=== PATIENT | male | born 1980 | race Caucasian/White ===

== ENCOUNTER 2024-06-12 19:00 | Outpatient (REF) | payer BC, SELFPAY ==
--- OUTSIDE RECORDS SUMMARY | 2024-06-12 19:03 | XMS_ITS ---
Author Organization Unknown Address [address] [place] [address] [phone] Phone Care Team Providers Care Sort Worker Name Role Phone CLYDE Baltazar Attending Unavailable Results FERRITIN - Collect Date/Time : 04/13/2022 08:16 [facility] ID: [id number] [address] [place] [address], [address] LOINC: 2276-4 Test Value Unit Reference Range Code Code System Flag FERRITIN 86 ng/mL L=8 H=388 2276-4 LOINC IRON BINDING CAPACITY - Piter ect Date/Time: 04/13/2022 08:16 [facility] ID: [id number] [address] [place] [address], [address] LOINC: 2500-7 Test Value Unit Reference Range Code Code System Flag IBC 325 ug/dL L=260 H=400 2500-7 LOINC IRON - Collect Date/Time: 08:16 [facility] ID: [id number] [address] [place] [address], [id number] LOINC: 2498-4 Test Value Unit Reference Range Code Code System Flag IRON 85 ug/dL L=35 H=150 2498-4 LOINC HEMOGLOBIN A1C* - Collect Da te/Time: 04/13/2022 08:16 [facility] ID: [id number] [address] [place] [address], [address] LOINC: 4548-4 Test Value Unit Reference Range Code Code System Flag Hgb A1c 5.7 % L=3.8 H=5.7 4548-4 LOINC MEAN BLOOD GLUCOSE 104 mg/dL 23324-0 LOINC LAMOTRIGINE (LAMICTAL)* - Co llect Date/Time: 04/13/2022 08:16 [facility] ID: [id number] [address] [facility] [place], [place], [phone] LOINC: 6948-4 Test Value Unit Reference Range Code Code System Flag Lamotrigine, S 5.7 3.0-15.0 6948-4 LOINC CBC W/ DIFFERENTIAL* - Colle ct Date/Time: 04/13/2022 08:16 [facility] ID: [id number] [address] [place] [address], [address] LOINC: 97433-0 Test Value Unit Reference Range Code Code System Flag WBC 4.92 th/cmm L=5.00 H=10.00 6690-2 LOINC L NEUT % 41.1 % L=40.0 H=80.0 LYMPH % 43.9 % L=10.0 H=50.0 MONO % 8.9 % L=2.0 H=12.0 24928-7 LOINC EOS % 4.9 % L=0.0 H=8.0 BASO % 1.0 % L=0.0 H=3.0 IG % 0.2 % L=0.0 H=1.1 2514-8 LOINC NRBC % 0.0 % L=0.0 H=0.0 98164-2 LOINC NEUT abs count 2.0 th/cmm L=1.6 H=8.4 751-8 LOINC LYMPH abs count 2.2 th/cmm L=1.5 H=4.0 731-0 LOINC MONO abs count 0.4 th/cmm L=0.2 H=1.0 742-7 LOINC EOS abs count 0.2 th/cmm L=0.0 H=0.5 711-2 LOINC BASO abs count 0.1 th/cmm L=0.0 H=0.2 704-7 LOINC IG abs count 0.0 th/cmm L=0.0 H=0.1 06181-9 LOINC NRBC abs count 0.0 mil/cmm L=0.0 H=0.0 66295-1 LOINC RBC 4.70 mil/cmm L=4.30 H=6.20 789-8 LOINC HEMOGLOBIN 14.7 gm/dL L=13.0 H=17.0 718-7 LOINC HEMATOCRIT 43 % L=45 H=52 4544-3 LOINC L MCV 91 fL L=82 H=92 787-2 LOINC MCH 31.3 pg L=27.0 H=31.0 785-6 LOINC H MCHC 34.3 % L=32.0 H=36.0 786-4 LOINC RDW-SD 41.1 fL L=39.0 H=49.0 788-0 LOINC PLATELET COUNT 199 th/cmm L=150 H=450 777-3 LOINC COMPREHENSIVE METABOLIC PANE L (CMP) - Collect Date/Time: 04/13/2022 08:16 [facility] ID: [id number] [address] [place] [address], [address] LOINC: 29295-6 Test Value Unit Reference Range Code Code System Flag GLUCOSE 102 mg/dL L=70 H=116 2345-7 LOINC BUN 20 mg/dL L=6 H=25 3094-0 LOINC CREATININE 0.99 mg/dL L=0.67 H=1.17 2160-0 LOINC SODIUM SERUM 139 mmol/L L=136 H=145 2951-2 LOINC POTASSIUM SERUM 4.5 mmol/L L=3.4 H=5.2 2823-3 LOINC CHLORIDE SERUM 103 mmol/L L=96 H=110 2075-0 LOINC CARBON DIOXIDE (CO2) 33 mmol/L L=22 H=34 2028-9 LOINC ANION GAP 2.7 mmol/L 13627-6 LOINC CALCIUM SERUM 8.4 mg/dL L=8.2 H=10.2 82921-5 LOINC BILIRUBIN TOTAL 0.5 mg/dL L=0.0 H=1.3 1975-2 LOINC ALK. PHOS. 54 U/L L=46 H=116 6768-6 LOINC SGOT (AST) 52 U/L L=15 H=37 1920-8 LOINC H SGPT (ALT) 77 U/L L=12 H=78 1742-6 LOINC TOTAL PROTEIN 7.1 gm/dL L=6.0 H=8.0 2885-2 LOINC ALBUMIN 4.2 gm/dL L=3.4 H=5.0 1751-7 INC AGE 42 years eGFR (non-Afr.Amer.) 83 mL/min 80727-0 INC eGFR (Afr-Algerian) 100 mL/min 76440-7 [facility] Social History Type Status Start Date End Date Code Code Syst em Smoking History Never smoker (Never Smoked) 491173642 SNOMED CT Sex Male Medications Medication Start Date End Date Route Frequency Dose Code Code System Medication Instructions Home Meds Atorvastatin Calcium 40MG Oral Tablet 03/16/2024 03/16/2024 ORAL BEDTIME 40 MILLIGRAMS 209628 RxNorm TAKE 40 MILLIGRAMS ORAL BEDTIME LaMICtal 200MG Oral Tablet 03/16/2024 05/31/2024 ORAL TWICE A DAY 200 MILLIGRAMS 786410 RxNorm TAKE 200 MILLIGRAMS ORAL TWICE A DAY Eliquis 5MG Oral Tablet 03/16/2024 03/16/2024 ORAL TWICE A DAY 1 TABLET 2075456 RxNorm TAKE 1 TABLET ORAL TWICE A DAY Atorvastatin Calcium 40MG Oral Tablet 03/16/2024 03/16/2024 ORAL BEDTIME 40 MILLIGRAMS 607487 RxNorm TAKE 40 MILLIGRAMS ORAL BEDTIME Eliquis 5MG Oral Tablet 03/16/2024 03/16/2024 ORAL TWICE A DAY 1 TABLET 6165159 RxNorm TAKE 1 TABLET ORAL TWICE A DAY Atorvastatin Calcium 40MG Oral Tablet 03/16/2024 Unknown ORAL BEDTIME 1 TABLET 095562 RxNorm TAKE 1 TABLET ORAL BEDTIME Aspirin 81MG Oral Tablet, Enteric Coated 03/16/2024 Unknown ORAL DAILY 1 TABLET 562462 RxNorm TAKE 1 TABLET ORAL DAILY Clopidogrel 75MG Oral Tablet 03/16/2024 05/31/2024 ORAL DAILY 1 TABLET 910431 RxNorm TAKE 1 TABLET ORAL DAILY Cephalexin 500MG Oral Capsule 03/29/2024 05/31/2024 ORAL FOUR TIMES A DAY 1 CAPSULE 099589 RxNorm TAKE 1 CAPSULE ORAL FOUR TIMES A DAY x 5 days cefTRIAXone 2GM Injection Powder for Solution 06/08/2024 Unknown IVPB Q24H 2 GRAM RxNorm 2 GRAM IVPB Q24H LORazepam 0.5 MG Oral Tablet 06/08/2024 Unknown ORAL NEEDED DAILY 0.5 MG RxNorm TAKE 0.5 MG ORAL NEEDED DAILY lamoTRIgine 200MG Oral Tablet 06/08/2024 Unknown ORAL TWICE A DAY 200 MILLIGRAMS 19830723 RxNorm TAKE 200 MILLIGRAMS ORAL TWICE A DAY Assessment You had the following problems:STROKEAORTIC REGURGITATIONMITRAL REGURGITATIONBACTEREMIAINFECTIVE ENDOCARDITIS Hospital Discharge Instructions Should you have any questions prior to discharge, please contact a member of your healthcare team. If you have left the hospital and have any questions, please contact your primary care physician. Reason For Referral No Data Found Problems Problem Start Date Resolved Date Status Code Code System STROKE active 001926888 SNOMED-CT AORTIC REGURGITATION active 68880206 SNOMED-CT MITRAL REGURGITATION active 65228199 SNOMED-CT BACTEREMIA active 3031288 SNOMED-CT INFECTIVE ENDOCARDITIS active 5628684 07 SNOMED-CT MITRAL REGURGITATION 05/31/2024 resolved 00472594 SNOMED-CT CVA 03/29/2024 resolved 690123390 SNOMED-CT AORTIC REGURGITATION 05/31/2024 resolved 12137220 SNOMED-CT SEIZURE DISORDER 03/08/2024 resolved 782911412 SN OMED-CT Allergies and Adverse Reactions Allergy Substance Reaction Severity Start Date Concern Status Co de Code System No Known Allergies Active 507188781 SNO MED-CT Plan of Treatment US DVT BILAT 05/24/2024 LAB DRAW 15MIN 04/11/2024 LAB DRAW 15MIN 07/07/2022 LAB DRAW 15MIN 04/13/2022 Encounters Encounter Diagnosis Start Date Code Code Sys tem Epilepsy, not refractory 04/13/2022 639700709 SNO MED-CT Personal Care Team Section Performer Name Performer Role Active Date Inactive Da destiney
--- OUTSIDE RECORDS SUMMARY | 2024-06-12 19:03 | XMS_ITS ---
Author Organization Unknown Address [address] [place] [address] [phone] Phone Care Team Providers Care Cleaners Name Role Phone SIRI Downey Attending Unavailable CLYDE Baltazar Primary Unavailable Results LAMOTRIGINE (LAMICTAL)* - Co llect Date/Time: 07/07/2022 08:25 [facility] ID: [id number] [address] [place] [address], [id number] LOINC: 6948-4 Test Value Unit Reference Range Code Code System Flag Lamotrigine, S 4.3 3.0-15.0 6948-4 LOINC CBC W/ DIFFERENTIAL* - Colle ct Date/Time: 07/07/2022 08:25 [facility] ID: [id number] [address] [place] [address], [address] LOINC: 94968-8 Test Value Unit Reference Range Code Code System Flag WBC 3.83 th/cmm L=5.00 H=10.00 6690-2 LOINC L NEUT % 36.6 % L=40.0 H=80.0 L LYMPH % 48.6 % L=10.0 H=50.0 MONO % 9.1 % L=2.0 H=12.0 74775-2 LOINC EOS % 4.4 % L=0.0 H=8.0 BASO % 1.3 % L=0.0 H=3.0 IG % 0.0 % L=0.0 H=1.1 2514-8 LOINC NRBC % 0.0 % L=0.0 H=0.0 68008-4 LOINC NEUT abs count 1.4 th/cmm L=1.6 H=8.4 751-8 LOINC L LYMPH abs count 1.9 th/cmm L=1.5 H=4.0 731-0 LOINC MONO abs count 0.4 th/cmm L=0.2 H=1.0 742-7 LOINC EOS abs count 0.2 th/cmm L=0.0 H=0.5 711-2 LOINC BASO abs count 0.1 th/cmm L=0.0 H=0.2 704-7 LOINC IG abs count 0.0 th/cmm L=0.0 H=0.1 20796-7 LOINC NRBC abs count 0.0 mil/cmm L=0.0 H=0.0 31952-7 LOINC RBC 4.53 mil/cmm L=4.30 H=6.20 789-8 LOINC HEMOGLOBIN 14.3 gm/dL L=13.0 H=17.0 718-7 LOINC HEMATOCRIT 41 % L=45 H=52 4544-3 LOINC L MCV 91 fL L=82 H=92 787-2 LOINC MCH 31.6 pg L=27.0 H=31.0 785-6 LOINC H MCHC 34.6 % L=32.0 H=36.0 786-4 LOINC RDW-SD 41.4 fL L=39.0 H=49.0 788-0 LOINC PLATELET COUNT 187 th/cmm L=150 H=450 777-3 LOINC COMPREHENSIVE METABOLIC PANE L ([facility]) - Collect Date/Time: 07/07/2022 08:25 [facility] ID: [id number] [address] [place], [place], [address] LOINC: 85188-1 Test Value Unit Reference Range Code Code System Flag GLUCOSE 80 mg/dL L=70 H=116 2345-7 LOINC BUN 19 mg/dL L=6 H=25 3094-0 LOINC CREATININE 0.90 mg/dL L=0.67 H=1.17 2160-0 LOINC SODIUM SERUM 142 mmol/L L=136 H=145 2951-2 LOINC POTASSIUM SERUM 4.7 mmol/L L=3.4 H=5.2 2823-3 LOINC CHLORIDE SERUM 103 mmol/L L=96 H=110 2075-0 LOINC CARBON DIOXIDE (CO2) 32 mmol/L L=22 H=34 2028-9 LOINC ANION GAP 7.0 mmol/L 83706-4 LOINC CALCIUM SERUM 8.7 mg/dL L=8.2 H=10.2 00926-3 LOINC BILIRUBIN TOTAL 0.4 mg/dL L=0.0 H=1.3 1975-2 LOINC ALK. PHOS. 52 U/L L=46 H=116 6768-6 LOINC SGOT (AST) 27 U/L L=15 H=37 1920-8 LOINC SGPT (ALT) 32 U/L L=12 H=78 1742-6 LOINC TOTAL PROTEIN 6.6 gm/dL L=6.0 H=8.0 2885-2 LOINC ALBUMIN 3.9 gm/dL L=3.4 H=5.0 1751-7 LOINC AGE 42 years eGFR (non-Afr.Amer.) 93 mL/min 34814-5 LOINC eGFR (Afr-Honduran) 112 mL/min 78571-4 LOINC Social History Type Status Start Date End Date Code Code Syst em Smoking History Never smoker (Never Smoked) 101728718 SNOMED CT Sex Male Medications Medication Start Date End Date Route Frequency Dose Code Code System Medication Instructions Home Meds Atorvastatin Calcium 40MG Oral Tablet 03/16/2024 03/16/2024 ORAL BEDTIME 40 MILLIGRAMS 686697 RxNorm TAKE 40 MILLIGRAMS ORAL BEDTIME LaMICtal 200MG Oral Tablet 03/16/2024 05/31/2024 ORAL TWICE A DAY 200 MILLIGRAMS 710729 RxNorm TAKE 200 MILLIGRAMS ORAL TWICE A DAY Eliquis 5MG Oral Tablet 03/16/2024 03/16/2024 ORAL TWICE A DAY 1 TABLET 4096569 RxNorm TAKE 1 TABLET ORAL TWICE A DAY Atorvastatin Calcium 40MG Oral Tablet 03/16/2024 03/16/2024 ORAL BEDTIME 40 MILLIGRAMS 707314 RxNorm TAKE 40 MILLIGRAMS ORAL BEDTIME Eliquis 5MG Oral Tablet 03/16/2024 03/16/2024 ORAL TWICE A DAY 1 TABLET 2080442 RxNorm TAKE 1 TABLET ORAL TWICE A DAY Atorvastatin Calcium 40MG Oral Tablet 03/16/2024 Unknown ORAL BEDTIME 1 TABLET 062425 RxNorm TAKE 1 TABLET ORAL BEDTIME Aspirin 81MG Oral Tablet, Enteric Coated 03/16/2024 Unknown ORAL DAILY 1 TABLET 568528 RxNorm TAKE 1 TABLET ORAL DAILY Clopidogrel 75MG Oral Tablet 03/16/2024 05/31/2024 ORAL DAILY 1 TABLET 433459 RxNorm TAKE 1 TABLET ORAL DAILY Cephalexin 500MG Oral Capsule 03/29/2024 05/31/2024 ORAL FOUR TIMES A DAY 1 CAPSULE 042756 RxNorm TAKE 1 CAPSULE ORAL FOUR TIMES [...] Date Status Code Code System STROKE active 531939096 SNOMED-CT AORTIC REGURGITATION active 83012087 SNOMED-CT MITRAL REGURGITATION active 36762990 SNOMED-CT BACTEREMIA active 3206923 SNOMED-CT INFECTIVE ENDOCARDITIS active 1071546 07 SNOMED-CT MITRAL REGURGITATION 05/31/2024 resolved 31775504 SNOMED-CT CVA 03/29/2024 resolved 424199268 SNOMED-CT AORTIC REGURGITATION 05/31/2024 resolved 86401132 SNOMED-CT SEIZURE DISORDER 03/08/2024 resolved 570302415 SN OMED-CT Allergies and Adverse Reactions Allergy Substance Reaction Severity Start Date Concern Status Co de Code System No Known Allergies Active 677712957 SNO MED-CT Plan of Treatment US DVT BILAT 05/24/2024 LAB DRAW 15MIN 04/11/2024 LAB DRAW 15MIN 07/07/2022 LAB DRAW 15MIN 04/13/2022 Encounters Encounter Diagnosis Start Date Code Code Sys tem Epilepsy, unspecified, not i ntractable, without status epilepticus 07/07/2022 SNOMED-CT Personal Care Team Section Performer Name Performer Role Active Date Inactive Da te
--- OUTSIDE RECORDS SUMMARY | 2024-06-12 19:04 | XMS_ITS ---
Author Organization Unknown Address [address] [place] [address] [phone] Phone Care Team Providers Care Mailer Name Role Phone FRANCOISE Baltazar Attending Unavailable CLYDE Baltazar Primary Unavailable Social History Type Status Start Date End Date Code Code Syst em Smoking History Never smoker (Never Smoked) 534144129 SNOMED CT Sex Male Vital Signs Vital Sign Value Unit [place] Value [place] Unit Date/Time Recent/Initial? Code Code System Systolic Blood Pressure 116 mm[Hg] 04/28/2024 15:05 Initial 8480-6 INC Diastolic Blood Pressure 61 mm[Hg] 04/28/2024 15:05 Initial 8462-4 [facility] O2 Saturation 99 % 2023 15:05 Initial 66242- 5 [facility] Pulse 60.0 /min 04/28/2024 15:05 Initial 8867-4 LOINC Respiration 10 /min 04/28/20 15:05 Initial 9279-1 [facility] Temperature 36.3 [place] 97.3 F 04/28/20 15:05 Initial 8310-5 [facility] Medications Medication Start Date End Date Route Frequency Dose Code Code System Medication Instructions Home Meds LaMICtal 200MG Oral Tablet 03/16/2024 05/31/2024 ORAL TWICE A DAY 200 MILLIGRAMS 757532 RxNorm TAKE 200 MILLIGRAMS ORAL TWICE A DAY Atorvastatin Calcium 40MG Oral Tablet 03/16/2024 Unknown ORAL BEDTIME 1 TABLET 719148 RxNorm TAKE 1 TABLET ORAL BEDTIME Aspirin 81MG Oral Tablet, Enteric Coated 03/16/2024 Unknown ORAL DAILY 1 TABLET 868278 RxNorm TAKE 1 TABLET ORAL DAILY Clopidogrel 75MG Oral Tablet 03/16/2024 05/31/2024 ORAL DAILY 1 TABLET 336715 RxNorm TAKE 1 TABLET ORAL DAILY Cephalexin 500MG Oral Capsule 03/29/2024 05/31/2024 ORAL FOUR TIMES A DAY 1 CAPSULE 482751 RxNorm TAKE 1 CAPSULE ORAL FOUR TIMES [...] Date Status Code Code System STROKE active 791331529 SNOMED-CT AORTIC REGURGITATION active 91933405 SNOMED-CT MITRAL REGURGITATION active 77459245 SNOMED-CT BACTEREMIA active 2689240 SNOMED-CT INFECTIVE ENDOCARDITIS active 4569662 07 SNOMED-CT MITRAL REGURGITATION 05/31/2024 resolved 31996121 SNOMED-CT CVA 03/29/2024 resolved 766409691 SNOMED-CT AORTIC REGURGITATION 05/31/2024 resolved 72259137 SNOMED-CT SEIZURE DISORDER 03/08/2024 resolved 428348802 SN OMED-CT Allergies and Adverse Reactions Allergy Substance Reaction Severity Start Date Concern Status Co de Code System No Known Allergies Active 178564305 SNO MED-CT Plan of Treatment US DVT BILAT 05/24/2024 LAB DRAW 15MIN 04/11/2024 LAB DRAW 15MIN 07/07/2022 LAB DRAW 15MIN 04/13/2022 Encounters Encounter Diagnosis Start Date Code Code Sys tem Nonrheumatic aortic (valve) insufficiency 04/28/2024 SNOMED-CT Personal Care Team Section Performer Name Performer Role Active Date Inactive Da destiney
--- OUTSIDE RECORDS SUMMARY | 2024-06-12 19:04 | XMS_ITS ---
Author Organization Unknown Address [address] [place] [address] [phone] Phone Care Team Providers Care Esthetician Permanent Makeup Artist Name Role Phone VERO Ambrose Attending Unavailable CLYDE Baltazar Primary Unavailable Social History Type Status Start Date End Date Code Code Syst em Smoking History Never smoker (Never Smoked) 771499487 SNOMED CT Sex Male Medications Medication Start Date End Date Route Frequency Dose Code Code System Medication Instructions Home Meds Atorvastatin Calcium 40MG Oral Tablet 03/16/2024 03/16/2024 ORAL BEDTIME 40 MILLIGRAMS 202508 RxNorm TAKE 40 MILLIGRAMS ORAL BEDTIME LaMICtal 200MG Oral Tablet 03/16/2024 05/31/2024 ORAL TWICE A DAY 200 MILLIGRAMS 407157 RxNorm TAKE 200 MILLIGRAMS ORAL TWICE A DAY Eliquis 5MG Oral Tablet 03/16/2024 03/16/2024 ORAL TWICE A DAY 1 TABLET 6129261 RxNorm TAKE 1 TABLET ORAL TWICE A DAY Atorvastatin Calcium 40MG Oral Tablet 03/16/2024 03/16/2024 ORAL BEDTIME 40 MILLIGRAMS 806887 RxNorm TAKE 40 MILLIGRAMS ORAL BEDTIME Eliquis 5MG Oral Tablet 03/16/2024 03/16/2024 ORAL TWICE A DAY 1 TABLET 0589454 RxNorm TAKE 1 TABLET ORAL TWICE A DAY Atorvastatin Calcium 40MG Oral Tablet 03/16/2024 Unknown ORAL BEDTIME 1 TABLET 966311 RxNorm TAKE 1 TABLET ORAL BEDTIME Aspirin 81MG Oral Tablet, Enteric Coated 03/16/2024 Unknown ORAL DAILY 1 TABLET 300220 RxNorm TAKE 1 TABLET ORAL DAILY Clopidogrel 75MG Oral Tablet 03/16/2024 05/31/2024 ORAL DAILY 1 TABLET 654047 RxNorm TAKE 1 TABLET ORAL DAILY Cephalexin 500MG Oral Capsule 03/29/2024 05/31/2024 ORAL FOUR TIMES A DAY 1 CAPSULE 049332 RxNorm TAKE 1 CAPSULE ORAL FOUR TIMES [...] Date Status Code Code System STROKE active 299856808 SNOMED-CT AORTIC REGURGITATION active 67378407 SNOMED-CT MITRAL REGURGITATION active 43505557 SNOMED-CT BACTEREMIA active 5272504 SNOMED-CT INFECTIVE ENDOCARDITIS active 5873236 07 SNOMED-CT MITRAL REGURGITATION 05/31/2024 resolved 50514046 SNOMED-CT CVA 03/29/2024 resolved 500689983 SNOMED-CT AORTIC REGURGITATION 05/31/2024 resolved 52828722 SNOMED-CT SEIZURE DISORDER 03/08/2024 resolved 573584688 SN OMED-CT Allergies and Adverse Reactions Allergy Substance Reaction Severity Start Date Concern Status Co de Code System No Known Allergies Active 780096414 SNO MED-CT Plan of Treatment US DVT BILAT 05/24/2024 LAB DRAW 15MIN 04/11/2024 LAB DRAW 15MIN 07/07/2022 LAB DRAW 15MIN 04/13/2022 Encounters Encounter Diagnosis Start Date Code Code Sys tem Cervical radiculopathy 07/06/2023 47156483 SNOME D-CT Personal Care Team Section Performer Name Performer Role Active Date Inactive Da destiney
--- OUTSIDE RECORDS SUMMARY | 2024-06-12 19:05 | XMS_ITS ---
Author Organization Unknown Address [address], [place] [phone] Phone Care Team Providers Care Hub Bander Name Role Phone MICHELLE OSBORNEHAL Attending Unavailable Social History Type Status Start Date End Date Code Code Syst em Smoking History Never smoker (Never Smoked) 249401232 SNOMED CT Sex Male Medications Medication Start Date End Date Route Frequency Dose Code Code System Medication Instructions Home Meds Atorvastatin Calcium 40MG Oral Tablet 03/16/2024 03/16/2024 ORAL BEDTIME 40 MILLIGRAMS 785210 RxNorm TAKE 40 MILLIGRAMS ORAL BEDTIME LaMICtal 200MG Oral Tablet 03/16/2024 05/31/2024 ORAL TWICE A DAY 200 MILLIGRAMS 573588 RxNorm TAKE 200 MILLIGRAMS ORAL TWICE A DAY Eliquis 5MG Oral Tablet 03/16/2024 03/16/2024 ORAL TWICE A DAY 1 TABLET 1924899 RxNorm TAKE 1 TABLET ORAL TWICE A DAY Atorvastatin Calcium 40MG Oral Tablet 03/16/2024 03/16/2024 ORAL BEDTIME 40 MILLIGRAMS 067837 RxNorm TAKE 40 MILLIGRAMS ORAL BEDTIME Eliquis 5MG Oral Tablet 03/16/2024 03/16/2024 ORAL TWICE A DAY 1 TABLET 9888521 RxNorm TAKE 1 TABLET ORAL TWICE A DAY Atorvastatin Calcium 40MG Oral Tablet 03/16/2024 Unknown ORAL BEDTIME 1 TABLET 414278 RxNorm TAKE 1 TABLET ORAL BEDTIME Aspirin 81MG Oral Tablet, Enteric Coated 03/16/2024 Unknown ORAL DAILY 1 TABLET 564523 RxNorm TAKE 1 TABLET ORAL DAILY Clopidogrel 75MG Oral Tablet 03/16/2024 05/31/2024 ORAL DAILY 1 TABLET 686947 RxNorm TAKE 1 TABLET ORAL DAILY Cephalexin 500MG Oral Capsule 03/29/2024 05/31/2024 ORAL FOUR TIMES A DAY 1 CAPSULE 505811 RxNorm TAKE 1 CAPSULE ORAL FOUR TIMES [...] Date Status Code Code System STROKE active 848178434 SNOMED-CT AORTIC REGURGITATION active 83515510 SNOMED-CT MITRAL REGURGITATION active 96808670 SNOMED-CT BACTEREMIA active 1202167 SNOMED-CT INFECTIVE ENDOCARDITIS active 6378296 07 SNOMED-CT MITRAL REGURGITATION 05/31/2024 resolved 20306853 SNOMED-CT CVA 03/29/2024 resolved 197527949 SNOMED-CT AORTIC REGURGITATION 05/31/2024 resolved 06809442 SNOMED-CT SEIZURE DISORDER 03/08/2024 resolved 674834989 SN OMED-CT Allergies and Adverse Reactions Allergy Substance Reaction Severity Start Date Concern Status Co de Code System No Known Allergies Active 540247891 SNO MED-CT Plan of Treatment US DVT BILAT 05/24/2024 LAB DRAW 15MIN 04/11/2024 LAB DRAW 15MIN 07/07/2022 LAB DRAW 15MIN 04/13/2022 Encounters Encounter Diagnosis Start Date Code Code Sys tem Cerebral infarction, unspecified 03/14/2024 SNOMED-CT Personal Care Team Section Performer Name Performer Role Active Date Inactive Da te
--- OUTSIDE RECORDS SUMMARY | 2024-06-12 19:05 | XMS_ITS ---
Author Organization Unknown Address [address] [place] [address] [phone] Phone Care Team Providers Care Supervisor Coffee Name Role Phone ESTEBANCATIE WEINSTEIN Giovanny Attending Unavailable Social History Type Status Start Date End Date Code Code Syst em Smoking History Never smoker (Never Smoked) 084360076 SNOMED CT Sex Male Medications Medication Start Date End Date Route Frequency Dose Code Code System Medication Instructions Home Meds LaMICtal 200MG Oral Tablet 03/16/2024 05/31/2024 ORAL TWICE A DAY 200 MILLIGRAMS 004015 RxNorm TAKE 200 MILLIGRAMS ORAL TWICE A DAY Atorvastatin Calcium 40MG Oral Tablet 03/16/2024 Unknown ORAL BEDTIME 1 TABLET 766437 RxNorm TAKE 1 TABLET ORAL BEDTIME Aspirin 81MG Oral Tablet, Enteric Coated 03/16/2024 Unknown ORAL DAILY 1 TABLET 353332 RxNorm TAKE 1 TABLET ORAL DAILY Clopidogrel 75MG Oral Tablet 03/16/2024 05/31/2024 ORAL DAILY 1 TABLET 131263 RxNorm TAKE 1 TABLET ORAL DAILY Cephalexin 500MG Oral Capsule 03/29/2024 05/31/2024 ORAL FOUR TIMES A DAY 1 CAPSULE 875277 RxNorm TAKE 1 CAPSULE ORAL FOUR TIMES [...] Date Status Code Code System STROKE active 517052007 SNOMED-CT AORTIC REGURGITATION active 99387151 SNOMED-CT MITRAL REGURGITATION active 33093355 SNOMED-CT BACTEREMIA active 3690635 SNOMED-CT INFECTIVE ENDOCARDITIS active 5556237 07 SNOMED-CT MITRAL REGURGITATION 05/31/2024 resolved 69139923 SNOMED-CT CVA 03/29/2024 resolved 835523858 SNOMED-CT AORTIC REGURGITATION 05/31/2024 resolved 11283223 SNOMED-CT SEIZURE DISORDER 03/08/2024 resolved 739366536 SN OMED-CT Allergies and Adverse Reactions Allergy Substance Reaction Severity Start Date Concern Status Co de Code System No Known Allergies Active 678915143 SNO MED-CT Plan of Treatment US DVT BILAT 05/24/2024 LAB DRAW 15MIN 04/11/2024 LAB DRAW 15MIN 07/07/2022 LAB DRAW 15MIN 04/13/2022 Encounters Encounter Diagnosis Start Date Code Code Sys tem Supraventricular tachycardia 04/28/2024 7850068 SNOMED-CT Personal Care Team Section Performer Name Performer Role Active Date Inactive Da te
--- OUTSIDE RECORDS SUMMARY | 2024-06-12 19:05 | XMS_ITS ---
Author Organization Unknown Address [address] [place] [phone] Phone Care Team Providers Care Product Introduction Manager Name Role Phone NADEEM JALLOH Registered Nurse Unavailable PHANI Diaz Attending Unavailable CLYDE Baltazar Primary Unavailable UNLISTED PROVIDER - REQUESTED Xhandoff Un available Results URINALYSIS WITH REFLEX CULT IF POSITIVE* - Collect Date/Time: 03/08/2024 03:58 ID: [id number] [address] [place] [address], [address] LOINC: 77507-6 Test Value Unit Reference Range Code Code System Flag COLLECTION MODE: CLEAN CATCH 79897-7 LOINC Color STRAW yellow 5778-6 LOINC Appearance CLEAR clear 5767-9 LOINC Glucose urine NEGATIVE negative mg/dl 21637-9 LOINC Bilirubin NEGATIVE negative 5770-3 LOINC Ketones NEGATIVE negative mg/dl 2514-8 LOINC Spec gravity <=1.005 1.003 - 1.030 5811-5 LOINC pH urine 6.5 5.0 - 7.0 2756-5 LOINC Protein NEGATIVE negative mg/dl 53969-7 LOINC Urobilinogen 0.2 <or= 1 EU/dl 76048-9 LOINC Nitrite. NEGATIVE negative 5802-4 LOINC Blood NEGATIVE negative 5794-3 LOINC Leukocytes. NEGATIVE negative MICROSCOPIC NOT INDICAT C REACTIVE PROTEIN HIGH SENS ITIVITY* - Collect Date/Time: 03/08/2024 01:50 ID: [id number] [address] [place] [address], [address] LOINC: 71454-5 Test Value Unit Reference Range Code Code System Flag CRP-HIGH SENS. 19.44 mg/L L=0.00 H=3.00 30217-2 LOINC H CRP-HIGH SENS 1.94 mg/dL L=0.00 H=0.30 75813-3 LOINC H COMPREHENSIVE METABOLIC PANE L (CMP) - Collect Date/Time: 03/08/2024 01:50 ID: [id number] [address] [place], [place], [address] LOINC: 03070-4 Test Value Unit Reference Range Code Code System Flag GLUCOSE 128 mg/dL L=70 H=116 2345-7 LOINC H BUN 24 mg/dL L=6 H=25 3094-0 LOINC CREATININE 1.04 mg/dL L=0.67 H=1.17 2160-0 LOINC SODIUM SERUM 135 mmol/L L=136 H=145 2951-2 LOINC L POTASSIUM SERUM 4.1 mmol/L L=3.4 H=5.2 2823-3 LOINC CHLORIDE SERUM 99 mmol/L L=96 H=110 2075-0 LOINC CARBON DIOXIDE (CO2) 28 mmol/L L=22 H=34 2028-9 LOINC ANION GAP 7.6 mmol/L 87774-8 LOINC CALCIUM SERUM 8.9 mg/dL L=8.2 H=10.2 24410-0 LOINC BILIRUBIN TOTAL 0.4 mg/dL L=0.0 H=1.3 1975-2 LOINC ALK. PHOS. 90 U/L L=46 H=116 6768-6 LOINC SGOT (AST) 30 U/L L=15 H=37 1920-8 LOINC SGPT (ALT) 33 U/L L=12 H=78 1742-6 LOINC TOTAL PROTEIN 7.7 gm/dL L=6.0 H=8.0 2885-2 LOINC ALBUMIN 3.6 gm/dL L=3.4 H=5.0 1751-7 LOINC AGE 44 years eGFR (non-Afr.Amer.) 78 mL/min 17463-3 LOINC eGFR (Afr-Nigerian) 94 mL/min 98740-2 LOINC CBC W/ DIFFERENTIAL* - Colle ct Date/Time: 03/08/2024 01:50 ID: [id number] [address] [place], [place], [address] LOINC: 10229-8 Test Value Unit Reference Range Code Code System Flag WBC 11.80 th/cmm L=5.00 H=10.00 6690-2 LOINC H NEUT % 78.8 % L=40.0 H=80.0 LYMPH % 14.2 % L=10.0 H=50.0 MONO % 6.0 % L=2.0 H=12.0 96382-2 LOINC EOS % 0.3 % L=0.0 H=8.0 BASO % 0.3 % L=0.0 H=3.0 IG % 0.4 % L=0.0 H=1.1 2514-8 LOINC NRBC % 0.0 % L=0.0 H=0.0 65496-2 LOINC NEUT abs count 9.3 th/cmm L=1.6 H=8.4 751-8 LOINC H LYMPH abs count 1.7 th/cmm L=1.5 H=4.0 731-0 LOINC MONO abs count 0.7 th/cmm L=0.2 H=1.0 742-7 LOINC EOS abs count 0.0 th/cmm L=0.0 H=0.5 711-2 LOINC BASO abs count 0.0 th/cmm L=0.0 H=0.2 704-7 LOINC IG abs count 0.1 th/cmm L=0.0 H=0.1 59168-5 LOINC NRBC abs count 0.0 mil/cmm L=0.0 H=0.0 63289-4 LOINC RBC 4.57 mil/cmm L=4.30 H=6.20 789-8 LOINC HEMOGLOBIN 13.6 gm/dL L=13.0 H=17.0 718-7 LOINC HEMATOCRIT 41 % L=45 H=52 4544-3 LOINC L MCV 89 fL L=82 H=92 787-2 LOINC MCH 29.8 pg L=27.0 H=31.0 785-6 LOINC MCHC 33.5 % L=32.0 H=36.0 786-4 LOINC RDW-SD 39.7 fL L=39.0 H=49.0 788-0 LOINC PLATELET COUNT 229 th/cmm L=150 H=450 777-[address] ABD PELVIS WO IV OR ORAL CONTRAST - Completed: 03/08/2024 02:09 LOINC: RADIOLOGY [place], [place] [address] 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 Multiplanar reformatted images were generated. COMPARISON: None. FINDINGS: The absence of intravenous contrast limits the evaluation of solid viscera and vasculature. Lower chest: Normal. Liver: Normal. Bile ducts: Not dilated. Gallbladder: Decompressed. No calcified gallstones.. Pancreas: Normal. Spleen: Normal. Adrenals: Normal. Right kidney/ureter: No renal calculi. Amorphous hyperdensities at the renal calyces. No collecting system dilation or calculi. Left kidney/ureter: No renal calculi. Amorphous hyperdensities at the renal calyces. No collecting system dilation or calculi. Urinary Bladder: No calculi. Vasculature: No significant findings. Lymph Nodes: No enlarged lymph nodes. Bowel: Stomach and small bowel are normal. Normal terminal ileum and appendix. Large fecal load in the cecum and ascending colon. Predominantly air-filled transverse colon with minimal stool within the otherwise relatively decompressed distal large bowel. Peritoneum: No free air or free fluid. Abdominal wall: Normal. Reproductive organs: Normal. Osseous structures: No acute osseous findings. IMPRESSION: 1. No hydronephrosis or obstructing urolithiasis. 2. Amorphous bilateral renal calyces, suggestive of medullary nephrocalcinosis. 3. Large fecal load in the proximal colon, that may be compatible with constipation. Thank you for letting us participate in the care of this patient. If you are a health care provider and have any questions regarding this report, please contact the number below. For patients who have questions please contact the health urgent care physician assistant that requested your imaging first. Electronically signed by: Nyasia Luna MD [facility] ([phone]), at 03/08/2024 3:28 AM Social History Type Status Start Date End Date Code Code Syst em Smoking History Never smoker (Never Smoked) 977731587 SNOMED CT Sex Male Vital Signs Vital Sign Value Unit [place] Value [place] Unit Date/Time Recent/Initial? Code Code System Body Mass Index 21.38 kg/m2 03/08/2024 01:47 Initial 42462 -5 LOINC Systolic Blood Pressure 128 mm[Hg] 03/08/2024 04:00 Most Recent 8480- 6 LOINC Diastolic Blood Pressure 69 mm[Hg] 03/08/2024 04:00 Most Recent 8462- 4 LOINC Systolic Blood Pressure 137 mm[Hg] 03/08/2024 01:47 Initial 8480- 6 LOINC Diastolic Blood Pressure 77 mm[Hg] 03/08/2024 01:47 Initial 8462- 4 LOINC Body Surface Area 2.15 m2 03/08/2024 01:47 Initial 3140- 1 LOINC Height 198.120 0 cm 78.00 in 03/08/2024 01:47 Initial 8302- 2 LOINC O2 Saturation 99 % 2023 04:00 Most Recent 54005 -5 LOINC O2 Saturation 99 % 2023 01:47 Initial 95269 -5 LOINC Pulse 83.0 /min 03/08/2024 04:00 Most Recent 8867- 4 LOINC Pulse 93.0 /min 03/08/2024 01:47 Initial 8867- 4 LOINC Respiration 16 /min 03/08/20 04:00 Most Recent 9279- 1 LOINC Respiration 18 /min 03/08/20 01:47 Initial 9279- 1 LOINC Temperature 36.6 [place] 97.9 F 03/08/20 01:47 Initial 8310- 5 LOINC Weight 83.91 kg 185.00 lbs 03/08/2024 01:47 Initial 08217 -7 [facility] Medications Medication Start Date End Date Route Frequency Dose Code Code System Medication Instructions Home Meds Atorvastatin Calcium 40MG Oral Tablet 03/16/2024 03/16/2024 ORAL BEDTIME 40 MILLIGRAMS 853866 RxNorm TAKE 40 MILLIGRAMS ORAL BEDTIME LaMICtal 200MG Oral Tablet 03/16/2024 05/31/2024 ORAL TWICE A DAY 200 MILLIGRAMS 460039 RxNorm TAKE 200 MILLIGRAMS ORAL TWICE A DAY Eliquis 5MG Oral Tablet 03/16/2024 03/16/2024 ORAL TWICE A DAY 1 TABLET 8731403 RxNorm TAKE 1 TABLET ORAL TWICE A DAY Atorvastatin Calcium 40MG Oral Tablet 03/16/2024 03/16/2024 ORAL BEDTIME 40 MILLIGRAMS 848787 RxNorm TAKE 40 MILLIGRAMS ORAL BEDTIME Eliquis 5MG Oral Tablet 03/16/2024 03/16/2024 ORAL TWICE A DAY 1 TABLET 3919033 RxNorm TAKE 1 TABLET ORAL TWICE A DAY Atorvastatin Calcium 40MG Oral Tablet 03/16/2024 Unknown ORAL BEDTIME 1 TABLET 838254 RxNorm TAKE 1 TABLET ORAL BEDTIME Aspirin 81MG Oral Tablet, Enteric Coated 03/16/2024 Unknown ORAL DAILY 1 TABLET 984141 RxNorm TAKE 1 TABLET ORAL DAILY Clopidogrel 75MG Oral Tablet 03/16/2024 05/31/2024 ORAL DAILY 1 TABLET 220991 RxNorm TAKE 1 TABLET ORAL DAILY Cephalexin 500MG Oral Capsule 03/29/2024 05/31/2024 ORAL FOUR TIMES A DAY 1 CAPSULE 621197 RxNorm TAKE 1 CAPSULE ORAL FOUR TIMES [...] Date Status Code Code System STROKE active 354414983 SNOMED-CT AORTIC REGURGITATION active 48748083 SNOMED-CT MITRAL REGURGITATION active 16856927 SNOMED-CT BACTEREMIA active 7161430 SNOMED-CT INFECTIVE ENDOCARDITIS active 2378082 07 SNOMED-CT MITRAL REGURGITATION 05/31/2024 resolved 46374139 SNOMED-CT CVA 03/29/2024 resolved 932184257 SNOMED-CT AORTIC REGURGITATION 05/31/2024 resolved 11545219 SNOMED-CT SEIZURE DISORDER 03/08/2024 resolved 153068116 SN OMED-CT Allergies and Adverse Reactions Allergy Substance Reaction Severity Start Date Concern Status Co de Code System No Known Allergies Active 419556332 SNO MED-CT Plan of Treatment US DVT BILAT 05/24/2024 LAB DRAW 15MIN 04/11/2024 LAB DRAW 15MIN 07/07/2022 LAB DRAW 15MIN 04/13/2022 Encounters Encounter Diagnosis Start Date Code Code Sys tem Constipation 03/08/2024 14394937 SNOMED-CT Personal Care Team Section Performer Name Performer Role Active Date Inactive Da te
--- OUTSIDE RECORDS SUMMARY | 2024-06-12 19:05 | XMS_ITS ---
Author Organization Unknown Address [address], [place] [id number] Phone Care Team Providers Care Carriage Rider Name Role Phone RAYMOND SANDOVAL Registered Nurse Unavailable MICHELLE VIRK Attending Unavailable ELTON BLUE Unavailable CLYDE Baltazar Primary Unavailable UNLISTED PROVIDER - REQUESTED Xhandoff Un available Results COMPREHENSIVE METABOLIC PANE L (CMP) - Collect Date/Time: 03/15/2024 06:35 [facility] ID: [id number] [address] [place], [place], [address] LOINC: 18036-3 Test Value Unit Reference Range Code Code System Flag GLUCOSE 107 mg/dL L=70 H=116 2345-7 LOINC BUN 15 mg/dL L=6 H=25 3094-0 LOINC CREATININE 1.04 mg/dL L=0.67 H=1.17 2160-0 LOINC SODIUM SERUM 135 mmol/L L=136 H=145 2951-2 LOINC L POTASSIUM SERUM 4.3 mmol/L L=3.4 H=5.2 2823-3 LOINC CHLORIDE SERUM 101 mmol/L L=96 H=110 2075-0 LOINC CARBON DIOXIDE (CO2) 29 mmol/L L=22 H=34 2028-9 LOINC ANION GAP 4.8 mmol/L 22135-1 LOINC CALCIUM SERUM 8.5 mg/dL L=8.2 H=10.2 10918-6 LOINC BILIRUBIN TOTAL 0.4 mg/dL L=0.0 H=1.3 1975-2 LOINC ALK. PHOS. 78 U/L L=46 H=116 6768-6 LOINC SGOT (AST) 18 U/L L=15 H=37 1920-8 LOINC SGPT (ALT) 21 U/L L=12 H=78 1742-6 LOINC TOTAL PROTEIN 6.6 gm/dL L=6.0 H=8.0 2885-2 LOINC ALBUMIN 2.9 gm/dL L=3.4 H=5.0 1751-7 LOINC L AGE 44 years eGFR (non-Afr.Amer.) 78 mL/min 30082-0 LOINC eGFR (Afr-Malian) 94 mL/min 90683-6 LOINC MAGNESIUM SERUM* - Collect D ate/Time: 03/15/2024 06:35 [facility] ID: [id number] [address] [place] [address], [address] LOINC: 95517-1 Test Value Unit Reference Range Code Code System Flag MAGNESIUM 1.9 mg/dL L=1.8 H=2.4 52307-7 LOINC CBC W/ DIFFERENTIAL* - Colle ct Date/Time: 03/15/2024 06:35 [facility] ID: [id number] [address] [place] [address], [address] LOINC: 13654-6 Test Value Unit Reference Range Code Code System Flag WBC 9.24 th/cmm L=5.00 H=10.00 6690-2 LOINC NEUT % 72.7 % L=40.0 H=80.0 LYMPH % 17.7 % L=10.0 H=50.0 MONO % 7.7 % L=2.0 H=12.0 66670-2 LOINC EOS % 1.3 % L=0.0 H=8.0 BASO % 0.4 % L=0.0 H=3.0 IG % 0.2 % L=0.0 H=1.1 2514-8 LOINC NRBC % 0.0 % L=0.0 H=0.0 44496-2 LOINC NEUT abs count 6.7 th/cmm L=1.6 H=8.4 751-8 LOINC LYMPH abs count 1.6 th/cmm L=1.5 H=4.0 731-0 LOINC MONO abs count 0.7 th/cmm L=0.2 H=1.0 742-7 LOINC EOS abs count 0.1 th/cmm L=0.0 H=0.5 711-2 LOINC BASO abs count 0.0 th/cmm L=0.0 H=0.2 704-7 LOINC IG abs count 0.0 th/cmm L=0.0 H=0.1 84317-4 LOINC NRBC abs count 0.0 mil/cmm L=0.0 H=0.0 00842-4 LOINC RBC 4.07 mil/cmm L=4.30 H=6.20 789-8 LOINC L HEMOGLOBIN 12.3 gm/dL L=13.0 H=17.0 718-7 LOINC L HEMATOCRIT 36 % L=45 H=52 4544-3 LOINC L MCV 88 fL L=82 H=92 787-2 LOINC MCH 30.2 pg L=27.0 H=31.0 785-6 LOINC MCHC 34.3 % L=32.0 H=36.0 786-4 LOINC RDW-SD 39.8 fL L=39.0 H=49.0 788-0 LOINC PLATELET COUNT 234 th/cmm L=150 H=450 777-3 LOINC DRUG SCN 13 PANEL (MEDTOX)* - Collect Date/Time: 03/14/2024 12:06 [facility] ID: [id number] [address], [place], [id number] LOINC: 92758-7 Test Value Unit Reference Range Code Code System Flag CANNABINOIDS POSITIVE Cutoff = 50 ng/mL 33685-1 LOINC A PHENCYCLIDINE NEGATIVE Cutoff = 25 ng/mL 40119-2 LOINC COCAINE NEGATIVE Cutoff = 150 ng/mL 14214-3 LOINC METHAMPHETAMINES NEGATIVE Cutoff = 50 0 ng/mL 02417-6 LOINC OPIATES NEGATIVE Cutoff = 100 ng/mL 70899-8 LOINC AMPHETAMINES NEGATIVE Cutoff = 500 ng/mL 46113-9 LOINC BENZODIAZEPINES NEGATIVE Cutoff = 150 ng/mL 65822-1 LOINC TRICYCLIC ANTIDEP NEGATIVE Cutoff = 3 00 ng/mL 3533-7 LOINC METHADONE NEGATIVE Cutoff = 200 ng/mL 86499-8 LOINC BARBITURATES NEGATIVE Cutoff = 200 ng/mL 27591-6 LOINC OXYCODONE NEGATIVE Cutoff = 100 ng/mL 97090-9 LOINC BUPRENORPHINE NEGATIVE Cutoff = 10 mg/mL 3414-0 LOINC SED RATE* - Collect Date/Ike e: 03/14/2024 07:14 [facility] ID: [id number] [address] [place] [address], [address] LOINC: 4537-7 Test Value Unit Reference Range Code Code System Flag SED. RATE 34 mm/hr L=0 H=15 4537-7 LOINC H THYROID TESTING CASCADE* - C ollect Date/Time: 03/14/2024 07:14 [facility] ID: [id number] [address] [place] [address], [address] LOINC: 3016-3 Test Value Unit Reference Range Code Code System Flag TSH. 1.201 uIU/mL L=0.360 H=3.740 3014-8 LOINC LYME ANTIBODY SERUM (WITH RE FLEX TO WB)* - Collect Date/Time: 03/14/2024 07:14 [facility] ID: [id number] [address] [place] [address], [id number] LOINC: 46004-2 Test Value Unit Reference Range Code Code System Flag Lyme Antibody Negative Negative COMPREHENSIVE METABOLIC PANE L (CMP) - Collect Date/Time: 03/14/2024 07:14 [facility] ID: [id number] [address] [place] [address], [address] LOINC: 15164-4 Test Value Unit Reference Range Code Code System Flag GLUCOSE 119 mg/dL L=70 H=116 2345-7 LOINC H BUN 18 mg/dL L=6 H=25 3094-0 LOINC CREATININE 1.12 mg/dL L=0.67 H=1.17 2160-0 LOINC SODIUM SERUM 134 mmol/L L=136 H=145 2951-2 LOINC L POTASSIUM SERUM 4.0 mmol/L L=3.4 H=5.2 2823-3 LOINC CHLORIDE SERUM 99 mmol/L L=96 H=110 2075-0 LOINC CARBON DIOXIDE (CO2) 28 mmol/L L=22 H=34 2028-9 LOINC ANION GAP 6.9 mmol/L 05915-3 LOINC CALCIUM SERUM 8.3 mg/dL L=8.2 H=10.2 16557-3 LOINC BILIRUBIN TOTAL 0.4 mg/dL L=0.0 H=1.3 1975-2 LOINC ALK. PHOS. 79 U/L L=46 H=116 6768-6 LOINC SGOT (AST) 19 U/L L=15 H=37 1920-8 LOINC SGPT (ALT) 24 U/L L=12 H=78 1742-6 LOINC TOTAL PROTEIN 6.9 gm/dL L=6.0 H=8.0 2885-2 LOINC ALBUMIN 3.1 gm/dL L=3.4 H=5.0 1751-7 LOINC L AGE 44 years eGFR (non-Afr.Amer.) 71 mL/min 13326-9 LOINC eGFR (Afr-Malian) 86 mL/min 87331-1 LOINC CBC W/ DIFFERENTIAL* - Colle ct Date/Time: 03/14/2024 07:14 [facility] ID: [id number] [address] [place] [address], [address] LOINC: 17325-7 Test Value Unit Reference Range Code Code System Flag WBC 10.53 th/cmm L=5.00 H=10.00 6690-2 LOINC H NEUT % 81.3 % L=40.0 H=80.0 H LYMPH % 11.8 % L=10.0 H=50.0 MONO % 5.6 % L=2.0 H=12.0 49929-9 LOINC EOS % 0.6 % L=0.0 H=8.0 BASO % 0.4 % L=0.0 H=3.0 IG % 0.3 % L=0.0 H=1.1 2514-8 LOINC NRBC % 0.0 % L=0.0 H=0.0 36588-1 LOINC NEUT abs count 8.6 th/cmm L=1.6 H=8.4 751-8 LOINC H LYMPH abs count 1.2 th/cmm L=1.5 H=4.0 731-0 LOINC L MONO abs count 0.6 th/cmm L=0.2 H=1.0 742-7 LOINC EOS abs count 0.1 th/cmm L=0.0 H=0.5 711-2 LOINC BASO abs count 0.0 th/cmm L=0.0 H=0.2 704-7 LOINC IG abs count 0.0 th/cmm L=0.0 H=0.1 53325-0 LOINC NRBC abs count 0.0 mil/cmm L=0.0 H=0.0 64473-7 LOINC RBC 3.88 mil/cmm L=4.30 H=6.20 789-8 LOINC L HEMOGLOBIN 11.6 gm/dL L=13.0 H=17.0 718-7 LOINC L HEMATOCRIT 34 % L=45 H=52 4544-3 LOINC L MCV 88 fL L=82 H=92 787-2 LOINC MCH 29.9 pg L=27.0 H=31.0 785-6 LOINC MCHC 33.9 % L=32.0 H=36.0 786-4 LOINC RDW-SD 39.2 fL L=39.0 H=49.0 788-0 LOINC PLATELET COUNT 263 th/cmm L=150 H=450 777-3 LOINC LIPID PANEL* - Collect Date/ Time: 03/14/2024 07:14 [facility] ID: [id number] [address], [place], [id number] LOINC: Test Value Unit Reference Range Code Code System Flag FASTING STATUS: NON FASTING CHOLESTEROL 129 mg/dL L=0 H=200 2093-3 LOINC TRIGLYCERIDES 36 mg/dL L=56 H=318 2571-8 LOINC L HDL 47 mg/dL L=27 H=67 2085-9 LOINC non-HDL-C 82 mg/dL L=0 H=160 60050-3 LOINC LDL (CALC) 75 mg/dL L=0 H=130 45857-6 LOINC % HDL 36.4 % Chol/HDL Ratio 2.7 L=0.0 H=4.9 9830-1 LOINC CHD Relative Risk 0.5 x Avg L=0.0 H=1.0 LDL/HDL Ratio 1.6 L=0.0 H=3.5 67884-8 LOINC CHD Relative Risk. 0.5 x Avg L=0.0 H=1.0 HEMOGLOBIN A1C* - Collect Da te/Time: 03/14/2024 07:14 [facility] ID: [id number] [address] [place] [address], [address] LOINC: 4548-4 Test Value Unit Reference Range Code Code System Flag Hgb A1c 5.8 % L=3.8 H=5.7 4548-4 LOINC H MEAN BLOOD GLUCOSE 107 mg/dL 17260-1 LOINC C REACTIVE PROTEIN HIGH SENS ITIVITY* - Collect Date/Time: 03/14/2024 07:14 [facility] ID: [id number] [address] [place] [address], [address] LOINC: 21559-4 Test Value Unit Reference Range Code Code System Flag CRP-HIGH SENS. 19.21 mg/L L=0.00 H=3.00 24950-2 LOINC H CRP-HIGH SENS 1.92 mg/dL L=0.00 H=0.30 06738-[address] STROKE PROTOCOL W CT HEAD * - Completed: 03/14/2024 08:25 LOINC: [facility] RADIOLOGY [address], [place] [address] RADIOLOGY CONFECTIONERY COOKER REPORT Patient Name: RYLAN CRANDALL MRN: Sex: : Age: [id number] M 1980 44 Account: Accession: Admit: StayType: [id number] 03/14/2024 E Ordered: Order ID: Submitted: Ordering Provider: 03/14/2024 07:57 [id number] DEJAN RASMUSSEN Completed: Technologist: Resulted: 03/14/2024 08:09 KXR 03/14/2024 08:58 EXAMINATION: CT STROKE PROTOCOL W CT HEAD CLINICAL HISTORY: Reason for Head: Double Vision Add'l Info: R lateral rectus palsy, headache TECHNIQUE: CT of head without intravenous contrast. Multiphase CTA of the carotids and [place] is performed after the administration of 100cc of Omnipaque 350 intravenous contrast. MIP and 3-D volumetric reconstructions were created. COMPARISON: None FINDINGS: Head: No acute intracranial hemorrhage, mass effect or extra-axial collection. The moscoso-white differentiation appears maintained. Probable prominent perivascular space at the right basal ganglia. The ventricles are normal in caliber and the basilar cisterns are patent. Orbits appear unremarkable. The otomastoid spaces are clear. Opacification of a posterior right ethmoid air cell. Trace maxillary sinus mucosal thickening. CT angiogram neck and [place]: Mild apical lung scarring. Thyroid and major salivary glands appear normal. Symmetric prominence of the palatine tonsillar tissue. The brachiocephalic origin and proximal left common carotid artery is obscured by streak artifact from intravenous contrast. Visualized portions of the common carotid arteries demonstrate normal course and caliber. The internal carotid arteries are normal in course and caliber. The vertebral arteries are codominant and normal in course and caliber throughout. Probably normal basilar artery, with motion artifact at the apex creating pseudolesion in the proximal left CLERICAL ORDER FILLER. Apparent mild irregularity of the proximal left CLERICAL ORDER FILLER, possibly artifactual. Normal proximal superior cerebellar and right posterior cerebral arteries. The right and P1 CLERICAL ORDER FILLER segment is hypoplastic. IMPRESSION: No acute intracranial process. Normal CT angiogram neck. Motion artifact somewhat limits CT angiogram head exam. No central branch occlusion or definite abnormality. Thank you for letting us participate in the care of this patient. If you are a health care provider and have any questions regarding this report, please contact the number below. For patients who have questions please contact the health rn primary care that requested your imaging first. 03/14/[email or web address].[email or web address].to CLYDE [place] via fax MR BRAIN WO CONTRAST - Compl eted: 03/14/2024 10:25 LOINC: [facility] RADIOLOGY [address], [place] [address] RADIOLOGY CONFECTIONERY COOKER REPORT Patient Name: RYLAN CRANDALL MRN: Sex: : Age: [id number] M 1980 44 Account: Accession: Admit: StayType: [id number] 03/14/2024 E Ordered: Order ID: Submitted: Ordering Provider: 03/14/2024 08:09 [id number] DEJAN RASMUSSEN Completed: Technologist: Resulted: 03/14/2024 09:43 DL 03/14/2024 10:35 EXAMINATION: MR BRAIN WO CONTRAST CLINICAL HISTORY: Reason MRI Head: Facial numbness Add'l Info: R lateral rectus palsy, R facial numbness TECHNIQUE: MRI of the brain performed without intravenous contrast administration. COMPARISON: CT 03/14/2024 FINDINGS: Focal area of restricted diffusion involves the right midbrain, just ventral to the cerebral aqueduct, extending to the margin of the right peduncle, and extending anteriorly to the inferior margin of the interpeduncular fossa. There are no abnormal blood products. Major intracranial flow voids are normal. No mass effect or shift. Craniocervical junction is normal. Skull base, and pituitary appear normal. IMPRESSION: 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 This finding was discussed with Dr. Corona at the time of interpretation. Thank you for letting us participate in the care of this patient. If you are a health care provider and have any questions regarding this report, please contact the number below. For patients who have questions please contact the health rn primary care that requested your imaging first. Electronically signed by: Geoffrey Hutchison MD [facility] ([phone]), at 03/14/2024 10:35 AM 03/14/24.1040.DL .to CLYDE [place] via fax US DVT BILATERAL - Completed : 03/14/2024 15:37 LOINC: [facility] RADIOLOGY [address] [place], [place] [address] RADIOLOGY CONFECTIONERY COOKER REPORT Patient Name: RYLAN CRANDALL MRN: Sex: : Age: [id number] M 1980 44 Account: Accession: Admit: StayType: [id number] 03/14/2024 O Ordered: Order ID: Submitted: Ordering Provider: 03/14/2024 12:54 [id number] BARRINGTON MARS Completed: Technologist: Resulted: 03/14/2024 15:16 [facility] 03/14/2024 16:13 Peripheral Venous Duplex (Signed Final 03/14/2024 04:13 pm) PATIENT INFO: ID #: [id number] : [birth year] (44 yrs)(M) Name: RYLAN CRANDALL Visit Date:03/14/2024 03:40 pm PERFORMED BY: Attending: Mario Funes MD Performed By: Yair FITZGERALD, ALEX, RTRamandeep Referred By: BARRINGTON MARTINEZ Location: [facility] SERVICE(S) PROVIDED: USDVT2 - DVT Lower Extremity Complete Bilateral - [id number] INDICATIONS: Reason US Extremity: Swelling Add'l Info: b/l LE; Stroke. ?DVT TECHNIQUE/SCAN QUALITY: Technique: Moscoso scale, color and spectral Doppler of the lower extremity venous system. LOWER EXTREMITY PERIPHERAL VENOUS: RIGHT Vein Thrombu Compress Spontaneous Augment s Phasic CFV: No Yes Yes Yes FV Junc: No Yes Yes Yes PFV: No Yes Yes Yes FV Prox: No Yes Yes Yes FV Mid: No Yes Yes Yes FV Dist: No Yes Yes Yes Pop: No Yes Yes Yes PTV: No Yes Yes Peron: No Yes GSV: No Yes Yes LEFT Vein Thrombu Compress Spontaneous Augment s Phasic CFV: No Yes Yes Yes FV Junc: No Yes Yes Yes PFV: No Yes Yes Yes FV Prox: No Yes Yes Yes FV Mid: No Yes Yes Yes FV Dist: No Yes Yes Yes Pop: No Yes Yes Yes PTV: No Yes Yes Peron: No Yes GSV: No Yes Yes IMPRESSION: Impression: No evidence of acute deep venous thrombosis. Electronically signed by: Mario Funes MD Radiology Thank you for letting us participate in the care of this patient. If you are a health care provider and have any questions regarding this report, please contact the number above. For patients who have questions, please contact the health rn primary care that requested your imaging first. Mario Funes, Staff Physician Electronically Signed Final Report 03/14/2024 04:13 pm 03/14/24.1614.[facility].to [facility] via fax Social History Type Status Start Date End Date Code Code Syst em Smoking History Never smoker (Never Smoked) 188846255 SNOMED CT Sex Male Vital Signs Vital Sign Value Unit Arenac Value Arenac Unit Date/Time Recent/Initial? Code Code System Body Mass Index 20.81 kg/m2 03/14/2024 14:04 Most Recent 73583 -5 LOINC Body Mass Index 21.38 kg/m2 03/14/2024 08:06 Initial 39642 -5 LOINC Systolic Blood Pressure 130 mm[Hg] 03/16/2024 11:22 Most Recent 8480- 6 LOINC Diastolic Blood Pressure 73 mm[Hg] 03/16/2024 11:22 Most Recent 8462- 4 LOINC Systolic Blood Pressure 139 mm[Hg] 03/14/2024 08:06 Initial 8480- 6 LOINC Diastolic Blood Pressure 78 mm[Hg] 03/14/2024 08:06 Initial 8462- 4 LOINC Body Surface Area 2.12 m2 03/14/2024 14:04 Most Recent 3140- 1 LOINC Body Surface Area 2.15 m2 03/14/2024 08:06 Initial 3140- 1 LOINC Height 198.120 0 cm 78.00 in 03/14/2024 14:04 Most Recent 8302- 2 LOINC Height 198.120 0 cm 78.00 in 03/14/2024 08:06 Initial 8302- 2 LOINC O2 Saturation 99 % 2023 11:22 Most Recent 05818 -5 LOINC O2 Saturation 100 % 2023 08:06 Initial 11066 -5 LOINC Pulse 66.0 /min 03/16/2024 11:22 Most Recent 8867- 4 LOINC Pulse 74.0 /min 03/14/2024 08:06 Initial 8867- 4 LOINC Respiration 17 /min 03/16/20 11:22 Most Recent 9279- 1 LOINC Respiration 18 /min 03/14/20 08:06 Initial 9279- 1 LOINC Temperature 36.5 Roxi 97.7 F 03/16/20 11:22 Most Recent 8310- 5 LOINC Temperature 37.4 Roxi 99.3 F 03/14/20 08:06 Initial 8310- 5 LOINC Weight 81.67 kg 180.04 lbs 03/14/2024 14:04 Most Recent 82174 -7 LOINC Weight 83.91 kg 185.00 lbs 03/14/2024 08:06 Initial 70154 -7 LOINC Medications Medication Start Date End Date Route Frequency Dose Code Code System Medication Instructions Home Meds Atorvastatin Calcium 40MG Oral Tablet 03/16/2024 03/16/2024 ORAL BEDTIME 40 MILLIGRAMS 509273 RxNorm TAKE 40 MILLIGRAMS ORAL BEDTIME LaMICtal 200MG Oral Tablet 03/16/2024 05/31/2024 ORAL TWICE A DAY 200 MILLIGRAMS 617638 RxNorm TAKE 200 MILLIGRAMS ORAL TWICE A DAY Eliquis 5MG Oral Tablet 03/16/2024 03/16/2024 ORAL TWICE A DAY 1 TABLET 2238596 RxNorm TAKE 1 TABLET ORAL TWICE A DAY Atorvastatin Calcium 40MG Oral Tablet 03/16/2024 03/16/2024 ORAL BEDTIME 40 MILLIGRAMS 181066 RxNorm TAKE 40 MILLIGRAMS ORAL BEDTIME Eliquis 5MG Oral Tablet 03/16/2024 03/16/2024 ORAL TWICE A DAY 1 TABLET 5301217 RxNorm TAKE 1 TABLET ORAL TWICE A DAY Atorvastatin Calcium 40MG Oral Tablet 03/16/2024 Unknown ORAL BEDTIME 1 TABLET 708311 RxNorm TAKE 1 TABLET ORAL BEDTIME Aspirin 81MG Oral Tablet, Enteric Coated 03/16/2024 Unknown ORAL DAILY 1 TABLET 703722 RxNorm TAKE 1 TABLET ORAL DAILY Clopidogrel 75MG Oral Tablet 03/16/2024 05/31/2024 ORAL DAILY 1 TABLET 603527 RxNorm TAKE 1 TABLET ORAL DAILY Cephalexin 500MG Oral Capsule 03/29/2024 05/31/2024 ORAL FOUR TIMES A DAY 1 CAPSULE 360886 RxNorm TAKE 1 CAPSULE ORAL FOUR TIMES [...] Date Status Code Code System STROKE active 536882095 SNOMED-CT AORTIC REGURGITATION active 94602286 SNOMED-CT MITRAL REGURGITATION active 71203532 SNOMED-CT BACTEREMIA active 6654376 SNOMED-CT INFECTIVE ENDOCARDITIS active 2766067 07 SNOMED-CT MITRAL REGURGITATION 05/31/2024 resolved 48050097 SNOMED-CT CVA 03/29/2024 resolved 551053036 SNOMED-CT AORTIC REGURGITATION 05/31/2024 resolved 09312344 SNOMED-CT SEIZURE DISORDER 03/08/2024 resolved 880959348 SN OMED-CT Allergies and Adverse Reactions Allergy Substance Reaction Severity Start Date Concern Status Co de Code System No Known Allergies Active 046595784 SNO MED-CT Plan of Treatment US DVT BILAT 05/24/2024 LAB DRAW 15MIN 04/11/2024 LAB DRAW 15MIN 07/07/2022 LAB DRAW 15MIN 04/13/2022 Encounters Encounter Diagnosis Start Date Code Code Sys tem Cerebral infarction, unspecified 03/14/2024 SNOMED-CT Personal Care Team Section Performer Name Performer Role Active Date Inactive Da te Discharge Summary Notes [facility] 03/16/2024 13:11 Patient Name: RYLAN CRANDALL Date of Service: 03/16/2024 12:54 Discharge Date: 03/16/2024 Admission Diagnosis: Stroke Discharge Diagnosis: Same : Primary Care Physician: CLYDE Baltazar Recommendations: Please take medications as prescribed on the list we gave at discharge. As we discussed we need to confirm whether or not you have a diagnosis of paroxysmal atrial fibrillation. 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 If you have not had a history of atrial fibrillation, you will need different medications than the apixaban that we gave you. You may need a prolonged monitor to ascertain this diagnosis. We have sent the alfred telemetry strips from your hospitalization to Dr. Crawford and he can review the strips at your appointment on the . I would not engage in any activity that would result in a high risk of bleeding until then. We will also make a referral for neurology for you so that you can have a local neurologist as well as your primary neurologist in [place]. You can review stroke medications with neurology as well. CRP can be followed outpatient. Please continue to work with occupational therapy outpatient for your visual abnormalities. Discharge Medications: Discharge Meds List Atorvastatin Calcium 40MG Oral Tablet, TAKE 40 MILLIGRAMS ORAL BEDTIME Eliquis 5MG Oral Tablet, TAKE 1 TABLET ORAL TWICE A DAY LaMICtal 200MG Oral Tablet, TAKE 200 MILLIGRAMS ORAL TWICE A DAY History of Present Illness Patient is a 44-year-old man with a past medical history significant for severe aortic regurgitation being evaluated for surgery in [place] at the [facility], history of epilepsy on lamotrigine seen by neurology in [place]. He also has a history of paroxysmal A-fib and is not on anticoagulation. Patient was seen in the ED last week for constipation. He is otherwise had a series of musculoskeletal complaints and joint aches and pains including some ankle/?calf swelling. He has had a recent period of immobility due to this. He does not report other episodes of fevers, chills, diaphoresis, nausea, vomiting, chest pain, trouble breathing, other numbness/tingling, dysuria, incontinence, dizziness, lightheadedness. However the patient does endorse several weeks of night sweats which are not normal for him. He was in his usual state of health yesterday but felt a popping sensation behind his left ear and then a headache ensued. He then had double vision in the middle the night and was stumbling around trying to get to the bathroom. The headache did wake him up from sleep. He noticed that he is having trouble with tracking in his right eye. His notes a left eye ptosis that is mild but definitely new. Patient did have some numbness in his fingertips and his lips which is now resolved. These symptoms have been evolving throughout the night. Hospital Course Echo with bubble study obtained and no bubbles crossing septae visualized; final read pending and can be followed up at Cardiology appt TSH, A1c, lipids are WNL but prediabetes is a new dx; counseled Given asa/plavix for 3 days and per neurology ([facility]), switched to apixaban on discharge Atorvastatin LE Doppler, both extremities was negative Lyme test was negative Patient will have PCP, Cards, Neuro follow-up On admission today patient noted that he had a history of paroxysmal A-fib. However on discharge he told me that his mother does not think he has this diagnosis. 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 He will either need dual antiplatelet or anticoagulation depending on whether or not he does have a diagnosis of atrial fibrillation. This is crucial given his hobby for mountain bike riding and his work as a [employer]. Telemetry was equivocal with perhaps some flutter waves the morning of discharge; this was not captured on EKG. I have printed out the alfred strips and we will get these to Dr. Crawford for review at his cardiology appointment coming up next week. He may need a prolonged monitor to ascertain a diagnosis of A-fib. 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 It will also help to get Dr. Sabillon from Neurology involved in the case as patient has a history of seizure disorder and with a new stroke diagnosis, her expertise will be greatly appreciated. Echo obtained and can be reviewed with Cardiology next week. Residual deficits include diplopia and gate instability due to this. His lateral rectus palsy on the left was nearly resolved and his right eye was tracking much better. If he closes an eye with a patch, his gait imbalance resolves. We reccomended outpatient OT for him. Patient did have an elevated CRP on admission and no cause of this was readily ascertained. This can be followed-up via PCP's office. Labs last 72 hours Test Results Units Reference Range Collected WBC 9.24 th/cmm L=5.00 H=10.00 03/15/2024 06:35 HEMOGLOBIN 12.3 L gm/dL L=13.0 H=17.0 03/15/2024 06:35 HEMATOCRIT 36 L % L=45 H=52 03/15/2024 06:35 PLATELET COUNT 234 th/cmm L=150 H=450 03/15/2024 06:35 GLUCOSE 107 mg/dL L=70 H=116 03/15/2024 06:35 BUN 15 mg/dL L=6 H=25 03/15/2024 06:35 CREATININE 1.04 mg/dL L=0.67 H=1.17 03/15/2024 06:35 SODIUM SERUM 135 L mmol/L L=136 H=145 03/15/2024 06:35 POTASSIUM SERUM 4.3 mmol/L L=3.4 H=5.2 03/15/2024 06:35 CHLORIDE SERUM 101 mmol/L L=96 H=110 03/15/2024 06:35 CARBON DIOXIDE (CO2) 29 mmol/L L=22 H=34 03/15/2024 06:35 ANION GAP 4.8 mmol/L 03/15/2024 06:35 CALCIUM SERUM 8.5 mg/dL L=8.2 H=10.2 03/15/2024 06:35 BILIRUBIN TOTAL 0.4 mg/dL L=0.0 H=1.3 03/15/2024 06:35 ALK. PHOS. 78 U/L L=46 H=116 03/15/2024 06:35 SGOT (AST) 18 U/L L=15 H=37 03/15/2024 06:35 SGPT (ALT) 21 U/L L=12 H=78 03/15/2024 06:35 TOTAL PROTEIN 6.6 gm/dL L=6.0 H=8.0 03/15/2024 06:35 ALBUMIN 2.9 L gm/dL L=3.4 H=5.0 03/15/2024 06:35 MAGNESIUM 1.9 mg/dL L=1.8 H=2.4 03/15/2024 06:35 CANNABINOIDS POSITIVE A POSITIVE Cutoff = 50 ng/mL 03/14/2024 12:06 PHENCYCLIDINE NEGATIVE NEGATIVE Cutoff = 25 ng/mL 03/14/2024 12:06 COCAINE NEGATIVE NEGATIVE Cutoff = 150 ng/mL 03/14/2024 12:06 METHAMPHETAMINES NEGATIVE NEGATIVE Cutoff = 500 ng/mL 03/14/2024 12:06 OPIATES NEGATIVE NEGATIVE Cutoff = 100 ng/mL 03/14/2024 12:06 AMPHETAMINES NEGATIVE NEGATIVE Cutoff = 500 ng/mL 03/14/2024 12:06 BENZODIAZEPINES NEGATIVE NEGATIVE Cutoff = 150 ng/mL 03/14/2024 12:06 TRICYCLIC ANTIDEP NEGATIVE NEGATIVE Cutoff = 300 ng/mL 03/14/2024 12:06 METHADONE NEGATIVE NEGATIVE Cutoff = 200 ng/mL 03/14/2024 12:06 BARBITURATES NEGATIVE NEGATIVE Cutoff = 200 ng/mL 03/14/2024 12:06 OXYCODONE NEGATIVE NEGATIVE Cutoff = 100 ng/mL 03/14/2024 12:06 BUPRENORPHINE NEGATIVE NEGATIVE Cutoff = 10 mg/mL 03/14/2024 12:06 EKG ORDER TRACING 12 LEAD 03/14/2024 10:49 CRP-HIGH SENS. 19.21 H mg/L L=0.00 H=3.00 03/14/2024 07:14 CRP-HIGH SENS 1.92 H mg/dL L=0.00 H=0.30 03/14/2024 07:14 WBC 10.53 H th/cmm L=5.00 H=10.00 03/14/2024 07:14 HEMOGLOBIN 11.6 L gm/dL L=13.0 H=17.0 03/14/2024 07:14 HEMATOCRIT 34 L % L=45 H=52 03/14/2024 07:14 PLATELET COUNT 263 th/cmm L=150 H=450 03/14/2024 07:14 GLUCOSE 119 H mg/dL L=70 H=116 03/14/2024 07:14 BUN 18 mg/dL L=6 H=25 03/14/2024 07:14 CREATININE 1.12 mg/dL L=0.67 H=1.17 03/14/2024 07:14 SODIUM SERUM 134 L mmol/L L=136 H=145 03/14/2024 07:14 POTASSIUM SERUM 4.0 mmol/L L=3.4 H=5.2 03/14/2024 07:14 CHLORIDE SERUM 99 mmol/L L=96 H=110 03/14/2024 07:14 CARBON DIOXIDE (CO2) 28 mmol/L L=22 H=34 03/14/2024 07:14 ANION GAP 6.9 mmol/L 03/14/2024 07:14 CALCIUM SERUM 8.3 mg/dL L=8.2 H=10.2 03/14/2024 07:14 BILIRUBIN TOTAL 0.4 mg/dL L=0.0 H=1.3 03/14/2024 07:14 ALK. PHOS. 79 U/L L=46 H=116 03/14/2024 07:14 SGOT (AST) 19 U/L L=15 H=37 03/14/2024 07:14 SGPT (ALT) 24 U/L L=12 H=78 03/14/2024 07:14 TOTAL PROTEIN 6.9 gm/dL L=6.0 H=8.0 03/14/2024 07:14 ALBUMIN 3.1 L gm/dL L=3.4 H=5.0 03/14/2024 07:14 Hgb A1c 5.8 H % L=3.8 H=5.7 03/14/2024 07:14 MEAN BLOOD GLUCOSE 107 mg/dL 03/14/2024 07:14 FASTING STATUS: NON FASTING NON FASTING 03/14/2024 07:14 CHOLESTEROL 129 mg/dL L=0 H=200 03/14/2024 07:14 TRIGLYCERIDES 36 L mg/dL L=56 H=318 03/14/2024 07:14 HDL 47 mg/dL L=27 H=67 03/14/2024 07:14 non-HDL-C 82 mg/dL L=0 H=160 03/14/2024 07:14 LDL (CALC) 75 mg/dL L=0 H=130 03/14/2024 07:14 Chol/HDL Ratio 2.7 L=0.0 H=4.9 03/14/2024 07:14 CHD Relative Risk 0.5 x Avg L=0.0 H=1.0 03/14/2024 07:14 LDL/HDL Ratio 1.6 L=0.0 H=3.5 03/14/2024 07:14 CHD Relative Risk. 0.5 x Avg L=0.0 H=1.0 03/14/2024 07:14 Lyme Antibody Negative Negative Negative 03/14/2024 07:14 SED. RATE 34 H mm/hr L=0 H=15 03/14/2024 07:14 TSH. 1.201 uIU/mL L=0.360 H=3.740 03/14/2024 07:14 Pertinent Imaging: FINDINGS: Head: No acute intracranial hemorrhage, mass effect or extra- axial collection. The moscoso-white differentiation appears maintained. Probable prominent perivascular space at the right basal ganglia. The ventricles are normal in caliber and the basilar cisterns are patent. Orbits appear unremarkable. The otomastoid spaces are clear. Opacification of a posterior right ethmoid air cell. Trace maxillary sinus mucosal thickening. CT angiogram neck and [place]: Mild apical lung scarring. Thyroid and major salivary glands appear normal. Symmetric prominence of the palatine tonsillar tissue. The brachiocephalic origin and proximal left common carotid artery is obscured by streak artifact from intravenous contrast. Visualized portions of the common carotid arteries demonstrate normal course and caliber. The internal carotid arteries are normal in course and caliber. The vertebral arteries are codominant and normal in course and caliber throughout. Probably normal basilar artery, with motion artifact at the apex creating pseudolesion in the proximal left CLERICAL ORDER FILLER. Apparent mild irregularity of the proximal left CLERICAL ORDER FILLER, possibly artifactual. Normal proximal superior cerebellar and right posterior cerebral arteries. The right and P1 CLERICAL ORDER FILLER segment is hypoplastic. IMPRESSION: No acute intracranial process. Normal CT angiogram neck. MRI FINDINGS: Focal area of restricted diffusion involves the right midbrain, just ventral to the cerebral aqueduct, extending to the margin of the right peduncle, and extending anteriorly to the inferior margin of the interpeduncular fossa. There are no abnormal blood products. Major intracranial flow voids are normal. No mass effect or shift. Craniocervical junction is normal. Skull base, and pituitary appear normal. IMPRESSION: 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 History and Physical Notes [facility] 03/14/2024 13:35 All Demographics Patient Name Age Sex Visit Number Admission Date/Time Attending Physician Date of Service Room and Bed Emergency Contact RYLAN CRANDALL 1980 44 years Male [id number] 03/14/2024 07:34 DEJAN CONDE 03/14/2024 4B ESME CRANDALL - [id number] Admission Date/Date of Service: 03/14/2024 13:02 CC/Reason for Admission: Stroke Attending Physician: Dr. Barrington [place] MD Primary Care Physician: CLYDE Baltazar History of Present Illness Chief Complaint: FACIAL NUMBNESS Patient is a 44-year-old man with a past medical history significant for severe aortic regurgitation being evaluated for surgery in [place] at the [facility], history of epilepsy on lamotrigine seen by neurology in [place]. He also has a history of paroxysmal A-fib and is not on anticoagulation. Patient was seen in the ED last week for constipation. He is otherwise had a series of musculoskeletal complaints and joint aches and pains including some ankle/?calf swelling. He has had a recent period of immobility due to this. He does not report other episodes of fevers, chills, diaphoresis, nausea, vomiting, chest pain, trouble breathing, other numbness/tingling, dysuria, incontinence, dizziness, lightheadedness. However the patient does endorse several weeks of night sweats which are not normal for him. He was in his usual state of health yesterday but felt a popping sensation behind his left ear and then a headache ensued. He then had double vision in the middle the night and was stumbling around trying to get to the bathroom. The headache did wake him up from sleep. He noticed that he is having trouble with tracking in his right eye. His notes a left eye ptosis that is mild but definitely new. Patient did have some numbness in his fingertips and his lips which is now resolved. These symptoms have been evolving throughout the night. Past Medical/Surgical/Family/Social History Past Medical History: See HPI above Past Surgical History: No surgeries in his past Past Family History: only knows half of his hx; no stroke, htn, diabetes that he knows of Past Social History: marijuana smoker; remote smoking hx in high school. Denies alcohol or drug use. Allergies: Allergy List No Known Allergies, Medication, Environment, Food Current Medications: Active Home Meds Medication Dosage Route Frequency Special Instructions LaMICtal 200MG Oral Tablet 200 MILLIGRAMS ORAL TWICE A DAY Previous Home Med Review of Systems 10 point review of systems performed and pertinent findings are in HPI above Physical Exam Date/Time BP (mm/Hg) Heart Rate Resp Temp (C) SPO2% O2 Device 03/14/2024 10:35 123/69 72 16 98 % GENERAL: NAD HEENT: AT/NC, PEERLA, Mucus membranes moist CHEST/LUNGS: Clear to auscultation bilaterally. No rales, rhonchi or wheezes. HEART: Regular rate and rhythm. No murmurs, rubs or gallop. ABDOMEN: Soft, non-distended, non-tender. Normal bowel sounds x4Q. EXTREMITIES: No cyanosis, edema. : No parikh present, No CVA tenderness NEUROLOGIC: Muscle strength is graded 5/5 in the upper and lower extremities bilaterally. Sensation to pain, touch intact. Gait is normal, on toes and on heels. No postural instability. No pronator drift. Negative Romberg. Downgoing Babinski. Finger- nose intact. Marmolejo to heel intact. No dysdiadochokinesia. No visual field defects. Peripheral vision is only compromised by seeing double when both eyes are open. He definitely has diplopia. His right eye pursuit is not smooth. However he does seem to have a strabismus in the left eye with some slight ptosis. PSYCHIATRIC: The patient is oriented x4. Mood and affect are appropriate. Pre-Admission Studies: Labs last 24 hours Test Results Units Reference Range Collected CANNABINOIDS POSITIVE A POSITIVE Cutoff = 50 ng/mL 03/14/2024 12:06 PHENCYCLIDINE NEGATIVE NEGATIVE Cutoff = 25 ng/mL 03/14/2024 12:06 COCAINE NEGATIVE NEGATIVE Cutoff = 150 ng/mL 03/14/2024 12:06 METHAMPHETAMINES NEGATIVE NEGATIVE Cutoff = 500 ng/mL 03/14/2024 12:06 OPIATES NEGATIVE NEGATIVE Cutoff = 100 ng/mL 03/14/2024 12:06 AMPHETAMINES NEGATIVE NEGATIVE Cutoff = 500 ng/mL 03/14/2024 12:06 BENZODIAZEPINES NEGATIVE NEGATIVE Cutoff = 150 ng/mL 03/14/2024 12:06 TRICYCLIC ANTIDEP NEGATIVE NEGATIVE Cutoff = 300 ng/mL 03/14/2024 12:06 METHADONE NEGATIVE NEGATIVE Cutoff = 200 ng/mL 03/14/2024 12:06 BARBITURATES NEGATIVE NEGATIVE Cutoff = 200 ng/mL 03/14/2024 12:06 OXYCODONE NEGATIVE NEGATIVE Cutoff = 100 ng/mL 03/14/2024 12:06 BUPRENORPHINE NEGATIVE NEGATIVE Cutoff = 10 mg/mL 03/14/2024 12:06 EKG ORDER TRACING 12 LEAD 03/14/2024 10:49 CRP-HIGH SENS. 19.21 H mg/L L=0.00 H=3.00 03/14/2024 07:14 CRP-HIGH SENS 1.92 H mg/dL L=0.00 H=0.30 03/14/2024 07:14 WBC 10.53 H th/cmm L=5.00 H=10.00 03/14/2024 07:14 HEMOGLOBIN 11.6 L gm/dL L=13.0 H=17.0 03/14/2024 07:14 HEMATOCRIT 34 L % L=45 H=52 03/14/2024 07:14 PLATELET COUNT 263 th/cmm L=150 H=450 03/14/2024 07:14 GLUCOSE 119 H mg/dL L=70 H=116 03/14/2024 07:14 BUN 18 mg/dL L=6 H=25 03/14/2024 07:14 CREATININE 1.12 mg/dL L=0.67 H=1.17 03/14/2024 07:14 SODIUM SERUM 134 L mmol/L L=136 H=145 03/14/2024 07:14 POTASSIUM SERUM 4.0 mmol/L L=3.4 H=5.2 03/14/2024 07:14 CHLORIDE SERUM 99 mmol/L L=96 H=110 03/14/2024 07:14 CARBON DIOXIDE (CO2) 28 mmol/L L=22 H=34 03/14/2024 07:14 ANION GAP 6.9 mmol/L 03/14/2024 07:14 CALCIUM SERUM 8.3 mg/dL L=8.2 H=10.2 03/14/2024 07:14 BILIRUBIN TOTAL 0.4 mg/dL L=0.0 H=1.3 03/14/2024 07:14 ALK. PHOS. 79 U/L L=46 H=116 03/14/2024 07:14 SGOT (AST) 19 U/L L=15 H=37 03/14/2024 07:14 SGPT (ALT) 24 U/L L=12 H=78 03/14/2024 07:14 TOTAL PROTEIN 6.9 gm/dL L=6.0 H=8.0 03/14/2024 07:14 ALBUMIN 3.1 L gm/dL L=3.4 H=5.0 03/14/2024 07:14 HEMOGLOBIN A1C* 03/14/2024 07:14 LIPID PANEL* 03/14/2024 07:14 LYME ANTIBODY SERUM (WITH REFLEX TO WB)* 03/14/2024 07:14 SED. RATE 34 H mm/hr L=0 H=15 03/14/2024 07:14 TSH. 1.201 uIU/mL L=0.360 H=3.740 03/14/2024 07:14 FINDINGS: Head: No acute intracranial hemorrhage, mass effect or extra-axial collection. The moscoso-white differentiation appears maintained. Probable prominent perivascular space at the right basal ganglia. The ventricles are normal in caliber and the basilar cisterns are patent. Orbits appear unremarkable. The otomastoid spaces are clear. Opacification of a posterior right ethmoid air cell. Trace maxillary sinus mucosal thickening. CT angiogram neck and [place]: Mild apical lung scarring. Thyroid and major salivary glands appear normal. Symmetric prominence of the palatine tonsillar tissue. The brachiocephalic origin and proximal left common carotid artery is obscured by streak artifact from intravenous contrast. Visualized portions of the common carotid arteries demonstrate normal course and caliber. The internal carotid arteries are normal in course and caliber. The vertebral arteries are codominant and normal in course and caliber throughout. Probably normal basilar artery, with motion artifact at the apex creating pseudolesion in the proximal left CLERICAL ORDER FILLER. Apparent mild irregularity of the proximal left CLERICAL ORDER FILLER, possibly artifactual. Normal proximal superior cerebellar and right posterior cerebral arteries. The right and P1 CLERICAL ORDER FILLER segment is hypoplastic. IMPRESSION: No acute intracranial process. Normal CT angiogram neck. FINDINGS: Focal area of restricted diffusion involves the right midbrain, just ventral to the cerebral aqueduct, extending to the margin of the right peduncle, and extending anteriorly to the inferior margin of the interpeduncular fossa. There are no abnormal blood products. Major intracranial flow voids are normal. No mass effect or shift. Craniocervical junction is normal. Skull base, and pituitary appear normal. IMPRESSION: 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 Assessment Problem List: No Problems Available 44 old gentleman who presents with strokelike symptoms. MRI is positive for stroke. CTA is negative. He has low risk factors for stroke given age, lack of hypertension, lack of smoking, lack of family history, history of cholesterol disease. However he does have paroxysmal A-fib and with recent immobility, could have an increased risk for a paradoxical stroke. It is also interesting that he has been having night sweats as of late and his CRP level is up--is this unrelated and a secondary finding? I question if this could be infection related; his symptoms are inconsistent with Kelly's palsy however. Plan Admit for observation MRI as above CT angio as above Echo with bubble study TSH, A1c, lipids are pending Monitor on telemetry Every 2 hours neurochecks I will reconnect with neurology for recommendations given new history elicited during interview of paroxysmal A-fib For now the recommended aspirin, Plavix to be loaded Continue aspirin, Plavix for 21 days and then aspirin alone I do believe patient is going to end up needing a DOAC at discharge LE Doppler, both extremities Follow-up Lyme study Patient admitted as observation as I anticipate them to be here less than 2 midnights. Code Status: Full DVT PPX: Asa/plavix; hold lovenox rediscussed with [facility] Neuro: DAPT for 3 days, start DOAC after that and discontinue DAPT. Add statin. Progress Notes [facility] 03/15/2024 11:58 03/15/2024, 11:53 SUBJECTIVE: Patient admitted yesterday for stroke. He is doing much better today. Diplopia is still present but improving. Gait has improved due to diplopia improving. He is wearing eye patch intermittently. No other symptoms. Allergy List No Known Allergies, Medication, Environment, Food OBJECTIVE: Vital Signs Most Recent Date/Time BP (mm/Hg) Heart Rate Resp Temp (C) SPO2% O2 Device 03/15/2024 07:04 123/65 62 16 36.5 TEMPORAL SCANNING 100 % Room Air 21% GENERAL: NAD HEENT: AT/NC, PEERLA, Mucus membranes moist CHEST/LUNGS: Clear to auscultation bilaterally. No rales, rhonchi or wheezes. HEART: Regular rate and rhythm. No murmurs, rubs or gallop. ABDOMEN: Soft, non-distended, non-tender. Normal bowel sounds x4Q. EXTREMITIES: No cyanosis, edema. : No parikh present, No CVA tenderness NEUROLOGIC: Muscle strength is graded 5/5 in the upper and lower extremities bilaterally. Sensation to pain, touch intact. Gait is normal, on toes and on heels. No postural instability. No pronator drift. Negative Romberg. Downgoing Babinski. Finger- nose intact. Marmolejo to heel intact. No dysdiadochokinesia. No visual field defects. Peripheral vision is only compromised by seeing double when both eyes are open. He definitely has diplopia. Pursuit improved in right eye and left eye lateral rectus paralysis has improved significantly. Left ptosis improved. Labs last 24 hours Test Results Units Reference Range Collected WBC 9.24 th/cmm L=5.00 H=10.00 03/15/2024 06:35 HEMOGLOBIN 12.3 L gm/dL L=13.0 H=17.0 03/15/2024 06:35 HEMATOCRIT 36 L % L=45 H=52 03/15/2024 06:35 PLATELET COUNT 234 th/cmm L=150 H=450 03/15/2024 06:35 GLUCOSE 107 mg/dL L=70 H=116 03/15/2024 06:35 BUN 15 mg/dL L=6 H=25 03/15/2024 06:35 CREATININE 1.04 mg/dL L=0.67 H=1.17 03/15/2024 06:35 SODIUM SERUM 135 L mmol/L L=136 H=145 03/15/2024 06:35 POTASSIUM SERUM 4.3 mmol/L L=3.4 H=5.2 03/15/2024 06:35 CHLORIDE SERUM 101 mmol/L L=96 H=110 03/15/2024 06:35 CARBON DIOXIDE (CO2) 29 mmol/L L=22 H=34 03/15/2024 06:35 ANION GAP 4.8 mmol/L 03/15/2024 06:35 CALCIUM SERUM 8.5 mg/dL L=8.2 H=10.2 03/15/2024 06:35 BILIRUBIN TOTAL 0.4 mg/dL L=0.0 H=1.3 03/15/2024 06:35 ALK. PHOS. 78 U/L L=46 H=116 03/15/2024 06:35 SGOT (AST) 18 U/L L=15 H=37 03/15/2024 06:35 SGPT (ALT) 21 U/L L=12 H=78 03/15/2024 06:35 TOTAL PROTEIN 6.6 gm/dL L=6.0 H=8.0 03/15/2024 06:35 ALBUMIN 2.9 L gm/dL L=3.4 H=5.0 03/15/2024 06:35 MAGNESIUM 1.9 mg/dL L=1.8 H=2.4 03/15/2024 06:35 CANNABINOIDS POSITIVE A POSITIVE Cutoff = 50 ng/mL 03/14/2024 12:06 PHENCYCLIDINE NEGATIVE NEGATIVE Cutoff = 25 ng/mL 03/14/2024 12:06 COCAINE NEGATIVE NEGATIVE Cutoff = 150 ng/mL 03/14/2024 12:06 METHAMPHETAMINES NEGATIVE NEGATIVE Cutoff = 500 ng/mL 03/14/2024 12:06 OPIATES NEGATIVE NEGATIVE Cutoff = 100 ng/mL 03/14/2024 12:06 AMPHETAMINES NEGATIVE NEGATIVE Cutoff = 500 ng/mL 03/14/2024 12:06 BENZODIAZEPINES NEGATIVE NEGATIVE Cutoff = 150 ng/mL 03/14/2024 12:06 TRICYCLIC ANTIDEP NEGATIVE NEGATIVE Cutoff = 300 ng/mL 03/14/2024 12:06 METHADONE NEGATIVE NEGATIVE Cutoff = 200 ng/mL 03/14/2024 12:06 BARBITURATES NEGATIVE NEGATIVE Cutoff = 200 ng/mL 03/14/2024 12:06 OXYCODONE NEGATIVE NEGATIVE Cutoff = 100 ng/mL 03/14/2024 12:06 BUPRENORPHINE NEGATIVE NEGATIVE Cutoff = 10 mg/mL 03/14/2024 12:06 ASSESSMENT/PLAN: Problem List Stroke 44 old gentleman who presents with stroke. MRI is positive for stroke. CTA is negative. He has low risk factors for stroke given age, lack of hypertension, lack of smoking, lack of family history, history of cholesterol disease. However he does have paroxysmal A-fib which is the most likely cause. Recent immobility could have an increased risk for a paradoxical stroke but LE doppler was negative. It is also interesting that he has been having night sweats as of late and his CRP level is up--is this unrelated and a secondary finding? I question if this could be infection related; his symptoms are inconsistent with Kelly's palsy however. Plan Echo with bubble study pending TSH, A1c, lipids are WNL but prediabetes is a new dx; counseled Monitor on telemetry Every 2 hours neuro checks asa/plavix for 3 days atorvastatin apixaban alone after that LE Doppler, both extremities was negative Follow-up Lyme study Code Status: full DVT PPX: ambulate
--- OUTSIDE RECORDS SUMMARY | 2024-06-12 19:06 | XMS_ITS ---
Author Organization Unknown Address [address] [place] [address] [phone] Phone Care Team Providers Care Dispatcher Ship Pilot Name Role Phone MICHELLE VIRK Attending Unavailable CLYDE Baltazar Primary Unavailable Social History Type Status Start Date End Date Code Code Syst em Smoking History Never smoker (Never Smoked) 387620353 SNOMED CT Sex Male Medications Medication Start Date End Date Route Frequency Dose Code Code System Medication Instructions Home Meds LaMICtal 200MG Oral Tablet 03/16/2024 05/31/2024 ORAL TWICE A DAY 200 MILLIGRAMS 523525 RxNorm TAKE 200 MILLIGRAMS ORAL TWICE A DAY Atorvastatin Calcium 40MG Oral Tablet 03/16/2024 Unknown ORAL BEDTIME 1 TABLET [id number] RxNorm TAKE 1 TABLET ORAL BEDTIME Aspirin 81MG Oral Tablet, Enteric Coated 03/16/2024 Unknown ORAL DAILY 1 TABLET [id number] RxNorm TAKE 1 TABLET ORAL DAILY Clopidogrel 75MG Oral Tablet 03/16/2024 05/31/2024 ORAL DAILY 1 TABLET [id number] RxNorm TAKE 1 TABLET ORAL DAILY Cephalexin 500MG Oral Capsule 03/29/2024 05/31/2024 ORAL FOUR TIMES A DAY 1 CAPSULE 014921 RxNorm TAKE 1 CAPSULE ORAL FOUR TIMES A DAY x 5 days cefTRIAXone 2GM Injection Powder for Solution 06/08/2024 Unknown IVPB Q24H 2 GRAM RxNorm 2 GRAM IVPB Q24H LORazepam 0.5 MG Oral Tablet 06/08/2024 Unknown ORAL NEEDED DAILY 0.5 MG RxNorm TAKE 0.5 MG ORAL NEEDED DAILY lamoTRIgine 200MG Oral Tablet 06/08/2024 Unknown ORAL TWICE A DAY 200 MILLIGRAMS 237458 RxNorm TAKE 200 MILLIGRAMS ORAL TWICE A [...] Date Status Code Code System STROKE active 981099936 SNOMED-CT AORTIC REGURGITATION active 91045385 SNOMED-CT MITRAL REGURGITATION active 93008924 SNOMED-CT BACTEREMIA active 0633477 SNOMED-CT INFECTIVE ENDOCARDITIS active 8075198 07 SNOMED-CT MITRAL REGURGITATION 05/31/2024 resolved 95918109 SNOMED-CT CVA 03/29/2024 resolved 195807737 SNOMED-CT AORTIC REGURGITATION 05/31/2024 resolved 24549907 SNOMED-CT SEIZURE DISORDER 03/08/2024 resolved 643040535 SN OMED-CT Allergies and Adverse Reactions Allergy Substance Reaction Severity Start Date Concern Status Co de Code System No Known Allergies Active 922960232 SNO MED-CT Plan of Treatment US DVT BILAT 05/24/2024 LAB DRAW 15MIN 04/11/2024 LAB DRAW 15MIN 07/07/2022 LAB DRAW 15MIN 04/13/2022 Encounters Encounter Diagnosis Start Date Code Code Sys tem Other sequelae of cerebral infarction 03/21/2024 SNOMED-CT Personal Care Team Section Performer Name Performer Role Active Date Inactive Da te
--- OUTSIDE RECORDS SUMMARY | 2024-06-12 19:06 | XMS_ITS ---
Author Organization Unknown Address [address] [place] [address] [phone] Phone Care Team Providers Care Human Resources Office Assistant Name Role Phone FRANCOISE Baltazar Attending Unavailable CLYDE Baltazar Primary Unavailable Social History Type Status Start Date End Date Code Code Syst em Smoking History Never smoker (Never Smoked) 599417221 SNOMED CT Sex Male Medications Medication Start Date End Date Route Frequency Dose Code Code System Medication Instructions Home Meds LaMICtal 200MG Oral Tablet 03/16/2024 05/31/2024 ORAL TWICE A DAY 200 MILLIGRAMS 250410 RxNorm TAKE 200 MILLIGRAMS ORAL TWICE A DAY Atorvastatin Calcium 40MG Oral Tablet 03/16/2024 Unknown ORAL BEDTIME 1 TABLET 846382 RxNorm TAKE 1 TABLET ORAL BEDTIME Aspirin 81MG Oral Tablet, Enteric Coated 03/16/2024 Unknown ORAL DAILY 1 TABLET 506171 RxNorm TAKE 1 TABLET ORAL DAILY Clopidogrel 75MG Oral Tablet 03/16/2024 05/31/2024 ORAL DAILY 1 TABLET 442390 RxNorm TAKE 1 TABLET ORAL DAILY Cephalexin 500MG Oral Capsule 03/29/2024 05/31/2024 ORAL FOUR TIMES A DAY 1 CAPSULE 785744 RxNorm TAKE 1 CAPSULE ORAL FOUR TIMES A DAY x 5 days cefTRIAXone 2GM Injection Powder for Solution 06/08/2024 Unknown IVPB Q24H 2 GRAM RxNorm 2 GRAM IVPB Q24H LORazepam 0.5 MG Oral Tablet 06/08/2024 Unknown ORAL NEEDED DAILY 0.5 MG RxNorm TAKE 0.5 MG ORAL NEEDED DAILY lamoTRIgine 200MG Oral Tablet 06/08/2024 Unknown ORAL TWICE A DAY 200 MILLIGRAMS 274312 RxNorm TAKE 200 MILLIGRAMS ORAL TWICE A [...] Date Status Code Code System STROKE active 783530908 SNOMED-CT AORTIC REGURGITATION active 54515523 SNOMED-CT MITRAL REGURGITATION active 98814921 SNOMED-CT BACTEREMIA active 2571745 SNOMED-CT INFECTIVE ENDOCARDITIS active 3125613 07 SNOMED-CT MITRAL REGURGITATION 05/31/2024 resolved 95089968 SNOMED-CT CVA 03/29/2024 resolved 163797201 SNOMED-CT AORTIC REGURGITATION 05/31/2024 resolved 44877220 SNOMED-CT SEIZURE DISORDER 03/08/2024 resolved 683209894 SN OMED-CT Allergies and Adverse Reactions Allergy Substance Reaction Severity Start Date Concern Status Co de Code System No Known Allergies Active 990604291 SNO MED-CT Plan of Treatment US DVT BILAT 05/24/2024 LAB DRAW 15MIN 04/11/2024 LAB DRAW 15MIN 07/07/2022 LAB DRAW 15MIN 04/13/2022 Encounters Encounter Diagnosis Start Date Code Code Sys tem Cerebral infarction 03/24/2024 554316145 SNOMED-C T Personal Care Team Section Performer Name Performer Role Active Date Inactive Da te
--- OUTSIDE RECORDS SUMMARY | 2024-06-12 19:06 | XMS_ITS ---
Author Organization Unknown Address [address] [place] [address] [phone] Phone Care Team Providers Care Compress Trucker Name Role Phone HESHAM MELLO Registered Nurse Unavailable AYDEE Downey Attending Unavailable BRUNO Burt [facility] Unavailable CLYDE Baltazar Primary Unavailable UNLISTED PROVIDER - REQUESTED Xhandoff Un available Results XR FOOT 3V RT* - Completed: 03/29/2024 17:50 LOINC: [facility] RADIOLOGY [place], [place] [address] RADIOLOGY FHA UNDERWRITER REPORT Patient Name: RYLAN CRANDALL MRN: Sex: : Age: [id number] M 1980 44 Account: Accession: Admit: StayType: [id number] 03/29/2024 E Ordered: Order ID: Submitted: Ordering Provider: 03/29/2024 17:42 [id number] ABBIE HARRISON Completed: Technologist: Resulted: 03/29/2024 17:47 KXM 03/29/2024 18:07 EXAMINATION: XR FOOT 3V RT CLINICAL HISTORY: Reason for Extrem: Pain Add'l Info: swelling TECHNIQUE: 3 views RIGHT foot COMPARISON: None FINDINGS: No fracture or dislocation is detected. The bone mineralization is normal. The soft tissues are unremarkable. IMPRESSION: Unremarkable right foot x-rays. Thank you for letting us participate in the care of this patient. If you are a health care provider and have any questions regarding this report, please contact the number below. For patients who have questions please contact the health nursing care attendant that requested your imaging first. Electronically signed by: GERMAN VEGA MD [facility] ([phone]), at 03/29/2024 6:07 PM Social History Type Status Start Date End Date Code Code Syst em Smoking History Never smoker (Never Smoked) 105816070 SNOMED CT Sex Male Vital Signs Vital Sign Value Unit [place] Value [place] Unit Date/Time Recent/Initial? Code Code System Body Mass Index 19.24 kg/m2 03/29/2024 17:09 Initial 17941 -5 [facility] Systolic Blood Pressure 136 mm[Hg] 03/29/2024 17:09 Initial 8480- 6 [facility] Diastolic Blood Pressure 87 mm[Hg] 03/29/2024 17:09 Initial 8462- 4 [facility] Body Surface Area 2.20 m2 03/29/2024 17:09 Initial 3140- 1 LOINC Height 208.280 0 cm 82.00 in 03/29/2024 17:09 Initial 8302- 2 [facility] O2 Saturation 100 % 2023 17:09 Initial 87330 -5 [facility] Pulse 88.0 /min 03/29/2024 17:09 Initial 8867- 4 [facility] Temperature 36.3 Roxi 97.3 F 03/29/20 17:09 Initial 8310- 5 [facility] Weight 83.46 kg 184.00 lbs 03/29/2024 17:09 Initial 96479 -7 [facility] Medications Medication Start Date End Date Route Frequency Dose Code Code System Medication Instructions Home Meds LaMICtal 200MG Oral Tablet 03/16/2024 05/31/2024 ORAL TWICE A DAY 200 MILLIGRAMS 149024 RxNorm TAKE 200 MILLIGRAMS ORAL TWICE A DAY Atorvastatin Calcium 40MG Oral Tablet 03/16/2024 Unknown ORAL BEDTIME 1 TABLET 590451 RxNorm TAKE 1 TABLET ORAL BEDTIME Aspirin 81MG Oral Tablet, Enteric Coated 03/16/2024 Unknown ORAL DAILY 1 TABLET 396387 RxNorm TAKE 1 TABLET ORAL DAILY Clopidogrel 75MG Oral Tablet 03/16/2024 05/31/2024 ORAL DAILY 1 TABLET 995434 RxNorm TAKE 1 TABLET ORAL DAILY Cephalexin 500MG Oral Capsule 03/29/2024 05/31/2024 ORAL FOUR TIMES A DAY 1 CAPSULE 399974 RxNorm TAKE 1 CAPSULE ORAL FOUR TIMES [...] Date Status Code Code System STROKE active 998966447 SNOMED-CT AORTIC REGURGITATION active 63694965 SNOMED-CT MITRAL REGURGITATION active 93612502 SNOMED-CT BACTEREMIA active 8858133 SNOMED-CT INFECTIVE ENDOCARDITIS active 6878501 07 SNOMED-CT MITRAL REGURGITATION 05/31/2024 resolved 02831081 SNOMED-CT CVA 03/29/2024 resolved 721959157 SNOMED-CT AORTIC REGURGITATION 05/31/2024 resolved 29409222 SNOMED-CT SEIZURE DISORDER 03/08/2024 resolved 386774143 SN OMED-CT Allergies and Adverse Reactions Allergy Substance Reaction Severity Start Date Concern Status Co de Code System No Known Allergies Active 272986787 SNO MED-CT Plan of Treatment US DVT BILAT 05/24/2024 LAB DRAW 15MIN 04/11/2024 LAB DRAW 15MIN 07/07/2022 LAB DRAW 15MIN 04/13/2022 Encounters Encounter Diagnosis Start Date Code Code Sys tem Cellulitis of right lower limb 03/29/2024 SNOMED-CT Personal Care Team Section Performer Name Performer Role Active Date Inactive Da te
--- OUTSIDE RECORDS SUMMARY | 2024-06-12 19:07 | XMS_ITS ---
Author Organization Unknown Address [address] [place] [address] [phone] Phone Care Team Providers Care Mirror Installer Name Role Phone FRANCOISE Baltazar Attending Unavailable CLYDE Baltazar Primary Unavailable Social History Type Status Start Date End Date Code Code Syst em Smoking History Never smoker (Never Smoked) 310498513 SNOMED CT Sex Male Medications Medication Start Date End Date Route Frequency Dose Code Code System Medication Instructions Home Meds LaMICtal 200MG Oral Tablet 03/16/2024 05/31/2024 ORAL TWICE A DAY 200 MILLIGRAMS 322760 RxNorm TAKE 200 MILLIGRAMS ORAL TWICE A DAY Atorvastatin Calcium 40MG Oral Tablet 03/16/2024 Unknown ORAL BEDTIME 1 TABLET 491489 RxNorm TAKE 1 TABLET ORAL BEDTIME Aspirin 81MG Oral Tablet, Enteric Coated 03/16/2024 Unknown ORAL DAILY 1 TABLET 677722 RxNorm TAKE 1 TABLET ORAL DAILY Clopidogrel 75MG Oral Tablet 03/16/2024 05/31/2024 ORAL DAILY 1 TABLET 882376 RxNorm TAKE 1 TABLET ORAL DAILY Cephalexin 500MG Oral Capsule 03/29/2024 05/31/2024 ORAL FOUR TIMES A DAY 1 CAPSULE 494667 RxNorm TAKE 1 CAPSULE ORAL FOUR TIMES A DAY x 5 days cefTRIAXone 2GM Injection Powder for Solution 06/08/2024 Unknown IVPB Q24H 2 GRAM RxNorm 2 GRAM IVPB Q24H LORazepam 0.5 MG Oral Tablet 06/08/2024 Unknown ORAL NEEDED DAILY 0.5 MG RxNorm TAKE 0.5 MG ORAL NEEDED DAILY lamoTRIgine 200MG Oral Tablet 06/08/2024 Unknown ORAL TWICE A DAY 200 MILLIGRAMS 520481 RxNorm TAKE 200 MILLIGRAMS ORAL TWICE A [...] Date Status Code Code System STROKE active 391074991 SNOMED-CT AORTIC REGURGITATION active 20686742 SNOMED-CT MITRAL REGURGITATION active 59295301 SNOMED-CT BACTEREMIA active 7516435 SNOMED-CT INFECTIVE ENDOCARDITIS active 7919825 07 SNOMED-CT MITRAL REGURGITATION 05/31/2024 resolved 74766458 SNOMED-CT CVA 03/29/2024 resolved 527231838 SNOMED-CT AORTIC REGURGITATION 05/31/2024 resolved 41303385 SNOMED-CT SEIZURE DISORDER 03/08/2024 resolved 613079255 SN OMED-CT Allergies and Adverse Reactions Allergy Substance Reaction Severity Start Date Concern Status Co de Code System No Known Allergies Active 764923423 SNO MED-CT Plan of Treatment US DVT BILAT 05/24/2024 LAB DRAW 15MIN 04/11/2024 LAB DRAW 15MIN 07/07/2022 LAB DRAW 15MIN 04/13/2022 Encounters Encounter Diagnosis Start Date Code Code Sys tem Supraventricular tachycardia 04/28/2024 5386391 SNOMED-CT Personal Care Team Section Performer Name Performer Role Active Date Inactive Da te
--- OUTSIDE RECORDS SUMMARY | 2024-06-12 19:07 | XMS_ITS ---
Author Organization Unknown Address [address] [place] [address] [phone] Phone Care Team Providers Care Machine Ceramic Coater Name Role Phone FRANCOISE Baltazar Attending Unavailable CLYDE Baltazar Primary Unavailable Results CBC W/ DIFFERENTIAL* - Colle ct Date/Time: 04/11/2024 12:39 [facility] ID: [id number] [address] [place], [place], [address] LOINC: 23770-3 Test Value Unit Reference Range Code Code System Flag WBC 8.93 th/cmm L=5.00 H=10.00 6690-2 LOINC NEUT % 79.2 % L=40.0 H=80.0 LYMPH % 15.0 % L=10.0 H=50.0 MONO % 4.9 % L=2.0 H=12.0 31489-2 LOINC EOS % 0.2 % L=0.0 H=8.0 BASO % 0.4 % L=0.0 H=3.0 IG % 0.3 % L=0.0 H=1.1 2514-8 LOINC NRBC % 0.0 % L=0.0 H=0.0 77926-8 LOINC NEUT abs count 7.1 th/cmm L=1.6 H=8.4 751-8 LOINC LYMPH abs count 1.3 th/cmm L=1.5 H=4.0 731-0 LOINC L MONO abs count 0.4 th/cmm L=0.2 H=1.0 742-7 LOINC EOS abs count 0.0 th/cmm L=0.0 H=0.5 711-2 LOINC BASO abs count 0.0 th/cmm L=0.0 H=0.2 704-7 LOINC IG abs count 0.0 th/cmm L=0.0 H=0.1 38857-5 LOINC NRBC abs count 0.0 mil/cmm L=0.0 H=0.0 79520-7 LOINC RBC 4.36 mil/cmm L=4.30 H=6.20 789-8 LOINC HEMOGLOBIN 12.7 gm/dL L=13.0 H=17.0 718-7 LOINC L HEMATOCRIT 39 % L=45 H=52 4544-3 LOINC L MCV 90 fL L=82 H=92 787-2 LOINC MCH 29.1 pg L=27.0 H=31.0 785-6 LOINC MCHC 32.5 % L=32.0 H=36.0 786-4 LOINC RDW-SD 42.8 fL L=39.0 H=49.0 788-0 LOINC PLATELET COUNT 262 th/cmm L=150 H=450 777-3 LOINC CCP ANTIBODY* - Collect Date /Time: 04/11/2024 12:39 [facility] ID: [id number] [address] [place] [address], [id number] LOINC: 26694-7 Test Value Unit Reference Range Code Code System Flag Cyclic CitrullinatedPeptide Ab <2.5 <5.0 RHEUMATOID FACTOR SERUM (RA) QUANT* - Collect Date/Time: 04/11/2024 12:39 [facility] ID: [id number] [address] [place] [address], [phone] LOINC: 6928-6 Test Value Unit Reference Range Code Code System Flag Rheumatoid Factor <8.6 <12.0 MARISOL ANTI NUCLEAR ANTIBODIES* - Collect Date/Time: 04/11/2024 12:39 [facility] ID: [id number] [address] [place] [address], [phone] LOINC: 28753-4 Test Value Unit Reference Range Code Code System Flag MARISOL Interpretation Negative Negative BETA 2 GLYCOPROTEIN 1 ANTIBO DY PANEL* - Collect Date/Time: 04/11/2024 12:39 [facility] ID: [id number] - [id number] [address] [place], [place], [id number] LOINC: 44565-4 Test Value Unit Reference Range Code Code System Flag Beta 2 GP1 Ab IgG, S <9.4 70986-3 LOINC Beta 2 GP1 Ab IgM, S < 9.4 [facility] 08549-9 LOINC Social History Type Status Start Date End Date Code Code Syst em Smoking History Never smoker (Never Smoked) 088364008 SNOMED CT Sex Male Medications Medication Start Date End Date Route Frequency Dose Code Code System Medication Instructions Home Meds LaMICtal 200MG Oral Tablet 03/16/2024 05/31/2024 ORAL TWICE A DAY 200 MILLIGRAMS 317871 RxNorm TAKE 200 MILLIGRAMS ORAL TWICE A DAY Atorvastatin Calcium 40MG Oral Tablet 03/16/2024 Unknown ORAL BEDTIME 1 TABLET 706852 RxNorm TAKE 1 TABLET ORAL BEDTIME Aspirin 81MG Oral Tablet, Enteric Coated 03/16/2024 Unknown ORAL DAILY 1 TABLET 469540 RxNorm TAKE 1 TABLET ORAL DAILY Clopidogrel 75MG Oral Tablet 03/16/2024 05/31/2024 ORAL DAILY 1 TABLET 041548 RxNorm TAKE 1 TABLET ORAL DAILY Cephalexin 500MG Oral Capsule 03/29/2024 05/31/2024 ORAL FOUR TIMES A DAY 1 CAPSULE 795900 RxNorm TAKE 1 CAPSULE ORAL FOUR TIMES A DAY x 5 days cefTRIAXone 2GM Injection Powder for Solution 06/08/2024 Unknown IVPB Q24H 2 GRAM RxNorm 2 GRAM IVPB Q24H LORazepam 0.5 MG Oral Tablet 06/08/2024 Unknown ORAL NEEDED DAILY 0.5 MG RxNorm TAKE 0.5 MG ORAL NEEDED DAILY lamoTRIgine 200MG Oral Tablet 06/08/2024 Unknown ORAL TWICE A DAY 200 MILLIGRAMS 887147 RxNorm TAKE 200 MILLIGRAMS ORAL TWICE A [...] Date Status Code Code System STROKE active 537832846 SNOMED-CT AORTIC REGURGITATION active 31797851 SNOMED-CT MITRAL REGURGITATION active 42807624 SNOMED-CT BACTEREMIA active 1047995 SNOMED-CT INFECTIVE ENDOCARDITIS active 6331356 07 SNOMED-CT MITRAL REGURGITATION 05/31/2024 resolved 06481040 SNOMED-CT CVA 03/29/2024 resolved 501560232 SNOMED-CT AORTIC REGURGITATION 05/31/2024 resolved 35112458 SNOMED-CT SEIZURE DISORDER 03/08/2024 resolved 776870768 SN OMED-CT Allergies and Adverse Reactions Allergy Substance Reaction Severity Start Date Concern Status Co de Code System No Known Allergies Active 796289074 SNO MED-CT Plan of Treatment US DVT BILAT 05/24/2024 LAB DRAW 15MIN 04/11/2024 LAB DRAW 15MIN 07/07/2022 LAB DRAW 15MIN 04/13/2022 Encounters Encounter Diagnosis Start Date Code Code Sys tem Endocarditis, valve unspecified 04/11/2024 SNOMED-CT Personal Care Team Section Performer Name Performer Role Active Date Inactive Da te
--- OUTSIDE RECORDS SUMMARY | 2024-06-12 19:08 | XMS_ITS ---
Author Organization Unknown Address [address] [place] [address] [phone] Phone Care Team Providers Care Account Executive Trainee Name Role Phone ERIN WILD [facility] Attending Unavailable CLYDE Baltazar Primary Unavailable Results US DVT BILATERAL - Completed : 05/24/2024 08:34 LOINC: RADIOLOGY [place], [place] [address] RADIOLOGY INTERLOCKING AND SIGNAL MECHANIC REPORT Patient Name: RYLAN CRANDALL MRN: Sex: : Age: [id number] M 1980 44 Account: Accession: Admit: StayType: [id number] 05/24/2024 O Ordered: Order ID: Submitted: Ordering Provider: 05/24/2024 08:04 [id number] RANDY RHOADES Completed: Technologist: Resulted: 05/24/2024 08:14 BM 05/24/2024 11:37 Peripheral Venous Duplex (Signed Final 05/24/2024 11:37 am) PATIENT INFO: ID #: [id number] : [birth year] (44 yrs)(M) Name: RYLAN CRANDALL Visit Date:05/24/2024 10:55 am PERFORMED BY: Attending: Narciso Jane MD Performed By: Yair FITZGERALD, RVT, RTRamandeep Referred By: RANDY PALACIOS Location: [facility] SERVICE(S) PROVIDED: USDVT2 - DVT Lower Extremity Complete Bilateral - [id number] INDICATIONS: Reason US Extremity: Swelling Add'l Info: TECHNIQUE/SCAN QUALITY: Technique: [place]o scale, color and [...] Yes Yes Yes PTV: No Yes Yes Yes GSV: No Yes Yes LEFT Vein Thrombu Compress Spontaneous Augment s Phasic CFV: No Yes Yes Yes FV Junc: No Yes Yes Yes PFV: No Yes Yes Yes FV Prox: No Yes Yes Yes FV Mid: No Yes Yes Yes FV Dist: No Yes Yes Yes Pop: No Yes Yes Yes PTV: No Yes GSV: No Yes Yes IMPRESSION: Normal bilateral lower extremity duplex venous Doppler sonogram. Electronically signed by: Narciso Jane MD Radiology [place] Thank you for letting us participate in the care of this patient. If you are a health care provider and have any questions regarding this report, please contact the number above. For patients who have questions, please contact the health medical care manager that requested your imaging first. Narciso Jane, Staff Physician Electronically Signed Final Report 05/24/2024 11:37 am 05/24/24.1138.[facility].to CLYDE LA via fax Social History Type Status Start Date End Date Code Code Syst em Smoking History Never smoker (Never Smoked) 893634539 SNOMED CT Sex Male Medications Medication Start Date End Date Route Frequency Dose Code Code System Medication Instructions Home Meds LaMICtal 200MG Oral Tablet 03/16/2024 05/31/2024 ORAL TWICE A DAY 200 MILLIGRAMS 194290 RxNorm TAKE 200 MILLIGRAMS ORAL TWICE A DAY Atorvastatin Calcium 40MG Oral Tablet 03/16/2024 Unknown ORAL BEDTIME 1 TABLET 546283 RxNorm TAKE 1 TABLET ORAL BEDTIME Aspirin 81MG Oral Tablet, Enteric Coated 03/16/2024 Unknown ORAL DAILY 1 TABLET 721114 RxNorm TAKE 1 TABLET ORAL DAILY Clopidogrel 75MG Oral Tablet 03/16/2024 05/31/2024 ORAL DAILY 1 TABLET 373875 RxNorm TAKE 1 TABLET ORAL DAILY Cephalexin 500MG Oral Capsule 03/29/2024 05/31/2024 ORAL FOUR TIMES A DAY 1 CAPSULE 546222 RxNorm TAKE 1 CAPSULE ORAL FOUR TIMES [...] Date Status Code Code System STROKE active 355364755 SNOMED-CT AORTIC REGURGITATION active 04530994 SNOMED-CT MITRAL REGURGITATION active 44455999 SNOMED-CT BACTEREMIA active 0443442 SNOMED-CT INFECTIVE ENDOCARDITIS active 1774879 07 SNOMED-CT MITRAL REGURGITATION 05/31/2024 resolved 84018334 SNOMED-CT CVA 03/29/2024 resolved 011013806 SNOMED-CT AORTIC REGURGITATION 05/31/2024 resolved 58704117 SNOMED-CT SEIZURE DISORDER 03/08/2024 resolved 913306156 SN OMED-CT Allergies and Adverse Reactions Allergy Substance Reaction Severity Start Date Concern Status Co de Code System No Known Allergies Active 421228708 SNO MED-CT Plan of Treatment US DVT BILAT 05/24/2024 LAB DRAW 15MIN 04/11/2024 LAB DRAW 15MIN 07/07/2022 LAB DRAW 15MIN 04/13/2022 Encounters Encounter Diagnosis Start Date Code Code Sys tem Pain in leg, unspecified 05/24/2024 SNO MED-CT Personal Care Team Section Performer Name Performer Role Active Date Inactive Da te
--- OUTSIDE RECORDS SUMMARY | 2024-06-12 19:08 | XMS_ITS ---
Author Organization Unknown Address [address] [place] [address] [phone] Phone Care Team Providers Care Pipe Organ Mechanic Apprentice Name Role Phone FRANCOISE Baltazar Attending Unavailable CLYDE Baltazar Primary Unavailable Social History Type Status Start Date End Date Code Code Syst em Smoking History Never smoker (Never Smoked) 047909397 SNOMED CT Sex Male Medications Medication Start Date End Date Route Frequency Dose Code Code System Medication Instructions Home Meds LaMICtal 200MG Oral Tablet 03/16/2024 05/31/2024 ORAL TWICE A DAY 200 MILLIGRAMS 635974 RxNorm TAKE 200 MILLIGRAMS ORAL TWICE A DAY Atorvastatin Calcium 40MG Oral Tablet 03/16/2024 Unknown ORAL BEDTIME 1 TABLET 876741 RxNorm TAKE 1 TABLET ORAL BEDTIME Aspirin 81MG Oral Tablet, Enteric Coated 03/16/2024 Unknown ORAL DAILY 1 TABLET 698912 RxNorm TAKE 1 TABLET ORAL DAILY Clopidogrel 75MG Oral Tablet 03/16/2024 05/31/2024 ORAL DAILY 1 TABLET 094995 RxNorm TAKE 1 TABLET ORAL DAILY Cephalexin 500MG Oral Capsule 03/29/2024 05/31/2024 ORAL FOUR TIMES A DAY 1 CAPSULE 858349 RxNorm TAKE 1 CAPSULE ORAL FOUR TIMES A DAY x 5 days cefTRIAXone 2GM Injection Powder for Solution 06/08/2024 Unknown IVPB Q24H 2 GRAM RxNorm 2 GRAM IVPB Q24H LORazepam 0.5 MG Oral Tablet 06/08/2024 Unknown ORAL NEEDED DAILY 0.5 MG RxNorm TAKE 0.5 MG ORAL NEEDED DAILY lamoTRIgine 200MG Oral Tablet 06/08/2024 Unknown ORAL TWICE A DAY 200 MILLIGRAMS 796862 RxNorm TAKE 200 MILLIGRAMS ORAL TWICE A [...] Date Status Code Code System STROKE active 623864829 SNOMED-CT AORTIC REGURGITATION active 07893342 SNOMED-CT MITRAL REGURGITATION active 37550048 SNOMED-CT BACTEREMIA active 6483355 SNOMED-CT INFECTIVE ENDOCARDITIS active 4412974 07 SNOMED-CT MITRAL REGURGITATION 05/31/2024 resolved 25040099 SNOMED-CT CVA 03/29/2024 resolved 280417975 SNOMED-CT AORTIC REGURGITATION 05/31/2024 resolved 67679183 SNOMED-CT SEIZURE DISORDER 03/08/2024 resolved 448439080 SN OMED-CT Allergies and Adverse Reactions Allergy Substance Reaction Severity Start Date Concern Status Co de Code System No Known Allergies Active 411694713 SNO MED-CT Plan of Treatment US DVT BILAT 05/24/2024 LAB DRAW 15MIN 04/11/2024 LAB DRAW 15MIN 07/07/2022 LAB DRAW 15MIN 04/13/2022 Encounters Encounter Diagnosis Start Date Code Code Sys tem Cerebral infarction 04/17/2024 169735644 SNOMED-C T Personal Care Team Section Performer Name Performer Role Active Date Inactive Da te
--- OUTSIDE RECORDS SUMMARY | 2024-06-12 19:08 | XMS_ITS ---
Author Organization Unknown Address [address] [place] [address] [phone] Phone Care Team Providers Care Drawer Waxer Name Role Phone ZAC Burt Attending Unavailable CLYDE Baltazar Primary Unavailable Results FERRITIN - Collect Date/Time : 05/22/2024 12:41 [facility] ID: [id number] [address] [place] [address], [address] LOINC: 2276-4 Test Value Unit Reference Range Code Code System Flag FERRITIN 134.00 ng/mL L=17.90 H=464 2276-4 LOINC TSH THYROID STIMULATING HORM ONE* - Collect Date/Time: 05/22/2024 12:41 [facility] ID: [id number] [address] [place] [address], [address] LOINC: 3014-8 Test Value Unit Reference Range Code Code System Flag TSH 0.927 uIU/mL L=0.465 H=4.680 3014-8 LOINC TRANSFERRIN SATURATION* - Co llect Date/Time: 05/22/2024 12:41 [facility] ID: [id number] [address] [place] [address], [address] LOINC: 2502-3 Test Value Unit Reference Range Code Code System Flag IRON 38 ug/dL L=49 H=181 2498-4 LOINC L IBC 246 ug/dL L=261 H=462 2500-7 LOINC L TRANSFERRIN SAT. 15.4 % 2502-3 LOINC FREE THYROXINE (FREE T4)* - Collect Date/Time: 05/22/2024 12:41 [facility] ID: [id number] [address] [place], [place], [address] LOINC: 3024-7 Test Value Unit Reference Range Code Code System Flag FREE THYROXINE 1.36 ng/dL L=0.78 H=2.19 3024-7 LOINC COMPREHENSIVE METABOLIC PANE L (CMP) - Collect Date/Time: 05/22/2024 12:41 [facility] ID: [id number] [address] [place], [place], [address] LOINC: 10543-3 Test Value Unit Reference Range Code Code System Flag GLUCOSE 99 mg/dL L=70 H=116 2345-7 LOINC BUN 17 mg/dL L=9 H=20 3094-0 LOINC CREATININE 0.95 mg/dL L=0.60 H=1.25 2160-0 LOINC SODIUM SERUM 140 mmol/L L=136 H=145 2951-2 LOINC POTASSIUM SERUM 3.9 mmol/L L=3.4 H=5.2 2823-3 LOINC CHLORIDE SERUM 106 mmol/L L=98 H=107 2075-0 LOINC CARBON DIOXIDE (CO2) 28 mmol/L L=22 H=30 2028-9 LOINC ANION GAP 5.9 mmol/L 80824-0 LOINC CALCIUM SERUM 8.5 mg/dL L=8.4 H=10.2 90120-0 LOINC BILIRUBIN TOTAL < 0.1 mg/dL L=0.2 H=1.3 1975-2 LOINC L ALK. PHOS. 73 U/L L=38 H=126 6768-6 LOINC SGOT (AST) 30 U/L L=17 H=59 1920-8 LOINC SGPT (ALT) 27 U/L L=4 H=50 1742-6 LOINC TOTAL PROTEIN 7.0 gm/dL L=6.0 H=8.0 2885-2 LOINC ALBUMIN 3.9 gm/dL L=3.4 H=5.0 1751-7 LOINC AGE 44 years eGFR (non-Afr.Amer.) 86 mL/min 42688-4 LOINC eGFR (Afr-Martiniquais) 104 mL/min 36823-4 LOINC CBC W/ DIFFERENTIAL* - Colle ct Date/Time: 05/22/2024 12:41 [facility] ID: [id number] [address] [place], [place], [address] LOINC: 39150-6 Test Value Unit Reference Range Code Code System Flag WBC 9.78 th/cmm L=5.00 H=10.00 6690-2 LOINC NEUT % 73.3 % L=40.0 H=80.0 LYMPH % 17.9 % L=10.0 H=50.0 MONO % 7.4 % L=2.0 H=12.0 91132-8 LOINC EOS % 0.7 % L=0.0 H=8.0 BASO % 0.4 % L=0.0 H=3.0 IG % 0.3 % L=0.0 H=1.1 2514-8 LOINC NRBC % 0.0 % L=0.0 H=0.0 28443-4 LOINC NEUT abs count 7.2 th/cmm L=1.6 H=8.4 751-8 LOINC LYMPH abs count 1.8 th/cmm L=1.5 H=4.0 731-0 LOINC MONO abs count 0.7 th/cmm L=0.2 H=1.0 742-7 LOINC EOS abs count 0.1 th/cmm L=0.0 H=0.5 711-2 LOINC BASO abs count 0.0 th/cmm L=0.0 H=0.2 704-7 LOINC IG abs count 0.0 th/cmm L=0.0 H=0.1 13398-9 LOINC NRBC abs count 0.0 mil/cmm L=0.0 H=0.0 90561-7 LOINC RBC 3.99 mil/cmm L=4.30 H=6.20 789-8 LOINC L HEMOGLOBIN 11.6 gm/dL L=13.0 H=17.0 718-7 LOINC L HEMATOCRIT 35 % L=45 H=52 4544-3 LOINC L MCV 89 fL L=82 H=92 787-2 LOINC MCH 29.1 pg L=27.0 H=31.0 785-6 LOINC MCHC 32.9 % L=32.0 H=36.0 786-4 LOINC RDW-SD 43.6 fL L=39.0 H=49.0 788-0 LOINC PLATELET COUNT 245 th/cmm L=150 H=450 777-3 LOINC Social History Type Status Start Date End Date Code Code Syst em Smoking History Never smoker (Never Smoked) 216198976 SNOMED CT Sex Male Medications Medication Start Date End Date Route Frequency Dose Code Code System Medication Instructions Home Meds LaMICtal 200MG Oral Tablet 03/16/2024 05/31/2024 ORAL TWICE A DAY 200 MILLIGRAMS 730534 RxNorm TAKE 200 MILLIGRAMS ORAL TWICE A DAY Atorvastatin Calcium 40MG Oral Tablet 03/16/2024 Unknown ORAL BEDTIME 1 TABLET 661027 RxNorm TAKE 1 TABLET ORAL BEDTIME Aspirin 81MG Oral Tablet, Enteric Coated 03/16/2024 Unknown ORAL DAILY 1 TABLET 424279 RxNorm TAKE 1 TABLET ORAL DAILY Clopidogrel 75MG Oral Tablet 03/16/2024 05/31/2024 ORAL DAILY 1 TABLET 472630 RxNorm TAKE 1 TABLET ORAL DAILY Cephalexin 500MG Oral Capsule 03/29/2024 05/31/2024 ORAL FOUR TIMES A DAY 1 CAPSULE 378529 RxNorm TAKE 1 CAPSULE ORAL FOUR TIMES A DAY x 5 days cefTRIAXone 2GM Injection Powder for Solution 06/08/2024 Unknown IVPB Q24H 2 GRAM RxNorm 2 GRAM IVPB Q24H LORazepam 0.5 MG Oral Tablet 06/08/2024 Unknown ORAL NEEDED DAILY 0.5 MG RxNorm TAKE 0.5 MG ORAL NEEDED DAILY lamoTRIgine 200MG Oral Tablet 06/08/2024 Unknown ORAL TWICE A DAY 200 MILLIGRAMS [id number] RxNorm TAKE 200 MILLIGRAMS ORAL TWICE A [...] Date Status Code Code System STROKE active [id number] SNOMED-CT AORTIC REGURGITATION active 56911177 SNOMED-CT MITRAL REGURGITATION active 41985143 SNOMED-CT BACTEREMIA active 8212904 SNOMED-CT INFECTIVE ENDOCARDITIS active 2017758 07 SNOMED-CT MITRAL REGURGITATION 05/31/2024 resolved 63856357 SNOMED-CT CVA 03/29/2024 resolved 919994620 SNOMED-CT AORTIC REGURGITATION 05/31/2024 resolved 94195029 SNOMED-CT SEIZURE DISORDER 03/08/2024 resolved [id number] SN OMED-CT Allergies and Adverse Reactions Allergy Substance Reaction Severity Start Date Concern Status Co de Code System No Known Allergies Active [id number] SNO MED-CT Plan of Treatment US DVT BILAT 05/24/2024 LAB DRAW 15MIN 04/11/2024 LAB DRAW 15MIN 07/07/2022 LAB DRAW 15MIN 04/13/2022 Encounters Encounter Diagnosis Start Date Code Code Sys tem 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
--- OUTSIDE RECORDS SUMMARY | 2024-06-12 19:08 | XMS_ITS ---
Author Organization Unknown Address [address] [place] [address] [phone] Phone Care Team Providers Care Marketing Rotation Associate Name Role Phone ERIN WILD [facility] Attending Unavailable CLYDE Baltazar Primary Unavailable Results C REACTIVE PROTEIN HIGH SENS ITIVITY* - Collect Date/Time: 05/22/2024 12:41 [facility] ID: [id number] [address] [place] [address], 5[address] LOINC: 21910-2 Test Value Unit Reference Range Code Code System Flag CRP-HIGH SENS. 23.40 mg/L L=0.00 H=3.00 97475-3 LOINC H SED RATE* - Collect Date/Ike e: 05/22/2024 12:41 [facility] ID: [id number] [address] [place] [address], [address] LOINC: 4537-7 Test Value Unit Reference Range Code Code System Flag SED. RATE 18 mm/hr L=0 H=15 4537-7 LOINC H BETA 2 GLYCOPROTEIN 1 ANTIBO DY PANEL* - Collect Date/Time: 05/22/2024 12:41 [facility] ID: [id number] [address] [place] [address], [id number] LOINC: 89810-4 Test Value Unit Reference Range Code Code System Flag Beta 2 GP1 Ab IgG, S <9.4 56061-0 LOINC Beta 2 GP1 Ab IgM, S < 9.4 SMU 55127-2 LOINC CARDIOLIPIN ANTIBODIES* - Co llect Date/Time: 05/22/2024 12:41 [facility] ID: [id number] [address] [place], [place], [id number] LOINC: 3181-5 Test Value Unit Reference Range Code Code System Flag Phospholipid Ab IgM, S <9.4 3182-3 LOINC Phospholipid Ab IgG, S < 9.4 GPL 3181-5 LOINC URIC ACID SERUM - Collect Da te/Time: 05/22/2024 12:41 [facility] ID: [id number] [address] [place], [place], [address] LOINC: 3084-1 Test Value Unit Reference Range Code Code System Flag URIC ACID SERUM 4.2 mg/dL L=3.5 H=8.5 Social History Type Status Start Date End Date Code Code Syst em Smoking History Never smoker (Never Smoked) 018228500 SNOMED CT Sex Male Medications Medication Start Date End Date Route Frequency Dose Code Code System Medication Instructions Home Meds LaMICtal 200MG Oral Tablet 03/16/2024 05/31/2024 ORAL TWICE A DAY 200 MILLIGRAMS 974093 RxNorm TAKE 200 MILLIGRAMS ORAL TWICE A DAY Atorvastatin Calcium 40MG Oral Tablet 03/16/2024 Unknown ORAL BEDTIME 1 TABLET 349179 RxNorm TAKE 1 TABLET ORAL BEDTIME Aspirin 81MG Oral Tablet, Enteric Coated 03/16/2024 Unknown ORAL DAILY 1 TABLET 164652 RxNorm TAKE 1 TABLET ORAL DAILY Clopidogrel 75MG Oral Tablet 03/16/2024 05/31/2024 ORAL DAILY 1 TABLET 668106 RxNorm TAKE 1 TABLET ORAL DAILY Cephalexin 500MG Oral Capsule 03/29/2024 05/31/2024 ORAL FOUR TIMES A DAY 1 CAPSULE 785020 RxNorm TAKE 1 CAPSULE ORAL FOUR TIMES A DAY x 5 days cefTRIAXone 2GM Injection Powder for Solution 06/08/2024 Unknown IVPB Q24H 2 GRAM RxNorm 2 GRAM IVPB Q24H LORazepam 0.5 MG Oral Tablet 06/08/2024 Unknown ORAL NEEDED DAILY 0.5 MG RxNorm TAKE 0.5 MG ORAL NEEDED DAILY lamoTRIgine 200MG Oral Tablet 06/08/2024 Unknown ORAL TWICE A DAY 200 MILLIGRAMS 568884 RxNorm TAKE 200 MILLIGRAMS ORAL TWICE A [...] Date Status Code Code System STROKE active 098385486 SNOMED-CT AORTIC REGURGITATION active 67842569 SNOMED-CT MITRAL REGURGITATION active 09867598 SNOMED-CT BACTEREMIA active 8516191 SNOMED-CT INFECTIVE ENDOCARDITIS active 0750254 07 SNOMED-CT MITRAL REGURGITATION 05/31/2024 resolved 91609940 SNOMED-CT CVA 03/29/2024 resolved 927916479 SNOMED-CT AORTIC REGURGITATION 05/31/2024 resolved 02183486 SNOMED-CT SEIZURE DISORDER 03/08/2024 resolved 405221123 SN OMED-CT Allergies and Adverse Reactions Allergy Substance Reaction Severity Start Date Concern Status Co de Code System No Known Allergies Active 472687637 SNO MED-CT Plan of Treatment US DVT BILAT 05/24/2024 LAB DRAW 15MIN 04/11/2024 LAB DRAW 15MIN 07/07/2022 LAB DRAW 15MIN 04/13/2022 Encounters Encounter Diagnosis Start Date Code Code Sys tem Endocarditis 05/22/2024 [id number] SNOMED-CT Personal Care Team Section Performer Name Performer Role Active Date Inactive Da te
--- OUTSIDE RECORDS SUMMARY | 2024-06-12 19:09 | XMS_ITS ---
Author Organization Unknown Address [address] [place] [address] [phone] Phone Care Team Providers Care Manager Payment Name Role Phone FRANCOISE Baltazar Attending Unavailable CLYDE Baltazar Primary Unavailable Social History Type Status Start Date End Date Code Code Syst em Smoking History Never smoker (Never Smoked) 494772910 SNOMED CT Sex Male Medications Medication Start Date End Date Route Frequency Dose Code Code System Medication Instructions Home Meds LaMICtal 200MG Oral Tablet 03/16/2024 05/31/2024 ORAL TWICE A DAY 200 MILLIGRAMS 839369 RxNorm TAKE 200 MILLIGRAMS ORAL TWICE A DAY Atorvastatin Calcium 40MG Oral Tablet 03/16/2024 Unknown ORAL BEDTIME 1 TABLET 506365 RxNorm TAKE 1 TABLET ORAL BEDTIME Aspirin 81MG Oral Tablet, Enteric Coated 03/16/2024 Unknown ORAL DAILY 1 TABLET 989859 RxNorm TAKE 1 TABLET ORAL DAILY Clopidogrel 75MG Oral Tablet 03/16/2024 05/31/2024 ORAL DAILY 1 TABLET 770149 RxNorm TAKE 1 TABLET ORAL DAILY Cephalexin 500MG Oral Capsule 03/29/2024 05/31/2024 ORAL FOUR TIMES A DAY 1 CAPSULE 591025 RxNorm TAKE 1 CAPSULE ORAL FOUR TIMES A DAY x 5 days cefTRIAXone 2GM Injection Powder for Solution 06/08/2024 Unknown IVPB Q24H 2 GRAM RxNorm 2 GRAM IVPB Q24H LORazepam 0.5 MG Oral Tablet 06/08/2024 Unknown ORAL NEEDED DAILY 0.5 MG RxNorm TAKE 0.5 MG ORAL NEEDED DAILY lamoTRIgine 200MG Oral Tablet 06/08/2024 Unknown ORAL TWICE A DAY 200 MILLIGRAMS 931797 RxNorm TAKE 200 MILLIGRAMS ORAL TWICE A [...] Date Status Code Code System STROKE active 316601716 SNOMED-CT AORTIC REGURGITATION active 96763459 SNOMED-CT MITRAL REGURGITATION active 00218177 SNOMED-CT BACTEREMIA active 6415652 SNOMED-CT INFECTIVE ENDOCARDITIS active 2989229 07 SNOMED-CT MITRAL REGURGITATION 05/31/2024 resolved 35177704 SNOMED-CT CVA 03/29/2024 resolved 835366745 SNOMED-CT AORTIC REGURGITATION 05/31/2024 resolved 76898052 SNOMED-CT SEIZURE DISORDER 03/08/2024 resolved 862693842 SN OMED-CT Allergies and Adverse Reactions Allergy Substance Reaction Severity Start Date Concern Status Co de Code System No Known Allergies Active 115971675 SNO MED-CT Plan of Treatment US DVT BILAT 05/24/2024 LAB DRAW 15MIN 04/11/2024 LAB DRAW 15MIN 07/07/2022 LAB DRAW 15MIN 04/13/2022 Encounters Encounter Diagnosis Start Date Code Code Sys tem Supraventricular tachycardia 04/28/2024 6826082 SNOMED-CT Personal Care Team Section Performer Name Performer Role Active Date Inactive Da te
--- OUTSIDE RECORDS SUMMARY | 2024-06-12 19:09 | XMS_ITS ---
Author Organization Unknown Address [address] [place] [address] [phone] Phone Care Team Providers Care Retirement Officer Name Role Phone ED KAUR Attending Unavailable CLYDE Baltazar Primary Unavailable Results SUSCEPTIBILITY OF BACTERIAL ORGANISM* - Collect Date/Time: 05/30/2024 11:17 [facility] ID: [id number] [address] [place] [address], [phone] LOINC: 04369-7 Test Value Unit Reference Range Code Code System Flag Result STREPTOCOCCUS PARASANGUINIS 37444-1 LOINC A Report Status See Below GRAM STAIN* - Collect Date/T aileen: 05/30/2024 11:17 [facility] ID: [id number] [address] [place] [address], [phone] LOINC: 664-3 Test Value Unit Reference Range Code Code System Flag SOURCE- Blood culture PREDOMINANT ORGANISM Gram pos cocci GRAM STAIN* - Collect Date/T aileen: 05/30/2024 11:17 [facility] ID: [id number] [address] [place] [address], [phone] LOINC: 664-3 Test Value Unit Reference Range Code Code System Flag SOURCE- Blood culture PREDOMINANT ORGANISM Gram pos cocci GRAM STAIN* - Collect Date/T aileen: 05/30/2024 11:17 [facility] ID: [id number] [address] [place] [address], [phone] LOINC: 664-3 Test Value Unit Reference Range Code Code System Flag SOURCE- Blood culture PREDOMINANT ORGANISM Gram pos cocci GRAM STAIN* - Collect Date/T aileen: 05/30/2024 11:17 [facility] ID: [id number] [address] [place], [place], [phone] LOINC: 664-3 Test Value Unit Reference Range Code Code System Flag SOURCE- Blood culture PREDOMINANT ORGANISM Gram pos cocci Social History Type Status Start Date End Date Code Code Syst em Smoking History Never smoker (Never Smoked) 727138647 SNOMED CT Sex Male Medications Medication Start Date End Date Route Frequency Dose Code Code System Medication Instructions Home Meds LaMICtal 200MG Oral Tablet 03/16/2024 05/31/2024 ORAL TWICE A DAY 200 MILLIGRAMS 623245 RxNorm TAKE 200 MILLIGRAMS ORAL TWICE A DAY Atorvastatin Calcium 40MG Oral Tablet 03/16/2024 Unknown ORAL BEDTIME 1 TABLET 399117 RxNorm TAKE 1 TABLET ORAL BEDTIME Aspirin 81MG Oral Tablet, Enteric Coated 03/16/2024 Unknown ORAL DAILY 1 TABLET 985899 RxNorm TAKE 1 TABLET ORAL DAILY Clopidogrel 75MG Oral Tablet 03/16/2024 05/31/2024 ORAL DAILY 1 TABLET 705402 RxNorm TAKE 1 TABLET ORAL DAILY Cephalexin 500MG Oral Capsule 03/29/2024 05/31/2024 ORAL FOUR TIMES A DAY 1 CAPSULE 060556 RxNorm TAKE 1 CAPSULE ORAL FOUR TIMES A DAY x 5 days cefTRIAXone 2GM Injection Powder for Solution 06/08/2024 Unknown IVPB Q24H 2 GRAM RxNorm 2 GRAM IVPB Q24H LORazepam 0.5 MG Oral Tablet 06/08/2024 Unknown ORAL NEEDED DAILY 0.5 MG RxNorm TAKE 0.5 MG ORAL NEEDED DAILY lamoTRIgine 200MG Oral Tablet 06/08/2024 Unknown ORAL TWICE A DAY 200 MILLIGRAMS 784588 RxNorm TAKE 200 MILLIGRAMS ORAL TWICE A [...] Date Status Code Code System STROKE active 721189942 SNOMED-CT AORTIC REGURGITATION active 21741563 SNOMED-CT MITRAL REGURGITATION active 14271834 SNOMED-CT BACTEREMIA active 1824090 SNOMED-CT INFECTIVE ENDOCARDITIS active 4842072 07 SNOMED-CT MITRAL REGURGITATION 05/31/2024 resolved 49514919 SNOMED-CT CVA 03/29/2024 resolved 625708158 SNOMED-CT AORTIC REGURGITATION 05/31/2024 resolved 57423235 SNOMED-CT SEIZURE DISORDER 03/08/2024 resolved 155417162 SN OMED-CT Allergies and Adverse Reactions Allergy Substance Reaction Severity Start Date Concern Status Co de Code System No Known Allergies Active 528332507 SNO MED-CT Plan of Treatment US DVT BILAT 05/24/2024 LAB DRAW 15MIN 04/11/2024 LAB DRAW 15MIN 07/07/2022 LAB DRAW 15MIN 04/13/2022 Encounters Encounter Diagnosis Start Date Code Code Sys tem 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
--- OUTSIDE RECORDS SUMMARY | 2024-06-12 19:09 | XMS_ITS ---
Author Organization Unknown Address [address] [place] [address] [phone] Phone Care Team Providers Care Inventory Taker Name Role Phone NAVYA MUHAMMAD Registered Nurse Unavailable Unavailable Xwatchlist Unavailable MICHELLE VIRK Attending Unavailable [facility] Unavailable CLYDE Baltazar Primary Unavailable UNLISTED PROVIDER - REQUESTED Xhandoff Un available Results C REACTIVE PROTEIN HIGH SENS ITIVITY* - Collect Date/Time: 06/05/2024 06:53 [facility] ID: [id number] - [id number] [address] [place] [address], [address] LOINC: 25146-1 Test Value Unit Reference Range Code Code System Flag CRP-HIGH SENS. 18.16 mg/L L=0.00 H=3.00 27436-5 LOINC H VANCOMYCIN RANDOM* - Collect Date/Time: 06/05/2024 06:53 [facility] ID: [id number] - [id number] [address] [place] [address], [address] LOINC: 4090-7 Test Value Unit Reference Range Code Code System Flag VANCOMYCIN 20.9 ug/mL CBC W/ DIFFERENTIAL* - Colle ct Date/Time: 06/05/2024 06:53 [facility] ID: [id number] - [id number] [address] [place] [address], [address] LOINC: 08346-8 Test Value Unit Reference Range Code Code System Flag WBC 6.07 th/cmm L=5.00 H=10.00 6690-2 LOINC NEUT % 62.9 % L=40.0 H=80.0 LYMPH % 25.9 % L=10.0 H=50.0 MONO % 9.4 % L=2.0 H=12.0 12887-6 LOINC EOS % 1.0 % L=0.0 H=8.0 BASO % 0.5 % L=0.0 H=3.0 IG % 0.3 % L=0.0 H=1.1 2514-8 LOINC NRBC % 0.0 % L=0.0 H=0.0 39949-8 LOINC NEUT abs count 3.8 th/cmm L=1.6 H=8.4 751-8 LOINC LYMPH abs count 1.6 th/cmm L=1.5 H=4.0 731-0 LOINC MONO abs count 0.6 th/cmm L=0.2 H=1.0 742-7 LOINC EOS abs count 0.1 th/cmm L=0.0 H=0.5 711-2 LOINC BASO abs count 0.0 th/cmm L=0.0 H=0.2 704-7 LOINC IG abs count 0.0 th/cmm L=0.0 H=0.1 71795-3 LOINC NRBC abs count 0.0 mil/cmm L=0.0 H=0.0 61808-5 LOINC RBC 4.16 mil/cmm L=4.30 H=6.20 789-8 LOINC L HEMOGLOBIN 12.0 gm/dL L=13.0 H=17.0 718-7 LOINC L HEMATOCRIT 37 % L=45 H=52 4544-3 LOINC L MCV 88 fL L=82 H=92 787-2 LOINC MCH 28.8 pg L=27.0 H=31.0 785-6 LOINC MCHC 32.7 % L=32.0 H=36.0 786-4 LOINC RDW-SD 42.5 fL L=39.0 H=49.0 788-0 LOINC PLATELET COUNT 244 th/cmm L=150 H=450 777-3 LOINC BASIC METABOLIC PANEL (BMP) - Collect Date/Time: 06/05/2024 06:53 [facility] ID: [id number] - [id number] [address] [place], [place], [address] LOINC: 58277-9 Test Value Unit Reference Range Code Code System Flag GLUCOSE 86 mg/dL L=70 H=116 2345-7 LOINC BUN 19 mg/dL L=9 H=20 3094-0 LOINC CREATININE 0.89 mg/dL L=0.60 H=1.25 2160-0 LOINC SODIUM SERUM 140 mmol/L L=136 H=145 2951-2 LOINC POTASSIUM SERUM 3.9 mmol/L L=3.4 H=5.2 2823-3 LOINC CHLORIDE SERUM 104 mmol/L L=98 H=107 2075-0 LOINC CARBON DIOXIDE (CO2) 28 mmol/L L=22 H=30 2028-9 LOINC ANION GAP 8.6 mmol/L 96818-5 LOINC CALCIUM SERUM 8.5 mg/dL L=8.4 H=10.2 66456-2 LOINC AGE 44 years eGFR (non-Afr.Amer.) 93 mL/min 49531-5 LOINC eGFR (Afr-Cuban) 112 mL/min 28720-9 LOINC VANCOMYCIN RANDOM* - Collect Date/Time: 06/04/2024 06:35 [facility] ID: [id number] - [id number] [address] [place] [address], [address] LOINC: 4090-7 Test Value Unit Reference Range Code Code System Flag VANCOMYCIN 19.0 ug/mL GRAM STAIN* - Collect Date/T aileen: 06/03/2024 10:49 [facility] ID: [id number] - [id number] [address] [place] [address], [id number] LOINC: 664-3 Test Value Unit Reference Range Code Code System Flag SOURCE- Blood culture PREDOMINANT ORGANISM Gram pos cocci CBC W/ DIFFERENTIAL* - Colle ct Date/Time: 06/03/2024 06:30 [facility] ID: [id number] - [id number] [address] [place] [address], [address] LOINC: 17255-7 Test Value Unit Reference Range Code Code System Flag WBC 10.55 th/cmm L=5.00 H=10.00 6690-2 LOINC H NEUT % 84.3 % L=40.0 H=80.0 H LYMPH % 9.1 % L=10.0 H=50.0 L MONO % 4.6 % L=2.0 H=12.0 29888-8 LOINC EOS % 1.3 % L=0.0 H=8.0 BASO % 0.3 % L=0.0 H=3.0 IG % 0.4 % L=0.0 H=1.1 2514-8 LOINC NRBC % 0.0 % L=0.0 H=0.0 93661-2 LOINC NEUT abs count 8.9 th/cmm L=1.6 H=8.4 751-8 LOINC H LYMPH abs count 1.0 th/cmm L=1.5 H=4.0 731-0 LOINC L MONO abs count 0.5 th/cmm L=0.2 H=1.0 742-7 LOINC EOS abs count 0.1 th/cmm L=0.0 H=0.5 711-2 LOINC BASO abs count 0.0 th/cmm L=0.0 H=0.2 704-7 LOINC IG abs count 0.0 th/cmm L=0.0 H=0.1 50494-1 LOINC NRBC abs count 0.0 mil/cmm L=0.0 H=0.0 49753-0 LOINC RBC 4.01 mil/cmm L=4.30 H=6.20 789-8 LOINC L HEMOGLOBIN 11.4 gm/dL L=13.0 H=17.0 718-7 LOINC L HEMATOCRIT 35 % L=45 H=52 4544-3 LOINC L MCV 87 fL L=82 H=92 787-2 LOINC MCH 28.4 pg L=27.0 H=31.0 785-6 LOINC MCHC 32.6 % L=32.0 H=36.0 786-4 LOINC RDW-SD 42.0 fL L=39.0 H=49.0 788-0 LOINC PLATELET COUNT 268 th/cmm L=150 H=450 777-3 LOINC BASIC METABOLIC PANEL (BMP) - Collect Date/Time: 06/03/2024 06:30 [facility] ID: [id number] - [id number] [address] [place] [address], [address] LOINC: 24249-3 Test Value Unit Reference Range Code Code System Flag GLUCOSE 97 mg/dL L=70 H=116 2345-7 LOINC BUN 16 mg/dL L=9 H=20 3094-0 LOINC CREATININE 0.75 mg/dL L=0.60 H=1.25 2160-0 LOINC SODIUM SERUM 141 mmol/L L=136 H=145 2951-2 LOINC POTASSIUM SERUM 4.3 mmol/L L=3.4 H=5.2 2823-3 LOINC CHLORIDE SERUM 106 mmol/L L=98 H=107 2075-0 LOINC CARBON DIOXIDE (CO2) 28 mmol/L L=22 H=30 2028-9 LOINC ANION GAP 7.8 mmol/L 44679-1 LOINC CALCIUM SERUM 8.4 mg/dL L=8.4 H=10.2 28071-0 LOINC AGE 44 years eGFR (non-Afr.Amer.) 113 mL/min 30356-6 LOINC eGFR (Afr-Cuban) > 120 mL/min 36373-5 LOINC SED RATE* - Collect Date/Ike e: 06/03/2024 06:30 [facility] ID: [id number] - [id number] [address] [place] [address], [address] LOINC: 4537-7 Test Value Unit Reference Range Code Code System Flag SED. RATE 43 mm/hr L=0 H=15 4537-7 LOINC H C REACTIVE PROTEIN HIGH SENS ITIVITY* - Collect Date/Time: 06/03/2024 06:30 [facility] ID: [id number] - [id number] [address] [place] [address], [address] LOINC: 58700-8 Test Value Unit Reference Range Code Code System Flag CRP-HIGH SENS. 16.89 mg/L L=0.00 H=3.00 31771-7 LOINC H CREATININE SERUM - Collect D ate/Time: 06/03/2024 06:30 [facility] ID: [id number] - [id number] [address] [place] [address], [address] LOINC: 2160-0 Test Value Unit Reference Range Code Code System Flag CREATININE 0.75 mg/dL L=0.60 H=1.25 2160-0 LOINC AGE 44 years eGFR (non-Afr.Amer.) 113 mL/min 07722-6 LOINC eGFR (Afr-Cuban) > 120 mL/min 64661-4 LOINC VANCOMYCIN RANDOM* - Collect Date/Time: 06/03/2024 06:30 [facility] ID: [id number] - [id number] [address] [place] [address], [address] LOINC: 4090-7 Test Value Unit Reference Range Code Code System Flag VANCOMYCIN 14.0 ug/mL VANCOMYCIN RANDOM* - Collect Date/Time: 06/02/2024 06:32 [facility] ID: [id number] - [id number] [address] [place] [address], [address] LOINC: 4090-7 Test Value Unit Reference Range Code Code System Flag VANCOMYCIN 11.8 ug/mL VANCOMYCIN RANDOM* - Collect Date/Time: 06/01/2024 06:20 [facility] ID: [id number] - [id number] [address] [place] [address], [address] LOINC: 4090-7 Test Value Unit Reference Range Code Code System Flag VANCOMYCIN 7.8 ug/mL CBC W/ DIFFERENTIAL* - Colle ct Date/Time: 06/01/2024 06:20 [facility] ID: [id number] - [id number] [address] [place] [address], [address] LOINC: 24342-8 Test Value Unit Reference Range Code Code System Flag WBC 8.60 th/cmm L=5.00 H=10.00 6690-2 LOINC NEUT % 66.0 % L=40.0 H=80.0 LYMPH % 24.1 % L=10.0 H=50.0 MONO % 7.7 % L=2.0 H=12.0 39440-9 LOINC EOS % 1.4 % L=0.0 H=8.0 BASO % 0.5 % L=0.0 H=3.0 IG % 0.3 % L=0.0 H=1.1 2514-8 LOINC NRBC % 0.0 % L=0.0 H=0.0 26754-2 LOINC NEUT abs count 5.7 th/cmm L=1.6 H=8.4 751-8 LOINC LYMPH abs count 2.1 th/cmm L=1.5 H=4.0 731-0 LOINC MONO abs count 0.7 th/cmm L=0.2 H=1.0 742-7 LOINC EOS abs count 0.1 th/cmm L=0.0 H=0.5 711-2 LOINC BASO abs count 0.0 th/cmm L=0.0 H=0.2 704-7 LOINC IG abs count 0.0 th/cmm L=0.0 H=0.1 44156-9 LOINC NRBC abs count 0.0 mil/cmm L=0.0 H=0.0 27607-6 LOINC RBC 3.96 mil/cmm L=4.30 H=6.20 789-8 LOINC L HEMOGLOBIN 11.4 gm/dL L=13.0 H=17.0 718-7 LOINC L HEMATOCRIT 35 % L=45 H=52 4544-3 LOINC L MCV 89 fL L=82 H=92 787-2 LOINC MCH 28.8 pg L=27.0 H=31.0 785-6 LOINC MCHC 32.3 % L=32.0 H=36.0 786-4 LOINC RDW-SD 43.3 fL L=39.0 H=49.0 788-0 LOINC PLATELET COUNT 275 th/cmm L=150 H=450 777-3 LOINC C REACTIVE PROTEIN HIGH SENS ITIVITY* - Collect Date/Time: 06/01/2024 06:20 [facility] ID: [id number] - [id number] [address] [place], [place], [address] LOINC: 58318-6 Test Value Unit Reference Range Code Code System Flag CRP-HIGH SENS. 50.29 mg/L L=0.00 H=3.00 37310-3 LOINC H GRAM STAIN* - Collect Date/T aileen: 06/01/2024 06:20 [facility] ID: [id number] - [id number] [address] [place] [address], [id number] LOINC: 664-3 Test Value Unit Reference Range Code Code System Flag SOURCE- Blood culture PREDOMINANT ORGANISM Gram pos cocci COMPREHENSIVE METABOLIC PANE L (CMP) - Collect Date/Time: 06/01/2024 06:20 [facility] ID: [id number] - [id number] [address] [place] [address], [address] LOINC: 07735-1 Test Value Unit Reference Range Code Code System Flag GLUCOSE 94 mg/dL L=70 H=116 2345-7 LOINC BUN 20 mg/dL L=9 H=20 3094-0 LOINC CREATININE 0.95 mg/dL L=0.60 H=1.25 2160-0 LOINC SODIUM SERUM 141 mmol/L L=136 H=145 2951-2 LOINC POTASSIUM SERUM 4.5 mmol/L L=3.4 H=5.2 2823-3 LOINC CHLORIDE SERUM 104 mmol/L L=98 H=107 2075-0 LOINC CARBON DIOXIDE (CO2) 29 mmol/L L=22 H=30 2028-9 LOINC ANION GAP 7.4 mmol/L 74529-0 LOINC CALCIUM SERUM 8.8 mg/dL L=8.4 H=10.2 65081-7 LOINC BILIRUBIN TOTAL < 0.1 mg/dL L=0.2 H=1.3 1975-2 LOINC L ALK. PHOS. 67 U/L L=38 H=126 6768-6 LOINC SGOT (AST) 26 U/L L=17 H=59 1920-8 LOINC SGPT (ALT) 19 U/L L=4 H=50 1742-6 LOINC TOTAL PROTEIN 6.8 gm/dL L=6.0 H=8.0 2885-2 LOINC ALBUMIN 3.6 gm/dL L=3.4 H=5.0 1751-7 LOINC AGE 44 years eGFR (non-Afr.Amer.) 86 mL/min 01119-3 LOINC eGFR (Afr-Cuban) 104 mL/min 85863-6 LOINC GRAM STAIN* - Collect Date/T aileen: 06/01/2024 06:20 [facility] ID: [id number] - [id number] [address] [place] [address], [id number] LOINC: 664-3 Test Value Unit Reference Range Code Code System Flag SOURCE- Blood culture PREDOMINANT ORGANISM Gram pos cocci SED RATE* - Collect Date/Ike e: 06/01/2024 06:20 [facility] ID: [id number] - [id number] [address] [place] [address], [address] LOINC: 4537-7 Test Value Unit Reference Range Code Code System Flag SED. RATE 35 mm/hr L=0 H=15 4537-7 LOINC H CBC W/ DIFFERENTIAL* - Colle ct Date/Time: 05/31/2024 10:35 [facility] ID: [id number] - [id number] [address] [place] [address], [address] LOINC: 90774-3 Test Value Unit Reference Range Code Code System Flag WBC 9.92 th/cmm L=5.00 H=10.00 6690-2 LOINC NEUT % 77.1 % L=40.0 H=80.0 LYMPH % 14.9 % L=10.0 H=50.0 MONO % 6.9 % L=2.0 H=12.0 37011-3 LOINC EOS % 0.3 % L=0.0 H=8.0 BASO % 0.4 % L=0.0 H=3.0 IG % 0.4 % L=0.0 H=1.1 2514-8 LOINC NRBC % 0.0 % L=0.0 H=0.0 71396-7 LOINC NEUT abs count 7.7 th/cmm L=1.6 H=8.4 751-8 LOINC LYMPH abs count 1.5 th/cmm L=1.5 H=4.0 731-0 LOINC MONO abs count 0.7 th/cmm L=0.2 H=1.0 742-7 LOINC EOS abs count 0.0 th/cmm L=0.0 H=0.5 711-2 LOINC BASO abs count 0.0 th/cmm L=0.0 H=0.2 704-7 LOINC IG abs count 0.0 th/cmm L=0.0 H=0.1 25647-5 LOINC NRBC abs count 0.0 mil/cmm L=0.0 H=0.0 74649-7 LOINC RBC 4.36 mil/cmm L=4.30 H=6.20 789-8 LOINC HEMOGLOBIN 12.8 gm/dL L=13.0 H=17.0 718-7 LOINC L HEMATOCRIT 39 % L=45 H=52 4544-3 LOINC L MCV 88 fL L=82 H=92 787-2 LOINC MCH 29.4 pg L=27.0 H=31.0 785-6 LOINC MCHC 33.2 % L=32.0 H=36.0 786-4 LOINC RDW-SD 42.5 fL L=39.0 H=49.0 788-0 LOINC PLATELET COUNT 261 th/cmm L=150 H=450 777-3 LOINC SED RATE* - Collect Date/Ike e: 05/31/2024 10:35 [facility] ID: [id number] - [id number] [address] [place], [place], [address] LOINC: 4537-7 Test Value Unit Reference Range Code Code System Flag SED. RATE 35 mm/hr L=0 H=15 4537-7 LOINC H COMPREHENSIVE METABOLIC PANE L (CMP) - Collect Date/Time: 05/31/2024 10:35 [facility] ID: [id number] - [id number] [address] [place], [place], [address] LOINC: 42668-1 Test Value Unit Reference Range Code Code System Flag GLUCOSE 109 mg/dL L=70 H=116 2345-7 LOINC BUN 17 mg/dL L=9 H=20 3094-0 LOINC CREATININE 1.03 mg/dL L=0.60 H=1.25 2160-0 LOINC SODIUM SERUM 141 mmol/L L=136 H=145 2951-2 LOINC POTASSIUM SERUM 4.1 mmol/L L=3.4 H=5.2 2823-3 LOINC CHLORIDE SERUM 100 mmol/L L=98 H=107 2075-0 LOINC CARBON DIOXIDE (CO2) 30 mmol/L L=22 H=30 2028-9 LOINC ANION GAP 11.4 mmol/L 83721-9 LOINC CALCIUM SERUM 9.1 mg/dL L=8.4 H=10.2 78412-8 LOINC BILIRUBIN TOTAL 0.3 mg/dL L=0.2 H=1.3 1975-2 LOINC ALK. PHOS. 79 U/L L=38 H=126 6768-6 LOINC SGOT (AST) 26 U/L L=17 H=59 1920-8 LOINC SGPT (ALT) 22 U/L L=4 H=50 1742-6 LOINC TOTAL PROTEIN 7.9 gm/dL L=6.0 H=8.0 2885-2 LOINC ALBUMIN 4.4 gm/dL L=3.4 H=5.0 1751-7 LOINC AGE 44 years eGFR (non-Afr.Amer.) 78 mL/min 76714-9 LOINC eGFR (Afr-Cuban) 95 mL/min 36730-[address] ANGIOGRAPHY HEAD WWO CONT RAST - Completed: 06/02/2024 15:14 LOINC: [facility] [place], [place] [address] RADIOLOGY SHELF [employer]ER REPORT Patient Name: MARIANO MOORE MRN: Sex: : Age: [id number] M 1980 44 Account: Accession: Admit: StayType: [id number] 05/31/2024 I Ordered: Order ID: Submitted: Ordering Provider: 06/02/2024 13:28 [id number] JEREMY DIALLO Completed: Technologist: Resulted: 06/02/2024 14:55 CML 06/02/2024 15:37 EXAMINATION: CT ANGIOGRAPHY HEAD WWO CONTRAST CLINICAL HISTORY: Reason for Head: endocarditis Add'l Info: Previous stroke TECHNIQUE: CTA of the head performed after the intravenous administration of 100 cc of Omnipaque 350. MIP and 3-D volumetric reconstructions were created. COMPARISON: Concurrent MRI of the brain, head CT/CTA of 03/14/2024. Brain MRI 03/14/2024 FINDINGS: Noncontrast CT: There is no acute intracranial hemorrhage or mass effect. There is no extra axial collection or ventricular dilation. There is no acute confluent ischemic infarct. Old small lacunar infarct suspected head of left caudate nucleus and right putamen, unchanged. No interval osseous or extra cranial soft tissue findings. CTA HEAD: Intracranial internal carotid artery segments are normally patent. There is no large vessel occlusion or significant stenosis identified of the proximal anterior or middle cerebral artery segments. Mid to distal branches of cerebral arteries are suboptimally visualized, likely artifactual. The proximal vertebrobasilar system and posterior cerebral arteries are unremarkable. There are no saccular aneurysms identified. IMPRESSION: No acute intracranial pathology. No large vessel occlusion or proximal high-grade stenoses. Limited evaluation of mid to distal segments of the cerebral arteries. Thank you for letting us participate in the care of this patient. If you are a health care provider and have any questions regarding this report, please contact the number below. For patients who have questions please contact the health home care aide that requested your imaging first. BRAIN WO CONTRAST - Compl eted: 06/02/2024 15:18 LOINC: [facility] [place], [place] [address] RADIOLOGY SHELF [employer]ER REPORT Patient Name: MARIANO MOORE MRN: Sex: : Age: [id number] M 1980 44 Account: Accession: Admit: StayType: [id number] 05/31/2024 I Ordered: Order ID: Submitted: Ordering Provider: 06/02/2024 13:28 [id number] JEREMY DIALLO Completed: Technologist: Resulted: 06/02/2024 14:28 DL 06/02/2024 15:41 EXAMINATION: MR BRAIN WO CONTRAST CLINICAL HISTORY: Reason MRI Head: Abn findings on CT Add'l Info: Endocarditis and previous stroke TECHNIQUE: MRI of the brain performed without intravenous contrast administration. COMPARISON: MRI brain of 03/14/[address] 03/14/[address] angiogram of the head FINDINGS: There is no acute or subacute ischemic infarct, acute intracranial hemorrhage or mass effect. 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 There is a peripheral microhemorrhage in the posterior right temporal lobe. There are no additional interval signal abnormalities of the brain parenchyma. Ventricles are normal in size. There is no extra-axial collection. There are no osseous or extracranial soft tissue lesions identified. There is no evidence of significant inflammatory sinonasal, middle ear or mastoid disease. IMPRESSION: No acute infarct. 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 Interval right posterior temporal lobe microhemorrhage. No additional interval findings. Old small left caudate and right putaminal lacunar infarcts, unchanged. Thank you for letting us participate in the care of this patient. If you are a health care provider and have any questions regarding this report, please contact the number below. For patients who have questions please contact the health home care aide that requested your imaging first. BAILEY WWO CONTRAST - Com pleted: 06/01/2024 18:31 LOINC: [facility] [place], [place] [address] RADIOLOGY SHE[employer]ER REPORT Patient Name: MARIANO MOORE MRN: Sex: : Age: [id number] M 1980 44 Account: Accession: Admit: StayType: [id number] 05/31/2024 I Ordered: Order ID: Submitted: Ordering Provider: 06/01/2024 10:06 [id number] SULLY KELLER Completed: Technologist: Resulted: 06/01/2024 16:35 ELSY 06/01/2024 19:50 EXAMINATION: MR CSPINE WWO CONTRAST, MR TSPINE WWO CONTRAST, MR LS SPINE WWO CONTRAST CLINICAL HISTORY: BACTREMIA TECHNIQUE: MRI of the cervical spine was performed before and after the intravenous administration of 16cc Dotarem. COMPARISON: None FINDINGS: Cervical spine: Normal alignment of the cervical spine. No epidural phlegmon or abscess. No facet joint effusion. Small T1 hypointense, T2 hyperintense, mildly enhancing lesion within the C7 vertebral body, potentially small hemangioma. No other sites of abnormal marrow signal or enhancement. Normal signal and caliber of the cervical cord. Posterior disc osteophyte complexes at C3-C4, C5-C6, and C6-C7 with mild spinal canal stenosis. Multilevel uncovertebral arthropathy causes up to severe right foraminal narrowing at C6-C7. The paraspinal soft tissues are unremarkable. The posterior fossa is normal. Thoracic spine: Right convex thoracic curvature noted. At T8-T9 there is loss of disc height with irregularity of the T8 inferior endplate and T9 superior endplate. There is ill-defined T1 hypointense, STIR hyperintense marrow signal and enhancement in the T8 and T9 vertebral bodies. There is mild paraspinal soft tissue thickening and enhancement at T8 and T9. Multilevel nonedematous endplate irregularities and Schmorl's nodes herniations are identified throughout the thoracic spine. No epidural phlegmon or abscess. No facet joint effusion. No paraspinal abscess. Disc bulge at T3-T4 with mild spinal canal stenosis. No significant spinal canal stenosis at any other level. Lumbar spine: No abnormal marrow signal, no abnormal disc signal, or enhancement to suggest discitis/osteomyelitis. No epidural phlegmon or epidural abscess. Small facet joint effusions at multiple levels likely degenerative secondary to facet arthropathy. There is mild endplate edema towards the right at L2-L3, likely degenerative in etiology. Disc bulges and facet arthropathy at L3-L4 and L4-L5 resulting in moderate stenosis of the bilateral subarticular recesses and mild bilateral neural foraminal stenosis. Moderate left neural foraminal stenosis at L5-S1. The paraspinal soft tissues are unremarkable. IMPRESSION: Findings suggestive of discitis/osteomyelitis at T8-T9. No epidural phlegmon or abscess. Multilevel degenerative spondylosis as enumerated without cord compression or abnormal spinal cord signal. See above for additional findings. Thank you for letting us participate in the care of this patient. If you are a health care provider and have any questions regarding this report, please contact the number below. For patients who have questions please contact the health home care aide that requested your imaging first. LS SPINE WWO CONTRAST - C ompleted: 06/01/2024 18:31 LOINC: [facility] RAD[facility] [place] [address] RADIOLOGY SHE[employer] REPORT Patient Name: MARIANO MOORE MRN: Sex: : Age: [id number] M 1980 44 Account: Accession: Admit: StayType: [id number] 05/31/2024 I Ordered: Order ID: Submitted: Ordering Provider: 06/01/2024 09:56 [id number] SULLY KELLER Completed: Technologist: Resulted: 06/01/2024 16:35 ELSY 06/01/2024 19:50 EXAMINATION: MR CSPINE WWO CONTRAST, MR TSPINE WWO CONTRAST, MR LS SPINE WWO CONTRAST CLINICAL HISTORY: BACTREMIA TECHNIQUE: MRI of the cervical spine was performed before and after the intravenous administration of 16cc Dotarem. COMPARISON: None FINDINGS: Cervical spine: Normal alignment of the cervical spine. No epidural phlegmon or abscess. No facet joint effusion. Small T1 hypointense, T2 hyperintense, mildly enhancing lesion within the C7 vertebral body, potentially small hemangioma. No other sites of abnormal marrow signal or enhancement. Normal signal and caliber of the cervical cord. Posterior disc osteophyte complexes at C3-C4, C5-C6, and C6-C7 with mild spinal canal stenosis. Multilevel uncovertebral arthropathy causes up to severe right foraminal narrowing at C6-C7. The paraspinal soft tissues are unremarkable. The posterior fossa is normal. Thoracic spine: Right convex thoracic curvature noted. At T8-T9 there is loss of disc height with irregularity of the T8 inferior endplate and T9 superior endplate. There is ill-defined T1 hypointense, STIR hyperintense marrow signal and enhancement in the T8 and T9 vertebral bodies. There is mild paraspinal soft tissue thickening and enhancement at T8 and T9. Multilevel nonedematous endplate irregularities and Schmorl's nodes herniations are identified throughout the thoracic spine. No epidural phlegmon or abscess. No facet joint effusion. No paraspinal abscess. Disc bulge at T3-T4 with mild spinal canal stenosis. No significant spinal canal stenosis at any other level. Lumbar spine: No abnormal marrow signal, no abnormal disc signal, or enhancement to suggest discitis/osteomyelitis. No epidural phlegmon or epidural abscess. Small facet joint effusions at multiple levels likely degenerative secondary to facet arthropathy. There is mild endplate edema towards the right at L2-L3, likely degenerative in etiology. Disc bulges and facet arthropathy at L3-L4 and L4-L5 resulting in moderate stenosis of the bilateral subarticular recesses and mild bilateral neural foraminal stenosis. Moderate left neural foraminal stenosis at L5-S1. The paraspinal soft tissues are unremarkable. IMPRESSION: Findings suggestive of discitis/osteomyelitis at T8-T9. No epidural phlegmon or abscess. Multilevel degenerative spondylosis as enumerated without cord compression or abnormal spinal cord signal. See above for additional findings. Thank you for letting us participate in the care of this patient. If you are a health care provider and have any questions regarding this report, please contact the number below. For patients who have questions please contact the health home care aide that requested your imaging first. [email or web address] pleted: 06/01/2024 18:31 LOINC: [facility] [place] [id number] RADIOLOGY [employer] REPORT Patient Name: MARIANO MOORE MRN: Sex: : Age: [id number] M 1980 44 Account: Accession: Admit: StayType: [id number] 05/31/2024 I Ordered: Order ID: Submitted: Ordering Provider: 06/01/2024 10:05 [id number] SULLY KELLER Completed: Technologist: Resulted: 06/01/2024 16:35 ELSY 06/01/2024 19:50 EXAMINATION: MR CSPINE WWO CONTRAST, MR TSPINE WWO CONTRAST, MR LS SPINE WWO CONTRAST CLINICAL HISTORY: BACTREMIA TECHNIQUE: MRI of the cervical spine was performed before and after the intravenous administration of 16cc Dotarem. COMPARISON: None FINDINGS: Cervical spine: Normal alignment of the cervical spine. No epidural phlegmon or abscess. No facet joint effusion. Small T1 hypointense, T2 hyperintense, mildly enhancing lesion within the C7 vertebral body, potentially small hemangioma. No other sites of abnormal marrow signal or enhancement. Normal signal and caliber of the cervical cord. Posterior disc osteophyte complexes at C3-C4, C5-C6, and C6-C7 with mild spinal canal stenosis. Multilevel uncovertebral arthropathy causes up to severe right foraminal narrowing at C6-C7. The paraspinal soft tissues are unremarkable. The posterior fossa is normal. Thoracic spine: Right convex thoracic curvature noted. At T8-T9 there is loss of disc height with irregularity of the T8 inferior endplate and T9 superior endplate. There is ill-defined T1 hypointense, STIR hyperintense marrow signal and enhancement in the T8 and T9 vertebral bodies. There is mild paraspinal soft tissue thickening and enhancement at T8 and T9. Multilevel nonedematous endplate irregularities and Schmorl's nodes herniations are identified throughout the thoracic spine. No epidural phlegmon or abscess. No facet joint effusion. No paraspinal abscess. Disc bulge at T3-T4 with mild spinal canal stenosis. No significant spinal canal stenosis at any other level. Lumbar spine: No abnormal marrow signal, no abnormal disc signal, or enhancement to suggest discitis/osteomyelitis. No epidural phlegmon or epidural abscess. Small facet joint effusions at multiple levels likely degenerative secondary to facet arthropathy. There is mild endplate edema towards the right at L2-L3, likely degenerative in etiology. Disc bulges and facet arthropathy at L3-L4 and L4-L5 resulting in moderate stenosis of the bilateral subarticular recesses and mild bilateral neural foraminal stenosis. Moderate left neural foraminal stenosis at L5-S1. The paraspinal soft tissues are unremarkable. IMPRESSION: Findings suggestive of discitis/osteomyelitis at T8-T9. No epidural phlegmon or abscess. Multilevel degenerative spondylosis as enumerated without cord compression or abnormal spinal cord signal. See above for additional findings. Thank you for letting us participate in the care of this patient. If you are a health care provider and have any questions regarding this report, please contact the number below. For patients who have questions please contact the health home care aide that requested your imaging first. CHEST PORTABLE OR 1V - Co mpleted: 06/08/2024 13:48 LOINC: [facility] [place], [place] [address] RADIOLOGY SHELF STOCKER REPORT Patient Name: MARIANO MOORE MRN: Sex: : Age: [id number] M 1980 44 Account: Accession: Admit: StayType: [id number] 05/31/2024 I Ordered: Order ID: Submitted: Ordering Provider: 06/08/2024 11:41 [id number] RAE BLANK Completed: Technologist: Resulted: 06/08/2024 13:43 MG 06/08/2024 14:44 EXAMINATION: XR CHEST PORTABLE OR 1V CLINICAL HISTORY: Reason for Chest: Line Placement Add'l Info: portable to outpatient procedure room TECHNIQUE: Portable AP view of the chest COMPARISON: Chest radiograph 05/31/2024 FINDINGS: Right upper extremity PICC tip projects over the upper SVC. Normal cardiomediastinal silhouette. The costophrenic angles are excluded from the examination. No pneumothorax. No focal lung consolidation within the visualized lungs. IMPRESSION: Right upper extremity PICC tip projects over the SVC. Thank you for letting us participate in the care of this patient. If you are a health care provider and have any questions regarding this report, please contact the number below. For patients who have questions please contact the health home care aide that requested your imaging first. CHEST PORTABLE OR 1V - Co mpleted: 05/31/2024 10:56 LOINC: [facility] [place], [place] [address] RADIOLOGY SHELF STOCKER REPORT Patient Name: MARIANO MOORE MRN: Sex: : Age: [id number] M 1980 44 Account: Accession: Admit: StayType: [id number] 05/31/2024 E Ordered: Order ID: Submitted: Ordering Provider: 05/31/2024 10:47 [id number] CARLA BENAVIDEZ Completed: Technologist: Resulted: 05/31/2024 10:54 KMD 05/31/2024 11:30 EXAMINATION: XR CHEST PORTABLE OR 1V CLINICAL HISTORY: fevers TECHNIQUE: Portable AP view of the chest COMPARISON: 05/31/2024 FINDINGS: The cardiomediastinal silhouette is within normal limits The lungs are clear. No pleural effusion or pneumothorax There is convex right scoliosis centered in the midthoracic spine IMPRESSION: No acute pulmonary findings Thank you for letting us participate in the care of this patient. If you are a health care provider and have any questions regarding this report, please contact the number below. For patients who have questions please contact the health home care aide that requested your imaging first. Social History Type Status Start Date End Date Code Code Syst em Smoking History Never smoker (Never Smoked) 668238904 SNOMED CT Sex Male Vital Signs Vital Sign Value Unit Dickson Value Dickson Unit Date/Time Recent/Initial? Code Code System Body Mass Index 20.83 kg/m2 05/31/2024 10:18 Initial 96309 -5 LOINC Systolic Blood Pressure 121 mm[Hg] 06/08/2024 11:19 Most Recent 8480- 6 LOINC Diastolic Blood Pressure 59 mm[Hg] 06/08/2024 11:19 Most Recent 8462- 4 LOINC Systolic Blood Pressure 133 mm[Hg] 05/31/2024 10:18 Initial 8480- 6 LOINC Diastolic Blood Pressure 71 mm[Hg] 05/31/2024 10:18 Initial 8462- 4 LOINC Body Surface Area 2.08 m2 05/31/2024 10:18 Initial 3140- 1 LOINC Height 195.580 0 cm 77.00 in 05/31/2024 10:18 Initial 8302- 2 LOINC O2 Saturation 99 % 2023 11:19 Most Recent 89611 -5 LOINC O2 Saturation 100 % 2023 10:18 Initial 06483 -5 LOINC Pulse 70.0 /min 06/08/2024 11:19 Most Recent 8867- 4 LOINC Pulse 96.0 /min 05/31/2024 10:18 Initial 8867- 4 LOINC Respiration 18 /min 06/08/20 11:19 Most Recent 9279- 1 LOINC Respiration 16 /min 05/31/20 10:18 Initial 9279- 1 LOINC Temperature 36.4 Roxi 97.5 F 06/08/20 11:19 Most Recent 8310- 5 LOINC Temperature 37.4 Roxi 99.3 F 05/31/20 10:18 Initial 8310- 5 LOINC Weight 79.70 kg 175.70 lbs 05/31/2024 10:18 Initial 13944 -7 [facility] Medications Medication Start Date End Date Route Frequency Dose Code Code System Medication Instructions Home Meds Atorvastatin Calcium 40MG Oral Tablet 03/16/2024 Unknown ORAL BEDTIME 1 TABLET 300495 RxNorm TAKE 1 TABLET ORAL BEDTIME Aspirin 81MG Oral Tablet, Enteric Coated 03/16/2024 Unknown ORAL DAILY 1 TABLET 877299 RxNorm TAKE 1 TABLET ORAL DAILY cefTRIAXone 2GM Injection Powder for Solution 06/08/2024 [...] Date Status Code Code System STROKE active 474708266 SNOMED-CT AORTIC REGURGITATION active 06840322 SNOMED-CT MITRAL REGURGITATION active 04993734 SNOMED-CT BACTEREMIA active 8729747 SNOMED-CT INFECTIVE ENDOCARDITIS active 3037045 07 SNOMED-CT MITRAL REGURGITATION 05/31/2024 resolved 60194981 SNOMED-CT CVA 03/29/2024 resolved 690959308 SNOMED-CT AORTIC REGURGITATION 05/31/2024 resolved 91857827 SNOMED-CT SEIZURE DISORDER 03/08/2024 resolved 142596133 SN OMED-CT Allergies and Adverse Reactions Allergy Substance Reaction Severity Start Date Concern Status Co de Code System No Known Allergies Active 994635523 SNO MED-CT Plan of Treatment US DVT BILAT 05/24/2024 LAB DRAW 15MIN 04/11/2024 LAB DRAW 15MIN 07/07/2022 LAB DRAW 15MIN 04/13/2022 Personal Care Team Section Performer Name Performer Role Active Date Inactive Da te Imaging Narrative Notes [facility] [place] [id number] RADIOLOGY SHELF STOCKER REPORT Patient Name: MARIANO MOORE MRN: Sex: : Age: [id number] M 1980 44 Account: Accession: Admit: StayType: [id number] 05/31/2024 I Ordered: Order ID: Submitted: Ordering Provider: 06/01/2024 10:05 [id number] SULLY KELLER Completed: Technologist: Resulted: 06/01/2024 16:35 ELSY 06/01/2024 19:50 EXAMINATION: MR CSPINE WWO CONTRAST, MR TSPINE WWO CONTRAST, MR LS SPINE WWO CONTRAST CLINICAL HISTORY: BACTREMIA TECHNIQUE: MRI of the cervical spine was performed before and after the intravenous administration of 16cc Dotarem. COMPARISON: None FINDINGS: Cervical spine: Normal alignment of the cervical spine. No epidural phlegmon or abscess. No facet joint effusion. Small T1 hypointense, T2 hyperintense, mildly enhancing lesion within the C7 vertebral body, potentially small hemangioma. No other sites of abnormal marrow signal or enhancement. Normal signal and caliber of the cervical cord. Posterior disc osteophyte complexes at C3-C4, C5-C6, and C6-C7 with mild spinal canal stenosis. Multilevel uncovertebral arthropathy causes up to severe right foraminal narrowing at C6-C7. The paraspinal soft tissues are unremarkable. The posterior fossa is normal. Thoracic spine: Right convex thoracic curvature noted. At T8-T9 there is loss of disc height with irregularity of the T8 inferior endplate and T9 superior endplate. There is ill-defined T1 hypointense, STIR hyperintense marrow signal and enhancement in the T8 and T9 vertebral bodies. There is mild paraspinal soft tissue thickening and enhancement at T8 and T9. Multilevel nonedematous endplate irregularities and Schmorl's nodes herniations are identified throughout the thoracic spine. No epidural phlegmon or abscess. No facet joint effusion. No paraspinal abscess. Disc bulge at T3-T4 with mild spinal canal stenosis. No significant spinal canal stenosis at any other level. Lumbar spine: No abnormal marrow signal, no abnormal disc signal, or enhancement to suggest discitis/osteomyelitis. No epidural phlegmon or epidural abscess. Small facet joint effusions at multiple levels likely degenerative secondary to facet arthropathy. There is mild endplate edema towards the right at L2-L3, likely degenerative in etiology. Disc bulges and facet arthropathy at L3-L4 and L4-L5 resulting in moderate stenosis of the bilateral subarticular recesses and mild bilateral neural foraminal stenosis. Moderate left neural foraminal stenosis at L5-S1. The paraspinal soft tissues are unremarkable. IMPRESSION: Findings suggestive of discitis/osteomyelitis at T8-T9. No epidural phlegmon or abscess. Multilevel degenerative spondylosis as enumerated without cord compression or abnormal spinal cord signal. See above for additional findings. Thank you for letting us participate in the care of this patient. If you are a health care provider and have any questions regarding this report, please contact the number below. For patients who have questions please contact the health home care aide that requested your imaging first. Electronically signed by: Ubaldo Kirkland DO [facility] ([phone]), at 06/01/2024 7:50 PM History and Physical Notes [facility] 05/31/2024 23:58 All Demographics Patient Name Age Sex Visit Number Admission Date/Time Attending Physician Date of Service Room and Bed Emergency Contact MARIANO MOORE 1980 44 years Male [id number] 05/31/2024 13:46 SULLY MARTINEZ 05/31/2024 [id number] ESME MOORE M - [id number] ESME MOORE M - [id number] 05/31/2024 15:56 Admission Date: 05/31/2024 Reason for Admission: Bacteremia Code Status: Full Code Attending Physician: Sully Martinez MD Primary Care Physician: CLYDE Baltazar Referring Physician: Carla Palmer MD History of Present Illness Chief Complaint: ABNORMAL BLOOD WORK Mariano Moore is a 44-year-old male with a medical history significant for aortic regurgitation, mitral valve thickening with regurgitation, history of recent stroke 03/14/2024 to the right midbrain and right peduncle with residual mild double vision thought to be cardioembolic, presenting with positive blood cultures on outpatient labs. Since his discharge the patient has been doing much the same. He continues to feel fatigued and generally poorly which has been going on since this summer. He also notes intermittent night sweats that have also been ongoing since the summer. Since his discharge his only other significant illness has been cellulitis of the bilateral lower extremities which resolved with antibiotics. He does not recall having further fevers during that illness and blood cultures were not drawn. He had a follow up with Dr. Sabillon yesterday where she phani blood cultures; all four bottles were positive for gram positive cocci today and he was instructed to come to the emergency department. The patient denies chest pain, shortness of breath, vomiting, diarrhea, changes, hematuria, dysuria, rash. Of note he also had a Zio monitor from 04/03/2024-04/16/2024 which showed no atrial fibrillation. He also had a recent MR brain and CT angiogram both negative as well as bubble study PERI from 04/28/2024 which revealed normal EF, mild to moderate aortic regurgitation, moderately thickened mitral valve leaflets with decreased mobility and mild to moderate mitral regurgitation. In the emergency department the patient's temperature is 99.3F, heart rate in the 90s, blood pressure stable, O2 sats in the 90s on room air. CMP within normal limits, CBC also within normal limits with the exception of a mildly depressed hemoglobin 12.8 & 39 which appears to be at the patient's baseline. Sed rate is 35. Chest x-ray today with no acute cardiopulmonary findings. In the emergency department the patient was given cefazolin and vancomycin as well as IV fluid and referred to the hospital service for further evaluation and treatment. Ordered & Completed Meds Table Ordered Medication Start Date/Time Dosage Route Frequency Status CeFAZolin IVPB FROZEN PREMIX: 2GM/100ML 05/31/2024 11:03 200 ml/hr IV PIGGYBACK X1 completed VANCOMYCIN IVPB:0.5GM/100ML 05/31/2024 11:29 120 ml/hr IV PIGGYBACK X1 completed DEXTROSE 5% AND NACL 0.45% 1000ML 05/31/2024 11:37 150 ml/hr INTRAVENOUS X1 completed Past Medical/Surgical/Family/Social History Medical History: All Problems Problem Comment Seizure disorder Stroke CVA Aortic regurgitation Mitral regurgitation Surgical History: No Surgical History Family History: Lives at home with his , quite active. No tobacco use. Recreational marijuana denies alcohol use. Social History: Allergy List No Known Allergies, Medication, Environment, Food Current Medications: Home Meds: Dose and Freq Medication Dosage Frequency LORazepam 0.5 MG Oral Tablet 0.5 MG NEEDED DAILY Aspirin 81MG Oral Tablet, Enteric Coated 1 TABLET DAILY Atorvastatin Calcium 40MG Oral Tablet 1 TABLET BEDTIME REVIEW OF SYSTEMS: CONSTITUTIONAL: Endorses intermittent night sweats, generalized fatigue EYES: Endorses continued mild diplopia with right lateral eye gaze, improved. ENT: Denies sore throat, congestion RESPIRATORY: Denies shortness of breath or cough HEART: Denies palpitations or chest pain ABDOMEN: Denies nausea, vomiting, diarrhea GENITOURINARY : Denies dysuria, hematuria EXTREMITIES: Denies edema SKIN: Denies rash or abrasion. NEURO: Denies dizziness, syncope PHYSICAL EXAM Most Recent Vital Signs BP (mm/Hg) BP Position/Site MAP (mm/Hg) Heart Rate Resp Temp (C) Temp (F) SPO2% O2 Device Pain Score Height (cm) Height (in) Weight (kg) Weight (lbs/ozs) 132/72 LYING/L ARM 92 87 18 37.4 TEMPORAL SCANNING 99.3 TEMPORAL SCANNING 100 % 6 195.6 cm 77 in 79.7 kg 175.11 GENERAL: Well appearing and well nourished. In no apparent distress. SKIN: Intact, no rashes. No jaundice. [place] and warm with good turgor. HEENT: Normocephalic, atraumatic. Pupils are equal, round and reactive to light. Extraocular muscles are grossly intact. Sclerae are without injection or icterus. Mucous membranes pink and moist. NECK: Supple, without lesions, or adenopathy. No JVD appreciated. Trachea midline. CHEST/LUNGS: Clear to auscultation bilaterally. No rales, rhonchi, or wheezes are appreciated. HEART: Regular rate and rhythm. No murmurs, rubs, clicks or gallops. ABDOMEN: Soft, non-tender and non-distended. Bowel sound in all four quadrants. No hepatosplenomegaly or hernias or masses noted. MUSCULOSKELETAL: Grossly normal gait and station. No misalignment, asymmetry, decreased range of motion, or instability appreciated. EXTREMITIES: No peripheral edema appreciated. No amputations, deformities, or signs of trauma. NEUROLOGIC: The patient is oriented x3. Muscle strength grossly intact in the upper and lower extremities bilaterally. Sensation to pain, touch, and proprioception are grossly normal. PSYCHIATRIC: Mood and affect are appropriate. Memory is intact with good short- and long-term memory recall. Pre-Admission Studies: Lab Results: Last Week Test Results Units Reference Range Collected WBC 9.92 th/cmm L=5.00 H=10.00 05/31/2024 10:35 NEUT % 77.1 % L=40.0 H=80.0 05/31/2024 10:35 LYMPH % 14.9 % L=10.0 H=50.0 05/31/2024 10:35 MONO % 6.9 % L=2.0 H=12.0 05/31/2024 10:35 EOS % 0.3 % L=0.0 H=8.0 05/31/2024 10:35 BASO % 0.4 % L=0.0 H=3.0 05/31/2024 10:35 IG % 0.4 % L=0.0 H=1.1 05/31/2024 10:35 NRBC % 0.0 % L=0.0 H=0.0 05/31/2024 10:35 NEUT abs count 7.7 th/cmm L=1.6 H=8.4 05/31/2024 10:35 LYMPH abs count 1.5 th/cmm L=1.5 H=4.0 05/31/2024 10:35 MONO abs count 0.7 th/cmm L=0.2 H=1.0 05/31/2024 10:35 EOS abs count 0.0 th/cmm L=0.0 H=0.5 05/31/2024 10:35 BASO abs count 0.0 th/cmm L=0.0 H=0.2 05/31/2024 10:35 IG abs count 0.0 th/cmm L=0.0 H=0.1 05/31/2024 10:35 NRBC abs count 0.0 mil/cmm L=0.0 H=0.0 05/31/2024 10:35 RBC 4.36 mil/cmm L=4.30 H=6.20 05/31/2024 10:35 HEMOGLOBIN 12.8 L gm/dL L=13.0 H=17.0 05/31/2024 10:35 HEMATOCRIT 39 L % L=45 H=52 05/31/2024 10:35 MCV 88 fL L=82 H=92 05/31/2024 10:35 MCH 29.4 pg L=27.0 H=31.0 05/31/2024 10:35 MCHC 33.2 % L=32.0 H=36.0 05/31/2024 10:35 RDW-SD 42.5 fL L=39.0 H=49.0 05/31/2024 10:35 PLATELET COUNT 261 th/cmm L=150 H=450 05/31/2024 10:35 GLUCOSE 109 mg/dL L=70 H=116 05/31/2024 10:35 BUN 17 mg/dL L=9 H=20 05/31/2024 10:35 CREATININE 1.03 mg/dL L=0.60 H=1.25 05/31/2024 10:35 SODIUM SERUM 141 mmol/L L=136 H=145 05/31/2024 10:35 POTASSIUM SERUM 4.1 mmol/L L=3.4 H=5.2 05/31/2024 10:35 CHLORIDE SERUM 100 mmol/L L=98 H=107 05/31/2024 10:35 CARBON DIOXIDE (CO2) 30 mmol/L L=22 H=30 05/31/2024 10:35 ANION GAP 11.4 mmol/L 05/31/2024 10:35 CALCIUM SERUM 9.1 mg/dL L=8.4 H=10.2 05/31/2024 10:35 BILIRUBIN TOTAL 0.3 mg/dL L=0.2 H=1.3 05/31/2024 10:35 ALK. PHOS. 79 U/L L=38 H=126 05/31/2024 10:35 SGOT (AST) 26 U/L L=17 H=59 05/31/2024 10:35 SGPT (ALT) 22 U/L L=4 H=50 05/31/2024 10:35 TOTAL PROTEIN 7.9 gm/dL L=6.0 H=8.0 05/31/2024 10:35 ALBUMIN 4.4 gm/dL L=3.4 H=5.0 05/31/2024 10:35 AGE 44 years 05/31/2024 10:35 eGFR (non-Afr.Amer.) 78 mL/min 05/31/2024 10:35 eGFR (Afr-Cuban) 95 mL/min 05/31/2024 10:35 SED. RATE 35 H mm/hr L=0 H=15 05/31/2024 10:35 Imaging: XR Chest 05/31/24: The cardiomediastinal silhouette is within normal limits The lungs are clear. No pleural effusion or pneumothorax There is convex right scoliosis centered in the midthoracic spine IMPRESSION: No acute pulmonary findings Assessment/Plan Problem List Stroke Aortic regurgitation Mitral regurgitation Bacteremia Bacteremia Blood cultures drawn yesterday with all four bottles positive for gram positive cocci Vancomycin and cefazolin Repeat blood cultures tomorrow Hx stroke Initially thought to be cardioembolic, patient placed on apixaban at discharge. No events/afib on Holter monitor, negative PERI on 04/28/24. New positive blood cultures raise the question of septic emboli. Discontinue aspirin, atorvastatin Continue home medications as prescribed with exceptions and additions noted above. Estimated length of stay greater than two midnights for treatment of bacteremia Ordered Meds List SENNA CONC TABLET: 8.6MG, PRN DAILY MILK OF MAGNESIA SUSP UD: 2400MG/30ML, PRN DAILY BISACODYL SUPPOSITORY: 10MG, PRN DAILY POLYETHYLENE GLYCOL PACKET 3350:17GM, PRN DAILY SODIUM CHLORIDE 0.9% FLUSH 10ML SYRINGE, Q8H ACETAMINOPHEN TABLET: 325MG, PRN Q4H ACETAMINOPHEN INJ IVPB: 1000MG/100ML, PRN Q6H CALCIUM CARBONATE TAB CHEWABLE UD: 500MG, PRN Q2H ONDANSETRON INJ SDV: 4MG/2ML, PRN Q4H VANCOMYCIN DOSE AND LEVELS PER PHARMACY, X1 CeFAZolin IVPB FROZEN PREMIX: 2GM/100ML, Q8H LORazepam TABLET: 0.5MG, PRN DAILY VANCOMYCIN IVPB:1GM/250ML, Q12H Progress Notes [facility] 06/05/2024 13:04 neuro prog note: doing well, mild headache , no new neuro sx. exam stable, no new findings, no meningismus, no drift. will have pick line placed soon then, 4-6 weeks/ longer of IV abx for disc infection and endocarditis ( scammon bay valve). [facility] 06/06/2024 19:08 06/06/2024, 19:07 SUBJECTIVE: 44-year-old male with a medical history significant for aortic regurgitation, mitral valve thickening with regurgitation, history of recent stroke 03/14/2024 to the right midbrain and right peduncle with residual mild double vision thought to be cardioembolic, presenting with positive blood cultures on outpatient labs. Patient feels much the same today, no night sweats overnight. Blood cultures growing strep parasanguinous, Sensitive to ceftriaxone and penicillin. All 4 of initial cultures are positive. Repeat cultures drawn on 06/01/2024 Now have all 4 bottles positive, left fourth 1 just today. Repeat surveillance cultures were drawn 06/03/2024, So far no growth to date. TTE And follow-up PERI revealed small mobile mass in the LVOT consistent with endocarditis. MR spine revealed evidence of osteomyelitis and discitis of T8-T9. I spoke with infectious disease over the weekend and again yesterday They recommend a 4-week course of either IV penicillin or IV ceftriaxone. Arrangements are being made for him to have ceftriaxone 2 g IV daily for a total of 4 weeks starting on the day of first negative blood culture which looks like it is going to be the cultures drawn on 06/03/2024. PICC line to be placed 5 days after first set of negative cultures, hopefully this , 06/08/2024. Allergy List No Known Allergies, Medication, Environment, Food OBJECTIVE: Vital Signs Most Recent Date/Time BP (mm/Hg) Heart Rate Resp Temp (C) SPO2% O2 Device 06/06/2024 16:35 113/64 65 16 36.7 TEMPORAL SCANNING 100 % GEN: NAD EYES: No scleral icterus NECK: supple, no LAD PULM: CTA b/l no w/r/r CV: RRR with no m/r/g appreciated ABD: soft, nontender, +BSx4 EXT: no edema NEURO: A&Ox3, 5/5 muscle strength upper and lower ext b/l. no facial droop. 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 TTE and PERI shows small (0.98cm) mobile mass in the LVOT (see above for details). ceftriaxone 2 g IV daily for a total of 4 weeks starting on the day of first negative blood culture which looks like it is going to be the cultures drawn on 06/03/2024. Culture from 06/03/2024 are still no growth. PICC line to be placed 5 days after first set of negative cultures, hopefully this , 06/08/2024. Dr Crawford spoke with CT surgery, no indication for surgery at this juncture. echocardiogram in 1 to 2 weeks to evaluate response to antibiotic therapy. Persistent bacteremia Surveillance blood cultures drawn 06/01 with 4 out of 4 bottles so far positive for gram-positive cocci- Strep para sanguinous. Surveillance cultures drawn 06/03/2024, no growth to date.. Additional surveillance cultures drawn this morning.. PICC line placement hopefully , 06/08/2024. He will need follow-up echocardiogram approximately 2 weeks after initial echo on 06/01/2024- Follow-up echocardiogram is scheduled for 06/15/2023. History of previous stroke in March, presumably septic embolus. MRI of the brain as well as follow-up CT a of the brain revealed no evidence of recurrent stroke. There is a small microhemorrhage noted on the MRI.. Osteomyelitis/discitis at T8-T9, presumed additional strep infection. Discussed with ID. At this juncture there is no indication for surgery or need for additional biopsy. Hopefully home after PICC line. [facility] 06/03/2024 16:50 06/01/2024, 20:16 SUBJECTIVE: 44-year-old male with a medical history significant for aortic regurgitation, mitral valve thickening with regurgitation, history of recent stroke 03/14/2024 to the right midbrain and right peduncle with residual mild double vision thought to be cardioembolic, presenting with positive blood cultures on outpatient labs. Patient feels much the same today, no night sweats overnight. Still awaiting culture and sensitivities from outpatient blood cultures. TTE today reveals small mobile mass in the LVOT consistent with endocarditis. MR spine today (pedning) to investigate source of bacteremia. Allergy List No Known Allergies, Medication, Environment, Food OBJECTIVE: Vital Signs Most Recent Date/Time BP (mm/Hg) Heart Rate Resp Temp (C) SPO2% O2 Device 06/01/2024 20:15 124/74 71 18 37 TEMPORAL SCANNING 100 % GEN: NAD EYES: No scleral icterus NECK: supple, no LAD PULM: CTA b/l no w/r/r CV: RRR with no m/r/g appreciated ABD: soft, nontender, +BSx4 EXT: no edema NEURO: A&Ox3, 5/5 muscle strength upper and lower ext b/l. no facial droop. Labs last 24 hours Test Results Units Reference Range Collected CRP-HIGH SENS. 50.29 H mg/L L=0.00 H=3.00 06/01/2024 06:20 WBC 8.60 th/cmm L=5.00 H=10.00 06/01/2024 06:20 HEMOGLOBIN 11.4 L gm/dL L=13.0 H=17.0 06/01/2024 06:20 HEMATOCRIT 35 L % L=45 H=52 06/01/2024 06:20 PLATELET COUNT 275 th/cmm L=150 H=450 06/01/2024 06:20 GLUCOSE 94 mg/dL L=70 H=116 06/01/2024 06:20 BUN 20 mg/dL L=9 H=20 06/01/2024 06:20 CREATININE 0.95 mg/dL L=0.60 H=1.25 06/01/2024 06:20 SODIUM SERUM 141 mmol/L L=136 H=145 06/01/2024 06:20 POTASSIUM SERUM 4.5 mmol/L L=3.4 H=5.2 06/01/2024 06:20 CHLORIDE SERUM 104 mmol/L L=98 H=107 06/01/2024 06:20 CARBON DIOXIDE (CO2) 29 mmol/L L=22 H=30 06/01/2024 06:20 ANION GAP 7.4 mmol/L 06/01/2024 06:20 CALCIUM SERUM 8.8 mg/dL L=8.4 H=10.2 06/01/2024 06:20 BILIRUBIN TOTAL <0.1 L mg/dL L=0.2 H=1.3 06/01/2024 06:20 ALK. PHOS. 67 U/L L=38 H=126 06/01/2024 06:20 SGOT (AST) 26 U/L L=17 H=59 06/01/2024 06:20 SGPT (ALT) 19 U/L L=4 H=50 06/01/2024 06:20 TOTAL PROTEIN 6.8 gm/dL L=6.0 H=8.0 06/01/2024 06:20 ALBUMIN 3.6 gm/dL L=3.4 H=5.0 06/01/2024 06:20 CULT BLOOD CULTURE 06/01/2024 06:20 CULT BLOOD CULTURE 06/01/2024 06:20 SED. 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 TTE today shows small (0.98cm) mobile mass in the LVOT (see above for details). Dr. Crawford and [facility] consulted. [facility] requested PERI to further investigate vegetation and whether debulking surgery is necessary in which case the patient may be transferred. NPO at midnight for PERI tomorrow Continue vancomycin pending culture and sensitivity from 05/30 Surveillance blood cultures draw today [facility] 06/07/2024 14:57 06/07/2024, 14:43 44-year-old male with a medical history significant for aortic regurgitation, mitral valve thickening with regurgitation, history of recent stroke 03/14/2024 to the right midbrain and right peduncle with residual mild double vision thought to be cardioembolic, presenting with positive blood cultures on outpatient labs. Patient feels much the same today, no night sweats overnight. Blood cultures growing strep parasanguinous, Sensitive to ceftriaxone and penicillin. All 4 of initial cultures are positive. Repeat cultures drawn on 06/01/2024 Now have all 4 bottles positive, left fourth 1 just today. Repeat surveillance cultures were drawn 06/03/2024, So far no growth to date. Though gram stain positive. Cultures from 06/05 negative to date. TTE and follow-up PERI revealed small mobile mass in the LVOT consistent with endocarditis. MR spine revealed evidence of osteomyelitis and discitis of T8-T9. I spoke with infectious disease over the weekend and again yesterday They recommend a 4-week course of either IV penicillin or IV ceftriaxone. Arrangements are being made for him to have ceftriaxone 2 g IV daily for a total of 4 weeks starting on the day of first negative blood culture which looks like it is going to be the cultures drawn on 06/03/2024. PICC line to be placed 5 days after first set of negative cultures, hopefully this , 06/08/2024. Ordered Meds Table Ordered Medication Start Date/Time Dosage Route Frequency SENNA CONC TABLET: 8.6MG 05/31/2024 13:45 8.6 MG ORAL PRN DAILY MILK OF MAGNESIA SUSP UD: 2400MG/30ML 05/31/2024 13:45 30 ML ORAL PRN DAILY BISACODYL SUPPOSITORY: 10MG 05/31/2024 13:45 10 MG RECTALLY PRN DAILY POLYETHYLENE GLYCOL PACKET 3350:17GM 05/31/2024 13:45 17 GRAMS ORAL PRN DAILY SODIUM CHLORIDE 0.9% FLUSH 10ML SYRINGE 05/31/2024 13:45 2 ML IV PUSH Q8H ACETAMINOPHEN TABLET: 325MG 05/31/2024 13:45 650 MG ORAL PRN Q4H ACETAMINOPHEN INJ IVPB: 1000MG/100ML 05/31/2024 13:45 400 ml/hr IV PIGGYBACK PRN Q6H CALCIUM CARBONATE TAB CHEWABLE UD: 500MG 05/31/2024 13:45 1000 MG CHEW PRN Q2H ONDANSETRON INJ SDV: 4MG/2ML 05/31/2024 13:45 4 MG IV PUSH PRN Q4H LORazepam TABLET: 0.5MG 05/31/2024 14:02 0.5 MG ORAL PRN DAILY LamoTRIgine TABLET: 100MG 05/31/2024 20:30 200 MG ORAL BID CefTRIAXone IVPB: 2GM/50ML 06/07/2024 15:00 100 ml/hr IV PIGGYBACK Q24H Vital Signs Most Recent Date/Time BP (mm/Hg) Heart Rate Resp Temp (C) SPO2% O2 Device 06/07/2024 11:20 138/71 82 22 36.8 TEMPORAL SCANNING 97 % Room Air 21% GEN: NAD EYES: No scleral icterus NECK: supple, no LAD PULM: Clear to auscultation. CV: RRR with no murmurs. ABD: soft, nontender, +BSx4 EXT: no edema NEURO: A&Ox3, 5/5 muscle strength upper and lower ext b/l. no facial droop. Problem List Stroke Aortic regurgitation Mitral regurgitation Bacteremia Infective endocarditis PLAN: Reviewed below - no changes. Infective endocarditis Blood cultures positive for gram positive cocci, Identified as strep parasanguinous.. TTE and PERI shows small (0.98cm) mobile mass in the LVOT (see above for details). ceftriaxone 2 g IV daily for a total of 4 weeks starting on the day of first negative blood culture which looks like it is going to be the cultures drawn on 06/03/2024. Culture from 06/03/2024 are still no growth. PICC line to be placed 5 days after first set of negative cultures, hopefully this , 06/08/2024. Dr Crawford spoke with CT surgery, no indication for surgery at this juncture. echocardiogram in 1 to 2 weeks to evaluate response to antibiotic therapy. Persistent bacteremia Surveillance blood cultures drawn 06/01 with 4 out of 4 bottles so far positive for gram-positive cocci- Strep para sanguinous. Surveillance cultures drawn 06/03/2024, no growth to date.. Additional surveillance cultures drawn this morning.. PICC line placement hopefully , 06/08/2024. He will need follow-up echocardiogram approximately 2 weeks after initial echo on 06/01/2024- Follow-up echocardiogram is scheduled for 06/15/2023. History of previous stroke in March, presumably septic embolus. MRI of the brain as well as follow-up CT a of the brain revealed no evidence of recurrent stroke. There is a small microhemorrhage noted on the MRI.. Osteomyelitis/discitis at T8-T9, presumed additional strep infection. Discussed with ID. At this juncture there is no indication for surgery or need for additional biopsy. Hopefully home after PICC line. [facility] 06/02/2024 14:58 06/02/2024, 14:53 SUBJECTIVE: 44-year-old male with a medical history significant for aortic regurgitation, mitral valve thickening with regurgitation, history of recent stroke 03/14/2024 to the right midbrain and right peduncle with residual mild double vision thought to be cardioembolic, presenting with positive blood cultures on outpatient labs. Patient feels much the same today, no night sweats overnight. Still awaiting culture and sensitivities from outpatient blood cultures. TTE yesterday And follow-up PERI today reveals small mobile mass in the LVOT consistent with endocarditis. MR spine Yesterday revealed evidence of osteomyelitis and discitis of T8-T9. Repeat blood cultures drawn yesterday on 06/01/2024 are growing gram-positive cocci in 1 out of 4 bottles so far. Allergy List No Known Allergies, Medication, Environment, Food OBJECTIVE: Vital Signs Most Recent Date/Time BP (mm/Hg) Heart Rate Resp Temp (C) SPO2% O2 Device 06/02/2024 11:16 124/73 75 18 36.6 TEMPORAL SCANNING 100 % Room Air 21% GEN: NAD EYES: No scleral icterus NECK: supple, no LAD PULM: CTA b/l no w/r/r CV: RRR with no m/r/g appreciated ABD: soft, nontender, +BSx4 EXT: no edema NEURO: A&Ox3, 5/5 muscle strength upper and lower ext b/l. no facial droop. Labs last 24 hours Test Results Units Reference Range Collected VANCOMYCIN 11.8 ug/mL 06/02/2024 06:32 ASSESSMENT: Problem List Stroke Aortic regurgitation Mitral regurgitation Bacteremia Infective endocarditis PLAN: Infective endocarditis Blood cultures positive for gram positive cocci, Identified as strep para sanguinous.. TTE Yesterday and PERI today shows small (0.98cm) mobile mass in the LVOT (see above for details). Discussed with infectious disease at [facility] who agrees with continuing the ceftriaxone and vancomycin for now pending sensitivities. He will then likely be transition to either penicillin or ceftriaxone 2 g IV every [address] Crawford will speak with CT surgery. However, it is unlikely that surgery will be necessary at this juncture. Likely will obtain follow-up echocardiogram in 1 to 2 weeks to evaluate response to antibiotic therapy. Persistent bacteremia Surveillance blood cultures draw Yesterday with 1 out of 4 bottles so far positive for gram-positive cocci. Will repeat surveillance blood cultures tomorrow on 06/03/2024. Patient will need PICC line once it is confirmed that his bacteremia has resolved. History of previous stroke in March, presumably septic embolus. Dr Sabillon recommends follow-up MRI of the brain as well as follow-up CT a of the brain. Osteomyelitis/discitis at T8-T9, presumed additional strep infection. Discussed with ID. At this juncture there is no indication for surgery or need for additional biopsy. [facility] 06/04/2024 11:04 neuro f/u Date/Time BP (mm/Hg) Heart Rate Resp Temp (C) SPO2% O2 Device 06/04/2024 03:38 118/55 73 16 37.4 TEMPORAL 98 % Room Air 21% 06/03/2024 23:12 124/58 74 16 37.1 TEMPORAL 99 % Room Air 21% 06/03/2024 19:49 118/63 82 16 38 TEMPORAL 98 % Room Air 21% 06/03/2024 15:34 116/65 80 20 37.3 TEMPORAL SCANNING 99 % Room Air 21% mariano has a mild headache, no other sx . exam and neuro exam unchanged, no new deficits. gait normal continuing abx for [place] valvular endocardidts and discitis with small br stem cva and small rigth cerebral micrbleed.. [facility] 06/03/2024 09:52 neuro progress note. mariano is constipated this am after some nausea ;ast night that he received meds for, he denies any new neuro sx , no headache, confusion, no seizures neck pain, spine pain. 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 today, his wbc went up mildly with w/ shift and the CRP decreased ( was in 50's 2 days ago). sed rate went up to 45... discussed with dr christensen. Lab Results: Last 24 Hours Test Results Units Reference Range Ordered Collected Status GLUCOSE 97 mg/dL L=70 H=116 06/03/2024 07:00 06/03/2024 06:30 final BUN 16 mg/dL L=9 H=20 06/03/2024 07:00 06/03/2024 06:30 final CREATININE 0.75 mg/dL L=0.60 H=1.25 06/03/2024 07:00 06/03/2024 06:30 final SODIUM SERUM 141 mmol/L L=136 H=145 06/03/2024 07:00 06/03/2024 06:30 final POTASSIUM SERUM 4.3 mmol/L L=3.4 H=5.2 06/03/2024 07:00 06/03/2024 06:30 final CHLORIDE SERUM 106 mmol/L L=98 H=107 06/03/2024 07:00 06/03/2024 06:30 final CARBON DIOXIDE (CO2) 28 mmol/L L=22 H=30 06/03/2024 07:00 06/03/2024 06:30 final ANION GAP 7.8 mmol/L 06/03/2024 07:00 06/03/2024 06:30 final CALCIUM SERUM 8.4 mg/dL L=8.4 H=10.2 06/03/2024 07:00 06/03/2024 06:30 final AGE 44 years 06/03/2024 07:00 06/03/2024 06:30 final eGFR (non-Afr.Amer.) 113 mL/min 06/03/2024 07:00 06/03/2024 06:30 final eGFR (Afr-Cuban) >120 mL/min 06/03/2024 07:00 06/03/2024 06:30 final CRP-HIGH SENS. 16.89 H mg/L L=0.00 H=3.00 06/03/2024 00:00 06/03/2024 06:30 final WBC 10.55 H th/cmm L=5.00 H=10.00 06/03/2024 07:00 06/03/2024 06:30 final NEUT % 84.3 H % L=40.0 H=80.0 06/03/2024 07:00 06/03/2024 06:30 final LYMPH % 9.1 L % L=10.0 H=50.0 06/03/2024 07:00 06/03/2024 06:30 final MONO % 4.6 % L=2.0 H=12.0 06/03/2024 07:00 06/03/2024 06:30 final EOS % 1.3 % L=0.0 H=8.0 06/03/2024 07:00 06/03/2024 06:30 final BASO % 0.3 % L=0.0 H=3.0 06/03/2024 07:00 06/03/2024 06:30 final IG % 0.4 % L=0.0 H=1.1 06/03/2024 07:00 06/03/2024 06:30 final NRBC % 0.0 % L=0.0 H=0.0 06/03/2024 07:00 06/03/2024 06:30 final NEUT abs count 8.9 H th/cmm L=1.6 H=8.4 06/03/2024 07:00 06/03/2024 06:30 final LYMPH abs count 1.0 L th/cmm L=1.5 H=4.0 06/03/2024 07:00 06/03/2024 06:30 final MONO abs count 0.5 th/cmm L=0.2 H=1.0 06/03/2024 07:00 06/03/2024 06:30 final EOS abs count 0.1 th/cmm L=0.0 H=0.5 06/03/2024 07:00 06/03/2024 06:30 final BASO abs count 0.0 th/cmm L=0.0 H=0.2 06/03/2024 07:00 06/03/2024 06:30 final IG abs count 0.0 th/cmm L=0.0 H=0.1 06/03/2024 07:00 06/03/2024 06:30 final NRBC abs count 0.0 mil/cmm L=0.0 H=0.0 06/03/2024 07:00 06/03/2024 06:30 final RBC 4.01 L mil/cmm L=4.30 H=6.20 06/03/2024 07:00 06/03/2024 06:30 final HEMOGLOBIN 11.4 L gm/dL L=13.0 H=17.0 06/03/2024 07:00 06/03/2024 06:30 final HEMATOCRIT 35 L % L=45 H=52 06/03/2024 07:00 06/03/2024 06:30 final MCV 87 fL L=82 H=92 06/03/2024 07:00 06/03/2024 06:30 final MCH 28.4 pg L=27.0 H=31.0 06/03/2024 07:00 06/03/2024 06:30 final MCHC 32.6 % L=32.0 H=36.0 06/03/2024 07:00 06/03/2024 06:30 final RDW-SD 42.0 fL L=39.0 H=49.0 06/03/2024 07:00 06/03/2024 06:30 final PLATELET COUNT 268 th/cmm L=150 H=450 06/03/2024 07:00 06/03/2024 06:30 final CREATININE 0.75 mg/dL L=0.60 H=1.25 06/03/2024 00:00 06/03/2024 06:30 final AGE 44 years 06/03/2024 00:00 06/03/2024 06:30 final eGFR (non-Afr.Amer.) 113 mL/min 06/03/2024 00:00 06/03/2024 06:30 final eGFR (Afr-Cuban) >120 mL/min 06/03/2024 00:00 06/03/2024 06:30 final CULT BLOOD CULTURE 06/03/2024 00:00 06/03/2024 06:30 registered SED. RATE 43 H mm/hr L=0 H=15 06/03/2024 07:00 06/03/2024 06:30 final VANCOMYCIN 14.0 ug/mL 06/03/2024 00:00 06/03/2024 06:30 final Most Recent Vital Signs BP (mm/Hg) BP Position/Site MAP (mm/Hg) Heart Rate Resp Temp (C) Temp (F) SPO2% O2 Device Pain Score Height (cm) Height (in) Weight (kg) Weight (lbs/ozs) 124/71 LYING/R ARM 89 75 22 36.9 TEMPORAL SCANNING 98.4 TEMPORAL SCANNING 98 % Room Air 21% 6 195.6 cm 77 in 79.7 kg 175.11 Ordered Meds Table Ordered Medication Start Date/Time Dosage Route Frequency SENNA CONC TABLET: 8.6MG 05/31/2024 13:45 8.6 MG ORAL PRN DAILY MILK OF MAGNESIA SUSP UD: 2400MG/30ML 05/31/2024 13:45 30 ML ORAL PRN DAILY BISACODYL SUPPOSITORY: 10MG 05/31/2024 13:45 10 MG RECTALLY PRN DAILY POLYETHYLENE GLYCOL PACKET 3350:17GM 05/31/2024 13:45 17 GRAMS ORAL PRN DAILY SODIUM CHLORIDE 0.9% FLUSH 10ML SYRINGE 05/31/2024 13:45 2 ML IV PUSH Q8H ACETAMINOPHEN TABLET: 325MG 05/31/2024 13:45 650 MG ORAL PRN Q4H ACETAMINOPHEN INJ IVPB: 1000MG/100ML 05/31/2024 13:45 400 ml/hr IV PIGGYBACK PRN Q6H CALCIUM CARBONATE TAB CHEWABLE UD: 500MG 05/31/2024 13:45 1000 MG CHEW PRN Q2H ONDANSETRON INJ SDV: 4MG/2ML 05/31/2024 13:45 4 MG IV PUSH PRN Q4H LORazepam TABLET: 0.5MG 05/31/2024 14:02 0.5 MG ORAL PRN DAILY LamoTRIgine TABLET: 100MG 05/31/2024 20:30 200 MG ORAL BID CefTRIAXone IVPB: 2GM/50ML 06/01/2024 22:59 100 ml/hr IV PIGGYBACK Q24H VANCOMYCIN IVPB: 1.5GM 06/02/2024 12:00 200 ml/hr IV PIGGYBACK Q12H exam is neg today. no altered mentation, no new focal neuro findings. no meningismus he has some photophobia tho risk of pricing specialist complications/ additional cva maximum during first week of abx therapy. any change in neuro status warrants emergent brain image ct mri.. some would consider a valve with 1 cm vegetation and pricing specialist emboli a candidate for surgical repair after a number of weeks of abx.. the cva is small... cardiology has been in conversation with CT surgery at [facility].. will follow exam he is not on any antiplatelets nor anticoagulants, appropriately [facility] 06/07/2024 11:51 neuro Ordered Meds List SENNA CONC TABLET: 8.6MG, PRN DAILY MILK OF MAGNESIA SUSP UD: 2400MG/30ML, PRN DAILY BISACODYL SUPPOSITORY: 10MG, PRN DAILY POLYETHYLENE GLYCOL PACKET 3350:17GM, PRN DAILY SODIUM CHLORIDE 0.9% FLUSH 10ML SYRINGE, Q8H ACETAMINOPHEN TABLET: 325MG, PRN Q4H ACETAMINOPHEN INJ IVPB: 1000MG/100ML, PRN Q6H CALCIUM CARBONATE TAB CHEWABLE UD: 500MG, PRN Q2H ONDANSETRON INJ SDV: 4MG/2ML, PRN Q4H LORazepam TABLET: 0.5MG, PRN DAILY LamoTRIgine TABLET: 100MG, BID CefTRIAXone IVPB: 2GM/50ML, Q24H Date/Time BP (mm/Hg) Heart Rate Resp Temp (C) SPO2% O2 Device 06/07/2024 11:20 138/71 82 22 36.8 TEMPORAL SCANNING 97 % Room Air 21% 06/07/2024 08:15 102/55 64 20 36.9 TEMPORAL SCANNING 99 % Room Air 21% 06/07/2024 04:48 113/61 65 16 37.2 TEMPORAL SCANNING 98 % Room Air 21% 06/07/2024 00:02 122/58 76 16 36.7 TEMPORAL SCANNING 97 % Room Air 21% 06/06/2024 19:41 119/64 64 18 37.2 TEMPORAL 97 % 06/06/2024 16:35 113/64 65 16 36.7 TEMPORAL SCANNING 100 % mariano feels very close to his normal baseline. no new neuro sx, no headache, no neck pain. neuro exam non focal. pending latest blood cultures, if neg, he will have pick line and continue abx from home. no seizures on lamotrigine. i will be seeing him in [place] in jul or earlier. [facility] 06/01/2024 00:35 Admitted with high grade GPC bacteremia of unknown source d/c cefazolin, continue vanc MRI of spine consider consulting with Dr. Crawford for repeat PERI Patient made NPO Consider ID consultation pending source discovery or for advice if no obvious source ascertained Repeat BCx in AM and subsequently until clear [facility] 06/03/2024 10:08 06/03/2024, 10:04 SUBJECTIVE: 44-year-old male with a medical history significant for aortic regurgitation, mitral valve thickening with regurgitation, history of recent stroke 03/14/2024 to the right midbrain and right peduncle with residual mild double vision thought to be cardioembolic, presenting with positive blood cultures on outpatient labs. Patient feels much the same today, no night sweats overnight. Blood cultures growing strep para sanguinous, Sensitivities pending. All 4 of initial cultures are positive. Repeat cultures drawn on 06/01/2024 have 1 bottle turning positive. Repeat surveillance cultures were drawn this morning. TTE And follow-up PERI revealed small mobile mass in the LVOT consistent with endocarditis. MR spine revealed evidence of osteomyelitis and discitis of T8-T9. Allergy List No Known Allergies, Medication, Environment, Food OBJECTIVE: Vital Signs Most Recent Date/Time BP (mm/Hg) Heart Rate Resp Temp (C) SPO2% O2 Device 06/03/2024 07:25 124/71 75 22 36.9 TEMPORAL SCANNING 98 % Room Air 21% GEN: NAD EYES: No scleral icterus NECK: supple, no LAD PULM: CTA b/l no w/r/r CV: RRR with no m/r/g appreciated ABD: soft, nontender, +BSx4 EXT: no edema NEURO: A&Ox3, 5/5 muscle strength upper and lower ext b/l. no facial droop. Labs last 24 hours Test Results Units Reference Range Collected GLUCOSE 97 mg/dL L=70 H=116 06/03/2024 06:30 BUN 16 mg/dL L=9 H=20 06/03/2024 06:30 CREATININE 0.75 mg/dL L=0.60 H=1.25 06/03/2024 06:30 SODIUM SERUM 141 mmol/L L=136 H=145 06/03/2024 06:30 POTASSIUM SERUM 4.3 mmol/L L=3.4 H=5.2 06/03/2024 06:30 CHLORIDE SERUM 106 mmol/L L=98 H=107 06/03/2024 06:30 CARBON DIOXIDE (CO2) 28 mmol/L L=22 H=30 06/03/2024 06:30 ANION GAP 7.8 mmol/L 06/03/2024 06:30 CALCIUM SERUM 8.4 mg/dL L=8.4 H=10.2 06/03/2024 06:30 CRP-HIGH SENS. 16.89 H mg/L L=0.00 H=3.00 06/03/2024 06:30 WBC 10.55 H th/cmm L=5.00 H=10.00 06/03/2024 06:30 HEMOGLOBIN 11.4 L gm/dL L=13.0 H=17.0 06/03/2024 06:30 HEMATOCRIT 35 L % L=45 H=52 06/03/2024 06:30 PLATELET COUNT 268 th/cmm L=150 H=450 06/03/2024 06:30 CREATININE 0.75 mg/dL L=0.60 H=1.25 06/03/2024 06:30 CULT BLOOD CULTURE 06/03/2024 06:30 SED. 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 TTE and PERI shows small (0.98cm) mobile mass in the LVOT (see above for details). Discussed with infectious disease at [facility] who agrees with continuing the ceftriaxone and vancomycin for now pending sensitivities. He will then likely be transition to either penicillin or ceftriaxone 2 g IV every [address] Crawford spoke with CT surgery, no indication for surgery at this juncture. echocardiogram in 1 to 2 weeks to evaluate response to antibiotic therapy. Persistent bacteremia Surveillance blood cultures drawn 06/01 with 1 out of 4 bottles so far positive for gram-positive cocci. Surveillance cultures drawn today. Patient will need PICC line once it is confirmed that his bacteremia has resolved. History of previous stroke in March, presumably septic embolus. MRI of the brain as well as follow-up CT a of the brain Performed yesterday revealed no evidence of recurrent stroke. There is a small microhemorrhage noted on the MRI.. Osteomyelitis/discitis at T8-T9, presumed additional strep infection. Discussed with ID. At this juncture there is no indication for surgery or need for additional biopsy. [facility] 06/04/2024 16:26 06/04/2024, 16:23 SUBJECTIVE: 44-year-old male with a medical history significant for aortic regurgitation, mitral valve thickening with regurgitation, history of recent stroke 03/14/2024 to the right midbrain and right peduncle with residual mild double vision thought to be cardioembolic, presenting with positive blood cultures on outpatient labs. Patient feels much the same today, no night sweats overnight. Blood cultures growing strep para sanguinous, Sensitivities pending. All 4 of initial cultures are positive. Repeat cultures drawn on 06/01/2024 have 2 bottles turning positive. Repeat surveillance cultures were drawn Yesterday morning, So far no growth to date. TTE And follow-up PERI revealed small mobile mass in the LVOT consistent with endocarditis. MR spine revealed evidence of osteomyelitis and discitis of T8-T9. Allergy List No Known Allergies, Medication, Environment, Food OBJECTIVE: Vital Signs Most Recent Date/Time BP (mm/Hg) Heart Rate Resp Temp (C) SPO2% O2 Device 06/04/2024 11:30 123/68 72 17 36.9 TEMPORAL SCANNING 100 % GEN: NAD EYES: No scleral icterus NECK: supple, no LAD PULM: CTA b/l no w/r/r CV: RRR with no m/r/g appreciated ABD: soft, nontender, +BSx4 EXT: no edema NEURO: A&Ox3, 5/5 muscle strength upper and lower ext b/l. no facial droop. Labs last 24 hours Test Results Units Reference Range Collected VANCOMYCIN 19.0 ug/mL 06/04/2024 06:35 ASSESSMENT: Problem List Stroke Aortic regurgitation Mitral regurgitation Bacteremia Infective endocarditis PLAN: Infective endocarditis Blood cultures positive for gram positive cocci, Identified as strep parasanguinous.. TTE and PERI shows small (0.98cm) mobile mass in the LVOT (see above for details). Discussed with infectious disease at [facility] who agrees with continuing the ceftriaxone and vancomycin for now pending sensitivities. He will then likely be transition to either penicillin or ceftriaxone 2 g IV every [address] Crawford spoke with CT surgery, no indication for surgery at this juncture. echocardiogram in 1 to 2 weeks to evaluate response to antibiotic therapy. Persistent bacteremia Surveillance blood cultures drawn 06/01 with 2 out of 4 bottles so far positive for gram-positive cocci. Surveillance cultures drawn Yesterday, soft on arrival today. Will draw additional blood cultures tomorrow morning.. Patient will need PICC line once it is confirmed that his bacteremia has resolved. History of previous stroke in March, presumably septic embolus. MRI of the brain as well as follow-up CT a of the brain Performed yesterday revealed no evidence of recurrent stroke. There is a small microhemorrhage noted on the MRI.. Osteomyelitis/discitis at T8-T9, presumed additional strep infection. Discussed with ID. At this juncture there is no indication for surgery or need for additional biopsy. [facility] 06/05/2024 16:46 06/05/2024, 16:40 SUBJECTIVE: 44-year-old male with a medical history significant for aortic regurgitation, mitral valve thickening with regurgitation, history of recent stroke 03/14/2024 to the right midbrain and right peduncle with residual mild double vision thought to be cardioembolic, presenting with positive blood cultures on outpatient labs. Patient feels much the same today, no night sweats overnight. Blood cultures growing strep parasanguinous, Sensitive to ceftriaxone and penicillin. All 4 of initial cultures are positive. Repeat cultures drawn on 06/01/2024 Now have all 4 bottles positive, left fourth 1 just today. Repeat surveillance cultures were drawn 06/03/2024, So far no growth to date. TTE And follow-up PERI revealed small mobile mass in the LVOT consistent with endocarditis. MR spine revealed evidence of osteomyelitis and discitis of T8-T9. I spoke with infectious disease over the weekend and again today. They recommend a 4-week course of either IV penicillin or IV ceftriaxone. Arrangements are being made for him to have ceftriaxone 2 g IV daily for a total of 4 weeks starting on the day of first negative blood culture which looks like it is going to be the cultures drawn on 06/03/2024. PICC line to be placed 5 days after first set of negative cultures, hopefully this , 06/08/2024. Allergy List No Known Allergies, Medication, Environment, Food OBJECTIVE: Vital Signs Most Recent Date/Time BP (mm/Hg) Heart Rate Resp Temp (C) SPO2% O2 Device 06/05/2024 11:30 124/73 71 21 36.4 TEMPORAL SCANNING 100 % Room Air 21% GEN: NAD EYES: No scleral icterus NECK: supple, no LAD PULM: CTA b/l no w/r/r CV: RRR with no m/r/g appreciated ABD: soft, nontender, +BSx4 EXT: no edema NEURO: A&Ox3, 5/5 muscle strength upper and lower ext b/l. no facial droop. Labs last 24 hours Test Results Units Reference Range Collected GLUCOSE 86 mg/dL L=70 H=116 06/05/2024 06:53 BUN 19 mg/dL L=9 H=20 06/05/2024 06:53 CREATININE 0.89 mg/dL L=0.60 H=1.25 06/05/2024 06:53 SODIUM SERUM 140 mmol/L L=136 H=145 06/05/2024 06:53 POTASSIUM SERUM 3.9 mmol/L L=3.4 H=5.2 06/05/2024 06:53 CHLORIDE SERUM 104 mmol/L L=98 H=107 06/05/2024 06:53 CARBON DIOXIDE (CO2) 28 mmol/L L=22 H=30 06/05/2024 06:53 ANION GAP 8.6 mmol/L 06/05/2024 06:53 CALCIUM SERUM 8.5 mg/dL L=8.4 H=10.2 06/05/2024 06:53 CRP-HIGH SENS. 18.16 H mg/L L=0.00 H=3.00 06/05/2024 06:53 WBC 6.07 th/cmm L=5.00 H=10.00 06/05/2024 06:53 HEMOGLOBIN 12.0 L gm/dL L=13.0 H=17.0 06/05/2024 06:53 HEMATOCRIT 37 L % L=45 H=52 06/05/2024 06:53 PLATELET COUNT 244 th/cmm L=150 H=450 06/05/2024 06:53 CULT BLOOD CULTURE 06/05/2024 06:53 VANCOMYCIN 20.9 ug/mL 06/05/2024 06:53 CULT BLOOD CULTURE 06/05/2024 06:46 ASSESSMENT: Problem List Stroke Aortic regurgitation Mitral regurgitation Bacteremia Infective endocarditis PLAN: Infective endocarditis Blood cultures positive for gram positive cocci, Identified as strep parasanguinous.. TTE and PERI shows small (0.98cm) mobile mass in the LVOT (see above for details). ceftriaxone 2 g IV daily for a total of 4 weeks starting on the day of first negative blood culture which looks like it is going to be the cultures drawn on 06/03/2024. PICC line to be placed 5 days after first set of negative cultures, hopefully this , 06/08/2024. Dr Crawford spoke with CT surgery, no indication for surgery at this juncture. echocardiogram in 1 to 2 weeks to evaluate response to antibiotic therapy. Persistent bacteremia Surveillance blood cultures drawn 06/01 with 4 out of 4 bottles so far positive for gram-positive cocci- Strep para sanguinous. Surveillance cultures drawn 06/03/2024, no growth to date.. Additional surveillance cultures drawn this morning.. PICC line placement hopefully , 06/08/2024. He will need follow-up echocardiogram approximately 2 weeks after initial echo on 06/01/2024- Follow-up echo should be on or around 06/15/2024-06/16/2024. History of previous stroke in March, presumably septic embolus. MRI of the brain as well as follow-up CT a of the brain revealed no evidence of recurrent stroke. There is a small microhemorrhage noted on the MRI.. Osteomyelitis/discitis at T8-T9, presumed additional strep infection. Discussed with ID. At this juncture there is no indication for surgery or need for additional biopsy. Hopefully home after PICC line.
--- OUTSIDE RECORDS SUMMARY | 2024-06-12 19:09 | XMS_ITS ---
Author Organization Unknown Address [address] [place] [phone] Phone Care Team Providers Care Waste Cotton Cleaner Name Role Phone FRANCOISE Baltazar Attending Unavailable CLYDE Baltazar Primary Unavailable Social History Type Status Start Date End Date Code Code Syst em Smoking History Never smoker (Never Smoked) 634358488 SNOMED CT Sex Male Vital Signs Vital Sign Value Unit Lynn Value Lynn Unit Date/Time Recent/Initial? Code Code System Systolic Blood Pressure 108 mm[Hg] 06/02/2024 09:28 Most Recent [facility] Diastolic Blood Pressure 60 mm[Hg] 06/02/2024 09:28 Most Recent 8462-4 [facility] Systolic Blood Pressure 118 mm[Hg] 06/02/2024 09:27 Initial 8480[facility] Diastolic Blood Pressure 68 mm[Hg] 06/02/2024 09:27 Initial 8462-4 LOINC O2 Saturation 100 % 2023 09:28 Most Recent 95848- 5 INC O2 Saturation 100 % 2023 09:27 Initial 12673- 5 [facility] Inhaled Oxygen Flow Rate 2.00 L/min 06/02/2024 09:27 Initial 3151-8 LOINC Pulse 61.0 /min 06/02/2024 09:28 Most Recent 8867-4 LOINC Pulse 67.0 /min 06/02/2024 09:27 Initial 8867-4 LOINC Respiration 12 /min 06/02/20 09:28 Most Recent 9279-1 LOINC Respiration 14 /min 06/02/20 09:27 Initial 9279-1 LOINC Temperature 2.5 Roxi 36.5 F 06/02/20 09:27 Initial 8310-5 [facility] Medications Medication Start Date End Date Route Frequency Dose Code Code System Medication Instructions Home Meds Atorvastatin Calcium 40MG Oral Tablet 03/16/2024 Unknown ORAL BEDTIME 1 TABLET 362110 RxNorm TAKE 1 TABLET ORAL BEDTIME Aspirin 81MG Oral Tablet, Enteric Coated 03/16/2024 Unknown ORAL DAILY 1 TABLET 108859 RxNorm TAKE 1 TABLET ORAL DAILY cefTRIAXone [...] Date Status Code Code System STROKE active 136941333 SNOMED-CT AORTIC REGURGITATION active 84298936 SNOMED-CT MITRAL REGURGITATION active 64945728 SNOMED-CT BACTEREMIA active 9638070 SNOMED-CT INFECTIVE ENDOCARDITIS active 1079892 07 SNOMED-CT MITRAL REGURGITATION 05/31/2024 resolved 78706952 SNOMED-CT CVA 03/29/2024 resolved 187486614 SNOMED-CT AORTIC REGURGITATION 05/31/2024 resolved 37042824 SNOMED-CT SEIZURE DISORDER 03/08/2024 resolved 141430778 SN OMED-CT Allergies and Adverse Reactions Allergy Substance Reaction Severity Start Date Concern Status Co de Code System No Known Allergies Active 305326634 SNO MED-CT Plan of Treatment US DVT BILAT 05/24/2024 LAB DRAW 15MIN 04/11/2024 LAB DRAW 15MIN 07/07/2022 LAB DRAW 15MIN 04/13/2022 Personal Care Team Section Performer Name Performer Role Active Date Inactive Landon cabello
--- OUTSIDE RECORDS SUMMARY | 2024-06-12 19:10 | XMS_ITS | Encounter Summary ---
Author Organization [facility] Address [address] [place] [address] Care Team Providers Care Drug Enforcement Agent Name Role Phone Daniel Gannon DARSHANA Primary Care Provider [phone] Reason for Referral * (Routine/Next Available) - Receiving Office to Obtain Authorization Specialty Diagnoses / Procedures Referred By Contac t Referred To Contact Procedures MR OUTSIDE IMAGES THORACIC SPINE Imaging, External Referral ID Status Reason Start Date Expiration Date Visits Requested Visits Authorized [id number] Receiving Office to Obtain Authorization 4 1 1 Reason for Visit * (Routine/Next Available) - Receiving Office to Obtain Authorization Specialty Diagnoses / Procedures Referred By Contac t Referred To Contact Procedures MR OUTSIDE IMAGES THORACIC SPINE Imaging, External Referral ID Status Reason Start Date Expiration Date Visits Requested Visits Authorized [id number] Receiving Office to Obtain Authorization 4 1 1 Encounter Details Date Type Department Care Team (Latest Contact Info) Description 06/01/2024 0:10 EST - 06/01/2024 23:59 EST Hospital Encounter [facility] Medical Center Secondary Reads [place] Discharge Disposition: Home or Self Care Social History Tobacco Use Types Packs/Day Years Used Date Smoking Tobacco: Never Passive Smoke Exposure: Never Smokeless Tobacco: Never Alcohol Use Standard Drinks/Week Comments Never 0 (1 standard drink = 0.6 oz pur e alcohol) AUDIT-C Answer Date Recorded Frequency of Alcohol Consumption Never 06/04/2019 Average Number of Drinks Not on file 019 Frequency of Binge Drinking Not on file 05/15 PHQ-2 Answer Date Recorded PHQ-2 Score 0 01/14/2020 Interpersonal Safety Answer Date Record ed Physically Hurt Never 01/14/2020 Verbally Threaten Not on file 01/14/2020 Sex and Gender Information Value Date Recorded Sex Assigned at Not on file Legal Sex Male 18:38 EST Gender Identity Not on file Sexual Orientation Not on file documented as of this encounter Functional Status * Are you deaf or do you have serious difficulty hearing? Answer Date of Assessment Author No 11/26/2016 7:43 Jose Benson RN * Are you blind or do you have serious difficulty seeing, even when wearing glasses? Answer Date of Assessment Author No 11/26/2016 7:43 Jose Benson RN * Do you have serious difficulty walking or climbing stairs? (5 years old or older) Answer Date of Assessment Author No 11/26/2016 7:43 Jose Benson RN * Do you have difficulty dressing or bathing? (5 years old or older) Answer Date of Assessment Author No 11/26/2016 7:43 Jose Benson RN * Because of a physical, mental, or emotional condition, does this person have difficulty doing errands alone such as visiting a doctor's office or shopping? Answer Date of Assessment Author Yes 05/16/2024 9:34 Jose Valero RN documented as of this encounter Mental Status * Because of a physical, mental, or emotional condition, does this person have serious difficulty concentrating, remembering, or making decisions? Answer Entry Date Author No 05/16/2024 9:34 Jose Valero RN documented in this encounter Medications at Time of Discharge aspirin chewable 81 mg tablet Take 1 Tablet by mouth daily. ELIQUIS 5 mg tablet Take 1 Tablet by mouth 2 times daily. lamoTRIgine (LAMICTAL) 200 mg tablet Take 1 Tablet by mouth 2 times daily. 10/04/2023 naproxen (NAPROSYN) 500 mg tablet Take 1-2 Tablets by mouth as needed. documented as of this encounter Discharge Disposition Disposition Code Departure Means Destination Home or Self Care documented in this encounter Plan of Treatment Upcoming Encounters Date Type Department Care Team (Late st Contact Info) Description 08/24/2024 14:15 EDT Office Visit [facility] Rheumatology & Immunology - [facility] [address], [place] [phone] Chantel Juan MD [address] [place], [place] [phone] documented as of this encounter Procedures Procedure Name Priority Date/Time Associated Diagnosis Comments MR OUTSIDE IMAGES THORACIC SPINE Routine 06/01/2024 12:04 EST documented in this encounter Results * MR OUTSIDE IMAGES THORACIC SPINE (06/01/2024 12:04 EST) Narrative 06/02/2024 12:04 EST This is a non-reportable exam. us External Imaging IMG OTHER IMAGING ORDERABLES Fi nal Result documented in this encounter Visit Diagnoses Not on filedocumented in this encounter Care Teams Drug Enforcement Agent Relationship Specialty Start Date End Date Daniel Gannon ND [address] [place] [address] [place] [address] PCP - General Naturopathic Medicine 05/16/24 documented as of this encounter
--- OUTSIDE RECORDS SUMMARY | 2024-06-12 19:10 | XMS_ITS | Encounter Summary ---
Author Organization [facility] Address [address] [place] [address] Care Team Providers Care Software Sales Name Role Phone Daniel Gannon ND Primary Care Provider [phone] Encounter Details Date Type Department Care Team (Late st Contact Info) Description 05/25/2024 Lab Requisition [facility] Pathology & Laboratory Medicine - [address] [address] Outr Resulting Lab, Provider Social History Tobacco Use Types Packs/Day Years [...] Date of Assessment Author No 11/26/2016 7:43 EDT Jose Medrano, RN * Are you blind or do [...] Jose Valero RN documented in this encounter Plan of Treatment Upcoming Encounters Date Type Department Care Team (Late st Contact Info) Description 08/24/2024 14:15 EDT Office Visit [facility] Rheumatology & Immunology - [facility] [address] [place], [place] [phone] Chantel Juan MD [address] [place], [place] [phone] documented as of this encounter Procedures Procedure Name Priority Date/Time Associated Diagnosis Comments FOLATE Routine 05/22/2024 12:41 EST documented in this encounter Results * FOLATE (05/22/2024 12:41 EST) Folate 5.7 See Note ng/mL 05/25/2024 22:36 EST [facility] Comment: Reference Ranges for Folate: Deficient: ?< 3.4 ng/mL Indeterminate: ??3.4 - 5.4 ng/mL Normal: ? > 5.4 ng/mL The results of this assay can be falsely elevated due to the consumption of Biotin. Blood VENOUS BLOOD / Unknown 05/22/2024 12:41 EST 05/25/2024 21:33 EST us Provider Outr Resulting Lab CHEMISTRY & BLOOD GA S ORDERABLES Final Result Performing Organization Address City/State/[facility] Co de Phone Number [facility] [address] [place], [place] [phone] documented in this encounter Visit Diagnoses Not on filedocumented in this encounter Care Teams Software Sales Relationship Specialty Start Date End Date Daniel Gannon ND [address] [place] [address] [place] [address] PCP - General Naturopathic Medicine 05/16/24 documented as of this encounter
--- OUTSIDE RECORDS SUMMARY | 2024-06-12 19:10 | XMS_ITS | Encounter Summary ---
Author Organization [facility] Address [address] [place] [address] Care Team Providers Care Organ Installer Name Role Phone Daniel Gannon ND Primary Care Provider [phone] Encounter Details Date Type Department Care Team (Late st Contact Info) Description 05/22/2024 Lab Requisition [facility] Pathology & Laboratory Medicine - [address] [address] Outr Resulting Lab, Provider Social History Tobacco [...] Info) Description 08/24/2024 14:15 EDT Office Visit [facility] Rheumatology & Immunology - [facility] [address] [place], [place] [phone] Chantel Juan MD [address] [place], [place] [phone] documented as of this encounter Procedures Procedure Name Priority Date/Time Associated Diagnosis Comments VITAMIN B12 Routine 05/22/2024 12:41 EST documented in this encounter Results * VITAMIN B12 (05/22/2024 12:41 EST) Vitamin B12 660 211 - 911 pg/mL 05/22/2024 22:46 EST [facility] Blood VENOUS BLOOD / Unknown 05/22/2024 12:41 EST 05/22/2024 22:18 EST us Provider Outr Resulting Lab CHEMISTRY & BLOOD GA S ORDERABLES Final Result [facility] [address] [place] [address] documented in this encounter Visit Diagnoses Not on filedocumented in this encounter Care Teams Organ Installer Relationship Specialty Start Date End Date Daniel Gannon ND [address] [place] [address] [address] [place], [place] [phone] PCP - General Naturopathic Medicine 05/16/24 documented as of this encounter
--- OUTSIDE RECORDS SUMMARY | 2024-06-12 19:10 | XMS_ITS | Encounter Summary ---
Author Organization [facility] Address [address] [place] [address] Care Team Providers Care Programs Director Name Role Phone Daniel Gannon DARSHANA Primary Care Provider [phone] Reason for Referral * Cardiology (Routine/Next Available) - Receiving Office to Obtain Authorization Specialty Diagnoses / Procedures Referred By Contac t Referred To Contact Procedures OUTSIDE IMAGES FOR ARCHIVE - ECHO Imaging, External Referral ID Status Reason Start Date Expiration Date Visits Requested Visits Authorized [id number] Receiving Office to Obtain Authorization 4 1 1 * Cardiology (Routine/Next Available) - Receiving Office to Obtain Authorization Specialty Diagnoses / Procedures Referred By Contac t Referred To Contact Procedures OUTSIDE IMAGES FOR ARCHIVE - ECHO Imaging, External Referral ID Status Reason Start Date Expiration Date Visits Requested Visits Authorized [id number] Receiving Office to Obtain Authorization 4 1 1 Reason for Visit * Cardiology (Routine/Next Available) - Receiving Office to Obtain Authorization Specialty Diagnoses / Procedures Referred By Contac t Referred To Contact Procedures OUTSIDE IMAGES FOR ARCHIVE - ECHO Imaging, External Referral ID Status Reason Start Date Expiration Date Visits Requested Visits Authorized [id number] Receiving Office to Obtain Authorization 4 1 1 Encounter Details Date Type Department Care Team (Latest Contact Info) Description 06/02/2024 12:23 EST - 06/02/2024 23:[address] [facility] Radiology - [facility] [place] [address] [place] [address] Discharge Disposition: Home or Self Care Social [...] Info) Description 08/24/2024 14:[address] [facility] Rheumatology & Immunology - [facility] [address] [place] [address] Chantel Juan MD [address] [place] [address] documented as of this encounter Procedures Procedure Name Priority Date/Time Associated Diagnosis Comments OUTSIDE IMAGES FOR ARCHIVE - ECHO Routine 06/02/2024 12:23 EST OUTSIDE IMAGES FOR ARCHIVE - ECHO Routine 06/02/2024 12:23 EST documented in this encounter Results * OUTSIDE IMAGES FOR ARCHIVE - ECHO (06/02/2024 12:23 EST) Narrative [facility] - 06/02/2024 12:23 EST This is a non-reportable exam. us External Imaging CARDIAC ECHO ORDERABLES Final R esult Performing Organization Address [facility] [address]/[facility] Co de Phone Number [facility] * OUTSIDE IMAGES FOR ARCHIVE - ECHO (06/02/2024 12:23 EST) Narrative [facility] - 06/02/2024 12:23 EST This is a non-reportable exam. us External Imaging CARDIAC ECHO ORDERABLES Final R esult Performing Organization Address [facility] [address]/[facility] Co de Phone Number [facility] documented in this encounter Visit Diagnoses Not on filedocumented in this encounter Care Teams Programs Director Relationship Specialty Start Date End Date Daniel Gannon ND [address] [place] [address] [place] [address] PCP - General Naturopathic Medicine 05/16/24 documented as of this encounter
--- OUTSIDE RECORDS SUMMARY | 2024-06-12 19:10 | XMS_ITS | Encounter Summary ---
Author Organization [facility] Address [address] [place] [address] Care Team Providers Care Developer Programmer Analyst Name Role Phone Daniel Gannon ND Primary Care Provider [phone] Encounter Details Date Type Department Care Team (Late st Contact Info) Description 06/02/2024 Lab Requisition [facility] Pathology & Laboratory Medicine - [address] [address] Outr Resulting Lab, Provider Social History Tobacco [...] Date of Assessment Author No 11/26/2016 7:43 EDJose Azar RN * Do you have difficulty dressing or bathing? (5 years old or older) Answer Date of Assessment Author No 11/26/2016 7:43 EDJose Azar RN * Because of a physical, mental, [...] Info) Description 08/24/2024 14:15 EDT Office Visit [facility] Rheumatology & Immunology - [facility] [address] [place], [place] [phone] Chantel Juan MD [address] [place], [place] [phone] documented as of this encounter Procedures Procedure Name Priority Date/Time Associated Diagnosis Comments SUSCEPTIBILITY Routine 05/30/2024 11:17 EST documented in this encounter Results * (ABNORMAL) SUSCEPTIBILITY (05/30/2024 11:17 EST) Organism ID Streptococcus parasanguinis(A ) VITEK SUSCEPTIBILITY 13:27 EST [facility] Comment: Organism identification performed by client. Organism VENOUS BLOOD / Unknown 05/30/2024 11:17 EST 06/02/2024 20:13 EST Narrative Organism Antibiotic Method Susceptibility Streptococcus parasanguinis Ceftriaxone MICRO SUSCEPTIBILITY 0.016 ug/mL: Susceptible Streptococcus parasanguinis Penicillin MICRO SUSCEPTIBILITY 0.03 ug/mL: Susceptible us Provider Outr Resulting Lab MICROBIOLOGY - GENER AL ORDERABLES Final Result [facility] [address] [place] [address] documented in this encounter Visit Diagnoses Not on filedocumented in this encounter Care Teams Developer Programmer Analyst Relationship Specialty Start Date End Date Daniel Gannon ND [address] [place] [address] [facility] [place] [address] PCP - General Naturopathic Medicine 05/16/24 documented as of this encounter
--- OUTSIDE RECORDS SUMMARY | 2024-06-12 19:10 | XMS_ITS | Encounter Summary ---
Author Organization [facility] Address [address] [place] [address] Care Team Providers Care Strategic Buyer Name Role Phone Daniel Gannon ND Primary Care Provider [phone] Encounter Details Date Type Department Care Team (Late st Contact Info) Description 05/24/2024 Lab Requisition [facility] Pathology & Laboratory Medicine - [address] [address] Outr Resulting Lab, Provider Social History Tobacco [...] 08/24/2024 14:15 EDT Office Visit [facility] Rheumatology & Immunology - [facility] [address] [place], [place] [address] Chantel Juan MD [address] [place], [place] [phone] documented as of this encounter Visit Diagnoses Not on filedocumented in this encounter Care Teams Strategic Buyer Relationship Specialty Start Date End Date Daniel Gannon ND [address] [place] [address] [place], [place] [address] PCP - General Naturopathic Medicine 05/16/24 documented as of this encounter
--- OUTSIDE RECORDS SUMMARY | 2024-06-12 19:10 | XMS_ITS | Clinical Summary ---
Author Organization [facility] Address [address] [place] [address] Care Team Providers Care Mail Carriers Supervisor Name Role Phone Daniel Gannon DARSHANA Primary Care Provider Allergies No known active allergies Medications ELIQUIS 5 mg tablet Take 1 Tablet by mouth 2 times daily. Active lamoTRIgine (LAMICTAL) 200 mg tablet Take 1 Tablet by mouth 2 times daily. 4 Active aspirin chewable 81 mg tablet Take 1 Tablet by mouth daily. Active naproxen (NAPROSYN) 500 mg tablet Take 1-2 Tablets by mouth as needed. Active CANNABIDIOL, CBD, EXTRACT ORAL Take by mouth as needed. 05/16/20 24 Discontinu ed(Therapy completed) FOLIC ACID ORAL Take by mouth. 05/16/20 24 Discontinu ed(Therapy completed) lamoTRIgine (LAMICTAL) 100 mg tablet Take 3.5 Tablets by mouth daily. 105 Tablet 2 1 05/16/20 24 Discontinu ed(Alterna te therapy) clopidogreL (PLAVIX) 75 mg tablet Take 1 Tablet by mouth daily. 05/16/20 24 Discontinu ed(Therapy completed) Active Problems Problem Noted Date Diagnosed Date Seizure ([facility]) 11/27/2016 Aortic valve regurgitation 09/15/2010 Overview (09/15/2010): Moderate to severe. Note dated 03/04/10 Mitral valve insufficiency 09/15/2010 Overview (09/15/2010): Moderate. Note dated 03/04/10 Hypertensive disorder 09/15/2010 Palpitations 09/15/2010 Overview (09/15/2010): Unclear etiology. Encounters Date Type Department Care Team Description 06/02/2024 12:23 EST - 06/02/2024 23:59 [facility] Hospital Encounter [facility] Radiology [address] [address] Discharge Disposition: Home or Self Care 06/02/2024 Lab Requisition [facility] Pathology Laboratory [address] [address] Outr Resulting Lab, Provider 06/01/2024 0:10 EST - 06/01/2024 23:59 [facility] Hospital Encounter [facility] [place] Discharge Disposition: Home or Self Care 06/01/2024 0:05 EST - 06/01/2024 0:09 [facility] Hospital Encounter [facility] [place] Discharge Disposition: Home or Self Care 06/01/2024 - 06/01/2024 0:04 [facility] Hospital Encounter [facility] [place] Discharge Disposition: Home or Self Care 05/25/2024 Lab Requisition [facility] Pathology Laboratory [address] [address] Outr Resulting Lab, Provider 05/24/2024 Telephone [facility] Rheumatology & Immunology [address] [address] Chantel Juan MD Labs Only; Follow-up 05/24/2024 Lab Requisition [facility] Pathology & Laboratory [address] [address] Outr Resulting Lab, Provider 05/24/2024 Telephone [facility] Rheumatology & Immunology [address] [address] Chantel Juan MD Labs Only 05/22/2024 Lab Requisition [facility] Pathology & Laboratory [address] [address] Outr Resulting Lab, Provider 05/22/2024 Telephone [facility] Rheumatology & Immunology - [address] [address] Chantel Juan MD New/Evolving Symptoms; Returning Call; Ultrasound 05/16/2024 11:20 EST - 05/16/2024 23:59 EST Hospital Encounter [facility] Radiology Xray Outpatient - [address] [address] Chronic bilateral low back pain without sciatica Discharge Disposition: Home or Self Care 05/16/2024 11:20 EST - 05/16/2024 23:59 EST Hospital Encounter [facility] Center Radiology Xray Outpatient - [address] [address] Chronic bilateral low back pain without sciatica Discharge Disposition: Home or Self Care 05/16/2024 11:19 EST Hospital Encounter [facility] Radiology Xray Outpatient - [address] [address] Pain in joint involving ankle and foot, unspecified laterality Discharge Disposition: Home or Self Care 05/16/2024 9:45 EST Office Visit [facility] Rheumatology & Immunology [address] [address] Chantel Juan MD Non-bacterial thrombotic endocarditis (Primary Dx); Chronic bilateral low back pain without sciatica; Neck pain; Pain in joint involving ankle and foot, unspecified laterality 04/11/2024 Lab Requisition [facility] Pathology & Laboratory Medicine [address] [address] Outr Resulting Lab, Provider 04/11/2024 Lab Requisition [facility] Pathology & Laboratory Medicine [address] [address] Outr Resulting Lab, Provider 04/11/2024 Lab Requisition [facility] Pathology & Laboratory [address] [address] Outr Resulting Lab, Provider 04/11/2024 Lab Requisition [facility] Pathology & Laboratory [address] [address] Outr Resulting Lab, Provider 03/15/2024 Telephone [facility] Neurology [facility] [address] [place] [address] Mratin Purcell MD Consult 03/14/2024 11:10 EDT - 03/14/2024 23:59 EDT Hospital Encounter [facility] [place] Discharge Disposition: Home or Self Care 03/14/2024 11:09 EDT Hospital Encounter [facility] [place] Discharge Disposition: Home or Self Care 03/14/2024 - 03/14/2024 11:08 EDT Hospital Encounter [facility] [place] Discharge Disposition: Home or Self Care 03/14/2024 Telephone [facility] NEUR[facility]Y [address] [place] [id number] Martin Purcell MD Medication Questions 03/14/2024 Lab Requisition [facility] Pathology & Laboratory [address] [address] Outr Resulting Lab, Provider from Last 3 Months Immunizations Name Administration Dates Next Due Tdap Vaccine =>7YO IM 12/17/2012 Surgical History Surgery Date Site/Laterality Comments NASAL SEPTUM SURGERY Medical History Medical History Date Comments HTN (hypertension) Cardiac murmur Vocal cord paralysis, bilateral partial Family History Relation Status Comments Maternal Grandmother Alive A-Fib Mother Alive Social History Tobacco Use Types Packs/Day Years Used Date Smoking Tobacco: Never Passive Smoke Exposure: Never Smokeless Tobacco: Never Tobacco Cessation:Counseling Given: Not Answered Alcohol Use Standard Drinks/Week Comments Never 0 [...] on file Sexual Orientation Not on file Obstetrics History Last Filed Vital Signs Vital Sign Reading Time Taken Comments Blood Pressure 151/66 05/16/2024 0933 EST Pulse 81 05/16/2024 0933 EST Temperature 36.3 ??C (97.4 ??F) 05/16/2024 0933 EST Respiratory Rate 18 06/04/2019 1615 EST Oxygen Saturation 100% 04/04/2019 0811 EDT Inhaled Oxygen Concentration - - Weight 80.7 kg (178 lb) 04/04/2019 0811 EDT Height 195 cm (6' 4.77) 05/16/2024 0933 EST Body Mass Index 20.57 04/04/2019 0811 EDT Plan of Treatment Upcoming Encounters Date Type Department Care Team (Late st Contact Info) Description 08/24/2024 14:15 EDT Office Visit [facility] Rheumatology & Immunology - [address] [phone] Chantel Juan MD [address] [place] [id number] Health Maintenance Due Date Last Done Comments Hepatitis C Screen 1980 Hepatitis B Vaccine (1 of 3 - 19+ 3-dose series) 03/02 COVID-19 Vaccine ( season) 2024 Procedures Procedure Name Priority Date/Time Associated Diagnosis Comments OUTSIDE IMAGES FOR ARCHIVE - ECHO Routine 06/02/2024 12:23 EST OUTSIDE IMAGES FOR ARCHIVE - ECHO Routine 06/02/2024 12:23 EST MR OUTSIDE IMAGES THORACIC SPINE Routine 06/01/2024 12:04 EST MR OUTSIDE IMAGES CERVICAL SPINE Routine 06/01/2024 12:04 EST MR OUTSIDE IMAGES LUMBAR SPINE Routine 06/01/2024 12:04 EST SUSCEPTIBILITY Routine 05/30/2024 11:17 EST FOLATE Routine 05/22/2024 12:41 EST VITAMIN B12 Routine 05/22/2024 12:41 EST XR RHEUMATOLOGY BILATERAL FEET 2 VIEWS EACH FOOT Routine 05/16/2024 11:48 EST Pain in joint involving ankle and foot, unspecified laterality XR LUMBAR SPINE 2-3 VIEWS Routine 05/16/2024 11:48 EST Chronic bilateral low back pain without sciatica XR SACROILIAC JOINTS 3 OR MORE VIEWS Routine 05/16/2024 11:47 EST Chronic bilateral low back pain without sciatica HN LAB PATH REVIEW - COAG Today 04/11/2024 12:39 EDT CCP ANTIBODIES Routine 04/11/2024 12:39 EDT RHEUMATOID FACTOR Routine 04/11/2024 12: 39 EDT ANTI NUCLEAR AB (MARISOL), IFA Routine 04/11/2024 12:39 EDT LUPUS ANTICOAGULANT CASCADE Routine 04/11/2024 12:39 EDT MR OUTSIDE IMAGES HEAD Routine 12:[address] OUTSIDE IMAGES OTHER Routine 03/14/2024 11:11 EDT MR OUTSIDE IMAGES HEAD Routine 11:11 EDT LYME AB Routine 03/14/2024 7:14 EDT from Last 3 Months Results * OUTSIDE IMAGES FOR ARCHIVE - ECHO (06/02/2024 12:23 EST) Only the most recent of2 resultswithin the time period is included. Narrative [facility] - 06/02/2024 12:23 EST This is a non-reportable exam. us External Imaging CARDIAC ECHO ORDERABLES Final R esult [facility] * MR OUTSIDE IMAGES LUMBAR SPINE (06/01/2024 12:04 EST) Narrative 06/02/2024 12:04 EST This is a non-reportable exam. us External Imaging IMG OTHER IMAGING ORDERABLES Fi nal Result * MR OUTSIDE IMAGES THORACIC SPINE (06/01/2024 12:04 EST) Narrative 06/02/2024 12:04 EST This is a non-reportable exam. us External Imaging IMG OTHER IMAGING ORDERABLES Fi nal Result * MR OUTSIDE IMAGES CERVICAL SPINE (06/01/2024 12:04 EST) Narrative 06/02/2024 12:04 EST This is a non-reportable exam. us External Imaging IMG OTHER IMAGING ORDERABLES Fi nal Result * (ABNORMAL) SUSCEPTIBILITY (05/30/2024 11:17 EST) Organism ID Streptococcus parasanguinis(A ) VITEK SUSCEPTIBILITY 13:27 EST [facility] Comment: Organism identification performed by client. Organism VENOUS BLOOD / Unknown 05/30/2024 11:17 EST 06/02/2024 20:13 EST Narrative Organism Antibiotic Method Susceptibility Streptococcus parasanguinis Ceftriaxone MICRO SUSCEPTIBILITY 0.016 ug/mL: Susceptible Streptococcus parasanguinis Penicillin MICRO SUSCEPTIBILITY 0.03 ug/mL: Susceptible us Provider Outr Resulting Lab MICROBIOLOGY - GENER AL ORDERABLES Final Result [facility] [address] [place] [id number] * FOLATE (05/22/2024 12:41 EST) Folate 5.7 See Note ng/mL 05/25/2024 22:36 EST [facility] Comment: Reference Ranges for [...] S ORDERABLES Final Result Performing Organization Address [facility] Co de Phone Number [facility] [address] [place] [address] * VITAMIN B12 (05/22/2024 12:41 EST) Vitamin B12 660 211 - 911 pg/mL 05/22/2024 22:46 EST [facility] Blood VENOUS BLOOD / Unknown 05/22/2024 12:41 EST 05/22/2024 22:18 EST Provider Outr Resulting Lab CHEMISTRY & BLOOD GA S ORDERABLES Final Result Performing Organization Address [facility] de Phone Number [facility] [address] [place] [id number] * XR RHEUMATOLOGY BILATERAL FEET 2 VIEWS EACH FOOT (05/16/2024 11:48 EST) Anatomical Region Laterality Modality Computed Radiogr aphy 05/22/2024 12:2 5 EST Impressions 05/22/2024 12:25 EST FINDINGS / IMPRESSION: 2 views of the right foot and 2 views of the left foot show no evidence of fracture, subluxation, or dislocation on either side. No significant degenerative changes seen either. No evidence of avascular necrosis nor Freiberg's infraction on either foot. Mineralization is age-appropriate. No evidence of chondrocalcinosis on either side. There are minimal enthesopathic changes in the posterior aspect of the calcaneus bilaterally. Soft tissues are otherwise grossly unremarkable. [id number] Narrative 05/22/2024 12:25 EST EXAM/TECHNIQUE: XR RHEUMATOLOGY BILATERAL FEET 2 VIEWS EACH FOOT ??05/16/2024 11:22 AM HISTORY: arthralgia ? bony erosions ? chondrocalcinosis ? inflammatory ? degenerative COMPARISON: None. Resulting Agency Comment [id number] Procedure Note Jensen Tenorio MD - 05/22/2024 EXAM/TECHNIQUE: XR RHEUMATOLOGY BILATERAL FEET 2 VIEWS EACH FOOT05/16/2024 11:22 AM HISTORY: arthralgia ? bony erosions ? chondrocalcinosis ? inflammatory ?degenerative COMPARISON: None. IMPRESSION FINDINGS / IMPRESSION: 2 views of the right foot and 2 views of the left foot show no evidence offracture, subluxation, or dislocation on either side. No significantdegenerative changes seen either. No evidence of avascular necrosis norFreiberg's infraction on either foot. Mineralization is age-appropriate.No evidence of chondrocalcinosis on either side. There are minimalenthesopathic changes in the posterior aspect of the calcaneusbilaterally. Soft tissues are otherwise grossly unremarkable. [id number] us Tomy Hyde MD IMG DIAGNOSTIC IMAGING ORDERABLE S Final Result * XR LUMBAR SPINE 2-3 VIEWS (05/16/2024 11:48 EST) Anatomical Region Laterality Modality Spine Computed Radiogr aphy 05/16/2024 11:5 3 EST Impressions 05/17/2024 14:59 EST Osseous findings as above. THIS DOCUMENT HAS BEEN ELECTRONICALLY SIGNED BY ROCKY CALDERON MD FOR ANY QUESTIONS OR CONCERNS REGARDING THIS REPORT PLEASE CALL [facility] AT [phone] Narrative 05/17/2024 14:59 EST PROCEDURE INFORMATION: Exam: XR Lumbosacral Spine Exam date and time: 05/16/2024 11:53 AM Age: 44 years old Clinical indication: Other chronic pain; Low back pain, unspecified; Other: Chronic back pain since age 20 yo, evaluate for inflammatory changes TECHNIQUE: Imaging protocol: Radiologic exam of the lumbosacral spine. Views: 2 or 3 views. COMPARISON: 1. ?? XR SACROILIAC JOINTS 3 OR MORE VIEWS 05/16/2024 11:30 AM 2[address] ?? CT OUTSIDE IMAGES ABDOMEN PELVIS 03/08/2024 2:01 AM FINDINGS: Bones/joints: There is a slight levoscoliosis of the lumbar spine. The vertebral bodies maintain their height throughout. The pedicles are intact. There are degenerative changes small anterior osteophytes at multiple levels. Soft tissues: Unremarkable. Procedure Note Rocky Calderon MD - 05/17/2024 PROCEDURE INFORMATION: Exam: XR Lumbosacral Spine Exam date and time: 05/16/2024 11:53 AM Age: 44 years old Clinical indication: Other chronic pain; Low back pain, unspecified;Other: Chronic back pain since age 20 yo, evaluate for inflammatory changes TECHNIQUE: Imaging protocol: Radiologic exam of the lumbosacral spine. Views: 2 or 3 views. COMPARISON: 1. XR SACROILIAC JOINTS 3 OR MORE VIEWS 05/16/2024 11:[address] OUTSIDE IMAGES ABDOMEN PELVIS 03/08/2024 2:01 AM FINDINGS: Bones/joints: There is a slight levoscoliosis of the lumbar spine. The vertebral bodies maintain their height throughout. The pedicles areintact. There are degenerative changes small anterior osteophytes at multiplelevels. Soft tissues: Unremarkable. IMPRESSION Osseous findings as above. THIS DOCUMENT HAS BEEN ELECTRONICALLY SIGNED BY ROCKY CALDERON MD FOR ANY QUESTIONS OR CONCERNS REGARDING THIS REPORT PLEASE CALL [facility] [phone] us Tomy Hyde MD IMG DIAGNOSTIC IMAGING ORDERABLE S Final Result * XR SACROILIAC JOINTS 3 OR MORE VIEWS (05/16/2024 11:47 EST) Anatomical Region Laterality Modality Spine Computed Radiogr aphy 05/22/2024 12:2 1 EST Impressions 05/22/2024 12:21 EST FINDINGS / IMPRESSION: 3 views of the SI joints show no discrete fracture or malalignment, the SI joints appear grossly congruent and symmetric. No evidence of sclerosis or discrete erosions seen on either SI joint. Mineralization is age-appropriate. Soft tissues are grossly unremarkable. [id number] Narrative 05/22/2024 12:21 EST EXAM/TECHNIQUE: XR SACROILIAC JOINTS 3 OR MORE VIEWS ??05/16/2024 11:22 AM HISTORY: lower back pain ? sacroiliitis ? bony erosions COMPARISON: None. Resulting Agency Comment [id number] Procedure Note Jensen Tenorio MD - 05/22/2024 EXAM/TECHNIQUE: XR SACROILIAC JOINTS 3 OR MORE VIEWS 05/16/2024 11:22 AM HISTORY: lower back pain ? sacroiliitis ? bony erosions COMPARISON: None. IMPRESSION FINDINGS / IMPRESSION: 3 views of the SI joints show no discrete fracture or malalignment, the SIjoints appear grossly congruent and symmetric. No evidence of sclerosis ordiscrete erosions seen on either SI joint. Mineralization isage-appropriate. Soft tissues are grossly unremarkable. [id number] Tomy Hyde MD IMG DIAGNOSTIC IMAGING ORDERABLE S Final Result * HN LAB PATH REVIEW - COAG (04/11/2024 12:39 EDT) Pathology Review Comment - Coagulation Lupus anticoagulant results reviewed by Wally Menendez MD 04/13/2024 15:30 EDT [facility] Blood VENOUS BLOOD / Unknown 04/11/2024 12:39 EDT 04/11/2024 17:17 EDT us Provider Outr Resulting Lab HEMATOLOGY & PF4 ORD ERABLES Final Result [facility] [address] [place] [address] * LUPUS ANTICOAGULANT CASCADE (04/11/2024 12:39 EDT) [place] Summary INTERPRETATION: Negative for the detection of a Lupus Anticoagulant (LA). Where clinical suspicion for antiphospholipid syndrome is high, it may be appropriate to perform alternative testing for antiphospholipid syndrome. COMMENTS Please note testing for Lupus Anticoagulant (LA) during an acute thrombotic event/acute illness may demonstrate either false positive or false negative results; retesting following the acute event should be considered, regardless of the initial results. DIAGNOSTIC CRITERIA FOR APLS: The laboratory criteria for antiphospholipid syndrome include positive testing for one of the following on 2 or more occasions, at least 12 weeks apart: ?? 1. Lupus anticoagulant (LA), 2. Cardiolipin antibodies (IgG or IgM) in medium or high titer, ?? 3. Beta2-glycoprotein 1 antibodies (IgG or IgM) in medium or high titer. Solid-phase assays for Beta2 glycoprotein 1 (B2GP1) and Cardiolipin (Phospholipid) antibodies are recommended when evaluating a patient for antiphospholipid syndrome. Correlation with those results is advised. ?? HEPARIN MONITORING: An anti-Xa activity test is the preferred test to monitor unfractionated heparin levels. The aPTT test may be unreliable in patients with antiphospholipid syndrome. ?? DIAGNOSTIC THRESHOLD FOR LA CASCADE: The [facility] applies the International Society of Thrombosis and Hemostasis (ISTH) guidelines to interpret the normalized ratio (Test Ratio (TR) Ratio) results of the dilute Zachary viper venom time (DVV) and the silica clot time (SCT); these guidelines suggest a TR Ratio greater than the 99% is positive for the detection of a Lupus Anticoagulant (LA). ??Based on locally established reference values from normal donors, the 99% for the DVV is >1.18 and the 99% is >1.20 for the SCT (this information is provided with the patient's results in the Lupus Anticoagulant Panel results, below). ?? Please note guidelines do vary, and the Clinical Laboratory Standards [place] (CLSI) recommends a TR Ratio greater than +2 standard deviation (SD) as positive for the detection a Lupus Anticoagulant (LA). ??Based on locally established reference values from normal donors, the +2SD for the DVV is > 1.17 and the +2SD for the SCT is >1.20. ?? [place] Panel Results: Qualitative Anti-Xa: ??No Anti-Xa detected. Thrombin Time: ??13.1 secs (Ref Range: <=20.0 secs) Silica Clotting Time: ??40.8 secs (Ref Range: 35.2-56.8 secs) Silica Clot Confirm: ??40.3 secs (Ref Range: 33.7-51.8 secs) Silica Clot TR Ratio: ??0.94 (Ref Range: <=1.20) Dilute Viper Venom: ??43.0 secs (Ref Range: 26.2-40.9 secs) Dilute Neymar Viper Venom Time Confirm: ??32.3 secs (Ref Range: 24.5-31.4 secs) DVV TR Ratio: ??1.11 (Ref Range: <=1.18) 04/13/2024 15:30 EDT [facility] Blood VENOUS BLOOD / Unknown 04/11/2024 12:39 EDT 04/11/2024 17:17 EDT us Provider Outr Resulting Lab HEMATOLOGY & PF4 ORD ERABLES Final Result Performing Organization Address City/[facility]/ZIP Co de Phone Number [facility] [address] [place] [address] * CCP ANTIBODIES (04/11/2024 12:39 EDT) CCP Antibodies <2.5 <5.0 U/mL 04/12/2024 9:10 EDT [facility] Blood VENOUS BLOOD / Unknown 04/11/2024 12:39 EDT 04/11/2024 17:30 EDT us Provider Outr Resulting Lab IMMUNOLOGY AND SEROL OGY ORDERABLES Final Result Performing Organization Address [facility] Co de Phone Number [facility] [address] [place] [address] * RHEUMATOID FACTOR (04/11/2024 12:39 EDT) Rheumatoid Factor <8.6 <12.0 IU/mL 04/11/2024 17:50 EDT [facility] Blood VENOUS BLOOD / Unknown 04/11/2024 12:39 EDT 04/11/2024 17:30 EDT us Provider Outr Resulting Lab CHEMISTRY & BLOOD GA S ORDERABLES Final Result Performing Organization Address [facility] Co de Phone Number [facility] [address] [place] [address] * ANTI NUCLEAR AB (MARISOL), IFA (04/11/2024 12:39 EDT) MARISOL Interpretation Negative Negative 2023 15:55 EDT [facility] Comment:No titer performed, MARISOL Screen is negative. Blood VENOUS BLOOD / Unknown 04/11/2024 12:39 EDT 04/11/2024 17:30 EDT Narrative [facility] - 04/12/2024 15:55 EDT Results were obtained with the Fantoo NOVA Lite HEp-2 MARISOL Kit by indirect immunofluorescence. us Provider Outr Resulting Lab IMMUNOLOGY AND SEROL OGY ORDERABLES Final Result [facility] [address] [place] [address] * MR OUTSIDE IMAGES HEAD (03/14/2024 12:03 EDT) Narrative 06/02/2024 12:03 EST This is a non-reportable exam. us External Imaging IMG OTHER IMAGING ORDERABLES Fi nal Result * CT OUTSIDE IMAGES OTHER (03/14/2024 11:11 EDT) Narrative 03/14/2024 11:11 EDT This is a non-reportable exam. us External Imaging IMG OTHER IMAGING ORDERABLES Fi nal Result * MR OUTSIDE IMAGES HEAD (03/14/2024 11:11 EDT) Narrative 03/14/2024 11:11 EDT This is a non-reportable exam. us External Imaging IMG OTHER IMAGING ORDERABLES Fi nal Result * LYME AB (03/14/2024 7:14 EDT) Lyme Ab Negative Negative 03/15/2024 11:35 EDT [facility] Blood VENOUS BLOOD / Unknown 03/14/2024 7:14 EDT 03/14/2024 17:32 EDT us Provider Outr Resulting Lab IMMUNOLOGY AND SEROL OGY ORDERABLES Final Result [facility] [address] [place] [address] from Last 3 Months Insurance Advance Directives For more information, please contact: [phone] * Full Code (Latest Code Status on File) Date Activated Date Inactivated Comments 11/26/2016 7:32 11/27/2016 13:54 Question Answer Comments Reason for decision includes: Full code consistent with overall plan of care Who participated in the discussion? Not Discusse d Care Teams Mail Carriers Supervisor Relationship Specialty Start Date End Date Daniel Gannon ND [address] [place] [address] [place] [address] PCP - General Naturopathic Medicine 05/16/24
--- OUTSIDE RECORDS SUMMARY | 2024-06-12 19:10 | XMS_ITS | Encounter Summary ---
Author Organization [facility] Address [address] [place] [address] Care Team Providers Care Cloth Neutralizer Name Role Phone Daniel Gannon DARSHANA Primary Care Provider +1 [phone] Reason for Referral * (Routine/Next Available) - Receiving Office to Obtain Authorization Specialty Diagnoses / Procedures Referred By Contac t Referred To Contact Procedures MR OUTSIDE IMAGES CERVICAL SPINE Imaging, External Referral ID Status Reason Start Date Expiration Date Visits Requested Visits Authorized [id number] Receiving Office to Obtain Authorization 4 1 1 Reason for Visit * (Routine/Next Available) - Receiving Office to Obtain Authorization Specialty Diagnoses / Procedures Referred By Contac t Referred To Contact Procedures MR OUTSIDE IMAGES CERVICAL SPINE Imaging, External Referral ID Status Reason Start Date Expiration Date Visits Requested Visits Authorized [id number] Receiving Office to Obtain Authorization 4 1 1 Encounter Details Date Type Department Care Team (Latest Contact Info) Description 06/01/2024 0:05 EST - 06/01/2024 0:09 EST Hospital Encounter [facility] Medical Center Secondary Reads [place] Discharge [...] Info) Description 08/24/2024 14:15 EDT Office Visit [facility] Rheumatology & Immunology - [facility] [address], [place] [phone] Chantel Juan MD [address] [place], [place] [phone] documented as of this encounter Procedures Procedure Name Priority Date/Time Associated Diagnosis Comments MR OUTSIDE IMAGES CERVICAL SPINE Routine 06/01/2024 12:04 EST documented in this encounter Results * MR OUTSIDE IMAGES CERVICAL SPINE (06/01/2024 12:04 EST) Narrative 06/02/2024 12:04 EST This is a non-reportable exam. us External Imaging IMG OTHER IMAGING ORDERABLES Fi nal Result documented in this encounter Visit Diagnoses Not on filedocumented in this encounter Care Teams Cloth Neutralizer Relationship Specialty Start Date End Date Daniel Gannon ND [address] [place] [address] [place] [address] PCP - General Naturopathic Medicine 05/16/24 documented as of this encounter
--- OUTSIDE RECORDS SUMMARY | 2024-06-12 19:10 | XMS_ITS | Encounter Summary ---
Author Organization [facility] Address [address] [place] [address] Care Team Providers Care Harbormaster Name Role Phone Daniel Gannon ND Primary Care Provider +[phone] Reason for Visit * Reason Onset Date Comments Labs Only 05/24/2024 Encounter Details Date Type Department Care Team (Late st Contact Info) Description 05/24/2024 Telephone [facility] Rheumatology & Immunology - [facility] [address], [place] [phone] Chantel Juan MD [address] [place], [place] [phone] Labs Only Social History Tobacco Use Types Packs/Day Years [...] EDJose Azar RN * Do you have serious difficulty [...] Jose Valero RN documented in this encounter Miscellaneous Notes * Telephone Encounter - Earl Oconnor RN - 05/24/2024 0901 EST Spoke with Mamta at [facility]. Faxed future external lab orders to [phone]. Patient was at the lab to have his blood work completed. * Telephone Encounter - Martine Urrutia - 05/24/2024 0848 EST Mamta from [facility] calling - stating no labs on file and patient is there. documented in this encounter Plan of Treatment Upcoming Encounters Date Type Department Care Team (Late st Contact Info) Description 08/24/2024 14:15 EDT Office Visit [facility] Rheumatology & Immunology - [facility] [address] [place], [place] [address] Chantel Juan MD [address] [place], [place] [phone] documented as of this encounter Visit Diagnoses Not on filedocumented in this encounter Care Teams Harbormaster Relationship Specialty Start Date End Date Daniel Gannon ND [address] [place] [address] [address] [place], [place] [address] PCP - General Naturopathic Medicine 05/16/24 documented as of this encounter
--- OUTSIDE RECORDS SUMMARY | 2024-06-12 19:10 | XMS_ITS ---
Author Organization Unknown Address [address] [place] [phone] Phone Care Team Providers Care Special Needs Teacher Name Role Phone MICHELLE OSBORNEHAL Attending Unavailable Social History Type Status Start Date End Date Code Code Syst em Smoking History Never smoker (Never Smoked) 925006973 SNOMED CT Sex Male Medications Medication Start Date End Date Route Frequency Dose Code Code System Medication Instructions Home Meds LaMICtal 200MG Oral Tablet 03/16/2024 05/31/2024 ORAL TWICE A DAY 200 MILLIGRAMS 424701 RxNorm TAKE 200 MILLIGRAMS ORAL TWICE A DAY Atorvastatin Calcium 40MG Oral Tablet 03/16/2024 Unknown ORAL BEDTIME 1 TABLET 496818 RxNorm TAKE 1 TABLET ORAL BEDTIME Aspirin 81MG Oral Tablet, Enteric Coated 03/16/2024 Unknown ORAL DAILY 1 TABLET 578805 RxNorm TAKE 1 TABLET ORAL DAILY Clopidogrel 75MG Oral Tablet 03/16/2024 05/31/2024 ORAL DAILY 1 TABLET 775600 RxNorm TAKE 1 TABLET ORAL DAILY Cephalexin 500MG Oral Capsule 03/29/2024 05/31/2024 ORAL FOUR TIMES A DAY 1 CAPSULE 403923 RxNorm TAKE 1 CAPSULE ORAL FOUR TIMES [...] Date Status Code Code System STROKE active 866281579 SNOMED-CT AORTIC REGURGITATION active 59213750 SNOMED-CT MITRAL REGURGITATION active 42014143 SNOMED-CT BACTEREMIA active 0612830 SNOMED-CT INFECTIVE ENDOCARDITIS active 3223384 07 SNOMED-CT MITRAL REGURGITATION 05/31/2024 resolved 65108914 SNOMED-CT CVA 03/29/2024 resolved 014424731 SNOMED-CT AORTIC REGURGITATION 05/31/2024 resolved 28076734 SNOMED-CT SEIZURE DISORDER 03/08/2024 resolved 732007420 SN OMED-CT Allergies and Adverse Reactions Allergy Substance Reaction Severity Start Date Concern Status Co de Code System No Known Allergies Active 494762962 SNO MED-CT Plan of Treatment US DVT BILAT 05/24/2024 LAB DRAW 15MIN 04/11/2024 LAB DRAW 15MIN 07/07/2022 LAB DRAW 15MIN 04/13/2022 Personal Care Team Section Performer Name Performer Role Active Date Inactive Da te
--- OUTSIDE RECORDS SUMMARY | 2024-06-12 19:10 | XMS_ITS | Referral Summary ---
Author Organization [facility] Address [address] [place] [address] Care Team Providers Care Immigration Case Worker Name Role Phone Daniel Gannon ND Primary Care Provider Encounters Date Type Department Care Team Description 06/02/2024 12:23 EST - 06/02/2024 23:59 EST Hospital Encounter [facility] Radiology - [address] [phone] Discharge Disposition: Home or Self Care 06/01/2024 0:10 EST - 06/01/2024 23:59 EST Hospital Encounter [facility] Secondary Reads [place] Discharge Disposition: Home or Self Care 06/01/2024 0:05 EST - 06/01/2024 0:09 EST Hospital Encounter [facility] Secondary Reads [place] Discharge Disposition: Home or Self Care 06/01/2024 - 06/01/2024 0:04 EST Hospital Encounter [facility] Secondary Reads [place] Discharge Disposition: Home or Self Care 06/02/2024 Lab Requisition [facility] Pathology & Laboratory Medicine [address] [address] Outr Resulting Lab, Provider 05/24/2024 Telephone [facility] Rheumatology & Immunology - [address] [phone] Chantel Juan MD Labs Only; Follow-up 05/24/2024 Lab Requisition [facility] Pathology & Laboratory Medicine - [address] [address] Outr Resulting Lab, Provider 05/24/2024 Telephone [facility] Rheumatology & Immunology - [address] [address] Chantel Juan MD Labs Only 05/25/2024 Lab Requisition [facility] Pathology & Laboratory Medicine [address] [address] Outr Resulting Lab, Provider 05/22/2024 Lab Requisition [facility] Pathology & Laboratory Medicine [address] [address] Outr Resulting Lab, Provider 05/22/2024 Telephone [facility] Rheumatology & Immunology [address] [address] Chantel Juan MD New/Evolving Symptoms; Returning Call; Ultrasound 05/16/2024 11:20 EST - 05/16/2024 23:59 EST Hospital Encounter [facility] Radiology Xray Outpatient - [address] [address] Chronic bilateral low back pain without sciatica Discharge Disposition: Home or Self Care 05/16/2024 11:20 EST - 05/16/2024 23:59 [facility] Hospital Encounter [facility] Radiology Xray Outpatient - [address] [address] Chronic bilateral low back pain without sciatica Discharge Disposition: Home or Self Care 05/16/2024 11:19 [facility] Hospital Encounter [facility] Radiology Xray Outpatient - [address] [address] Pain in joint involving ankle and foot, unspecified laterality Discharge Disposition: Home or Self Care 05/16/2024 9:45 EST Office Visit [facility] Rheumatology & Immunology [address] [phone] Chantel Juan MD Non-bacterial thrombotic endocarditis (Primary Dx); Chronic bilateral low back pain without sciatica; Neck pain; Pain in joint involving ankle and foot, unspecified laterality 04/11/2024 Lab Requisition [facility] Pathology & Laboratory [address] [address] Outr Resulting Lab, Provider 04/11/2024 Lab Requisition [facility] Pathology & Laboratory [address] [address] Outr Resulting Lab, Provider 04/11/2024 Lab Requisition [facility] Pathology & Laboratory [address] [address] Outr Resulting Lab, Provider 04/11/2024 Lab Requisition [facility] Pathology & Laboratory [address] [address] Outr Resulting Lab, Provider 03/15/2024 Telephone [facility] Neurology [facility] [address] [place] [address] Martin Purcell MD Consult 03/14/2024 - 03/14/2024 11:08 EDT Hospital Encounter [facility] Secondary Reads [place] Discharge Disposition: Home or Self Care 03/14/2024 Telephone [facility] NE[facility] [address] [place] [address] Martin Purcell MD Medication Questions 03/14/2024 Lab Requisition [facility] Pathology & Laboratory [address] [address] Outr Resulting Lab, Provider 03/14/2024 11:10 EDT - 03/14/2024 23:59 EDT Hospital Encounter [facility] Secondary Reads [place] Discharge Disposition: Home or Self Care 03/14/2024 11:09 EDT Hospital Encounter [facility] Secondary Reads [place] Discharge Disposition: Home or Self Care from Last 3 Months Allergies No known active allergies Medications ELIQUIS 5 mg tablet Take 1 Tablet by mouth 2 times daily. Active lamoTRIgine (LAMICTAL) 200 mg tablet Take 1 Tablet by mouth 2 times daily. Active aspirin chewable 81 mg tablet Take 1 Tablet by mouth daily. Active naproxen (NAPROSYN) 500 mg tablet Take 1-2 Tablets by mouth as needed. Active CANNABIDIOL, CBD, EXTRACT ORAL Take by mouth as needed. 05/16/20 Discontinu ed(Therapy completed) FOLIC ACID ORAL Take by mouth. 05/16/20 Discontinu ed(Therapy completed) lamoTRIgine (LAMICTAL) 100 mg tablet Take 3.5 Tablets by mouth daily. 105 Tablet 2 1 05/16/20 Discontinu ed(Alterna te therapy) clopidogreL (PLAVIX) 75 mg tablet Take 1 Tablet by mouth daily. 05/16/20 24 Discontinu ed(Therapy completed) Active Problems Problem Noted Date Diagnosed Date Seizure ([facility]) 11/27/2016 Aortic valve regurgitation 09/15/2010 Overview (09/15/2010): Moderate to severe. Note dated 03/04/10 Mitral valve insufficiency 09/15/2010 Overview (09/15/2010): Moderate. Note dated 03/04/10 Hypertensive disorder 09/15/2010 Palpitations 09/15/2010 Overview (09/15/2010): Unclear etiology. Immunizations Name Administration Dates Next Due Tdap Vaccine =>7YO IM 12/17/2012 Social History Tobacco Use Types Packs/Day Years [...] on file Sexual Orientation Not on file Last Filed Vital Signs Vital Sign Reading [...] Body Mass Index 20.57 04/04/2019 0811 EDT Functional Status * Are you deaf or do you have serious difficulty hearing? Answer Date of Assessment Author No 11/26/2016 7:43 EDT Jose Medrano RN * Are you blind or do you have serious difficulty seeing, even when wearing glasses? Answer Date of Assessment Author No 11/26/2016 7:43 EDT Jose Medrano RN * Do you have serious difficulty walking or climbing stairs? (5 years old or older) Answer Date of Assessment Author No 11/26/2016 7:43 EDT Jose Medrano RN * Do you have difficulty dressing or bathing? (5 years old or older) Answer Date of Assessment Author No 11/26/2016 7:43 EDT Jose Medrano RN * Because of a physical, mental, or emotional condition, does this person have difficulty doing errands alone such as visiting a doctor's office or shopping? Answer Date of Assessment Author Yes 05/16/2024 9:34 Jose Valero RN Mental Status * Because of a physical, mental, or emotional condition, does this person have serious difficulty concentrating, remembering, or making decisions? Answer Entry Date Author No 05/16/2024 9:34 Jose Valero RN Plan of Treatment Upcoming Encounters Date Type Department Care Team (Late st Contact Info) Description 08/24/2024 14:15 EDT Office Visit [facility] Rheumatology & Immunology - [address] [phone] Chantel Juan MD [address] [place], [place] [address] Procedures Procedure Name Priority Date/Time Associated Diagnosis [...] 11:11 EDT MR OUTSIDE IMAGES HEAD Routine 4 11:11 EDT LYME AB Routine 03/14/2024 7:14 [...] Organism ID Streptococcus parasanguinis(A ) VITEK SUSCEPTIBILITY 4 13:[address] [facility] Comment: Organism identification performed by client. Organism VENOUS BLOOD / Unknown 05/30/2024 11:17 EST 06/02/2024 20:13 EST Narrative Organism Antibiotic Method Susceptibility Streptococcus parasanguinis Ceftriaxone MICRO SUSCEPTIBILITY 0.016 ug/mL: Susceptible Streptococcus parasanguinis Penicillin MICRO SUSCEPTIBILITY 0.03 ug/mL: Susceptible us Provider Outr Resulting Lab MICROBIOLOGY - GENER AL ORDERABLES Final Result Performing Organization Address [facility] de Phone Number [facility] [address] [place] [address] * FOLATE (05/22/2024 12:41 EST) Folate 5.7 See Note ng/mL 05/25/2024 22:[address] [facility] Comment: Reference Ranges for [...] S ORDERABLES Final Result Performing Organization Address [facility] Co de Phone Number [facility] [address] [place] [address] * VITAMIN B12 (05/22/2024 12:41 EST) Vitamin B12 660 211 - 911 pg/mL 05/22/2024 22:[address] [facility] Blood VENOUS BLOOD / Unknown 05/22/2024 12:41 EST 05/22/2024 22:18 EST us Provider Outr Resulting Lab CHEMISTRY & BLOOD GA S ORDERABLES Final Result Performing Organization Address [facility] Co de Phone Number [facility] [address] [place] [address] * XR RHEUMATOLOGY BILATERAL FEET 2 VIEWS [...] bilaterally. Soft tissues are otherwise grossly unremarkable. [id number] Narrative 05/22/2024 12:25 EST EXAM/TECHNIQUE: XR RHEUMATOLOGY BILATERAL FEET 2 VIEWS EACH FOOT ??05/16/2024 11:22 AM HISTORY: arthralgia ? bony erosions ? chondrocalcinosis ? inflammatory ? degenerative COMPARISON: None. Resulting Agency Comment [id number] Procedure Note Jensen Tenorio MD - 05/22/2024 [...] calcaneusbilaterally. Soft tissues are otherwise grossly unremarkable. [id number] us Tomy Hyde MD IMG DIAGNOSTIC IMAGING ORDERABLE S Final Result * XR LUMBAR SPINE 2-3 VIEWS (05/16/2024 11:48 EST) Anatomical Region Laterality Modality Spine Computed Radiogr aphy 05/16/2024 11:5 3 EST Impressions 05/17/2024 14:59 EST Osseous findings as above. THIS DOCUMENT HAS BEEN ELECTRONICALLY SIGNED BY ROCKY CALDERON MD FOR ANY QUESTIONS OR CONCERNS REGARDING THIS REPORT PLEASE CALL [facility] AT [phone] [facility] 05/17/2024 14:59 EST PROCEDURE INFORMATION: Exam: XR [...] CONCERNS REGARDING THIS REPORT PLEASE CALL [facility] [phone] Tomy Hyde MD IMG DIAGNOSTIC IMAGING ORDERABLE [...] is age-appropriate. Soft tissues are grossly unremarkable. [id number] Narrative 05/22/2024 12:21 EST EXAM/TECHNIQUE: XR SACROILIAC JOINTS 3 OR MORE VIEWS ??05/16/2024 11:22 AM HISTORY: lower back pain ? sacroiliitis ? bony erosions COMPARISON: None. Resulting Agency Comment [id number] Procedure Note Jensen Tenorio MD - 05/22/2024 [...] Mineralization isage-appropriate. Soft tissues are grossly unremarkable. [id number] Tomy Hyde MD IMG DIAGNOSTIC IMAGING ORDERABLE S Final Result * HN LAB PATH REVIEW - COAG (04/11/2024 12:39 EDT) Pathology Review Comment - Coagulation Lupus anticoagulant results reviewed by Wally Menendez MD 04/13/2024 15:[address] [facility] Blood VENOUS BLOOD / Unknown 04/11/2024 12:39 EDT 04/11/2024 17:17 EDT us Provider Outr Resulting Lab HEMATOLOGY & PF4 ORD ERABLES Final Result [facility] [address] [place] [address] * LUPUS ANTICOAGULANT CASCADE (04/11/2024 12:39 EDT) [place] Summary INTERPRETATION: Negative for the detection of [...] ?? DIAGNOSTIC THRESHOLD FOR LA CASCADE: The [facility] applies the International Society of [...] do vary, and the Clinical Laboratory Standards [place] (CLSI) recommends a TR Ratio greater than +2 standard deviation (SD) as positive for the detection a Lupus Anticoagulant (LA). ??Based on locally established reference values from normal donors, the +2SD for the DVV is > 1.17 and the +2SD for the SCT is >1.20. ?? [place] Panel Results: Qualitative Anti-Xa: ??No Anti-Xa detected. [...] Range: <=1.18) 04/13/2024 15:[address] [facility] Blood VENOUS BLOOD / Unknown 04/11/2024 12:39 EDT 04/11/2024 17:17 EDT us Provider Outr Resulting Lab HEMATOLOGY & PF4 ORD ERABLES Final Result Performing Organization Address City/[facility]/ZIP Co de Phone Number [facility] [address] [place] [address] * CCP ANTIBODIES (04/11/2024 12:39 EDT) CCP Antibodies <2.5 <5.0 U/mL 04/12/2024 9:[address] [facility] Blood VENOUS BLOOD / Unknown 04/11/2024 12:39 EDT 04/11/2024 17:30 EDT us Provider Outr Resulting Lab IMMUNOLOGY AND SEROL OGY ORDERABLES Final Result Performing Organization Address City/[facility]/ZIP Co de Phone Number [facility] [address] [place] [address] * RHEUMATOID FACTOR (04/11/2024 12:39 EDT) Rheumatoid Factor <8.6 <12.0 IU/mL 04/11/2024 17:[address] [facility] Blood VENOUS BLOOD / Unknown 04/11/2024 12:39 EDT 04/11/2024 17:30 EDT us Provider Outr Resulting Lab CHEMISTRY & BLOOD GA S ORDERABLES Final Result Performing Organization Address [facility] Co de Phone Number [facility] [address] [place] [address] * ANTI NUCLEAR AB (MARISOL), IFA (04/11/2024 12:39 EDT) Pathologist [facility] MARISOL Interpretation Negative Negative 2023 15:[address] [facility] Comment:No titer performed, MARISOL Screen is negative. Blood VENOUS BLOOD / Unknown 04/11/2024 12:39 EDT 04/11/2024 17:30 EDT Narrative [facility] - 04/12/2024 15:55 EDT Results were obtained with the [employer] HEp-2 MARISOL Kit by indirect immunofluorescence. us Provider Outr Resulting Lab IMMUNOLOGY AND SEROL OGY ORDERABLES Final Result Performing Organization Address [facility] de Phone Number [facility] [address] [place] [address] * MR OUTSIDE IMAGES HEAD (03/14/2024 12:03 [...] Negative Negative 03/15/2024 11:[address] [facility] Blood VENOUS BLOOD / Unknown 03/14/2024 7:14 EDT 03/14/2024 17:32 EDT us Provider Outr Resulting Lab IMMUNOLOGY AND SEROL OGY ORDERABLES Final Result [facility] [address] [place], [place] [phone] from Last [address] [place] [address] [place] [address] Advance Directives For more information, please contact: [phone] * Full Code (Latest Code Status on File) Date Activated Date Inactivated Comments 11/26/2016 7:32 11/27/2016 13:54 Question Answer Comments Reason for decision includes: Full code consistent with overall plan of care Who participated in the discussion? Not Discusse d Care Teams Immigration Case Worker Relationship Specialty Start Date End Date Daniel Gannon ND [address] [place] [address] [place] [address] PCP - General Naturopathic Medicine 05/16/24
--- OUTSIDE RECORDS SUMMARY | 2024-06-12 19:10 | XMS_ITS | Encounter Summary ---
Author Organization [facility] Address [address] [place] [address] Care Team Providers Care Jamb Cutter Name Role Phone Daniel Gannon DARSHANA Primary Care Provider +[phone] Reason for Referral * (Routine/Next Available) - Receiving Office to Obtain Authorization Specialty Diagnoses / Procedures Referred By Contac t Referred To Contact Procedures MR OUTSIDE IMAGES LUMBAR SPINE Imaging, External Referral ID Status Reason Start Date Expiration Date Visits Requested Visits Authorized [id number] Receiving Office to Obtain Authorization 4 1 1 Reason for Visit * (Routine/Next Available) - Receiving Office to Obtain Authorization Specialty Diagnoses / Procedures Referred By Contac t Referred To Contact Procedures MR OUTSIDE IMAGES LUMBAR SPINE Imaging, External Referral ID Status Reason Start Date Expiration Date Visits Requested Visits Authorized [id number] Receiving Office to Obtain Authorization 4 1 1 Encounter Details Date Type Department Care Team (Latest Contact Info) Description 06/01/2024 - 06/01/2024 0:04 EST Hospital Encounter [facility] Secondary Reads [place] Discharge Disposition: Home [...] Info) Description 08/24/2024 14:15 EDT Office Visit [facility] Rheumatology & Immunology - [facility] [address] [place], [place] [phone] Chantel Juan MD [address] [place], [place] [address] documented as of this encounter Procedures Procedure Name Priority Date/Time Associated Diagnosis Comments MR OUTSIDE IMAGES LUMBAR SPINE Routine 06/01/2024 12:04 EST documented in this encounter Results * MR OUTSIDE IMAGES LUMBAR SPINE (06/01/2024 12:04 EST) Narrative 06/02/2024 12:04 EST This is a non-reportable exam. us External Imaging IMG OTHER IMAGING ORDERABLES Fi nal Result documented in this encounter Visit Diagnoses Not on filedocumented in this encounter Care Teams Jamb Cutter Relationship Specialty Start Date End Date Daniel Gannon ND [address] [place] [address] [place] [address] PCP - General Naturopathic Medicine 05/16/24 documented as of this encounter
--- OUTSIDE RECORDS SUMMARY | 2024-06-12 19:10 | XMS_ITS | Encounter Summary ---
Author Organization [facility] Address [address] [place] [address] Care Team Providers Care Mixer Dry Food Products Name Role Phone Daniel Gannon ND Primary Care Provider +1 [phone] Reason for Visit * Reason Onset Date Comments Labs Only 05/24/2024 Follow-up 05/24/2024 Encounter Details Date Type Department Care Team (Late st Contact Info) Description 05/24/2024 Telephone [facility] Rheumatology & Immunology - [facility] [address], [place] [phone] Chantel Juan MD [address] [place], [place] [phone] Labs Only; Follow-up Social History Tobacco Use Types Packs/Day Years [...] Encounter - Earl Oconnor RN - 05/24/2024 1036 EST Spoke with Mamta at [facility]. Patient had previously completed his labs on 05/22/24. We did not have results in the chart. [facility] to fax results from 05/22 and will complete C Reactive protein and Sed Rate. Patient will not be charged for previously completed labs. * Telephone Encounter - Sam Ro - 05/24/2024 1029 EST Mamta calling to speak to nursing about this patient's labs that they just collected. documented in this encounter Plan of Treatment Upcoming Encounters Date Type Department Care Team (Late st Contact Info) Description 08/24/2024 14:15 EDT Office Visit [facility] Rheumatology & Immunology - [address] [phone] Chantel Juan MD [address] [place] [phone] documented as of this encounter Visit Diagnoses Not on filedocumented in this encounter Care Teams Mixer Dry Food Products Relationship Specialty Start Date End Date Daniel Gannon ND [address] [place] [address] [place], [place] [phone] PCP - General Naturopathic Medicine 05/16/24 documented as of this encounter
--- OUTSIDE RECORDS SUMMARY | 2024-06-12 19:11 | XMS_ITS | Encounter Summary ---
Author Organization [facility] Address [address] [place] [address] Care Team Providers Care Desulphurizer Operator Name Role Phone Kenny Salazar MD Primary Care Provider +1- [phone] Reason for Visit * Reason Onset Date Comments Appointment Related 12/11/2020 Encounter Details Date Type Department Care Team (Late st Contact Info) Description 12/11/2020 Telephone [facility] Neurophysiology - [facility] ([place] [address]) [address] [place] [address] Kenny Salazar MD [address] [facility]. [address] [place] [phone] Appointment Related Social History Tobacco Use Types Packs/Day Years Used Date Smoking Tobacco: Former Cigarettes Q uit: 03/03/2003 Smokeless Tobacco: Never Alcohol Use Standard Drinks/Week [...] on file Sexual Orientation Not on file COVID-19 Exposure Response Date Recorded In the last month, have you been in contact with someone who was confirmed or suspected to have Coronavirus / COVID-19? No / Unsure 11/13/2020 8:16 EDT documented as of this encounter Functional Status [...] or shopping? Answer Date of Assessment Author No 05/18/2017 8:10 Jose Valero RN documented as of this encounter Mental Status * Because of a physical, mental, or emotional condition, does this person have serious difficulty concentrating, remembering, or making decisions? Answer Entry Date Author Yes 05/18/2017 8:10 Jose Valero RN documented in this encounter Miscellaneous Notes * Telephone Encounter - Bibi Younger - 12/12/2020 0911 EDT LM asking if he wanted to reschedule with another Doctor or if he would be receiving care at another place. * Telephone Encounter - Shaneka Zavala RN - 12/11/2020 0852 EDT Reason for contact: Follow up Pt canceled 12/09/[address] Salazar and requested neurologist that was not about to retire,could see by televideo and would help him moving forward. Dr Salazar stated that he is not about to retire and does see pts by televideo but perhaps pt would benefit from a different neurologist Message forwarded to merchandise manager to see if pt wants to schedule with Dr Ospina or if he would like tofollow with someone outside the [facility] (possibly [facility]) documented in this encounter Plan of Treatment Upcoming Encounters Date Type Department Care Team (Late st Contact Info) Description 08/24/2024 14:15 EDT Office Visit [facility] Rheumatology & Immunology - [address] [phone] Chantel Juan MD [address] [place], [place] [phone] documented as of this encounter Visit Diagnoses Not on filedocumented in this encounter Care Teams Desulphurizer Operator Relationship Specialty Start Date End Date Kenny Salazar MD [address] [place] [address], [place]. [address] [place] [phone] PCP - General Neurology 07/26/20 05/15/24 documented as of this encounter
--- OUTSIDE RECORDS SUMMARY | 2024-06-12 19:11 | XMS_ITS | Encounter Summary ---
Author Organization [facility] Address [address] [place] [address] Care Team Providers Care Head Resident Name Role Phone Daniel Gannon DARSHANA Primary Care Provider [phone] Reason for Referral * Radiology Services (Routine/Next Available) - Authorization Not Required Specialty Diagnoses / Procedures Referred By See hickman Referred To Contact Diagnoses Pain in joint involving ankle and foot, unspecified laterality Procedures XR RHEUMATOLOGY BILATERAL FEET 2 VIEWS EACH FOOT Tomy Hyde Chi, MD [address] [place] [phone] Phone: tel: fax: [facility] Referral ID Status Reason Start Date Expiration Date Visits Requested Visits Authorized [id number] Authorization Not Required 05/16/2024 1 1 Reason for Visit * Radiology Services (Routine/Next Available) - Authorization Not Required Specialty Diagnoses / Procedures Referred By See hickman Referred To Contact Diagnoses Pain in joint involving ankle and foot, unspecified laterality Procedures XR RHEUMATOLOGY BILATERAL FEET 2 VIEWS EACH FOOT Tomy Hyde Chi, MD [address] [place] [phone] Phone: tel: fax: [facility] Referral ID Status Reason Start Date Expiration Date Visits Requested Visits Authorized [id number] Authorization Not Required 05/16/2024 1 1 Encounter Details Date Type Department Care Team (Latest Contact Info) Description 05/16/2024 11:19 EST Hospital Encounter [facility] Radiology Xray Outpatient - [address] [address] Pain in joint involving ankle and foot, unspecified laterality Discharge Disposition: Home or Self Care Social [...] Answer Entry Date Author No 05/16/2024 9:34 EST Jose Medrano RN documented in this encounter Medications at [...] Info) Description 08/24/2024 14:15 EDT Office Visit [facility] Rheumatology & Immunology - [address] [phone] Chantel Juan MD [address] [place] [phone] documented as of this encounter Procedures Procedure Name Priority Date/Time Associated Diagnosis Comments XR RHEUMATOLOGY BILATERAL FEET 2 VIEWS EACH FOOT Routine 05/16/2024 11:48 EST Pain in joint involving ankle and foot, unspecified laterality documented in this encounter Results * XR RHEUMATOLOGY BILATERAL FEET 2 VIEWS [...] bilaterally. Soft tissues are otherwise grossly unremarkable. [id number] Narrative 05/22/2024 12:25 EST EXAM/TECHNIQUE: XR RHEUMATOLOGY BILATERAL FEET 2 VIEWS EACH FOOT ??05/16/2024 11:22 AM HISTORY: arthralgia ? bony erosions ? chondrocalcinosis ? inflammatory ? degenerative COMPARISON: None. Resulting Agency Comment [id number] Procedure Note Jensen Tenorio MD - 05/22/2024 [...] calcaneusbilaterally. Soft tissues are otherwise grossly unremarkable. [id number] us Tomy Hyde MD IMG DIAGNOSTIC IMAGING ORDERABLE S Final Result documented in this encounter Visit Diagnoses Diagnosis Pain in joint involving ankle and foot, unspecified laterality documented in this encounter Care Teams Head Resident Relationship Specialty Start Date End Date Daniel Gannon ND [address] [place] [address] [place] [address] PCP - General Naturopathic Medicine 05/16/24 documented as of this encounter
--- OUTSIDE RECORDS SUMMARY | 2024-06-12 19:11 | XMS_ITS | Encounter Summary ---
Author Organization [facility] Address [address] [place] [address] Care Team Providers Care Chauffeur Airport Limousine Name Role Phone Kenny Salazar MD Primary Care Provider +1- [phone] Encounter Details Date Type Department Care Team (Late st Contact Info) Description 12/02/2020 7:30 EDT Phlebotomy Only [facility] Laboratory Services - [address] [address] [facility] ([facility] Encounter for therapeutic drug monitoring Social History Tobacco Use Types Packs/Day Years [...] Date of Assessment Author No 11/26/2016 7:43 HARSHADT Jose Medrano RN * Do you have serious difficulty walking or climbing stairs? (5 years old or older) Answer Date of Assessment Author No 11/26/2016 7:43 Jose Benson RN * Do you have difficulty dressing or bathing? (5 years old or older) Answer Date of Assessment Author No 11/26/2016 7:43 HARSHADT oJse Medrano RN * Because of a physical, [...] Info) Description 08/24/2024 14:15 EDT Office Visit [facility] Rheumatology & Immunology - [address] [address] Chantel Juan MD [address] [place], [place] [address] documented as of this encounter Visit Diagnoses Diagnosis Seizures ([facility]) Other convulsions Encounter for therapeutic drug monitoring documented in this encounter Care Teams [employer]ine Relationship Specialty Start Date End Date Kenny Salazar MD [address] [place] [address] [address] [place] [phone] PCP - General Neurology 07/26/20 05/15/24 documented as of this encounter
--- OUTSIDE RECORDS SUMMARY | 2024-06-12 19:11 | XMS_ITS | Encounter Summary ---
Author Organization [facility] Address [address] [place] [address] Care Team Providers Care Desk Clerk Name Role Phone Kenny Salazar MD Primary Care Provider + [phone] Daniel Gannon ND Primary Care Provider [phone] Encounter Details Date Type Department Care Team (Late st Contact Info) Description 04/11/2024 Lab Requisition [facility] Pathology & Laboratory Medicine - [facility] [address] [place], [place] [address] Outr Resulting Lab, Provider Social History Tobacco [...] No 11/26/2016 7:43 EDJose Azar RN * Are you blind or do [...] 08/24/2024 14:15 EDT Office Visit [facility] Rheumatology & Immunology - [facility] [address] [place], [place] [phone] Chantel Juan MD [address] [place], [place] [phone] documented as of this encounter Procedures Procedure Name Priority Date/Time Associated Diagnosis Comments HN LAB PATH REVIEW - COAG Today 04/11/2024 12:39 EDT LUPUS ANTICOAGULANT CASCADE Routine 04/11/2024 12:39 EDT documented in this encounter Results * HN LAB PATH REVIEW - COAG (04/11/2024 12:39 EDT) Pathology Review Comment - Coagulation Lupus anticoagulant results reviewed by Wally Menendez MD 04/13/2024 15:30 EDT [facility] Blood VENOUS BLOOD / Unknown 04/11/2024 12:39 EDT 04/11/2024 17:17 EDT us Provider Outr Resulting Lab HEMATOLOGY & PF4 ORD ERABLES Final Result [facility] [address] [place] [address] * LUPUS ANTICOAGULANT CASCADE (04/11/2024 12:39 EDT) [place] Summary INTERPRETATION: Negative for the detection of [...] ?? DIAGNOSTIC THRESHOLD FOR LA CASCADE: The [facility] Laboratory applies the International Society of Thrombosis [...] do vary, and the Clinical Laboratory Standards [place] (CLSI) recommends a TR Ratio greater than +2 standard deviation (SD) as positive for the detection a Lupus Anticoagulant (LA). ??Based on locally established reference values from normal donors, the +2SD for the DVV is > 1.17 and the +2SD for the SCT is >1.20. ?? [place] Panel Results: Qualitative Anti-Xa: ??No Anti-Xa detected. [...] ??1.11 (Ref Range: <=1.18) 04/13/2024 15:30 EDT [facility] Blood VENOUS BLOOD / Unknown 04/11/2024 12:39 EDT 04/11/2024 17:17 EDT us Provider Outr Resulting Lab HEMATOLOGY & PF4 ORD ERABLES Final Result [facility] [address] [place], [place] [phone] documented in this encounter Visit Diagnoses Not on filedocumented in this encounter Care Teams Desk Clerk Relationship Specialty Start Date End Date Kenny Salazar MD [address] [facility], [place]. [address] [place] [phone] PCP - General Neurology 07/26/20 05/15/24 Daniel Gannon ND [address] [place] [place] [address] [place] [address] PCP - General Naturopathic Medicine 05/16/24 documented as of this encounter
--- OUTSIDE RECORDS SUMMARY | 2024-06-12 19:11 | XMS_ITS | Encounter Summary ---
Author Organization [facility] Address [address] [place] [address] Care Team Providers Care Shipping Room Helper Name Role Phone Kenny Salazar MD Primary Care Provider +1- [phone] Reason for Visit * Reason Onset Date Comments Medications Refill 09/05/2020 Encounter Details Date Type Department Care Team (Late st Contact Info) Description 09/05/2020 [facility]ill [facility] Neuro[facility]iology [facility] ([place] [address]) [address] [place] [address] Kenny Salazar MD 111 [facility]. [address] [place] [phone] Medications Refill Social History Tobacco Use Types Packs/Day Years [...] have Coronavirus / COVID-19? No / Unsure 09/03/2020 8:50 EDT documented as of this encounter Functional [...] Jose Valero RN documented in this encounter Ordered Prescriptions Prescription Sig Dispense Quantity Refills Last Filled Start Date End Date lamoTRIgine (LAMICTAL) 100 mg tablet Increase as directed up to 300 mg daily 90 Tab 5 09/05/2020 documented in this encounter Miscellaneous Notes * Telephone Encounter - Shaneka Zavala RN - 09/05/2020 1403 EDTFrom: Feliciano Moore To: Office of Kenny Salazar MD Sent: 09/05/2020 12:55 EDT Subject: Medication Renewal Request Refills have been requested for the following medications: lamoTRIgine (LAMICTAL) 100 mg tablet [Kenny Salazar MD] Preferred pharmacy: [facility] - [place], [place] [facility] [address] [facility] documented in this encounter Plan of Treatment Upcoming Encounters Date Type Department Care Team (Late st Contact Info) Description 08/24/2024 14:15 EDT [facility] Rheumatology & Immunology - [facility] [address] [place], [place] [phone] Chantel Juan MD [address] [place], [place] [address] documented as of this encounter Visit Diagnoses Not on filedocumented in this encounter Discontinued Medications Medication Sig Discontinue Reason Start Date End Da te lamoTRIgine (LAMICTAL) 100 mg tablet As directed up to 200 mg daily Reorder 06/04/2020 09/05/2020 documented as of this encounter Care Teams Shipping Room Helper Relationship Specialty Start Date End Date Kenny Salazar MD [address] [facility] [address]. [address] [place] [address] PCP - General Neurology 07/26/20 05/15/24 documented as of this encounter
--- OUTSIDE RECORDS SUMMARY | 2024-06-12 19:11 | XMS_ITS | Encounter Summary ---
Author Organization [facility] Address [address] [place] [address] Care Team Providers Care Floor Technician Name Role Phone Kenny Salazar MD Primary Care Provider + [phone] Daniel Gannon ND Primary Care Provider [phone] Encounter Details Date Type Department Care Team (Late st Contact Info) Description 04/11/2024 Lab Requisition [facility] Pathology & Laboratory Medicine - [facility] [address] [place], [place] [address] Outr Resulting Lab, Provider Social History Tobacco [...] Info) Description 08/24/2024 14:15 EDT Office Visit [facility] Rheumatology & Immunology - [address] [phone] Chantel Juan MD [address] [place] [address] documented as of this encounter Procedures Procedure Name Priority Date/Time Associated Diagnosis Comments CCP ANTIBODIES Routine 04/11/2024 12:39 EDT documented in this encounter Results * CCP ANTIBODIES (04/11/2024 12:39 EDT) CCP Antibodies <2.5 <5.0 U/mL 04/12/2024 9:10 EDT [facility] Blood VENOUS BLOOD / Unknown 04/11/2024 12:39 EDT 04/11/2024 17:30 EDT us Provider Outr Resulting Lab IMMUNOLOGY AND SEROL OGY ORDERABLES Final Result [facility] [address] [place] [address] documented in this encounter Visit Diagnoses Not on filedocumented in this encounter Care Teams Floor Technician Relationship Specialty Start Date End Date Kenny Salazar MD 111 [facility]. [address] [place] [address] PCP - General Neurology 07/26/20 05/15/24 Daniel Gannon ND [address] [place] [address] [place] [address] PCP - General Naturopathic Medicine 05/16/24 documented as of this encounter
--- OUTSIDE RECORDS SUMMARY | 2024-06-12 19:11 | XMS_ITS | Encounter Summary ---
Author Organization [facility] Address [address] [place] [address] Care Team Providers Care Liaison Inspection Laboratory Assistant Name Role Phone Kenny Salazar MD Primary Care Provider +1- [phone] Encounter Details Date Type Department Care Team (Latest Contact Info) Description 11/13/2020 Travel Social History Tobacco Use Types Packs/Day Years [...] of Assessment Author No 11/26/2016 7:43 EDT Medrano, Jose a, RN * Are you blind or do [...] Description 08/24/2024 14:15 EDT Office Visit [facility] Rheumatology & Immunology - [facility] [address] [place], [place] [phone] Chantel Juan MD [address] [place], [place] [address] documented as of this encounter Visit Diagnoses Not on filedocumented in this encounter Care Teams Liaison Inspection Laboratory Assistant Relationship Specialty Start Date End Date Kenny Salazar MD [address] [place] [address], [address]. [address] [place] [phone] PCP - General Neurology 07/26/20 05/15/24 documented as of this encounter
--- OUTSIDE RECORDS SUMMARY | 2024-06-12 19:11 | XMS_ITS | Encounter Summary ---
Author Organization [facility] Address [address] [place] [address] Care Team Providers Care Paper Machine Tender Name Role Phone Kenny Salazar MD Primary Care Provider +1- [phone] Reason for Visit * Reason Onset Date Comments Consult 03/15/2024 Encounter Details Date Type Department Care Team (Late st Contact Info) Description 03/15/2024 Telephone [facility] Neurology [facility] [address] [place] [address] Martin Purcell MD [address] [place] [address] Consult Social History Tobacco Use Types Packs/Day Years [...] Entry Date Author Yes 05/18/2017 8:10 Jose Valreo RN documented in this encounter Miscellaneous Notes * Telephone Encounter - Martin Purcell MD - 03/15/2024 1222 EDT Stroke follow up- I discussed case with Dr Buckley on 03/14/2024 who reported that the patient had relayed that he had been diagnosed with PAF. As such, in light of his new stroke and PAF the treatment paradigm would change from DAPT to OAC and that he could start that in the next three days after discharge and stop both aspirin and Plavix. He was to follow up in Neuro stroke clinic if patient agreedto that. To call back with any new concerns. documented in this encounter Plan of Treatment Upcoming Encounters Date Type Department Care Team (Late st Contact Info) Description 08/24/2024 14:15 EDT Office Visit [facility] Rheumatology & Immunology [place] [address] Chantel Juan MD [address] [place], [place] [phone] documented as of this encounter Visit Diagnoses Not on filedocumented in this encounter Care Teams Paper Machine Tender Relationship Specialty Start Date End Date Kenny Salazar MD 111 [facility]. [address] [place] [phone] PCP - General Neurology 07/26/20 05/15/24 documented as of this encounter
--- OUTSIDE RECORDS SUMMARY | 2024-06-12 19:11 | XMS_ITS | Encounter Summary ---
Author Organization [facility] Address [address] [place] [address] Care Team Providers Care Chore Tender Name Role Phone Daniel Gannon DARSHANA Primary Care Provider +1 [phone] Reason for Referral * Radiology Services (Routine/Next Available) - Authorization Not Required Specialty Diagnoses / Procedures Referred By Contac t Referred To Contact Diagnoses Chronic bilateral low back pain without sciatica Procedures XR LUMBAR SPINE 2-3 VIEWS Tomy Hyde Chi, MD [address] [place] [phone] Phone: tel: fax: [facility] Referral ID Status Reason Start Date Expiration Date Visits Requested Visits Authorized [id number] Authorization Not Required 05/16/2024 1 1 Reason for Visit * Radiology Services (Routine/Next Available) - Authorization Not Required Specialty Diagnoses / Procedures Referred By Contac t Referred To Contact Diagnoses Chronic bilateral low back pain without sciatica Procedures XR LUMBAR SPINE 2-3 VIEWS Tomy Hyde Chi, MD [address] [place] [phone] Phone: tel: fax: [facility] Referral ID Status Reason Start Date Expiration Date Visits Requested Visits Authorized [id number] Authorization Not Required 05/16/2024 1 1 Encounter Details Date Type Department Care Team (Latest Contact Info) Description 05/16/2024 11:20 EST - 05/16/2024 23:59 EST Hospital Encounter [facility] Radiology Xray Outpatient - [address] [address] Chronic bilateral low back pain without sciatica Discharge Disposition: Home or Self Care Social [...] Info) Description 08/24/2024 14:15 EDT Office Visit [facility] Rheumatology & Immunology - [address] [phone] Chantel Juan MD [address] [place] [phone] documented as of this encounter Procedures Procedure Name Priority Date/Time Associated Diagnosis Comments XR LUMBAR SPINE 2-3 VIEWS Routine 05/16/2024 11:48 EST Chronic bilateral low back pain without sciatica documented in this encounter Results * XR LUMBAR SPINE 2-3 VIEWS (05/16/2024 11:48 EST) Anatomical Region Laterality Modality Spine Computed Radiogr aphy 05/16/2024 11:5 3 EST Impressions 05/17/2024 14:59 EST Osseous findings as above. THIS DOCUMENT HAS BEEN ELECTRONICALLY SIGNED BY NASEEM CALDERON MD FOR ANY QUESTIONS OR CONCERNS REGARDING THIS REPORT PLEASE CALL [facility] AT [phone] Narrative 05/17/2024 14:59 EST PROCEDURE INFORMATION: Exam: [...] multiple levels. Soft tissues: Unremarkable. Procedure Note Naseem Calderon MD - 05/17/2024 PROCEDURE INFORMATION: Exam: [...] THIS DOCUMENT HAS BEEN ELECTRONICALLY SIGNED BY NASEEM CALDERON MD FOR ANY QUESTIONS OR CONCERNS REGARDING THIS REPORT PLEASE CALL [facility] [phone] us Tomy Hyde MD IMG DIAGNOSTIC IMAGING ORDERABLE S Final Result documented in this encounter Visit Diagnoses Diagnosis Chronic bilateral low back pain without sciatica documented in this encounter Care Teams Chore Tender Relationship Specialty Start Date End Date Daniel Gannon ND [address] [place] [address] [place] [address] PCP - General Naturopathic Medicine 05/16/24 documented as of this encounter
--- OUTSIDE RECORDS SUMMARY | 2024-06-12 19:11 | XMS_ITS | Encounter Summary ---
Author Organization [facility] Address [address] [place] [address] Care Team Providers Care Gold Miner Blasting Name Role Phone Kenny Salazar MD Primary Care Provider +1- [phone] Encounter Details Date Type Department Care Team (Latest Contact Info) Description 04/11/2022 Transcribe Orders [facility] [address] [place] [address] Daniel Gannon, [place] [address] [facility] [place] [address] Nonintractable epilepsy without status epilepticus, unspecified epilepsy type (HCC-CMS) (Primary Dx); Syncope and collapse; Personal history of other endocrine, metabolic, and immunity disorders Social History Tobacco Use Types Packs/Day Years [...] 08/24/2024 14:15 EDT Office Visit [facility] Rheumatology & Immunology - [address] [address] Chantel Juan MD [address] [place] [id number] documented as of this encounter Visit Diagnoses Diagnosis Nonintractable epilepsy without status epilepticus, unspecified epilepsy type (HCC-CMS)- Primary Syncope and collapse Personal history of other endocrine, metabolic, and immunity disorders documented in this encounter Care Teams Gold Miner Blasting Relationship Specialty Start Date End Date Kenny Salazar MD [address] [place] [address] Gregor. [address] [place] [address] PCP - General Neurology 07/26/20 05/15/24 documented as of this encounter
--- OUTSIDE RECORDS SUMMARY | 2024-06-12 19:11 | XMS_ITS | Encounter Summary ---
Author Organization [facility] Address [address] [place] [address] Care Team Providers Care Vegetable Washing Machine Operator Name Role Phone Kenny Salazar MD Primary Care Provider + [phone] Daniel Gannon ND Primary Care Provider +1 [phone] Encounter Details Date Type Department Care Team (Late st Contact Info) Description 12/02/2020 Lab Requisition [facility] Pathology & Laboratory Medicine - [facility] [address] [place], [place] [address] Daniel Gannon ND [address] [place] [address] [place], [place] [phone] Encounter for therapeutic drug level monitoring; Hyperglycemia, unspecified; Abnormal level of blood mineral Social History Tobacco Use Types Packs/Day Years [...] Info) Description 08/24/2024 14:15 EDT Office Visit [facility] Rheumatology & Immunology - [facility] [address] [place] [address] Chantel Juan MD [address] [place] [address] documented as of this encounter Procedures Procedure Name Priority Date/Time Associated Diagnosis Comments IBC Today 12/02/2020 7:41 EDT Encounter for therapeutic drug level monitoring [ICD-10-CM] Hyperglycemia, unspecified [ICD-10-CM] Abnormal level of blood mineral [ICD-10-CM] LAMOTRIGINE Today 12/02/2020 7:41 EDT Encounter for therapeutic drug level monitoring [ICD-10-CM] Hyperglycemia, unspecified [ICD-10-CM] Abnormal level of blood mineral [ICD-10-CM] IRON Today 12/02/2020 7:41 EDT Encounter for therapeutic drug level monitoring [ICD-10-CM] Hyperglycemia, unspecified [ICD-10-CM] Abnormal level of blood mineral [ICD-10-CM] HEMOGLOBIN A1C Today 12/02/2020 7:41 EDT Encounter for therapeutic drug level monitoring [ICD-10-CM] Hyperglycemia, unspecified [ICD-10-CM] Abnormal level of blood mineral [ICD-10-CM] FERRITIN Today 12/02/2020 7:41 EDT Encounter for therapeutic drug level monitoring [ICD-10-CM] Hyperglycemia, unspecified [ICD-10-CM] Abnormal level of blood mineral [ICD-10-CM] COMPREHENSIVE METABOLIC PANEL (CMP) Today 12/02/2020 7:41 EDT Encounter for therapeutic drug level monitoring [ICD-10-CM] Hyperglycemia, unspecified [ICD-10-CM] Abnormal level of blood mineral [ICD-10-CM] documented in this encounter Results * LAMOTRIGINE (12/02/2020 7:41 EDT) Lamotrigine, S 2.5 2.5 - 15.0 mcg/mL 12/03/2020 15:05 EDT [facility] Comment: ADDITIONAL INFORMATION This test was developed and its performance characteristics determined by [facility] in a manner consistent with CLIA requirements. This test has not been cleared or approved by the U.S. Food and Drug Administration. Test Performed by: [facility] [address] [place] [address] Structural Steel Detailer: Ubaldo Gordon M.D. Ph.D.; IA# [id number] Blood VENOUS BLOOD / Unknown Venipuncture / Unknown 12/02/2020 7:41 EDT 12/02/2020 8:00 EDT Daniel Gannon ND CHEMISTRY & BLOOD GAS ORDER TERE Final Result [facility] [address] [place] [address] * (ABNORMAL) COMPREHENSIVE METABOLIC PANEL (CMP) (12/02/2020 7:41 EDT) Sodium 142 136 - 145 mEq/L 12/02/2020 9:09 [facility] Potassium 4.3 3.5 - 5.0 mEq/L 12/02/2020 9:09 [facility] Chloride 103 96 - 110 mEq/L 12/02/2020 9:09 [facility] CO2 Total 27 22 - 32 mEq/L 12/02/2020 9:09 [facility] Glucose 106(H) 70 - 100 mg/dL 12/02/2020 9:09 [facility] BUN 23 10 - 26 mg/dL 12/02/2020 9:09 [facility] Creatinine 0.92 0.66 - 1.25 mg/dL 12/02/2020 9:09 [facility] eGFR 104 >60 mL/min/1.7 3m2 12/02/2020 9:09 [facility] Comment:eGFR calculated brijesh fernandez CKD-EPI equation for non- Americans. Multiply eGFR by 1.16 for patients. Total Protein 6.5 6.3 - 8.2 g/dL 12/02/2020 9:09 [facility] Albumin 4.0 3.4 - 4.9 g/dL 12/02/2020 9:09 [facility] Alkaline Phosphatase 48 38 - 126 U/L 12/02/2020 9:09 EDT [facility] AST 62(H) 15 - 46 U/L 12/02/2020 9:09 T [facility] ALT 54(H) <50 U/L 12/02/2020 9:09 T [facility] Bilirubin, Total <0.5 <1.4 mg/dL 12/03/19 9:09 EDT [facility] Calcium 9.1 8.5 - 10.5 mg/dL 12/02/2020 9:09 EDT [facility] Calculated Calcium 9.1 8.5 - 10.5 mg/dL 12/02/2020 9:09 EDT [facility] Blood VENOUS BLOOD / Unknown Venipuncture / Unknown 12/02/2020 7:41 EDT 12/02/2020 8:00 EDT Daniel Gannon ND CHEMISTRY & BLOOD GAS ORDER TERE Final Result [facility] [address] [place] [address] * FERRITIN (12/02/2020 7:41 EDT) Ferritin 53 22 - 322 ng/mL 12/02/2020 12:23 EDT [facility] Blood VENOUS BLOOD / Unknown Venipuncture / Unknown 12/02/2020 7:41 EDT 12/02/2020 8:00 EDT Daniel Gannon ND CHEMISTRY & BLOOD GAS ORDER TERE Final Result [facility] [address] [place] [address] * IBC (12/02/2020 7:41 EDT) Iron Binding Capacity 313 261 - 462 ug/dL 12/02/2020 9:18 EDT [facility] Blood VENOUS BLOOD / Unknown Venipuncture / Unknown 12/02/2020 7:41 EDT 12/02/2020 8:00 EDT Daniel Gannon ND CHEMISTRY & BLOOD GAS ORDER TERE Final Result [facility] [address] [place] [address] * IRON (12/02/2020 7:41 EDT) Iron 103 49 - 181 ug/dL 12/02/2020 9:09 EDT [facility] Blood VENOUS BLOOD / Unknown Venipuncture / Unknown 12/02/2020 7:41 EDT 12/02/2020 8:00 EDT Daniel Gannon ND CHEMISTRY & BLOOD GAS ORDER TEER Final Result Performing Organization Address [facility] de Phone Number [facility] [address] [place] [address] * HEMOGLOBIN A1C (12/02/2020 7:41 EDT) Hemoglobin A1c 5.4 <5.7 % 12/02/2020 15:17 EDT [facility] Comment: New methodology in use 09/12/2020 Glycemic Status References: Normal: ??<5.7% Pre-Diabetes: ??5.7% - 6.4% Diagnostic of Diabetes: ??> or = 6.5% (if confirmed) Goals for glycemic control in diabetics (ADA 2017): <7.0% target for non adults with diabetes. <7.5% target for children and adolescents with Type I Diabetes. More or less stringent targets may be appropriate for individual patients. Est Avg Glucose 108 mg/dL 15:17 EDT [facility] Comment:The eAG represents t he A1c result expressed as average glucose in mg/dL. Blood VENOUS BLOOD / Unknown Venipuncture / Unknown 12/02/2020 7:41 EDT 12/02/2020 8:00 EDT Daniel Gannon ND CHEMISTRY & BLOOD GAS ORDER TERE Final Result [facility] [address] [place] [address] documented in this encounter Visit Diagnoses Diagnosis Encounter for therapeutic drug level monitoring Encounter for therapeutic drug monitoring Hyperglycemia, unspecified Abnormal level of blood mineral Other abnormal blood chemistry documented in this encounter Care Teams Vegetable Washing Machine Operator Relationship Specialty Start Date End Date Kenny Saalzar MD [address] [place] [address]. [address] [place] [address] PCP - General Neurology 07/26/20 05/15/24 Daniel Gannon ND [address] [place] [address] [place] [address] PCP - General Naturopathic Medicine 05/16/24 documented as of this encounter
--- OUTSIDE RECORDS SUMMARY | 2024-06-12 19:11 | XMS_ITS | Encounter Summary ---
Author Organization [facility] Address [address] [place] [address] Care Team Providers Care Pastoral Ministries Professor Name Role Phone Kenny Salazar MD Primary Care Provider +1- [phone] Reason for Referral * (Routine/Next Available) - Receiving Office to Obtain Authorization Specialty Diagnoses / Procedures Referred By Contac t Referred To Contact Procedures CT OUTSIDE IMAGES ABDOMEN PELVIS Imaging, External Referral ID Status Reason Start Date Expiration Date Visits Requested Visits Authorized [id number] Receiving Office to Obtain Authorization 03/14/2024 1 1 Reason for Visit * (Routine/Next Available) - Receiving Office to Obtain Authorization Specialty Diagnoses / Procedures Referred By Contac t Referred To Contact Procedures CT OUTSIDE IMAGES ABDOMEN PELVIS Imaging, External Referral ID Status Reason Start Date Expiration Date Visits Requested Visits Authorized [id number] Receiving Office to Obtain Authorization 03/14/2024 1 1 Encounter Details Date Type Department Care Team (Latest Contact Info) Description 03/08/2024 - 03/08/2024 23:59 EDT Hospital Encounter [facility] Secondary Reads [place] Discharge Disposition: Home [...] this encounter Medications at Time of Discharge lamoTRIgine (LAMICTAL) 200 mg tablet Take 1 Tablet by mouth 2 times daily. 10/04/2023 CANNABIDIOL, CBD, EXTRACT ORAL Take by mouth as needed. 05/16/2024 FOLIC ACID ORAL Take by mouth. 05/16/2024 lamoTRIgine (LAMICTAL) 100 mg tablet Take 3.5 Tablets by mouth daily. 105 Tablet 2 01/03/2021 05/16/2024 documented as of this encounter Discharge Disposition Disposition Code Departure Means Destination Home or Self Care documented in this encounter Plan of Treatment Upcoming Encounters Date Type Department Care Team (Late st Contact Info) Description 08/24/2024 14:15 EDT Office Visit [facility] Rheumatology & Immunology - [address] [id number] Chantel Juan MD [address] [place] [address] documented as of this encounter Procedures Procedure Name Priority Date/Time Associated Diagnosis Comments CT OUTSIDE IMAGES ABDOMEN PELVIS Routine 03/08/2024 11:58 EDT documented in this encounter Results * CT OUTSIDE IMAGES ABDOMEN PELVIS (03/08/2024 11:58 EDT) Narrative 03/14/2024 11:58 EDT This is a non-reportable exam. us External Imaging IMG OTHER IMAGING ORDERABLES Fi nal Result documented in this encounter Visit Diagnoses Not on filedocumented in this encounter Care Teams Pastoral Ministries Professor Relationship Specialty Start Date End Date Kenny Salazar MD [address] [facility]. [address] [place] [address] PCP - General Neurology 07/26/20 05/15/24 documented as of this encounter
--- OUTSIDE RECORDS SUMMARY | 2024-06-12 19:11 | XMS_ITS | Encounter Summary ---
Author Organization [facility] Address [address] [place] [address] Care Team Providers Care Sheet Metal Apprentice Name Role Phone Kenny Salazar MD Primary Care Provider +1- [phone] Reason for Visit * Reason Onset Date Comments Medication Management 11/13/2020 Encounter Details Date Type Department Care Team (Late st Contact Info) Description 11/13/2020 Telephone [facility] Neurophysiology - [facility] [address]) [address] [place] [address] Kenny Salazar MD [address] [facility]. [address] [place] [phone] Medication Management Social History Tobacco Use Types Packs/Day Years [...] Telephone Encounter - Shaneka Zavala RN - 11/13/2020 1310 EDT Reason for contact: upset that lab order for lamotrigine was not at lab Pt last seen 08/20/2020. Pt had reported seizure on 07/24/2020 and Lamotrigine was increased to 300 mg/day Pt had reported another seizure on 09/26/2020. Pt initially did not want to change dose of Lamotrigine but then called on 10/21/2020 asking about dose increase. Dr. Salazar had ordered trough toth level. I had left message for pt on 11/01/2020 asking him to call and I would instruct on getting trough lab. Pt never returned phone call. I am not sure how found out about lab. I called and left message explaining that I had been waiting for Feliciano to call and get instructions but instead left detailed message for her outlining getting trough toth level and asked her to call 2-3 business days after the blood was drawn to review results * Telephone Encounter - Antonieta Chin - 11/13/2020 0911 EDT Cherri called, and is upset that the lab order for lamotrigine levels have not been sent to the lab.She is requesting for a call back to notify when the order is sent. * Telephone Encounter - Wandy Dyson - 11/13/2020 0849 EDT Aniyah called from [facility] lab looking for orders for lamotrigine levels. I see the request mentioned in previous encounter Unable to reach RN Requested they reach out to DR via pass documented in this encounter Plan of Treatment Upcoming Encounters Date Type Department Care Team (Late st Contact Info) Description 08/24/2024 14:15 EDT Office Visit [facility] Rheumatology & Immunology - [address] [id number] Chantel Juan MD [address] [place], [place] [address] documented as of this encounter Visit Diagnoses Diagnosis Seizures ([facility]-CMS)- Primary Other convulsions Encounter for therapeutic drug monitoring documented in this encounter Orders Lab Orders Without Results Count Last Ordered D ate First Ordered Date LAMOTRIGINE 1 11/13/2020 documented in this encounter Care Teams Sheet Metal Apprentice Relationship Specialty Start Date End Date Kenny Salazar MD [address] [place] [address]. [address] [place] [address] PCP - General Neurology 07/26/20 05/15/24 documented as of this encounter
--- OUTSIDE RECORDS SUMMARY | 2024-06-12 19:11 | XMS_ITS | Encounter Summary ---
Author Organization [facility] Address [address] [place] [address] Care Team Providers Care Motorized Squad Sergeant Name Role Phone Daniel Gannon DARSHANA Primary Care Provider [phone] Reason for Referral * Radiology Services (Routine/Next Available) - Authorization Not Required Specialty Diagnoses / Procedures Referred By Contac t Referred To Contact Diagnoses Chronic bilateral low back pain without sciatica Procedures XR SACROILIAC JOINTS 3 OR MORE VIEWS Tomy Hyde Chi, MD [address] [place] [phone] Phone: tel: fax: [facility] Referral ID Status Reason Start Date Expiration Date Visits Requested Visits Authorized [id number] Authorization Not Required 05/16/2024 1 1 Reason for Visit * Radiology Services (Routine/Next Available) - Authorization Not Required Specialty Diagnoses / Procedures Referred By Contac t Referred To Contact Diagnoses Chronic bilateral low back pain without sciatica Procedures XR SACROILIAC JOINTS 3 OR MORE VIEWS Tomy Hyde Chi, MD [address] [place] [phone] Phone: tel: fax: [facility] Referral ID Status Reason Start Date Expiration Date Visits Requested Visits Authorized [id number] Authorization Not Required 05/16/2024 1 1 Encounter Details Date Type Department Care Team (Latest Contact Info) Description 05/16/2024 11:20 EST - 05/16/2024 23:59 EST Hospital Encounter [facility] Radiology Xray Outpatient - [address] [address] Chronic bilateral low back pain without sciatica [...] [facility] Rheumatology & Immunology - [address] [id number] Chantel Juan MD [address] [place] [phone] documented as of this encounter Procedures Procedure Name Priority Date/Time Associated Diagnosis Comments XR SACROILIAC JOINTS 3 OR MORE VIEWS Routine 05/16/2024 11:47 EST Chronic bilateral low back pain without sciatica documented in this encounter Results * XR SACROILIAC JOINTS 3 OR MORE [...] is age-appropriate. Soft tissues are grossly unremarkable. [id number] Narrative 05/22/2024 12:21 EST EXAM/TECHNIQUE: XR SACROILIAC JOINTS 3 OR MORE VIEWS ??05/16/2024 11:22 AM HISTORY: lower back pain ? sacroiliitis ? bony erosions COMPARISON: None. Resulting Agency Comment [id number] Procedure Note Jensen Tenorio MD - 05/22/2024 [...] Mineralization isage-appropriate. Soft tissues are grossly unremarkable. [id number] Tomy Hyde MD IMG DIAGNOSTIC IMAGING ORDERABLE S Final Result documented in this encounter Visit Diagnoses Diagnosis Chronic bilateral low back pain without sciatica documented in this encounter Care Teams Motorized Squad Sergeant Relationship Specialty Start Date End Date Daniel Gannon ND [address] [place] [address] [place] [address] PCP - General Naturopathic Medicine 05/16/24 documented as of this encounter
--- OUTSIDE RECORDS SUMMARY | 2024-06-12 19:11 | XMS_ITS | Encounter Summary ---
Author Organization [facility] Address [address] [place] [address] Care Team Providers Care Stationary Fireman Name Role Phone Kenny Salazar MD Primary Care Provider + [phone] Daniel Gannon ND Primary Care Provider [phone] Encounter Details Date Type Department Care Team (Late st Contact Info) Description 03/14/2024 Lab Requisition [facility] Pathology & Laboratory Medicine - [facility] [address] [place], [place] [address] Outr Resulting Lab, Provider Social History Tobacco [...] 08/24/2024 14:15 EDT Office Visit [facility] Rheumatology & Immunology - [address] [id number] Chantel Juan MD [address] [place], [place] [phone] documented as of this encounter Procedures Procedure Name Priority Date/Time Associated Diagnosis Comments LYME AB Routine 03/14/2024 7:14 EDT documented in this encounter Results * LYME AB (03/14/2024 7:14 EDT) Lyme Ab Negative Negative 03/15/2024 11:35 EDT [facility] Blood VENOUS BLOOD / Unknown 03/14/2024 7:14 EDT 03/14/2024 17:32 EDT us Provider Outr Resulting Lab IMMUNOLOGY AND SEROL OGY ORDERABLES Final Result [facility] [address] [place] [address] documented in this encounter Visit Diagnoses Not on filedocumented in this encounter Care Teams Stationary Fireman Relationship Specialty Start Date End Date Kenny Salazar MD [address] [facility] [place]. [address] [place] [address] PCP - General Neurology 07/26/20 05/15/24 Daniel Gannon ND [address] [place] [address] [place] [address] PCP - General Naturopathic Medicine 05/16/24 documented as of this encounter
--- OUTSIDE RECORDS SUMMARY | 2024-06-12 19:11 | XMS_ITS | Encounter Summary ---
Author Organization [facility] Address [address] [place] [address] Care Team Providers Care Road Roller Operator Hot Mix Name Role Phone Kenny Salazar MD Primary Care Provider +1- [phone] Reason for Visit * Reason Onset Date Comments Other 08/27/2020 Encounter Details Date Type Department Care Team (Late st Contact Info) Description 08/27/2020 Telephone [facility] Neurophysiology - [facility] ([place] [address]) [address] [place], [place] [phone] Kenny Salazar MD [address] [facility]. [address] [place] [phone] Other Social History Tobacco Use Types Packs/Day Years [...] have Coronavirus / COVID-19? No / Unsure 08/15/2020 8:07 EST documented as of this encounter Functional Status [...] encounter Miscellaneous Notes * Telephone Encounter - Kenny Salazar MD - 08/30/2020 1532 EDT I called. Existing therapist is young and not trained to help with the current question of prior PTSD and current seizure-liek episodes. They found Dr. Parker on line and are hoping to be able to see him. I placed consult. * Telephone Encounter - Lorene Duran - 08/30/2020 1428 EDT , cherri, calling stating she just missed Dr Salazar's call. Advised I did not see that she calledthem. She stated his message is on her voicemail. Spoke to Dr Salazar and he stated he would call them back later on. They can be reached at [phone] or [phone] * Telephone Encounter - Lorene Duran - 08/30/2020 1218 EDT , cherri, called in for Dr Salazar. Stating she was hoping Dr Salazar could refer them to Dr Parker who is neurologist and psychologist. Please call back. * Telephone Encounter - Shaneka Zavala RN - 08/30/2020 0904 EDT I called and spoke with pt. He is already seeing a therapist. He said he wanted to see a psychiatrist for trauma response and trauma therapy. He said that Dr Salazar mentioned at the visit that he knew someone. Pt thought name might have been Hero but he was not sure Will forward to Dr Salazar * Telephone Encounter - Kenny Salazar MD - 08/29/2020 1153 EDT I called to seek clarification. Not sure if this was regarding seeing a therapist or due to cognitive complaint. If about the latter, I suggest we wait to see how he does on a higher dose of ZAVALA though I am happy to talk with Feliciano about that (would want to talk to him directly). I tried his mobile and home just now and answering machine message on both. * Telephone Encounter - Shaneka Zavala RN - 08/28/2020 1331 EDT Reason for contact: Neuropsych referral Pt last seen 08/20/2020. Visit note is not available in [facility]. I cannot see that any referral has been placed. Referral pended for Dr Salazar to review/edit.sign * Telephone Encounter - Daisy Foster - 08/27/2020 0938 EDT Cherri is calling because Dr Salazar suggested Feliciano see a Neuropsychiarist. They would like to arrange this. documented in this encounter Plan of Treatment Upcoming Encounters Date Type Department Care Team (Late st Contact Info) Description 08/24/2024 14:15 EDT Office Visit [facility] Rheumatology & Immunology - [address] [id number] Chantel Juan MD [address] [place] [id number] documented as of this encounter Visit Diagnoses Diagnosis Seizures (HCC-CMS)- Primary Other convulsions PTSD (post-traumatic stress disorder) Posttraumatic stress disorder documented in this encounter Care Teams Road Roller Operator Hot Mix Relationship Specialty Start Date End Date Kenny Salazar MD [address] [place] [address]. [address] [place] [address] PCP - General Neurology 07/26/20 05/15/24 documented as of this encounter
--- OUTSIDE RECORDS SUMMARY | 2024-06-12 19:11 | XMS_ITS | Encounter Summary ---
Author Organization [facility] Address [address] [place] [address] Care Team Providers Care Health Promotion Manager Name Role Phone Kenny Salazar MD Primary Care Provider [phone]- [phone] Reason for Referral * (Routine/Next Available) - Receiving Office to Obtain Authorization Specialty Diagnoses / Procedures Referred By Contac t Referred To Contact Procedures CT OUTSIDE IMAGES OTHER Imaging, External Referral ID Status Reason Start Date Expiration Date Visits Requested Visits Authorized [id number] Receiving Office to Obtain Authorization 03/14/2024 1 1 Reason for Visit * (Routine/Next Available) - Receiving Office to Obtain Authorization Specialty Diagnoses / Procedures Referred By Contac t Referred To Contact Procedures CT OUTSIDE IMAGES OTHER Imaging, External Referral ID Status Reason Start Date Expiration Date Visits Requested Visits Authorized [id number] Receiving Office to Obtain Authorization 03/14/2024 1 1 Encounter Details Date Type Department Care Team (Latest Contact Info) Description 03/14/2024 11:10 EDT - 03/14/2024 23:59 EDT Hospital Encounter [facility] Secondary [place] Discharge Disposition: Home or Self Care Social History Tobacco Use Types Packs/Day Years Used Date Smoking Tobacco: Former Cigarettes Q uit: 03/03/2003 Smokeless Tobacco: Never Alcohol Use Standard Drinks/Week Comments Never 0 (1 standard drink = 0.6 oz pur e alcohol) AUDIT-C Answer Date Recorded Frequency of Alcohol Consumption Never 06/04/2019 Average Number of Drinks Not on file 12/22/2 019 Frequency of Binge Drinking Not on [...] Info) Description 08/24/2024 14:15 EDT Office Visit [facility] Rheumatology & Immunology - [facility] [address] [place], [place] [address] Chantel Juan MD [address] [place] [address] documented as of this encounter Procedures Procedure Name Priority Date/Time Associated Diagnosis Comments CT OUTSIDE IMAGES OTHER Routine 03/14/2024 11:11 EDT documented in this encounter Results * CT OUTSIDE IMAGES OTHER (03/14/2024 11:11 EDT) Narrative 03/14/2024 11:11 EDT This is a non-reportable exam. us External Imaging IMG OTHER IMAGING ORDERABLES Fi nal Result documented in this encounter Visit Diagnoses Not on filedocumented in this encounter Care Teams Health Promotion Manager Relationship Specialty Start Date End Date Kenny Salazar MD [address] [place] [address]. [address] [place] [address] PCP - General Neurology 07/26/20 05/15/24 documented as of this encounter
--- OUTSIDE RECORDS SUMMARY | 2024-06-12 19:11 | XMS_ITS | Encounter Summary ---
Author Organization [facility] Address [address] [place] [address] Care Team Providers Care Textile Colorist Dyer Name Role Phone Kenny Salazar MD Primary Care Provider + [phone] Daniel Gannon ND Primary Care Provider [phone] Encounter Details Date Type Department Care Team (Late st Contact Info) Description 04/11/2024 Lab Requisition [facility] Pathology & Laboratory Medicine - [facility] [address] [place], [place] [address] Outr Resulting Lab, Provider Social History Tobacco [...] Assessment Author No 11/26/2016 7:43 EDT Jose Medrnao RN * Because of a physical, mental, [...] Info) Description 08/24/2024 14:15 EDT Office Visit [facility] Rheumatology & Immunology - [address] [phone] Chantel Juan MD [address] [place], [place] [phone] documented as of this encounter Procedures Procedure Name Priority Date/Time Associated Diagnosis Comments RHEUMATOID FACTOR Routine 04/11/2024 12: 39 EDT documented in this encounter Results * RHEUMATOID FACTOR (04/11/2024 12:39 EDT) Rheumatoid Factor <8.6 <12.0 IU/mL 04/11/2024 17:50 EDT [facility] Blood VENOUS BLOOD / Unknown 04/11/2024 12:39 EDT 04/11/2024 17:30 EDT us Provider Outr Resulting Lab CHEMISTRY & BLOOD GA S ORDERABLES Final Result [facility] [address] [place] [address] documented in this encounter Visit Diagnoses Not on filedocumented in this encounter Care Teams Textile Colorist Dyer Relationship Specialty Start Date End Date Kenny Salazar MD [address] [facility]. [address] [place] [address] PCP - General Neurology 07/26/20 05/15/24 Daniel Gannon ND [address] [place] [address] [place] [address] PCP - General Naturopathic Medicine 05/16/24 documented as of this encounter
--- OUTSIDE RECORDS SUMMARY | 2024-06-12 19:11 | XMS_ITS | Encounter Summary ---
Author Organization [facility] Address [address] [place] [address] Care Team Providers Care Water Fabricator Operator Name Role Phone Kenny Salazar MD Primary Care Provider [phone]- [phone] Reason for Visit * Reason Onset Date Comments Medication Management 11/12/2020 Encounter Details Date Type Department Care Team (Late st Contact Info) Description 11/12/2020 Telephone [facility] Neurophysiology - [facility] ([place] [address]) [address] [place] [address] Kenny Salazar MD [address] [facility]. [address] [place] [phone] Medication Management Social History Tobacco Use Types [...] encounter Miscellaneous Notes * Telephone Encounter - Leno Gerard RN - 11/12/2020 0319 EDT Labs TCPAULIE advised if they are having labs drawn at [facility] we will automatically get results and if they don't hear from us within a few days of labs to call for results. Advised if they're having them done outside of [facility] to request results be faxed to us, provided [facility] fax number. * Telephone Encounter - Luis MMayelina - 11/12/2020 7428 EDT Cherri called to check the status of Henri's medication increase. I advised per the 11/[address] Salazar wants Henri to get lab work done to check lamotrigine levels before making changes. She advised they are having labs drawn tomorrow - would love a call within a couple of days with the results and status of med increase. She feels he is coming up on the 60 day matthew where he seems to have a seizure and is trying to stay ahead of it. Requesting call back documented in this encounter Plan of Treatment Upcoming Encounters Date Type Department Care Team (Late st Contact Info) Description 08/24/2024 14:15 EDT Office Visit [facility] Rheumatology & Immunology - [address] [phone] Chantel Juan MD [address] [place] [phone] documented as of this encounter Visit Diagnoses Not on filedocumented in this encounter Care Teams Water Fabricator Operator Relationship Specialty Start Date End Date Kenny Salazar MD [address] [place] [address] [place]. [address] [place] [phone] PCP - General Neurology 07/26/20 05/15/24 documented as of this encounter
--- OUTSIDE RECORDS SUMMARY | 2024-06-12 19:11 | XMS_ITS | Encounter Summary ---
Author Organization [facility] Address [address] [place] [address] Care Team Providers Care Wood Patternmaker Apprentice Name Role Phone Kenny Salazar MD Primary Care Provider [phone]- [phone] Reason for Visit * Reason Onset Date Comments Medications Refill 01/01/2021 Encounter Details Date Type Department Care Team (Late st Contact Info) Description 01/01/2021 Telephone [facility] Neurophysiology [facility] ([place] [address]) [address] [place] [address] Kenny Salazar MD [address] [facility]. [address] [place] [address] Medications Refill Social History Tobacco Use Types [...] End Date lamoTRIgine (LAMICTAL) 100 mg tablet Take 3.5 Tablets by mouth daily. 105 Tablet 2 01/03/2021 4 documented in this encounter Miscellaneous Notes * Telephone Encounter - Shaneka Zavala RN - 01/03/2021 1410 EDT Rx sent electronically to pharmacy. Message left for pt * Telephone Encounter - Kenny Salazar MD - 01/03/2021 1312 EDT OK to give RX for Lamotrigine with refills to get through [facility]. * Telephone Encounter - Leon Gerard RN - 01/02/2021 1619 EDT Medication management TC from patient who confirms that he is requesting a refill of ZAVALA 350 mg daily. He has been on this dose with no side effects and request refill to supply until his Sep appt with [facility] at which time he'll transition care. Encounter routed to Dr. Salazar. * Telephone Encounter - Leno Gerard RN - 01/02/2021 1342 EDT Refill request for Lamotrigine Per 12/30 note from patient Duc, after my last seizure in september, i upped the meds another 50 mg to 350 based on shaneka saying you would want to continue to increase the dosage. Per chart patient has scheduled an appointment with [facility] on 02/19/21. TC to patient attemptingto confirm that they are transferring care and requesting refills to supply until appointment with [facility]. Someone answered and then hung up, on retry went to [facility]. [facility] requesting return call. * Telephone Encounter - Lorene Duran - 01/01/2021 1517 EDT Patient calling for refill oflamoTRIgine (LAMICTAL) 100 mg tablet And clarification of dosage. He received message previously stating recommended to go up 50 mg so he did. He has been taking 350 mg per day not 300 so that needs to be confirmed. Medication Refill Medication(s) Requested: lamoTRIgine (LAMICTAL) 100 mg tablet Pharmacy (reconcile pharmacy list):[id number] - [place], [place] - [facility] Is patient out of medication? No Lorene Duran 115:18 documented in this encounter Plan of Treatment Upcoming Encounters Date Type Department Care Team (Late st Contact Info) Description 08/24/2024 14:15 EDT Office Visit [facility] Rheumatology & Immunology - [facility] [address] [place], [place] [address] Chantel Juan MD [address] [place], [place] [address] documented as of this encounter Visit Diagnoses Not on filedocumented in this encounter Discontinued Medications Medication Sig Discontinue Reason Start Date End Da te lamoTRIgine (LAMICTAL) 100 mg tablet Increase as directed up to 300 mg daily Reorder 09/05/2020 01/03/2021 documented as of this encounter Care Teams Wood Patternmaker Apprentice Relationship Specialty Start Date End Date Kenny Salazar MD [address] [place] [address]. [address] [place] [address] PCP - General Neurology 07/26/20 05/15/24 documented as of this encounter
--- OUTSIDE RECORDS SUMMARY | 2024-06-12 19:11 | XMS_ITS | Encounter Summary ---
Author Organization [facility] Address [address] [place] [address] Care Team Providers Care Food Service Utility Worker Name Role Phone Kenny Salazar MD Primary Care Provider +1- [phone] Encounter Details Date Type Department Care Team (Latest Contact Info) Description 09/03/2020 Travel Social History Tobacco Use Types Packs/Day [...] Info) Description 08/24/2024 14:15 EDT Office Visit [facility] Rheumatology & Immunology - [facility] [address] [place], [place] [phone] Chantel Juan MD [address] [place], [place] [address] documented as of this encounter Visit Diagnoses Not on filedocumented in this encounter Care Teams Food Service Utility Worker Relationship Specialty Start Date End Date Kenny Salazar MD [address] [place] [address], [place]. [address] [place] [phone] PCP - General Neurology 07/26/20 05/15/24 documented as of this encounter
--- OUTSIDE RECORDS SUMMARY | 2024-06-12 19:11 | XMS_ITS | Encounter Summary ---
Author Organization [facility] Address [address] [place] [address] Care Team Providers Care Metal Template Maker Name Role Phone Kenny Salazar MD Primary Care Provider +1- [phone] Encounter Details Date Type Department Care Team (Latest Contact Info) Description 08/15/2020 Travel Social History Tobacco Use Types Packs/Day [...] [facility] Rheumatology & Immunology - [address] [phone] Chantel Juan MD [address] [place], [place] [address] documented as of this encounter Visit Diagnoses Not on filedocumented in this encounter Care Teams Metal Template Maker Relationship Specialty Start Date End Date Kenny Salazar MD [address] [place] [address], [place]. [address] [place] [phone] PCP - General Neurology 07/26/20 05/15/24 documented as of this encounter
--- OUTSIDE RECORDS SUMMARY | 2024-06-12 19:11 | XMS_ITS | Encounter Summary ---
Author Organization [facility] Address [address] [place] [address] Care Team Providers Care Lens Block Gauger Name Role Phone Kenny Salazar MD Primary Care Provider +1- [phone] Reason for Visit * Reason Onset Date Comments New/Evolving Symptoms 10/01/2020 seizure Referral Request 10/01/2020 request for ref erral Encounter Details Date Type Department Care Team (Late st Contact Info) Description 10/01/2020 Telephone [facility] Neurophysiology - [facility] ([place] [address]) [address] [place] [address] Kenny Salazar MD [address] [facility]. [address] [place] [phone] New/Evolving Symptoms (seizure); Referral Request (request for referral) Social History Tobacco Use Types Packs/Day Years [...] Telephone Encounter - Shaneka Zavala RN - 11/01/2020 1204 EDT I called and left message for Feliciano to call * Telephone Encounter - Kenny Salazar MD - 11/01/2020 1053 EDT Please get a trough ZAVALA level (last on Aug). After review will arrange to increase dose. * Telephone Encounter - Shaneka Zavala RN - 10/21/2020 1230 EDT Message from phone staff Diana Tre: Feliciano calling with question about his Lamotrigine medication. He's been on a 300mg dose since September, and is wondering when how much this should increase to. ?? Please call to advise at [phone]. ?? Also, he scheduled an in person follow up with Dr. Salazar for 12/09/20 at 1:30pm * Telephone Encounter - Wandy Dyson - 10/18/2020 1422 EDT Pt called back to speak to nithin Munroe to transfer * Telephone Encounter - Shaneka Zavala RN - 10/02/2020 1446 EDT Reason for contact: Seizure 09/26/2020 Pt last seen 08/20/2020. Pt had reported seizure on 07/24/2020 and Lamotrigine was increased to 300 mg/day Per , pt had seizure out of sleep at 445 am on 09/26/2020.She states he sat up in bed, was covered with sweat and was looking around the room. He seemed disoriented. She had him lie down on his side and then he started to have the seizure. She states his body was violently jerking, head turned to the right. Legs were locked and shaking. Arms were bent at elbows and shaking. She states he had post ictal breathing for 25-30 min after the seizure ended. His arms flailed a few time and he sat up a couple of times and seemed disoriented. He then fell back to sleep for an hour. states pt had just had cranial sacral light touch therapy and the therapist had perceived a lot of electrical activity during the treatment so she had not been surprised that he had had the seizure. also states they are seeing a chiropractor and would like to approach seizure control inmultiple ways, not just medication management. states they have an appt at the [facility] for an internal medicine visit. She also mentionedwanting Dr Salazar to refer pt to a Dr Alvarez, psychiatrist at [facility]. I spoke with pt. He states he has the appt with [facility] in November. He does not want to make any changes to his Lamotrigine at this time and does not want a visit with Dr Salazar at this time He said he will call back after the [facility] visit and perhaps have a better idea of what he wants to aplan going forward Current AED: Lamotrigine 100 mg, 3 tabs once daily 09/03/2020: Zavala level 4.6 drawn at 0855 am Per , using a pill box and no missed doses of medicine. Not ill. Not sleep deprived. No stress.Denies alcohol intake. Pt due to rtc February [address] Salazar * Telephone Encounter - Lior Severino - 10/01/2020 1242 EDT Spouse calls to report pt had a seizure on 09/26/20 and they were told to call and report any additional seizures. Spouse calls in to report. Spouse reports that seizures always happen between 4am and 6am while pt is asleep. Pt was awake this time, was woken up by seizure perhaps. Seizure last 2 minutes and then breathing is odd for about 25 minutes. Breathing is labored. Pt also states that pt started cranial sacral work and the night before the seizure pt felt sensations in the area that had been worked during the cranial sacral session. Person who does that work told pt it will lower the seizure threshold and seizures are possible from the cranial sacral work. Pt has another appt scheduled for 10/07/20 for the sacral work. Pt and spouse both want to Martin to know this is happening. Spouse states pt is discouraged and they want to start seeing a team at [facility] in addition to [facility]. Spouse would like a referral to [facility]. Will Dr. Salazar please place a referral to [facility] for this pt's Neuro needs. documented in this encounter Plan of Treatment Upcoming Encounters Date Type Department Care Team (Late st Contact Info) Description 08/24/2024 14:15 EDT Office Visit [facility] Rheumatology & Immunology - [address] [address] Chantel Juan MD [address] [place] [phone] documented as of this encounter Visit Diagnoses Not on filedocumented in this encounter Care Teams Lens Block Gauger Relationship Specialty Start Date End Date Kenny Salazar MD [address] [place] [address]. [address] [place] [phone] PCP - General Neurology 07/26/20 05/15/24 documented as of this encounter
--- OUTSIDE RECORDS SUMMARY | 2024-06-12 19:11 | XMS_ITS | Encounter Summary ---
Author Organization [facility] Address [address] [place] [address] Care Team Providers Care Web Analyst Name Role Phone Kenny Salazar MD Primary Care Provider +1- [phone] Reason for Visit * Reason Onset Date Comments Medication Management 12/30/2020 Encounter Details Date Type Department Care Team (Late st Contact Info) Description 12/30/2020 Telephone [facility] Neurophysiology - [facility] ([place] [address]) [address] [place] [address] Kenny Salazar MD [address] [facility]. [address] [place] [phone] Medication Management Social History Tobacco Use Types [...] Telephone Encounter - Shaneka Zavala RN - 12/30/2020 0833 EDT Reason for contact: Pt increased Lamotrigine dose on his own and is now running short on refills Pt last seen 08/20/2020. He canceled visit with Dr Salazar which had been scheduled for 12/09/2020 and requested neurologist that was not about to retire, could see by televideo and would help him moving forward. ?? Dr Salazar stated that he is not about to retire and does see pts by televideo but perhaps pt would benefit from a different neurologist ?? Message was left for pt on 12/12/2020 asking if he wanted to reschedule with another doctor of if he would be receiving care somewhere else. Pt had been taking Lamotrigine 300 mg once daily but note below indicates pt increased on his own to 350 mg once daily I called and left message for pt to call and clarify what his plans for follow up are as we did notbelieve he was going to continue following with Dr Salazar and now wants rx at a dose that Dr Salazar has not prescribed for him * Telephone Encounter - Shaneka Zavala RN - 12/30/2020 0832 EDT ----- Message ----- From: Feliciano Moore Sent: 12/27/2020 ?? 8:58 EDT To: Cnl Pss/Scheduling Subject: Appointment canceled ? Duc, after my last seizure in september, i upped the meds another 50mg to 350 based on shaneka saying you would want to continue to increase the dosage. ??I have been at 350 since september, and am having trouble with my refills. ??Obviously taking more than the dosage i am going thru them before the time is up. ??I have tried to get a refill once before, but they would not allow it based on the dosage and the number of days. ??I have 1 refill left, and i would like the new prescription to be modified to show the 350 that I am currently taking. ??Thank you documented in this encounter Plan of Treatment Upcoming Encounters Date Type Department Care Team (Late st Contact Info) Description 08/24/2024 14:15 EDT Office Visit [facility] Rheumatology & Immunology - [facility] [address] [place] [address] Chantel Juan MD [address] [place], [place] [phone] documented as of this encounter Visit Diagnoses Not on filedocumented in this encounter Care Teams Web Analyst Relationship Specialty Start Date End Date Kenny Salazar MD 111 [facility]. [address] [place] [phone] PCP - General Neurology 07/26/20 05/15/24 documented as of this encounter
--- OUTSIDE RECORDS SUMMARY | 2024-06-12 19:11 | XMS_ITS | Encounter Summary ---
Author Organization [facility] Address [address] [place] [address] Care Team Providers Care Dba Name Role Phone Kenny Salazar MD Primary Care Provider [phone] Reason for Visit * Reason Comments Follow-up Encounter Details Date Type Department Care Team (Late st Contact Info) Description 08/20/2020 8:05 EST - 08/20/2020 23:59 EST Hospital Encounter [facility] Neurophysiology - [facility] ([place] [address]) [address] [place] [address] Kenny Salazar MD [address] [facility]. [address] [place] [phone] Seizure (HCC-CMS) (Primary Dx) Discharge Disposition: Home or Self Care Social [...] this encounter Medications at Time of Discharge CANNABIDIOL, CBD, EXTRACT ORAL Take by mouth as needed. 05/16/2024 FOLIC ACID ORAL Take by mouth. 05/16 lamoTRIgine (LAMICTAL) 100 mg tablet As directed up to 200 mg daily 60 Tab 2 06/04/2020 09/05/2020 documented as of this encounter Discharge Disposition Disposition Code Departure Means Destination Home or Self Care documented in this encounter Progress Notes * Kenny Salazar MD - 08/20/2020 0900 EST Name: Feliciano Moore : 1980 [place], [place] Date: 08/20/2020 Epilepsy Program - Follow-Up Patient Visit CHIEF COMPLAINT: Seizures. Primary physician: Daniel Gannon; Feliciano Puentes HISTORY SINCE LAST VISIT: A 40 y.o. right handed man last evaluated at the time of our initial consultation of 04 JUN 2020. This visit is performed using a teleneurology interface ([employer]). The patient agrees to participate in the visit via a tele-neurology interface. The patient is at home and joined by cristina Harley. I am performing this visit from my office at the [facility], [address] [place] [address]. No one else is present in my office during the meeting. Lamotrigine started at our last visit and dose increased to 200 mg daily on 17 JUL 2020. Since that time his ZAVALA dose increased to 250 mg/d. Seizure frequency: 24 JUL 2020 Per , pt had seizure out of sleep on 07/24/2020. Seizure started at 550 am. She was awakened by hearing heavy breathing. She said his body then stiffened and shook. Seizure lasted about 1 min thenpt had heavy breathing for 10-15 min then went to sleep. He got up around 730 am with muscle soreness. Pt was exhausted all the next day. Prior to that event his last seizure on 23 MAY 2020. Earlier seizures in 2016- associated with ETOH, though he quit but had 3 in 2019 and this recent event. These attacks are bilateral major motor seizures w tongue bite and post-ictal encephalopathy. No aura and no focal sensorimotor postictal symptoms. Onset age 21 years and he recalls it was a Wednesday morning after his big birthday. Witnessed convulsion. Epilepsy Risk Factors: Reported being in an oxygen tent for the first few days after and had a paralyzed vocal cord. No school difficulty and graduated age 17 years. Age 17 years with LOC ~ 20 minutes, nasal fracture, broke floor of sinus, nasal septum, sheared lips from my face and 67 stiches, collar bone shatter, hip fracture. No post-neurological deficits. ETOH age 21 years, often binge, in his 20s he would drink 750 ml hard liquor. Sober JUL 2017. Remote cocaine. Antiseizure drug history: Zonisamide for about 3 weeks and perhaps a bit loopy and in addition he really didn't want to take a medication. ZAVALA started MAY 2021. Medication compliance: Using a pillbox and fills weekly The patient's side effects to the current antiepileptic medications are: none No Known Allergies Medication Sig ??? CANNABIDIOL, CBD, EXTRACT ORAL Take by mouth as needed. ??? FOLIC ACID ORAL Take by mouth. ??? lamoTRIgine (LAMICTAL) 100 mg tablet As directed up to 200 mg daily (Patient taking differently: Taking 250mg) Problem list, medical and surgical history reviewed and as documented in the electronic record. List includes classic migraine, HTN and aortic valve regurgitation. Syncopal episode x 1. Family History: No new update. Social History: and lives with son and . 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 No TOB and quit ETOH by 2019. REVIEW OF SYSTEMS: Review of Systems - No rash, tremor, balance issue or vision difficulty. PSYCH: They relay some childhood trauma. He sees a therapist, Marina Araiza, and seeing her for4 years. SLEEP: No problems voiced EXAMINATION: Healthy appearing adult man who is attentive, broad affect, good eye contact and excellent recall of alfred medical history. No ptosis. Horizontal and upward eye movement intact. No nystagmues. No facial asymmetry. No pronator drift and finger-nose testing symmetric with no resting or action tremor. PREVIOUS EVALUATIONS: MRI brain wo/w rick MS protocol 04/12/2015: Normal ?- MRI wo/w rick epilepsy protocol 11/26/2016: Normal ?- MRI brain 3T w/wo contrast (02/02/2017 @ [facility]): Normal study. ?? EEG: ?- Standard EEG 11/26/2016: Normal ?- Standard EEG 12/16/2016: Normal - 72-hour ambulatory EEG ( January 2017 @ [facility]): Normal study Impression & Plan Epilepsy, probable despite history of normal EEG and MR studies and with some associated with alcohol use. Tolerating Lamotrigine well though one interim seizure from sleep. I review dosing issues and side effects related to ZAVALA and plan to increase dose to 300 mg/d. We review compliance issues. I urged him to call if he suffers another seizure. The following tests were ordered for the patient: ZAVALA levels Medication Regimen: Increase ZAVALA to 300 mg/d The patient was scheduled for a return visit in 6 months. Feliciano expressed understanding of and agrees with the above plan. The concept of ???Telemedicine?? has been described to the patient.? Patient has been informed of the anticipated benefits and possible risks.? Patient understands the information provided regardingtelemedicine, has had the opportunity to ask questions about this information, and all questions have been answered to patient???s satisfaction. Patient consents for the use of telemedicine in his/her medical care and authorizes the transmission of any relevant medical information to providers and their staff involved in patient???s medical or mental health care. Kenny Salazar MD 08/20/2020 9:05 documented in this encounter Plan of Treatment Upcoming Encounters Date Type Department Care Team (Late st Contact Info) Description 08/24/2024 14:15 EDT Office Visit [facility] Rheumatology & Immunology - [address] [phone] Chantel Juan MD [address] [place], [place] [phone] documented as of this encounter Results * LAMOTRIGINE (09/03/2020 8:55 EDT) Lamotrigine, S 4.6 2.5 - 15.0 mcg/mL 09/04/2020 15:34 EDT [facility] Comment: ADDITIONAL INFORMATION This test was developed and its performance characteristics determined by [facility] in a manner consistent with CLIA requirements. This test has not been cleared or approved by the U.S. Food and Drug Administration. Test Performed by: [facility] [address] [place] [address] Women'S Swim Coach: Ubaldo Gordon M.D. Ph.D.; CLIA# [id number] Blood VENOUS BLOOD / Unknown Venipuncture / Unknown 09/03/2020 8:55 EDT 09/03/2020 8:55 EDT Kenny Salazar MD CHEMISTRY & BLOOD GAS RHYS KING Final Result [facility] [address] [place] [address] documented in this encounter Visit Diagnoses Diagnosis Seizure ([facility])- Primary Other convulsions documented in this encounter Historical Medications * This list may reflect changes made after this encounter. FOLIC ACID ORAL Take by mouth. 05/16/2024 added in this encounter Care Teams Dba Relationship Specialty Start Date End Date Kenny Salazar MD [address] [place] [address]. [address] [place] [phone] PCP - General Neurology 07/26/20 05/15/24 documented as of this encounter
--- OUTSIDE RECORDS SUMMARY | 2024-06-12 19:11 | XMS_ITS | Encounter Summary ---
Author Organization [facility] Address [address] [place] [address] Care Team Providers Care Reheat Furnace Operator Name Role Phone Daniel Gannon DARSHANA Primary Care Provider [phone] Reason for Referral * Laboratory Services (Routine/Next Available) - New Request Specialty Diagnoses / Procedures Referred By Contac t Referred To Contact Diagnoses Pain and swelling of lower extremity, unspecified laterality Procedures SED RATE Tomy Hyde Chi, MD [address] [place] [phone] Phone: tel: fax: Referral ID Status Reason Start Date Expiration Date V isits Requested Visits Authorized [id number] New Request 05/22/2024 1 1 * Laboratory Services (Routine/Next Available) - New Request Specialty Diagnoses / Procedures Referred By Contbaylee t Referred To Contact Diagnoses Pain and swelling of lower extremity, unspecified laterality Procedures C REACTIVE PROTEIN Tomy Hyde Chi, MD [address] [place] [phone] Phone: tel: fax: Referral ID Status Reason Start Date Expiration Date V isits Requested Visits Authorized [id number] New Request 05/22/2024 1 1 * Vascular Lab (Routine) - Authorization Not Required Specialty Diagnoses / Procedures Referred By Contac t Referred To Contact Diagnoses Pain and swelling of lower extremity, unspecified laterality Procedures US LOWER VENOUS DUPLEX Tomy Hyde Chi, MD [address] [place] [address], [address] [place] [address] Phone: tel: fax: External Referral ID Status Reason Start Date Expiration Date Visits Requested Visits Authorized [id number] Authorization Not Required 05/22/2024 1 1 Reason for Visit * Reason Onset Date Comments New/Evolving Symptoms 05/22/2024 Returning Call 05/22/2024 Ultrasound 05/22/2024 Encounter Details Date Type Department Care Team (Late st Contact Info) Description 05/22/2024 Telephone [facility] Rheumatology & Immunology - [address] [id number] Chantel Juan MD [address] [place], [place] [phone] New/Evolving Symptoms; Returning Call; Ultrasound Social History Tobacco Use Types Packs/Day Years [...] Date of Assessment Author No 11/26/2016 7:43 Tay Benson RN * Are you blind or do you have serious difficulty seeing, even when wearing glasses? Answer Date of Assessment Author No 11/26/2016 7:43 Tay Benson RN * Do you have serious [...] encounter Miscellaneous Notes * Telephone Encounter - Vaishnavi Orta RN - 05/23/2024 1626 EST Spoke with patient related to MD response. Patient verbalized understanding and is agreeable to plan. * Telephone Encounter - Chantel Juan MD - 05/23/2024 1613 EST I think the last DVT ultrasound was done for work up of his CVA but not during one of these episodes of swelling according to the patient and his partner. I think it is still worth completing despitelow suspicion Thanks! * Telephone Encounter - Pablo Monet - 05/23/2024 1109 EST PCP office calling to let Dr Galindo know the patient had A DVT US completed in March and the patient didn't know if they still needed to get the one completed that was ordered 05-22-24 at [facility] Please call patient to discuss * Telephone Encounter - Ema Gutierrez RN - 05/22/2024 1439 EST Spoke with [facility] lab. They were able able to add on an ESR and CRP to today's blood work. I called Radiology scheduling and they are not able to see pt today but can see him first thing Wednes morning. Notified pt R/T above. He is at hospital now and will stop by Radiology to get details. * Telephone Encounter - Chantel Juan MD - 05/22/2024 1331 EST I am happy to order a DVT US to be done at [facility]. Please fax referral urgently, ideally would likescheduled within the next 2 days. The other thing we were considering was gout. I have no availability to get him in to be seen currently but I did request blood work from [facility] to check a uric acid level. I will add a CBC, CMP, andinflammatory markers to be done at [facility] too. Please fax these along as well. Thanks! * Telephone Encounter - Ema Gutierrez RN - 05/22/2024 0932 EST Spoke with pt. He has a discomfort in his left foot that started yesterday. It feels like a constant cramp and what he has had prior to last bouts of cellulitis. He has no redness, heat or swelling. Yet. He'd like to get an ULS to confirm it's cellulitis and not a blood clot. Prefers [facility] whichis closer to where he lives. Please advise. * Telephone Encounter - Leticia Westfall - 05/22/2024 0931 EST Reason for Call: New/Evolving Symptoms and Returning Call Summary/Symptoms: Patient returned call. Transferred to Ema Westfall 05/22/2024 9:32 * Telephone Encounter - Ema Gutierrez, RN - 05/22/2024 0926 EST I called pt but we had a bad connection. He believes he's getting cellulitis in LLE again and is asking for a ULS today. Before he could give me more info, our call was disconnected. * Telephone Encounter - Dominique Rosales - 05/22/2024 0806 EST Patient believes he is experiencing the beginning of a cellulitis flare in left leg and would like to have ultrasound today so stay ahead of it per discussion with Dr. Juan. Please advise. Patient notes he is having lab work at [facility] today at 1230. documented in this encounter Plan of Treatment Upcoming Encounters Date Type Department Care Team (Late st Contact Info) Description 08/24/2024 14:15 EDT Office Visit [facility] Rheumatology & Immunology - [address] [id number] Chantel Juan MD [address] [place], [place] [phone] Scheduled Orders Name Type Priority Associated Diagnoses Orde r Schedule US LOWER VENOUS DUPLEX Vascular Ultrasound Routine Pain and swelling of lower extremity, unspecified laterality Expected: 05/22/2024 (Approximate), Expires: 11/20/2025 C REACTIVE PROTEIN Lab Routine Pain and swelling of lower extremity, unspecified laterality Expected: 05/22/2024 (Approximate), Expires: 08/20/2024 SED RATE Lab Routine Pain and swelling of lower extremity, unspecified laterality Expected: 05/22/2024 (Approximate), Expires: 08/20/2024 documented as of this encounter Visit Diagnoses Diagnosis Pain and swelling of lower extremity, unspecified laterality- Primary documented in this encounter Care Teams Reheat Furnace Operator Relationship Specialty Start Date End Date Daniel Gannon, DARSHANA [address] [place] [address] [place] [address] PCP - General Naturopathic Medicine 05/16/24 documented as of this encounter
--- OUTSIDE RECORDS SUMMARY | 2024-06-12 19:11 | XMS_ITS | Encounter Summary ---
Author Organization [facility] Address [address] [place] [address] Care Team Providers Care Hvac/R Service Technician Name Role Phone Daniel Gannon DARSHANA Primary Care Provider [phone] Reason for Referral * Laboratory Services (Routine/Next Available) - New Request Specialty Diagnoses / Procedures Referred By Contac t Referred To Contact Diagnoses Pain in joint involving ankle and foot, unspecified laterality Procedures URIC ACID Tomy Hyde Chi, MD [address] [place] [phone] Phone: tel: fax: Referral ID Status Reason Start Date Expiration Date V isits Requested Visits Authorized [id number] New Request 05/16/2024 1 1 * Laboratory Services (Routine/Next Available) - New Request Specialty Diagnoses / Procedures Referred By Contac t Referred To Contact Diagnoses Non-bacterial thrombotic endocarditis Procedures PHOSPHOLIPID ANTIBODY Tomy Hyde Chi, MD [address] [address] Phone: tel: fax: Referral ID Status Reason Start Date Expiration Date V isits Requested Visits Authorized [id number] New Request 05/16/2024 1 1 * Laboratory Services (Routine/Next Available) - New Request Specialty Diagnoses / Procedures Referred By Contac t Referred To Contact Diagnoses Non-bacterial thrombotic endocarditis Procedures COMPREHENSIVE METABOLIC PANEL (CMP) Tomy Hyde Chi, MD [address] [place], [place] [id number] Phone: tel: fax: Referral ID Status Reason Start Date Expiration Date V isits Requested Visits Authorized [id number] New Request 05/16/2024 1 1 * Laboratory Services (Routine/Next Available) - New Request Specialty Diagnoses / Procedures Referred By Contac t Referred To Contact Diagnoses Non-bacterial thrombotic endocarditis Procedures COMPLETE BLOOD COUNT AND DIFFERENTIAL Tomy Hyde Chi, MD [address] [place], [place] [address] Phone: tel: fax: Referral ID Status Reason Start Date Expiration Date V isits Requested Visits Authorized [id number] New Request 05/16/2024 1 1 * Laboratory Services (Routine/Next Available) - New Request Specialty Diagnoses / Procedures Referred By Contac t Referred To Contact Diagnoses Non-bacterial thrombotic endocarditis Procedures BETA 2 GLYCOPROTEIN IGM Tomy Hyde Chi, MD [address] [place], [place] [phone] Phone: tel: fax: Referral ID Status Reason Start Date Expiration Date V isits Requested Visits Authorized [id number] New Request 05/16/2024 1 1 * Laboratory Services (Routine/Next Available) - New Request Specialty Diagnoses / Procedures Referred By Contac t Referred To Contact Diagnoses Non-bacterial thrombotic endocarditis Procedures BETA 2 GLYCOPROTEIN IGG Tomy Hyde Chi, MD [address] [place], [place] [address] Phone: tel: fax: Referral ID Status Reason Start Date Expiration Date V isits Requested Visits Authorized [id number] New Request 05/16/2024 1 1 * Radiology Services (Routine/Next Available) - Authorization Not Required Specialty Diagnoses / Procedures Referred By Contac t Referred To Contact Diagnoses Chronic bilateral low back pain without sciatica Procedures XR SACROILIAC JOINTS 3 OR MORE VIEWS Tomy Hyde Chi, MD [address] [place], [place] [id number] Phone: tel: fax: [facility] Referral ID Status Reason Start Date Expiration Date Visits Requested Visits Authorized [id number] Authorization Not Required 05/16/2024 1 1 * Radiology Services (Routine/Next Available) - Authorization Not Required Specialty Diagnoses / Procedures Referred By Contac t Referred To Contact Diagnoses Chronic bilateral low back pain without sciatica Procedures XR LUMBAR SPINE 2-3 VIEWS Tomy Hyde Chi, MD [address] [place], [place] [address] Phone: tel: fax: [facility] Referral ID Status Reason Start Date Expiration Date Visits Requested Visits Authorized [id number] Authorization Not Required 05/16/2024 1 1 * Radiology Services (Routine/Next Available) - Authorization Not Required Specialty Diagnoses / Procedures Referred By Contac t Referred To Contact Diagnoses Pain in joint involving ankle and foot, unspecified laterality Procedures XR RHEUMATOLOGY BILATERAL FEET 2 VIEWS EACH FOOT Tomy Hyde Chi, MD [address] [place], [place] [address] Phone: tel: fax: [facility] Referral ID Status Reason Start Date Expiration Date Visits Requested Visits Authorized [id number] Authorization Not Required 05/16/2024 1 1 Reason for Visit * Reason Comments New Patient Visit * Referral (Urgent) - Receiving Office to Obtain Authorization Specialty Diagnoses / Procedures Referred By Contac t Referred To Contact Rheumatology Diagnoses Endocarditis, valve unspecified Kris Crawford MD [address] [place] [phone] Phone: tel: fax: Chantel Juan MD [address] [place] [address] Phone: tel: fax: Referral ID Status Reason Start Date Expiration Date Visits Requested Visits Authorized [id number] Receiving Office to Obtain Authorization 1 1 Encounter Details Date Type Department Care Team (Late st Contact Info) Description 05/16/2024 9:45 EST Office Visit [facility] Rheumatology & Immunology - [address] [phone] Chantel Juan MD [address] [place] [phone] Non-bacterial thrombotic endocarditis (Primary Dx); Chronic bilateral low back pain without sciatica; Neck pain; Pain in joint involving ankle and foot, unspecified laterality Social History Tobacco Use Types Packs/Day Years [...] on file documented as of this encounter Last Filed Vital Signs Vital Sign Reading Time Taken Comments Blood Pressure 151/66 05/16/2024 0933 EST Pulse 81 05/16/2024 0933 EST Temperature 36.3 ??C (97.4 ??F) 05/16/2024 0933 EST Respiratory Rate - - Oxygen Saturation - - Inhaled Oxygen Concentration - - Weight - - Height 195 cm (6' 4.77) 05/16/2024 0933 EST Body Mass Index - - documented in this encounter Functional Status * Are you [...] Jose Valero RN documented in this encounter Patient Instructions * Patient Instructions* Chantel Juan MD - 05/16/2024 9:45 EST - You were referred to us for concern for nonbacterial thrombotic endocarditis as an etiology for your stroke. This can sometimes be associated with lupus however your blood work for this is normal. It can also be associated with something called antiphospholipid syndrome. I will complete testing for that today. - If this is positive we will call you and have you come back for an office visit - For the recurrent episodes of cellulitis, I will check a uric acid and x-rays of your feet/anklesto look for gout which can mimic cellulitis. - For your back pain for the last ~20 years I will get x-rays if there is something inflammatory causing your back pain. - We will see you back in 3 months, but if everything is normal you can cancel that appointment documented in this encounter Progress Notes * Chantel Juan MD - 05/16/2024 0945 EST Images from the original note were not included. [facility] Rheumatology Initial Patient Visit Chief Complaint: Feliciano Moore presents today for New Patient Visit . Patient ID: Feliciano Moore Date of Service: 05/16/24 Patient age: 44 y.o. Patient gender: male Subjective / HPI: Feliciano Moore is an 44 y.o. male with a PMH significant for epilepsy, eczema, recent CVA in 02/2024. Patient presented to [facility] rheumatology clinic for a new patient assessment for non-bacterial thrombotic endocarditis. Patient was referred to rheumatology from his needle loom operator Dr. Kris Crawford. Patient had a recent CVAin 02/2024. Workup was notable for TTE with moderate to severe aortic insufficiency and moderate mitral regurgitation. Sports Recruiter has reviewed images with subspecialty cardiology in addition and appearance of TTE most concerning for NBTE. He was referred to us for evaluation of rheumatologic cause of NBTE. He has had 2 outbreaks of cellulitis involving his feet. Right before the CVA he had a back injury and was not moving for a week before CVA. He had erythema and swelling of his leg, his sister [place] is a RN was concerned for cellulitis. He was seen in the ED for worsening leg swelling and erythema. He was given another antibiotic course which took a long time to resolve despite antibiotics. He has never had ultrasound. He noticed itwas painful with walking/sitting. 03/29/24. He did notice swelling in the ankle. Both were in middle of March. He does have numbness in his mouth and diplopia in L eye as residual symptoms after CVA. He is working with OT. He has night sweats, on and off for about a year. Weight loss associated with stopping EtOH use in 6 years, but now goes up and down usually between 175 and 185. He does endorse diffuse joint pain. He reports whole body aches at night-time. His symptoms startedafter the CVA. He notes improvement with activity. He wakes up in the AM with pain, improves with movement. Stiffness notes all the time. He has known cervical spine degenerative disc disease, has painful radiation down R arm. XR done last year in [place] which is who it was diagnosed. He was seen by [facility] once for this. He has frequent flares of low back pain since his early 20s, he will do certain movements and he will know right away that his back will be bad for awhile. Most recent flare was after moving a trailer by hand. He noticed he has Raynaud's in a single finger at a time only in the past 2 years or so. He takes naproxen pretty rarely. Eliquis was started by needle loom operator 2 weeks ago. Review of Systems: Denies fevers Denies lacrimal, parotid or submandibular swelling. Denies sicca Denies oral ulcers Denies rashes Denies photosensitivity Denies red or painful eyes Denies hearing loss Denies chest pain, shortness of breath or cough. + occasional soft stools + joint pain Denies joint swelling + Raynaud's Denies blood clots + CVA Denies alopecia 10 point ROS negative except as documented above. Family History: - Denies family history of inflammatory arthritis or autoimmune conditions (e.g.: rheumatoid arthritis, psoriasis, IBD or Ankylosing Spondylitis). - Mother: heart disease Social History: - Occupation: [employer] for 20 years, works outside. - . Lives with and son (13 yo) - Diet: Balanced - Exercise: Active - Non-smoker. No ETOH use, for the past 7 years. Occasional cannabis use Current Outpatient Medications Medication aspirin chewable 81 mg tablet ELIQUIS 5 mg tablet lamoTRIgine (LAMICTAL) 200 mg tablet naproxen (NAPROSYN) 500 mg tablet No current facility-administered medications for this visit. No Known Allergies PMH PSH Past Medical History: Diagnosis Date Cardiac murmur HTN (hypertension) Vocal cord paralysis, bilateral partial Past Surgical History: Procedure Laterality Date NASAL SEPTUM SURGERY Social History Family history Social History Tobacco Use Smoking status: Never Passive exposure: Never Smokeless tobacco: Never Substance Use Topics Alcohol use: Never History reviewed. No pertinent family history. Objective: BP (!) 151/66 (BP Cuff Location: Right arm, BP Patient Position: Sitting, BP Cuff Sizes: Adult, regular) Pulse 81 Temp 36.3 ??C (97.4 ??F) (Tympanic) Ht (!) 195 cm (76.77) BMI 21.23 kg/m?? Body mass index is 21.23 kg/m??. General: No acute distress. Alert, fully oriented, pleasant, conversant. HEENT: Conjunctivae/corneas clear. Pupils equal, Sclerae anicteric. Mucus membranes moist; oropharynx clear. Lungs: Normal expansion. Clear to auscultation bilaterally with no crackles, crepitations or wheeze. No lymphadenopathy. No oral ulcers Heart: Regular rate and rhythm, no murmur Abdomen: Soft, non-tender, non-distended. Extremities: Extremities without cyanosis or edema. Skin: No rashes or lesions Musculoskeletal: Hand: No synovitis or effusion. Appropriate range of motion. Elbow: No synovitis or effusion. Appropriate range of motion. Shoulder: No synovitis or effusion. Appropriate range of motion. Spine: No tenderness upon palpation Hip: No tenderness upon palpating the greater trochanter. Appropriate range of motion. Knee: No synovitis or effusion. Appropriate range of motion. No tenderness on palpation of femoral epicondyle or tibial tuberosity. Ankles: No synovitis or effusion. Appropriate range of motion. Feet: Negative MTP squeeze. Workup: Labs: Lab Results Component Value Date WBC 5.57 07/26/2020 HGB 13.8 07/26/2020 HCT 40.8 07/26/2020 MCV 90 07/26/2020 PLT 192 07/26/2020 Lab Results Component Value Date BUN 23 12/02/2020 CREATININE 0.92 12/02/2020 AST 62 (H) 12/02/2020 ALT 54 (H) 12/02/2020 No results found for: SEDRATE, CRP Lab Results Component Value Date RF <8.6 04/11/2024 MARISOL Negative 04/11/2024 Imaging: Results notable for :. TTE 03/2019 TTE 03/2024: Assessment & Plan: Feliciano Moore is an 44 y.o. male with a PMH significant for epilepsy, eczema, recent CVA in 02/2024. Patient presented to [facility] rheumatology clinic for a new patient assessment for non-bacterial thrombotic endocarditis. # Recent CVA # Concern for non-bacterial thrombotic endocarditis Patient with history of CVA in 03/2024 at young age. Case discussed with primary needle loom operator who reviewed TTE in detail and was concern for nonbacterial thrombotic endocarditis. Initial workup notable for negative MARISOL, negative lupus anticoagulant, negative RF/CCP. Today's suspicion for SLE is low in the setting of a negative MARISOL. Antiphospholipid syndrome is still on the differential diagnosis and we will obtain serologies today for further workup. - check beta 2 glycoprotein and antiphospholipid antibodies today - check CBC, CMP - agree with management from cardiology - if evidence of APLS would need to switch Eliquis to Warfarin - follow up in 3 months, if work up returns normal can cancel appointment # Recurrent cellulitis overlying ankle Interestingly patient reports 2 episodes of inflammation involving ankles treated for cellulitis inthe past month. History could be consistent with gout which is a mimicker of cellulitis or of VTE (although localization around ankle joint this is less likely). I will check uric acid level and bilateral feet XR to evaluate for erosive changes related to gout. If these are normal would be reassured these episodes were likely cellulitis with just coincidental timing. - check uric acid - bilateral feet XR # Chronic low back pain History of chronic low back pain dating to age 20. Features most consistent with a mechanical or degenerative back injury, however given young age of onset will obtain XR lumbar spine and XR SI joints to evaluate for inflammatory axial spondyloarthropathy. Given a patient has had symptoms for 25 years would expect changes related on XR imaging so would not need advanced imaging to diagnose. - XR SI joints - XR lumbar spine Patient seen and examined with Dr. Barrett Juan MD ([id number] Rheumatology Fellow) Thank you for involving the rheumatology team in the care of this patient. I spent a total of 60 minutes on the date of this encounter meeting with the patient and reviewing documentation/coordinating care as described in the above note. No procedures were performed at the time of the visit. Attestation statement: I interviewed and examined the patient with the fellow. I agree with the findings and plan of care documented in the fellow's note. Tomy Hyde MD 05/16/2024 documented in this encounter Plan of Treatment Upcoming Encounters Date Type Department Care Team (Late st Contact Info) Description 08/24/2024 14:15 EDT Office Visit [facility] Rheumatology & Immunology - [address] [id number] Chantel Juan MD [address] [place] [phone] Scheduled Orders Name Type Priority Associated Diagnoses Orde r Schedule BETA 2 GLYCOPROTEIN IGG Lab Routine Non-bacterial thrombotic endocarditis Ordered: 05/16/2024 BETA 2 GLYCOPROTEIN IGM Lab Routine Non-bacterial thrombotic endocarditis Ordered: 05/16/2024 COMPLETE BLOOD COUNT AND DIFFERENTIAL Lab Routine Non-bacterial thrombotic endocarditis Expected: 05/16/2024 (Approximate), Expires: 05/16/2025 COMPREHENSIVE METABOLIC PANEL (CMP) Lab Routine Non-bacterial thrombotic endocarditis Expected: 05/16/2024 (Approximate), Expires: 08/14/2024 PHOSPHOLIPID ANTIBODY Lab Routine Non-bacterial thrombotic endocarditis Expected: 05/16/2024 (Approximate), Expires: 05/16/2025 URIC ACID Lab Routine Pain in joint involving ankle and foot, unspecified laterality Expected: 05/16/2024 (Approximate) documented as of this encounter Results * XR RHEUMATOLOGY BILATERAL [...] bilaterally. Soft tissues are otherwise grossly unremarkable. [id number] Narrative 05/22/2024 12:25 EST EXAM/TECHNIQUE: XR RHEUMATOLOGY BILATERAL FEET 2 VIEWS EACH FOOT ??05/16/2024 11:22 AM HISTORY: arthralgia ? bony erosions ? chondrocalcinosis ? inflammatory ? degenerative COMPARISON: None. Resulting Agency Comment [id number] Procedure Note Jensen Tenorio MD - 05/22/2024 [...] calcaneusbilaterally. Soft tissues are otherwise grossly unremarkable. [id number] us Tomy Hyde MD [facility] [place] [place] ORDERABLE S Final Result * XR LUMBAR SPINE 2-3 VIEWS (05/16/2024 11:48 EST) Anatomical Region Laterality Modality Spine Computed Radiogr aphy 05/16/2024 11:5 3 EST Impressions 05/17/2024 14:59 EST Osseous findings as above. THIS DOCUMENT HAS BEEN ELECTRONICALLY SIGNED BY NASEEM CALDERON MD FOR ANY QUESTIONS OR CONCERNS REGARDING THIS REPORT PLEASE CALL [facility] AT [phone] Narrative 05/17/2024 14:59 EST PROCEDURE INFORMATION: Exam: [...] CONCERNS REGARDING THIS REPORT PLEASE CALL [facility] [phone] Tomy Hyde MD IM DIAGNOSTIC IMAGING ORDERABLE S Final Result * [...] is age-appropriate. Soft tissues are grossly unremarkable. [id number] Narrative 05/22/2024 12:21 EST EXAM/TECHNIQUE: XR SACROILIAC JOINTS 3 OR MORE VIEWS ??05/16/2024 11:22 AM HISTORY: lower back pain ? sacroiliitis ? bony erosions COMPARISON: None. Resulting Agency Comment [id number] Procedure Note Jensen Tenorio MD - 05/22/2024 [...] Mineralization isage-appropriate. Soft tissues are grossly unremarkable. [id number] Tomy Hyde MD IMG DIAGNOSTIC IMAGING ORDERABLE S Final Result documented in this encounter Visit Diagnoses Diagnosis Non-bacterial thrombotic endocarditis- Primary Endocarditis, valve unspecified, unspecified cause Chronic bilateral low back pain without sciatica Neck pain Cervicalgia Pain in joint involving ankle and foot, unspecified laterality Pain in joint involving ankle and foot, unspecified laterality Chronic bilateral low back pain without sciatica Chronic bilateral low back pain without sciatica documented in this encounter Discontinued Medications Medication Sig Discontinue Reason Start Date End Da te lamoTRIgine (LAMICTAL) 100 mg tablet Take 3.5 Tablets by mouth daily. Alternate therapy 01/03/2021 05/16/2024 FOLIC ACID ORAL Take by mouth. Therapy completed 05/16/2024 clopidogreL (PLAVIX) 75 mg tablet Take 1 Tablet by mouth daily. Therapy completed 05/16/2024 CANNABIDIOL, CBD, EXTRACT ORAL Take by mouth as needed. Therapy completed 05/16/2024 documented as of this encounter Historical Medications * This list may reflect changes made after this encounter. naproxen (NAPROSYN) 500 mg tablet Take 1-2 Tablets by mouth as needed. aspirin chewable 81 mg tablet Take 1 Tablet by mouth daily. lamoTRIgine (LAMICTAL) 200 mg tablet Take 1 Tablet by mouth 2 times daily. 10/04/2023 ELIQUIS 5 mg tablet Take 1 Tablet by mouth 2 times daily. clopidogreL (PLAVIX) 75 mg tablet Take 1 Tablet by mouth daily. 05/16/2024 added in this encounter Care Teams Hvac/R Service Technician Relationship Specialty Start Date End Date Daniel Gannon ND [address] [place] [address] [place] [address] PCP - General Naturopathic Medicine 05/16/24 documented as of this encounter
--- OUTSIDE RECORDS SUMMARY | 2024-06-12 19:11 | XMS_ITS | Encounter Summary ---
Author Organization [facility] Address [address] [place] [address] Care Team Providers Care Software Configuration Analyst Name Role Phone Kenny Salazar MD Primary Care Provider [phone]- [phone] Encounter Details Date Type Department Care Team (Late st Contact Info) Description 10/08/2020 Orders Only [facility] Cardiology - [facility] [address] [place] [address] Ubaldo Beal MD [address] [place] [address] Nonrheumatic aortic valve insufficiency (Primary Dx) Social History Tobacco Use Types Packs/Day Years [...] Visit [facility] Rheumatology & Immunology - [address] [phone] Chantel Juan MD [address] [place], [place] [address] documented as of this encounter Visit Diagnoses Diagnosis Nonrheumatic aortic valve insufficiency- Primary Aortic valve disorders documented in this encounter Care Teams Software Configuration Analyst Relationship Specialty Start Date End Date Kenny Salazar MD [address] [facility]. [address] [place] [id number] PCP - General Neurology 07/26/20 05/15/24 documented as of this encounter
--- OUTSIDE RECORDS SUMMARY | 2024-06-12 19:11 | XMS_ITS | Encounter Summary ---
Author Organization [facility] Address [address] [place] [address] Care Team Providers Care Wall Washer Name Role Phone Kenny Salazar MD Primary Care Provider +1- [phone] Reason for Referral * (Routine/Next Available) - Receiving Office to Obtain Authorization Specialty Diagnoses / Procedures Referred By Contac t Referred To Contact Procedures MR OUTSIDE IMAGES HEAD Imaging, External Referral ID Status Reason Start Date Expiration Date Visits Requested Visits Authorized [id number] Receiving Office to Obtain Authorization 03/14/2024 1 1 Reason for Visit * (Routine/Next Available) - Receiving Office to Obtain Authorization Specialty Diagnoses / Procedures Referred By Contac t Referred To Contact Procedures MR OUTSIDE IMAGES HEAD Imaging, External Referral ID Status Reason Start Date Expiration Date Visits Requested Visits Authorized [id number] Receiving Office to Obtain Authorization 03/14/2024 1 1 Encounter Details Date Type Department Care Team (Latest Contact Info) Description 03/14/2024 11:09 EDT Hospital Encounter [facility] Secondary Reads [place] Discharge Disposition: [...] Info) Description 08/24/2024 14:15 EDT Office Visit [facility] Rheumatology & Immunology - [facility] [address] [place], [place] [address] Chantel Juan MD [address] [place], [place] [id number] documented as of this encounter Procedures Procedure Name Priority Date/Time Associated Diagnosis Comments MR OUTSIDE IMAGES HEAD Routine 03/14/2024 11:11 EDT documented in this encounter Results * MR OUTSIDE IMAGES HEAD (03/14/2024 11:11 EDT) Narrative 03/14/2024 11:11 EDT This is a non-reportable exam. us External Imaging IMG OTHER IMAGING ORDERABLES Fi nal Result documented in this encounter Visit Diagnoses Not on filedocumented in this encounter Care Teams Wall Washer Relationship Specialty Start Date End Date Kenny Salazar MD [address] [facility] [place] [place] [address] PCP - General Neurology 07/26/20 05/15/24 documented as of this encounter
--- OUTSIDE RECORDS SUMMARY | 2024-06-12 19:11 | XMS_ITS | Encounter Summary ---
Author Organization [facility] [place] Address [address] [place] [address] Care Team Providers Care Shaping Machine Operator Name Role Phone Kenny Salazar MD Primary Care Provider +1- [phone] Reason for Visit * Reason Onset Date Comments Medication Questions 03/14/2024 Encounter Details Date Type Department Care Team (Late st Contact Info) Description 03/14/2024 Telephone [facility] NEUROLOGY [address], [place] [id number] Martin Purcell MD [address] [place] [phone] Medication Questions Social History Tobacco Use Types Packs/Day Years [...] Telephone Encounter - Martin Purcell MD - 03/14/2024 1129 EDT I was called from [facility] today on this patient whose last known well was around 05:00 today. 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 Patient had a CT head and CTA of head and neck done with no evidence of LVO, stenosis or other vascular malformations. No bleeding onhead CT. 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 Discussed with the provider that patient ought to be admitted for stroke work up. Not candidate forTNK or IR due to no LVO and outside the window. Plan to obtain echo with bubble study, event monitor, drug screen, inflammatory markers, CBC and CMP, cardiac enzymes, lipid panel, A1c and thyroid. Treatment would include him being a candidate for DAPT for 21 days then ASA 81 monotherapy, Angawmz52 mg and follow up with Stroke or his Neurologist, Dr Salazar. documented in this encounter Plan of Treatment Upcoming Encounters Date Type Department Care Team (Late st Contact Info) Description 08/24/2024 14:15 EDT Office Visit [facility] Rheumatology & Immunology - [address] [phone] Chantel Juan MD [address] [place], [place] [phone] documented as of this encounter Visit Diagnoses Not on filedocumented in this encounter Care Teams Shaping Machine Operator Relationship Specialty Start Date End Date Kenny Salazar MD [address] [place] [address]. [address] [place] [phone] PCP - General Neurology 07/26/20 05/15/24 documented as of this encounter
--- OUTSIDE RECORDS SUMMARY | 2024-06-12 19:11 | XMS_ITS | Encounter Summary ---
Author Organization [facility] Address [address] [place] [address] Care Team Providers Care Roller Name Role Phone Kenny Salazar MD Primary Care Provider [phone]- [phone] Reason for Visit * Reason Onset Date Comments Appointment Related 12/06/2020 Encounter Details Date Type Department Care Team (Late st Contact Info) Description 12/06/2020 Telephone [facility] Neurophysiology - [facility] ([place] [address]) [address] [place] [address] Kenny Salazar MD 111 [facility]. [address] [place] [phone] Appointment Related Social History Tobacco Use Types [...] Miscellaneous Notes * Telephone Encounter - Shaneka Gonzalez MA - 12/06/2020 1607 EDT Placed call to carla Harley , per Dr. Ceballos in basket message ,Please schedule f/u visit for 3 mos (supposed to be for next week, but just seen by neurologists in [place] and I want to review studies, consults before visit). - K Called and left message that appointment for 12/07 @ 130 is cancelled , left the call center # of [phone] to call and re schedule for 3 months . Shaneka * Telephone Encounter - JoseluisMillie - 12/06/2020 0932 EDT LVM for the patient to confirm 12/09/20 FUR appt. documented in this encounter Plan of Treatment Upcoming Encounters Date Type Department Care Team (Late st Contact Info) Description 08/24/2024 14:15 EDT Office Visit [facility] Rheumatology & Immunology [address] [phone] Chantel Juan MD [address] [place], [place] [phone] documented as of this encounter Visit Diagnoses Not on filedocumented in this encounter Care Teams Roller Relationship Specialty Start Date End Date Kenny Salazar MD [address] [place] [address]. [address] [place] [phone] PCP - General Neurology 07/26/20 05/15/24 documented as of this encounter
--- OUTSIDE RECORDS SUMMARY | 2024-06-12 19:11 | XMS_ITS | Encounter Summary ---
Author Organization [facility] Address [address] [place] [address] Care Team Providers Care Technical Marketing Consultant Name Role Phone Kenny Salazar MD Primary Care Provider +1- [phone] Reason for Referral * (Routine/Next Available) - Receiving Office to Obtain Authorization Specialty Diagnoses / Procedures Referred By Contac t Referred To Contact Procedures MR OUTSIDE IMAGES HEAD Imaging, External Referral ID Status Reason Start Date Expiration Date Visits Requested Visits Authorized [id number] Receiving Office to Obtain Authorization 4 1 1 Reason for Visit * (Routine/Next Available) - Receiving Office to Obtain Authorization Specialty Diagnoses / Procedures Referred By Contac t Referred To Contact Procedures MR OUTSIDE IMAGES HEAD Imaging, External Referral ID Status Reason Start Date Expiration Date Visits Requested Visits Authorized [id number] Receiving Office to Obtain Authorization 4 1 1 Encounter Details Date Type Department Care Team (Latest Contact Info) Description 03/14/2024 - 03/14/2024 11:08 EDT Hospital Encounter [facility] Secondary [place] Discharge Disposition: Home [...] 08/24/2024 14:15 EDT Office Visit [facility] Rheumatology & Immunology - [facility] [address] [place], [place] [address] Chantel Juan MD [address] [place] [address] documented as of this encounter Procedures Procedure Name Priority Date/Time Associated Diagnosis Comments MR OUTSIDE IMAGES HEAD Routine 03/14/2024 12:03 EDT documented in this encounter Results * MR OUTSIDE IMAGES HEAD (03/14/2024 12:03 EDT) Narrative 06/02/2024 12:03 EST This is a non-reportable exam. us External Imaging IMG OTHER IMAGING ORDERABLES Fi nal Result documented in this encounter Visit Diagnoses Not on filedocumented in this encounter Care Teams Technical Marketing Consultant Relationship Specialty Start Date End Date Kenny Salazar MD [address] [facility] [place]. [address] [place] [phone] PCP - General Neurology 07/26/20 05/15/24 documented as of this encounter
--- OUTSIDE RECORDS SUMMARY | 2024-06-12 19:11 | XMS_ITS | Encounter Summary ---
Author Organization [facility] Address [address] [place] [address] Care Team Providers Care Embroidery Operator Name Role Phone Kenny Salazar MD Primary Care Provider + [phone] Daniel Gannon ND Primary Care Provider [phone] Encounter Details Date Type Department Care Team (Late st Contact Info) Description 04/11/2024 Lab Requisition [facility] Pathology & Laboratory Medicine - [facility] [address] [place], [place] [address] Outr Resulting Lab, Provider Social History Tobacco [...] of Assessment Author No 11/26/2016 7:43 EDJose zAar RN * Do you have serious difficulty [...] 08/24/2024 14:15 EDT Office Visit [facility] Rheumatology & Immunology - [address] [phone] Chantel Juan MD [address] [place], [place] [phone] documented as of this encounter Procedures Procedure Name Priority Date/Time Associated Diagnosis Comments ANTI NUCLEAR AB (MARISOL), IFA Routine 04/11/2024 12:39 EDT documented in this encounter Results * ANTI NUCLEAR AB (MARISOL), IFA (04/11/2024 12:39 EDT) MARISOL Interpretation Negative Negative 2023 15:55 EDT [facility] Comment:No titer performed, MARISOL Screen is negative. Blood VENOUS BLOOD / Unknown 04/11/2024 12:39 EDT 04/11/2024 17:30 EDT Narrative [facility] - 04/12/2024 15:55 EDT Results were obtained with the [employer] NOVA Lite HEp-2 MARISOL Kit by indirect immunofluorescence. us Provider Outr Resulting Lab IMMUNOLOGY AND SEROL OGY ORDERABLES Final Result [facility] [address] [place], [place] [address] documented in this encounter Visit Diagnoses Not on filedocumented in this encounter Care Teams Embroidery Operator Relationship Specialty Start Date End Date Kenny Salazar MD [address] [place] [address]. [address] [place] [phone] PCP - General Neurology 07/26/20 05/15/24 Daniel Gannon ND [address] [place] [address] [place] [address] PCP - General Naturopathic Medicine 05/16/24 documented as of this encounter
--- OUTSIDE RECORDS SUMMARY | 2024-06-12 19:11 | XMS_ITS | Encounter Summary ---
Author Organization [facility] Address [address] [place] [address] Care Team Providers Care Bodybuilder Name Role Phone Kenny Salazar MD Primary Care Provider [phone]- [phone] Encounter Details Date Type Department Care Team (Late st Contact Info) Description 09/03/2020 9:00 EDT Phlebotomy Only [facility] Laboratory Services - [address] [address] [facility]inery [facility] ([facility]) Social History Tobacco Use Types Packs/Day Years [...] Date of Assessment Author No 05/18/2017 8:10 Jsoe Valero RN documented as of this encounter Mental Status * Because of a physical, mental, or emotional condition, does this person have serious difficulty concentrating, remembering, or making decisions? Answer Entry Date Author Yes 05/18/2017 8:10 Jose Valero RN documented in this encounter Plan of Treatment Upcoming Encounters Date Type Department Care Team (Late st Contact Info) Description 08/24/2024 14:15 EDT Office Visit [facility] Rheumatology & Immunology - [facility] [address] [place], [place] [phone] Chantel Juan MD [address] [place], [place] [phone] documented as of this encounter Procedures Procedure Name Priority Date/Time Associated Diagnosis Comments LAMOTRIGINE Routine 09/03/2020 8:55 EDT Seizure ([facility] documented in this encounter Results * LAMOTRIGINE (09/03/2020 8:55 EDT) Lamotrigine, S 4.6 2.5 - 15.0 mcg/mL 09/04/2020 15:34 EDT [facility] Comment: ADDITIONAL INFORMATION This test was developed and its performance characteristics determined by [facility] in a manner consistent with CLIA requirements. This test has not been cleared or approved by the U.S. Food and Drug Administration. Test Performed by: [facility] [address] [place] [address] Wire Technician: Ubaldo Gordon M.D. Ph.D.; CLIA# [id number] Blood VENOUS BLOOD / Unknown Venipuncture / Unknown 09/03/2020 8:55 EDT 09/03/2020 8:55 EDT Kenny Salazar MD CHEMISTRY & BLOOD GAS RHYS KING Final Result Performing Organization Address City/State/[facility] Co de Phone Number [facility] [address] [place] [address] documented in this encounter Visit Diagnoses Diagnosis Seizure ([facility]) Other convulsions documented in this encounter Care Teams Bodybuilder Relationship Specialty Start Date End Date Kenny Salazar MD [address] [place] [address]. [address] [place] [address] PCP - General Neurology 07/26/20 05/15/24 documented as of this encounter
--- OUTSIDE RECORDS SUMMARY | 2024-06-12 19:11 | XMS_ITS | Encounter Summary ---
Author Organization [facility] Address [address] [place] [address] Care Team Providers Care Psychiatric Mental Health Nurse Name Role Phone Kenny Salazar MD Primary Care Provider +1- [phone] Reason for Visit * Reason Onset Date Comments Appointment Related 09/04/2020 Encounter Details Date Type Department Care Team (Late st Contact Info) Description 09/04/2020 Telephone [facility] Cardiology - [address] [place], [place] [phone] Kris Crawford MD Appointment Related Social History Tobacco Use Types [...] Assessment Author No 11/26/2016 7:43 EDT Jose Merdano RN * Because of a physical, mental, [...] encounter Miscellaneous Notes * Telephone Encounter - Paula Thomson - 09/04/2020 0788 EDT Follow up phone call from call received during downtime. LMOM to let patient & know that Dr Crawford is now at [facility] [phone]. If patient is interested in staying with [facility] Cardiology then schedule NPV with Dr Craig per patient request and MAGGI Blakely approved documented in this encounter Plan of Treatment Upcoming Encounters Date Type Department Care Team (Late st Contact Info) Description 08/24/2024 14:15 EDT Office Visit [facility] Rheumatology & Immunology - [address] [address] Chantel Juan MD [address] [place] [address] documented as of this encounter Visit Diagnoses Not on filedocumented in this encounter Care Teams Psychiatric Mental Health Nurse Relationship Specialty Start Date End Date Kenny Salazar MD [address] [facility]. [address] [place] [phone] PCP - General Neurology 07/26/20 05/15/24 documented as of this encounter
--- OUTSIDE RECORDS SUMMARY | 2024-06-12 19:11 | XMS_ITS | Encounter Summary ---
Author Organization [facility] Address [address] [place] [address] Care Team Providers Care Outboard Motor Inspector Name Role Phone Kenny Salazar MD Primary Care Provider Daniel Gannon ND Primary Care Provider [phone] Encounter Details Date Type Department Care Team (Late st Contact Info) Description 07/01/2023 Lab Requisition [facility] Pathology & Laboratory Medicine - [facility] [address] [place] [address] Moira Verma MD [address] [place] [phone] Neoplasm of uncertain behavior of skin Social History Tobacco Use Types Packs/Day Years [...] 08/24/2024 14:15 EDT Office Visit [facility] Rheumatology & Immunology - [facility] [address] [place] [address] Chantel Juan MD [address] [place], [place] [address] documented as of this encounter Procedures Procedure Name Priority Date/Time Associated Diagnosis Comments SURGICAL PATHOLOGY Today 06/29/2023 14 :52 EST Neoplasm of uncertain behavior of skin documented in this encounter Results * SURGICAL PATHOLOGY (06/29/2023 14:52 EST) Note to Patient The following pathology results have been interpreted by your pathologist and may be available to you before your health provider has had the opportunity to review them. Please allow time for your provider to receive these results and explore management options, if applicable. 07/02/2023 15:40 [facility] Final Diagnosis A. SKIN OF NECK, LEFT SUPERIOR POSTERIOR, SHAVE BIOPSY: - Melanocytic nevus, compound type, with unusual architectural features and moderate cytologic atypia. - Nevus present at peripheral and deep tissue edges. 07/02/2023 15:40 [facility] Attestation By the signature below, the attending physician certifies that they have 1) personally conducted a gross and/or microscopic examination of the described specimen(s), and/or personally interpreted the results of laboratory testing of the described specimen(s), and 2) personally rendered or confirmed the above diagnosis. 07/02/2023 15:40 [facility] at 1540 Microscopic Description The epidermis is hyperplastic with elongate and anastomosing rete ridges. There is a compound proliferation of melanocytes with both epidermal and dermal components. The junctional melanocytes are arranged in nests and as individual cells. The nests predominate but vary to moderate degree in size, shape, and spacing. The nests are located between and the sides of rete ridges, in addition to at the tips of the ridges. Nests bridge rete ridges. Focally, individual melanocytes are prominent and unevenly spaced but show no confluent growth or well-developed upward migration. The melanocytes are enlarged and have ill-defined cytoplasm containing melanin pigment. The nuclei show a moderate degree of size and shape variation with occasional large, irregular forms. The dermal component consists of nests and cords of similar melanocytes that show maintenance leader maturation with descent. There is a moderately dense lymphomononuclear infiltrate with eosinophils. 07/02/2023 15:40 [facility] Clinical History Irregular brown papule; Ddx: Neoplasm of uncertain behavior vs dysplastic nevus vs atypical pigmented lesion; clinical diagnosis code: D48.5 07/02/2023 15:40 [facility] Gross Description A. Received in formalin labelled with proper patient identification (initials F, J) and left superior posterior neck is a shave biopsy of irregular variegated bernal-brown hair-bearing skin (0.4 x 0.4 by less than 0.1 cm). The margin is inked blue, the specimen is bisected and entirely submitted in A1. Dominique Singh 07/02/2023 7:58 07/02/2023 15:40 EST [facility] Performing Lab [facility] 07/02/2023 15:40 EST [facility] Scanned Images 07/02/2023 15:40 EST [facility] Tissue SPECIMEN FROM SKIN / Unknown 06/29/2023 14:52 EST 07/01/2023 17:56 EST us Moira Verma MD PATHOLOGY ORDERABLES Final Re sult [facility] [address] [place] [address] documented in this encounter Visit Diagnoses Diagnosis Neoplasm of uncertain behavior of skin documented in this encounter Care Teams Outboard Motor Inspector Relationship Specialty Start Date End Date Kenny Salazar MD [address] [facility]. [address] [place] [address] PCP - General Neurology 07/26/20 05/15/24 Daniel Gannon ND [address] [place] [address] [place] [address] PCP - General Naturopathic Medicine 05/16/24 documented as of this encounter
--- OUTSIDE RECORDS SUMMARY | 2024-06-12 19:12 | XMS_ITS | Encounter Summary ---
Author Organization [facility] Address [address] [place] [address] Care Team Providers Care Clinical Trials Nurse Name Role Phone Daniel Gannon ND Primary Care Provider +1 [phone] Encounter Details Date Type Department Care Team (Latest Contact Info) Description 01/25/2017 13:47 EDT - 01/25/2017 23:59 EDT Hospital Encounter [facility] Neurophysiology - [facility] ([address] [address]) [address] [place], [place] [phone] Kim Grimaldo MD [place] Location [address] [place] [address] Discharge Disposition: Home or Self Care Social History Tobacco Use Types Packs/Day Years Used Date Smoking Tobacco: Former Cigarettes Q uit: 03/03/2003 Smokeless Tobacco: Never Alcohol Use Standard Drinks/Week Comments No 0 (1 standard drink = 0.6 oz pur e alcohol) Sex and Gender Information Value Date Recorded [...] shopping? Answer Date of Assessment Author No 12/22/2016 8:07 Jose Benson RN documented as of this encounter Mental Status * Because of a physical, mental, or emotional condition, does this person have serious difficulty concentrating, remembering, or making decisions? Answer Entry Date Author Yes 12/22/2016 8:07 Jose Benson RN documented in this encounter Medications at Time of Discharge zonisamide (ZONEGRAN) 100 mg capsule Take 1 Cap by mouth daily. 60 Cap 1 11/27/2016 06/04/2020 documented as of this encounter Discharge Disposition Disposition Code Departure Means Destination Home or Self Intermediate documented in this encounter Plan of Treatment Upcoming Encounters Date Type Department Care Team (Late st Contact Info) Description 08/24/2024 14:15 EDT Office Visit [facility] Rheumatology & Immunology - [facility] [address] [place], [place] [phone] Chantel Juan MD [address] [place], [place] [phone] documented as of this encounter Procedures Procedure Name Priority Date/Time Associated Diagnosis Comments EEG - SCANNED 01/27/2017 8:53 EDT EEG - SCANNED 01/27/2017 8:52 EDT EEG - SCANNED 01/27/2017 8:51 EDT EEG - SCANNED 01/27/2017 8:50 EDT documented in this encounter Results * EEG - SCANNED (01/27/2017 8:53 EDT) 01/27/2017 8:53 EDT us Scan 2 Fruit And Vegetable Inspector PROCEDURE/MINOR SURGICAL OR DERABLES Final Result * EEG - SCANNED (01/27/2017 8:52 EDT) 01/27/2017 8:52 EDT us Scan 2 Fruit And Vegetable Inspector PROCEDURE/MINOR SURGICAL OR DERABLES Final Result * EEG - SCANNED (01/27/2017 8:51 EDT) 01/27/2017 8:51 EDT us Scan 2 Fruit And Vegetable Inspector PROCEDURE/MINOR SURGICAL OR DERABLES Final Result * EEG - SCANNED (01/27/2017 8:50 EDT) 01/27/2017 8:50 EDT us Scan 2 Fruit And Vegetable Inspector PROCEDURE/MINOR SURGICAL OR DERABLES Final Result documented in this encounter Visit Diagnoses Not on filedocumented in this encounter Care Teams Clinical Trials Nurse Relationship Specialty Start Date End Date Daniel Gannon ND [address] [place] [address] [place] [address] PCP - General 12/16/16 07/25/20 documented as of this encounter
--- OUTSIDE RECORDS SUMMARY | 2024-06-12 19:12 | XMS_ITS | Encounter Summary ---
Author Organization [facility] Address [address] [place] [address] Care Team Providers Care Shirt Turner Name Role Phone Kenny Salazar MD Primary Care Provider + [phone] Daniel Gannon ND Primary Care Provider [phone] Encounter Details Date Type Department Care Team (Late st Contact Info) Description 07/26/2020 Lab Requisition [facility] Pathology & Laboratory Medicine - [facility] [address] [place] [address] Daniel Gannon ND [address] [employer] [employer] [place], [place] [address] Epilepsy, unspecified, not intractable, without status epilepticus (HCC-CMS); Weakness Social History Tobacco Use Types Packs/Day Years [...] have Coronavirus / COVID-19? No / Unsure 07/26/2020 7:30 EST documented as of this encounter Functional [...] Info) Description 08/24/2024 14:15 EDT Office Visit [facility] Rheumatology & Immunology - [facility] [address] [place], [place] [id number] Chantel Juan MD [address] [place] [address] documented as of this encounter Procedures Procedure Name Priority Date/Time Associated Diagnosis Comments GLUCOSE TOLERANCE, 2HR Today 07/26/2020 9:49 EST Epilepsy, unspecified, not intractable, without status epilepticus (HCC-CMS) [ICD-10-CM] Weakness [ICD-10-CM] GLUCOSE TOLERANCE, 2HR Today 07/26/2020 7:48 EST Epilepsy, unspecified, not intractable, without status epilepticus (HCC-CMS) [ICD-10-CM] Weakness [ICD-10-CM] GLUCOSE TOLERANCE, FASTING Today 07/26/2020 7:48 EST Epilepsy, unspecified, not intractable, without status epilepticus (HCC-CMS) [ICD-10-CM] Weakness [ICD-10-CM] documented in this encounter Results * GLUCOSE TOLERANCE, 2HR (07/26/2020 9:49 EST) Glucose Alejandro, 2hr 72 50 - 140 mg/dL 07/26/2020 11:30 EST [facility] Blood VENOUS BLOOD / Unknown Venipuncture / Unknown 07/26/2020 9:49 EST 07/26/2020 9:53 EST Daniel Gannon ND CHEMISTRY & BLOOD GAS ORDER TERE Final Result Performing Organization Address City/[facility]/ZIP Co de Phone Number [facility] [address] [place] [address] * (ABNORMAL) GLUCOSE TOLERANCE, FASTING (07/26/2020 7:48 EST) Glucose Tolerance, Fasting 105(H) 50 - 100 mg/dL 07/26/2020 11:34 EST [facility] Glucose Dose 75 grams 07/26/2020 11:34 EST [facility] Blood VENOUS BLOOD / Unknown Venipuncture / Unknown 07/26/2020 7:48 EST 07/26/2020 7:50 EST Daniel Gannon ND CHEMISTRY & BLOOD GAS ORDER TERE Final Result Performing Organization Address City/[facility]/ZIP Co de Phone Number [facility] [address] [place] [address] documented in this encounter Visit Diagnoses Diagnosis Epilepsy, unspecified, not intractable, without status epilepticus ([facility]-CMS) Weakness Other malaise and fatigue documented in this encounter Care Teams Shirt Turner Relationship Specialty Start Date End Date Kenny Salazar MD [address] [facility]. [address] [place] [address] PCP - General Neurology 07/26/20 05/15/24 Daniel Gannon ND [address] [place] [address] [place] [address] PCP - General Naturopathic Medicine 05/16/24 documented as of this encounter
--- OUTSIDE RECORDS SUMMARY | 2024-06-12 19:12 | XMS_ITS | Encounter Summary ---
Author Organization [facility] Address [address] [place] [address] Care Team Providers Care Grapple Operator Name Role Phone Daniel Gannon ND Primary Care Provider [phone] Kenny Salazar MD Primary Care Provider + [phone] Daniel Gannon ND Primary Care Provider [phone] Encounter Details Date Type Department Care Team (Late st Contact Info) Description 03/27/2020 Lab Requisition [facility] Pathology & Laboratory Medicine - [facility] [address] [place] [address] Daniel Gannon ND [address] [place], [place] [address] Iron deficiency anemia, unspecified; Nutritional deficiency, unspecified; Abnormal weight loss; Other fatigue Social History Tobacco Use Types Packs/Day Years [...] Description 08/24/2024 14:15 EDT Office Visit [facility] Rheumatology & Immunology [facility] [address] [place], [place] [address] Chantel Juan MD [address] [place] [address] documented as of this encounter Procedures Procedure Name Priority Date/Time Associated Diagnosis Comments COMPLETE BLOOD COUNT Today 03/27/2020 8:45 EDT Iron deficiency anemia, unspecified Nutritional deficiency, unspecified Abnormal weight loss Other fatigue IRON Today 03/27/2020 8:45 EDT Iron deficiency anemia, unspecified Nutritional deficiency, unspecified Abnormal weight loss Other fatigue HEMOGLOBIN A1C Today 03/27/2020 8:45 EDT Iron deficiency anemia, unspecified Nutritional deficiency, unspecified Abnormal weight loss Other fatigue FERRITIN Today 03/27/2020 8:45 EDT Iron deficiency anemia, unspecified Nutritional deficiency, unspecified Abnormal weight loss Other fatigue COMPREHENSIVE METABOLIC PANEL (CMP) Today 03/27/2020 8:45 EDT Iron deficiency anemia, unspecified Nutritional deficiency, unspecified Abnormal weight loss Other fatigue documented in this encounter Results * (ABNORMAL) COMPREHENSIVE METABOLIC PANEL (CMP) (03/27/2020 8:45 EDT) Sodium 141 136 - 145 mEq/L 03/27/2020 13:13 [facility] Potassium 4.7 3.5 - 5.0 mEq/L 03/27/2020 13:13 [facility] Chloride 102 96 - 110 mEq/L 03/27/2020 13:13 [facility] CO2 Total 31 22 - 32 mEq/L 03/27/2020 13:13 [facility] Glucose 119(H) 70 - 100 mg/dL 03/27/2020 13:13 [facility] BUN 20 10 - 26 mg/dL 03/27/2020 13:13 [facility] Creatinine 0.80 0.66 - 1.25 mg/dL 03/27/2020 13:13 [facility] eGFR 112 >60 mL/min/1.7 3m2 03/27/2020 13:13 [facility] Comment:eGFR calculated usin g CKD-EPI equation for non- Americans. Multiply eGFR by 1.16 for patients. Total Protein 6.6 6.3 - 8.2 g/dL 03/27/2020 13:13 [facility] Albumin 3.9 3.4 - 4.9 g/dL 03/27/2020 13:13 [facility] Alkaline Phosphatase 53 38 - 126 U/L 03/27/2020 13:13 [facility] AST 67(H) 15 - 46 U/L 03/27/2020 13:13 [facility] ALT 70(H) <50 U/L 03/27/2020 13:13 [facility] Bilirubin, Total 0.8 <1.4 mg/dL 03/27/20 20 13:13 [facility] Calcium 9.1 8.5 - 10.5 mg/dL 03/27/2020 13:13 [facility] Calculated Calcium 9.2 8.5 - 10.5 mg/dL 03/27/2020 13:13 [facility] Blood VENOUS BLOOD / Unknown Non-Lab Collect / Unknown 03/27/2020 8:45 EDT 03/27/2020 12:51 EDT Daniel Gannon ND CHEMISTRY & BLOOD GAS ORDER TERE Final Result [facility] [address] [place] [address] * (ABNORMAL) HEMOGLOBIN A1C (03/27/2020 8:45 EDT) Hemoglobin A1c 5.8(H) <5.7 % 03/27/2020 15:17 EDT [facility] Comment: Glycemic Status References: Normal: ??<5.7% Pre-Diabetes: ??5.7% - 6.4% Diagnostic of Diabetes: ??> or = 6.5% (if confirmed) Goals for glycemic control in diabetics (ADA 2017): <7.0% target for non adults with diabetes. <7.5% target for children and adolescents with Type I Diabetes. More or less stringent targets may be appropriate for individual patients. Est Avg Glucose 120 mg/dL 10/14/202 0 15:17 [facility] Comment:The eAG represents t he A1c result expressed as average glucose in mg/dL. Blood VENOUS BLOOD / Unknown Non-Lab Collect / Unknown 03/27/2020 8:45 EDT 03/27/2020 12:51 EDT us Daniel Gannon ND CHEMISTRY & BLOOD GAS ORDER TERE Final Result [facility] [address] [place] [address] * (ABNORMAL) COMPLETE BLOOD COUNT (03/27/2020 8:45 EDT) WBC 3.68(L) 4.00 - 10.40 K/cmm 03/27/2020 13:18 [facility] RBC 4.71 4.36 - 5.78 M/cmm 03/27/2020 13:18 [facility] Hemoglobin 14.4 13.8 - 17.3 gm/dL 03/27/2020 13:18 [facility] HCT 41.7 39.5 - 50.2 % 03/27/2020 13:18 [facility] MCV 89 81 - 95 fl 03/27/2020 13:18 [facility] MCH 30.6 27.6 - 33.0 pg 03/27/2020 13:18 [facility] MCHC 34.5 32.8 - 36.4 gm/dL 03/27/2020 13:18 [facility] RDW-CV 12.2 <14.2 % 03/27/2020 13:18 [facility] RDW-SD 39.8 <46.0 fl 03/27/2020 13:18 [facility] PLT 171 141 - 377 K/cmm 03/27/2020 13:18 [facility] MPV 10.3 9.5 - 12.7 fl 03/27/2020 13:18 [facility] Blood VENOUS BLOOD / Unknown Non-Lab Collect / Unknown 03/27/2020 8:45 EDT 03/27/2020 12:51 EDT Daniel Gannon ND HEMATOLOGY & PF4 ORDERABLES Final Result Performing Organization Address City/[facility]/ZIP Co de Phone Number [facility] [address] [place] [address] * FERRITIN (03/27/2020 8:45 EDT) Ferritin 84 22 - 322 ng/mL 03/27/2020 14:07 EDT [facility] Blood VENOUS BLOOD / Unknown Non-Lab Collect / Unknown 03/27/2020 8:45 EDT 03/27/2020 12:51 EDT us Daniel Gannon ND CHEMISTRY & BLOOD GAS ORDER TERE Final Result Performing Organization Address [facility] [[email or web address]] Co de Phone Number [facility] [address] [place] [address] * IRON (03/27/2020 8:45 EDT) Iron 130 49 - 181 ug/dL 03/27/2020 13:13 EDT [facility] Blood VENOUS BLOOD / Unknown Non-Lab Collect / Unknown 03/27/2020 8:45 EDT 03/27/2020 12:51 EDT Daniel Gannon ND CHEMISTRY & BLOOD GAS ORDER TERE Final Result Performing Organization Address City/[facility] [[email or web address]] Co de Phone Number [facility] [address] [place] [address] documented in this encounter Visit Diagnoses Diagnosis Iron deficiency anemia, unspecified Nutritional deficiency, unspecified Abnormal weight loss Loss of weight Other fatigue documented in this encounter Care Teams Grapple Operator Relationship Specialty Start Date End Date Daniel Gannon ND [address] [place] [address] [facility] [address] PCP - General 12/16/16 07/25/20 Kenny Salazar MD [address] [place] [address] [address] [place] [address] PCP - General Neurology 07/26/20 05/15/24 Daniel Gannon ND [address] [place] [address] [place] [address] PCP - General Naturopathic Medicine 05/16/24 documented as of this encounter
--- OUTSIDE RECORDS SUMMARY | 2024-06-12 19:12 | XMS_ITS | Encounter Summary ---
Author Organization [facility] Address [address] [place] [address] Care Team Providers Care Director Of Cardiac Rehabilitation Name Role Phone Daniel Gannon ND Primary Care Provider [phone] Reason for Visit * Reason Onset Date Comments Appointment Related 04/08/2020 Encounter Details Date Type Department Care Team (Late st Contact Info) Description 04/08/2020 Telephone [facility] Cardiology - [address] [place] [address] Kris Crawford MD Appointment Related Social History [...] 11/26/2016 7:43 HARSHADT Jose Medrano RN * Are you blind [...] encounter Miscellaneous Notes * Telephone Encounter - Lulu Porter - 04/08/[address] Crawford is currently not seeing patients at [facility], we are reaching out to reschedule your upcoming visit. We would like to reschedule you with another physician at [facility] - ?? Dr Femi Littlejohn ?? if you prefer to keep your care with Dr. Crawford he is seeing patient???s at [facility] and we can send a referral to [facility] to continue your care with Dr. Crawford.?? * Telephone Encounter - Raman Astudillo - 04/08/2020 1223 EDT Patient's is calling to schedule office visit w/Dr. Crawford and linked ECHO for patient by end 2019 if possible. Patient recently had a seizure. Please call back. documented in this encounter Plan of Treatment Upcoming Encounters Date Type Department Care Team (Kajal croft Contact Info) Description 08/24/2024 14:15 EDT Office Visit [facility] Rheumatology & Immunology - [address] [id number] Chantel Juan MD [address] [place], [place] [id number] documented as of this encounter Visit Diagnoses Not on filedocumented in this encounter Care Teams Director Of Cardiac Rehabilitation Relationship Specialty Start Date End Date Daniel Gannon ND [address] [place] [address] [place], [place] [address] PCP - General 12/16/16 07/25/20 documented as of this encounter
--- OUTSIDE RECORDS SUMMARY | 2024-06-12 19:12 | XMS_ITS | Encounter Summary ---
Author Organization [facility] Address [address] [place] [address] Care Team Providers Care Agricultural Service Technician Name Role Phone Daniel Gannon ND Primary Care Provider [phone]- [phone] Reason for Visit * Reason Comments Laceration to left thumb from r mark blade. Tdap 2012. Normal sensation ROM. Actively bleeding, controlled with pressure. Encounter Details Date Type Department Care Team (Latest Contact Info) Description 06/04/2019 16:46 EST - 06/04/2019 18:36 EST Hospital Encounter [facility] - [address] [id number] Brian Villa MD [address] [place] [phone] Laceration of left thumb without foreign body with damage to nail, initial encounter (Primary Dx) Discharge Disposition: Home or Self [...] of Binge Drinking Not on file 05/15 Sex and Gender Information Value Date Recorded Sex Assigned at Not on file Legal Sex Male 18:38 EST Gender Identity Not on file Sexual Orientation Not on file documented as of this encounter Last Filed Vital Signs Vital Sign Reading Time Taken Comments Blood Pressure 143/64 06/04/2019 1615 EST Pulse 64 06/04/2019 1615 EST Temperature 36.8 ??C (98.2 ??F) 06/04/2019 1615 EST Respiratory Rate 18 06/04/2019 1615 EST Oxygen Saturation - - Inhaled Oxygen Concentration - - Weight - - Height - - Body Mass Index - - documented in [...] Jose Valero RN documented in this encounter Discharge Instructions * Discharge Instructions* Brian Villa MD - 06/04/2019 18:27 EST Keep this elevated for the first few days, you can switch over from our bandage to using flexible fabric Band-Aids with a little bit of compression to help keep the swelling out of the end of the finger. Antibiotic ointment on that area However as this heals he will probably want to keep going back to the cut and the side of the nail and keep that covered with methacrylate glue to help keep the nail rigid and keep that margin of thenail moving out normally so that it stays stuck to the nailbed beneath It seen if you have any sign of infection, we are going to give you a few doses of antibiotics to help reduce the possibility of that * Attachments The following attachments cannot be sent through Care Everywhere. * Hand Laceration: Stitches ([place] Citizen) documented in this encounter Medications at Time of Discharge CANNABIDIOL, CBD, EXTRACT ORAL Take by mouth as needed. 05/16/2024 zonisamide (ZONEGRAN) 100 mg capsule Take 1 Cap by mouth daily. 60 Cap 1 11/27/2016 06/04/2020 documented as of this encounter Discharge Disposition Disposition Code Departure Means Destination Home or Self Detention documented in this encounter ED Notes * Brian Villa MD - 06/04/2019 1833 ESTAssociated Order(s): Laceration Post-Procedure Diagnose(s): Laceration of left thumb without foreign body with damage to nail, initial encounter Images from the original note were not included. DOS: 06/04/2019 Chief Complaint Patient presents with ??? Laceration to left thumb from razor blade. Tdap 2013. Normal sensation ROM. Actively bleeding, controlled withpressure. The patient is a 39 y.o. male who presents today with Laceration (to left thumb from razor blade. Tdap 2013. Normal sensation ROM. Actively bleeding, controlled with pressure. 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 Negative for chills and fever. HENT: Negative for sore throat. Respiratory: Negative for shortness of breath. Cardiovascular: Negative for chest pain. Gastrointestinal: Negative for abdominal pain. Skin: Positive for wound. Negative for rash. Psychiatric/Behavioral: Negative for confusion. All other systems reviewed and are negative. Current Facility-Administered Medications Medication Dose Route Frequency Provider Last Rate Last Dose ??? Augmentin 875 mg Tab STARTER PACK 1 Package oral Now Brian Villa MD Current Outpatient Medications Medication Sig Dispense Refill ??? CANNABIDIOL, CBD, EXTRACT ORAL Take by mouth as needed. ??? zonisamide (ZONEGRAN) 100 mg capsule Take 1 Cap by mouth daily. (Patient not taking: Reported on 05/18/2017) 60 Cap 1 No Known Allergies Patient Active Problem List Diagnosis Date Noted ??? Seizure ([facility]) 11/27/2016 ??? Aortic valve regurgitation 09/15/2010 Moderate to severe. Note dated 03/04/10 ??? Mitral valve insufficiency 09/15/2010 Moderate. Note dated 03/04/10 ??? Hypertensive disorder 09/15/2010 ??? Palpitations 09/15/2010 Unclear etiology. Past Medical History: Diagnosis Date ??? Cardiac murmur ??? HTN (hypertension) ??? Vocal cord paralysis, bilateral partial Social History Tobacco Use ??? Smoking status: Former Smoker Last attempt to quit: 03/03/2003 Years since quittin.2 ??? Smokeless tobacco: Never Used Substance Use Topics ??? Alcohol use: Never Frequency: Never ??? Drug use: Yes Types: Marijuana History reviewed. No pertinent family history. BP (!) 143/64 Pulse 64 Temp 98.2 ??F (36.8 ??C) (Tympanic) Resp 18 Physical Exam Constitutional: He is oriented to person, place, and time. He appears well- developed and well-nourished. HENT: Head: Normocephalic and atraumatic. Eyes: Pupils are equal, round, and reactive to light. Neck: Normal range of motion. Cardiovascular: Normal rate and regular rhythm. Pulmonary/Chest: Effort normal. Musculoskeletal: Hands: Neurological: He is alert and oriented to person, place, and time. Skin: Skin is warm and dry. He is not diaphoretic. Psychiatric: He has a normal mood and affect. Nursing note and vitals reviewed. Consult orders: None PCP: Daniel Gannon No results found for this visit on 06/04/19. Radiology orders: None Imaging Results None No orders to display Laceration Date/Time: 06/04/2019 18:35 Performed by: Brian Villa MD Authorized by: Brian Villa MD Consent: Verbal consent obtained. Consent given by: patient Patient identity confirmed: verbally with patient Body area: upper extremity Location details: left thumb Laceration length: 2 cm Foreign bodies: no foreign bodies Tendon involvement: none Nerve involvement: superficial Vascular damage: no (damage to nail bed) Anesthesia: digital block Anesthesia: Local Anesthetic: lidocaine 2% with epinephrine Anesthetic total: 2.5 mL Sedation: Patient sedated: no Preparation: Patient was prepped and draped in the usual sterile fashion. Irrigation solution: saline Irrigation method: syringe Amount of cleaning: extensive Debridement: none Skin closure: 5-0 Prolene, 6-0 Prolene and glue Number of sutures: 9 Technique: complex (Repair of nail defect the nailbed laceration ) Approximation: close Approximation difficulty: complex Dressing: pressure dressing Patient tolerance: Patient tolerated the procedure well with no immediate complications URGENT CARE COURSE A medical screening exam was performed. ASSESSMENT AND PLAN Final diagnoses: Laceration of left thumb without foreign body with damage to nail, initial encounter Slightly complex cut wrapping around the thumb through the nailbed, Short course antibiotics, Prolene stitches removed at 8 days DISPOSITION: Discharged The patient's pain was managed to an adequate level weighing risk vs. benefit of further medications. Upon departure from [facility], the patient's pain was 2 on a zero to ten scale. Any further pain treatment will be at the discretion of the provider following up with the patient based on their clinical assessment . Condition at departure from the [facility] : Good [facility] 06/04/2019 18:33 * Nicolasa Amador MA - 06/04/2019 1741 EST Wound irrigated with normal saline, Pt tolerated irrigation well, ready for provider. * Sam Verdugo RN - 06/04/2019 1703 EST See triage note. documented in this encounter Plan of Treatment Upcoming Encounters Date Type Department Care Team (Late st Contact Info) Description 08/24/2024 14:15 EDT Office Visit [facility] - [facility] [address], [place] [address] Chantel Juan MD [address] [place], [place] [phone] documented as of this encounter Procedures Procedure Name Priority Date/Time Associated Diagnosis Comments LACERATION REPAIR Routine 06/04/2019 18: 33 EST Laceration of left thumb without foreign body with damage to nail, initial encounter LACERATION REPAIR Routine 06/04/2019 18: 33 EST Laceration of left thumb without foreign body with damage to nail, initial encounter documented in this encounter Results * ID REPAIR INTERMEDIATE N/H/F/XTRNL GENT 2.5CM/<, HC - BEDSIDE CODING WORKFLOW 2 (06/04/2019 18:33 EST) Narrative [facility] EKG - 06/04/2019 18:33 EST Brian Villa MD ? 06/04/2019 18:39 Laceration Date/Time: 06/04/2019 18:35 Performed by: Brian Villa MD Authorized by: Brian Villa MD Consent: Verbal consent obtained. Consent given by: patient Patient identity confirmed: verbally with patient Body area: upper extremity Location details: left thumb Laceration length: 2 cm Foreign bodies: no foreign bodies Tendon involvement: none Nerve involvement: superficial Vascular damage: no (damage to nail bed) Anesthesia: digital block Anesthesia: Local Anesthetic: lidocaine 2% with epinephrine Anesthetic total: 2.5 mL Sedation: Patient sedated: no Preparation: Patient was prepped and draped in the usual sterile fashion. Irrigation solution: saline Irrigation method: syringe Amount of cleaning: extensive Debridement: none Skin closure: 5-0 Prolene, 6-0 Prolene and glue Number of sutures: 9 Technique: complex (Repair of nail defect the nailbed laceration ) Approximation: close Approximation difficulty: complex Dressing: pressure dressing Patient tolerance: Patient tolerated the procedure well with no immediate complications us Biran Villa MD PROCEDURE/MINOR SURGIC AL ORDERABLES Final Result [facility] EKG documented in this encounter Visit Diagnoses Diagnosis Laceration of left thumb without foreign body with damage to nail, initial encounter- Primary documented in this encounter Administered Medications Inactive Administered Medications - up to 3 most recent administrations Medication Order MAR Action Action Date Dose Rate Site Augmentin 875 mg Tab STARTER PACK 1 Package, oral, NOW X1, 1 dose, On 06/04/19 at 1830, Routine Given 06/04/2019 18:35 EST 1 Package documented in this encounter Active and Recently Administered Medications Times are shown in EST. Scheduled Medication Order 06/02/2019 06/03/2019 06/04/2019 Augmentin 875 mg Tab STARTER PACK (COMPLETED) 1 Package, oral, NOW X1, 1 dose, On 06/04/19 at 1830, Routine 1835 (Given - Provid er: Sam Verdugo RN) documented in this encounter Orders Medications Ordered That Marin ht Not Have Been Administered Count Last Ordered Date First Ordered Date Augmentin 875 mg Tab STARTER PACK 1 019 documented in this encounter Care Teams Agricultural Service Technician Relationship Specialty Start Date End Date Daniel Gannon ND [address] [place] [address] [place] [address] PCP - General 12/16/16 07/25/20 documented as of this encounter
--- OUTSIDE RECORDS SUMMARY | 2024-06-12 19:12 | XMS_ITS | Encounter Summary ---
Author Organization [facility] Address [address] [place] [address] Care Team Providers Care Utility Mechanic Supervisor Name Role Phone Daniel Gannon DARSHANA Primary Care Provider [phone] Kenny Salazar MD Primary Care Provider [phone]- [phone] Reason for Visit * Reason Onset Date Comments Seizures 07/25/2020 Encounter Details Date Type Department Care Team (Late st Contact Info) Description 07/25/2020 Telephone [facility] Neurophysiology - [facility] [address]) [address] [place] [address] Kenny Salazar MD [address] [facility]. [address] [place] [phone] Seizures Social History Tobacco Use Types Packs/Day Years [...] encounter Miscellaneous Notes * Telephone Encounter - Sam Nolen - 07/26/2020 1417 EST Feliciano perez for 08/20 @ 9 [facility] [email or web address] Meeting ID: [phone] Password: [id number] [place]: [phone] * Telephone Encounter - Kenny Salazar MD - 07/26/2020 1059 EST Thanks for the update. Please increase TOTH from 200 daily to 250 mg/d and in two weeks to 300 mg/d.Review concern of rash in small but significant number of persons. Call if this happens urgently. Schedulers: Please set him up with f/u in AUG 2020. * Telephone Encounter - Shaneka Zavala RN - 07/26/2020 1015 EST Reason for contact: Seizure 07/24/2020 Pt last seen 06/04/2020. Lamotrigine was increased after visit with pt reaching target dose of Lamotrigine on 07/17/2020 Per , pt had seizure out of sleep on 07/24/2020. Seizure started at 550 am. She was awakened by hearing heavy breathing. She said his body then stiffened and shook. Seizure lasated about 1 min then pt had heavy breathing for 10-15 min then went to sleep. He got up around 730 am with muscle soreness. Pt was exhausted all day on 07/24/2020 Current AED: Lamotrigine 200 mg in am 07/26/2020: toth level drawn at 0748 am and is in process Per , pt uses pill box and denies missed doses. Pt had not been ill but did feel nauseous and sweaty a few hours prior to the seizure. Noticed that when he got up to use the bathroom. states pt may have been a bit sleep deprived. She states both she and pt have had a bit of difficulty sleeping for a few nights prior to seizure. Pt has not had any alcohol in 3 years states pt has had seizures 03/23/2020, 05/23/2020 and now 07/24/2020 all out of sleep. Pt is driving and states Dr Salazar is aware. She said Dr Salazar had urged pt to report to [facility] but pt has not done that. All of his seizures have been out of sleep. I did review that pt could injure or kill himself or someone else if he had an awake seizure while driving and urged him to limit driving. Pt denies any rash or side effect from current dose of Lamotrigine Pt due to rtc August 2020 but no appt scheduled yet seemed to think Dr Salazar may want EEG and in person visit in August. Will forward to Dr Salazar * Telephone Encounter - Kenny Salazar MD - 07/25/2020 1464 EST Images from the original note were not included. Shaneka - I received a note somewhere in [facility] regarding Feliciano, that he is on TOTH 200 mg/d (not sure for how long) and that he had a seizure today. Prior attacks associated with ETOH and it would be good to know if any provoking factors this time He reported trouble reaching out to us so can you call? From Dr. Gannon: Daniel Gannon, Kenny Vargas MD ?? Dr. Salazar, I saw Feliciano Moore today via telemedicine. He experienced another seizure the morning of July 24, at 6a. His describes a bilateral, tonic-clonic seizure lasting 3 to 5 minutes, with deep breathing, and prominent postictal symptoms. He awoke feeling tired, sore, but otherwise well and andrews clear, adequate mental capacity. He has been on Lamictal 200mg since last Wednesday, working his way up to that dose as planned. I advised him to continue this dosage until he hears from you on whether an increase is indicated. I'll be ordering labs today and am happy to add on a Lamotrigine Level if that will be useful for you. Additionally, will add basic screening labs. [facility] will [facility]. His Shreya reports that she has tried to use the portal to schedule with your office, but has not had success. Call/text with any questions or if you do not need the Lamotrigine level. Otherwise will encourage Henri to get on your schedule for f/u as soon as practicable. Haider documented in this encounter Plan of Treatment Upcoming Encounters Date Type Department Care Team (Late st Contact Info) Description 08/24/2024 14:15 EDT Office Visit [facility] Rheumatology & Immunology - [facility] [address], [place] [phone] Chantel Juan MD [address] [place] [id number] documented as of this encounter Visit Diagnoses Not on filedocumented in this encounter Care Teams Utility Mechanic Supervisor Relationship Specialty Start Date End Date Daniel Gannon ND [address] [place] [address] [place] [address] PCP - General 12/16/16 07/25/20 Kenny Salazar MD [address] [place] [address]. [address] [place] [phone] PCP - General Neurology 07/26/20 05/15/24 documented as of this encounter
--- OUTSIDE RECORDS SUMMARY | 2024-06-12 19:12 | XMS_ITS | Encounter Summary ---
Author Organization [facility] Address [address] [place] [address] Care Team Providers Care Loan Originator Name Role Phone Daniel Gannon DARSHANA Primary Care Provider [phone]- [phone] Reason for Referral * Cardiology (Routine) - Receiving Office to Obtain Authorization Specialty Diagnoses / Procedures Referred By See hickman Referred To Contact Cardiology Diagnoses Nonrheumatic aortic valve insufficiency Procedures CONGENITAL ECHOCARDIOGRAM Kris Crawford MD [facility] - [place] [address] [place] [address] Phone: tel: fax: Referral ID Status Reason Start Date Expiration Date Visits Requested Visits Authorized [id number] Receiving Office to Obtain Authorization 9 1 1 Reason for Visit * Reason Comments Heart Problem Fur Encounter Details Date Type Department Care Team (Latest Contact Info) Description 04/04/2019 8:00 EDT Office Visit [facility] Cardiology - [place] [address] [place] [address] Kris Crawford MD Nonrheumatic aortic valve insufficiency (Primary Dx) Social History Tobacco Use Types Packs/Day Years Used Date Smoking Tobacco: Former Cigarettes Q uit: 03/03/2003 Smokeless Tobacco: Never Alcohol Use Standard Drinks/Week Comments Yes 2 (1 standard drink = 0.6 oz pur e alcohol) Sex and Gender Information Value Date Recorded Sex Assigned at Not on file Legal Sex Male 18:38 EST Gender Identity Not on file Sexual Orientation Not on file documented as of this encounter Last Filed Vital Signs Vital Sign Reading Time Taken Comments Blood Pressure 130/68 04/04/2019810 EDT Pulse 51 04/04/2019810 EDT Temperature - - Respiratory Rate - - Oxygen Saturation 100% 04/04/2019810 EDT Inhaled Oxygen Concentration - - Weight 80.7 kg (178 lb) 04/04/2019810 EDT Height 198.1 cm (6' 5.99) 04/04/2019810 EDT Body Mass Index 20.57 04/04/2019810 EDT documented in this encounter Functional Status * [...] Jose Valero RN documented in this encounter Progress Notes * Kris Crawford MD, MD - 04/04/2019 0800 EDT This office note has been dictated. * Kris Crawford MD, MD - 04/04/2019 0000 EDT [facility] CARDIOLOGY PROGRESS / FOLLOWUP NOTE - 04/04/2019 Daniel Teressa [facility] [address], [address] [place] [address] Problem List: 1. 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 2. Mild mitral regurgitation. 3. No aortopathy. Dear Daniel: I understand that you have taken over the primary care of Feliciano. 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 I have been following him for approximately a decade and have noted very mild, if any, progression over that period of time. He did have a second opinion back in 2014 by my colleague, Dr Jorge Rodriguez at the [facility] in [place], [place], who recommended continued monitoring. 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 He really has no complaints. Diagnostic Imaging: I personally reviewed his echocardiogram, which again shows just mild LV cavitydilation with a diastolic dimension of 5.8 cm, systolic dimension of 3.6 cm, ejection fraction of 65%. The valve is trileaflet with some thickening of the raphe, particularly with a central jet of severe aortic insufficiency. No other significant abnormalities. Review of Systems: No chest pain, PND, orthopnea, presyncope or syncope. Current Medications: None. No regular medications. On physical exam, he is a pleasant, healthy tall, thin, white male with a blood pressure 130/68, heart rate of 51, 178 pounds, BMI is 21. Skin is warm and dry. Neurologic: Grossly nonfocal. Musculoskeletal: Gait is steady. Psychiatric: Oriented x3. Respiratory: Lungs are clear. Cardiovascular: Normal S1, normal S2. There is a faint 1/6 ejection murmur. There is a moderate intensity 2/6 decrescendo diastolic murmur heard at the left sternal border, radiating widely. No carotid bruits, no jugularvenous distention. Distal pulses are intact. Gastrointestinal: Soft, nontender. Lower extremities show no edema. In summary, Henri continues to do well with severe asymptomatic aortic insufficiency, very mild LV dilation with no change compared with prior studies. He has no exercise restrictions. I plan on seeing him again and he prefers to stretch it to just a bit over a year, so that will be June 2020, along with a repeat echocardiogram. He tells me that stretching it out to the next year saves him quite a bit of co-pay money. He knows to call if any untoward symptoms occur. Daniel, do not hesitate to call me if you have any questions regarding this. Sincerely, Kris Crawford MD 08 34 AM - Kris Crawford MD ln Dictation ID: [id number] cc: Daniel Gannon ND, [address], [facility] [address] [place] [address] documented in this encounter Plan of Treatment Upcoming Encounters Date Type Department Care Team (Late st Contact Info) Description 08/24/2024 14:15 EDT Office Visit [facility] Rheumatology & Immunology - [address] [address] Chantel Juan MD [address] [place], [place] [phone] Scheduled Orders Name Type Priority Associated Diagnoses Orde r Schedule CONGENITAL ECHOCARDIOGRAM Echocardiography Routine Nonrheumatic aortic valve insufficiency Ordered: 04/04/2019 documented as of this encounter Visit Diagnoses Diagnosis Nonrheumatic aortic valve insufficiency- Primary Aortic valve disorders documented in this encounter Historical Medications * This list may reflect changes made after this encounter. CANNABIDIOL, CBD, EXTRACT ORAL Take by mouth as needed. 05/16/2024 added in this encounter Care Teams Loan Originator Relationship Specialty Start Date End Date Daniel Gannon ND [address] [place] [address] [place] [address] PCP - General 12/16/16 07/25/20 documented as of this encounter
--- OUTSIDE RECORDS SUMMARY | 2024-06-12 19:12 | XMS_ITS | Encounter Summary ---
Author Organization [facility] Address [address] [place] [address] Care Team Providers Care Novelty Maker Name Role Phone Kenny Salazar MD Primary Care Provider [phone] Reason for Referral * Radiology Services (Routine) - Closed Specialty Diagnoses / Procedures Referred By See hickman Referred To Contact Diagnoses Elevated liver enzymes Procedures US ABDOMEN LIMITED Daniel Gannon ND Phone: tel: fax: Referral ID Status Reason Start Date Expiration Date Visits Re quested Visits Authorized [id number] Closed 08/01/2020 1 1 Reason for Visit * Radiology Services (Routine) - Closed Specialty Diagnoses / Procedures Referred By See hickman Referred To Contact Diagnoses Elevated liver enzymes Procedures US ABDOMEN LIMITED Daniel Gannon ND Phone: tel: fax: Referral ID Status Reason Start Date Expiration Date Visits Re quested Visits Authorized [id number] Closed 08/01/2020 1 1 Encounter Details Date Type Department Care Team (Latest Contact Info) Description 08/15/2020 8:07 EST - 08/15/2020 23:59 EST Hospital Encounter [facility] [address] [place] [address] Elevated liver enzymes Discharge Disposition: Home or Self Care Social [...] Answer Entry Date Author Yes 05/18/2017 8:10 EST Medrano, Jose a, RN documented in this encounter Medications at Time of Discharge CANNABIDIOL, CBD, EXTRACT ORAL Take by mouth as needed. 05/16/2024 lamoTRIgine (LAMICTAL) 100 mg tablet As directed up to 200 mg daily 60 Tab 2 06/04/2020 09/05/2020 documented as of this encounter Discharge Disposition Disposition Code Departure Means Destination Home or Self Care documented in this encounter Plan of Treatment Upcoming Encounters Date Type Department Care Team (Late st Contact Info) Description 08/24/2024 14:15 EDT Office Visit [facility] Rheumatology & Immunology [address] [address] Chantel Juan MD [address] [place] [address] documented as of this encounter Procedures Procedure Name Priority Date/Time Associated Diagnosis Comments US ABDOMEN LIMITED Routine 08/15/2020 8:24 EST Elevated liver enzymes documented in this encounter Results * US ABDOMEN LIMITED (08/15/2020 8:24 EST) Anatomical Region Laterality Modality Abdomen, Body Ultrasound 08/15/2020 10:1 1 EST Impressions 08/15/2020 10:11 EST 1. 0.4 cm gallbladder polyp and biliary sludge, no follow-up imaging is recommended per ACR guidelines. 2. Mild heterogeneity of the echogenicity of the liver. No focal liver lesions I have personally reviewed the images and the above interpretation and agree with the findings. Narrative 08/15/2020 10:11 EST US ABDOMEN LIMITED ??08/15/2020 8:30 AM SIGNS AND SYMPTOMS/COMMENTS: liver assessment, chronically elevated liver enzymes r/o cirrhosis, NAFLC COMPARISON: No relevant comparison. TECHNIQUE: Grayscale and Doppler ultrasound evaluation of the right upper quadrant of the abdomen was performed. FINDINGS: PANCREAS: The visualized pancreatic neck and body are within normal limits. LIVER: The liver measures 14.8 cm in length, which is normal. The liver is slightly heterogeneous in its echotexture. No focal liver lesions. RIGHT KIDNEY: The right kidney measures 10.7 cm in length. No hydronephrosis or shadowing renal calculi. GALLBLADDER: The gallbladder wall measures 2 mm in thickness, which is normal. No shadowing gallstones or pericholecystic fluid. There is dependent echogenic material within the gallbladder likely biliary sludge. 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 There is a 0.4 x 0.3 x 0.3 cm polyp extending into the lumen of the gallbladder BILE DUCTS: The common duct measures 1 mm in diameter at the jenni hepatis, which is normal. No intra or extrahepatic biliary ductal dilation. PROXIMAL ABDOMINAL AORTA / IVC: Normal Procedure Note Elzbieta Pruett MD - 08/15/2020 US ABDOMEN LIMITED 08/15/2020 8:30 AM SIGNS AND SYMPTOMS/COMMENTS: liver assessment, chronically elevated liverenzymes r/o cirrhosis, NAFLC COMPARISON: No relevant comparison. TECHNIQUE: Grayscale and Doppler ultrasound evaluation of the right upperquadrant of the abdomen was performed. FINDINGS: PANCREAS: The visualized pancreatic neck and body are within normallimits. LIVER: The liver measures 14.8 cm in length, which is normal. The liver isslightly heterogeneous in its echotexture. No focal liver lesions. RIGHT KIDNEY: The right kidney measures 10.7 cm in length. Nohydronephrosis or shadowing renal calculi. GALLBLADDER: The gallbladder wall measures 2 mm in thickness, which isnormal. No shadowing gallstones or pericholecystic fluid. There isdependent echogenic material within the gallbladder likely biliary sludge.No sonographic Yanes's sign per the field artillery senior sergeant's report. There is a 0.4x 0.3 x 0.3 cm polyp extending into the lumen of the gallbladder BILE DUCTS: The common duct measures 1 mm in diameter at the portahepatis, which is normal. No intra or extrahepatic biliary ductaldilation. PROXIMAL ABDOMINAL AORTA / IVC: Normal IMPRESSION 1. 0.4 cm gallbladder polyp and biliary sludge, no follow-up imaging isrecommended per ACR guidelines. 2. Mild heterogeneity of the echogenicity of the liver. No focal liverlesions I have personally reviewed the images and the above interpretation andagree with the findings. us Daniel Gannon ND IMG US ORDERABLES Final Res ult documented in this encounter Visit Diagnoses Diagnosis Elevated liver enzymes Other nonspecific abnormal serum enzyme levels documented in this encounter Care Teams Novelty Maker Relationship Specialty Start Date End Date Kenny Salazar MD [address] [facility]. [address] [place] [address] PCP - General Neurology 07/26/20 05/15/24 documented as of this encounter
--- OUTSIDE RECORDS SUMMARY | 2024-06-12 19:12 | XMS_ITS | Encounter Summary ---
Author Organization [facility] Address [address] [place] [address] Care Team Providers Care Health And Wellness Instructor Name Role Phone Kenny Salazar MD Primary Care Provider + [phone] Daniel Gannon ND Primary Care Provider [phone] Encounter Details Date Type Department Care Team (Late st Contact Info) Description 07/26/2020 Lab Requisition [facility] Pathology & Laboratory Medicine - [facility] [address] [place] [address] Daniel Gannon ND [address] [place], [place] [address] Epilepsy, unspecified, not intractable, without status epilepticus (HCC-CMS); Other fatigue; Iron deficiency; Prediabetes Social History Tobacco Use Types Packs/Day Years [...] Info) Description 08/24/2024 14:15 EDT Office Visit [facility] Rheumatology & Immunology - [facility] [address] [place], [place] [address] Chantel Juan MD [address] [place] [address] documented as of this encounter Procedures Procedure Name Priority Date/Time Associated Diagnosis Comments IBC Today 07/26/2020 7:48 EST Epilepsy, unspecified, not intractable, without status epilepticus (HCC-CMS) [ICD-10-CM] Other fatigue [ICD-10-CM] Iron deficiency [ICD-10-CM] Prediabetes [ICD-10-CM] LAMOTRIGINE Today 07/26/2020 7:48 EST Epilepsy, unspecified, not intractable, without status epilepticus (HCC-CMS) [ICD-10-CM] Other fatigue [ICD-10-CM] Iron deficiency [ICD-10-CM] Prediabetes [ICD-10-CM] COMPLETE BLOOD COUNT AND DIFFERENTIAL Today 07/26/2020 7:48 EST Epilepsy, unspecified, not intractable, without status epilepticus (HCC-CMS) [ICD-10-CM] Other fatigue [ICD-10-CM] Iron deficiency [ICD-10-CM] Prediabetes [ICD-10-CM] HEMOGLOBIN A1C Today 07/26/2020 7:48 EST Epilepsy, unspecified, not intractable, without status epilepticus (HCC-CMS) [ICD-10-CM] Other fatigue [ICD-10-CM] Iron deficiency [ICD-10-CM] Prediabetes [ICD-10-CM] FERRITIN Today 07/26/2020 7:48 EST Epilepsy, unspecified, not intractable, without status epilepticus (HCC-CMS) [ICD-10-CM] Other fatigue [ICD-10-CM] Iron deficiency [ICD-10-CM] Prediabetes [ICD-10-CM] COMPREHENSIVE METABOLIC PANEL (CMP) Today 07/26/2020 7:48 EST Epilepsy, unspecified, not intractable, without status epilepticus (HCC-CMS) [ICD-10-CM] Other fatigue [ICD-10-CM] Iron deficiency [ICD-10-CM] Prediabetes [ICD-10-CM] documented in this encounter Results * COMPLETE BLOOD COUNT AND DIFFERENTIAL (07/26/2020 7:48 EST) WBC 5.57 4.00 - 10.40 K/cmm 07/26/2020 8:53 [facility] RBC 4.55 4.36 - 5.78 M/cmm 07/26/2020 8:53 [facility] Hemoglobin 13.8 13.8 - 17.3 gm/dL 07/26/2020 8:53 [facility] HCT 40.8 39.5 - 50.2 % 07/26/2020 8:53 [facility] MCV 90 81 - 95 fl 07/26/2020 8:53 [facility] MCH 30.3 27.6 - 33.0 pg 07/26/2020 8:53 [facility] MCHC 33.8 32.8 - 36.4 gm/dL 07/26/2020 8:53 [facility] RDW-CV 12.8 <14.2 % 07/26/2020 8:53 [facility] RDW-SD 42.0 <46.0 fl 07/26/2020 8:53 [facility] PLT 192 141 - 377 K/cmm 07/26/2020 8:53 [facility] MPV 10.0 9.5 - 12.7 fl 07/26/2020 8:53 [facility] % Neutrophils 52.6 % 07/26/2020 8:53 [facility] % Lymphocytes 33.6 % 07/26/2020 8:53 [facility] % Monocytes 7.9 % 07/26/2020 8:53 [facility] % Eosinophils 4.8 % 07/26/2020 8:53 [facility] % Basophils 0.9 % 07/26/2020 8:53 [facility] % Immature Grans 0.2 % 07/26/19 8:53 [facility] Absolute Neutrophils 2.93 2.20 - 8.85 K/cmm 07/26/2020 8:53 [facility] Absolute Lymphocytes 1.87 1.09 - 3.30 K/cmm 07/26/2020 8:53 [facility] Absolute Monocytes 0.44 0.10 - 0.80 K/cmm 07/26/2020 8:53 EST [facility] Absolute Eosinophils 0.27 0.03 - 0.61 K/cmm 07/26/2020 8:53 EST [facility] ABS Basophils 0.05 0.01 - 0.11 K/cmm 07/26/2020 8:53 [facility] Absolute Immature Grans 0.01 0.00 - 0.06 K/cmm 07/26/2020 8:53 EST [facility] Type of Differential: Auto 07/26/2020 8:53 EST [facility] Blood VENOUS BLOOD / Unknown Venipuncture / Unknown 07/26/2020 7:48 EST 07/26/2020 7:50 EST Daniel Gannon ND PACKAGES & DNA PROBE ORDERA BLES Final Result Performing Organization Address City/[facility]/ZIP Co de Phone Number [facility] [address] [place] [address] * FERRITIN (07/26/2020 7:48 EST) Ferritin 81 22 - 322 ng/mL 07/26/2020 10:44 EST [facility] Blood VENOUS BLOOD / Unknown Venipuncture / Unknown 07/26/2020 7:48 EST 07/26/2020 7:50 EST Daniel Gannon ND CHEMISTRY & BLOOD GAS ORDER TERE Final Result Performing Organization Address City/[facility]/ZIP Co de Phone Number [facility] [address] [place] [address] * IBC (07/26/2020 7:48 EST) Iron Binding Capacity 321 261 - 462 ug/dL 07/26/2020 9:10 EST [facility] Blood VENOUS BLOOD / Unknown Venipuncture / Unknown 07/26/2020 7:48 EST 07/26/2020 7:50 EST us Daniel Gannon ND CHEMISTRY & BLOOD GAS ORDER TERE Final Result Performing Organization Address City/[facility]/ZIP Co de Phone Number [facility] [address] [place] [address] * (ABNORMAL) HEMOGLOBIN A1C (07/26/2020 7:48 EST) Hemoglobin A1c 5.7(H) <5.7 % 07/26/2020 14:43 EST [facility] Comment: Glycemic Status References: Normal: ??<5.7% Pre-Diabetes: ??5.7% - 6.4% Diagnostic of Diabetes: ??> or = 6.5% (if confirmed) Goals for glycemic control in diabetics (ADA 2017): <7.0% target for non adults with diabetes. <7.5% target for children and adolescents with Type I Diabetes. More or less stringent targets may be appropriate for individual patients. Est Avg Glucose 117 mg/dL 14:43 EST [facility] Comment:The eAG represents t he A1c result expressed as average glucose in mg/dL. Blood VENOUS BLOOD / Unknown Venipuncture / Unknown 07/26/2020 7:48 EST 07/26/2020 7:50 EST Daniel Gannon ND CHEMISTRY & BLOOD GAS ORDER TERE Final Result [facility] [address] [place] [address] * (ABNORMAL) LAMOTRIGINE (07/26/2020 7:48 EST) Lamotrigine, S 0.9(L) 2.5 - 15.0 mcg/mL 07/28/2020 12:57 EST [facility] Comment: ADDITIONAL INFORMATION This test was developed and its performance characteristics determined by [facility] in a manner consistent with CLIA requirements. This test has not been cleared or approved by the U.S. Food and Drug Administration. Test Performed by: [facility] [address] [place] [address] Sanitation Worker Cleaning Machinery: Ubaldo Gordon M.D. Ph.D.; CLIA# [id number] Blood VENOUS BLOOD / Unknown Venipuncture / Unknown 07/26/2020 7:48 EST 07/26/2020 7:50 EST us Daniel Gannon ND CHEMISTRY & BLOOD GAS ORDER TERE Final Result [facility] [address] [place] [address] * (ABNORMAL) COMPREHENSIVE METABOLIC PANEL (CMP) (07/26/2020 7:48 EST) Sodium 143 136 - 145 mEq/L 07/26/2020 9:07 [facility] Potassium 4.1 3.5 - 5.0 mEq/L 07/26/2020 9:07 [facility] Chloride 102 96 - 110 mEq/L 07/26/2020 9:07 [facility] CO2 Total 28 22 - 32 mEq/L 07/26/2020 9:07 [facility] Glucose 109(H) 70 - 100 mg/dL 07/26/2020 9:07 [facility] BUN 12 10 - 26 mg/dL 07/26/2020 9:07 [facility] Creatinine 0.88 0.66 - 1.25 mg/dL 07/26/2020 9:07 [facility] eGFR 107 >60 mL/min/1.7 3m2 07/26/2020 9:07 [facility] Comment:eGFR calculated brijesh fernandez CKD-EPI equation for non- Americans. Multiply eGFR by 1.16 for patients. Total Protein 7.1 6.3 - 8.2 g/dL 07/26/2020 9:07 [facility] Albumin 4.2 3.4 - 4.9 g/dL 07/26/2020 9:07 [facility] Alkaline Phosphatase 48 38 - 126 U/L 07/26/2020 9:07 [facility] AST 84(H) 15 - 46 U/L 07/26/2020 9:07 [facility] ALT 48 <50 U/L 07/26/2020 9:07 [facility] Bilirubin, Total 0.5 <1.4 mg/dL 07/26/19 9:07 [facility] Calcium 9.1 8.5 - 10.5 mg/dL 07/26/2020 9:07 [facility] Calculated Calcium 8.9 8.5 - 10.5 mg/dL 07/26/2020 9:07 [facility] Blood VENOUS BLOOD / Unknown Venipuncture / Unknown 07/26/2020 7:48 EST 07/26/2020 7:50 EST Daniel Gannon ND CHEMISTRY & BLOOD GAS ORDER TERE Final Result [facility] [address] [place] [address] documented in this encounter Visit Diagnoses Diagnosis Epilepsy, unspecified, not intractable, without status epilepticus ([facility]) Other fatigue Iron deficiency Iron deficiency anemia, unspecified Prediabetes Other abnormal glucose documented in this encounter Care Teams Health And Wellness Instructor Relationship Specialty Start Date End Date Kenny Salazar MD [address] [facility]. [address] [place] [id number] PCP - General Neurology 07/26/20 05/15/24 Daniel Gannon ND [address] [place] [address] [place] [address] PCP - General Naturopathic Medicine 05/16/24 documented as of this encounter
--- OUTSIDE RECORDS SUMMARY | 2024-06-12 19:12 | XMS_ITS | Encounter Summary ---
Author Organization [facility] Address [address] [place] [address] Care Team Providers Care Speech Therapy Director Name Role Phone Pao Gupta ND Primary Care Provider [phone] Daniel Gannon ND Primary Care Provider [phone] Reason for Visit * Reason Onset Date Comments Medication Management 12/01/2016 Encounter Details Date Type Department Care Team (Late st Contact Info) Description 12/01/2016 Telephone [facility] Adult Neurology - [facility] [place] [address] [place], [place] [id number] Domenic Carroll MD [address] [place] [address] Medication Management Social History Tobacco Use Types [...] of a physical, mental, or emotional condition, do you have difficulty doing errands alone such as visiting a doctor's office or shopping? (15 years old or older) Answer Date of Assessment Author No 11/26/2016 7:43 EDT Jose Medrano RN documented as of this encounter Mental Status * Because of a physical, mental, or emotional condition, do you have serious difficulty concentrating, remembering, or making decisions? (5 years old or older) Answer Entry Date Author No 11/26/2016 7:43 EDT Jose Medrano RN documented in this encounter Miscellaneous Notes * Telephone Encounter - Bette Zhu RN - 12/02/2016 1537 EDT Attempted return call to Feliciano. for call back. * Telephone Encounter - Bette Asencio - 12/01/2016 1615 EDT Feliciano called to say he would like to stop taking his medication as soon as possible. He said Dr. Carroll advised not to just stop taking them so he needs to know how to titrate off the medication. Itis the zonisamide (ZONEGRAN) 100 mg capsule. Thank you documented in this encounter Plan of Treatment Upcoming Encounters Date Type Department Care Team (Late st Contact Info) Description 08/24/2024 14:15 EDT Office Visit [facility] Rheumatology & [place] [address] Chantel Juan MD [address] [place] [id number] documented as of this encounter Visit Diagnoses Not on filedocumented in this encounter Care Teams Speech Therapy Director Relationship Specialty Start Date End Date Pao Gupta ND PCP - General 03/06/15 12/15/16 Daniel Gannon ND [address] [place] [address] [place] [address] PCP - General 12/16/16 07/25/20 documented as of this encounter
--- OUTSIDE RECORDS SUMMARY | 2024-06-12 19:12 | XMS_ITS | Encounter Summary ---
Author Organization [facility] Address [address] [place] [address] Care Team Providers Care [employer] Principal Name Role Phone Daniel Gannon ND Primary Care Provider [phone] Reason for Visit * Reason Comments Seizures awoke to pt hav ing seizure activity in bed. hx etoh w/d sz in past. stopped sz meds in May 2017. last drink 2d ago. post-ictal on scene, AOx3 on arrival. no inury noted. Encounter Details Date Type Department Care Team (Late st Contact Info) Description 07/29/2017 2:56 EST - 07/29/2017 5:58 EST Emergency [facility] Emergency Department - [facility] [address], [place] [id number] Jeaneth Quiroga MD MPH [address] [facility], Level [address] [place] [address] Emergency, MD Pinky Seizure ([facility] ([facility]) (Primary Dx) Discharge Disposition: Home or Self [...] Sign Reading Time Taken Comments Blood Pressure 142/69 07/29/2017 0500 EST Pulse - - Temperature 37.4 ??C (99.4 ??F) 07/29/2017 0300 EST Respiratory Rate 14 07/29/2017 0400 EST Oxygen Saturation 100% 07/29/2017 0500 EST Inhaled Oxygen Concentration - - Weight - [...] Valero RN documented in this encounter Discharge Diagnoses Diagnosis G40.909 Epilepsy, unspecified, not intractable, without status epilepticus-G40.909[ICD-10-CM] Z87.891 Personal history of nicotine dependence-Z87.891[ICD-10-CM] documented in this encounter Discharge Instructions * Instructions* Jeaneth Quiroga MD - 07/29/2017 5:47 EST You were evaluated tonight for recurrent seizure. Please contact your primary care and neurologist to discuss this episode tonight and discuss risks and benefits of returning to taking seizure medication. It is very important that you seek assistance for alcohol cessation and get plenty of sleep asthis and previous episodes have been related to patterns of alcohol use and decreased sleep. Pleasereturn with recurrent seizures, numbness weakness passing out or fevers. Please avoid any activities that may be dangerous should you have a recurrent seizure such as driving, swimming alone, or putting herself in a position where falling would cause major injury. * Attachments The following attachments cannot be sent through Care Everywhere. * SEIZURE (HUNGARIAN) documented in this encounter Medications at Time of Discharge zonisamide (ZONEGRAN) 100 mg capsule Take 1 Cap by mouth daily. 60 Cap 1 11/27/2016 06/04/2020 documented as of this encounter Discharge Disposition Disposition Code Departure Means Destination Home or Self Care Walk-out Home documented in this encounter ED Notes * Reta Devries RN - 07/29/2017 0558 EST Pt d/c ambulatory with a normal gait and in NAD. Pt d/c with instructions to follow up with PCP andto avoid activities that put him at risk. Pt provided with instructions. Resp unlabored. Skin warm and dry. Pt AO. * Reta Devries RN - 07/29/2017 0522 EST Assumed care of patient, report received from Rocio French RN. Pt appears to be asleep with respirations noted to be within normal limits. No concerns or distress noted at this time. Pt remains on pulse 0xmonitor. * Marilyn Lobato RN - 07/29/2017 0430 EST Blood drawn via saline lock per protocol, tiger and purple tube(s) sent to lab per order. * Jeaneth Quiroga MD - 07/29/2017 0408 EST DOS: 07/29/2017 Chief Complaint Patient presents with ??? Seizures awoke to pt having seizure activity in bed. hx etoh w/d sz in past. stopped sz meds in May 2017. last drink 2d ago. post-ictal on scene, AOx3 on arrival. no inury noted. HPI Comments: I, Yonatan Reyes, am scribing for Jeaneth Quiroga MD while he/she is personally performing the service. Yonatan Reyes 07/29/2017 4:09 Feliciano Moore is a 37 y.o. male with a history of seizure, HTN, and alcohol abuse who presents tot ED status post witnessed seizure this morning. Patient endorses 2 prior episodes of seizures inJ2016, at which time he was evaluated by Neurology and started on zonisamide, although discontinued this soon after due to nausea. This morning he exhibited seizure activity, which was witnessed by his who was awoken by the patient in bed, at which time EMS was called. Patient reportedly drinks 1 alcohol beverage per day, noting sudden cessation of this 2 days ago. He attributes the episode today to decreased alcohol use and recent decreased sleep, which was similar to previous precipit ory events. The patient's past medical, family, and social history was reviewed and updated as needed. The history is provided by medical records and the patient. Review of Systems Review of Systems Neurological: Positive for seizures. Psychiatric/Behavioral: Positive for sleep disturbance. The patient's past medical, family and social history was reviewed and updated as needed. No Known Allergies Vital Signs Vitals Reassessment?: Yes Temp: 37.4 ??C (99.4 ??F) Temp src: Oral Heart Rate: 72 BPM Resp: 14 SpO2: 100 % BP: (!) 142/69 BP MAP: 84 mm Hg Physical Exam Constitutional: He is oriented to person, place, and time. He appears well- developed and well-nourished. No distress. Well-appearing, not tremulous. HENT: Head: Normocephalic and atraumatic. Mouth/Throat: Oropharynx is clear and moist. Eyes: Conjunctivae are normal. Neck: Normal range of motion. Neck supple. Cardiovascular: Normal rate, regular rhythm, normal heart sounds and intact distal pulses. Pulmonary/Chest: Effort normal and breath sounds normal. No respiratory distress. Abdominal: He exhibits no distension. There is no tenderness. Neurological: He is alert and oriented to person, place, and time. He has normal reflexes. Coordination normal. Skin: Skin is warm and dry. He is not diaphoretic. Psychiatric: He has a normal mood and affect. His behavior is normal. Nursing note and vitals reviewed. RESULTS EKG orders: None Radiology orders: None ED Lab Results Labs Reviewed HEMAGRAM AND DIFFERENTIAL - Abnormal Result Value Status WBC 8.66 Final RBC 4.48 Final Hemoglobin 14.5 Final HCT 39.3 (*) Final MCV 88 Final MCH 32.4 Final MCHC 36.9 (*) Final RDW-CV 12.6 Final RDW-SD 40.1 Final PLT 208 Final MPV 9.2 (*) Final Neutrophils 74.4 Final Lymphocytes 13.9 Final Monocytes 9.4 Final Eosinophils 1.0 Final Basophils 0.6 Final Immature Grans 0.7 Final ABS Neutrophils 6.45 Final ABS Lymphs 1.20 Final ABS Monocytes 0.81 (*) Final ABS Eosinophils 0.09 Final ABS Basophils 0.05 Final ABS Immature Grans 0.06 Final Type of Diff: Automated Final COMPREHENSIVE METABOLIC PANEL (CMP) - Abnormal Potassium 4.3 Final Sodium 136 Final Chloride 100 Final CO2 28 Final Total Alkaline Phosphatase 50 Final Bilirubin, Total 0.7 Final AST 44 Final ALT 37 Final Albumin 3.9 Final Total Protein 6.6 Final Creatinine 0.99 Final GFR, Calculated 97 Final BUN 23 Final Calcium 9.2 Final Calculated Calcium 9.3 Final Glucose, Serum 101 (*) Final Fasting? Unknown Final ETHANOL, BLOOD Ethanol <10 Final MAGNESIUM Magnesium 2.1 Final Relevant Data Procedures ED COURSE A medical screening exam was performed. On exam, well-appearing, no distress, not tremulous. Discussed with patient options for alcohol detox, given recent cessation to which he attributes hisseizure episode this morning. Patient had labs that were reviewed independently by myself, which were unremarkable. I suspect that given previous seizures related to change in alcohol pattern and lack of sleep, thatthis is of similar etiology. Patint is not interested starting on starting new medication. Advised contact with PCP and neurologist during business hos to discuss any recommendations. Patient discharged to home. Prior to discharge usual and customary precautions were reviewed with the patient and/or family including follow-up instructions and reasons to return to the Emergency Department if condition worsens, does not improve as expected, or other new concerns arise. ASSESSMENT AND PLAN Final diagnoses: Seizure (CMS-HCC) DISPOSITION: Discharged The patient's pain was managed to an adequate level weighing risk vs. benefit of further medications. Upon departure from the Emergency Department, the patient's pain was 0 on a zero to ten scale. Any further pain treatment will be at the discretion of the provider following up with the patient based on their clinical assessment. Condition at departure from the Emergency Department: Improved PCP: Daniel Gannon [facility] 07/29/2017 5:46 No flowsheet data found. This documentation is recorded by Yonatan Reyes acting as Scribe under the direction and presenceof Jeaneth Quiroga MD. Jeaneth Quiroga MD: I personally performed the services recorded by the scribe in my presence. I confirm the scribe's documentation has been reviewed by me to accurately and completely record my work, treatment, procedures, and medical decision making. documented in this encounter Plan of Treatment Upcoming Encounters Date Type Department Care Team (Late st Contact Info) Description 08/24/2024 14:15 EDT Office Visit [facility] Rheumatology & Immunology - [facility] [address] [place] [address] Chantel Juan MD [address] [place], [place] [address] documented as of this encounter Procedures Procedure Name Priority Date/Time Associated Diagnosis Comments COMPLETE BLOOD COUNT AND DIFFERENTIAL STAT 07/29/2017 4:25 EST MAGNESIUM STAT 07/29/2017 4:25 EST ETHANOL, BLOOD STAT 07/29/2017 4:25 EST COMPREHENSIVE METABOLIC PANEL (CMP) STAT 07/29/2017 4:25 EST documented in this encounter Results * MAGNESIUM (07/29/2017 4:25 EST) Pathologist [facility] Magnesium 2.1 1.7 - 2.8 mg/dl 07/29/2017 4:50 [facility] Blood specimen (specimen) BLOOD SPECIMEN / Unknown 07/29/2017 4:25 EST 07/29/2017 4:28 EST Jeaneth Quiroga MD MPH CHEMISTRY & BLOOD GAS ORD ERABLES Final Result Performing Organization Address [facility]/ZIP Co de Phone Number [facility] [address] [place] [address] * ETHANOL, BLOOD (07/29/2017 4:25 EST) Pathologist [facility] Ethanol <10 <10 mg/dl 07/29/2017 4:50 [facility] Blood specimen (specimen) BLOOD SPECIMEN / Unknown 07/29/2017 4:25 EST 07/29/2017 4:28 EST Jeaneth Quiroga MD MPH CHEMISTRY & BLOOD GAS ORD ERABLES Final Result Performing Organization Address City/[facility] Co de Phone Number [facility] [address] [place] [address] * (ABNORMAL) COMPREHENSIVE METABOLIC PANEL (CMP) (07/29/2017 4:25 EST) Pathologist [facility] Potassium 4.3 3.5 - 5.0 mEq/L 07/29/2017 4:50 [facility] Sodium 136 136 - 145 mEq/L 07/29/2017 4:50 [facility] Chloride 100 96 - 110 mEq/L 07/29/2017 4:50 [facility] CO2 28 22 - 32 mEq/L 07/29/2017 4:50 [facility] Total Alkaline Phosphatase 50 38 - 126 U/L 07/29/2017 4:50 [facility] Bilirubin, Total 0.7 <1.4 mg/dl 07/29/19 18 4:50 [facility] AST 44 15 - 46 U/L 07/29/2017 4:50 [facility] ALT 37 21 - 72 U/L 07/29/2017 4:50 [facility] Albumin 3.9 3.4 - 4.9 g/dl 07/29/2017 4:50 [facility] Total Protein 6.6 6.3 - 8.2 g/dl 07/29/2017 4:50 [facility] Creatinine 0.99 0.66 - 1.25 mg/dl 07/29/2017 4:50 [facility] GFR, Calculated 97 >60 ml/min/1.7 3m2 07/29/2017 4:50 [facility] Comment: eGFR calculated using CKD-EPI equation for non Americans. Multiply eGFR by 1.16 for Americans. BUN 23 10 - 26 mg/dl 07/29/2017 4:50 [facility] Calcium 9.2 8.5 - 10.5 mg/dl 07/29/2017 4:50 [facility] Calculated Calcium 9.3 8.5 - 10.5 mg/dl 07/29/2017 4:50 [facility] Glucose, Serum 101(H) 70 - 100 mg/dl 07/29/2017 4:50 [facility] Fasting? Unknown 07/29/2017 4:28 [facility] Blood specimen (specimen) BLOOD SPECIMEN / Unknown 07/29/2017 4:25 EST 07/29/2017 4:28 EST us Jeaneth Quiroga MD MPH CHEMISTRY & BLOOD GAS ORD ERABLES Final Result [facility] [address] [place] [address] * (ABNORMAL) HEMAGRAM AND DIFFERENTIAL (07/29/2017 4:25 EST) WBC 8.66 4.0 - 10.4 K/cmm 07/29/2017 4:49 [facility] RBC 4.48 4.36 - 5.78 M/cmm 07/29/2017 4:49 [facility] Hemoglobin 14.5 13.8 - 17.3 gm/dl 07/29/2017 4:49 [facility] HCT 39.3(L) 39.5 - 50.2 % 07/29/2017 4:49 [facility] MCV 88 81 - 95 fl 07/29/2017 4:49 [facility] MCH 32.4 27.6 - 33.0 pg 07/29/2017 4:49 [facility] MCHC 36.9(H) 32.8 - 36.4 gm/dl 07/29/2017 4:49 [facility] RDW-CV 12.6 <14.2 % 07/29/2017 4:49 [facility] RDW-SD 40.1 <46.0 fl 07/29/2017 4:49 [facility] PLT 208 141 - 377 K/cmm 07/29/2017 4:49 [facility] MPV 9.2(L) 9.5 - 12.7 fl 07/29/2017 4:49 [facility] % Neutrophils 74.4 % 07/29/2017 4:49 [facility] % Lymphocytes 13.9 % 07/29/2017 4:49 [facility] % Monocytes 9.4 % 07/29/2017 4:49 [facility] % Eosinophils 1.0 % 07/29/2017 4:49 [facility] % Basophils 0.6 % 07/29/2017 4:49 [facility] % Immature Grans 0.7 % 07/29/2017 4:49 [facility] ABS Neutrophils 6.45 2.20 - 8.85 K/cmm 07/29/2017 4:49 [facility] ABS Lymphs 1.20 1.09 - 3.30 K/cmm 07/29/2017 4:49 [facility] ABS Monocytes 0.81(H) 0.1 - 0.8 K/cmm 07/29/2017 4:49 [facility] ABS Eosinophils 0.09 0.03 - 0.61 K/cmm 07/29/2017 4:49 EST [facility] ABS Basophils 0.05 0.01 - 0.11 /[facility] 07/29/2017 4:49 EST [facility] ABS Immature Grans 0.06 0 - 0.06 /[facility] 07/29/2017 4:49 EST [facility] Type of Diff: Automated 07/29/2017 4:49 EST [facility] Blood specimen (specimen) BLOOD SPECIMEN / Unknown 07/29/2017 4:25 EST 07/29/2017 4:28 EST us Jeaneth Quiroga MD MPH PACKAGES & DNA PROBE RHYS K[place] Final Result [facility] [address] [place] [address] documented in this encounter Visit Diagnoses Diagnosis Seizure (HCC-CMS)- Primary Other convulsions documented in this encounter Care Teams [employer] Principal Relationship Specialty Start Date End Date Daniel Gannon ND [address] [place] [id number] PCP - General 12/16/16 07/25/20 documented as of this encounter
--- OUTSIDE RECORDS SUMMARY | 2024-06-12 19:12 | XMS_ITS | Encounter Summary ---
Author Organization [facility] Address [address] [place] [address] Care Team Providers Care Enlisted Aircrew/Aerial Observer/Gunner Name Role Phone Daniel Gannon Giovanny GILLILAND Primary Care Provider [phone] Kenny Salazar MD Primary Care Provider +- [phone] Reason for Visit * Reason Onset Date Comments New/Evolving Symptoms 05/23/2020 Encounter Details Date Type Department Care Team (Late st Contact Info) Description 05/23/2020 Telephone [facility] Neurology - [address] [place] [address] [place], [place] [id number] [place] [address] [address] New/Evolving Symptoms Social History Tobacco Use Types Packs/Day Years [...] Telephone Encounter - Leno Gerard RN - 05/23/2020 4344 EST Per patient and Patient has been seen with [facility] neurology most recently in 2017. Since then seizure history is: 1 seizure last night, One in Mar, and before that no seizures 3 years. All around 90 sec to 2 min in duration. Patient was D/C AEDs by PCP in 2017. Please see most recent office note. Patient and would prefer to see an epilepsy provider other than [facility] and they inquire if there are any other attendings in the department taking patients. * Telephone Encounter - Gerry Thomson - 05/23/2020 1423 EST Dominique from PCP office called back and said our nurse should reach out to the patient directly when we have an answer. Feliciano's cell is [phone] * Telephone Encounter - Wandy Dyson - 05/23/2020 1355 EST PCP called because pt has had a few grand maul seizures, most recently yesterday 2 in the past 2 months, 3in the last 7 months. Pt is not being medication for seizures. PCP would like to know should the pt be seen urgently here? Should pt go to ED? Please call dominique back at [phone] ([place] EXT she thinks its number 1) documented in this encounter Plan of Treatment Upcoming Encounters Date Type Department Care Team (Late st Contact Info) Description 08/24/2024 14:15 EDT [facility] Rhe[facility]ology & Immunology - [facility] [address] [place], [place] [phone] Chantel Juan MD [address] [place], [place] [address] documented as of this encounter Visit Diagnoses Not on filedocumented in this encounter Care Teams Enlisted Aircrew/Aerial Observer/Gunner Relationship Specialty Start Date End Date Daniel Gannon ND [address] [place] [address] [facility] [place] [address] PCP - General 12/16/16 07/25/20 Kenny Salazar MD [address] [place] [address]. [address] [place] [phone] PCP - General Neurology 07/26/20 05/15/24 documented as of this encounter
--- OUTSIDE RECORDS SUMMARY | 2024-06-12 19:12 | XMS_ITS | Encounter Summary ---
Author Organization [facility] Address [address] [place] [address] Care Team Providers Care Heel Emery Buffer Name Role Phone Daniel Gannon ND Primary Care Provider [phone] Kenny Salazar MD Primary Care Provider + [phone] Daniel Gannon ND Primary Care Provider [phone] Reason for Visit * Reason Onset Date Comments Appointment Related 02/23/2020 Encounter Details Date Type Department Care Team (Late st Contact Info) Description 02/23/2020 Telephone [facility] Cardiology - [address] [place] [address] Kris Crawford MD Appointment Related Social History [...] encounter Miscellaneous Notes * Telephone Encounter - Ashley Trimble - 02/23/2020 1002 EDT Patient calling to cancel Echo and FUR with Dr Crawford on 04/09. Patient will call back to reschedule. documented in this encounter Plan of Treatment Upcoming Encounters Date Type Department Care Team (Late st Contact Info) Description 08/24/2024 14:15 EDT Office Visit [facility] Rheumatology & Immunology - [facility] [address] [place], [place] [phone] Chantel Juan MD [address] [place], [place] [phone] documented as of this encounter Visit Diagnoses Not on filedocumented in this encounter Care Teams Heel Emery Buffer Relationship Specialty Start Date End Date Gravett, Daniel W, ND [address] [place] [address] PCP - General 12/16/16 07/25/20 Kenny Salazar MD [address] [place] [address]. [address] [place] [phone] PCP - General Neurology 07/26/20 05/15/24 Daniel Gannon ND [address] [place] [address] PCP - General Naturopathic Medicine 05/16/24 documented as of this encounter
--- OUTSIDE RECORDS SUMMARY | 2024-06-12 19:12 | XMS_ITS | Encounter Summary ---
Author Organization [facility] Address [address] [place] [address] Care Team Providers Care Brine Purifier Name Role Phone Daniel Gannon ND Primary Care Provider [phone] Reason for Visit * Reason Comments Cardiac Testing Encounter Details Date Type Department Care Team (Latest Contact Info) Description 04/04/2019 7:15 EDT Procedure visit [facility] Cardiology - [address] [place] [address] Kris Crawford MD Echo, [place] Discharge Disposition: Auto Discharge Social History Tobacco Use Types Packs/Day Years [...] documented in this encounter Discharge Diagnoses Diagnosis Q23.1 Congenital insufficiency of aortic valve-Q23.1[ICD-10-CM] 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[ICD-10-CM] I51.7 Cardiomegaly-I51.7[ICD-10-CM] documented in this encounter Discharge Disposition Disposition Code Departure Means Destination Auto Discharge documented in this encounter Plan of Treatment Upcoming Encounters Date Type Department Care Team (Late st Contact Info) Description 08/24/2024 14:15 EDT Office Visit [facility] Rheumatology & Immunology - [facility] [address] [place], [place] [address] Chantel Juan MD [address] [place], [place] [address] documented as of this encounter Visit Diagnoses Not on filedocumented in this encounter Care Teams Brine Purifier Relationship Specialty Start Date End Date Daniel Gannon ND [address] [place] [address] [facility], [place] [address] PCP - General 12/16/16 07/25/20 documented as of this encounter
--- OUTSIDE RECORDS SUMMARY | 2024-06-12 19:12 | XMS_ITS | Encounter Summary ---
Author Organization [facility] Address [address] [place] [address] Care Team Providers Care Human Resources Training Manager Name Role Phone Daniel Gannon ND Primary Care Provider [phone] Reason for Visit * Reason Comments New Patient Visit Encounter Details Date Type Department Care Team (Late st Contact Info) Description 06/04/2020 7:48 EST - 06/04/2020 23:59 EST Hospital Encounter [facility] Neurophysiology - [facility] ([place] [address]) [address], [place] [id number] Kenny Salazar MD [address] [facility]. [address] [place] [phone] Seizure (HCC-CMS) (Primary Dx) Discharge Disposition: Home [...] 06/04/2020 09/05/2020 documented as of this encounter Ordered Prescriptions Prescription Sig Dispense Quantity Refills Last Filled Start Date End Date lamoTRIgine (LAMICTAL) 100 mg tablet As directed up to 200 mg daily 60 Tab 2 06/04/2020 documented in this encounter Discharge Disposition Disposition Code Departure Means Destination Home or Self Care documented in this encounter Progress Notes * Kenny Salazar MD - 06/04/2020 1400 EST [facility] [place] [facility] Name: Feliciano Moore Clinical Neurophysiology Laboratory [address] : 1980 [place], [place] Date: 06/04/2020 Epilepsy Program - New Patient Consultation Provider requesting consultation: Daniel Gannon ND Primary physician: Daniel Gannon ND CHIEF COMPLAINT: Chief Complaint Patient presents with ??? New Patient Visit PRESENT ILLNESS: A 40 y.o. right handed man who presents with a chief complaint of seizures. This visit is performed using a teleneurology interface (Taggstr). The patient agrees to participate in the visit via a tele-neurology interface. The patient is at home and joined by his , Cherri. I am performing this visit from my office at a private location. No one else is present in [facility] during the meeting. He notes that he has started having seizures again. Last seizure on 23 MAY 2020 Onset age 21 years and he recalls it was a Wednesday morning after his big birthday. Witnessed convulsion. In setting of ETOH heavy use had 2 in one night NOV 2016 and 28 JUL 2017. Quit ETOH. Then on 2019 had a recurrence and then in MAR and now MAY now all of these have been from sleep. Bilateral tonic seizures with deep breathing, bite tongue and prominent post- ictal symptoms. No focal features. He is also irritable and wants to sleep. The next day he will have muscle pain. No focal weakness or aphasia as postictal feature. Took Zonisamide for about 3 weeks and perhaps a bit loopy and in addition he really didn't want to take a medication. Of note, he also had a syncopal episode in DEC 2019 and evaluation led to discovery of anemia and borderline diabetes. Treated w iron supplements and changed diet. Epilepsy Risk Factors: Complication of or early development Yes, Recalls he was in an oxygen tent for the first few days after and had a paralyzed vocal cord. No school difficulty and graduated age 17 years. Significant head trauma: Yes, Age 17 years with LOC ~ 20 minutes, nasal fracture, broke floor of sinus, nasal septum, sheared lips from my face and 67 stiches, collar bone shatter, hip fracture. No post-neurological deficits. Febrile convulsion: No. SCIENTIFIC SPECIALIST infection: No Family history of epilepsy: No -does not know paternal side of family. Brain tumor: No. Stroke: No. Prior neurosurgery: No. Substance abuse: Started drinking age 21 years, often binge, in his 20s he would drink 750 ml hard liquor. Sober JUL 2017. Remote cocaine. ALLERGIES: Patient has no known allergies. Outpatient Medications Marked as Taking for the 06/04/20 encounter (Hospital Encounter) with Kenny Salazar MD Medication Sig Dispense Refill ??? CANNABIDIOL, CBD, EXTRACT ORAL Take by mouth as needed. Takes at bedtime. Past Medical History: Migraine onset 5th grade, migraine and loses hemivision for 30 s or so and suffers about 10 timesper years since then, 80% of time it is right tremayne-field - often just superior quadrant. HTN Aortic valve regurgitation Past Surgical History: Procedure Laterality Date ??? NASAL SEPTUM SURGERY [place] teet extraction Social History: . [place]. They have son who is 9.5 years. 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 Heart disease including AFIB and HTN in Mom and everybody REVIEW OF SYSTEMS: Review of Systems - Sees a chiropractor for right neck constricted something in his shoulder. Gets tingling in his right pinky. No headache. No other focal sensorimotor symptoms. PSYCH: Affirms depression though not anxiety issues. Describes being grumpy, irritable. No SI. SLEEP: Feels rested on waking. Some snoring has appeared. No daytime naps. Weeknight hs 21:30 and LO 22:30. Wakes 5:3-6AM. EXAMINATION: Athletic appearing adult man. No ptosis or eye movement abnormality. No facial asymmetry. No tremoror pronator drift. PREVIOUS EVALUATIONS: MRI brain wo/w rick MS protocol 04/12/2015: Normal ?- MRI wo/w rick epilepsy protocol 11/26/2016: Normal ?- MRI brain 3T w/wo contrast (02/02/2017 @ [facility]): Normal study. ?? EEG: ?- Standard EEG 11/26/2016: Normal ?- Standard EEG 12/16/2016: Normal - 72-hour ambulatory EEG ( January 2017 @ [facility]): Normal study Impression Epilepsy, probable despite history of normal EEG and MR studies and with some associated with alcohol use. We reviewed treatment options. We also reviewed risks of seizure related injury including operating heavy machinery including a car, drowning risk and risks related to unguarded heights and heat sources. He relays understanding. I urged him to call if he suffers another seizure. The patient was scheduled for a return visit in 3 months. Feliciano expressed understanding of and agrees with the above plan. I spent a total of 25 minutes in face to face time with this patient and 15 minutes of that time was spent in counseling and coordination of care as described in the progress note. Kenny Salazar MD 06/04/2020 14:06 documented in this encounter Plan of Treatment Upcoming Encounters Date Type Department Care Team (Late st Contact Info) Description 08/24/2024 14:15 EDT Office Visit [facility] Rheumatology & Immunology - [facility] [address], [place] [address] Chantel Juan MD [address] [place], [place] [id number] documented as of this encounter Visit Diagnoses Diagnosis Seizure ([facility])- Primary Other convulsions documented in this encounter Discontinued Medications Medication Sig Discontinue Reason Start Date End Da te zonisamide (ZONEGRAN) 100 mg capsule Take 1 Cap by mouth daily. 11/27/2016 06/04/2020 documented as of this encounter Care Teams Human Resources Training Manager Relationship Specialty Start Date End Date Daniel Gannon ND [address] [place] [address] [place] [address] PCP - General 12/16/16 07/25/20 documented as of this encounter
--- OUTSIDE RECORDS SUMMARY | 2024-06-12 19:12 | XMS_ITS | Encounter Summary ---
Author Organization [facility] Address [address] [place] [address] Care Team Providers Care Plant Director Name Role Phone Daniel Gannon ND Primary Care Provider [phone] Encounter Details Date Type Department Care Team (Late st Contact Info) Description 01/23/2017 15:27 EDT - 01/23/2017 23:59 EDT Hospital Encounter [facility] Neurophysiology - [facility] ([place] [address]) [address] [place] [address] Kim Grimaldo MD [facility] Location [address] [place] [address] Wolf Hightower MD [address] [facility]. [address] [place] [phone] Seizure (CMS-HCC) ([facility]) Discharge Disposition: Auto Discharge Social History Tobacco [...] Jose Benson RN documented in this encounter Discharge Diagnoses Diagnosis R56.9 Unspecified convulsions-R56.9[ICD-10-CM] documented in this encounter Medications at Time of Discharge zonisamide (ZONEGRAN) 100 mg capsule Take 1 Cap by mouth daily. 60 Cap 1 11/27/2016 06/04/2020 documented as of this encounter Discharge Disposition Disposition Code Departure Means Destination Auto Discharge Home documented in this encounter Procedure Notes * Wolf Hightower MD - 01/23/2017 7998 EDTProcedure(s): AMBULATORY EEG- TRANSCRIBED ORDER Pre-Procedure Diagnose(s): Seizures ([facility]) Post-Procedure Diagnose(s): Seizures ([facility]) 24 Hour Ambulatory EEG History: This is a 36 y.o. man referred for evaluation of seizure. Current Outpatient Prescriptions Medication Sig Dispense Refill ??? zonisamide (ZONEGRAN) 100 mg capsule Take 1 Cap by mouth daily. 60 Cap 1 No current facility-administered medications for this encounter. . Procedure: A 21 channel ambulatory electroencephalogram/EKG was initiated in the clinical neurophysiology laboratory at the [facility] [place] [facility] and the patient then had the ambulatory recording as an outpatient. The 10/20 system of electrode placement was used and both bipolar and referential electrode montages were monitored. The patient was recorded during sleep and awake. There recording was from 1200 on 01/23/17 to 1200 on 01/24/17. Description: During the awake state with the eyes lightly closed the background consisted of 10-11 Hz, 40-50 microvolt alpha which attenuated appropriately with eye opening. Low amplitude beta activity was seen in the anterior head region. There was a normal anterior-posterior voltage gradient. With eye opening the background consisted of a low to moderate voltage mixture of beta and alpha range frequencies. No asymmetries of background rhythm were seen. With drowsiness there was waxing and waning of the background rhythms with eventual replacement by a mixture of beta, theta and alpha. Stage II of sleep was characterized by vertex sharp waves and symmetrical sleep spindles. Slow wave sleep consisted primarily of diffuse delta and theta activity. REM sleep with rapid eye movements and a moderate mixture of theta and alpha activity was noted. No epileptiform discharges were present. No event markers were pressed. Impression: This ambulatory EEG is normal during the awake and sleep states. Clinical Correlation: No interictal epileptiform discharges recorded during this study to help support a diagnosis of epilepsy. Wolf Hightower MD Professor of Neurological Sciences [facility] [place] [facility] documented in this encounter Plan of Treatment Upcoming Encounters Date Type Department Care Team (Late st Contact Info) Description 08/24/2024 14:15 EDT Office Visit [facility] Rheumatology & Immunology - [facility] [address] [place] [address] Chantel Juan MD [address] [place] [address] documented as of this encounter Visit Diagnoses Diagnosis Seizure (HCC-CMS) Other convulsions documented in this encounter Care Teams Plant Director Relationship Specialty Start Date End Date Daniel Gannon ND [address] [place] [address] [place] [address] PCP - General 12/16/16 07/25/20 documented as of this encounter
--- OUTSIDE RECORDS SUMMARY | 2024-06-12 19:12 | XMS_ITS | Encounter Summary ---
Author Organization [facility] Address [address] [place] [address] Care Team Providers Care Infrastructure Manager Name Role Phone Daniel Gannon ND Primary Care Provider [phone] Reason for Visit * Reason Onset Date Comments Appointment Related 11/25/2017 Encounter Details Date Type Department Care Team (Late st Contact Info) Description 11/25/2017 Telephone [facility] Neurophysiology - [facility] ([address]) [address] [place] [address] [place] [address] [phone] Appointment Related Social History Tobacco Use Types [...] encounter Miscellaneous Notes * Telephone Encounter - Elzbieta Hernandez - 11/26/2017 1234 EDT Reason for Call: Appointment Related Call Detail: I left a message at the [facility] asking for a call back so I could reschedule Mr. Moore's appointment. Last visit: Next visit: Elzbieta Hernandez 11/26/2017 12:34 * Telephone Encounter - Elzbieta Hernandez - 11/26/2017 1233 EDT I left a message for Mr. Moore on his machine asking him to call to reschedule. * Telephone Encounter - Leta Vallejo - 11/25/2017 1725 EDT PAS Message: The patient called to cancel his appointment for 12/03 at 8:30 because he will be out of town. He requested that you call to reschedule. documented in this encounter Plan of Treatment Upcoming Encounters Date Type Department Care Team (Late st Contact Info) Description 08/24/2024 14:15 EDT Office Visit [facility] Rheumatology & Immunology - [facility] [address], [place] [phone] Chantel Juan MD [address] [place], [place] [phone] documented as of this encounter Visit Diagnoses Not on filedocumented in this encounter Care Teams Infrastructure Manager Relationship Specialty Start Date End Date Daniel Gannon ND [address] [place] [address] [place] [address] PCP - General 12/16/16 07/25/20 documented as of this encounter
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
--- OUTSIDE RECORDS SUMMARY | 2024-06-12 19:12 | XMS_ITS | Encounter Summary ---
Author Organization [facility] Address [address] [place] [address] Care Team Providers Care Stamp Pad Maker Name Role Phone Daniel Gannon DARSHANA Primary Care Provider [phone] Reason for Visit * Office Procedure (Routine) - Closed Specialty Diagnoses / Procedures Referred By See hickman Referred To Contact Neurology Diagnoses Seizure ([facility]) Procedures EEG Rob Swan MD Phone: tel: fax: [facility] Neurophysiology [facility] ([address] [address]) [address] [place] [address] Phone: tel: fax: Referral ID Status Reason Start Date Expiration Date Visits Re quested Visits Authorized [id number] Closed 12/22/2016 1 1 Encounter Details Date Type Department Care Team (Late st Contact Info) Description 01/22/2017 12:09 EDT - 01/22/2017 23:59 EDT Hospital Encounter [facility] Neurophysiology [facility] ([address] [address]) [address] [place] [id number] Kim Grimaldo MD [place] Location [address] [place] [phone] Wolf Hightower MD [address] [place] [address], [place]. [facility] [address] [place] [phone] Seizure ([facility]) ([facility]) Discharge Disposition: Auto Discharge Social History Tobacco [...] Procedure Notes * Wolf Hightower MD - 01/22/2017 5341 EDTProcedure(s): AMBULATORY EEG- TRANSCRIBED ORDER Pre-Procedure Diagnose(s): Seizures (HCC-CMS) Post-Procedure Diagnose(s): Seizures (HCC-CMS) 24 Hour Ambulatory EEG History: This is a 36 y.o. man referred for evaluation of seizure. Current Outpatient Prescriptions Medication Sig Dispense Refill ??? zonisamide (ZONEGRAN) 100 mg capsule Take 1 Cap by mouth daily. 60 Cap 1 No current facility-administered medications for this encounter. . Procedure: A 21 channel ambulatory electroencephalogram/EKG was initiated in the clinical neurophysiology laboratory at the [facility] and the patient then had the ambulatory recording as an outpatient. The 10/20 system of electrode placement was used and both bipolar and referential electrode montages were monitored. The patient was recorded during sleep and awake. There recording was from 1200 on 01/22/17 to 1200 on 01/23/17. Description: During the awake state with the [...] Wolf Hightower MD Professor of Neurological Sciences [facility] documented in this encounter Plan of Treatment Upcoming Encounters Date Type Department Care Team (Late st Contact Info) Description 08/24/2024 14:15 EDT Office Visit [facility] Rheumatology & Immunology - [facility] [address] [place], [place] [phone] Chantel Juan MD [address] [place], [place] [phone] documented as of this encounter Visit Diagnoses Diagnosis Seizure ([facility]) Other convulsions documented in this encounter Care Teams Stamp Pad Maker Relationship Specialty Start Date End Date Daniel Gannon ND [address] [place] [address] [place] [address] PCP - General 12/16/16 07/25/20 documented as of this encounter
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
--- OUTSIDE RECORDS SUMMARY | 2024-06-12 19:12 | XMS_ITS | Encounter Summary ---
Author Organization [facility] Address [address] [place] [address] Care Team Providers Care Event Security Officer Name Role Phone Daniel Gannon ND Primary Care Provider [phone] Reason for Visit * Reason Onset Date Comments Other 06/23/2018 Encounter Details Date Type Department Care Team (Late st Contact Info) Description 06/23/[address] [facility] Cardiology - [address] [place], [place] [phone] Eboni Lombardi RN Other Social History Tobacco Use Types Packs/Day [...] encounter Miscellaneous Notes * Telephone Encounter - Eboni Lombardi RN - 06/23/2018 1500 EST Lana front desk attendant, stated pt pushed FUR and echo with Dr Crawford out to March 2019 and echo order will be outdated. New order entered and I will update Dr Crawford on timing of new appt . documented in this encounter Plan of Treatment Upcoming Encounters Date Type Department Care Team (Late st Contact Info) Description 08/24/2024 14:15 EDT Office Visit [facility] Rheumatology & Immunology - [address] [phone] Chantel Juan MD [address] [place], [place] [address] documented as of this encounter Visit Diagnoses Diagnosis Severe aortic insufficiency- Primary Aortic valve disorders Mitral valve insufficiency and aortic valve insufficiency documented in this encounter Care Teams Event Security Officer Relationship Specialty Start Date End Date Daniel Gannon ND [address] [place] [address] [address] [place] [id number] PCP - General 12/16/16 07/25/20 documented as of this encounter
--- OUTSIDE RECORDS SUMMARY | 2024-06-12 19:12 | XMS_ITS | Encounter Summary ---
Author Organization [facility] Address [address] [place] [address] Care Team Providers Care Anesthesiologist Attending Name Role Phone Daniel Gannon ND Primary Care Provider [phone] Encounter Details Date Type Department Care Team (Latest Contact Info) Description 12/16/2016 13:32 EDT - 12/16/2016 23:59 EDT Hospital Encounter [facility] Neurophysiology - [facility] ([facility]) [address] [place], [place] [id number] Kim Grimaldo MD [place] Location [address] [place] [address] [place] [id number] [address] Seizure (CMS-HCC) ([facility]) Discharge Disposition: Auto Discharge Social History Tobacco [...] Author No 11/26/2016 7:43 Jose Benson RN documented as of this encounter Mental Status * Because of a physical, mental, or emotional condition, do you have serious difficulty concentrating, remembering, or making decisions? (5 years old or older) Answer Entry Date Author No 11/26/2016 7:43 Jose Benson RN documented in this encounter Discharge Diagnoses Diagnosis R56.9 Unspecified convulsions-R56.9[ICD-10-CM] documented in this encounter Medications at Time of Discharge zonisamide (ZONEGRAN) 100 mg capsule Take 1 Cap by mouth daily. 60 Cap 1 11/27/2016 06/04/2020 documented as of this encounter Discharge Disposition Disposition Code Departure Means Destination Auto Discharge Home documented in this encounter Procedure Notes * Miguelangel Sams MD - 12/16/20161944 EDTProcedure(s): EEG Pre-Procedure Diagnose(s): Seizure (HCC-CMS) Post-Procedure Diagnose(s): Seizure (HCC-CMS) [facility] Name: Feliciano Moore Clinical Neurophysiology Laboratory [address] [facility] : [address] [place], [place] Date: 12/16/2016 Electroencephalogram Report Referring Physician: Pao Gupta Study Number: [id number] Clinical Indication: Mr Feliciano Moore is a 36 y.o. man referred for evaluation of seizure. Medications: Current Outpatient Prescriptions Medication Sig Dispense Refill ??? zonisamide (ZONEGRAN) 100 mg capsule Take 1 Cap by mouth daily. 60 Cap 1 No current facility-administered medications for this encounter. Technical Description: Standard EEG: An in-laboratory digital EEG is performed utilizing silver-silver chloride electrodesplaced according to the International 10-20 system of electrode placement. CPZ serves as the recording reference electrode. The following additional electrodes are also placed: ECG electrodes , anterior temporal electrodes The study begins at 1438 until 1513 with a total study duration of 35 minutes. During this study the following states the followingwere recorded: Wake Subject factors: Cooperative The patient and/or caregivers report:8 hours of sleep night before study; Estimated average 8 hoursof sleep Previous EEG Study? Yes Findings: The background was well organized, reactive, and continuous, represented by medium amplitude alpha and theta frequencies. There was no significant asymmetry between the two hemispheres. The posteriordominant rhythm was 10-11 Hz, and it was well regulated in frequency and amplitude. Drowsiness was recorded. Sleep was not attained. Hyperventilation and photic stimulation were performed and did not elicit any abnormal responses. There were no epileptiform discharges nor electrographic seizures noted. Single lead EKG showed regular rhythm. Impression: Normal EEG during wakefulness and drowsy. Miguelangel Sams MD 12/16/2016 19:47 Neurology PGY-4 Cosigned by Rob Swan MD at 12/17/2016 1:11 EDT Associated attestation - Rob Swan MD - 12/17/2016 0111 EDT I have personally reviewed the entire study and I agree with findings as reported by resident/fellow. Rob Swan M.D. Attending, Epilepsy Program [facility] documented in this encounter Plan of Treatment Upcoming Encounters Date Type Department Care Team (Late st Contact Info) Description 08/24/2024 14:15 EDT Office Visit [facility] Rheumatology & Immunology - [address] [phone] Chantel Juan MD [address] [place] [address] documented as of this encounter Visit Diagnoses Diagnosis Seizure ([facility]) Other convulsions documented in this encounter Care Teams Anesthesiologist Attending Relationship Specialty Start Date End Date Daniel Gannon ND [address] [place] [address] [place], [place] [address] PCP - General 12/16/16 07/25/20 documented as of this encounter
--- OUTSIDE RECORDS SUMMARY | 2024-06-12 19:12 | XMS_ITS | Encounter Summary ---
Author Organization [facility] Address [address] [place] [address] Care Team Providers Care Television Repair Teacher Name Role Phone Pao Gupta ND Primary Care Provider [phone] Daniel Gannon ND Primary Care Provider [phone] Reason for Visit * Reason Onset Date Comments Advice Only 11/30/2016 Encounter Details Date Type Department Care Team (Late st Contact Info) Description 11/30/2016 Telephone [facility] Cardiology - [address] [place] [address] Kris Crawford MD Advice Only Social History Tobacco Use Types Packs/Day [...] encounter Miscellaneous Notes * Telephone Encounter - Andie Stokes RN - 12/01/[address] Crawford reviewed hospitalization records, does not think episodes are cardiac related andis happy to see him in clinic to discuss Requested call back to set up apt * Telephone Encounter - Andie Stokes RN - 11/30/2016 1247 EDT Spoke with pt's - Feliciano was in hospital with 2 seizures. Their neighbor, that is an anesthesiologist, came over and told her that he thinks Feliciano may have had a virus and the heart should be looked at as a cause of his symptoms. Feliciano does not like the medication he was put on by the neurologist and is not being seen until January. They would like Dr. Crawford to review all the material from the hospitalization and wants to put a bug in Dr. Crawford's ear that their neighbor thinks this may all be heart related. Pt's or Felicianowould like a call from Dr. Crawford to talk about things. * Telephone Encounter - Eun Palacios - 11/30/2016 1215 EDT Spouse calling and stating that they feel that the symptoms that her has been having possibly could be cardiology related. They are not sure, but would like to look at all different angles. He is not happy with the medication that he is taking, and would like Dr. Crawford's perspective on all of this. documented in this encounter Plan of Treatment Upcoming Encounters Date Type Department Care Team (Late st Contact Info) Description 08/24/2024 14:15 EDT Office Visit [facility] Rheumatology & Immunology - [address] [phone] Chantel Juan MD [address] [place], [place] [address] documented as of this encounter Visit Diagnoses Not on filedocumented in this encounter Care Teams Television Repair Teacher Relationship Specialty Start Date End Date Pao Gupta ND PCP - General 03/06/15 12/15/16 Daniel Gannon ND [address] [place] [address] [facility] [place] [address] PCP - General 12/16/16 07/25/20 documented as of this encounter
--- OUTSIDE RECORDS SUMMARY | 2024-06-12 19:12 | XMS_ITS | Encounter Summary ---
Author Organization [facility] Address [address] [place] [address] Care Team Providers Care [employer] Ass[employer] Craft Crewman Name Role Phone Pao Gupta ND Primary Care Provider [phone] Daniel Gannon ND Primary Care Provider [phone] Encounter Details Date Type Department Care Team (Late st Contact Info) Description 12/03/2016 Phlebotomy Only [address] [address] Dials Supervisor, Outpatient Social History Tobacco Use Types Packs/Day Years [...] Author No 11/26/2016 7:43 EDJose Azar RN documented as of this encounter Mental Status * Because of a physical, mental, or emotional condition, do you have serious difficulty concentrating, remembering, or making decisions? (5 years old or older) Answer Entry Date Author No 11/26/2016 7:43 Jose Benson RN documented in this encounter Plan of Treatment Upcoming Encounters Date Type Department Care Team (Late st Contact Info) Description 08/24/2024 14:15 EDT Office Visit [facility] Rheumatology & Immunology - [address] [phone] Chantel Juan MD [address] [place] [address] documented as of this encounter Visit Diagnoses Not on filedocumented in this encounter Care Teams [employer] Craft Crewman Relationship Specialty Start Date End Date Pao Gupta ND PCP - General 03/06/15 12/15/16 Daniel Gannon ND [address] [place] [address] [place] [address] PCP - General 12/16/16 07/25/20 documented as of this encounter
--- OUTSIDE RECORDS SUMMARY | 2024-06-12 19:12 | XMS_ITS | Encounter Summary ---
Author Organization [facility] Address [address] [place] [address] Care Team Providers Care Music Minister Name Role Phone Pao Gupta DARSHANA Primary Care Provider [phone] Encounter Details Date Type Department Care Team (Latest Contact Info) Description 12/03/2016 8:23 EDT - 12/03/2016 23:59 EDT Hospital Encounter [address] [address] Vaishnavi Minaya ND [address] [place] [address] Discharge Disposition: Auto Discharge Social History Tobacco [...] documented in this encounter Discharge Diagnoses Diagnosis Z00.00 Encounter for general adult medical examination without abnormal findings-Z00.00[ICD-10-CM] Z13.29 Encounter for screening for other suspected endocrine disorder-Z13.29[ICD-10-CM] Z13.1 Encounter for screening for diabetes mellitus-Z13.1[ICD-10-CM] Z13.220 Encounter for screening for lipoid disorders-Z13.220[ICD-10-CM] Z13.0 Encounter for screening for diseases of the blood and blood-forming organs and certain disorders involving the immune mechanism-Z13.0[ICD-10-CM] documented in this encounter Medications at Time of Discharge zonisamide (ZONEGRAN) 100 mg capsule Take 1 Cap by mouth daily. 60 Cap 1 11/27/2016 06/04/2020 documented as of this encounter Discharge Disposition Disposition Code Departure Means Destination Auto Discharge Home documented in this encounter Plan of Treatment Upcoming Encounters Date Type Department Care Team (Late st Contact Info) Description 08/24/2024 14:15 EDT Office Visit [facility] Rheumatology & Immunology [address] [address] Chantel Juan MD [address] [place] [address] documented as of this encounter Procedures Procedure Name Priority Date/Time Associated Diagnosis Comments LYME AB Routine 12/03/2016 8:35 EDT COMPLETE BLOOD COUNT AND DIFFERENTIAL Routine 12/03/2016 8:35 EDT ANTI NUCLEAR AB (MARISOL), IFA Routine 12/03/2016 8:35 EDT TSH Routine 12/03/2016 8:35 EDT [facility]AD, [facility] Routine 12/03/2016 8:35 EDT LIPID PROFILE (INCLUDES CHOLESTEROL, TRIGLYCERIDES, HDL, LDL) Routine 12/03/2016 8:35 EDT COMPREHENSIVE METABOLIC PANEL (CMP) Routine 12/03/2016 8:35 EDT documented in this encounter Results * ANTI NUCLEAR ANTIBODY (12/03/2016 8:35 EDT) MARISOL Interpretation Negative Negative 2016 13:57 EDT [facility] Comment: No titer performed, MARISOL screen is negative. Results were obtained with the INOVA NOVA Lite HEp-2 MARISOL kit by indirect immunofluorescence. BLOOD SPECIMEN / Unknown 12/03/2016 8:35 EDT 12/03/2016 10:17 EDT Vaishnavi Minaya ND IMMUNOLOGY AND SEROLOGY ORDERA BLES Final Result [facility] [address] [place] [address] * LYME AB (12/03/2016 8:35 EDT) Lyme AB Negative 12/03/2016 15:43 EDT [facility] Comment:Reference Range: Neg ative BLOOD SPECIMEN / Unknown 12/03/2016 8:35 EDT 12/03/2016 10:17 EDT Vaishnavi Minaya ND IMMUNOLOGY AND SEROLOGY ORDERA BLES Final Result Performing Organization Address [facility]/ZIP Co de Phone Number [facility] [address] [place] [address] * LEAD, [facility] (12/03/2016 8:35 EDT) Lead <2 0 - 4 ug/dl 12/04/2016 12:14 EDT [facility] Comment: Testing performed using Graphite Furnace Atomic Absorption Spectroscopy. BLOOD SPECIMEN / Unknown 12/03/2016 8:35 EDT 12/03/2016 10:17 EDT Vaishnavi Minaya ND CHEMISTRY & BLOOD GAS ORDERABL ES Final Result Performing Organization Address [facility] Co de Phone Number [facility] [address] [place] [address] * TSH (12/03/2016 8:35 EDT) TSH 1.27 0.55 - 4.78 uIU/ml 12/03/2016 11:25 EDT [facility] BLOOD SPECIMEN / Unknown 12/03/2016 8:35 EDT 12/03/2016 10:17 EDT Vaishnavi Minaya ND CHEMISTRY & BLOOD GAS ORDERABL ES Final Result Performing Organization Address [facility] Co de Phone Number [facility] [address] [place] [address] * LIPID PROFILE (INCLUDES CHOLESTEROL, TRIGLYCERIDES, HDL, LDL) (12/03/2016 8:35 EDT) Cholesterol 174 mg/dl 12/03/2016 10:56 EDT [facility] Comment: Desirable:<200 Borderline High:200-239 High:>lx=313 Triglycerides 48 mg/dl 12/03/2016 10:56 EDT [facility] Comment: Normal:<150 Borderline High:150-199 High:200-499 Very High:>om=033 HDL 62 mg/dl 12/03/2016 10:56 [facility] Comment: Low:<40 Normal:40-60 Desirable: >60 LDL, Calculated 102 mg/dl 7 10:56 [facility] Comment: Optimal:<100 Near Optimal:100-129 Borderline High:130-159 High:160-189 Very High:>nd=632 Chol/HDL Ratio 2.8 12/03/2016 10:56 [facility] Fasting? YES 12/03/2016 8:35 [facility] Non HDL Cholesterol 112 mg/dl 12/03/2016 10:56 [facility] Comment: Desirable:<130 Borderline:130-159 High: 160-189 Very High: >hg=727 BLOOD SPECIMEN / Unknown 12/03/2016 8:35 EDT 12/03/2016 10:17 EDT Vaishnavi Minaya ND CHEMISTRY & BLOOD GAS ORDERABL ES Final Result [facility] [address] [place] [address] * HEMAGRAM AND DIFFERENTIAL (12/03/2016 8:35 EDT) WBC 4.35 4.0 - 10.4 K/cmm 12/03/2016 12:38 [facility] RBC 4.60 4.36 - 5.78 M/cmm 12/03/2016 12:38 [facility] Hemoglobin 14.7 13.8 - 17.3 gm/dl 12/03/2016 12:38 [facility] HCT 42.1 39.5 - 50.2 % 12/03/2016 12:38 [facility] MCV 92 81 - 95 fl 12/03/2016 12:38 [facility] MCH 32.0 27.6 - 33.0 pg 12/03/2016 12:38 [facility] MCHC 34.9 32.8 - 36.4 gm/dl 12/03/2016 12:38 [facility] RDW-CV 12.4 <14.2 % 12/03/2016 12:38 [facility] RDW-SD 41.4 <46.0 fl 12/03/2016 12:38 [facility] PLT 213 141 - 377 K/cmm 12/03/2016 12:38 [facility] MPV 10.4 9.5 - 12.7 fl 12/03/2016 12:38 [facility] % Neutrophils 55.5 % 12/03/2016 12:38 [facility] % Lymphocytes 30.8 % 12/03/2016 12:38 [facility] % Monocytes 9.2 % 12/03/2016 12:38 [facility] % Eosinophils 3.2 % 12/03/2016 12:38 [facility] % Basophils 1.1 % 12/03/2016 12:38 [facility] % Immature Grans 0.2 % 12/03/2016 12:38 [facility] ABS Neutrophils 2.41 2.20 - 8.85 K/cmm 12/03/2016 12:38 [facility] ABS Lymphs 1.34 1.09 - 3.30 K/cmm 12/03/2016 12:38 [facility] ABS Monocytes 0.40 0.1 - 0.8 K/cmm 12/03/2016 12:38 [facility] ABS Eosinophils 0.14 0.03 - 0.61 K/cmm 12/03/2016 12:38 [facility] ABS Basophils 0.05 0.01 - 0.11 K/cmm 12/03/2016 12:38 [facility] ABS Immature Grans 0.01 0 - 0.06 K/cm 12/03/2016 12:38 [facility] Type of Diff: Automated 12/03/2016 12:38 [facility] BLOOD SPECIMEN / Unknown 12/03/2016 8:35 EDT 12/03/2016 10:17 EDT Vaishnavi Minaya ND PACKAGES & DNA PROBE ORDERABLE S Final Result [facility] [address] [place] [address] * (ABNORMAL) COMPREHENSIVE METABOLIC PANEL (CMP) (12/03/2016 8:35 EDT) Potassium 5.5(H) 3.5 - 5.0 mEq/L 12/03/2016 10:56 [facility] Sodium 141 136 - 145 mEq/L 12/03/2016 10:56 [facility] Chloride 103 96 - 110 mEq/L 12/03/2016 10:56 [facility] CO2 26 22 - 32 mEq/L 12/03/2016 10:56 [facility] Total Alkaline Phosphatase 57 38 - 126 U/L 12/03/2016 10:56 [facility] Bilirubin, Total 0.6 <1.4 mg/dl 12/04/19 17 10:56 [facility] AST 38 15 - 46 U/L 12/03/2016 10:56 [facility] ALT 48 21 - 72 U/L 12/03/2016 10:56 [facility] Albumin 4.1 3.4 - 4.9 g/dl 12/03/2016 10:56 [facility] Total Protein 7.1 6.3 - 8.2 g/dl 12/03/2016 10:56 [facility] Creatinine 1.08 0.66 - 1.25 mg/dl 12/03/2016 10:56 [facility] GFR, Calculated 88 >60 ml/min/1.7 3m2 12/03/2016 10:56 [facility] Comment: eGFR calculated using CKD-EPI equation for non Americans. Multiply eGFR by 1.16 for Americans. BUN 17 10 - 26 mg/dl 12/03/2016 10:56 [facility] Calcium 9.4 8.5 - 10.5 mg/dl 12/03/2016 10:56 [facility] Calculated Calcium 9.3 8.5 - 10.5 mg/dl 12/03/2016 10:56 EDT [facility] Glucose, Serum 99 70 - 100 mg/dl 12/03/2016 10:56 EDT [facility] Fasting? YES 12/03/2016 8:35 EDT [facility] BLOOD SPECIMEN / Unknown 12/03/2016 8:35 EDT 12/03/2016 10:17 EDT us Vaishnavi Minaya ND CHEMISTRY & BLOOD GAS ORDERABL ES Final Result [facility] [address] [place] [address] documented in this encounter Visit Diagnoses Not on filedocumented in this encounter Care Teams Music Minister Relationship Specialty Start Date End Date Pao Gupta ND PCP - General 03/06/15 12/15/16 documented as of this encounter
--- OUTSIDE RECORDS SUMMARY | 2024-06-12 19:12 | XMS_ITS | Encounter Summary ---
Author Organization [facility] Address [address] [place] [address] Care Team Providers Care Cloth Calender Name Role Phone Daniel Gannon ND Primary Care Provider Reason for Referral * Cardiology (Routine) - Closed Specialty Diagnoses / Procedures Referred By See hickman Referred To Contact Diagnoses Nonrheumatic aortic valve insufficiency Procedures ECHOCARDIOGRAM Kris Crawford MD Referral ID Status Reason Start Date Expiration Date Visits Re quested Visits Authorized [id number] Closed 05/18/2017 1 1 Reason for Visit * Reason Comments Heart Disease congenital heart dis ease; pt had two seizures in November to be aware of Encounter Details Date Type Department Care Team (Latest Contact Info) Description 05/18/2017 8:20 EST Office Visit [facility] Cardiology - [address] [place], [place] [phone] Kris Crawford MD Nonrheumatic aortic valve insufficiency [...] Sign Reading Time Taken Comments Blood Pressure 124/72 05/18/2017 0807 EST Pulse 68 05/18/2017 0807 EST Temperature - - Respiratory Rate - - Oxygen Saturation 98% 05/18/2017 0807 EST Inhaled Oxygen Concentration - - Weight 93.4 kg (206 lb) 05/18/2017 0807 EST Height 198.1 cm (6' 6) 05/18/2017 0807 EST Body Mass Index 23.81 05/18/2017 0807 EST documented in this encounter [...] this encounter Progress Notes * Kris Crawford MD - 05/18/2017 0820 EST This office note has been dictated. * Kris Crawford MD - 05/18/2017 0000 EST [facility] CARDIOLOGY PROGRESS / FOLLOWUP NOTE - 05/18/2017 Pao Garcia [address], [place] [address] Problem List: 1. 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 2. Mild mitral regurgitation. 3. No aortopathy. Dear Pao, I had the pleasure of seeing Feliciano accompanied by his partner in 1-year cardiovascular followup. He remains quite active at his work in [employer] with really no cardiovascular complaints. No significant dyspnea. I reviewed his echo from last year and his repeat echo this year was unchanged showingsevere aortic insufficiency, mildly dilated left ventricle, ejection fraction 60% to 65%. I reviewed the [address] Rodriguez of [facility], [place], [place]. He, as you know, did have an episode of seizures, which has not recurred. He thinks it was probablydue to a combination of factors, including sleep deprivation and some alcohol. Review of Systems: As noted above. No chest pain, PND or orthopnea. Current Medications: Zonegran 100 mg p.o. daily. On physical exam, he is a pleasant, healthy tall, thin, white male in no cardiopulmonary distress. Blood pressure is 124/72, heart rate of 68; 198 pounds, BMI is 24. Skin is warm and dry. Neurologic:Grossly nonfocal. Musculoskeletal: Gait is steady. Psychiatric: Oriented x3. Respiratory: Lungs areclear. Cardiovascular: Normal S1, normal S2. There is a faint 1/6 ejection murmur. There is a 2/6 moderate intensity decrescendo diastolic murmur heard at the left sternal border best. No carotid bruits, no jugular venous distention. Distal pulses are +2 and equal. Gastrointestinal: Soft, nontender, no pulsatile mass. Lower extremities show no edema. In summary, Henri continues to do well with severe asymptomatic aortic insufficiency with just mild LV dilation, which is unchanged compared to echo 1 year ago and 2 years ago. I congratulated the patient on remaining active. I plan on seeing him again in approximately 12 to 13 months with a repeat echocardiogram. Sincerely, Kris Crawford MD 08 57 AM - Kris Crawford MD cn Dictation ID: [id number] cc: Pao Gupta ND, [facility] [address], [address], [place] [address] documented in this encounter Plan of Treatment Upcoming Encounters Date Type Department Care Team (Late st Contact Info) Description 08/24/2024 14:15 EDT Office Visit [facility] Rheumatology & Immunology - [facility] [address], [place] [phone] Chantel Juan MD [address] [place], [place] [phone] documented as of this encounter Procedures Procedure Name Priority Date/Time Associated Diagnosis Comments ECHOCARDIOGRAM Routine 04/04/2019 8:16 EDT Nonrheumatic aortic valve insufficiency documented in this encounter Results * ECHOCARDIOGRAM (04/04/2019 8:16 EDT) Anatomical Region Laterality Modality Ultrasound 04/04/2019 8:16 EDT Narrative 04/04/2019 8:29 EDT *Interpreting Group:* *[facility]* [address] [place] [address] Date of study: 04/04/2019 Transthoracic Echocardiography M-mode, complete 2D, 3D, complete spectral Doppler, and color Doppler *STUDY CONCLUSIONS* Impressions: ??Compared to the prior study, there has been no significant interval change. Summary: 1. Left ventricle: The cavity size was mildly dilated. Wall thickness ?? was normal. Systolic function was normal. The estimated ejection ?? fraction was 60-65%. Wall motion was normal; there were no regional ?? wall motion abnormalities. 2. Aortic valve: Trileaflet but appears congenitally abnormal; mildly ?? thickened leaflets. There was severe regurgitation. 3. Mitral valve: Mild thickening. There was mild regurgitation. 4. Right ventricle: The cavity size was normal. Wall thickness was ?? normal. Systolic function was normal. *PATIENT PRESENTATION* Height: ? 198.1cm (78in ) S/D Pressure: 129 / 63 Weight: ? 96.6kg (212.6lb ) BSA: ?2.31m^2 Test start time: ??07:28 AM. Test stop time: ??08:04 AM. ATTENDING ?Kris Crawford ORDERING ? Kris Crawford PERFORMING ?? [facility], Op REFERRING ?Daniel Gannon Nd [employer] WORKER FRUIT ??Pernell, Agustín *PROCEDURE DATA* Procedure information: ??The patient was identified by two identifiers. This study was interpreted by [facility]. Pertinent images and digital data are archived for permanent storage and are available for subsequent review. Comparison was made to the study of 03/22/2012. ??Study status: ??Routine. Transthoracic echocardiography. ??M-mode, complete 2D, 3D, complete spectral Doppler, and color Doppler. A Transthoracic Echocardiogram was performed. Scanning was performed from the parasternal, apical, subcostal, and suprasternal notch acoustic windows. Images were obtained using an [employer] 12 cardiac ultrasound machine. Image quality was adequate. ??Study completion: ??The patient tolerated the procedure well. *INDICATIONS AND HISTORY* Indications: ?? Aortic Insufficiency (I35.1). *CARDIAC ANATOMY* Left ventricle: ??The cavity size was mildly dilated. Wall thickness was normal. Systolic function was normal. The estimated ejection fraction was 60-65%. Wall motion was normal; there were no regional wall motion abnormalities. Diastolic parameters were normal. Aortic valve: ??Trileaflet but appears congenitally abnormal; mildly thickened leaflets. Mobility was not restricted. ??Doppler: Transvalvular velocity was within the normal range. There was no stenosis. There was severe regurgitation. Aorta: ??Aortic root: The aortic root was normal in size. Mitral valve: ?? Mild thickening. Mobility was not restricted. ??Doppler: Transvalvular velocity was within the normal range. There was no evidence for stenosis. There was mild regurgitation. ?Peak gradient (D): 6.6mm Hg. Left atrium: ??The atrium was normal in size. Right ventricle: ??The cavity size was normal. Wall thickness was normal. Systolic function was normal. Pulmonic valve: ?Doppler: ??Transvalvular velocity was within the normal range. There was no evidence for stenosis. There was trivial regurgitation. Tricuspid valve: ?? Structurally normal valve. ?Doppler: ??Transvalvular velocity was within the normal range. There was no evidence for stenosis. There was no regurgitation. Pulmonary artery: ?? Pulmonary systolic pressure was within the normal range. Main pulmonary artery: The artery was of normal size. Right atrium: ??The atrium was normal in size. Pericardium: ??There was no pericardial effusion. Systemic veins: Inferior vena cava: The vessel was normal in size. Measurements Left ventricle ?Value ?05/18/2017 Reference LV ID, ED, PLAX ? 5.8 ?? cm ? 5.8 ?3.5 - 6.0 LV ID, ES, PLAX ? 3.6 ?? cm ? 4.2 ?2.1 - 4.0 LV PW thickness, ED, PLAX ? 1.0 ?? cm ? 0.7 ?--------- LV e', lateral ?0.124 m/sec ??0.113 ?--------- LV E/e', lateral ?10 ? 10 ? --------- LV e', medial ? 0.078 m/sec ??0.079 ?--------- LV E/e', medial ? 16 ? 14 ? --------- LV e', average ?0.101 m/sec ??0.096 ?--------- LV E/e', average ?13 ? 12 ? --------- Ventricular septum ?Value ?05/18/2017 Reference IVS thickness, ED, PLAX ? 1.0 ?? cm ? 0.9 ?--------- LVOT ?Value ?05/18/2017 Reference LVOT ID, S ?2.0 ?? cm ? --------- LVOT area ? 3.1 ?? cm^2 ?? --------- Aortic valve ?Value ?05/18/2017 Reference Aortic regurg peak velocity ? 5.41 ??m/sec ??4.93 ? --------- Aortic regurg velocity, ED ?5.58 ??m/sec ??4.7 ?--------- Aortic regurg deceleration ?205 ?? cm/s^2 248 ?--------- Aortic regurg pressure ?775 ?? ms ? 589 ?--------- half-time Aortic regurg peak gradient ? 117.1 mm Hg ??97.2 ? --------- Aortic regurg gradient, ED ?124.5 mm Hg ??88.4 ? --------- Aorta ? Value ?05/18/2017 Reference Aortic root ID ?3.2 ?? cm ? 3.5 ?--------- Ascending aorta ID, A-P ? 3.1 ?? cm ? 2.8 ?--------- Ascending aorta ID, A-P, S ?3.1 ?? cm ? 2.8 ?--------- Left atrium ? Value ?05/18/2017 Reference LA ID, A-P, ES ?3.7 ?? cm ? 3.0 ?--------- LA ID/bsa, A-P ?1.6 ?? cm/m^2 1.3 ?<=2.2 LA/aortic root ratio ?1.16 ? 0.86 ? --------- Mitral valve ?Value ?05/18/2017 Reference Mitral E-wave peak velocity ? 1.28 ??m/sec ??1.12 ? --------- Mitral A-wave peak velocity ? 0.85 ??m/sec ??1 ?--------- Mitral deceleration time ?(H) ? 327 ?? ms ? 306 ?150 - 230 Mitral peak gradient, D ? 6.6 ?? mm Hg ??5 ?--------- Mitral E/A ratio, peak ?1.5 ?1.1 ?--------- Legend: (L) ??and ??(H) ??matthew values outside specified reference range. I have personally reviewed the images and have reviewed and edited the reported findings. Electronically signed by Kris Crawford 04/04/2019 08:29 Procedure Note Kris Crawford MD, - 04/04/2019 *Interpreting Group:* *[facility]* [address] [place] [address] Date of study: 04/04/2019 Transthoracic Echocardiography M-mode, complete 2D, 3D, complete spectral Doppler, and color Doppler *STUDY CONCLUSIONS* Impressions: Compared to the prior study, there has been no significant interval change. Summary: 1. Left ventricle: The cavity size was mildly dilated. Wall thickness was normal. Systolic function was normal. The estimated ejection fraction was 60-65%. Wall motion was normal; there were no regional wall motion abnormalities. 2. Aortic valve: Trileaflet but appears congenitally abnormal; mildly thickened leaflets. There was severe regurgitation. 3. Mitral valve: Mild thickening. There was mild regurgitation. 4. Right ventricle: The cavity size was normal. Wall thickness was normal. Systolic function was normal. *PATIENT PRESENTATION* Height: 198.1cm (78in ) S/D Pressure: 129 / 63 Weight: 96.6kg (212.6lb ) BSA: 2.31m^2 Test start time: 07:28 AM. Test stop time: 08:04 AM. ATTENDING Kris Crawford ORDERING Kris Crawford PERFORMING [facility], Op REFERRING Daniel Gannon Nd [employer] WORK[employer] Agustín Gimenez *PROCEDURE DATA* Procedure information: The patient was identified by two identifiers. This study was interpreted by [facility]. Pertinent images and digital data are archived for permanent storage and are available for subsequent review. Comparison was made to the study of 03/22/2012. Study status: Routine. Transthoracic echocardiography. M-mode, complete 2D, 3D, complete spectral Doppler, and color Doppler. A Transthoracic Echocardiogram was performed. Scanning was performed from the parasternal, apical, subcostal, and suprasternal notch acoustic windows. Images were obtained using an [employer] 12 cardiac ultrasound machine. Image quality was adequate. Study completion: The patient tolerated the procedure well. *INDICATIONS AND HISTORY* Indications: Aortic Insufficiency (I35.1). *CARDIAC ANATOMY* Left ventricle: The cavity size was mildly dilated. Wall thickness was normal. Systolic function was normal. The estimated ejection fraction was 60-65%. Wall motion was normal; there were no regional wall motion abnormalities. Diastolic parameters were normal. Aortic valve: Trileaflet but appears congenitally abnormal; mildly thickened leaflets. Mobility was not restricted. Doppler: Transvalvular velocity was within the normal range. There was no stenosis. There was severe regurgitation. Aorta: Aortic root: The aortic root was normal in size. Mitral valve: Mild thickening. Mobility was not restricted. Doppler: Transvalvular velocity was within the normal range. There was no evidence for stenosis. There was mild regurgitation. Peak gradient (D): 6.6mm Hg. Left atrium: The atrium was normal in size. Right ventricle: The cavity size was normal. Wall thickness was normal. Systolic function was normal. Pulmonic valve: Doppler: Transvalvular velocity was within the normal range. There was no evidence for stenosis. There was trivial regurgitation. Tricuspid valve: Structurally normal valve. Doppler: Transvalvular velocity was within the normal range. There was no evidence for stenosis. There was no regurgitation. Pulmonary artery: Pulmonary systolic pressure was within the normal range. Main pulmonary artery: The artery was of normal size. Right atrium: The atrium was normal in size. Pericardium: There was no pericardial effusion. Systemic veins: Inferior vena cava: The vessel was normal in size. Measurements Left ventricle Value 05/18/2017 Reference LV ID, ED, PLAX 5.8 cm 5.8 3.5 - 6.0 LV ID, ES, PLAX 3.6 cm 4.2 2.1 - 4.0 LV PW thickness, ED, PLAX 1.0 cm 0.7 --------- LV e', lateral 0.124 m/sec 0.113 --------- LV E/e', lateral 10 10 --------- LV e', medial 0.078 m/sec 0.079 --------- LV E/e', medial 16 14 --------- LV e', average 0.101 m/sec 0.096 --------- LV E/e', average 13 12 --------- Ventricular septum Value 05/18/2017 Reference IVS thickness, ED, PLAX 1.0 cm 0.9 --------- LVOT Value 05/18/2017 Reference LVOT ID, S 2.0 cm --------- LVOT area 3.1 cm^2 --------- Aortic valve Value 05/18/2017 Reference Aortic regurg peak velocity 5.41 m/sec 4.93 --------- Aortic regurg velocity, ED 5.58 m/sec 4.7 --------- Aortic regurg deceleration 205 cm/s^2 248 --------- Aortic regurg pressure 775 ms 589 --------- half-time Aortic regurg peak gradient 117.1 mm Hg 97.2 --------- Aortic regurg gradient, ED 124.5 mm Hg 88.4 --------- Aorta Value 05/18/2017 Reference Aortic root ID 3.2 cm 3.5 --------- Ascending aorta ID, A-P 3.1 cm 2.8 --------- Ascending aorta ID, A-P, S 3.1 cm 2.8 --------- Left atrium Value 05/18/2017 Reference LA ID, A-P, ES 3.7 cm 3.0 --------- LA ID/bsa, A-P 1.6 cm/m^2 1.3 <=2.2 LA/aortic root ratio 1.16 0.86 --------- Mitral valve Value 05/18/2017 Reference Mitral E-wave peak velocity 1.28 m/sec 1.12 --------- Mitral A-wave peak velocity 0.85 m/sec 1 --------- Mitral deceleration time (H) 327 ms 306 150 - 230 Mitral peak gradient, D 6.6 mm Hg 5 --------- Mitral E/A ratio, peak 1.5 1.1 --------- Legend: (L) and (H) matthew values outside specified reference range. I have personally reviewed the images and have reviewed and edited the reported findings. Electronically signed by Kris Crawford 04/04/2019 08:29 us Kris Crawford MD CARDIAC ECHO ORDERABLES Fi nal Result documented in this encounter Visit Diagnoses Diagnosis Nonrheumatic aortic valve insufficiency- Primary Aortic valve disorders documented in this encounter Care Teams Cloth Calender Relationship Specialty Start Date End Date Daniel Gannon ND [address] [place] [address] [place] [address] PCP - General 12/16/16 07/25/20 documented as of this encounter
--- OUTSIDE RECORDS SUMMARY | 2024-06-12 19:12 | XMS_ITS | Encounter Summary ---
Author Organization [facility] Address [address] [place] [address] Care Team Providers Care Bilingual School Psychologist Name Role Phone Daniel Gannon DARSHANA Primary Care Provider [phone] Kenny Salazar MD Primary Care Provider [phone] Reason for Visit * Reason Onset Date Comments Appointment Related 05/27/2020 Encounter Details Date Type Department Care Team (Late st Contact Info) Description 05/27/[address] [facility] Neurophysiology - [facility] ([place] [address]) [address] [place] [address] Kenny Salazar MD [address] [place] [phone] Appointment Related Social History Tobacco Use Types [...] Telephone Encounter - Kenny Salazar MD - 05/27/2020 1653 EST I will see him. * Telephone Encounter - Rob Swan MD - 05/27/2020 1617 EST Noted. I am happy to see the patient, and if he agrees, he should be scheduled as a new patient forme as well, since he was not seen for over 3 years now. The patient has been very resistant to antiseizure medication therapy, which was somewhat understandable in context of his normal extensive work up, but he had a recurrent seizure about 3 months after the last visit with me. The patient did insist on me providing paperwork for driving, although hisPCP has reportedly weaned off his zonisamide. I feel this might be a source of frustration for the patient. It seems that the patient continues to have seizures. He should be seen either here or at another institution. Thank you. * Telephone Encounter - Sam Nolen - 05/27/2020 6248 EST Advised PT that Dr. Salazar highly recommends he tries once more with Dr. Swan. PT says he would seek care at another hospital if that were the case, he did not give any details as to why it was not a good fit. I scheduled him [address] Salazar and warned I may reach out to cancel depending on Dr. Salazar'sapproval. Please advise if you would like me to change anything; NPV - Last saw Sosa 2016 [email or web address] Meeting ID: [id number] Password: [id number] documented in this encounter Plan of Treatment Upcoming Encounters Date Type Department Care Team (Late st Contact Info) Description 08/24/2024 14:[address] [facility] Rheumatology & Immunology - [facility] [address] [place] [address] Chantel Juan MD [address] [place], [place] [phone] documented as of this encounter Visit Diagnoses Not on filedocumented in this encounter Care Teams Bilingual School Psychologist Relationship Specialty Start Date End Date Daniel Gannon ND [address] [place] [address] [place] [address] PCP - General 12/16/16 07/25/20 Kenny Salazar MD [address] [place] [phone] PCP - General Neurology 07/26/20 05/15/24 documented as of this encounter
--- OUTSIDE RECORDS SUMMARY | 2024-06-12 19:12 | XMS_ITS | Encounter Summary ---
Author Organization [facility] Address [address] [place] [address] Care Team Providers Care Carriage Operator Name Role Phone Daniel Gannon ND Primary Care Provider [phone] Encounter Details Date Type Department Care Team (Latest Contact Info) Description 02/02/2017 18:40 EDT - 02/02/2017 23:59 EDT Hospital Encounter [facility] [address] [place] [address] [place] [address] [phone] Discharge Disposition: Auto Discharge Social History Tobacco [...] Info) Description 08/24/2024 14:15 EDT Office Visit [facility] Rheumatology & Immunology - [facility] [address], [place] [address] Chantel Juan MD [address] [place], [place] [address] documented as of this encounter Visit Diagnoses Not on filedocumented in this encounter Care Teams Carriage Operator Relationship Specialty Start Date End Date Daniel Gannon ND [address] [place] [address] [place] [address] PCP - General 12/16/16 07/25/20 documented as of this encounter
--- OUTSIDE RECORDS SUMMARY | 2024-06-12 19:12 | XMS_ITS | Encounter Summary ---
Author Organization [facility] Address [address] [place] [address] Care Team Providers Care Phone Representative Name Role Phone Daniel Gannon ND Primary Care Provider [phone] Kenny Salazar MD Primary Care Provider + [phone] Daniel Gannon ND Primary Care Provider [phone] Encounter Details Date Type Department Care Team (Late st Contact Info) Description 01/03/[address] [facility] Pathology & Laboratory Medicine - [facility] [address] [place] [address] Daniel Gannon ND [address] [place], [place] [address] Abnormal weight loss; Encounter for screening for malignant neoplasm of prostate; Nutritional deficiency, unspecified; Epilepsy, unspecified, not intractable, without status epilepticus (HCC-CMS); Encounter for screening for diseases of the blood and blood-forming organs and certain disorders involving the immune mechanism Social History Tobacco Use Types Packs/Day Years [...] Description 08/24/2024 14:[address] [facility] Rheumatology & Immunology - [facility] [address] [place] [address] Chantel Juan MD [address] [place], [place] [id number] documented as of this encounter Procedures Procedure Name Priority Date/Time Associated Diagnosis Comments COMPLETE BLOOD COUNT Today 01/03/2020 18:39 EDT Abnormal weight loss [ICD-10-CM] Epilepsy, unspecified, not intractable, without status epilepticus ([facility]) [ICD-10-CM] Encounter for screening for malignant neoplasm of prostate [ICD-10-CM] Encounter for screening for diseases of the blood and blood-forming organs and certain disorders involving the immune mechanism [ICD-10-CM] Nutritional deficiency, unspecified [ICD-10-CM] TSH Today 01/03/2020 18:39 EDT Abnormal weight loss [ICD-10-CM] Epilepsy, unspecified, not intractable, without status epilepticus (HCC-CMS) [ICD-10-CM] Encounter for screening for malignant neoplasm of prostate [ICD-10-CM] Encounter for screening for diseases of the blood and blood-forming organs and certain disorders involving the immune mechanism [ICD-10-CM] Nutritional deficiency, unspecified [ICD-10-CM] PSA TOTAL, DIAGNOSTIC Today 01/03/2020 18:39 EDT Abnormal weight loss [ICD-10-CM] Epilepsy, unspecified, not intractable, without status epilepticus (HCC-CMS) [ICD-10-CM] Encounter for screening for malignant neoplasm of prostate [ICD-10-CM] Encounter for screening for diseases of the blood and blood-forming organs and certain disorders involving the immune mechanism [ICD-10-CM] Nutritional deficiency, unspecified [ICD-10-CM] HEMOGLOBIN A1C Today 01/03/2020 18:39 EDT Abnormal weight loss [ICD-10-CM] Epilepsy, unspecified, not intractable, without status epilepticus (HCC-CMS) [ICD-10-CM] Encounter for screening for malignant neoplasm of prostate [ICD-10-CM] Encounter for screening for diseases of the blood and blood-forming organs and certain disorders involving the immune mechanism [ICD-10-CM] Nutritional deficiency, unspecified [ICD-10-CM] FOLATE Today 01/03/2020 18:39 EDT Abnormal weight loss [ICD-10-CM] Epilepsy, unspecified, not intractable, without status epilepticus (HCC-CMS) [ICD-10-CM] Encounter for screening for malignant neoplasm of prostate [ICD-10-CM] Encounter for screening for diseases of the blood and blood-forming organs and certain disorders involving the immune mechanism [ICD-10-CM] Nutritional deficiency, unspecified [ICD-10-CM] COMPREHENSIVE METABOLIC PANEL (CMP) Today 01/03/2020 18:39 EDT Abnormal weight loss [ICD-10-CM] Epilepsy, unspecified, not intractable, without status epilepticus (HCC-CMS) [ICD-10-CM] Encounter for screening for malignant neoplasm of prostate [ICD-10-CM] Encounter for screening for diseases of the blood and blood-forming organs and certain disorders involving the immune mechanism [ICD-10-CM] Nutritional deficiency, unspecified [ICD-10-CM] documented in this encounter Results * PSA TOTAL, DIAGNOSTIC (01/03/2020 18:39 EDT) PSA 0.3 0.0 - 2.5 ng/mL 01/04/2020 8:46 EDT [facility] Blood VENOUS BLOOD / Unknown 01/03/2020 18:39 EDT 01/03/2020 19:57 EDT Narrative [facility] - 01/04/2020 8:46 EDT NOTE: Serum PSA concentration should not be interpreted as absolute evidence for the presence or absence of malignant disease. Assayed on Siemens ADVIA Centaur XPT using chemiluminescent technology.??Values obtained by using different assay methods cannot be used interchangeably. Daniel Gannon ND CHEMISTRY & BLOOD GAS ORDER TERE Final Result [facility] [address] [place] [address] * (ABNORMAL) COMPREHENSIVE METABOLIC PANEL (CMP) (01/03/2020 18:39 EDT) Sodium 138 136 - 145 mEq/L 01/03/2020 20:29 EDT [facility] Potassium 4.3 3.5 - 5.0 mEq/L 01/03/2020 20:29 [facility] Chloride 104 96 - 110 mEq/L 01/03/2020 20:29 EDT [facility] CO2 Total 27 22 - 32 mEq/L 01/03/2020 20:29 T [facility] Glucose 99 70 - 100 mg/dL 01/03/2020 20:29 [facility] BUN 22 10 - 26 mg/dL 01/03/2020 20:29 [facility] Creatinine 0.72 0.66 - 1.25 mg/dL 01/03/2020 20:29 [facility] eGFR 118 >60 mL/min/1.7 3m2 01/03/2020 20:29 [facility] Comment:eGFR calculated brijesh fernandez CKD-EPI equation for non- Americans. Multiply eGFR by 1.16 for patients. Total Protein 6.5 6.3 - 8.2 g/dL 01/03/2020 20:29 [facility] Albumin 4.1 3.4 - 4.9 g/dL 01/03/2020 20:29 [facility] Alkaline Phosphatase 53 38 - 126 U/L 01/03/2020 20:29 [facility] AST 47(H) 15 - 46 U/L 01/03/2020 20:29 [facility] ALT 31 <50 U/L 01/03/2020 20:29 [facility] Bilirubin, Total 0.6 <1.4 mg/dL 01/03/20 20 20:29 [facility] Calcium 9.1 8.5 - 10.5 mg/dL 01/03/2020 20:29 [facility] Calculated Calcium 9.0 8.5 - 10.5 mg/dL 01/03/2020 20:29 [facility] Blood VENOUS BLOOD / Unknown 01/03/2020 18:39 EDT 01/03/2020 19:57 EDT us Daniel Gannon ND CHEMISTRY & BLOOD GAS ORDER TERE Final Result [facility] [address] [place] [address] * TSH (01/03/2020 18:39 EDT) TSH 0.91 0.47 - 4.68 uIU/mL 01/03/2020 21:01 [facility] Blood VENOUS BLOOD / Unknown 01/03/2020 18:39 EDT 01/03/2020 19:57 EDT Narrative [facility] - 01/03/2020 21:01 EDT The results of this assay can be falsely lowered due to the consumption of Biotin. Daniel Gannon ND CHEMISTRY & BLOOD GAS ORDER TERE Final Result Performing Organization Address [facility] de Phone Number [facility] [address] [place] [address] * FOLATE (01/03/2020 18:39 EDT) Pathologist [facility] Folate 11.0 See Note ng/mL 01/04/2020 8:44 EDT [facility] Comment: Reference Ranges for Folate: Deficient: ?< 3.4 ng/mL Indeterminate: ??3.4 - 5.4 ng/mL Normal: ? > 5.4 ng/mL The results of this assay can be falsely elevated due to the consumption of Biotin. Blood VENOUS BLOOD / Unknown 01/03/2020 18:39 EDT 01/03/2020 19:57 EDT Daniel Gannon ND CHEMISTRY & BLOOD GAS ORDER TERE Final Result Performing Organization Address [facility] de Phone Number [facility] [address] [place] [address] * (ABNORMAL) COMPLETE BLOOD COUNT (01/03/2020 18:39 EDT) Pathologist [facility] WBC 7.72 4.00 - 10.40 K/cmm 01/03/2020 20:22 EDT [facility] RBC 4.27(L) 4.36 - 5.78 M/cmm 01/03/2020 20:22 EDT [facility] Hemoglobin 13.0(L) 13.8 - 17.3 gm/dL 01/03/2020 20:22 EDT [facility] HCT 38.2(L) 39.5 - 50.2 % 01/03/2020 20:22 EDT [facility] MCV 90 81 - 95 fl 01/03/2020 20:22 EDT [facility] MCH 30.4 27.6 - 33.0 pg 01/03/2020 20:22 T [facility] MCHC 34.0 32.8 - 36.4 gm/dL 01/03/2020 20:22 T [facility] RDW-CV 12.4 <14.2 % 01/03/2020 20:22 T [facility] RDW-SD 40.7 <46.0 fl 01/03/2020 20:22 T [facility] PLT 181 141 - 377 K/cmm 01/03/2020 20:22 [facility] MPV 10.7 9.5 - 12.7 fl 01/03/2020 20:22 [facility] Blood VENOUS BLOOD / Unknown 01/03/2020 18:39 EDT 01/03/2020 19:57 EDT Daniel Gannon ND HEMATOLOGY & PF4 ORDERABLES Final Result [facility] [address] [place] [address] * HEMOGLOBIN A1C (01/03/2020 18:39 EDT) Hemoglobin A1c 5.6 <5.7 % 01/04/2020 8:54 EDT [facility] Comment: Glycemic Status References: Normal: ??<5.7% Pre-Diabetes: ??5.7% - 6.4% Diagnostic of Diabetes: ??> or = 6.5% (if confirmed) Goals for glycemic control in diabetics (ADA 2017): <7.0% target for non adults with diabetes. <7.5% target for children and adolescents with Type I Diabetes. More or less stringent targets may be appropriate for individual patients. Est Avg Glucose 114 mg/dL 0 8:54 EDT [facility] Comment: The eAG represents the A1c result expressed as average glucose in mg/dL. Blood VENOUS BLOOD / Unknown 01/03/2020 18:39 EDT 01/03/2020 19:57 EDT Daniel Gannon ND CHEMISTRY & BLOOD GAS ORDER TERE Final Result [facility] [address] [place] [address] documented in this encounter Visit Diagnoses Diagnosis Abnormal weight loss Loss of weight Encounter for screening for malignant neoplasm of prostate Special screening for malignant neoplasm of prostate Nutritional deficiency, unspecified Epilepsy, unspecified, not intractable, without status epilepticus ([facility]) Encounter for screening for diseases of the blood and blood-forming organs and certain disorders involving the immune mechanism documented in this encounter Care Teams Phone Representative Relationship Specialty Start Date End Date Daniel Gannon ND [address] [place] [address] [place] [address] PCP - General 12/16/16 07/25/20 Kenny Salazar MD [address] [facility] [address] [place] [address] PCP - General Neurology 07/26/20 05/15/24 Daniel Gannon ND [address] [place] [address] [place] [address] PCP - General Naturopathic Medicine 05/16/24 documented as of this encounter
--- OUTSIDE RECORDS SUMMARY | 2024-06-12 19:12 | XMS_ITS | Encounter Summary ---
Author Organization [facility] Address [address] [place] [address] Care Team Providers Care Bathroom Tiling Professional Name Role Phone Kenny Salazar MD Primary Care Provider [phone] Encounter Details Date Type Department Care Team (Latest Contact Info) Description 07/26/2020 Travel Social History Tobacco Use Types Packs/Day [...] Clinic [facility] Rheumatology & Immunology - [address] [phone] Chantel Juan MD [address] [place], [place] [address] documented as of this encounter Visit Diagnoses Not on filedocumented in this encounter Care Teams Bathroom Tiling Professional Relationship Specialty Start Date End Date Kenny Salazar MD [address] [place] [address], [address] [place] [id number] PCP - General Neurology 07/26/20 05/15/24 documented as of this encounter
--- OUTSIDE RECORDS SUMMARY | 2024-06-12 19:12 | XMS_ITS | Encounter Summary ---
Author Organization [facility] Address [address] [place] [address] Care Team Providers Care Photoengraving Machine Operator/Tender Name Role Phone Daniel Gannon ND Primary Care Provider [phone] Reason for Visit * Reason Comments Cardiac Testing Encounter Details Date Type Department Care Team (Latest Contact Info) Description 05/18/2017 7:15 EST Procedure visit [facility] Cardiology - [address] [place] [address] Kris Crawford MD Echo, [place] Discharge Disposition: [...] documented in this encounter Discharge Diagnoses Diagnosis I51.7 Cardiomegaly-I51.7[ICD-10-CM] I35.1 Nonrheumatic aortic (valve) insufficiency-I35.1[ICD-10-CM] 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] documented in this encounter Discharge Disposition Disposition Code Departure Means Destination Auto Discharge documented in this encounter Plan of Treatment Upcoming Encounters Date Type Department Care Team (Late st Contact Info) Description 08/24/2024 14:15 EDT Office Visit [facility] Rheumatology & Immunology - [address] [address] Chantel Juan MD [address] [place], [place] [address] documented as of this encounter Visit Diagnoses Not on filedocumented in this encounter Care Teams Photoengraving Machine Operator/Tender Relationship Specialty Start Date End Date Daniel Gannon ND [address] [place] [address] [address] [place], [place] [address] PCP - General 12/16/16 07/25/20 documented as of this encounter
--- OUTSIDE RECORDS SUMMARY | 2024-06-12 19:12 | XMS_ITS | Encounter Summary ---
Author Organization [facility] Address [address] [place] [address] Care Team Providers Care Collection Officer Name Role Phone Daniel Gannon DARSHANA Primary Care Provider [phone] Reason for Referral * Radiology Services (Routine) - Closed Specialty Diagnoses / Procedures Referred By See hickman Referred To Contact Diagnoses Seizure ([facility]) Procedures MR HEAD W/WO CONTRAST Rob Swan MD Phone: tel: fax: Referral ID Status Reason Start Date Expiration Date Visits Re quested Visits Authorized [id number] Closed 12/22/2016 1 1 Reason for Visit * Reason Comments Seizures Referred by Domenic Mcguire. Hospitalized 11/26-11/27/16 for seizure. Had seizure in Feb 2001 as well. No seizures since discharge * Consult (3 - 10 Business Days) - Closed Specialty Diagnoses / Procedures Referred By See hickman Referred To Contact Neurology Diagnoses New onset seizure ([facility]) Theo Robledo MD Phone: tel: fax: [facility] Neurophysiology - [facility] ([address]) [address] [place] [address] Phone: tel: fax: Referral ID Status Reason Start Date Expiration Date V isits Requested Visits Authorized [id number] Closed Specialty Services Required 11/25/2016 1 1 Encounter Details Date Type Department Care Team (Latest Contact Info) Description 12/22/2016 7:57 EDT - 12/22/2016 23:59 EDT Hospital Encounter [facility] Neurophysiology - [facility] ([address]) [address] [place] [address] [place] [id number] [phone] Seizure (CMS-HCC) (HCC-CMS) (Primary Dx) [...] Sign Reading Time Taken Comments Blood Pressure 136/84 12/22/2016 0804 EDT Pulse 68 12/22/2016 0804 EDT Temperature - - Respiratory Rate 20 12/22/2016 0804 EDT Oxygen Saturation - - Inhaled Oxygen Concentration - - Weight 93.9 kg (207 lb) 12/22/2016 0804 EDT Height 198 cm (6' 5.95) 12/22/2016 0804 EDT Body Mass Index 23.95 12/22/2016 0804 EDT documented in this encounter Functional Status [...] Date of Assessment Author No 12/22/2016 8:07 EDT Jose Medrano RN documented as of this encounter Mental Status * Because of a physical, mental, or emotional condition, does this person have serious difficulty concentrating, remembering, or making decisions? Answer Entry Date Author Yes 12/22/2016 8:07 EDT Jose Medrano RN documented in this encounter Discharge Instructions * Patient Instructions* Miguelangel Sams MD - 12/22/2016 9:25 EDT Discussed in details seizure provoking factors: lack of sleep, missed meals, dehydration, alcohol, missed medications, among others, as well as that the patient should be aware that seizures are morelikely to occur when sick. Discussed in details seizure precautions: no swimming or bathing alone, no working on heights, withopen fire, operating heavy machinery, or engaging in any other task that can put the patient or others in danger in case of the seizure occurrence. Discussed mood issues - although the patient feels that the mood is not as good as before, there isno disruption of daily routine due to mood issues. There is no suicidal or homicidal ideation. documented in this encounter Medications at Time of Discharge zonisamide (ZONEGRAN) 100 mg capsule Take 1 Cap by mouth daily. 60 Cap 1 11/27/2016 06/04/2020 documented as of this encounter Discharge Disposition Disposition Code Departure Means Destination Home or Self Skilled Nursing documented in this encounter Progress Notes * Rob Swan MD - 12/22/2016 0821 EDT [facility] Epilepsy [facility] New Patient Consultation Patient Name: Feliciano Moore : 1980 Age: 36 y.o. Primary Care Provider: Daniel Gannon Date of Service: 12/22/16 Chief Complaint Patient presents with ??? Seizures Referred by Domenic Carroll. Hospitalized 11/26-11/27/16 for seizure. Had seizure in Feb 2001 as well. No seizures since discharge History of Present Illness: Mr. Feliciano Moore is a 36 year-old right-handed man with a history ofheart murmur, HTN, and seizure at 20 years old in the context of recent heavy alcohol use and sleepdeprivation who presented to [facility] epilepsy clinic for evaluation of seizures. His sister, Nikky,who witnessed his recent seizures x2 that prompted hospitalization, was present for the interview and provided collateral information. Mr Moore was in his usual state of health leading up to the seizures that prompted hospitalization 11/25/2016 and 11/26/2016. However, he had been drinking more alcohol than usual in recent days, and he had not been sleeping very much. He had one witnessed generalized onset seizure arising from sleep state, with phenomenology and semiology described below, with spontaneous resolution after about a minute at most, prompting evaluation in the ED. Workup was negative, the patient had returned to cognitive baseline, and the plan was for outpatient evaluation. Upon returning home and returning to sleep, he had a second witnessed generalized onset seizure arising from sleep state, again with spontaneous resolution and rapid return to cognitive baseline. This time, he was admitted to neurology service. In hospital, he underwent 1.5 Gillian MRI brain wo/w rick including thin temporal lobe slices and standard EEG, both of which were normal studies. He was startedon zonisamide 100 mg daily, which initially caused him to feel somewhat ill, with improvement over a few days, although with ongoing appetite suppression. Since starting zonisamide, he has been compliant with the medication, taking it nightly. He has not been driving. Today, his expressed hope is to stop taking zonisamide as soon as safely possible. On discussion with the patient and his sister, there is no history of myoclonic jerks, staring intospace, abnormal tastes or smells, or unusual experiences to suggest aura or focal seizure. Previous work up: 1. Brain imaging: - MRI brain wo/w rick MS protocol 04/12/2015: Normal - MRI wo/w rick epilepsy protocol 11/26/2016: Normal 2. EEG: - Standard EEG 11/26/2016: Normal - Standard EEG 12/16/2016: Normal 3. Epilepsy Monitoring Unit admissions: - None 4. Previous epilepsy-related neurosurgical interventions: - None Current antiepileptic medications: Zonisamide 100 mg qHS. Previous antiepileptic medications: None EVENT SEMIOLOGY: Both recent events, which occurred within 24 hours of one another, arose out of sleep and were witnessed by his sister, who was present for interview today. The patient has no recollection of either event, therefore phenomenology is not possible. 1. 11/25/2016 evening: The patient and his sister were watching a movie, and the patient fell asleep. From sleep, he leaned forward on table then leaned back, with tonic posturing and some clonic activity for 20-60 seconds, with eyes rolled back, mouth clenched, and tongue biting evidenced by blood tinged drool. There was no loss of bowel/bladder continence. The post ictal phase duration was 30 to60 minutes, with return to cognitive baseline. 2. 11/26/2016 around 01:30: From neighboring room, shortly after the patient went to sleep after returning home from the ED, his sister heard heavy breathing and thrashing. She went to his room and the patient was wrapped under the covers, although the patient did seem to have tonic posturing with some clonic activity for about a minute. He was again post ictal for 30 to 60 minutes. 3. 20 years old: Preceded by a few days of sleep deprivation. Reportedly generalized at onset. Risk Factors for Epilepsy: The patient is [...] not admitted to hospital. He went to [facility] two days later. Review of Systems: General: no fever, + night sweats waking up drenched in sweat a couple of nights per week for 2 weeks with spontaneously, decreased appetite since starting zonisamide, no fatigue, + insomnia since starting zonisamide, gained 5-6 pounds over past few months due to decreased activity ENT: no earache, no tinnitus, no hearing loss,no difficulty swallowing. Eyes: + blurred vision at distance and does not wear glasses, no double vision, no loss of vision, no partial visual field loss, no light sensitivity and no pain in or around the eyes. Cardiovascular: no chest pain, + palpitations for lifetime, no fainting, no shortness of breath andno ankle swelling. Respiratory: no cough, no wheezing. Skin: no unexplained rashes, no itching, no alopecia, no skin lesions. GI: no nausea, no vomiting, + diarrhea in distant past, no change in bowel habits, no constipation,no abdominal pain, no bloody or black stools. : no painful urination, no blood in urine, no urinary frequency, no frequent urination at night, no difficulty starting to urinate Musculoskeletal: no joint pain, no muscle cramps, no joint stiffness Neurological: headache, but no weakness, no numbness, no tremor, no tingling sensation, no speech difficulties, no unsteadiness. Psychiatric: + depression symptoms since this past winter Endocrine: not intolerant to cold, not intolerant to heat Heme/Lymphatic: no tendency for easy bruising, no bleeding Past Medical History: Seizures. Cardiac murmur. Hypertension. Vocal cord paralysis. Past Surgical History: Nasal septum surgery. Allergies: No Known Allergies Social history: The patient is . 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 He lives with his and son and sister. He is not driving at this time. He graduated high school and went to [employer]. He quit smoking in 2002. Endorsed beer consumption, stopped liquor after seizure. Rare cannabis and CBD. Denied other recreational substances. Family history: No family history of seizure. HTN. Skin cancer in grandparents. Physical Examination: Vitals: BP 136/84 (BP Cuff Location: Left arm, Patient Position: Sitting, BP Cuff Sizes: Adult, large) Pulse 68 Resp 20 Ht (!) 198 cm (77.95) Wt 93.9 kg (207 lb) BMI 23.95 kg/m2 GENERAL EXAM: Gen: NAD. HEENT: NC/AT. Pulm: Equal air movement bilaterally. CV: RRR. S1/S2 present. +murmur. Ext: Warm to touch. No edema. Neurological Examination: Mental status:. The patient's orientation, memory, attention, language and fund of knowledge were normal. Cranial nerve II: Visual jacobo were intact. Cranial nerves III, IV, and : the oculomotor, trochlear and abducens nerve were intact. Cranial nerve V: facial sensation was normal to light touch and temperature. Masticatory muscle bulk and strength was normal. Cranial nerve VII: no facial nerve palsy was noted. Cranial nerve VIII: hearing was intact to conversation. Cranial nerves IX and X: there was normal movement of the soft palate. Cranial nerve XI: shoulder shrug was intact bilaterally. Cranial nerve XII: there was no tongue deviation with protrusion. Motor Strength & Tone: Strength was 5/5 in upper and lower extremities, both proximally and distally. Patient exhibits normal motor tone. Muscle bulk was normal throughout. Involuntary Movements: No involuntary movements were seen. Sensory: Light touch sensation was intact throughout. Reflexes: Biceps: right 2+, left 2+. Triceps: right 2+, left 2+. Brachioradialis: right 2+, left 2+. Patella: right 2+, left 2+. Ankle Jerk: right 1+, left 1+. Plantar response was flexor bilaterally. Coordination: Coordination was normal, including finger to nose and heel-smith testing. Gait: The gait and station were normal. Romberg was negative. ASSESSMENT: - Problem I: Seizures The patient has had three lifetime seizures. His two recent seizures occurred within a 24-hour interval. All three seizures occurred in the context of alcohol binge and sleep deprivation. We discussed at length that although these events seem to be provoked, the patient does have a low seizure threshold and propensity for seizures, raising the possibility of epilepsy. Right now, the recommendation is to complete the seizure risk stratification, with diagnostics to include 3T MRI and ambulatory EEG. Therapeutically, we recommended remaining on antiseizure pharmacologic therapy for at least 2 years of seizure freedom before considering weaning off of medication. Finally, counseling was provided, as documented below. PLAN: 1. MRI brain wo/w rick 3T, seizure and dysplasia protocol. 2. Ambulatory 72-hour EEG. 3. Continue zonisamide 100 mg/d. Levels were not drawn today. 4. Seizure counseling was provided, as outlined below. 5. Return to clinic in 3-4 months. Discussed in details seizure provoking factors: lack of sleep, missed meals, dehydration, alcohol, missed medications, among others, as well as that the patient should be aware that seizures are morelikely to occur when sick. Discussed in details seizure precautions: no swimming or bathing alone, no working on heights, withopen fire, operating heavy machinery, or engaging in any other task that can put the patient or others in danger in case of the seizure occurrence. Discussed mood issues - although the patient feels that the mood is not as good as before, there isno disruption of daily routine due to mood issues. There is no suicidal or homicidal ideation. Discussed driving in details - explained to the patient that [facility] law requires patient to report their condition to DMV and although does not impose specific time period during which the individual who experienced episode of unprovoked alteration of consciousness should not drive, our recommendation that the patient should not drive for at least 6 months after the last episode of alteration of consciousness. The patient verbalized understanding and agreement. Thank you for involving me in care of Feliciano Moore. Please feel free to contact the office with any questions or concerns. Patient seen under supervision of Dr Swan. Miguelangel Sams MD 12/22/2016 9:21 Neurology PGY-4 Attestation statement: I saw and examined the patient with the resident/fellow. I agree with the findings and plan of care documented in the resident's/fellow's note. Rob Swan M.D. Attending, Epilepsy Program [facility] documented in this encounter Plan of Treatment Upcoming Encounters Date Type Department Care Team (Late st Contact Info) Description 08/24/2024 14:15 EDT Office Visit [facility]umatology [facility] [place] [address] Chantel Juan MD [address] [place] [phone] documented as of this encounter Procedures Procedure Name Priority Date/Time Associated Diagnosis Comments MR HEAD W/WO CONTRAST Routine 02/02/2017 20:01 EDT Seizure (CMS-HCC) (HCC-CMS) documented in this encounter Results * MR HEAD W/WO CONTRAST (02/02/2017 20:01 EDT) Anatomical Region Laterality Modality Other 02/02/2017 20:0 1 EDT 02/03/2017 9:43 EDT Narrative 02/03/2017 9:43 EDT MR HEAD W/WO CONTRAST ??02/02/2017 8:01 PM CLINICAL HISTORY: Seizures. COMPARISON: MRI brain November 26, 2016. TECHNIQUE: MRI of the brain was performed without and with intravenous contrast. Multiplanar, multisequence images were obtained. FINDINGS: Brain parenchyma demonstrates normal signal intensity. ? No acute hemorrhage. No midline shift. No evidence of recent infarction. No hydrocephalus. Flow voids and intravascular enhancement are normal where appropriate. ? The paranasal sinuses and mastoid air cells are predominantly clear. Bone marrow signal is normal. Following contrast administration, there is no abnormal brain parenchymal or leptomeningeal enhancement. IMPRESSION: No findings to suggest a cause for seizures. Procedure Note Daniel Duff - 02/03/2017 MR HEAD W/WO CONTRAST 02/02/2017 8:01 PM CLINICAL HISTORY: Seizures. COMPARISON: MRI brain November 26, 2016. TECHNIQUE: MRI of the brain was performed without and with intravenous contrast. Multiplanar, multisequence images were obtained. FINDINGS: Brain parenchyma demonstrates normal signal intensity. No acute hemorrhage. No midline shift. No evidence of recent infarction. No hydrocephalus. Flow voids and intravascular enhancement are normal where appropriate. The paranasal sinuses and mastoid air cells are predominantly clear. Bone marrow signal is normal. Following contrast administration, there is no abnormal brain parenchymal or leptomeningeal enhancement. IMPRESSION: No findings to suggest a cause for seizures. us Rob Swan MD IMG MRI ORDERABLES Final Res ult documented in this encounter Visit Diagnoses Diagnosis Seizure ([facility])- Primary Other convulsions documented in this encounter Care Teams Collection Officer Relationship Specialty Start Date End Date Daniel Gannon, DARSHANA [address] [place] [address] [place] [address] PCP - General 12/16/16 07/25/20 documented as of this encounter
--- OUTSIDE RECORDS SUMMARY | 2024-06-12 19:13 | XMS_ITS | Encounter Summary ---
Author Organization [facility] Address [address] [place] [address] Care Team Providers Care Cheese Sprayer Name Role Phone Jayshree Gutierrez MD Primary Care Provider Reason for Visit * Reason Onset Date Comments Other 05/08/2013 skipped/irregula r heart beat Encounter Details Date Type Department Care Team (Late st Contact Info) Description 05/08/[address] [facility] Cardiology - [address] [place] [address] Andie Stokes, RN Other (skipped/irregular heart beat) Social History Tobacco Use Types Packs/Day Years [...] on file documented as of this encounter Miscellaneous Notes * Telephone Encounter - Andie Stokes RN - 05/08/2013 2652 EST Also told pt if he has further episodes then we would like him to try and get an EKG. Reviewed with Kristie Peralta TECHNICAL FELLOW- agrees with plan to call back with further episodes and to get EKG. * Telephone Encounter - Andie Stokes RN - 05/08/2013 1253 EST Call from pt's and pt stating they arrived in [place] last steven after 3 connecting flights. Pt states he had an 8 hr episode last steven where he felt heart beat was irregular, would speed up andslow down. Has had this before but typically lasts minutes. Denies sob, no lightheadedness. States he checks pulse and it feels regular and no more rushing feelings. Told pt to call with any further episodes. Will also review with MD here since Dr. Crawford is away. documented in this encounter Plan of Treatment Upcoming Encounters Date Type Department Care Team (Late st Contact Info) Description 08/24/2024 14:[address] [facility] Rheumatology & Immunology - [address] [address] Chantel Juan MD [address] [place] [phone] documented as of this encounter Visit Diagnoses Not on filedocumented in this encounter Care Teams Cheese Sprayer Relationship Specialty Start Date End Date Jayshree Gutierrez MD [address] [place] [phone] PCP - General 03/03/11 03/05/15 documented as of this encounter
--- OUTSIDE RECORDS SUMMARY | 2024-06-12 19:13 | XMS_ITS | Encounter Summary ---
Author Organization [facility] Address [address] [place] [address] Care Team Providers Care Sugar Controller Name Role Phone Pao Gupta ND Primary Care Provider [phone] Encounter Details Date Type Department Care Team (Latest Contact Info) Description 03/12/2016 15:50 EDT - 03/12/2016 15:51 EDT Hospital Encounter [address] [address] Pao Gupta, [place] [address] [place] [address] Discharge Disposition: Home or Self Care Social [...] on file documented as of this encounter Discharge Diagnoses Diagnosis K21.9 Gastro-esophageal reflux disease without esophagitis-K21.9[ICD-10-CM] documented in this encounter Discharge Disposition Disposition Code Departure Means Destination Home or Self Care documented in this encounter Plan of Treatment Upcoming Encounters Date Type Department Care Team ( st Contact Info) Description 08/24/2024 14:15 EDT Office Visit [facility] Rheumatology & Immunology - [facility] [address] [place] [address] Chantel Juan MD [address] [place] [phone] documented as of this encounter Visit Diagnoses Not on filedocumented in this encounter Care Teams Sugar Controller Relationship Specialty Start Date End Date Pao Gupta ND PCP - General 03/06/15 12/15/16 documented as of this encounter
--- OUTSIDE RECORDS SUMMARY | 2024-06-12 19:13 | XMS_ITS | Encounter Summary ---
Author Organization [facility] Address [address] [place] [address] Care Team Providers Care [employer] Member Name Role Phone Jayshree Gutierrez MD Primary Care Provider Encounter Details Date Type Department Care Team (Late st Contact Info) Description 11/06/2014 Phlebotomy Only [address] [phone] Concrete Mixer Operator, Outpatient Social History Tobacco Use Types Packs/Day [...] on file documented as of this encounter Plan of Treatment Upcoming Encounters Date Type Department Care Team (Late st Contact Info) Description 08/24/2024 14:15 EDT Office Visit [facility] Rheumatology & Immunology [address] [address] Chantel Juan MD [address] [place] [phone] documented as of this encounter Visit Diagnoses Not on filedocumented in this encounter Care Teams [employer] Member Relationship Specialty Start Date End Date Jayshree Gutierrez MD [address] [place] [phone] PCP - General 03/03/11 03/05/15 documented as of this encounter
--- OUTSIDE RECORDS SUMMARY | 2024-06-12 19:13 | XMS_ITS | Encounter Summary ---
Author Organization [facility] Address [address] [place] [address] Care Team Providers Care Administrative Supervisor Name Role Phone Jayshree Gutierrez MD Primary Care Provider Encounter Details Date Type Department Care Team (Latest Contact Info) Description 02/04/2015 11:36 EDT - 02/04/2015 23:59 EDT Hospital Encounter [address] [address] Pao Gupta, [place] [address] [place] [address] Discharge Disposition: Home or Self [...] as of this encounter Discharge Diagnoses Diagnosis 785.1 PALPITATIONS[ICD-9-CM] documented in this encounter Discharge Disposition Disposition Code Departure Means Destination Home or Self Retirement documented in this encounter Plan of Treatment Upcoming Encounters Date Type Department Care Team (Late st Contact Info) Description 08/24/2024 14:15 EDT Office Visit [facility] Rheumatology & Immunology [address] [id number] Chantel Juan MD [address] [place], [place] [id number] documented as of this encounter Procedures Procedure Name Priority Date/Time Associated Diagnosis Comments MR NEURO MS BRAIN W/WO CONTRAST 04/12/2015 9:29 EDT documented in this encounter Results * MR NEURO MS BRAIN W/O & W CONTRAST (04/12/2015 9:29 EDT) Anatomical Region Laterality Modality Other 04/12/2015 9:29 EDT 04/12/2015 10:36 EDT Narrative 04/12/2015 10:36 EDT MRI of the brain April 12, 2015. History: Dizziness and occipital headache. Comparison: None. Technique: Routine multiplanar pre-and postgadolinium MR imaging of the brain was acquired. Findings: There is no restricted diffusion present to suggest recent acute ischemia. No intracranial mass or mass effect is present and there is no midline shift. No focal FLAIR hyperintensities are identified within the white matter. The susceptibility weighted imaging demonstrates no evidence of prior parenchymal hemorrhage. Ventricular caliber is normal. The basal cisterns are patent. On the postgadolinium imaging there is no abnormal enhancement within the brain. The orbits appear unremarkable. There is minor soft tissue thickening in the maxillary sinuses and sphenoid sinuses. The mastoid air cells are clear. Impression: Normal examination of the brain. Procedure Note Feliciano Cardenas MD - 04/12/2015 MRI of the brain April 12, 2015. History: Dizziness and occipital headache. Comparison: None. Technique: Routine multiplanar pre-and postgadolinium MR imaging of the brain was acquired. Findings: There is no restricted diffusion present to suggest recent acute ischemia. No intracranial mass or mass effect is present and there is no midline shift. No focal FLAIR hyperintensities are identified within the white matter. The susceptibility weighted imaging demonstrates no evidence of prior parenchymal hemorrhage. Ventricular caliber is normal. The basal cisterns are patent. On the postgadolinium imaging there is no abnormal enhancement within the brain. The orbits appear unremarkable. There is minor soft tissue thickening in the maxillary sinuses and sphenoid sinuses. The mastoid air cells are clear. Impression: Normal examination of the brain. us Pao Gupta [place] IMG MRI ORDERABLES Final Result documented in this encounter Visit Diagnoses Not on filedocumented in this encounter Care Teams Administrative Supervisor Relationship Specialty Start Date End Date Jayshree Gutierrez MD [address] [place] [id number] PCP - General 03/03/11 03/05/15 documented as of this encounter
--- OUTSIDE RECORDS SUMMARY | 2024-06-12 19:13 | XMS_ITS | Encounter Summary ---
Author Organization [facility] Address [address] [place] [address] Care Team Providers Care Spool Tender Name Role Phone Pao Gupta DARSHANA Primary Care Provider [phone] Reason for Referral * Consult (3 - 10 Business Days) - Closed Specialty Diagnoses / Procedures Referred By See hickman Referred To Contact Neurology Diagnoses New onset seizure ([facility]) Theo Robledo MD Phone: tel: fax: [facility] Neurophysiology [facility] ([facility] [address]) [address] [place] [address] Phone: tel: fax: Referral ID Status Reason Start Date Expiration Date V isits Requested Visits Authorized [id number] Closed Specialty Services Required 11/25/2016 1 1 Question Answer Reason for Request: New seizure Reason for Visit * Reason Comments Seizures witnessed seizure ap prox 20 sec in duration +/-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 Hx of similar event r/t dehyration years ago. c/o nausea all day. A&Ox3 at present. Encounter Details Date Type Department Care Team (Late st Contact Info) Description 11/25/2016 19:45 EDT - 11/26/2016 0:14 EDT Emergency [facility] Emergency Department - [facility] [address] [place] [address] Theo Robledo MD [address] [place] [address], Level [address] [place] [id number] Emergency, MD Pinky New onset seizure (CMS-HCC) (HCC-CMS) (Primary Dx) Discharge Disposition: Home [...] Sign Reading Time Taken Comments Blood Pressure 133/67 11/25/2016 2300 EDT Pulse 75 11/25/20161999 EDT Temperature 36.2 ??C (97.2 ??F) 11/25/20161999 EDT Respiratory Rate 11 11/25/2016 2345 EDT Oxygen Saturation 98% 11/25/2016 2345 EDT Inhaled Oxygen Concentration - - Weight - - Height - - Body Mass Index - - documented in this encounter Functional Status * Because of a physical, mental, or emotional condition, does this person have difficulty doing errands alone such as visiting a doctor's office or shopping? Answer Date of Assessment Author No 05/12/2016 7:57 EST documented as of this encounter Mental Status * Because of a physical, mental, or emotional condition, does this person have serious difficulty concentrating, remembering, or making decisions? Answer Entry Date Author Yes 05/12/2016 7:57 EST documented in this encounter Discharge Diagnoses Diagnosis R56.9 Unspecified convulsions-R56.9[ICD-10-CM] R01.1 Cardiac murmur, unspecified-R01.1[ICD-10-CM] I10 Essential (primary) hypertension-I10[ICD-10-CM] Z87.891 Personal history of nicotine dependence-Z87.891[ICD-10-CM] documented in this encounter Discharge Instructions * Discharge Instructions* Theo oRbledo MD - 11/25/2016 23:41 EDT Follow seizure precautions. Neurology should contact you to arrange for outpatient EEG and follow-up visit. Return to the Emergency Department (ED) if your condition worsens, does not improve as expected, orother new concerns arise. Specifically return if you have new or uncontrolled pain, high fever, difficulty breathing, vomiting and unable to keep down fluids or medications, or any other concerns. * Attachments The following attachments cannot be sent through Care Everywhere. * SEIZURE ([facility]) documented in this encounter Medications at Time of Discharge zonisamide (ZONEGRAN) 100 mg capsule Take 1 Cap by mouth daily. 60 Cap 1 11/27/2016 06/04/2020 documented as of this encounter Discharge Disposition Disposition Code Departure Means Destination Home or Self Care documented in this encounter ED Notes * Theo Robledo MD - 11/25/20162046 EDT DOS: 11/25/2016 Chief Complaint Patient presents with ??? Seizures witnessed seizure approx 20 sec in duration +/-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 Hx of similar event r/t dehyration years ago. c/o nausea all day. A&Ox3 at present. HPI HPI Comments: I, Esteban Molina, am scribing for Theo Robledo MD while he is personally performing the service. Esteban Molina 11/25/2016 20:47 Feliciano Moore is a very pleasant 36 y.o. male who presents to the ED today with a chief complaintof a seizure. The patient has past medical history significant for HTN, aortic and mitral valve insuffiency. Patient presents to the ED via EMS with complaints of a 20 second long seizure witnessed by his sister 45 minutes prior to arrival. His sister reports that his seizure began after he fell asleep watching a movie. While asleep, she reports that his body stiffened up and began having abnormal breathing. She also notes that he bit the side of his tongue during his seizure. Patient reports having a similar event due to dehydration 16 years ago. The patient endorses nausea that has been constant alee, as well as diarrhea. The patient is currently alert and oriented. Patient denies fevers or shortness of breath. He denies any recent head injuries, falls, or traumas. Denies recent sleep deprivation, changes in medications, or any substance abuse or EtOH abuse. Social History: Former smoker (quit 03/03/03). Occasional light alcohol use. 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 The history is provided by the patient, a relative and medical records. Seizures Review of Systems Review of Systems Constitutional: Negative for fever. Respiratory: Negative for shortness of breath. Gastrointestinal: Positive for diarrhea and nausea. Negative for vomiting. Musculoskeletal: Negative for neck stiffness. Neurological: Positive for seizures. All other systems reviewed and are negative. The patient???s past medical, family, and social history was reviewed and updated as needed. No Known Allergies Vital Signs Temp: 36.2 ??C (97.2 ??F) Temp src: Oral Pulse: 75 Heart Rate: 66 BPM Cardiac Rhythm: Normal sinus rhythm Resp: 11 SpO2: 98 % BP: 133/67 BP MAP: 83 mm Hg BP Device: BP Machine BP Cuff Location: Right arm Physical Exam Constitutional: He is oriented to person, place, and time. He appears well- developed and well-nourished. HENT: Head: Normocephalic and atraumatic. Mouth/Throat: Oropharynx is clear and moist. Lacerations (Superficial laceration on left aspect of the tongue) present. Eyes: EOM are normal. Pupils are equal, round, and reactive to light. No scleral icterus. Neck: Normal range of motion. Neck supple. Cardiovascular: Normal rate and regular rhythm. Murmur heard. Pulmonary/Chest: Effort normal and breath sounds normal. Abdominal: Soft. He exhibits no distension. There is no tenderness. There is no guarding. Musculoskeletal: Normal range of motion. He exhibits no edema. Neurological: He is alert and oriented to person, place, and time. He has normal strength. Pupils ERRLA, EOMI Hand grasps 2+ bilat Leg strength equal bilat No pronator drift. No cerebellar signs. CN II-XII grossly intact DTRs 2+ bilat Sensation to light touch intact Skin: Skin is warm and dry. No rash noted. Psychiatric: He has a normal mood and affect. Nursing note and vitals reviewed. RESULTS ED Lab Results Labs Reviewed COMPREHENSIVE METABOLIC PANEL (CMP) - Abnormal Result Value Status Sodium 135 (*) Final Glucose, Serum 116 (*) Final Potassium 3.8 Final Chloride 99 Final CO2 28 Final Total Alkaline Phosphatase 49 Final Bilirubin, Total 0.9 Final AST 40 Final ALT 39 Final Albumin 3.8 Final Total Protein 6.4 Final Creatinine 0.89 Final GFR, Calculated 110 Final BUN 15 Final Calcium 8.7 Final Calculated Calcium 8.9 Final Fasting? Unknown Final HEMAGRAM AND DIFFERENTIAL - Abnormal RBC 4.34 (*) Final HCT 38.8 (*) Final MPV 9.2 (*) Final ABS Lymphs 0.99 (*) Final ABS Immature Grans 0.09 (*) Final WBC 8.27 Final Hemoglobin 13.9 Final MCV 89 Final MCH 32.0 Final MCHC 35.8 Final RDW-CV 12.4 Final RDW-SD 41.0 Final PLT 195 Final Neutrophils 77.8 Final Lymphocytes 12.0 Final Monocytes 8.1 Final Eosinophils 0.5 Final Basophils 0.5 Final Immature Grans 1.1 Final ABS Neutrophils 6.44 Final ABS Monocytes 0.67 Final ABS Eosinophils 0.04 Final ABS Basophils 0.04 Final Type of Diff: Automated Final POCT URINE DIPSTICK - Abnormal Ketones 1+ (*) Final Blood 1+ (*) Final Protein 1+ (*) Final Color YELLOW Final Clarity, UA Clear Final Glucose Neg Final Bilirubin Neg Final Specific [place] 1.020 Final pH 6.0 Final Urobilinogen 1.0 Final Nitrite Neg Final Leuk Esterase Neg Final Tech ID [id number] Final DRUG SCREEN 11, URINE Amphetamine Screen Negative screen. Final Barbituate Screen Negative screen. Final Bezodiazepine Scrn Negative screen. Final Cannabinoids Screen Negative screen. Final Methadone Screen Negative screen. Final Opiates Screen Negative screen. Final Oxycodone Screen Negative screen. Final Cocaine Metabolites Negative screen. Final Buprenorph and Metab Negative screen. Final Methamphetamine Scrn Negative screen. Final Propoxyphene Screen Negative screen. Final HOLD BLUE TOP Hold Blue Top Final Value: Sample for coagulation will be discarded after 4 hours HOLD GREEN TOP Hold Green Top Final Value: Hold for further testing. Specimen will be held for 5 days. ETHANOL, BLOOD Ethanol <10 Final Relevant Data Procedures ED COURSE A medical screening exam was performed. The patient is a 36 y.o. male with a history of HTN, aortic and mitral valve insuffiency who is presenting with a 20 second long seizure witnessed by his sister 45 minutes prior to arrival. Physical exam was significant for a superficial laceration on the left aspect of the tongue, a heart murmur, and a normal neurological exam. Patient was hydrated with 1 L bolus NS. Differential diagnosis includes but is not limited to Sz, mass, bleed. The patient had an EKG which was independently reviewed and interpreted by me. Normal sinus rhythm.70 BPM. LVH. Patient had labs that were reviewed independently by myself, significant for negative EtOH, sodium of 135, glucose of 116, normal CBC, and all other chemistry normal. CT Head w/o Contrast independently reviewed and interpreted by me and reviewed and discussed with radiology. Findings significant for: No acute process. 2222. Re-evaluation. I instructed that the patient to follow-up with the neurology clinic and discussed discharge, which he was agreeable to. Spoke with neurology about arranging a follow-up appointment soon. Patient discharged and instructed to follow up with the epilepsy clinic and EEG. Prior to discharge usual and customary precautions were reviewed with the patient and/or family including follow-up instructions and reasons to return to the Emergency Department if condition worsens, does not improve as expected, or other new concerns arise. ASSESSMENT AND PLAN Final diagnoses: New onset seizure DISPOSITION: Discharged The patient's pain was managed to an adequate level weighing risk vs. benefit of further medications. Upon departure from the Emergency Department, the patient's pain was 0 on a zero to ten scale. Condition at departure from the Emergency Department: Good PCP: Pao Gupta [facility] Number of Diagnoses or Management Options New onset seizure: Diagnosis management comments: 5 Amount and/or Complexity of Data Reviewed Clinical lab tests: ordered and reviewed Tests in the radiology section of CPT??: ordered and reviewed Tests in the medicine section of CPT??: ordered and reviewed Discussion of test results with the performing providers: yes Independent visualization of images, tracings, or specimens: yes Patient Progress Patient progress: stable This documentation is recorded by Esteban Molina acting as Scribe under the direction and presence of Theo Robledo MD. Theo Robledo MD: I personally performed the services recorded by the scribe in my presence. Iconfirm the scribe's documentation has been reviewed by me to accurately and completely record my work, treatment, procedures, and medical decision making. 11/27/2016 22:29 No flowsheet data found. * Carmen Holland - 11/25/20162014 EDT 12 Lead EKG Performed by Carmen Holland and shown to Theo Robledo MD. * Nadja Edmond, RN - 11/25/20161999 EDT witnessed seizure approx 20 sec in duration +/-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 Hx of similar event r/t dehyration years ago. c/o nausea all day. A&Ox3 at present. Visitor in room is pt's sister, an DEVULCANIZER OPERATOR and witness of today's seizure. documented in this encounter Plan of Treatment Upcoming Encounters Date Type Department Care Team (Late st Contact Info) Description 08/24/2024 14:15 EDT Office Visit [facility] Rheumatology & Immunology - [address] [address] Chantel Juan MD [address] [place] [phone] Scheduled Referrals Name Type Priority Associated Diagnoses Orde r Schedule AMB CONS/FOLLOW UP NEUROLOGY Outpatient Referral Routine New onset seizure (CMS-HCC) ([facility]) Ordered: 11/25/2016 documented as of this encounter Procedures Procedure Name Priority Date/Time Associated Diagnosis Comments ECG REPORT - SCANNED 12/08/2016 12:01 EDT POCT URINE DIPSTICK, CLINITEK STAT 11/25/2016 23:[address] HEAD WO CONTRAST STAT 11/25/2016 2 3:09 EDT DRUG SCREEN 11, URINE Routine 11/25/2016 20:58 EDT HOLD GREEN TOP Routine 11/25/2016 20:57 EDT HOLD BLUE TOP Routine 11/25/2016 20:57 EDT COMPLETE BLOOD COUNT AND DIFFERENTIAL STAT 11/25/2016 20:57 EDT ETHANOL, BLOOD Routine 11/25/2016 20:57 EDT COMPREHENSIVE METABOLIC PANEL (CMP) STAT 11/25/2016 20:57 EDT EKG 12-LEAD STAT 11/25/2016 20:16 EDT documented in this encounter Results * ECG REPORT - SCANNED (12/08/2016 12:01 EDT) 12/08/2016 12:0 1 EDT us Scan 2 General Cleaner PROCEDURE/MINOR SURGICAL OR DERABLES Final Result * (ABNORMAL) POCT URINE DIPSTICK (11/25/2016 23:44 EDT) Color YELLOW 11/25/2016 23:51 [facility] Clarity, UA Clear 11/25/2016 23:51 [facility] Glucose Neg Neg 11/25/2016 23:51 [facility] Bilirubin Neg Neg 11/25/2016 23:51 [facility] Ketones 1+(A) Neg 11/25/2016 23:51 [facility] Specific [place] 1.020 1.001 - 1.035 11/25/2016 23:51 [facility] Blood 1+(A) Neg 11/25/2016 23:51 [facility] pH 6.0 4.6 - 8.0 11/25/2016 23:51 [facility] Protein 1+(A) Neg 11/25/2016 23:51 [facility] Urobilinogen 1.0 0.2 - 1.0 E.U./dl 11/25/2016 23:51 [facility] Nitrite Neg Neg 11/25/2016 23:51 EDT [facility] Leuk Esterase Neg Neg 11/25/2016 23:51 EDT [facility] floor worker ID [id number] 11/25/2016 23:51 EDT [facility] Comment:Test performed at [facility] Department Urine specimen (specimen) URINE / Unknown 11/25/2016 23:44 EDT 11/25/2016 23:51 EDT us Theo Robledo MD POINT OF CARE TEST OR DERABLES Final Result [facility] [address] [place] [address] * CT HEAD WO CONTRAST (11/25/2016 23:09 EDT) Anatomical Region Laterality Modality Other 11/25/2016 23:0 9 EDT 11/26/2016 10:49 EDT Narrative 11/26/2016 10:[address] Head without Contrast HISTORY: Seizures. TECHNIQUE: CT head without intravenous contrast per standard department protocol. COMPARISON: Brain MRI 04/12/2015. FINDINGS: There is no evidence of acute intracranial hemorrhage, large territorial infarct, or intracranial mass lesion. The brain parenchyma demonstrates no significant abnormality. A perivascular space in the right putamen is unchanged. The ventricles, cisterns, and sulci are normal in size and configuration. Scattered mural thickening is present in the paranasal sinuses and ethmoid air cells. The bones and extracranial soft tissues are otherwise unremarkable. IMPRESSION: No acute intracranial hemorrhage, large territorial infarct, or mass lesion. I have personally reviewed the images and the above interpretation and agree with the findings. Procedure Note Kris Shah MD - 11/26/2016 CT Head without Contrast HISTORY: Seizures. TECHNIQUE: CT head without intravenous contrast per standard department protocol. COMPARISON: Brain MRI 04/12/2015. FINDINGS: There is no evidence of acute intracranial hemorrhage, large territorial infarct, or intracranial mass lesion. The brain parenchyma demonstrates no significant abnormality. A perivascular space in the right putamen is unchanged. The ventricles, cisterns, and sulci are normal in size and configuration. Scattered mural thickening is present in the paranasal sinuses and ethmoid air cells. The bones and extracranial soft tissues are otherwise unremarkable. IMPRESSION: No acute intracranial hemorrhage, large territorial infarct, or mass lesion. I have personally reviewed the images and the above interpretation and agree with the findings. us Theo Robledo MD IMG CT ORDERABLES Fin al Result * DRUG SCREEN 11, URINE (11/25/2016 20:58 EDT) Amphetamine Screen Negative screen. 11/26/2016 0:14 EDT [facility] Comment: Confirmation testing available upon request. New methodology in use 10/21/16. Suitable for medical purposes only. Will not detect all drugs within class. Cutoff = 500 ng/ml Specimen type is urine. Barbituate Screen Negative screen. 11/26/2016 0:14 [facility] Comment: Confirmation testing available upon request. New methodology in use 10/21/16. Suitable for medical purposes only. Will not detect all drugs within class. Cutoff = 200 ng/ml Specimen type is urine. Benzodiazepine Scrn Negative screen. 11/26/2016 0:14 [facility] Comment: Confirmation testing available upon request. New methodology in use 10/21/16. Suitable for medical purposes only. Will not detect all drugs within class. Cutoff = 150 ng/ml Specimen type is urine. Cannabinoids Screen Negative screen. 11/26/2016 0:14 [facility] Comment: Confirmation testing available upon request. New methodology in use 10/21/16. Suitable for medical purposes only. Will not detect all drugs within class. Cutoff = 50 ng/ml Specimen type is urine. Methadone Screen Negative screen. 11/26/2016 0:14 [facility] Comment: Confirmation testing available upon request. New methodology in use 10/21/16. Suitable for medical purposes only. Will not detect all drugs within class. Cutoff = 200 ng/ml Specimen type is urine. Opiates Screen Negative screen. 11/26/2016 0:14 [facility] Comment: Confirmation testing available upon request. New methodology in use 10/21/16. Suitable for medical purposes only. Will not detect all drugs within class. Cutoff = 100 ng/ml Specimen type is urine. Oxycodone Screen Negative screen. 11/26/2016 0:14 EDT [facility] Comment: Confirmation testing available upon request. New methodology in use 10/21/16. Suitable for medical purposes only. Will not detect all drugs within class. Cutoff = 100 ng/ml Specimen type is urine. Cocaine Metabolites Negative screen. 11/26/2016 0:14 EDT [facility] Comment: Confirmation testing available upon request. New methodology in use 10/21/16. Suitable for medical purposes only. Will not detect all drugs within class. Cutoff = 150 ng/ml Specimen type is urine. Buprenorph and Metab Negative screen. 11/26/2016 0:14 EDT [facility] Comment: Confirmation testing available upon request. New methodology in use 10/21/16. Suitable for medical purposes only. Will not detect all drugs within class. Cutoff = 10 ng/ml Specimen type is urine. Methamphetamine Scrn Negative screen. 11/26/2016 0:14 EDT [facility] Comment: Confirmation testing available upon request. New methodology in use 10/21/16. Suitable for medical purposes only. Will not detect all drugs within class. Cutoff = 500 ng/ml Specimen type is urine. Propoxyphene Screen Negative screen. 11/26/2016 0:14 EDT [facility] Comment: Confirmation testing available upon request. New methodology in use 10/21/16. Suitable for medical purposes only. Will not detect all drugs within class. Cutoff = 300 ng/ml Specimen type is urine. Urine specimen (specimen) URINE / Unknown 11/25/2016 20:58 EDT 11/25/2016 23:56 EDT us Theo Robledo MD GEN LAB UNIT COLLECT ORDERABLES Final Result [facility] [address] [place] [address] * ETHANOL, BLOOD (11/25/2016 20:57 EDT) Ethanol <10 <10 mg/dl 11/25/2016 21:24 EDT [facility] BLOOD SPECIMEN / Unknown 11/25/2016 20:57 EDT 11/25/2016 21:04 EDT us Theo Robledo MD CHEMISTRY & BLOOD GAS ORDERABLES Final Result [facility] [address] [place] [address] * HOLD GREEN TOP (11/25/2016 20:57 EDT) Hold Green Top Hold for further testing. Specimen will be held for 5 days. 11/25/2016 21:17 EDT [facility] BLOOD SPECIMEN / Unknown 11/25/2016 20:57 EDT 11/25/2016 21:04 EDT us Theo Robledo MD LAB INFO SERVICE AND SUPPORT & PHONE RESULT Final Result Performing Organization Address [facility]/ZIP Co de Phone Number [facility] [address] [place] [address] * HOLD BLUE TOP (11/25/2016 20:57 EDT) Hold Blue Top Sample for coagulation will be discarded after 4 hours 11/25/2016 21:42 EDT [facility] BLOOD SPECIMEN / Unknown 11/25/2016 20:57 EDT 11/25/2016 21:04 EDT us Theo Robledo MD LAB INFO SERVICE AND SUPPORT & PHONE RESULT Final Result Performing Organization Address City/[facility]/ZIP Co de Phone Number [facility] [address] [place] [address] * (ABNORMAL) HEMAGRAM AND DIFFERENTIAL (11/25/2016 20:57 EDT) WBC 8.27 4.0 - 10.4 K/cmm 11/25/2016 21:14 EDT [facility] RBC 4.34(L) 4.36 - 5.78 M/cmm 11/25/2016 21:14 EDT [facility] Hemoglobin 13.9 13.8 - 17.3 gm/dl 11/25/2016 21:14 [facility] HCT 38.8(L) 39.5 - 50.2 % 11/25/2016 21:14 [facility] MCV 89 81 - 95 fl 11/25/2016 21:14 [facility] MCH 32.0 27.6 - 33.0 pg 11/25/2016 21:14 [facility] MCHC 35.8 32.8 - 36.4 gm/dl 11/25/2016 21:14 [facility] RDW-CV 12.4 <14.2 % 11/25/2016 21:14 [facility] RDW-SD 41.0 <46.0 fl 11/25/2016 21:14 [facility] PLT 195 141 - 377 K/cmm 11/25/2016 21:14 [facility] MPV 9.2(L) 9.5 - 12.7 fl 11/25/2016 21:14 [facility] % Neutrophils 77.8 % 11/25/2016 21:14 [facility] % Lymphocytes 12.0 % 11/25/2016 21:14 [facility] % Monocytes 8.1 % 11/25/2016 21:14 [facility] % Eosinophils 0.5 % 11/25/2016 21:14 [facility] % Basophils 0.5 % 11/25/2016 21:14 [facility] % Immature Grans 1.1 % 11/25/2016 21:14 [facility] ABS Neutrophils 6.44 2.20 - 8.85 K/cmm 11/25/2016 21:14 [facility] ABS Lymphs 0.99(L) 1.09 - 3.30 K/cmm 11/25/2016 21:14 [facility] ABS Monocytes 0.67 0.1 - 0.8 K/cmm 11/25/2016 21:14 [facility] ABS Eosinophils 0.04 0.03 - 0.61 K/cmm 11/25/2016 21:14 [facility] ABS Basophils 0.04 0.01 - 0.11 K/cmm 11/25/2016 21:14 [facility] ABS Immature Grans 0.09(H) 0 - 0.06 K/cmm 11/25/2016 21:14 [facility] SERVICES Type of Diff: Automated 11/25/2016 21:14 [facility] Blood specimen (specimen) BLOOD SPECIMEN / Unknown 11/25/2016 20:57 EDT 11/25/2016 21:04 EDT us Theo Robledo MD PACKAGES & DNA PROBE ORDERABLES Final Result [facility] [address] [place] [address] * (ABNORMAL) COMPREHENSIVE METABOLIC PANEL (CMP) (11/25/2016 20:57 EDT) Potassium 3.8 3.5 - 5.0 mEq/L 11/25/2016 21:24 [facility] Sodium 135(L) 136 - 145 mEq/L 11/25/2016 21:24 [facility] Chloride 99 96 - 110 mEq/L 11/25/2016 21:24 [facility] CO2 28 22 - 32 mEq/L 11/25/2016 21:24 [facility] Total Alkaline Phosphatase 49 38 - 126 U/L 11/25/2016 21:24 [facility] Bilirubin, Total 0.9 <1.4 mg/dl 11/26/19 17 21:24 [facility] AST 40 15 - 46 U/L 11/25/2016 21:24 [facility] ALT 39 21 - 72 U/L 11/25/2016 21:24 [facility] Albumin 3.8 3.4 - 4.9 g/dl 11/25/2016 21:24 [facility] Total Protein 6.4 6.3 - 8.2 g/dl 11/25/2016 21:24 [facility] Creatinine 0.89 0.66 - 1.25 mg/dl 11/25/2016 21:24 EDT [facility] GFR, Calculated 110 >60 ml/min/1.7 3m2 11/25/2016 21:24 EDT [facility] Comment: eGFR calculated using CKD-EPI equation for non Americans. Multiply eGFR by 1.16 for Americans. BUN 15 10 - 26 mg/dl 11/25/2016 21:24 EDT [facility] Calcium 8.7 8.5 - 10.5 mg/dl 11/25/2016 21:24 T [facility] Calculated Calcium 8.9 8.5 - 10.5 mg/dl 11/25/2016 21:24 T [facility] Glucose, Serum 116(H) 70 - 100 mg/dl 11/25/2016 21:24 T [facility] Fasting? Unknown 11/25/2016 21:06 EDT [facility] Blood specimen (specimen) BLOOD SPECIMEN / Unknown 11/25/2016 20:57 EDT 11/25/2016 21:04 EDT us Theo Robledo MD CHEMISTRY & BLOOD GAS ORDERABLES Final Result [facility] [address] [place] [address] * EKG 12-LEAD (11/25/2016 20:16 EDT) 11/25/2016 20:1 6 EDT Narrative [facility] - 12/05/2016 21:32 EDT ?[facility] ? Test Date: ?2016-11-25 Pat Name: ? FELICIANO MOORE ?Department: ?? ED ? Room: ? AC05 Gender: ? 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 [id number] : ?1980 ? Requested By: YOVANY Burt Order Number: [id number] ? Reading MD: ?? NADJA SHAFER MD ? Measurements Intervals ?Randolph ? Rate: ? 70 ? P: ?39 MA: ? 172 ?QRS: ?51 QRSD: ? 97 ? T: ?44 QT: ? 374 ? QTc: ?406 ? Interpretive Statements SINUS RHYTHM POSSIBLE LEFT VENTRICULAR HYPERTROPHY Automated Interpretation. ??Provider Interpretation to follow. Compared to ECG 06/26/2014 10:42:55 Sinus rhythm now present I reviewed the tracing and have either agreed or edited the findings in this report. Electronically Signed On 12-05-16 21:32:12 EDT by NADJA SHAFER MD. 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 Provider Interpretation to follow. Compared to ECG 06/26/2014 10:42:55 Sinus rhythm now present I reviewed the tracing and have either agreed or edited the findings inthis report. Electronically Signed On 12-05-16 21:32:12 EDT by NADJA NIEVES. Theo Robledo MD CARDIAC ECG ORDERABLE S Final Result [facility] documented in this encounter Visit Diagnoses Diagnosis New onset seizure (HCC-CMS)- Primary Other convulsions documented in this encounter Administered Medications Inactive Administered Medications - up to 3 most recent administrations Medication Order MAR Action Action Date Dose Rate Site sodium chloride 0.9 % BOLUS 1,000 mL 1,000 mL, intravenous, NOW X1, 1 dose, On Wed11/25/16 at 2100, STAT New Bag 11/25/2016 20:00 EDT 1,000 mL documented in this encounter Active and Recently Administered Medications Times are shown in EDT. Scheduled Medication Order 11/24/2016 11/25/2016 11/26/2016 sodium chloride 0.9 % BOLUS 1,000 mL (COMPLETED) 1,000 mL, intravenous, NOW X1, 1 dose, On Wed11/25/16 at 2100, STAT 2000 (New Bag - Provider: Nadja Young, RN) documented in this encounter Orders Medications Ordered That Marin ht Not Have Been Administered Count Last Ordered Date First Ordered Date sodium chloride 0.9 % BOLUS 1,000 mL 1 11/12 documented in this encounter Care Teams Spool Tender Relationship Specialty Start Date End Date Pao Gupta ND PCP - General 03/06/15 12/15/16 documented as of this encounter
--- OUTSIDE RECORDS SUMMARY | 2024-06-12 19:13 | XMS_ITS | Encounter Summary ---
Author Organization [facility] Address [address] [place] [address] Care Team Providers Care Warehouse Inventory Clerk Name Role Phone Jayshree Gutierrez MD Primary Care Provider Encounter Details Date Type Department Care Team (Latest Contact Info) Description 11/06/2014 11:24 EDT - 11/06/2014 23:59 EDT Hospital Encounter [address] [address] Pao Gupta, [place] [address] [place] [phone] Discharge Disposition: Home or Self [...] as of this encounter Discharge Diagnoses Diagnosis 041.86 HELICOBACTER PYLORI (H PYLORI)[ICD-9-CM] documented in this encounter Discharge Disposition Disposition Code Departure Means Destination Home or Self Care documented in this encounter Plan of Treatment Upcoming Encounters Date Type Department Care Team (Late st Contact Info) Description 08/24/2024 14:15 EDT Office Visit [facility] Rheumatology & Immunology - [facility] [address] [place], [place] [phone] Chantel Juan MD [address] [place] [address] documented as of this encounter Visit Diagnoses Not on filedocumented in this encounter Care Teams Warehouse Inventory Clerk Relationship Specialty Start Date End Date Jayshree Gutierrez MD [address] [place] [phone] PCP - General 03/03/11 03/05/15 documented as of this encounter
--- OUTSIDE RECORDS SUMMARY | 2024-06-12 19:13 | XMS_ITS | Encounter Summary ---
Author Organization [facility] Address [address] [place] [address] Care Team Providers Care Snowboarding Instructor Name Role Phone Jayshree Gutierrez MD Primary Care Provider Reason for Visit * Reason Onset Date Comments Follow-up 12/19/2014 Encounter Details Date Type Department Care Team (Late st Contact Info) Description 12/19/2014 Telephone [facility] Cardiology - [place] [place] [address] Kris Crawford MD Follow-up Social History Tobacco Use Types Packs/Day [...] Telephone Encounter - Eboni Lombardi RN - 12/19/2014 1500 EDT , Cherri- Called and needs to speak to Dr Crawford. Please call Cherri and pt on January 01. Please call after 2PM, would like to discuss referral in more detail, have questions. Please call her at: [phone] Fine not to call prior to that- they will be out of town, thank you. Will put in calendar reminder for that date. * Telephone Encounter - Emma Farris - 12/19/2014 1410 EDT Pt's calling to speak with dr Crawford regarding pts referral for a 2 opinion. Pt was hoping to put referral on hold for a couple years and needed Dr. Crawford's okay. Please call back to discuss. documented in this encounter Plan of Treatment Upcoming Encounters Date Type Department Care Team (Late st Contact Info) Description 08/24/2024 14:15 EDT Office Visit [facility] Rheumatology & Immunology - [facility] [address] [place] [address] Chantel Juan MD [address] [place] [address] documented as of this encounter Visit Diagnoses Not on filedocumented in this encounter Care Teams Snowboarding Instructor Relationship Specialty Start Date End Date Jayshree Gutierrez MD [address] [place] [phone] PCP - General 03/03/11 03/05/15 documented as of this encounter
--- OUTSIDE RECORDS SUMMARY | 2024-06-12 19:13 | XMS_ITS | Encounter Summary ---
Author Organization [facility] Address [address] [place] [address] Care Team Providers Care Spiral Binder Name Role Phone Pao Gupta ND Primary Care Provider [phone] Encounter Details Date Type Department Care Team (Late st Contact Info) Description 04/12/2015 Results Only [facility]- [facility] [phone] Kim Grimaldo MD [place] Location [address] [place] [address] Social History Tobacco Use Types Packs/Day Years [...] Info) Description 08/24/2024 14:15 EDT Office Visit [facility] Rheumatology & Immunology - [facility] [address], [place] [phone] Chantel Juan MD [address] [place], [place] [phone] documented as of this encounter Procedures Procedure Name Priority Date/Time Associated Diagnosis Comments CREATININE, ISTAT Routine 04/12/2015 9:00 EDT documented in this encounter Results * CREATININE, ISTAT (04/12/2015 9:00 EDT) Creatinine, i-STAT 1.1 0.6 - 1.3 mg/dl 04/12/2015 9:09 EDT [facility] operations lead ID [id number] 04/12/2015 9:09 EDT [facility] Comment:[facility] BLOOD SPECIMEN / Unknown 04/12/2015 9:00 EDT 04/12/2015 9:09 EDT us Kim Grimaldo MD POINT OF CARE TEST ORDERABLES Final Result Performing Organization Address City/State/[facility] Co de Phone Number [facility] [address] [place] [address] documented in this encounter Visit Diagnoses Not on filedocumented in this encounter Care Teams Spiral Binder Relationship Specialty Start Date End Date Pao Gupta ND PCP - General 03/06/15 12/15/16 documented as of this encounter
--- OUTSIDE RECORDS SUMMARY | 2024-06-12 19:13 | XMS_ITS | Encounter Summary ---
Author Organization [facility] Address [address] [place] [address] Care Team Providers Care General Clerk Name Role Phone Jayshree Gutierrez MD Primary Care Provider Reason for Visit * Reason Onset Date Comments Follow-up 07/10/2014 Referral request : second opinion Encounter Details Date Type Department Care Team (Late st Contact Info) Description 07/10/2014 Telephone [facility] Cardiology - [address] [place], [place] [phone] Kris Crawford MD Follow-up (Referral request: second opinion ) Social History Tobacco Use Types Packs/Day Years [...] Telephone Encounter - Andie Stokes RN - 07/13/2014 1105 EST Left message on home number that Dr. Crawford has spoken with Dr. Rodriguez and that [facility] should be calling them for an appt. Per GABRIEL Paul, he requested records be sent. Asked to call back if they have any questions or need anything further * Telephone Encounter - Andie Stokes RN - 07/12/[address] Crawford, he spoke with Dr. Rodriguez on 07/11/14. * Telephone Encounter - Andie Stokes RN - 07/11/2014 1112 EST Left message on 's voicemail that we are working on the referral and will get back to them onceappt is made. Sent Dr. Crawford an email that Dr. Rodriguez will need to talk with him prior to making appt. * Telephone Encounter - Andie Stokes RN - 07/11/2014 0950 EST Humberto in scheduling aware and also emailed to let him know. * Telephone Encounter - Barbara Gutiérrez - 07/10/2014 1548 EST called stating that they are looking for the second opinion referral to go to the [facility] in the [place], Dr. Phani Rodriguez. documented in this encounter Plan of Treatment Upcoming Encounters Date Type Department Care Team (Late st Contact Info) Description 08/24/2024 14:15 EDT Office Visit [facility] Rheumatology & Immunology - [facility] [address], [place] [address] Chantel Juan MD [address] [place], [place] [phone] documented as of this encounter Visit Diagnoses Not on filedocumented in this encounter Care Teams General Clerk Relationship Specialty Start Date End Date Jayshree Gutierrez MD [address] [place] [phone] PCP - General 03/03/11 03/05/15 documented as of this encounter
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
--- OUTSIDE RECORDS SUMMARY | 2024-06-12 19:13 | XMS_ITS | Encounter Summary ---
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 at 2000, Until Discontinued, Routine Given 11/26/2016 20:14 EDT 100 mg documented in this encounter Active and Recently Administered Medications Times are shown in EDT. Scheduled Medication Order 11/25/2016 11/26/2016 11/27/2016 acetaminophen (TYLENOL) tablet 1,000 mg (COMPLETED) 1,000 mg, oral, NOW X1, 1 dose, On Shanon 11/26/16 at 0500, STAT 0457 (Given - Provider: Paramjit Edmond RN) lactated ringers BOLUS 1,000 mL (COMPLETED) 1,000 mL, intravenous, NOW X1, 1 dose, On Shanon 11/26/16 at 0400, STAT 0400 (New Bag - Provider: Paramjit Edmond RN) zonisamide (ZONEGRAN) capsule 100 mg 100 mg, oral, DAILY, First dose on Shanon 11/26/16 at 2000, Until Discontinued, Routine 2013 (Given - Provider: Dulce Maria English RN) 0900 (Canceled Entry - Provider: Batch Job User Admin - Comment: Automatically canceled at discontinue of medication order) PRN Medication Order 11/25/2016 11/26/2016 11/27/2016 acetaminophen (TYLENOL) tablet 650 mg 650 mg, oral, EVERY 4 HOURS PRN, Starting on Shanon 11/26/16 at 0732, Until Wed11/27/16 at 1349, Pain, Routine No Frequency Medication Order 11/25/2016 11/26/2016 11/27/2016 acetaminophen (TYLENOL) 500 mg tablet 1 dose, Starting on Shanon 11/26/16 at 0458, Until Wed11/27/16 at 1349 documented in this encounter Orders Medications Ordered That Marin ht Not Have Been Administered Count Last Ordered Date First Ordered Date acetaminophen (TYLENOL) 500 mg tablet 1 acetaminophen (TYLENOL) tablet 650 mg 1 Diet Count Last Ordered Date First Orde red Date DISCHARGE DIET 1 11/27/2016 Nursing Count Last Ordered Date First Orde red Date ACTIVITY INSTRUCTIONS 1 11/27/2016 BATHING INSTRUCTIONS 1 11/27/2016 DRIVING INSTRUCTIONS 1 11/27/2016 INSERT PERIPHERAL IV 1 11/26/2016 PATIENT AT LOW RISK FOR VTE: RISK OF PHARMACOLOGIC PROPHYLAXIS OUTWEIG 1 11/26/2016 Consult Count Last Ordered Date First Orde red Date CONSULT CASE MANAGEMENT 1 11/26/2016 Admission Count Last Ordered Date First Orde red Date STATUS: OUTPATIENT OBSERVATION SERVICES 1 0 11/26/2016 Transfer Count Last Ordered Date First Orde red Date NOTIFY PPS OF DISCHARGE COMPLETE 1 11/28/19 17 UR TIME CHANGE ONLY 11/27/2016 PPS NOTIFICATION OF PATIENT ARRIVAL ON UNIT 1 11/26/2016 UR PATIENT STATUS CHANGE 11/26/2016 Legal Count Last Ordered Date First Orde red Date MISCELLANEOUS DISCHARGE INSTRUCTIONS 1 11/12 documented in this encounter Care Teams Patient Account Liaison Relationship Specialty Start Date End Date Pao Gupta ND PCP - General 03/06/15 12/15/16 documented as of this encounter
--- OUTSIDE RECORDS SUMMARY | 2024-06-12 19:13 | XMS_ITS | Encounter Summary ---
Author Organization [facility] Address [address] [place] [address] Care Team Providers Care Bobbin Sorter Name Role Phone Pao Gupta DARSHANA Primary Care Provider [phone] Encounter Details Date Type Department Care Team (Late st Contact Info) Description 05/12/2016 Results Only Imaging [facility] Cardiology - [address] [place] [address] Kris Crawford MD Social History Tobacco Use Types Packs/Day Years [...] as of this encounter Functional Status * Because of [...] 05/12/2016 7:57 EST documented in this encounter Plan of Treatment Upcoming Encounters Date Type Department Care Team (Late st Contact Info) Description 08/24/2024 14:15 EDT Office Visit [facility] Rheumatology & Immunology - Main [place] [address] [place] [address] Chantel Juan MD [address] [place], [place] [address] documented as of this encounter Procedures Procedure Name Priority Date/Time Associated Diagnosis Comments CONGENITAL ECHOCARDIOGRAM 05/12/2016 7:25 EST documented in this encounter Results * CONGENITAL ECHOCARDIOGRAM (05/12/2016 7:25 EST) Anatomical Region Laterality Modality Other 05/12/2016 7:25 EST Narrative 05/12/2016 9:19 EST *Interpreting Group:* *[facility]* [address] [place] [address] Date of study: 05/12/2016 Transthoracic Echocardiography M-mode, complete 2D, complete spectral Doppler, and color Doppler *STUDY CONCLUSIONS* Impressions: ??Compared to the prior study, there has been no significant interval change. Summary: 1. Left ventricle: The cavity size was mildly dilated. Wall thickness ?? was normal. Systolic function was normal. The estimated ejection ?? fraction was 60-65%. Wall motion was normal; there were no regional ?? wall motion abnormalities. 2. Aortic valve: There was severe regurgitation. Vena contracta width > ?? 7 mm. 3. Mitral valve: There was mild regurgitation. 4. Right ventricle: The cavity size was normal. Wall thickness was ?? normal. Systolic function was normal. *PATIENT PRESENTATION* Height: ? 198.1cm ((78in) ) S/D Pressure: 133 / 66 Weight: ? 88.5kg ((194.6lb) ) BSA: ?2.2m^2 Test start time: ??07:26 AM. Test stop time: ??07:50 AM. ATTENDING ?Kris Crawford ORDERING ? Kris Crawford PERFORMING ?? Kris Crawford. FELLOW ? Gregor Bahena MD REFERRING ?Pao Gupta Nd REFERRING ?Kris Crawford w STERNMAN ??[address] *PROCEDURE DATA* Procedure information: ??This study was interpreted by [facility]. Pertinent images and digital data are archived for permanent storage and are available for subsequent review. Study status: ??Routine. Transthoracic echocardiography. ??M-mode, complete 2D, complete spectral Doppler, and color Doppler. A Transthoracic Echocardiogram was performed. Scanning was performed from the parasternal, apical, subcostal, and suprasternal notch acoustic windows. Images were obtained using a Marciano [id number] 7 cardiac ultrasound machine. Image quality was adequate. ??Study completion: ??The patient tolerated the procedure well. There were no complications. *INDICATIONS AND HISTORY* Indications: ?? Aortic Insufficiency (I35.1). Labs, prior tests, procedures, and surgery: Transthoracic echocardiography (03/22/2012). Transthoracic echocardiography (03/03/2011). *CARDIAC ANATOMY* Left ventricle: ??The cavity size was mildly dilated. Wall thickness was normal. Systolic function was normal. The estimated ejection fraction was 60-65%. Wall motion was normal; there were no regional wall motion abnormalities. Diastolic parameters were normal. Aortic valve: ?? Trileaflet; normal thickness leaflets. Mobility was not restricted. ??Doppler: ??Transvalvular velocity was within the normal range. There was no stenosis. There was severe regurgitation. Vena contracta width > 7 mm. ?Mean gradient (S): 65.6mm Hg. Peak gradient (S): 95.8mm Hg. Aorta: ??Aortic root: The aortic root was normal in size. Mitral valve: ?? Mildly thickened leaflets. Mobility was not restricted. Doppler: ??Transvalvular velocity was within the normal range. There was no evidence for stenosis. There was mild regurgitation. ?Peak gradient (D): 7.2mm Hg. Left atrium: ??The atrium was normal in size. Right ventricle: ??The cavity size was normal. Wall thickness was normal. Systolic function was normal. Pulmonic valve: ?The valve appears to be grossly normal. ?Doppler: Transvalvular velocity was within the normal range. There was no evidence for stenosis. There was trivial regurgitation. Tricuspid valve: ?? Structurally normal valve. ?Doppler: ??Transvalvular velocity was within the normal range. There was no evidence for stenosis. There was no regurgitation. Pulmonary artery: ?? The main pulmonary artery was normal-sized. Systolic pressure could not be accurately estimated. Right atrium: ??The atrium was normal in size. Pericardium: ??There was no pericardial effusion. Systemic veins: Inferior vena cava: The vessel was normal in size. The respirophasic diameter changes were in the normal range (greater than or equal to 50%), consistent with normal central venous pressure. Measurements Left ventricle ? Value ?05/15/2014 Reference LV ejection fraction, 1-p A2C ?68 ?% ? LV ejection fraction, 1-p A4C ?57 ?% ?60 ? LV IVRT, DP ?(L) ?? 53 ?ms ? 60 - 100 LV e', lateral ? 0.118 m/sec ??0.074 ? LV E/e', lateral ? 11 ? 17 ? LV e', medial ?0.099 m/sec ?? LV E/e', medial ?14 ? LV e', average ? 0.108 m/sec ?? LV E/e', average ? 12 ? LV ejection time ? 810 ?? ms ? Aortic valve ? Value ?05/15/2014 Reference Aortic valve peak velocity, S ?4.9 ?? m/sec ??1.5 ? Aortic valve mean velocity, S ?3.94 ??m/sec ??0.99 ? Aortic valve VTI, S ?320.4 cm ? 37.3 ? Aortic mean gradient, S ?65.6 ??mm Hg ??5 ? Aortic peak gradient, S ?95.8 ??mm Hg ??8 ? Aortic regurg peak velocity ?4.99 ??m/sec ?? Aortic regurg velocity, ED ? 4.94 ??m/sec ??4.31 ? Aortic regurg deceleration ? 194 ?? cm/s^2 232 ? Aortic regurg pressure ? 765 ?? ms ? 559 ? half-time Aortic regurg peak gradient ?99.6 ??mm Hg ?? Aortic regurg gradient, ED ? 97.6 ??mm Hg ??74.3 ? Aorta ?Value ?05/15/2014 Reference Aortic root ID ? 3.2 ?? cm ? Ascending aorta ID, A-P ?3.4 ?? cm ? Ascending aorta ID, A-P, S ? 3.4 ?? cm ? Left atrium ?Value ?05/15/2014 Reference LA ID, A-P, ES ? 2.8 ?? cm ? 3.9 ? LA ID/bsa, A-P ? 1.3 ?? cm/m^2 1.8 ?<=2.2 LA ID, M-L, A4C ?(H) ?? 6.4 ?? cm ? 2.9 - 4.9 LA area, ES, A4C ? 21.4 ??cm^2 ?? 8.8 - 23.4 LA area, ES, A2C ? 20 ?cm^2 ?? LA volume, S ? 58 ?ml ? LA volume/bsa, S ? 26 ?ml/m^2 LA volume, ES, 1-p A4C ? 50 ?ml ? LA volume/bsa, ES, 1-p A4C ? 23 ?ml/m^2 LA volume, ES, 2-p ? 57 ?ml ? LA volume/bsa, ES, 2-p ? 26 ?ml/m^2 LA volume, ES, A/L ? 50 ?ml ? LA volume/bsa, ES, A/L ? 23 ?ml/m^2 LA/aortic root ratio ? 0.88 ? Mitral valve ? Value ?05/15/2014 Reference Mitral E-wave peak velocity ?1.34 ??m/sec ??1.25 ? Mitral A-wave peak velocity ?0.88 ??m/sec ??0.59 ? Mitral deceleration time ? (H) ?? 239 ?? ms ? 342 ?150 - 230 Mitral peak gradient, D ?7.2 ?? mm Hg ??6.3 ? Mitral E/A ratio, peak ? 1.5 ?2.1 ? Tricuspid valve ?Value ?05/15/2014 Reference Tricuspid maximal inflow ? 2.05 ??m/sec ?? velocity, PISA Legend: (L) ??and ??(H) ??matthew values outside specified reference range. I have personally reviewed the images and have reviewed and edited the reported findings. Electronically signed by Kris Crawford 05/12/2016 09:19 Procedure Note Kris Crawford MD - 05/12/2016 *Interpreting Group:* *[facility]* [address] [place] [address] Date of study: 05/12/2016 Transthoracic Echocardiography M-mode, complete 2D, complete spectral Doppler, and color Doppler *STUDY CONCLUSIONS* Impressions: Compared to the prior study, there has been no significant interval change. Summary: 1. Left ventricle: The cavity size was mildly dilated. Wall thickness was normal. Systolic function was normal. The estimated ejection fraction was 60-65%. Wall motion was normal; there were no regional wall motion abnormalities. 2. Aortic valve: There was severe regurgitation. Vena contracta width > 7 mm. 3. Mitral valve: There was mild regurgitation. 4. Right ventricle: The cavity size was normal. Wall thickness was normal. Systolic function was normal. *PATIENT PRESENTATION* Height: 198.1cm ((78in) ) S/D Pressure: 133 / 66 Weight: 88.5kg ((194.6lb) ) BSA: 2.2m^2 Test start time: 07:26 AM. Test stop time: 07:50 AM. ATTENDING Kris Crawford ORDERING Kris Crawford PERFORMING Kris Crawford FELLOW Gregor Bahena MD REFERRING Pao Gupta Nd REFERRING Kris Crawford w STERNMAN [address] *PROCEDURE DATA* Procedure information: This study was interpreted by [facility]. Pertinent images and digital data are archived for permanent storage and are available for subsequent review. Study status: Routine. Transthoracic echocardiography. M-mode, complete 2D, complete spectral Doppler, and color Doppler. A Transthoracic Echocardiogram was performed. Scanning was performed from the parasternal, apical, subcostal, and suprasternal notch acoustic windows. Images were obtained using a Marciano [id number] 7 cardiac ultrasound machine. Image quality was adequate. Study completion: The patient tolerated the procedure well. There were no complications. *INDICATIONS AND HISTORY* Indications: Aortic Insufficiency (I35.1). Labs, prior tests, procedures, and surgery: Transthoracic echocardiography (03/22/2012). Transthoracic echocardiography (03/03/2011). *CARDIAC ANATOMY* Left ventricle: The cavity size was mildly dilated. Wall thickness was normal. Systolic function was normal. The estimated ejection fraction was 60-65%. Wall motion was normal; there were no regional wall motion abnormalities. Diastolic parameters were normal. Aortic valve: Trileaflet; normal thickness leaflets. Mobility was not restricted. Doppler: Transvalvular velocity was within the normal range. There was no stenosis. There was severe regurgitation. Vena contracta width > 7 mm. Mean gradient (S): 65.6mm Hg. Peak gradient (S): 95.8mm Hg. Aorta: Aortic root: The aortic root was normal in size. Mitral valve: Mildly thickened leaflets. Mobility was not restricted. Doppler: Transvalvular velocity was within the normal range. There was no evidence for stenosis. There was mild regurgitation. Peak gradient (D): 7.2mm Hg. Left atrium: The atrium was normal in size. Right ventricle: The cavity size was normal. Wall thickness was normal. Systolic function was normal. Pulmonic valve: The valve appears to be grossly normal. Doppler: Transvalvular velocity was within the normal range. There was no evidence for stenosis. There was trivial regurgitation. Tricuspid valve: Structurally normal valve. Doppler: Transvalvular velocity was within the normal range. There was no evidence for stenosis. There was no regurgitation. Pulmonary artery: The main pulmonary artery was normal-sized. Systolic pressure could not be accurately estimated. Right atrium: The atrium was normal in size. Pericardium: There was no pericardial effusion. Systemic veins: Inferior vena cava: The vessel was normal in size. The respirophasic diameter changes were in the normal range (greater than or equal to 50%), consistent with normal central venous pressure. Measurements Left ventricle Value 05/15/2014 Reference LV ejection fraction, 1-p A2C 68 % LV ejection fraction, 1-p A4C 57 % 60 LV IVRT, DP (L) 53 ms 60 - 100 LV e', lateral 0.118 m/sec 0.074 LV E/e', lateral 11 17 LV e', medial 0.099 m/sec LV E/e', medial 14 LV e', average 0.108 m/sec LV E/e', average 12 LV ejection time 810 ms Aortic valve Value 05/15/2014 Reference Aortic valve peak velocity, S 4.9 m/sec 1.5 Aortic valve mean velocity, S 3.94 m/sec 0.99 Aortic valve VTI, S 320.4 cm 37.3 Aortic mean gradient, S 65.6 mm Hg 5 Aortic peak gradient, S 95.8 mm Hg 8 Aortic regurg peak velocity 4.99 m/sec Aortic regurg velocity, ED 4.94 m/sec 4.31 Aortic regurg deceleration 194 cm/s^2 232 Aortic regurg pressure 765 ms 559 half-time Aortic regurg peak gradient 99.6 mm Hg Aortic regurg gradient, ED 97.6 mm Hg 74.3 Aorta Value 05/15/2014 Reference Aortic root ID 3.2 cm Ascending aorta ID, A-P 3.4 cm Ascending aorta ID, A-P, S 3.4 cm Left atrium Value 05/15/2014 Reference LA ID, A-P, ES 2.8 cm 3.9 LA ID/bsa, A-P 1.3 cm/m^2 1.8 <=2.2 LA ID, M-L, A4C (H) 6.4 cm 2.9 - 4.9 LA area, ES, A4C 21.4 cm^2 8.8 - 23.4 LA area, ES, A2C 20 cm^2 LA volume, S 58 ml LA volume/bsa, S 26 ml/m^2 LA volume, ES, 1-p A4C 50 ml LA volume/bsa, ES, 1-p A4C 23 ml/m^2 LA volume, ES, 2-p 57 ml LA volume/bsa, ES, 2-p 26 ml/m^2 LA volume, ES, A/L 50 ml LA volume/bsa, ES, A/L 23 ml/m^2 LA/aortic root ratio 0.88 Mitral valve Value 05/15/2014 Reference Mitral E-wave peak velocity 1.34 m/sec 1.25 Mitral A-wave peak velocity 0.88 m/sec 0.59 Mitral deceleration time (H) 239 ms 342 150 - 230 Mitral peak gradient, D 7.2 mm Hg 6.3 Mitral E/A ratio, peak 1.5 2.1 Tricuspid valve Value 05/15/2014 Reference Tricuspid maximal inflow 2.05 m/sec velocity, PISA Legend: (L) and (H) matthew values outside specified reference range. I have personally reviewed the images and have reviewed and edited the reported findings. Electronically signed by Kris Crawford 05/12/2016 09:19 us Kris Crawford MD CARDIAC ECHO ORDERABLES Fi nal Result documented in this encounter Visit Diagnoses Not on filedocumented in this encounter Care Teams Bobbin Sorter Relationship Specialty Start Date End Date Pao Gupta ND PCP - General 03/06/15 12/15/16 documented as of this encounter
--- OUTSIDE RECORDS SUMMARY | 2024-06-12 19:13 | XMS_ITS | Encounter Summary ---
Author Organization [facility] Address [address] [place] [address] Care Team Providers Care Director [employer] Name Role Phone Pao Gupta ND Primary Care Provider [phone] Encounter Details Date Type Department Care Team (Late st Contact Info) Description 05/02/2015 Results Only [facility] [phone] Pao Gupta, [place] [address] [place] [id number] Social History Tobacco Use Types Packs/Day Years [...] 14:15 EDT Office Visit [facility] Rheumatology & Immunology - [facility] [address], [place] [address] Chantel Juan MD [address], [place] [id number] documented as of this encounter Procedures Procedure Name Priority Date/Time Associated Diagnosis Comments INSULIN Routine 05/02/2015 12:29 EST LYME AB Routine 05/02/2015 12:26 EST LIPID PROFILE (INCLUDES CHOLESTEROL, TRIGLYCERIDES, HDL, LDL) Routine 05/02/2015 12:26 EST COMPREHENSIVE METABOLIC PANEL (CMP) Routine 05/02/2015 12:26 EST documented in this encounter Results * INSULIN (05/02/2015 12:29 EST) Insulin Cancelled by Physician/Krishna sing Unit <29 uU/mL 05/02/2015 12:36 EST [facility] Comment:PER VERONICA TORRES FOR DR PAO GUPTA [id number] BLOOD SPECIMEN / Unknown 05/02/2015 12:29 EST 05/02/2015 12:32 EST us Pao Gupta ND CHEMISTRY & BLOOD GAS ORDERABLE S Final Result Performing Organization Address City/[facility]/ZIP Co de Phone Number [facility] [address] [place] [address] * LYME AB (05/02/2015 12:26 EST) Lyme AB Cancelled by Physician/Krishna sing Unit 05/02/2015 12:39 EST [facility] Comment:PER VERONICA TORRES FOR DR PAO GUPTA [id number] BLOOD SPECIMEN / Unknown 05/02/2015 12:26 EST 05/02/2015 12:33 EST us Pao Gupta ND IMMUNOLOGY AND SEROLOGY ORDERAB LES Final Result Performing Organization Address City/[facility]/ZIP Co de Phone Number [facility] [address] [place] [address] * LIPID PROFILE (INCLUDES CHOLESTEROL, TRIGLYCERIDES, HDL, LDL) (05/02/2015 12:26 EST) Cholesterol Cancelled by Physician/Krishna sing Unit mg/dl 05/02/2015 12:39 EST [facility] Comment:PER VERONICA TORRES FOR DR PAO GUPTA [id number] Triglycerides Cancelled by Physician/Krishna sing Unit mg/dl 05/02/2015 12:39 [facility] Comment:PER VERONICA DSL FOR DR PAO GUPTA [id number] HDL Cancelled by Physician/Krishna sing Unit mg/dl 05/02/2015 12:39 [facility] Comment:PER VERONICA DSL FOR DR PAO GUPTA [id number] LDL, Calculated Cancelled by Physician/Krishna sing Unit mg/dl 05/02/2015 12:39 [facility] Comment:PER VERONICA DSL FOR DR PAO GUPTA [id number] Chol/HDL Ratio Cancelled by Physician/Krishna sing Unit 05/02/2015 12:39 [facility] Comment:PER VERONICA DSL FOR DR PAO GUPTA [id number] Fasting? Cancelled by Physician/Krishna sing Unit 05/02/2015 12:39 [facility] Comment:PER VERONICA DSL FOR DR PAO GUPTA [id number] Non HDL Cholesterol Cancelled by Physician/Krishna sing Unit mg/dl 05/02/2015 12:39 [facility] Comment:PER VERONICA DSL FOR DR PAO GUPTA [id number] BLOOD SPECIMEN / Unknown 05/02/2015 12:26 EST 05/02/2015 12:33 EST us Pao Gupta ND CHEMISTRY & BLOOD GAS ORDERABLE S Final Result [facility] [address] [place] [address] * COMPREHENSIVE METABOLIC PANEL (CMP) (05/02/2015 12:26 EST) Potassium Cancelled by Physician/Krishna sing Unit 3.5 - 5.0 mEq/L 05/02/2015 12:39 [facility] Comment:PER VERONICA DSL FOR DR PAO GUPTA [id number] Sodium Cancelled by Physician/Krishna sing Unit 136 - 145 mEq/L 05/02/2015 12:39 EST [facility] Comment:PER VERONICA DSL FOR DR PAO GUPTA [id number] Chloride Cancelled by Physician/Krishna sing Unit 96 - 110 mEq/L 05/02/2015 12:39 [facility] Comment:PER VERONICA DSL FOR DR PAO GUPTA [id number] CO2 Cancelled by Physician/Krishna sing Unit 24 - 32 mEq/L 05/02/2015 12:39 [facility] Comment:PER VERONICA DSL FOR DR PAO GUPTA [id number] Total Alkaline Phosphatase Cancelled by Physician/Krishna sing Unit 38 - 126 U/L 05/02/2015 12:39 [facility] Comment:PER VERONICA DSL FOR DR PAO GUPTA [id number] Bilirubin, Total Cancelled by Physician/Krishna sing Unit <1.4 mg/dl 05/02/2015 12:39 [facility] Comment:PER VERONICA DSL FOR DR PAO GUPTA [id number] AST Cancelled by Physician/Krishna sing Unit 15 - 46 U/L 05/02/2015 12:39 [facility] Comment:PER VERONICA DSL FOR DR PAO GUPTA [id number] ALT Cancelled by Physician/Krishna sing Unit 21 - 72 U/L 05/02/2015 12:39 [facility] Comment:PER VERONICA DSL FOR DR PAO GUPTA [id number] Albumin Cancelled by Physician/Krishna sing Unit 3.4 - 4.9 g/dl 05/02/2015 12:39 [facility] Comment:PER VERONICA DSL FOR DR PAO GUPTA [id number] Total Protein Cancelled by Physician/Krishna sing Unit 6.3 - 8.2 g/dl 05/02/2015 12:39 [facility] Comment:PER VERONICA DSL FOR DR PAO GUPTA [id number] Creatinine Cancelled by Physician/Krishna sing Unit 0.66 - 1.25 mg/dl 05/02/2015 12:39 [facility] Comment:PER VERONICA DSL FOR DR PAO GUPTA [id number] GFR, Calculated Cancelled by Physician/Krishna sing Unit >60 ml/min/1. 73m2 05/02/2015 12:39 [facility] Comment:PER VERONICA DSL FOR DR PAO GUPTA [id number] BUN Cancelled by Physician/Krishna sing Unit 10 - 26 mg/dl 05/02/2015 12:39 [facility] Comment:PER VERONICA DSL FOR DR PAO GUPTA [id number] Calcium Cancelled by Physician/Krishna sing Unit 8.5 - 10.5 mg/dl 05/02/2015 12:39 EST [facility] Comment:PER VERONICA DSL FOR DR PAO GUPTA [id number] Calculated Calcium Cancelled by Physician/Krishna sing Unit 8.5 - 10.5 mg/dl 05/02/2015 12:39 EST [facility] Comment:PER VERONICA DSL FOR DR PAO GUPTA [id number] Glucose, Serum Cancelled by Physician/Krishna sing Unit 70 - 100 mg/dl 05/02/2015 12:39 EST [facility] Comment:PER VERONICA DSL FOR DR PAO GUPTA [id number] Fasting? Cancelled by Physician/Krishna sing Unit 05/02/2015 12:39 EST [facility] Comment:PER VERONICA RESTREPOL FOR DR PAO GUPTA [id number] BLOOD SPECIMEN / Unknown 05/02/2015 12:26 EST 05/02/2015 12:33 EST us Pao Gupta ND CHEMISTRY & BLOOD GAS ORDERABLE S Final Result [facility] [address] [place] [address] documented in this encounter Visit Diagnoses Not on filedocumented in this encounter Care Teams Director [employer] Relationship Specialty Start Date End Date Pao Gupta ND PCP - General 03/06/15 12/15/16 documented as of this encounter
--- OUTSIDE RECORDS SUMMARY | 2024-06-12 19:13 | XMS_ITS | Encounter Summary ---
Author Organization [facility] Address [address] [place] [address] Care Team Providers Care Telephone Answerer Name Role Phone Jayshree Gutierrez MD Primary Care Provider Reason for Referral * Cardiology (Routine/Next Available) - Closed Specialty Diagnoses / Procedures Referred By See hickman Referred To Contact Diagnoses AI (aortic insufficiency) Procedures CONGENITAL ECHOCARDIOGRAM Kris Crawford MD Referral ID Status Reason Start Date Expiration Date Visits Re quested Visits Authorized [id number] Closed 05/02/2013 1 1 Reason for Visit * Reason Comments Other aortic valve followu p Cardiac Testing echo today Encounter Details Date Type Department Care Team (Late st Contact Info) Description 05/02/2013 8:20 EST Office Visit [facility] Cardiology - [address] [place] [address] Kris Crawford MD AI (aortic insufficiency) (Primary Dx) Social History Tobacco Use Types [...] Sign Reading Time Taken Comments Blood Pressure 120/80 05/02/2013 0818 EST Pulse 60 05/02/2013 0818 EST Temperature - - Respiratory Rate - - Oxygen Saturation 100% 05/02/2013 08 EST Inhaled Oxygen Concentration - - Weight 87.1 kg (192 lb) 05/02/2013 08 EST Height 198.1 cm (6' 6) 05/02/2013 0818 EST Body Mass Index 22.19 05/02/2013 0818 EST documented in this encounter Discharge Diagnoses Diagnosis 424.1 AORTIC VALVE DISORDER[ICD-9-CM] documented in this encounter Progress Notes * Kris Crawford MD - 05/04/2013 0911 EST DIVISION OF CARDIOLOGY PROGRESS / FOLLOWUP NOTE - 05/02/2013 Jayshree Gutierrez MD [address] [address] Referring Physician: Jayshree Gutierrez Reason For Visit: Valvular heart disease. Problem List: 1. 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 2. Mild to moderate mitral regurgitation. 3. No aortopathy. Dear Akhil: I had the pleasure of seeing Feliciano in 1-year followup in conjunction with an echocardiogram. I reviewed his echocardiogram personally which appears to be a congenitally abnormal valve; it looks possibly quadracuspid but I could not be clearly delineated. There is a central jet of severe aortic insufficiency with resultant LV cavity dilation. The cavity measures 6.1 cm diastolic, 4.2 cm systole, which is unchanged from last year. Again, the ascending aorta is normal in size. He does have a mildly abnormal mitral valve as well with at most mild to moderate mitral regurgitation. The leaflets donot prolapse. 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 He has had no dyspnea above baseline and continues to work very hard. He and his have a 2-year-old boy. He does describe a fair bit of financial stress around the fact that he built the house and has notbeen earning money. There is some emotional stress surrounding things as well, but overall, he thinks things are going well. Current Medications: None. Review of Systems: No cardiovascular issues on cardiovascular review of systems. On physical examination, nice and pleasant, thin individual with a blood pressure of 120/80, heart rate of 60, 192 pounds. Skin is warm and dry. Neurologic grossly nonfocal. Musculoskeletal: Gait is steady. Psychiatric: Oriented x3. Respiratory: Lungs are clear in all jacobo. Cardiovascular: Normal S1, S2 is single. I do not appreciate the PMI. There is a soft 2/6 early systolic murmur at the left sternal border followed by a fairly faint, prolonged 2/6 diastolic murmur also at the left sternalborder. Pulses are somewhat water hammer. Gastrointestinal: Abdomen is scaphoid, nontender. No pulsatile mass. Lower extremities: No edema. Distal pulses in all 4 extremities are +2 and equal without delays. In summary, Feliciano has severe aortic insufficiency with a mildly dilated ventricle with no evidenceof progression compared with last year. There is no evidence of further LV cavity size dilation. I explained to him that he does not yet meet criteria for surgery and we will continue to monitor his functional status as well as evidence of further dilation of the LV cavity. He knows to contact one of us if symptoms develop. He is well educated regarding these issues. I will see him again in a year's time. Sincerely, Kris Crawford MD 09 30 PM - Kris Crawford MD mn Dictation ID: [id number] cc: Jayshree Gutierrez MD, [address] [address] * Kris Crawford MD - 05/03/2013 2130 EST This office note has been dictated. documented in this encounter Plan of Treatment Upcoming Encounters Date Type Department Care Team (Late st Contact Info) Description 08/24/2024 14:15 EDT Office Visit [facility] Rheumatology & Immunology - [address] [phone] Chantel Juan MD [address] [place], [place] [phone] documented as of this encounter Procedures Procedure Name Priority Date/Time Associated Diagnosis Comments CONGENITAL ECHOCARDIOGRAM Routine 05/15/2014 7:58 EST AI (aortic insufficiency) documented in this encounter Results * CONGENITAL ECHOCARDIOGRAM (05/15/2014 7:58 EST) Anatomical Region Laterality Modality Other 05/15/2014 7:58 EST Narrative 05/15/2014 8:15 EST *Interpreting Group:* *[facility]* [address] [place] [address] Date of study: 05/15/2014 *STUDY CONCLUSIONS* Impressions: ??Compared to the previous study, these findings represent slight increase in LV cavity dilatiion. Summary: 1. Left ventricle: The cavity size was moderately dilated. Wall thickness was ?? normal. Systolic function was normal. The estimated ejection fraction was ?? 55-60%. Wall motion was normal; there were no regional wall motion ?? abnormalities. 2. Aortic valve: Severe regurgitation. 3. Mitral valve: Mild regurgitation. 4. Right ventricle: The cavity size was normal. Wall thickness was normal. ?? Systolic function was normal. *PATIENT PRESENTATION* Height: ? 198.1cm (78in ) S/D Pressure: 152 / 72 Weight: ? 88.5kg (194.6lb ) BSA: ?2.2m^2 Test start time: ??07:20 AM. Test stop time: ??07:54 AM. REFERRING ?Jayshree Gutierrez ATTENDING ?Kris Crawford ORDERING ? Kris Crawford PERFORMING ?? Kris Crawford SHEET METAL CONTRACTOR ??Luis Fuller REFERRING ?Kris Crawford w *PROCEDURE DATA* Procedure information: ??This study was interpreted by [facility]. ??Study status: ??Routine. Transthoracic echocardiography. ??M-mode, complete 2D, complete spectral Doppler, and color Doppler. A Transthoracic Echocardiogram was performed. Scanning was performed from the parasternal, apical, subcostal, and suprasternal notch acoustic windows. Images were obtained using a Marciano [id number] 8 cardiac ultrasound machine. Image quality was adequate. ??Study completion: ??The patient tolerated the procedure well. *INDICATIONS AND HISTORY* Indications: ?? Aortic Valve Disorder (424.1). Labs, prior tests, procedures, and surgery: Transthoracic echocardiography (March 22, 2012). *CARDIAC ANATOMY* Left ventricle: ??The cavity size was moderately dilated. Wall thickness was normal. Systolic function was normal. The estimated ejection fraction was 55-60%. Wall motion was normal; there were no regional wall motion abnormalities. Aortic valve: ??possibly trileaflet; not clearly deliniated in this study. Mobility was not restricted. ??Doppler: ??Transvalvular velocity was within the normal range. There was no stenosis. ??Severe regurgitation. ?Mean gradient: 5mm Hg (S). Peak gradient: 8mm Hg (S). Aorta: ??Aortic root: The aortic root was normal in size. Mitral valve: ?? Structurally normal valve. ?? Mobility was not restricted. Doppler: ??Transvalvular velocity was within the normal range. There was no evidence for stenosis. ??Mild regurgitation. ?Peak gradient: 6.3mm Hg (D). Left atrium: ??The atrium was normal in size. Right ventricle: ??The cavity size was normal. Wall thickness was normal. Systolic function was normal. Pulmonic valve: ?Doppler: ??Transvalvular velocity was within the normal range. There was no evidence for stenosis. ??No regurgitation. Tricuspid valve: ?? Structurally normal valve. ?Doppler: ??Transvalvular velocity was within the normal range. There was no evidence for stenosis. ??No regurgitation. Pulmonary artery: ?Systolic pressure could not be accurately estimated. Right atrium: ??The atrium was normal in size. Pericardium: ??There was no pericardial effusion. Systemic veins: Inferior vena cava: The vessel was normal in size. *MEASUREMENT TABLES* 2D measurements ? Normal Left ventricle Area, ED, A4C ? 38.2 cm^2 ?? 17.7-47.3 Area, ES, A4C ? 19.4 cm^2 ?? 7.9-31.5 Fractional area change, A4C ? 49 % ?--------- Area, ED, A2C ? 43.5 cm^2 ?? --------- Area, ES, A2C ? 24.3 cm^2 ?? 8.9-28.1 Fractional area change, A2C ? 44 % ?33.7-69 Volume, ED, MOD, 1-plane ? 125 ml ? --------- Volume, ES, MOD, 1-plane ?50 ml ? --------- Ejection fraction, MOD, 1-plane ? 60 % ?--------- Stroke volume, MOD, 1-plane ? 75 ml ? --------- Volume index, ED, MOD, 1-plane ?57 ml/m^2 --------- Volume index, ES, MOD, 1-plane ?23 ml/m^2 --------- Stroke index, MOD, 1-plane ?34.1 ml/m^2 --------- Volume, ED, MOD, 2-plane ? 144 ml ? 62-170 Volume, ES, MOD, 2-plane ?60 ml ? --------- Ejection fraction, MOD, 2-plane ? 58 % ?--------- Stroke volume, MOD, 2-plane ? 84 ml ? --------- Volume index, ED, MOD, 2-plane ?65 ml/m^2 --------- Volume index, ES, MOD, 2-plane ?27 ml/m^2 --------- Stroke index, MOD, 2-plane ?38.2 ml/m^2 --------- LVOT Diameter, S ? 24 mm ? --------- Area ? 4.5 cm^2 ?? --------- Aortic valve Leaflet separation ?21 mm ? 15-26 Aorta Root diameter, ED ? 31 mm ? --------- Left atrium Anterior-posterior dimension ?39 mm ? --------- Anterior-posterior dimension index ?1.77 cm/m^2 <2.2 Superior-inferior dimension, A4C ?39 mm ? 29-53 ?? M-mode measurements ? Normal Left ventricle LV internal dimension, ED ?*65 mm ? 37-56 LV internal dimension, ES ? 43 mm ? --------- Fractional shortening ? 34 % ?29-45 LV posterior wall, ED ?8 mm ? 6-11 Septal/posterior wall ratio, ED ?1.1 ?--------- Relative wall thickness, ED ?0.2 ?<0.45 Volume, ED, Teichholz ?216 ml ? --------- Volume, ES, Teichholz ? 83.1 ml ? --------- Ejection fraction, Teichholz ? *61.5 % ?64-83 Volume index, ED, Teichholz ? 98 ml/m^2 --------- Volume index, ES, Teichholz ? 38 ml/m^2 --------- Wall mass ?230.9 g ?--------- Wall mass index ?104.9 g/m^2 ??--------- Mass/height ? 1.17 g/cm ?? --------- Ventricular septum Septal thickness, ED ? 9 mm ? --------- Aortic valve Leaflet separation ?21 mm ? 15-26 Aorta Root diameter, ED ? 32 mm ? 20-37 Left atrium Anterior-posterior dimension, ES ? *42 mm ? 19-40 Anterior-posterior dimension index, ES ??1.91 cm/m^2 <2.2 LA/aortic root ratio ?1.31 ?--------- ?? Doppler measurements ?Normal Left ventricle Ea, lateral annulus, tissue Doppler ? 7.35 cm/s ?? --------- E/Ea, lateral annulus, tissue Doppler ? 17 ?--------- Aortic valve Peak velocity, S ? 145 cm/s ?? --------- Mean velocity, S ?99 cm/s ?? --------- VTI, S ?37.3 cm ? --------- Mean gradient, S ? 5 mm Hg ??--------- Peak gradient, S ? 8 mm Hg ??--------- Regurgitant velocity, ED ? 431 cm/s ?? --------- Regurgitant deceleration ? 232 cm/s^2 --------- Regurgitant pressure half-time ? 559 ms ? --------- Regurgitant gradient, ED ?74.3 mm Hg ??--------- Mitral valve Peak E-wave velocity ? 125 cm/s ?? --------- Peak A-wave velocity ?59.2 cm/s ?? --------- Deceleration time ? *342 ms ? 150-230 Peak gradient, D ? 6.3 mm Hg ??--------- Peak E/A ratio ? 2.1 ?--------- Legend: Mean values are shown as u=mean value. Asterisk (*) stewart values outside specified normal range. I have personally reviewed the images and have reviewed and edited the reported findings. Electronically signed by Kris Crawford 05/15/2014 08:15 Procedure Note 05/15/2014 *Interpreting Group:* *[facility]* [address] [place] [address] Date of study: 05/15/2014 *STUDY CONCLUSIONS* Impressions: Compared to the previous study, these findings representslight increase in LV cavity dilatiion. Summary: 1. Left ventricle: The cavity size was moderately dilated. Wall thicknesswas normal. Systolic function was normal. The estimated ejection fractionwas 55-60%. Wall motion was normal; there were no regional wall motion abnormalities. 2. Aortic valve: Severe regurgitation. 3. Mitral valve: Mild regurgitation. 4. Right ventricle: The cavity size was normal. Wall thickness was normal. Systolic function was normal. *PATIENT PRESENTATION* Height: 198.1cm (78in ) S/D Pressure: 152 / 72 Weight: 88.5kg (194.6lb ) BSA: 2.2m^2 Test start time: 07:20 AM. Test stop time: 07:54 AM. REFERRING Jayshree Gutierrez ATTENDING Kris Crawford ORDERING Kris Crawford PERFORMING Kris Crawford SHEET METAL CONTRACTOR Luis Fuller REFERRING Kris Crawford w *PROCEDURE DATA* Procedure information: This study was interpreted by [facility]. Study status: Routine. Transthoracic echocardiography. M-mode, complete 2D, complete spectral Doppler, andcolor Doppler. A Transthoracic Echocardiogram was performed. Scanning wasperformed from the parasternal, apical, subcostal, and suprasternal notch acoustic windows. Images were obtained using a Marciano [id number] 8 cardiac ultrasoundmachine. Image quality was adequate. Study completion: The patient tolerated the procedure well. *INDICATIONS AND HISTORY* Indications: Aortic Valve Disorder (424.1). Labs, prior tests, procedures, and surgery: Transthoracic echocardiography (March 22, 2012). *CARDIAC ANATOMY* Left ventricle: The cavity size was moderately dilated. Wall thicknesswas normal. Systolic function was normal. The estimated ejection fraction was 55-60%. Wall motion was normal; there were no regional wall motion abnormalities. Aortic valve: possibly trileaflet; not clearly deliniated in this study. Mobility was not restricted. Doppler: Transvalvular velocity was withinthe normal range. There was no stenosis. Severe regurgitation. Meangradient: 5mm Hg (S). Peak gradient: 8mm Hg (S). Aorta: Aortic root: The aortic root was normal in size. Mitral valve: Structurally normal valve. Mobility was not restricted. Doppler: Transvalvular velocity was within the normal range. There was no evidence for stenosis. Mild regurgitation. Peak gradient: 6.3mm Hg(D). Left atrium: The atrium was normal in size. Right ventricle: The cavity size was normal. Wall thickness was normal. Systolic function was normal. Pulmonic valve: Doppler: Transvalvular velocity was within the normalrange. There was no evidence for stenosis. No regurgitation. Tricuspid valve: Structurally normal valve. Doppler: Transvalvular velocity was within the normal range. There was no evidence for stenosis.No regurgitation. Pulmonary artery: Systolic pressure could not be accurately estimated. Right atrium: The atrium was normal in size. Pericardium: There was no pericardial effusion. Systemic veins: Inferior vena cava: The vessel was normal in size. *MEASUREMENT TABLES* 2D measurements Normal Left ventricle Area, ED, A4C 38.2 cm^2 17.7-47.3 Area, ES, A4C 19.4 cm^2 7.9-31.5 Fractional area change, A4C 49 % --------- Area, ED, A2C 43.5 cm^2 --------- Area, ES, A2C 24.3 cm^2 8.9-28.1 Fractional area change, A2C 44 % 33.7-69 Volume, ED, MOD, 1-plane 125 ml --------- Volume, ES, MOD, 1-plane 50 ml --------- Ejection fraction, MOD, 1-plane 60 % --------- Stroke volume, MOD, 1-plane 75 ml --------- Volume index, ED, MOD, 1-plane 57 ml/m^2 --------- Volume index, ES, MOD, 1-plane 23 ml/m^2 --------- Stroke index, MOD, 1-plane 34.1 ml/m^2 --------- Volume, ED, MOD, 2-plane 144 ml 62-170 Volume, ES, MOD, 2-plane 60 ml --------- Ejection fraction, MOD, 2-plane 58 % --------- Stroke volume, MOD, 2-plane 84 ml --------- Volume index, ED, MOD, 2-plane 65 ml/m^2 --------- Volume index, ES, MOD, 2-plane 27 ml/m^2 --------- Stroke index, MOD, 2-plane 38.2 ml/m^2 --------- LVOT Diameter, S 24 mm --------- Area 4.5 cm^2 --------- Aortic valve Leaflet separation 21 mm 15-26 Aorta Root diameter, ED 31 mm --------- Left atrium Anterior-posterior dimension 39 mm --------- Anterior-posterior dimension index 1.77 cm/m^2 <2.2 Superior-inferior dimension, A4C 39 mm 29-53 M-mode measurements Normal Left ventricle LV internal dimension, ED *65 mm 37-56 LV internal dimension, ES 43 mm --------- Fractional shortening 34 % 29-45 LV posterior wall, ED 8 mm 6-11 Septal/posterior wall ratio, ED 1.1 --------- Relative wall thickness, ED 0.2 <0.45 Volume, ED, Teichholz 216 ml --------- Volume, ES, Teichholz 83.1 ml --------- Ejection fraction, Teichholz *61.5 % 64-83 Volume index, ED, Teichholz 98 ml/m^2 --------- Volume index, ES, Teichholz 38 ml/m^2 --------- Wall mass 230.9 g --------- Wall mass index 104.9 g/m^2 --------- Mass/height 1.17 g/cm --------- Ventricular septum Septal thickness, ED 9 mm --------- Aortic valve Leaflet separation 21 mm 15-26 Aorta Root diameter, ED 32 mm 20-37 Left atrium Anterior-posterior dimension, ES *42 mm 19-40 Anterior-posterior dimension index, ES 1.91 cm/m^2 <2.2 LA/aortic root ratio 1.31 --------- Doppler measurements Normal Left ventricle Ea, lateral annulus, tissue Doppler 7.35 cm/s --------- E/Ea, lateral annulus, tissue Doppler 17 --------- Aortic valve Peak velocity, S 145 cm/s --------- Mean velocity, S 99 cm/s --------- VTI, S 37.3 cm --------- Mean gradient, S 5 mm Hg --------- Peak gradient, S 8 mm Hg --------- Regurgitant velocity, ED 431 cm/s --------- Regurgitant deceleration 232 cm/s^2 --------- Regurgitant pressure half-time 559 ms --------- Regurgitant gradient, ED 74.3 mm Hg --------- Mitral valve Peak E-wave velocity 125 cm/s --------- Peak A-wave velocity 59.2 cm/s --------- Deceleration time *342 ms 150-230 Peak gradient, D 6.3 mm Hg --------- Peak E/A ratio 2.1 --------- Legend: Mean values are shown as u=mean value. Asterisk (*) stewart values outside specified normal range. I have personally reviewed the images and have reviewed and edited thereported findings. Electronically signed by Kris Crawford 05/15/2014 08:15 Kris Crawford MD CARDIAC ECHO ORDERABLES Fi nal Result documented in this encounter Visit Diagnoses Diagnosis AI (aortic insufficiency)- Primary Aortic valve disorders documented in this encounter Care Teams Telephone Answerer Relationship Specialty Start Date End Date Jayshree Gutierrez MD [address] [place] [phone] PCP - General 03/03/11 03/05/15 documented as of this encounter
--- OUTSIDE RECORDS SUMMARY | 2024-06-12 19:13 | XMS_ITS | Encounter Summary ---
Author Organization [facility] Address [address] [place] [address] Care Team Providers Care Vulcan Crewmember Name Role Phone Jayshree Gutierrez MD Primary Care Provider Encounter Details Date Type Department Care Team (Late st Contact Info) Description 11/06/2014 Results Only [facility] [phone] Pao Gupta, [place] [address] [place] [phone] Social History Tobacco Use Types Packs/Day Years [...] Info) Description 08/24/2024 14:15 EDT Office Visit [facility] Rheumatology & Immunology - [facility] [address] [place], [place] [phone] Chantel Juan MD [address] [place], [place] [phone] documented as of this encounter Procedures Procedure Name Priority Date/Time Associated Diagnosis Comments H. PYLORI ANTIGEN Routine 11/06/2014 10: 22 EDT documented in this encounter Results * HELICOBACTER PYLORI ANTIGEN, FECES (11/06/2014 10:22 EDT) H. pylori Ag, Feces Positive Negative 11/08/2014 6:44 EDT [facility] Comment: Performed by: [facility], [address], [place] [address], Mammography Supervisor: Adriane Tim, Ph.D. STOOL SPECIMEN / Unknown 11/06/2014 10:22 EDT 11/06/2014 10:22 EDT us Pao Gupta [place] MICROBIOLOGY - GENERAL ORDERABL ES Final Result [facility] [address] [place] [address] documented in this encounter Visit Diagnoses Not on filedocumented in this encounter Care Teams Vulcan Crewmember Relationship Specialty Start Date End Date Jayshree Gutierrez MD [address] [place] [phone] PCP - General 03/03/11 03/05/15 documented as of this encounter
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
--- OUTSIDE RECORDS SUMMARY | 2024-06-12 19:13 | XMS_ITS | Encounter Summary ---
Author Organization [facility] Address [address] [place] [address] Care Team Providers Care Creative Writing English Professor Name Role Phone Pao Gupta ND Primary Care Provider [phone] Encounter Details Date Type Department Care Team (Latest Contact Info) Description 04/12/2015 8:25 EDT - 04/12/2015 23:59 EDT Hospital Encounter [place] [address] [place] [address] Pao Gupat, [place] [address] [place] [phone] Discharge Disposition: Home or Self [...] as of this encounter Discharge Diagnoses Diagnosis Z01.89 Encounter for other specified special examinations-Z01.89[ICD-10-CM] documented in this encounter Discharge Disposition Disposition Code Departure Means Destination Home or Self [facility] documented in this encounter Plan of Treatment Upcoming Encounters Date Type Department Care Team (Late st Contact Info) Description 08/24/2024 14:15 EDT Office Visit [facility] Rheumatology & Immunology - [address] [address] Chantel Juan MD [address] [place], [place] [phone] documented as of this encounter Visit Diagnoses Not on filedocumented in this encounter Care Teams Creative Writing English Professor Relationship Specialty Start Date End Date Pao Gupta ND PCP - General 03/06/15 12/15/16 documented as of this encounter
--- OUTSIDE RECORDS SUMMARY | 2024-06-12 19:13 | XMS_ITS | Encounter Summary ---
Author Organization [facility] Address [address] [place] [address] Care Team Providers Care Ammunition Assembly Laborer Name Role Phone Jayshree Gutierrez MD Primary Care Provider Reason for Referral * Cardiology (Routine) - Closed Specialty Diagnoses / Procedures Referred By See hickman Referred To Contact Diagnoses Palpitations Procedures HOLTER MONITOR Pao Gupta ND Phone: tel: fax: Referral ID Status Reason Start Date Expiration Date Visits Re quested Visits Authorized [id number] Closed 08/26/2016 1 1 Encounter Details Date Type Department Care Team (Late st Contact Info) Description 02/26/2015 Orders Only [facility] Cardiology - [place] [address] [place], [place] [id number] Pao Gupta ND [address] [place] [id number] Palpitations (Primary Dx) Social History Tobacco Use Types [...] Info) Description 08/24/2024 14:15 EDT Office Visit [facility] Rheumatology & Immunology - [facility] [address] [place] [address] Chantel Juan MD [address] [place], [place] [phone] documented as of this encounter Results * HOLTER MONITOR (03/06/2015 9:08 EDT) 03/06/2015 9:08 EDT Narrative [facility] EKG - 03/07/2015 14:14 EDT ? [facility] ? Test Date: ?2015-03-06 Pat Name: ? FELICIANONIKOLE MOORE ?Department: ?? FA ? Room: ? Gender: ?Executive Asst: ?? [id number] : ?1980 ? Requested By: SANTIAGO Downey Order Number: [id number] ?Julieta FORRESTER: ?? NADJA SHAFER MD ? Interpretive Statements 24 hour holter Baseline Rhythm: sinus rhythm Average Hr: 65 Atrial Arrhythmia :rare pac's and atrial pairs Ventricular Arrhythmia: one pvc Longest R-R interval 1.8 sec Symptoms: rapid beats, correlates to single PAC otherwise normal holter monitor I reviewed the tracing and have either agreed or edited the findings in this report. Electronically Signed On 03-07-15 14:14:06 EDT by NADJA SHAFER MD. Procedure Note Nadja Shafer MD - 03/07/2015 [facility] Test Date: 2015-03-06 Pat Name: FELICIANO MOORE Department: FA Room: Gender: Executive Asst: [id number] : 1980 Requested By: SANTIAGO Downey Order Number: [id number] Reading MD: NADJA SHAFER MD Interpretive Statements 24 hour holter Baseline Rhythm: sinus rhythm Average Hr: 65 Atrial Arrhythmia :rare pac's and atrial pairs Ventricular Arrhythmia: one pvc Longest R-R interval 1.8 sec Symptoms: rapid beats, correlates to single PAC otherwise normal holter monitor I reviewed the tracing and have either agreed or edited the findings inthis report. Electronically Signed On 03-07-15 14:14:06 EDT by NADJA NIEVES. us Pao Gupta ND CARDIAC ECG ORDERABLES Final Re sult [facility] EKG documented in this encounter Visit Diagnoses Diagnosis Palpitations- Primary Palpitations- Primary documented in this encounter Care Teams Ammunition Assembly Laborer Relationship Specialty Start Date End Date Jayshree Gutierrez MD [address] [place] [phone] PCP - General 03/03/11 03/05/15 documented as of this encounter
--- OUTSIDE RECORDS SUMMARY | 2024-06-12 19:13 | XMS_ITS | Encounter Summary ---
Author Organization [facility] Address [address] [place] [address] Care Team Providers Care Oyster Washer Name Role Phone Pao Gupta ND Primary Care Provider [phone] Reason for Visit * Reason Onset Date Comments Follow-up 05/14/2015 echo to [facility] Encounter Details Date Type Department Care Team (Late st Contact Info) Description 05/14/2015 Telephone [facility] Cardiology - [address] [place], [place] [phone] Kris Crawford MD Follow-up (echo to [facility]) Social History Tobacco Use Types Packs/Day Years [...] Telephone Encounter - Eboni Lombardi RN - 05/14/[address] Jorge Rodriguez MD Commercial Real Estate Attorney Address: [address] [place] [id number] * Telephone Encounter - Eboni Lombardi RN - 05/14/2015 1024 EST Called pt- let him know mailed Echo disc and report on 05-14-15, called Dr Brown's office to alert them. Pt has FUR with Dr Crawford 06-04-15. Repeated for verification. No learning barriers identified. * Telephone Encounter - Wandy Kamara - 05/14/2015 0943 EST Reason for Call: Follow-up Summary/Symptoms: Pt calling checking to see if was able to send a copy of the Echo to [facility] and received feed back from Dr. Brown. Please call Wandy Kamara 05/14/2015 9:43 documented in this encounter Plan of Treatment Upcoming Encounters Date Type Department Care Team (Late st Contact Info) Description 08/24/2024 14:15 EDT Office Visit [facility] Rheumatology & Immunology - [facility] [address] [place], [place] [phone] Chantel Juan MD [address] [place], [place] [phone] documented as of this encounter Visit Diagnoses Not on filedocumented in this encounter Care Teams Oyster Washer Relationship Specialty Start Date End Date Pao Gupta ND PCP - General 03/06/15 12/15/16 documented as of this encounter
--- OUTSIDE RECORDS SUMMARY | 2024-06-12 19:13 | XMS_ITS | Encounter Summary ---
Author Organization [facility] Address [address] [place] [address] Care Team Providers Care Pizza Delivery Name Role Phone Jayshree Gutierrez MD Primary Care Provider Reason for Visit * Reason Onset Date Comments Appointment Related 04/24/2013 Encounter Details Date Type Department Care Team (Late st Contact Info) Description 04/24/2013 Telephone [facility] Cardiology - [place] [place] [address] Kris Crawford MD Appointment Related Social History [...] Telephone Encounter - Andie Stokes RN - 05/01/[address] Crawford, he attempted to call home number and then left message on 's cell. * Telephone Encounter - Andie Stokes RN - 04/26/2013 1445 EST Spoke with Cherri pt's . She states he is planning on cancelling appt for 05/02. Pt doesn't think he needs it and money is very tight. Offered help through pt assistance. She states he's being stubborn and asks if Dr. Crawford would call their home number on Wednesday during the day. Will pass on the request to Dr. Crawford * Telephone Encounter - Eboni Lombardi RN - 04/25/[address] Crawford, who states pt has severe aortic insufficiency and really needs the echo- wants pt assistance involved if necessary. LM for Veronica to call on direct line. * Telephone Encounter - Marilyn León - 04/24/2013 1318 EST Cherri states she would like to speak with Dr. Morse in regards to pt's Fur and Echo appt. She wanted to know if this is important for pt or it can be put off for next year as they have a high insurance deductible. Please call and discuss, thanks. documented in this encounter Plan of Treatment Upcoming Encounters Date Type Department Care Team (Late st Contact Info) Description 08/24/2024 14:15 EDT Office Visit [facility] Rheumatology & Immunology - [facility] [address] [place], [place] [phone] Chantel Juan MD [address] [place], [place] [address] documented as of this encounter Visit Diagnoses Not on filedocumented in this encounter Care Teams Pizza Delivery Relationship Specialty Start Date End Date Jayshree Gutierrez MD [address] [place] [phone] PCP - General 03/03/11 03/05/15 documented as of this encounter
--- OUTSIDE RECORDS SUMMARY | 2024-06-12 19:13 | XMS_ITS | Encounter Summary ---
Author Organization [facility] Address [address] [place] [address] Care Team Providers Care Floorman Name Role Phone Pao Gupta DARSHANA Primary Care Provider [phone] Encounter Details Date Type Department Care Team (Late st Contact Info) Description 05/13/2016 Orders Only [facility] Cardiology - [address] [place] [address] Andie Stokes, RN Social History Tobacco Use Types Packs/Day Years [...] Description 08/24/2024 14:15 EDT Office Visit [facility] Rheumatology & Immunology - [address] [address] Chantel Juan MD [address] [place], [place] [address] documented as of this encounter Visit Diagnoses Not on filedocumented in this encounter Care Teams Floorman Relationship Specialty Start Date End Date Pao Gupta ND PCP - General 03/06/15 12/15/16 documented as of this encounter
--- OUTSIDE RECORDS SUMMARY | 2024-06-12 19:13 | XMS_ITS | Encounter Summary ---
Author Organization [facility] Address [address] [place] [address] Care Team Providers Care Outside Plant Technician Name Role Phone Pao Gupta DARSHANA Primary Care Provider [phone] Reason for Referral * Cardiology (Routine) - Closed Specialty Diagnoses / Procedures Referred By See hickman Referred To Contact Diagnoses Nonrheumatic aortic valve insufficiency Procedures CONGENITAL ECHOCARDIOGRAM Kris Crawford MD Referral ID Status Reason Start Date Expiration Date Visits Re quested Visits Authorized [id number] Closed 05/12/2016 1 1 Reason for Visit * Reason Comments Other congenital aortic va lve, aortic insufficiency; had echo today Anxiety mental changes, feel s loopy at times Encounter Details Date Type Department Care Team (Latest Contact Info) Description 05/12/2016 8:00 EST Office Visit [facility] Cardiology [place] [address] [place] [address] Kris Crawford MD Nonrheumatic aortic valve insufficiency [...] Sign Reading Time Taken Comments Blood Pressure 126/76 05/12/2016 0756 EST Pulse 58 05/12/2016 0756 EST Temperature - - Respiratory Rate - - Oxygen Saturation 99% 05/12/2016 0756 EST Inhaled Oxygen Concentration - - Weight 90.7 kg (200 lb) 05/12/2016 0756 EST Height 198.1 cm (6' 6) 05/12/2016 0756 EST Body Mass Index 23.11 05/12/2016 0756 EST documented in this encounter Functional Status [...] 05/12/2016 7:57 EST documented in this encounter Progress Notes * Kris Crawford MD - 05/12/2016 1220 EST [facility] CARDIOLOGY PROGRESS / FOLLOWUP NOTE - 05/12/2016 Pao Garcia [facility] [address], [address] [place] [address] Problem List: 1. 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 2. Mild mitral regurgitation. 3. No aortopathy. Dear Pao, I had the pleasure of seeing Feliciano. I last saw him in the office in June 2014, and in the interim, he obtained a second opinion through me from Dr Rodriguez at the [facility] in [place], [place]. I reviewed his note, which was that Feliciano has severe asymptomatic aortic insufficiency with amost moderately dilated left ventricle and watchful waiting is the best approach and he will likelybe years away from surgery. Feliciano has derived benefit from seeing you for symptoms of anxiety and insomnia. He is doing some light meditation and teas and other extract, which he thinks have been beneficial. His exercise tolerance remains great and he is busy at work. He does still describe residual anxiety. He has had no exercise intolerance or other cardiovascular complaints. I personally reviewed his echocardiogram again today, which shows no change: Mildly dilated ventricle at 6.3 cm of which given his size and athletic history is not very dilated. Severe aortic centraljet of aortic insufficiency, mild mitral regurgitation, EF 65%. Review of Systems: As noted above. Current Medications: None. On physical examination, blood pressure 126/76, heart rate of 60. Skin is warm and dry. Neurologic:Grossly nonfocal. Musculoskeletal: Gait is steady. Psychiatric: Oriented x3. Respiratory: Lungs areclear. Cardiovascular: Normal S1, normal S2. There is no splitting of the S2. There is a faint 1/6 ejection murmur followed by a 2/6 diastolic murmur heard best at the left and right sternal borders,slightly lateral on the right side. No carotid bruits, no jugular venous distention. Distal pulses in all 4 extremities are +2 and equal. Gastrointestinal: Soft, nontender. Lower extremities: No edema. In summary, Henri is doing well with severe asymptomatic aortic insufficiency due to congenital heart disease with mild left ventricular dilation. Compared with his echo 2 years ago there is no significant change. The second opinion from Dr Rodriguez last year was reassuring to both myself and the patient. He still remains anxious about the condition. I congratulated him on his healthy lifestyle and I will see him again in a years' time with a repeat echocardiogram. Sincerely, Kris Crawford MD 08 25 AM - Kris rCawford MD cn Dictation ID: [id number] cc: Pao Gupta ID, [address], [place] [address] * Kris Crawford MD - 05/12/2016 0800 EST This office note has been dictated. documented in this encounter Plan of Treatment Upcoming Encounters Date Type Department Care Team (Late st Contact Info) Description 08/24/2024 14:15 EDT Office Visit [facility] Rheumatology [place] [address] Chantel Juan MD [address] [place] [address] documented as of this encounter Procedures Procedure Name Priority Date/Time Associated Diagnosis Comments CONGENITAL ECHOCARDIOGRAM Routine 05/18/2017 7:44 EST Nonrheumatic aortic valve insufficiency documented in this encounter Results * CONGENITAL ECHOCARDIOGRAM (05/18/2017 7:44 EST) Anatomical Region Laterality Modality Other 05/18/2017 7:44 EST Narrative 05/18/2017 8:21 EST *Interpreting Group:* *[facility]* [address] [place] [address] Date of study: 05/18/2017 Transthoracic Echocardiography M-mode, complete 2D, complete spectral [...] 2. Aortic valve: There was severe regurgitation. 3. Mitral valve: Mild thickening. There was mild regurgitation. 4. Right ventricle: The cavity size was normal. Wall thickness was ?? normal. Systolic function was normal. *PATIENT PRESENTATION* Height: ? 198.1cm ((78in) ) S/D Pressure: 142 / 65 Weight: ? 93.9kg ((206.6lb) ) BSA: ?2.27m^2 Test start time: ??07:23 AM. Test stop time: ??07:45 AM. ATTENDING ?Kris Crawford ORDERING ? Kris Crawford. PERFORMING ?? Kris Crawford REFERRING ?Pao Gupta Nd REFERRING ?Kris Crawford w HAIR BALER ??[address] *PROCEDURE DATA* Procedure information: ??This study was interpreted by [facility]. Pertinent images and digital data are archived for permanent storage and are available for subsequent review. Study status: ??Routine. Transthoracic echocardiography. ??M-mode, complete 2D, complete spectral Doppler, and color Doppler. A Transthoracic Echocardiogram was performed. Scanning was performed from the parasternal, apical, subcostal, and suprasternal notch acoustic windows. Images were obtained using a Marciano IE33 5 cardiac ultrasound machine. Image quality was adequate. [...] There was mild regurgitation. ?Peak gradient (D): 5mm Hg. Left atrium: ??The atrium was normal [...] was normal in size. Measurements Left ventricle ? Value ?05/12/2016 Reference LV ID, ED, PLAX ?5.8 ?? cm ? 3.5 - 6.0 LV ID, ES, PLAX ?(H) ? 4.2 ?? cm ? 2.1 - 4.0 LV PW thickness, ED, PLAX ?0.7 ?? cm ? LV end-diastolic volume, 1-p ? 155 ?? ml ? A2C LV ejection fraction, 1-p ?61 ?% ?68 ? A2C LV end-diastolic volume, 1-p ? 153 ?? ml ? A4C LV ejection fraction, 1-p ?65 ?% ?57 ? A4C LV IVRT, DP ?60 ?ms ? 53 ? 60 - 100 LV e', lateral ? 0.113 m/sec ??0.118 ? LV E/e', lateral ? 10 ? 11 ? LV e', medial ?0.079 m/sec ??0.099 ? LV E/e', medial ?14 ? 14 ? LV e', average ? 0.096 m/sec ??0.108 ? LV E/e', average ? 12 ? 12 ? Ventricular septum ? Value ?05/12/2016 Reference IVS thickness, ED, PLAX ?0.9 ?? cm ? Aortic valve ? Value ?05/12/2016 Reference Aortic regurg peak velocity ?4.93 ??m/sec ??4.99 ? Aortic regurg velocity, ED ? 4.7 ?? m/sec ??4.94 ? Aortic regurg deceleration ? 248 ?? cm/s^2 194 ? Aortic regurg pressure ? 589 ?? ms ? 765 ? half-time Aortic regurg peak gradient ?97.2 ??mm Hg ??99.6 ? Aortic regurg gradient, ED ? 88.4 ??mm Hg ??97.6 ? Aorta ?Value ?05/12/2016 Reference Aortic root ID ? 3.5 ?? cm ? 3.2 ? Ascending aorta ID, A-P ?2.8 ?? cm ? 3.4 ? Ascending aorta ID, A-P, S ? 2.8 ?? cm ? 3.4 ? Left atrium ?Value ?05/12/2016 Reference LA ID, A-P, ES ? 3.0 ?? cm ? 2.8 ? LA ID/bsa, A-P ? 1.3 ?? cm/m^2 1.3 ?<=2.2 LA ID, M-L, A4C ?(H) ? 5.8 ?? cm ? 6.4 ?2.9 - 4.9 LA area, ES, A4C ? 22.8 ??cm^2 ?? 21.4 ? 8.8 - 23.4 LA area, ES, A2C ? 18 ?cm^2 ?? 20 ? LA volume, S ? 49 ?ml ? 58 ? LA volume/bsa, S ? 22 ?ml/m^2 26 ? LA volume, ES, 1-p A4C ? 70 ?ml ? 50 ? LA volume/bsa, ES, 1-p A4C ? 31 ?ml/m^2 23 ? LA volume, ES, 2-p ? 59 ?ml ? 57 ? LA volume/bsa, ES, 2-p ? 26 ?ml/m^2 26 ? LA volume, ES, A/L ? 70 ?ml ? 50 ? LA volume/bsa, ES, A/L ? 31 ?ml/m^2 23 ? LA/aortic root ratio ? 0.86 ? 0.88 ? Mitral valve ? Value ?05/12/2016 Reference Mitral E-wave peak velocity ?1.12 ??m/sec ??1.34 ? Mitral A-wave peak velocity ?1 ? m/sec ??0.88 ? Mitral deceleration time ? (H) ? 306 ?? ms ? 239 ?150 - 230 Mitral peak gradient, D ?5 ? mm Hg ??7.2 ? Mitral E/A ratio, peak ? 1.1 ?1.5 ? Tricuspid valve ?Value ?05/12/2016 Reference Tricuspid regurg peak ?2.4 ?? m/sec ?? velocity Tricuspid peak RV-RA ? 22.3 ??mm Hg ?? gradient Tricuspid maximal regurg ? 2.36 ??m/sec ?? velocity, PISA Legend: (L) ??and ??(H) ??matthew values outside specified reference range. I have personally reviewed the images and have reviewed and edited the reported findings. Electronically signed by Kris Crawford 05/18/2017 08:21 Procedure Note Kris Crawford MD - 05/18/2017 *Interpreting Group:* *[facility]* [address] [place] [address] Date of study: 05/18/2017 Transthoracic Echocardiography M-mode, complete 2D, complete spectral [...] 2. Aortic valve: There was severe regurgitation. 3. Mitral valve: Mild thickening. There was mild regurgitation. 4. Right ventricle: The cavity size was normal. Wall thickness was normal. Systolic function was normal. *PATIENT PRESENTATION* Height: 198.1cm ((78in) ) S/D Pressure: 142 / 65 Weight: 93.9kg ((206.6lb) ) BSA: 2.27m^2 Test start time: 07:23 AM. Test stop time: 07:45 AM. ATTENDING Kris Crawford ORDERING Kris Crawford PERFORMING Kris Crawford REFERRING Pao Gupta Nd REFERRING Kris Crawford w HAIR BALER [address] *PROCEDURE DATA* Procedure information: This study was interpreted by [facility]. Pertinent images and digital data are archived for permanent storage and are available for subsequent review. Study status: Routine. Transthoracic echocardiography. M-mode, complete 2D, complete spectral Doppler, and color Doppler. A Transthoracic Echocardiogram was performed. Scanning was performed from the parasternal, apical, subcostal, and suprasternal notch acoustic windows. Images were obtained using a Marciano IE33 5 cardiac ultrasound machine. Image quality was adequate. [...] There was mild regurgitation. Peak gradient (D): 5mm Hg. Left atrium: The atrium was normal [...] normal in size. Measurements Left ventricle Value 05/12/2016 Reference LV ID, ED, PLAX 5.8 cm 3.5 - 6.0 LV ID, ES, PLAX (H) 4.2 cm 2.1 - 4.0 LV PW thickness, ED, PLAX 0.7 cm LV end-diastolic volume, 1-p 155 ml A2C LV ejection fraction, 1-p 61 % 68 A2C LV end-diastolic volume, 1-p 153 ml A4C LV ejection fraction, 1-p 65 % 57 A4C LV IVRT, DP 60 ms 53 60 - 100 LV e', lateral 0.113 m/sec 0.118 LV E/e', lateral 10 11 LV e', medial 0.079 m/sec 0.099 LV E/e', medial 14 14 LV e', average 0.096 m/sec 0.108 LV E/e', average 12 12 Ventricular septum Value 05/12/2016 Reference IVS thickness, ED, PLAX 0.9 cm Aortic valve Value 05/12/2016 Reference Aortic regurg peak velocity 4.93 m/sec 4.99 Aortic regurg velocity, ED 4.7 m/sec 4.94 Aortic regurg deceleration 248 cm/s^2 194 Aortic regurg pressure 589 ms 765 half-time Aortic regurg peak gradient 97.2 mm Hg 99.6 Aortic regurg gradient, ED 88.4 mm Hg 97.6 Aorta Value 05/12/2016 Reference Aortic root ID 3.5 cm 3.2 Ascending aorta ID, A-P 2.8 cm 3.4 Ascending aorta ID, A-P, S 2.8 cm 3.4 Left atrium Value 05/12/2016 Reference LA ID, A-P, ES 3.0 cm 2.8 LA ID/bsa, A-P 1.3 cm/m^2 1.3 <=2.2 LA ID, M-L, A4C (H) 5.8 cm 6.4 2.9 - 4.9 LA area, ES, A4C 22.8 cm^2 21.4 8.8 - 23.4 LA area, ES, A2C 18 cm^2 20 LA volume, S 49 ml 58 LA volume/bsa, S 22 ml/m^2 26 LA volume, ES, 1-p A4C 70 ml 50 LA volume/bsa, ES, 1-p A4C 31 ml/m^2 23 LA volume, ES, 2-p 59 ml 57 LA volume/bsa, ES, 2-p 26 ml/m^2 26 LA volume, ES, A/L 70 ml 50 LA volume/bsa, ES, A/L 31 ml/m^2 23 LA/aortic root ratio 0.86 0.88 Mitral valve Value 05/12/2016 Reference Mitral E-wave peak velocity 1.12 m/sec 1.34 Mitral A-wave peak velocity 1 m/sec 0.88 Mitral deceleration time (H) 306 ms 239 150 - 230 Mitral peak gradient, D 5 mm Hg 7.2 Mitral E/A ratio, peak 1.1 1.5 Tricuspid valve Value 05/12/2016 Reference Tricuspid regurg peak 2.4 m/sec velocity Tricuspid peak RV-RA 22.3 mm Hg gradient Tricuspid maximal regurg 2.36 m/sec velocity, PISA Legend: (L) and (H) matthew values outside specified reference range. I have personally reviewed the images and have reviewed and edited the reported findings. Electronically signed by Kris Crawford 05/18/2017 08:21 us Kris Crawford MD CARDIAC ECHO ORDERABLES Fi nal Result documented in this encounter Visit Diagnoses Diagnosis Nonrheumatic aortic valve insufficiency- Primary Aortic valve disorders documented in this encounter Care Teams Outside Plant Technician Relationship Specialty Start Date End Date Pao Gupta ND PCP - General 03/06/15 12/15/16 documented as of this encounter
--- OUTSIDE RECORDS SUMMARY | 2024-06-12 19:13 | XMS_ITS | Encounter Summary ---
Author Organization [facility] Address [address] [place] [address] Care Team Providers Care Ad Operations Intern Name Role Phone Jayshree Gutierrez MD Primary Care Provider Encounter Details Date Type Department Care Team (Late st Contact Info) Description 10/23/2014 Results Only [facility] [phone] Jayshree Gutierrez MD [address] [place] [address] [phone] Social History Tobacco Use Types Packs/Day Years [facility] [address], [place] [phone] Chantel Juan MD [address] [place], [place] [phone] documented as of this encounter Procedures Procedure Name Priority Date/Time Associated Diagnosis Comments C. DIFFICILE PCR Routine 10/23/2014 14:2 2 EDT GIARDIA AND CRYPTOSPORIDIUM ANTIGENS Routine 10/23/2014 14:22 EDT OVA/PARASITE EXAM Routine 10/23/2014 14: 22 EDT BACTERIAL CULTURE, FECES Routine 10/23/2014 12:22 EDT THYROID CASCADE Routine 10/23/2014 10:16 EDT HELICOBACTER PYLORI IGG ANTIBODY Routine 10/23/2014 10:16 EDT COMPLETE BLOOD COUNT AND DIFFERENTIAL Routine 10/23/2014 10:16 EDT HIV 1/2 ANTIGEN AND ANTIBODY, 4TH GENERATION Routine 10/23/2014 10:16 EDT LIPASE Routine 10/23/2014 10:16 EDT COMPREHENSIVE METABOLIC PANEL (CMP) Routine 10/23/2014 10:16 EDT documented in this encounter Results * C. DIFFICILE MOLECULAR DETECTION (10/23/2014 14:22 EDT) Result Negative for C.difficile toxin by PCR. Presumptive negative for 027, NAP1, BI strain. 10/23/2014 21:27 EDT [facility] STOOL SPECIMEN / Unknown 10/23/2014 14:22 EDT 10/23/2014 17:51 EDT us Jayshree Gutierrez MD MICROBIOLOGY - GENERAL ORDERABLES Final Result [facility] [address] [place] [address] * OVA/PARASITE EXAM (10/23/2014 14:22 EDT) Result No ova and parasites seen. (If Cryptosporidium, Cyclospora, or Microsporidium are suspected, specific tests must be requested.) Single negative specimen does not rule out the possibility of a parasitic infection. 10/24/2014 13:48 EDT [facility] STOOL SPECIMEN / Unknown 10/23/2014 14:22 EDT 10/23/2014 17:49 EDT Jayshree Gutierrez MD MICROBIOLOGY - GENERAL ORDERABLES Final Result Performing Organization Address City/[facility]/ZIP Co de Phone Number [facility] [address] [place] [address] * GIARDIA & CRYPTOSPORIDIUM ANTIGENS (10/23/2014 14:22 EDT) Result No Giardia or Cryptosporidium antigen detected. 10/24/2014 13:52 EDT [facility] STOOL SPECIMEN / Unknown 10/23/2014 14:22 EDT 10/23/2014 17:49 EDT Jayshree Gutierrez MD MICROBIOLOGY - GENERAL ORDERABLES Final Result Performing Organization Address [facility] Co de Phone Number [facility] [address] [place] [address] * BACTERIAL CULTURE, FECES (10/23/2014 12:22 EDT) Result Negative for Shiga toxins 1 and 2. 10/26/2014 12:06 EDT [facility] Result No Salmonella, Shigella, Campylobacter , Yersinia, or E. coli O157:H7 isolated 10/26/2014 12:06 EDT [facility] STOOL SPECIMEN / Unknown 10/23/2014 12:22 EDT 10/24/2014 13:44 EDT Comment:CaryBlair vial submi tted Jayshree Gutierrez MD MICROBIOLOGY - GENERAL ORDERABLES Final Result Performing Organization Address [facility] Co de Phone Number [facility] [address] [place] [address] * THYROID CASCADE (10/23/2014 10:16 EDT) TSH 0.98 0.35 - 5.00 uIU/ml 10/23/2014 16:02 EDT [facility] Comment: TSH cascade is not recommended for patients in which pituitary or hypothalamic disorders are suspected. BLOOD SPECIMEN / Unknown 10/23/2014 10:16 EDT 10/23/2014 14:29 EDT Jayshree Gutierrez MD CHEMISTRY & BLOOD GAS O RDERABLES Final Result [facility] [address] [place] [address] * LIPASE (10/23/2014 10:16 EDT) Lipase 52 <251 U/L 10/23/2014 15:41 EDT [facility] BLOOD SPECIMEN / Unknown 10/23/2014 10:16 EDT 10/23/2014 14:29 EDT Jayshree Gutierrez MD CHEMISTRY & BLOOD GAS O RDERABLES Final Result Performing Organization Address [facility]/ZIP Co de Phone Number [facility] [address] [place] [address] * HELICOBACTER PYLORI IGG ANTIBODY (10/23/2014 10:16 EDT) H. Pylori IgG Ab Positive 10/24/2014 13:19 EDT [facility] Comment:Assayed utilizing [employer] system. BLOOD SPECIMEN / Unknown 10/23/2014 10:16 EDT 10/23/2014 14:29 EDT Jayshree Gutierrez MD CHEMISTRY & BLOOD GAS O RDERABLES Final Result Performing Organization Address City/[facility] Co de Phone Number [facility] [address] [place] [address] * HIV 1/2 ANTIBODY (10/23/2014 10:16 EDT) HIV 1/2 Antibody Negative 10/25/19 13:24 EDT [facility] Comment: If acute HIV-1 infection is suspected in a high risk patient, submit plasma specimen for HIV-1 RNA quantification test. Reference Range: ??Negative Assayed utilizing [employer] chemiluminescent technology. BLOOD SPECIMEN / Unknown 10/23/2014 10:16 EDT 10/23/2014 14:29 EDT us Jayshree Gutierrez MD IMMUNOLOGY AND SEROLOGY ORDERABLES Final Result [facility] [address] [place] [address] * COMPREHENSIVE METABOLIC PANEL (CMP) (10/23/2014 10:16 EDT) Potassium 4.5 3.5 - 5.0 mEq/L 10/23/2014 15:41 [facility] Sodium 140 136 - 145 mEq/L 10/23/2014 15:41 [facility] Chloride 102 96 - 110 mEq/L 10/23/2014 15:41 [facility] CO2 29 24 - 32 mEq/L 10/23/2014 15:41 [facility] Total Alkaline Phosphatase 51 38 - 126 U/L 10/23/2014 15:41 [facility] Bilirubin, Total 0.9 <1.4 mg/dl 10/24/19 15 15:41 [facility] AST 28 15 - 46 U/L 10/23/2014 15:41 [facility] ALT 34 21 - 72 U/L 10/23/2014 15:41 [facility] Albumin 4.1 3.4 - 4.9 g/dl 10/23/2014 15:41 [facility] Total Protein 6.8 6.5 - 8.3 g/dl 10/23/2014 15:41 [facility] Creatinine 0.91 0.66 - 1.25 mg/dl 10/23/2014 15:41 [facility] GFR, Calculated >60 >60 ml/min/1.7 3m2 10/23/2014 15:41 [facility] BUN 17 10 - 26 mg/dl 10/23/2014 15:41 [facility] Calcium 9.2 8.5 - 10.5 mg/dl 10/23/2014 15:41 [facility] Calculated Calcium 9.5 8.5 - 10.5 mg/dl 10/23/2014 15:41 [facility] Glucose, Serum 98 70 - 100 mg/dl 10/23/2014 15:41 [facility] Fasting? No 10/23/2014 10:19 [facility] BLOOD SPECIMEN / Unknown 10/23/2014 10:16 EDT 10/23/2014 14:29 EDT us Jayshree Gutierrez MD CHEMISTRY & BLOOD GAS O RDERABLES Final Result [facility] [address] [place] [address] * (ABNORMAL) HEMAGRAM AND DIFFERENTIAL (10/23/2014 10:16 EDT) WBC 3.57(L) 4.0 - 10.4 K/cmm 10/23/2014 15:35 [facility] RBC 4.68 4.36 - 5.78 M/cmm 10/23/2014 15:35 [facility] Hemoglobin 14.9 13.8 - 17.3 gm/dl 10/23/2014 15:35 [facility] HCT 42.8 39.5 - 50.2 % 10/23/2014 15:35 [facility] MCV 91 81 - 95 fl 10/23/2014 15:35 [facility] MCH 31.7 27.6 - 33.0 pg 10/23/2014 15:35 [facility] MCHC 34.7 32.8 - 36.4 gm/dl 10/23/2014 15:35 [facility] RDW-CV 13.3 11.8 - 14.1 % 10/23/2014 15:35 [facility] RDW-SD 41.6 36.5 - 45.9 fl 10/23/2014 15:35 [facility] PLT 183 141 - 320 K/cmm 10/23/2014 15:35 [facility] MPV 9.1 7.5 - 11.2 fl 10/23/2014 15:35 [facility] Neutrophils 63.0 45.5 - 79.7 % 10/23/2014 16:51 [facility] Lymphocytes 21.0 15.0 - 46.8 % 10/23/2014 16:51 [facility] % Atyp Lymphs 9.0 % 10/23/2014 16:51 [facility] Monocytes 6.0 1.8 - 12.0 % 10/23/2014 16:51 [facility] Eosinophils 1.0 0.6 - 6.9 % 10/23/2014 16:51 [facility] ABS Neutrophils 2.25 2.20 - 8.85 K/cmm 10/23/2014 16:51 [facility] ABS Lymphs 0.75(L) 1.09 - 3.30 K/cmm 10/23/2014 16:51 [facility] ABS Atyp Lymphs 0.32 K/cmm 5 16:51 [facility] ABS Monocytes 0.21 0.1 - 0.8 K/cmm 10/23/2014 16:51 [facility] ABS Eosinophils 0.04 0.03 - 0.61 K/cmm 10/23/2014 16:51 [facility] Large Platelets Present 5 16:51 [facility] Type of Diff: Manual 10/23/2014 16:51 [facility] BLOOD SPECIMEN / Unknown 10/23/2014 10:16 EDT 10/23/2014 14:29 EDT us Jayshree Gutierrez MD PACKAGES & DNA PROBE OR DERABLES Final Result [facility] [address] [place] [address] documented in this encounter Visit Diagnoses Not on filedocumented in this encounter Care Teams Ad Operations Intern Relationship Specialty Start Date End Date Jayshree Gutierrez MD [address] [place] [address] [phone] PCP - General 03/03/11 03/05/15 documented as of this encounter
--- OUTSIDE RECORDS SUMMARY | 2024-06-12 19:13 | XMS_ITS | Encounter Summary ---
Author Organization [facility] Address [address] [place] [address] Care Team Providers Care Trailer Technician Name Role Phone Pao Gupta DARSHANA Primary Care Provider [phone] Reason for Visit * Reason Comments Cardiac Testing Encounter Details Date Type Department Care Team (Late st Contact Info) Description 05/12/2016 7:15 EST Procedure visit [facility] Cardiology [place] [address] [place] [address] Kris Crawford MD Echo, [place] Social History Tobacco Use Types Packs/Day Years [...] documented in this encounter Discharge Diagnoses Diagnosis I35.1 Nonrheumatic aortic (valve) insufficiency-I35.1[ICD-10-CM] documented in this encounter Plan of Treatment Upcoming Encounters Date Type Department Care Team (Late st Contact Info) Description 08/24/2024 14:15 EDT Office Visit [facility] Rheumatology & Immunology - [address] [phone] Chantel Juan MD [address] [place] [phone] documented as of this encounter Visit Diagnoses Not on filedocumented in this encounter Care Teams Trailer Technician Relationship Specialty Start Date End Date Pao Gupta ND PCP - General 03/06/15 12/15/16 documented as of this encounter
--- OUTSIDE RECORDS SUMMARY | 2024-06-12 19:13 | XMS_ITS | Encounter Summary ---
Author Organization [facility] Address [address] [place] [address] Care Team Providers Care Ham Smoker Name Role Phone Jayshree Gutierrez MD Primary Care Provider Pao Gupta ND Primary Care Provider [phone] Reason for Visit * Reason Onset Date Comments Prior Auth, Other (i.e. radiology, etc.) 015 Echo Encounter Details Date Type Department Care Team (Late st Contact Info) Description 02/25/2015 Telephone [facility] Cardiology - [place] [address] Kris Crawford MD Prior Auth, Other (i.e. radiology, etc.) (Echo) Social History Tobacco Use Types Packs/Day Years [...] encounter Miscellaneous Notes * Telephone Encounter - Elizabeth Kruger - 02/25/2015 0851 EDT Patient called to set up his Echo to be coordinated with his Dr. Crawford appointment on April 09.Let Feliciano know once we have obtained prior authorization we will be calling him to set up his Echo. documented in this encounter Plan of Treatment Upcoming Encounters Date Type Department Care Team (Late st Contact Info) Description 08/24/2024 14:15 EDT Office Visit [facility] Rheumatology & Immunology - [address] [address] Chantel Juan MD [address] [place] [phone] documented as of this encounter Visit Diagnoses Not on filedocumented in this encounter Care Teams Ham Smoker Relationship Specialty Start Date End Date Jayshree Gutierrez MD [address] [place] [address] [phone] PCP - General 03/03/11 03/05/15 Pao Gupta ND [address] [place] [address] [phone] PCP - General 03/06/15 12/15/16 documented as of this encounter
--- OUTSIDE RECORDS SUMMARY | 2024-06-12 19:13 | XMS_ITS | Encounter Summary ---
Author Organization [facility] Address [address] [place] [address] Care Team Providers Care Customer Experience Associate Name Role Phone Jayshree Gutierrez MD Primary Care Provider Reason for Referral * Referral (Routine/Next Available) - Specialty Report Received Specialty Diagnoses / Procedures Referred By See hickman Referred To Contact Cardiology Diagnoses Congenital heart disease Kris Crawford MD Referral ID Status Reason Start Date Expiration Date Visits Requested Visits Authorized [id number] Specialty Report Received Second Opinion 06/26/2014 1 1 Question Answer Reason for Request: congenital abnormal aortic valve/ second opinion Comments Consult to Dr. Phani Rodriguez at [facility] in [place], [place] Reason for Visit * Reason Onset Date Comments Referral Request 06/22/2014 [facility] Encounter Details Date Type Department Care Team (Late st Contact Info) Description 06/22/2014 Telephone [facility] Cardiology - [address] [place], [place] [phone] Kris Crawford MD Referral Request ([facility]) Social History Tobacco Use Types [...] Telephone Encounter - Andie Stokes RN - 06/27/[address] Crawford- pt may not want to go to [facility] for referral. Dr. Crawford to update us once plan is figured out. audra Webb, aware and will put referral on hold for now. Calendar reminder for 07/03/14 to check with next week re:plan * Telephone Encounter - Andie Stokes RN - 06/26/2014 1356 EST Seen in clinic by Dr. Crawford on 06/26/14- referring to Dr. Phani Rodriguez, cardiology at [facility]. Per Dr. Crawford, he will need to have echo there, not sending disc. Letter dictated as well. Need to send ekg and records to [place]. * Telephone Encounter - Eboni Lombardi RN - 06/22/2014 1306 EST Will discuss with Dr Yvette Larosnday 06/26 in clinic. LM That we will discuss with Dr Yvette Larson then return their call. * Telephone Encounter - Barbara Gutiérrez - 06/22/2014 1203 EST Pt's called to ask office refer pt to the [facility] Cardiology for a second opinion. Requested call back. documented in this encounter Plan of Treatment Upcoming Encounters Date Type Department Care Team (Late st Contact Info) Description 08/24/2024 14:15 EDT Office Visit [facility] Rheumatology & Immunology - [facility] [address] [place], [place] [phone] Chantel Juan MD [address] [place], [place] [phone] Scheduled Referrals Name Type Priority Associated Diagnoses Order Schedule AMB CONS/FOLLOW UP CARDIOLOGY Outpatient Referral Routine Congenital Heart Disease Ordered: 06/26/2014 documented as of this encounter Visit Diagnoses Diagnosis Congenital heart disease- Primary Unspecified congenital anomaly of heart documented in this encounter Care Teams Customer Experience Associate Relationship Specialty Start Date End Date Jayshree Guiterrez MD [address] [place] [address] [phone] PCP - General 03/03/11 03/05/15 documented as of this encounter
--- OUTSIDE RECORDS SUMMARY | 2024-06-12 19:13 | XMS_ITS | Encounter Summary ---
Author Organization [facility] Address [address] [place] [address] Care Team Providers Care Director Of Quantitative Research Name Role Phone Pao Gupta ND Primary Care Provider [phone] Encounter Details Date Type Department Care Team (Latest Contact Info) Description 03/06/2015 8:35 EDT - 03/06/2015 23:59 EDT Hospital Encounter [address] [address] Pao Gupta, [place] [address] [place] [phone] Discharge Disposition: Home or Self [...] Code Departure Means Destination Home or Self Senior Care documented in this encounter Plan of Treatment Upcoming Encounters Date Type Department Care Team (Late st Contact Info) Description 08/24/2024 14:15 EDT Office Visit [facility] Rheumatology & Immunology [address] [phone] Chantel Juan MD [address] [place], [place] [address] documented as of this encounter Procedures Procedure Name Priority Date/Time Associated Diagnosis Comments PROCEDURE REPORTS - SCANNED 03/08/2015 12:00 EDT ORDERS - SCANNED 03/08/2015 12:00 EDT documented in this encounter Results * ORDERS - SCANNED (03/08/2015 12:00 EDT) 03/08/2015 12:0 0 EDT us Scan 2 Electric Motor Fitter ADMISSION ORDERABLES Final Result * PROCEDURE REPORTS - SCANNED (03/08/2015 12:00 EDT) 03/08/2015 12:0 0 EDT us Scan 2 Electric Motor Fitter PROCEDURE/MINOR SURGICAL OR DERABLES Final Result documented in this encounter Visit Diagnoses Not on filedocumented in this encounter Care Teams Director Of Quantitative Research Relationship Specialty Start Date End Date Pao Gupta ND PCP - General 03/06/15 12/15/16 documented as of this encounter
--- OUTSIDE RECORDS SUMMARY | 2024-06-12 19:13 | XMS_ITS | Encounter Summary ---
Author Organization [facility] Address [address] [place] [address] Care Team Providers Care Income Tax Consultant Name Role Phone Jayshree Gutierrez MD Primary Care Provider Reason for Visit * Reason Comments Other aortic valve followu p Cardiac Testing echo done today Encounter Details Date Type Department Care Team (Late st Contact Info) Description 05/15/2014 8:20 EST Office Visit [facility] Cardiology - [address] [place], [place] [phone] Kris Crawford MD Congenital heart disease (Primary Dx); AI (aortic insufficiency) Social History Tobacco Use Types Packs/Day Years [...] Sign Reading Time Taken Comments Blood Pressure 128/60 05/15/2014 0803 EST Pulse 53 05/15/2014 0803 EST Temperature - - Respiratory Rate - - Oxygen Saturation 100% 05/15/2014 0803 EST Inhaled Oxygen Concentration - - Weight 89.8 kg (198 lb) 05/15/2014 0803 EST Height 198.1 cm (6' 6) 05/15/2014 0803 EST Body Mass Index 22.88 05/15/2014 0803 EST documented in this encounter Discharge Diagnoses Diagnosis 746.9 CONGEN HEART ANOMALY NOS[ICD-9-CM] 424.1 AORTIC VALVE DISORDER[ICD-9-CM] documented in this encounter Progress Notes * Kris Crawford MD - 05/18/20148 EST [facility] CARDIOLOGY PROGRESS / FOLLOWUP NOTE - 05/15/2014 Jayshree Gutierrez MD [address] [address] Problem List: 1. 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 2. Mild mitral regurgitation. 3. No aortopathy. Dear Jayshree, I had the pleasure of seeing Feliciano in 1-year followup in conjunction with a repeat echocardiogram.I reviewed his echocardiogram personally which again shows a congenitally abnormal but not clearly bicuspid aortic valve with a central jet of severe aortic insufficiency with resultant mild LV cavity dilation. His LV measurements again are essentially unchanged dating back to 2010 with some [id number] variation in measurement. The ventricle has ranged during that time between 6.2 and 6.5 cm, currently measuring 6.5 cm, unchanged from the measurement obtained in 2011. Diastolic measurement has remained between 4.5 and 4.3 cm since 2010, today it was to 4.3 cm. From a functional standpoint, he is doing quite well with all kinds of physical activity including completing building his own house, mountain biking, and back country cross-country skiing with really no cardiopulmonary complaints whatsoever. He is well educated regarding endocarditis risk and is diligent with maintaining tooth care. Current medications are none. Review of systems negative for any cardiovascular problems. On physical exam, his blood pressure is 128/60, heart rate of 53. He weighs 198 pounds. He is 78 inches tall. Skin is warm and dry. Neurologic: Grossly nonfocal. Musculoskeletal: Gait is steady. Psychiatric: Oriented x3. Respiratory: Lungs are clear in all jacobo. Cardiovascular: Normal S1, normal S 2. There is a soft 2/6 early systolic murmur followed by a fairly faint prolonged 2/6 diastolic murmur heard best at the left sternal border. Pulses are somewhat water hammer. Gastrointestinal: Soft,nontender, scaphoid, no masses. Lower extremities do not show edema. Distal pulses are intact in all 4 extremities. In summary, Feliciano has severe aortic insufficiency with a mildly dilated ventricle and again no evidence of significant progression. We know at some point he will require aortic valve surgery either due to development of progressive LV dilation, LV dysfunction, or development of symptoms. He is well aware of the things to call us for, particularly decrease in exercise tolerance and dyspnea on exertion. He knows not to engage in heavy competitive physical activity, but he will continue moderate activity. I will see him again in a year's time in conjunction with an echocardiogram the same day. Sincerely, Kris Crawford MD 06 29 PM - Kris Crawford MD cn Dictation ID: [id number] cc: Jayshree Gutierrez MD, [address] [address] * Kris Crawford MD - 05/18/2014 1829 EST This office note has been dictated. documented in this encounter Plan of Treatment Upcoming Encounters Date Type Department Care Team (Late st Contact Info) Description 08/24/2024 14:15 EDT Office Visit [facility] Rheumatology & Immunology - [address] [phone] Chantel Juan MD [address] [place] [phone] documented as of this encounter Visit Diagnoses Diagnosis Congenital heart disease- Primary Unspecified congenital anomaly of heart AI (aortic insufficiency) Aortic valve disorders documented in this encounter Care Teams Income Tax Consultant Relationship Specialty Start Date End Date Jayshree Gutierrez MD [address] [place] [phone] PCP - General 03/03/11 03/05/15 documented as of this encounter
--- OUTSIDE RECORDS SUMMARY | 2024-06-12 19:13 | XMS_ITS | Encounter Summary ---
Author Organization [facility] Address [address] [place] [address] Care Team Providers Care Coat Agent Name Role Phone Jayshree Gutierrez MD Primary Care Provider Encounter Details Date Type Department Care Team (Late st Contact Info) Description 10/23/2014 20:48 EDT - 10/23/2014 20:49 EDT Hospital Encounter [address] [address] Jayshree Gutierrez MD [address] [place] [phone] Discharge Disposition: Home or Self Care Social [...] as of this encounter Discharge Diagnoses Diagnosis 789.00 ABDOMINAL PAIN UNSPEC SITE[ICD-9-CM] documented in this encounter Discharge Disposition Disposition Code Departure Means Destination Home or Self Care documented in this encounter Plan of Treatment Upcoming Encounters Date Type Department Care Team (Late st Contact Info) Description 08/24/2024 14:15 EDT Office Visit [facility] Rheumatology & Immunology - Main [address] [phone] Chantel Juan MD [address] [place] [address] documented as of this encounter Visit Diagnoses Not on filedocumented in this encounter Care Teams Coat Agent Relationship Specialty Start Date End Date Jayshree Gutierrez MD [address] [place] [phone] PCP - General 03/03/11 03/05/15 documented as of this encounter
--- OUTSIDE RECORDS SUMMARY | 2024-06-12 19:13 | XMS_ITS | Encounter Summary ---
Author Organization [facility] Address [address] [place] [address] Care Team Providers Care Preparer Making Department Name Role Phone Pao Gupta ND Primary Care Provider [phone] Reason for Visit * Reason Onset Date Comments Other 05/14/2015 aortic insuffici ency Encounter Details Date Type Department Care Team (Late st Contact Info) Description 05/14/2015 Orders Only [facility] Cardiology - [address] [place] [address] Eboni Lombardi RN Aortic valve insufficiency, etiology of cardiac valve disease unspecified (Primary Dx) Social History Tobacco Use Types [facility] - [facility] [address] [place], [place] [address] Chantel Juan MD [address] [place], [place] [phone] documented as of this encounter Visit Diagnoses Diagnosis Aortic valve insufficiency, etiology of cardiac valve disease unspecified- Primary documented in this encounter Care Teams Preparer Making Department Relationship Specialty Start Date End Date Pao Gupta ND PCP - General 03/06/15 12/15/16 documented as of this encounter
--- OUTSIDE RECORDS SUMMARY | 2024-06-12 19:13 | XMS_ITS | Encounter Summary ---
Author Organization [facility] Address [address] [place] [address] Care Team Providers Care Pest Control Specialist Name Role Phone Jayshree Gutierrez MD Primary Care Provider Reason for Visit * Reason Comments Other aortic valve followu p Chest Pressure some tightness and p ressure in chest area Irregular Heart Beat on and off Encounter Details Date Type Department Care Team (Late st Contact Info) Description 06/26/2014 10:20 EST Office Visit [facility] Cardiology - [address] [place], [place] [phone] Kris Crawford MD Chest pain (Primary Dx) Social History Tobacco Use Types [...] Sign Reading Time Taken Comments Blood Pressure 160/70 06/26/2014 1031 EST Pulse 60 06/26/2014 1031 EST Temperature - - Respiratory Rate - - Oxygen Saturation 100% 06/26/2014 1031 EST Inhaled Oxygen Concentration - - Weight 88.5 kg (195 lb) 06/26/2014 1031 EST Height 198.1 cm (6' 6) 06/26/2014 1031 EST Body Mass Index 22.53 06/26/2014 1031 EST documented in this encounter Progress Notes * Kris Crawford MD - 07/02/20142025 EST [facility] CARDIOLOGY PROGRESS / FOLLOWUP NOTE - 06/26/2014 Jayshree Gutierrez MD [address] [address] Problem List: 1. 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 2. Mild mitral regurgitation. 3. No aortopathy. Dear Akhil, I had the pleasure of seeing Feliciano accompanied by his significant other. I recently saw him in early May with an echocardiogram, and fortunately his mild LV dilation was unchanged, and as you know, he is well over 6 feet tall and we take that into consideration. His mother had a mitral valve repair at the [facility], I believe in [place], and asked about a 2nd opinion at that facility and that led to a larger discussion about where would be a good place to get a 2nd opinion. He is feeling much more nervous lately since his mother's surgery with some minortwingy chest pains which do not interfere with his physical activity, and some occasional palpitations which are brief and lasting a second or 2. He has had no exercise intolerance or any other symptoms, and he himself states that he thinks it is all anxiety. We had a 15-minute discussion about getting a 2nd opinion, and I told him that frankly I did not think the [facility] in [place] was the right place to go for what he is looking for. We talked aboutpossibly going to the [facility] or the [facility] in [place]. Another option would be a local 2nd opinion, and I gave him some names during the visit and over the phone afterwards. On physical exam, a limited physical only was performed today. Blood pressure 160/70, heart rate of60, O2 saturation 100%. The patient weighs 195 pounds and is 78 inches tall. Skin is warm and dry. Neurologic grossly nonfocal. Musculoskeletal: Gait is steady. Psychiatric: Oriented x3. In summary, I left him with a series of choices as to where to get the 2nd opinion, namely [facility], [facility], or possibly a local option here in [place]. The patient or his significant other will call back and let me know, and at that point, we will go ahead and make the referral. This was a 20-minute evaluation, over 20 minutes of which was spent in advice and counseling. Sincerely, Kris Crawford MD 04 54 PM - Kris Crawford MD cn Dictation ID: [id number] cc: Jayshree Gutierrez MD, [address] [address] * Kris Crawford MD - 07/02/2014 1654 EST This office note has been dictated. documented in this encounter Plan of Treatment Upcoming Encounters Date Type Department Care Team (Late st Contact Info) Description 08/24/2024 14:15 EDT Office Visit [facility] Rheumatology & [place] [address] Chantel Juan MD [address] [place], [place] [phone] documented as of this encounter Procedures Procedure Name Priority Date/Time Associated Diagnosis Comments ECG REPORT - SCANNED 07/02/2014 11:23 EST EKG 12-LEAD Routine 06/26/2014 10:42 EST Chest pain documented in this encounter Results * ECG REPORT - SCANNED (07/02/2014 11:23 EST) 07/02/2014 11:2 3 EST us Scan 2 Travel Pta PROCEDURE/MINOR SURGICAL OR DERABLES Final Result * EKG 12-LEAD (06/26/2014 10:42 EST) 06/26/2014 10:4 2 EST Narrative [facility] EKG - 06/28/2014 15:08 EST ? [facility] ? Test Date: ?2014-06-26 Pat Name: ? FELICIANO MOORE ?Department: ?? Gabriela Card ? Room: ? Gender: ? M ?Adjunct Art History Instructor: ?? [id number] : ?1980 ? Requested By: KRIS CRAWFORD MD Order Number: [id number] ?Reading MD: ?? SAM MORSE MD ? Measurements Intervals ?[place] ? Rate: ? 52 ? P: ?50 SD: ? 156 ?QRS: ?67 QRSD: ? 102 ?T: ?61 QT: ? 413 ? QTc: ?385 ? Interpretive Statements SINUS BRADYCARDIA POSSIBLE LEFT VENTRICULAR HYPERTROPHY Compared to ECG 03/22/2012 09:12:07 No significant changes I reviewed the tracing and have either agreed or edited the findings in this report. Electronically Signed On 06-28-14 15:08:21 EST by SAM MORSE MD. Procedure Note Sam Morse MD - 06/28/2014 [facility] Test Date: 2014-06-26 Pat Name: FELICIANO MOORE Department: Gabriela Andino Room: Gender: Adjunct Art History Instructor: [id number] : 1980 Requested By: KRIS CRAWFORD MD Order Number: [id number] Reading MD: SAM MORSE MD Measurements Intervals [place] Rate: 52 P: 50 SD: 156 QRS: 67 QRSD: 102 T: 61 QT: 413 QTc: 385 Interpretive Statements SINUS BRADYCARDIA POSSIBLE LEFT VENTRICULAR HYPERTROPHY Compared to ECG 03/22/2012 09:12:07 No significant changes I reviewed the tracing and have either agreed or edited the findings inthis report. Electronically Signed On 06-28-14 15:08:21 EST by SAM GONZALEZ. us Kris Crawford MD CARDIAC ECG ORDERABLES Fin al Result [facility] EKG documented in this encounter Visit Diagnoses Diagnosis Chest pain- Primary Chest pain, unspecified documented in this encounter Care Teams Pest Control Specialist Relationship Specialty Start Date End Date Jayshree Gutierrez MD [address] [place] [phone] PCP - General 9/20/11 9/22/15 documented as of this encounter
--- OUTSIDE RECORDS SUMMARY | 2024-06-12 19:13 | XMS_ITS | Encounter Summary ---
Author Organization [facility] Address [address] [place] [address] Care Team Providers Care Associate Professor Of Library Science Name Role Phone Pao Gupta ND Primary Care Provider [phone] Encounter Details Date Type Department Care Team (Late st Contact Info) Description 03/12/2016 Results Only [facility] [phone] Pao Gupta, ND [address] [place] [phone] Social History Tobacco Use Types Packs/Day Years [...] Description 08/24/2024 14:15 EDT Office Visit [facility] Rheumatology & Immunology - [facility] [address] [place], [place] [address] Chantel Juan MD [address] [place], [place] [phone] documented as of this encounter Procedures Procedure Name Priority Date/Time Associated Diagnosis Comments H. PYLORI ANTIGEN Routine 03/12/2016 9:10 EDT documented in this encounter Results * H. PYLORI STOOL ANTIGEN (03/12/2016 9:10 EDT) H. pylori Antigen Negative Negative 03/17/2016 13:48 EDT [facility] Comment:The following result s were obtained with the [employer] BRYN. STOOL SPECIMEN / Unknown 03/12/2016 9:10 EDT 03/12/2016 10:55 EDT us Pao Gupta ND MICROBIOLOGY - GENERAL ORDERABL ES Final Result [facility] [address] [place] [address] documented in this encounter Visit Diagnoses Not on filedocumented in this encounter Care Teams Associate Professor Of Library Science Relationship Specialty Start Date End Date Pao Gupta ND PCP - General 03/06/15 12/15/16 documented as of this encounter
--- OUTSIDE RECORDS SUMMARY | 2024-06-12 19:13 | XMS_ITS | Encounter Summary ---
Author Organization [facility] Address [address] [place] [address] Care Team Providers Care Internal Communications Intern Name Role Phone Pao Gupta ND Primary Care Provider [phone] Encounter Details Date Type Department Care Team (Latest Contact Info) Description 04/27/2016 5:05 EST - 04/27/2016 5:06 EST Hospital Encounter [address] [address] Pao Gupta, DARSHANA [address] [place] [phone] Discharge Disposition: Home or Self [...] as of this encounter Discharge Diagnoses Diagnosis Z13.0 Encounter for screening for diseases of the blood and blood-forming organs and certain disorders involving the immune mechanism-Z13.0[ICD-10-CM] Z13.1 Encounter for screening for diabetes mellitus-Z13.1[ICD-10-CM] Z13.29 Encounter for screening for other suspected endocrine disorder-Z13.29[ICD-10-CM] Z00.00 Encounter for general adult medical examination without abnormal findings-Z00.00[ICD-10-CM] documented in this encounter Discharge Disposition Disposition Code Departure Means Destination Home or Self Care documented in this encounter Plan of Treatment Upcoming Encounters Date Type Department Care Team (Late st Contact Info) Description 08/24/2024 14:15 EDT Office Visit [facility] Rheumatology & Immunology - [address] [phone] Chantel Juan MD [address] [place] [phone] documented as of this encounter Visit Diagnoses Not on filedocumented in this encounter Care Teams Internal Communications Intern Relationship Specialty Start Date End Date Pao Gupta ND PCP - General 03/06/15 12/15/16 documented as of this encounter
--- OUTSIDE RECORDS SUMMARY | 2024-06-12 19:13 | XMS_ITS | Encounter Summary ---
Author Organization [facility] Address [address] [place] [address] Care Team Providers Care Director Of Occupational Therapy Name Role Phone Pao Gupta ND Primary Care Provider [phone] Encounter Details Date Type Department Care Team (Late st Contact Info) Description 04/27/2016 Results Only [facility] [phone] Pao Gupta, ND [address] [place] [phone] Social History Tobacco Use Types Packs/Day Years [...] Info) Description 08/24/2024 14:15 EDT Office Visit [facility] Rheumatology & Immunology - [facility] [address] [place], [place] [phone] Chantel Juan MD [address] [place], [place] [phone] documented as of this encounter Procedures Procedure Name Priority Date/Time Associated Diagnosis Comments COMPLETE BLOOD COUNT AND DIFFERENTIAL Routine 04/27/2016 11:45 EST HEMOGLOBIN A1C Routine 04/27/2016 11:45 EST LIPID PROFILE (INCLUDES CHOLESTEROL, TRIGLYCERIDES, HDL, LDL) Routine 04/27/2016 11:45 EST COMPREHENSIVE METABOLIC PANEL (CMP) Routine 04/27/2016 11:45 EST documented in this encounter Results * LIPID PROFILE (INCLUDES CHOLESTEROL, TRIGLYCERIDES, HDL, LDL) (04/27/2016 11:45 EST) Cholesterol 180 mg/dl 04/27/2016 22:10 [facility] Comment: Desirable:<200 Borderline High:200-239 High:>ps=338 Triglycerides 74 mg/dl 04/27/2016 22:10 [facility] Comment: Normal:<150 Borderline High:150-199 High:200-499 Very High:>yl=868 HDL 70 mg/dl 04/27/2016 22:10 [facility] Comment: Low:<40 Normal:40-60 Desirable: >60 LDL, Calculated 95 mg/dl 6 22:10 [facility] Comment: Optimal:<100 Near Optimal:100-129 Borderline High:130-159 High:160-189 Very High:>up=736 Chol/HDL Ratio 2.6 04/27/2016 22:10 [facility] Fasting? Unknown 04/27/2016 20:16 [facility] Non HDL Cholesterol 110 mg/dl 04/27/2016 22:10 [facility] Comment: Desirable:<130 Borderline:130-159 High: 160-189 Very High: >np=337 BLOOD SPECIMEN / Unknown 04/27/2016 11:45 EST 04/27/2016 20:15 EST us Pao Gupta ND CHEMISTRY & BLOOD GAS ORDERABLE S Final Result [facility] [address] [place] [address] * HEMOGLOBIN A1C (04/27/2016 11:45 EST) Hemoglobin A1C 5.4 % 04/28/2016 9:48 [facility] Comment: Reference Range: <5.7% Normal 5.7-6.4% Increased risk for diabetes =>6.5% Diagnostic for diabetes (if confirmed) The A1c goal for non adults in general is <7%. The A1c goal for selected patients may be significantly lower than 7% if this can be achieved without significant hypoglycemia or other adverse effects of treatment. Est Avg Glucose 108 mg/dl 6 9:48 [facility] Comment: eAG represents the A1c result expressed as average glucose in mg/dl. BLOOD SPECIMEN / Unknown 04/27/2016 11:45 EST 04/27/2016 20:15 EST us Pao Gupta ND CHEMISTRY & BLOOD GAS ORDERABLE S Final Result Performing Organization Address City/State/[facility] Co de Phone Number [facility] [address] [place] [address] * COMPREHENSIVE METABOLIC PANEL (CMP) (04/27/2016 11:45 EST) Potassium 4.3 3.5 - 5.0 mEq/L 04/27/2016 22:10 [facility] Sodium 138 136 - 145 mEq/L 04/27/2016 22:10 [facility] Chloride 99 96 - 110 mEq/L 04/27/2016 22:10 [facility] CO2 29 22 - 32 mEq/L 04/27/2016 22:10 [facility] Comment:Note new reference r kwadwo 03/31/16 Total Alkaline Phosphatase 48 38 - 126 U/L 04/27/2016 22:10 [facility] Bilirubin, Total <0.5 <1.4 mg/dl 04/27/20 16 22:10 [facility] AST 34 15 - 46 U/L 04/27/2016 22:10 [facility] ALT 33 21 - 72 U/L 04/27/2016 22:10 [facility] Albumin 4.2 3.4 - 4.9 g/dl 04/27/2016 22:10 [facility] Total Protein 7.3 6.3 - 8.2 g/dl 04/27/2016 22:10 [facility] Creatinine 0.83 0.66 - 1.25 mg/dl 04/27/2016 22:10 [facility] GFR, Calculated 113 >60 ml/min/1.7 3m2 04/27/2016 22:10 [facility] Comment: eGFR calculated using CKD-EPI equation for non Americans. Multiply eGFR by 1.16 for Americans. BUN 19 10 - 26 mg/dl 04/27/2016 22:10 [facility] Calcium 9.3 8.5 - 10.5 mg/dl 04/27/2016 22:10 [facility] Calculated Calcium 9.1 8.5 - 10.5 mg/dl 04/27/2016 22:10 [facility] Comment: Note new formula for calculation in use 03/18/2016 Glucose, Serum 86 70 - 100 mg/dl 04/27/2016 22:10 [facility] Fasting? Unknown 04/27/2016 20:16 [facility] BLOOD SPECIMEN / Unknown 04/27/2016 11:45 EST 04/27/2016 20:15 EST us Pao Gupta ND CHEMISTRY & BLOOD GAS ORDERABLE S Final Result [facility] [address] [place] [address] * HEMAGRAM AND DIFFERENTIAL (04/27/2016 11:45 EST) WBC 4.50 4.0 - 10.4 K/cmm 04/27/2016 21:15 [facility] RBC 4.57 4.36 - 5.78 M/cmm 04/27/2016 21:15 [facility] Hemoglobin 14.4 13.8 - 17.3 gm/dl 04/27/2016 21:15 [facility] HCT 40.8 39.5 - 50.2 % 04/27/2016 21:15 [facility] MCV 89 81 - 95 fl 04/27/2016 21:15 [facility] MCH 31.5 27.6 - 33.0 pg 04/27/2016 21:15 [facility] MCHC 35.3 32.8 - 36.4 gm/dl 04/27/2016 21:15 [facility] RDW-CV 12.0 11.8 - 14.1 % 04/27/2016 21:15 [facility] RDW-SD 39.4 36.5 - 45.9 fl 04/27/2016 21:15 [facility] PLT 229 141 - 377 K/cmm 04/27/2016 21:15 [facility] MPV 10.3 9.5 - 12.7 fl 04/27/2016 21:15 [facility] % Neutrophils 51.5 % 04/27/2016 21:15 [facility] % Lymphocytes 36.7 % 04/27/2016 21:15 [facility] % Monocytes 8.7 % 04/27/2016 21:15 [facility] % Eosinophils 2.0 % 04/27/2016 21:15 [facility] % Basophils 0.9 % 04/27/2016 21:15 [facility] % Immature Grans 0.2 % 04/27/2016 21:15 [facility] ABS Neutrophils 2.32 2.20 - 8.85 K/cmm 04/27/2016 21:15 [facility] ABS Lymphs 1.65 1.09 - 3.30 K/cmm 04/27/2016 21:15 [facility] ABS Monocytes 0.39 0.1 - 0.8 K/cmm 04/27/2016 21:15 [facility] ABS Eosinophils 0.09 0.03 - 0.61 K/cmm 04/27/2016 21:15 [facility] ABS Basophils 0.04 0.01 - 0.11 K/cmm 04/27/2016 21:15 [facility] ABS Immature Grans 0.01 0 - 0.06 K/cmm 04/27/2016 21:15 EST [facility] Type of Diff: Automated 04/27/2016 21:15 EST [facility] BLOOD SPECIMEN / Unknown 04/27/2016 11:45 EST 04/27/2016 20:15 EST us Pao Gupta ND PACKAGES & DNA PROBE ORDERABLES Final Result [facility] [address] [place] [address] documented in this encounter Visit Diagnoses Not on filedocumented in this encounter Care Teams Director Of Occupational Therapy Relationship Specialty Start Date End Date Pao Gupta ND PCP - General 03/06/15 12/15/16 documented as of this encounter
--- OUTSIDE RECORDS SUMMARY | 2024-06-12 19:13 | XMS_ITS | Encounter Summary ---
Author Organization [facility] Address [address] [place] [address] Care Team Providers Care Telesales Representative Name Role Phone Jayshree Gutierrez MD Primary Care Provider Reason for Visit * Reason Comments Cardiac Testing Encounter Details Date Type Department Care Team (Late st Contact Info) Description 05/15/2014 7:15 EST Procedure visit [facility] Cardiology - [place] [address] [address] [place], [place] [phone] Kris Crawford MD Echo, Gabriela Social History [...] as of this encounter Discharge Diagnoses Diagnosis 424.1 AORTIC VALVE DISORDER[ICD-9-CM] documented in this encounter Plan of Treatment Upcoming Encounters Date Type Department Care Team (Late st Contact Info) Description 08/24/2024 14:15 EDT Office Visit [facility] Rheumatology & Immunology - [facility] [address] [place], [place] [phone] Chantel Juan MD [address] [place], [place] [phone] documented as of this encounter Visit Diagnoses Not on filedocumented in this encounter Care Teams Telesales Representative Relationship Specialty Start Date End Date Jayshree Gutierrez MD [address] [place] [phone] PCP - General 03/03/11 03/05/15 documented as of this encounter
--- OUTSIDE RECORDS SUMMARY | 2024-06-12 19:13 | XMS_ITS | Encounter Summary ---
Author Organization [facility] Address [address] [place] [address] Care Team Providers Care Materials And Processes Manager Name Role Phone Pao Gupta ND Primary Care Provider [phone] Reason for Visit * Reason Comments Cardiac Testing Encounter Details Date Type Department Care Team (Latest Contact Info) Description 03/06/2015 8:30 EDT Procedure visit [facility] Cardiology [address] [id number] Holter, McHv Palpitations (Primary Dx) Social History Tobacco Use [...] [facility] Rheumatology & Immunology [address] [id number] Chantel Juan MD [address] [place], [place] [address] documented as of this encounter Procedures Procedure Name Priority Date/Time Associated Diagnosis Comments HOLTER MONITOR Routine 03/06/2015 9:08 EDT Palpitations documented in this encounter Results * HOLTER MONITOR (03/06/2015 9:08 EDT) 03/06/2015 9:08 EDT Narrative [facility] EKG - 03/07/2015 14:14 EDT ? [facility] ? Test Date: ?2015-03-06 Pat Name: ? FELICIANO MOORE ?Department: ?? FA ? Room: ? Gender: ?Business Excellence Leader: ?? [id number] : ?1980 ? Requested By: SANTIAGO Downey Order Number: [id number] ?Reading : ?? NADJA SHAFER MD ? Interpretive Statements [...] Note Nadja Shafer MD - 03/07/2015 [facility] Test Date: 2015-03-06 Pat Name: FELICIANO MOORE Department: FA Room: Gender: Business Excellence Leader: [id number] : 1980 Requested By: SANTIAGO Downey Order Number: [id number] Reading MD: NADJA SHAFER MD Interpretive Statements [...] ND CARDIAC ECG ORDERABLES Final Re sult [facility] EKG documented in this encounter Visit Diagnoses Diagnosis Palpitations- Primary documented in this encounter Care Teams Materials And Processes Manager Relationship Specialty Start Date End Date Pao Gupta ND PCP - General 03/06/15 12/15/16 documented as of this encounter
--- OUTSIDE RECORDS SUMMARY | 2024-06-12 19:14 | XMS_ITS | Encounter Summary ---
Author Organization [facility] Address [address] [place] [address] Care Team Providers Care Coke Handling Supervisor Name Role Phone Jayshree Gutierrez MD Primary Care Provider Reason for Visit * Reason Comments Follow-up aortic valve Cardiac Testing echo today Encounter Details Date Type Department Care Team (Late st Contact Info) Description 03/22/2012 9:00 EDT Office Visit [facility] Cardiology - [address] [place], [place] [phone] Kris Crawford MD Aortic valve disorders (Primary Dx) Social History Tobacco Use Types Packs/Day Years Used Date Smoking Tobacco: Former Cigarettes Q uit: 03/03/2003 Smokeless Tobacco: Never Alcohol Use Standard Drinks/Week Comments Yes 10 (1 standard drink = 0.6 oz pu re alcohol) Sex and Gender Information Value Date Recorded Sex Assigned at Not on file Legal Sex Male 18:38 EST Gender Identity Not on file Sexual Orientation Not on file documented as of this encounter Last Filed Vital Signs Vital Sign Reading Time Taken Comments Blood Pressure 150/60 03/22/2012 0858 EDT Pulse 69 03/22/2012 0858 EDT Temperature - - Respiratory Rate - - Oxygen Saturation - - Inhaled Oxygen Concentration - - Weight 89.8 kg (198 lb) 03/22/2012 0858 EDT Height 198.1 cm (6' 6) 03/22/2012 0858 EDT Body Mass Index 22.88 03/22/2012 0858 EDT documented in this encounter Patient Instructions * Patient Instructions* Kris Crawford MD - 03/22/2012 9:43 EDT 1. Heart size is unchanged at 6.3 cm 2. Aortic insufficiency is very tiny bit worse by one measurement but not by others. It is in the severe range 3. Mitral valve only has a mild leak 4. Recheck in one year documented in this encounter Progress Notes * Kris Crawford MD - 03/22/2012 1103 EDT RE: NAME: FELICIANO MOORE : 1980 PROGRESS/FOLLOWUP NOTE - 03/22/2012 Jayshree Gutierrez MD [address] [address] Problem List: 1. Severe aortic insufficiency. a. Mildly dilated left ventricle, unchanged from 1 year ago. 2. Mild mitral regurgitation with thickened leaflets. 3. No evidence of aortopathy. Dear Akhil: I had the pleasure of seeing Feliciano in followup. 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 I reviewed his echocardiogram personally and I spent about 25 to 30 minutes reviewing the results with he and his , along with discussion of eventual AVR. It shows no change in his mildly dilated left ventricle at 6.3 to 6.4 cm and diastolic. His end systolic dimension remains unchanged as well at 4.3. There is severe aortic insufficiency with flow reversal in the descending aorta. His aorta appears normal in size. 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 The mitral valve also was thickened with just mild mitral regurgitation. The aorta is normal in caliber. Medications: None. Review of Systems: No decrease in exercise tolerance, no chest pain, PND, orthopnea, presyncope or syncope. On physical exam, he is a tall, lanky individual with a blood pressure of 150/60, heart rate of 69,198 pounds. Skin is warm and dry. Neurologic grossly nonfocal. Musculoskeletal: Gait is steady. Respiratory: Lungs are clear in all jacobo. Neck: No thyromegaly or adenopathy. Lung exam: Lungs are clear. Cardiac exam: Normal S1, S2 is single. There is a soft 2/6 early systolic ejection-type murmur followed by a 2/6 prolonged diastolic murmur grade 2/6, which I can hear focally at the left sternalborder. His pulses are somewhat water hammer. Gastrointestinal: Abdomen is nontender, no pulsatile mass. Lower extremities: No edema. Distal pulses in all four extremities are +2 and equal bilaterally without delays. EKG personally reviewed by me shows sinus bradycardia at a rate of 50 with early repolarization pattern. Echo as noted above. In summary, Feliciano has no change in his ventricular size in the setting of severe aortic insufficiency. By Doppler criteria the valve does look just a slight bit worse, but his ventricular size is unchanged. I explained to him that indications for surgery would be development of symptoms, reduction in ejection fraction below 50% or significant dilation. Historically measures have included a ventricle over 7 to 7.5 cm at end diastole. If we see progressive dilation, that would be a trigger for surgery. Giovanny bernal briefly discussed what type of valve he would get, i.e. mechanical versus bioprosthetic, but it is a bit preliminary for those discussions. In general, he would probably require a mechanical valve. He is aware that he needs to call me if he develops any symptoms. Otherwise, I will see him again in a year with a repeat echo. Sincerely, Electronically Signed by Kris Crawford MD 03/25/2012 13:17 Kris Crawford MD - Kris Crawford MD - JV Job ID: SM Doc ID: [id number] Ext Doc ID: [id number] cc: Jayshree Gutierrez MD * Kris Crawford MD - 03/22/2012 0951 EDT This office note has been dictated. documented in this encounter Procedure Notes * WREATH MACHINE TENDER, SCAN 2 - 03/25/2012 1247 EDTAssociated Order(s): ECG REPORT - SCANNED documented in this encounter Plan of Treatment Upcoming Encounters Date Type Department Care Team (Late st Contact Info) Description 08/24/2024 14:15 EDT Office Visit [facility] Rheumatology & Immunology - [facility] [address], [place] [phone] Chantel Juan MD [address] [place], [place] [phone] Scheduled Orders Name Type Priority Associated Diagnoses Orde r Schedule EKG 12-LEAD ECG Routine Aortic Valve Disorders Ordered: 03/22/2012 documented as of this encounter Procedures Procedure Name Priority Date/Time Associated Diagnosis Comments CONGENITAL ECHOCARDIOGRAM 05/02/2013 7:24 EST ECG REPORT - SCANNED 03/25/2012 12:47 EDT documented in this encounter Results * CONGENITAL ECHOCARDIOGRAM (05/02/2013 7:24 EST) Anatomical Region Laterality Modality Other 05/02/2013 7:24 EST Narrative 05/02/2013 8:46 EST *Interpreting Group:* *[facility]* [address] [place] [address] *STUDY CONCLUSIONS* Summary: 1. Left ventricle: The cavity size was mildly dilated. Wall thickness was ?? normal. Systolic function was normal. The estimated ejection fraction was ?? 60-65%. Wall motion was normal; there were no regional wall motion ?? abnormalities. 2. 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 thickened leaflets. Severe regurgitation. 3. Aortic root: The aortic root was normal in size. 4. Mitral valve: Mild to moderate regurgitation. 5. Left atrium: The atrium was mildly dilated. *PATIENT PRESENTATION* Height: ? 198.1cm (78in ) S/D Pressure: 141 / 67 Weight: ? 83.9kg (184.6lb ) BSA: ?2.14m^2 Test start time: ??07:15 AM. Test stop time: ??07:59 AM. REFERRING ?Jayshree Gutierrez ATTENDING ?Kris Crawford ORDERING ? Kris Crawford PERFORMING ?? Kris Crawford NURSING TECHNICIAN ??Ivett Jasso RN,[facility] NURSING TECHNICIAN ??Casey Floyd *PROCEDURE DATA* Procedure information: ??This study was interpreted by [facility]. ??Study status: ??Routine. Transthoracic echocardiography. ??M-mode, complete 2D, complete spectral Doppler, and color Doppler. A Transthoracic Echocardiogram was performed. Scanning was performed from the parasternal, apical, subcostal, and suprasternal notch acoustic windows. Images were obtained using a Marciano [id number] 8 cardiac ultrasound machine. Image quality was good. ??Study completion: ??The patient tolerated the procedure well. *INDICATIONS AND HISTORY* Indications: ?? Aortic Valve Disorder (424.0). Labs, prior tests, procedures, and surgery: Transthoracic echocardiography (March 22, 2012). *CARDIAC ANATOMY* Left ventricle: ??The cavity size was mildly dilated. Wall thickness was normal. Systolic function was normal. The estimated ejection fraction was 60-65%. Wall motion was normal; there were no regional wall motion abnormalities. 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 Mobility was not restricted. ??Doppler: ??Transvalvular velocity was within the normal range. There was no stenosis. ??Severe regurgitation. Aorta: ??Aortic root: The aortic root was normal in size. Mitral valve: ?? Mildly thickened leaflets. . Mobility was not restricted. Doppler: ??Transvalvular velocity was within the normal range. There was no evidence for stenosis. ??Mild to moderate regurgitation. ?Peak gradient: 7mm Hg (D). Left atrium: ??The atrium was mildly dilated. Right ventricle: ??The cavity size was normal. Wall thickness was normal. Systolic function was normal. Pulmonic valve: ?Doppler: ??Transvalvular velocity was within the normal range. There was no evidence for stenosis. ??No regurgitation. Tricuspid valve: ?? Structurally normal valve. ?Doppler: ??Transvalvular velocity was within the normal range. There was no evidence for stenosis. ??No regurgitation. Pulmonary artery: ?? Pulmonary systolic pressure was within the normal range. Right atrium: ??The atrium was normal in size. Pericardium: ??There was no pericardial effusion. Systemic veins: Inferior vena cava: The vessel was normal in size. *MEASUREMENT TABLES* 2D measurements ? Normal Left ventricle Area, ED, A4C ? 42.8 cm^2 ?? 17.7-47.3 Area, ES, A4C ? 25.7 cm^2 ?? 7.9-31.5 Fractional area change, A4C ? 40 % ?--------- Area, ED, A2C ? 48.3 cm^2 ?? --------- Area, ES, A2C ? 23.9 cm^2 ?? 8.9-28.1 Fractional area change, A2C ? 51 % ?33.7- 69 Volume, ED, MOD, 1-plane ? 134 ml ? --------- Volume, ES, MOD, 1-plane ?60 ml ? --------- Ejection fraction, MOD, 1-plane ? 55 % ?--------- Stroke volume, MOD, 1-plane ? 73 ml ? --------- Volume index, ED, MOD, 1-plane ?63 ml/m^2 --------- Volume index, ES, MOD, 1-plane ?28 ml/m^2 --------- Stroke index, MOD, 1-plane ?34.1 ml/m^2 --------- Volume, ED, MOD, 2-plane ? 159 ml ? 62-170 Volume, ES, MOD, 2-plane ?63 ml ? --------- Ejection fraction, MOD, 2-plane ? 60 % ?--------- Stroke volume, MOD, 2-plane ? 96 ml ? --------- Volume index, ED, MOD, 2-plane ?74 ml/m^2 --------- Volume index, ES, MOD, 2-plane ?29 ml/m^2 --------- Stroke index, MOD, 2-plane ?44.9 ml/m^2 --------- LVOT Area ? 4.9 cm^2 ?? --------- Aorta Root diameter, ED ? 30 mm ? --------- Ascending aorta anterior-posterior diameter, S ?33 mm ? --------- Left atrium Anterior-posterior dimension ?40 mm ? --------- Anterior-posterior dimension index ?1.87 cm/m^2 <2.2 Superior-inferior dimension, A4C ?40 mm ? 29-53 ?? M-mode measurements ? Normal Left ventricle LV internal dimension, ED ?*61 mm ? 37-56 LV internal dimension, ES ? 42 mm ? --------- Fractional shortening ? 31 % ?29- 45 LV posterior wall, ED ?*12 mm ? 6-11 Septal/posterior wall ratio, ED ?1 ?--------- Relative wall thickness, ED ?0.4 ?<0.45 Volume, ED, Teichholz ?187 ml ? --------- Volume, ES, Teichholz ? 78.6 ml ? --------- Ejection fraction, Teichholz ? *58 % ?64-83 Volume index, ED, Teichholz ? 87 ml/m^2 --------- Volume index, ES, Teichholz ? 37 ml/m^2 --------- Wall mass ?322.7 g ?--------- Wall mass index ?150.9 g/m^2 ??--------- Mass/height ? 1.63 g/cm ?? --------- Ventricular septum Septal thickness, ED ?12 mm ? --------- ?? Doppler measurements ?Normal Left ventricle IVRT ?67 ms ? 60-100 Ea, lateral annulus, tissue Doppler ? 8.22 cm/s ?? --------- E/Ea, lateral annulus, tissue Doppler ? 16.1 ?--------- Aortic valve Regurgitant velocity, ED ? 516 cm/s ?? --------- Regurgitant deceleration ? 231 cm/s^2 --------- Regurgitant pressure half-time ? 671 ms ? --------- Regurgitant gradient, ED ? 106.5 mm Hg ??--------- Mitral valve Peak E-wave velocity ? 132 cm/s ?? --------- Peak A-wave velocity ? 110 cm/s ?? --------- Deceleration time ? *342 ms ? 150-230 Peak gradient, D ? 7 mm Hg ??--------- Peak E/A ratio ? 1.2 ?--------- Legend: Mean values are shown as u=mean value. Asterisk (*) stewart values outside specified normal range. Electronically signed by Kris Crawford 05/02/2013 08:46 Procedure Note 05/02/2013 *Interpreting Group:* *[facility]* [address] [place] [address] *STUDY CONCLUSIONS* Summary: 1. Left ventricle: The cavity size was mildly dilated. Wall thickness was normal. Systolic function was normal. The estimated ejection fractionwas 60-65%. Wall motion was normal; there were no regional wall motion abnormalities. 2. 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 Severe regurgitation. 3. Aortic root: The aortic root was normal in size. 4. Mitral valve: Mild to moderate regurgitation. 5. Left atrium: The atrium was mildly dilated. *PATIENT PRESENTATION* Height: 198.1cm (78in ) S/D Pressure: 141 / 67 Weight: 83.9kg (184.6lb ) BSA: 2.14m^2 Test start time: 07:15 AM. Test stop time: 07:59 AM. REFERRING Jayshree Gutierrez ATTENDING Kris Crawford ORDERING Kris Crawford PERFORMING Kris Crawford NURSING TECHNICIAN Ivett Jasso RN,[facility] NURSING TECHNICIAN Casey Floyd *PROCEDURE DATA* Procedure information: This study was interpreted by [facility]. Study status: Routine.Transthoracic echocardiography. M-mode, complete 2D, complete spectral Doppler, andcolor Doppler. A Transthoracic Echocardiogram was performed. Scanning wasperformed from the parasternal, apical, subcostal, and suprasternal notch acoustic windows. Images were obtained using a Marciano [id number] 8 cardiac ultrasoundmachine. Image quality was good. Study completion: The patient tolerated theprocedure well. *INDICATIONS AND HISTORY* Indications: Aortic Valve Disorder (424.0). Labs, prior tests, procedures, and surgery: Transthoracic echocardiography (March 22, 2012). *CARDIAC ANATOMY* Left ventricle: The cavity size was mildly dilated. Wall thickness wasnormal. Systolic function was normal. The estimated ejection fraction was 60-65%.Wall motion was normal; there were no regional wall motion abnormalities. 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 Mobility was not restricted. Doppler: Transvalvular velocity was within the normal range. There was no stenosis. Severe regurgitation. Aorta: Aortic root: The aortic root was normal in size. Mitral valve: Mildly thickened leaflets. . Mobility was not restricted. Doppler: Transvalvular velocity was within the normal range. There was no evidence for stenosis. Mild to moderate regurgitation. Peak gradient:7mm Hg (D). Left atrium: The atrium was mildly dilated. Right ventricle: The cavity size was normal. Wall thickness was normal. Systolic function was normal. Pulmonic valve: Doppler: Transvalvular velocity was within the normalrange. There was no evidence for stenosis. No regurgitation. Tricuspid valve: Structurally normal valve. Doppler: Transvalvular velocity was within the normal range. There was no evidence for stenosis.No regurgitation. Pulmonary artery: Pulmonary systolic pressure was within the normalrange. Right atrium: The atrium was normal in size. Pericardium: There was no pericardial effusion. Systemic veins: Inferior vena cava: The vessel was normal in size. *MEASUREMENT TABLES* 2D measurements Normal Left ventricle Area, ED, A4C 42.8 cm^2 17.7-47.3 Area, ES, A4C 25.7 cm^2 7.9-31.5 Fractional area change, A4C 40 % --------- Area, ED, A2C 48.3 cm^2 --------- Area, ES, A2C 23.9 cm^2 8.9-28.1 Fractional area change, A2C 51 % 33.7-69 Volume, ED, MOD, 1-plane 134 ml --------- Volume, ES, MOD, 1-plane 60 ml --------- Ejection fraction, MOD, 1-plane 55 % --------- Stroke volume, MOD, 1-plane 73 ml --------- Volume index, ED, MOD, 1-plane 63 ml/m^2 --------- Volume index, ES, MOD, 1-plane 28 ml/m^2 --------- Stroke index, MOD, 1-plane 34.1 ml/m^2 --------- Volume, ED, MOD, 2-plane 159 ml 62-170 Volume, ES, MOD, 2-plane 63 ml --------- Ejection fraction, MOD, 2-plane 60 % --------- Stroke volume, MOD, 2-plane 96 ml --------- Volume index, ED, MOD, 2-plane 74 ml/m^2 --------- Volume index, ES, MOD, 2-plane 29 ml/m^2 --------- Stroke index, MOD, 2-plane 44.9 ml/m^2 --------- LVOT Area 4.9 cm^2 --------- Aorta Root diameter, ED 30 mm --------- Ascending aorta anterior-posterior diameter, S 33 mm --------- Left atrium Anterior-posterior dimension 40 mm --------- Anterior-posterior dimension index 1.87 cm/m^2 <2.2 Superior-inferior dimension, A4C 40 mm 29-53 M-mode measurements Normal Left ventricle LV internal dimension, ED *61 mm 37-56 LV internal dimension, ES 42 mm --------- Fractional shortening 31 % 29-45 LV posterior wall, ED *12 mm 6-11 Septal/posterior wall ratio, ED 1 --------- Relative wall thickness, ED 0.4 <0.45 Volume, ED, Teichholz 187 ml --------- Volume, ES, Teichholz 78.6 ml --------- Ejection fraction, Teichholz *58 % 64-83 Volume index, ED, Teichholz 87 ml/m^2 --------- Volume index, ES, Teichholz 37 ml/m^2 --------- Wall mass 322.7 g --------- Wall mass index 150.9 g/m^2 --------- Mass/height 1.63 g/cm --------- Ventricular septum Septal thickness, ED 12 mm --------- Doppler measurements Normal Left ventricle IVRT 67 ms 60-100 Ea, lateral annulus, tissue Doppler 8.22 cm/s --------- E/Ea, lateral annulus, tissue Doppler 16.1 --------- Aortic valve Regurgitant velocity, ED 516 cm/s --------- Regurgitant deceleration 231 cm/s^2 --------- Regurgitant pressure half-time 671 ms --------- Regurgitant gradient, ED 106.5 mm Hg --------- Mitral valve Peak E-wave velocity 132 cm/s --------- Peak A-wave velocity 110 cm/s --------- Deceleration time *342 ms 150-230 Peak gradient, D 7 mm Hg --------- Peak E/A ratio 1.2 --------- Legend: Mean values are shown as u=mean value. Asterisk (*) stewart values outside specified normal range. Electronically signed by Kris Crawford 05/02/2013 08:46 us Kris Crawford MD CARDIAC ECHO ORDERABLES Fi nal Result * ECG REPORT - SCANNED (03/25/2012 12:47 EDT) 03/25/2012 12:4 7 EDT Narrative 03/26/2012 2:55 EDT Procedure Note WREATH MACHINE TENDER, SCAN 2 - 03/25/2012 12:47 EDT us Scan 2 Spark Tester PROCEDURE/MINOR SURGICAL OR DERABLES Final Result documented in this encounter Visit Diagnoses Diagnosis Aortic valve disorders- Primary documented in this encounter Care Teams Coke Handling Supervisor Relationship Specialty Start Date End Date Jayshree Gutierrez MD [address] [place] [phone] PCP - General 03/03/11 03/05/15 documented as of this encounter
--- OUTSIDE RECORDS SUMMARY | 2024-06-12 19:14 | XMS_ITS | Clinical Summary ---
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 Name Role Phone Daniel Gannon ND Primary Care Provider [phone] Encounters Date Type Department Care Team Description 06/08/2024 Interpretation Only [facility] in [address] [phone] Linden Wright MD 06/02/2024 Interpretation Only [facility] in [address] [phone] Diana Vela MD 06/02/2024 Interpretation Only [facility] in [address] [phone] Diana Vela MD 06/01/2024 Telephone Cardiology at [address] [phone] Alex Raymond, SUREKHA 06/01/2024 Interpretation Only [facility] in [address] [phone] Barrington Martinez MD 06/01/2024 Interpretation Only [facility] in [address] [phone] Barrington Martinez MD 06/01/2024 Interpretation Only [facility] in [address] [phone] Barrington Martinez MD 06/01/2024 Interpretation Only [facility] in [address] [phone] Barrington Martinez MD 06/01/2024 Interpretation Only [facility] in [address] [phone] Barrington Martinez MD 06/01/2024 Interpretation Only [facility] in [address] [phone] Barrington Martinez MD 06/01/2024 Interpretation Only [facility] in [address] [phone] Barrington Martinez MD 06/01/2024 Interpretation Only [facility] in [address] [phone] Barrington Martinez MD 05/31/2024 Interpretation Only [facility] in [address] [phone] Michele Palmer MD 05/24/2024 Interpretation Only [facility] in [address] [phone] Unknown 03/29/2024 Interpretation Only [facility] in [address] [phone] Senait Mcguire APRN 03/14/2024 Interpretation Only [facility] in [address] [phone] Barrington Martinez MD 03/14/2024 Interpretation Only [facility] in [address] [phone] Roman Bowling MD 03/14/2024 Interpretation Only [facility] in [address] [phone] Roman Bowling MD from Last 3 Months Social History Tobacco Use Types Packs/Day Years Used Date Smoking Tobacco: Never Assessed Sex and Gender Information Value Date Recorded Sex Assigned at Not on file Gender Identity Not on file Sexual Orientation Not on file Plan of Treatment Health Maintenance Due Date Last Done Comments HIV screen 1998 Hepatitis C Screening 1998 Lipid Screening 1998 Hepatitis B vaccine (0-59 yrs) (1) 1999 Tetanus/Diphtheria/Pertussis Vaccines (1 - Tdap) 03/02 Covid-19 Vaccine (1 - season) 2024 Influenza (Flu) vaccine (1 o f 1 - Influenza standard series) 02/13/2024 Procedures Procedure Name Priority Date/Time Associated Diagnosis Comments XR CHEST ONE VIEW Routine 06/08/2024 1:4 8 PM EST MRI BRAIN WO CONTRAST Routine 06/02/2024 3:[address] [facility] [facility] W CONTRAST Routine 06/02/2024 3:14 PM EST MRI CERVICAL SPINE WITH/WO CONTRAST STAT 06/01/2024 6:31 PM EST MRI THORACIC SPINE WITH/WO CONTRAST STAT 06/01/2024 6:31 PM EST MRI LUMBAR SPINE WITH/WO CONTRAST STAT 06/01/2024 6:31 PM EST XR CHEST ONE VIEW STAT 05/31/2024 10: 56 AM EST US DVT LOWER EXTREMITY COMPLETE BILATERAL Routine 05/24/2024 8:34 AM EST XR FOOT MIN 3 VIEWS RIGHT STAT 03/29/2024 5:50 PM EDT US DVT LOWER EXTREMITY COMPLETE BILATERAL STAT 03/14/2024 3:37 PM EDT MRI BRAIN WO CONTRAST STAT 03/14/2024 10:[address] HEAD WO & MULTIPHASE CTA HEAD/NECK W (STROKE PROTOCOL) STAT 03/14/2024 8:25 AM EDT from Last 3 Months Results * XR Chest One View (06/08/2024 1:48 PM EST) Only the most recent of2 resultswithin the time period is included. PT CLASS I RAD ADMITDTTM [id number] RAD PT RAD INFO [id number]^WRIGHT ^LINDEN^S RAD EXAM DESC XCXR1^XR CHEST PORTABLE OR 1V^RIS [facility] WORKSTATION ID [id number] [facility] Anatomical Region Laterality Modality Chest N/A Radiographic Shaunna ging Impressions 06/08/2024 2:44 PM EST Right upper extremity PICC tip projects over the SVC. Thank you for letting us participate in the care of this patient. ??If you are a health care provider and have any questions regarding this report, please contact the number below. ??For patients who have questions please contact the health memory care program director that requested your imaging first. ? Narrative 06/08/2024 2:44 PM EST EXAMINATION: XR CHEST PORTABLE OR 1V CLINICAL HISTORY: ??Reason for Chest: ??Line Placement ??Add'l Info: portable to outpatient procedure room TECHNIQUE: Portable AP view of the chest COMPARISON: Chest radiograph 05/31/2024 FINDINGS: Right upper extremity PICC tip projects over the upper SVC. Normal cardiomediastinal silhouette. The costophrenic angles are excluded from the examination. No pneumothorax. No focal lung consolidation within the visualized lungs. Procedure Note Ella Jett MD - 06/08/2024 EXAMINATION: XR CHEST PORTABLE OR 1V CLINICAL HISTORY: Reason for Chest: Line Placement Add'l Info: portableto outpatient procedure room TECHNIQUE: Portable AP view of the chest COMPARISON: Chest radiograph 05/31/2024 FINDINGS: Right upper extremity PICC tip projects over the upper SVC. Normal cardiomediastinal silhouette. The costophrenic angles are excludedfrom the examination. No pneumothorax. No focal lung consolidation within the visualized lungs. IMPRESSION Right upper extremity PICC tip projects over the SVC. Thank you for letting us participate in the care of this patient. If youare a health care provider and have any questions regarding this report,please contact the number below. For patients who have questions please contactthe health memory care program director that requested your imaging first. Linden Wright MD IMG DX ORDERABLES * MRI Brain wo Contrast (06/02/2024 3:18 PM EST) Only the most recent of2 resultswithin the time period is included. PT CLASS I RAD ADMITDTTM [id number] [facility] PT [facility] INFO [id number]^VELA ^DIANA^B RAD EXAM DESC MRBWO^MR BRAIN WO CONTRAST^RIS [facility] WORKSTATION ID [id number] [facility] Anatomical Region Laterality Modality Head Magnetic Resonan ce Impressions 06/02/2024 3:41 PM EST No acute infarct. 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 Interval right posterior temporal lobe microhemorrhage. No additional interval findings. Old small left caudate and right putaminal lacunar infarcts, unchanged. Thank you for letting us participate in the care of this patient. ??If you are a health care provider and have any questions regarding this report, please contact the number below. ??For patients who have questions please contact the health memory care program director that requested your imaging first. ? Electronically signed by: Ubaldo Kirkland DO, [facility] ??([phone]), at 06/02/2024 3:41 PM Narrative 06/02/2024 3:41 PM EST EXAMINATION: MR BRAIN WO CONTRAST CLINICAL HISTORY: ??Reason MRI Head: ??Abn findings on CT ??Add'l Info: Endocarditis and previous stroke TECHNIQUE: MRI [...] inflammatory sinonasal, middle ear or mastoid disease. Procedure Note Ubaldo Kirkland DO - 06/02/2024 EXAMINATION: MR BRAIN WO CONTRAST CLINICAL HISTORY: Reason MRI Head: Abn findings on CT Add'l Info: Endocarditis and previous stroke TECHNIQUE: MRI of the brain performed without intravenous contrast administration. COMPARISON: MRI brain of 03/14/[address] 03/14/[address] angiogram of the head FINDINGS: There is no acute or subacute ischemic infarct, acute intracranialhemorrhage or mass effect. Interval microhemorrhage corresponding to previous right midbrain infarctwhich demonstrates residual linear T2 signal hyperintensity. There is a peripheral microhemorrhage in the posterior right temporallobe. There are no additional interval signal abnormalities of the brainparenchyma. Ventricles are normal in size. There is no extra-axial collection. There are no osseous or extracranial soft tissue lesions identified. There is no evidence of significant inflammatory sinonasal, middle earor mastoid disease. IMPRESSION No acute infarct. Interval microhemorrhage corresponding to previous right midbrain infarctwhich demonstrates residual linear T2 signal hyperintensity. Interval right posterior temporal lobe microhemorrhage. No additional interval findings. Old small left caudate and right putaminal lacunar infarcts, unchanged. Thank you for letting us participate in the care of this patient. If youare a health care provider and have any questions regarding this report,please contact the number below. For patients who have questions please contactthe health memory care program director that requested your imaging first. Electronically signed by: Ubaldo Kirkland DO, [facility]([phone]), at 06/02/2024 3:41 PM Diana Vela MD IMG MRI ORDERABLES * CT Angiogram [facility] [place] (06/02/2024 3:14 PM EST) PT CLASS I RAD ADMITDTTM [id number] [facility] PT [facility] INFO [id number]^JUDY ^DIANA^B RAD EXAM DESC CTCOW^CT ANGIOGRAPHY HEAD WWO CONTRAST^RIS [facility] WORKSTATION ID [id number] [facility] Anatomical Region Laterality Modality Neck, Head Computed Tomogra phy Impressions 06/02/2024 3:37 PM EST IMPRESSION: No acute intracranial pathology. No large vessel occlusion or proximal high-grade stenoses. Limited evaluation of mid to distal segments of the cerebral arteries. Thank you for letting us participate in the care of this patient. ??If you are a health care provider and have any questions regarding this report, please contact the number below. ??For patients who have questions please contact the health memory care program director that requested your imaging first. ? Electronically signed by: Ubaldo Kirkland DO, [facility] ??([phone]), at 06/02/2024 3:37 PM Narrative 06/02/2024 3:37 PM EST EXAMINATION: CT ANGIOGRAPHY HEAD WWO CONTRAST CLINICAL HISTORY: ??Reason for Head: ??endocarditis ??Add'l Info: Previous stroke TECHNIQUE: CTA of the [...] unremarkable. There are no saccular aneurysms identified. Procedure Note Ubaldo Kirkland DO - 06/02/2024 EXAMINATION: CT ANGIOGRAPHY HEAD WWO CONTRAST CLINICAL HISTORY: Reason for Head: endocarditis Add'l Info: Previousstroke TECHNIQUE: CTA of the head performed after the intravenous administration of 100 ccof Omnipaque 350. MIP and 3-D volumetric reconstructions were created. COMPARISON: Concurrent MRI of the brain, head CT/CTA of 03/14/2024. Brain MRI 03/14/2024 FINDINGS: Noncontrast CT: There is no acute intracranial hemorrhage or mass effect. There is noextra axial collection or ventricular dilation. There is no acute confluentischemic infarct. Old small lacunar infarct suspected head of left caudate nucleus andright putamen, unchanged. No interval osseous or extra cranial soft tissue findings. CTA HEAD: Intracranial internal carotid artery segments are normally patent. Thereis no large vessel occlusion or significant stenosis identified of theproximal anterior or middle cerebral artery segments. Mid to distal branches of cerebral arteries are suboptimally visualized,likely artifactual. The proximal vertebrobasilar system and posterior cerebralarteries are unremarkable. There are no saccular aneurysms identified. IMPRESSION IMPRESSION: No acute intracranial pathology. No large vessel occlusion or proximal high-grade stenoses. Limitedevaluation of mid to distal segments of the cerebral arteries. Thank you for letting us participate in the care of this patient. If youare a health care provider and have any questions regarding this report,please contact the number below. For patients who have questions please contactthe health memory care program director that requested your imaging first. Electronically signed by: Ubaldo Kirkland DO, [facility]([phone]), at 06/02/2024 3:37 PM Diana Vela MD IMG CT ORDERABLES * MRI Cervical Spine wwo Contrast (06/01/2024 6:31 PM EST) PT CLASS I RAD ADMITDTTM [id number] [facility] PT [facility] INFO [id number]^MARTINEZ^V ISHAL RAD EXAM DESC MRCSPWWO^MR CSPINE WWO CONTRAST^RIS [facility] WORKSTATION ID [id number] [facility] Anatomical Region Laterality Modality C-spine Magnetic Resonan ce Impressions 06/01/2024 7:50 PM EST Findings suggestive of discitis/osteomyelitis at T8-T9. No epidural phlegmon or abscess. Multilevel degenerative spondylosis as enumerated without cord compression or abnormal spinal cord signal. See above for additional findings. Thank you for letting us participate in the care of this patient. ??If you are a health care provider and have any questions regarding this report, please contact the number below. ??For patients who have questions please contact the health memory care program director that requested your imaging first. ? Electronically signed by: Ubaldo Kirkland DO, [facility] ??([phone]), at 06/01/2024 7:50 PM Narrative 06/01/2024 7:50 PM EST EXAMINATION: MR CSPINE WWO CONTRAST, MR TSPINE [...] L5-S1. The paraspinal soft tissues are unremarkable. Procedure Note Ubaldo Kirkland, DO - 06/01/2024 EXAMINATION: MR CSPINE WWO CONTRAST, MR TSPINE WWO CONTRAST, MR LS SPINEWWO CONTRAST CLINICAL HISTORY: BACTREMIA TECHNIQUE: MRI of the cervical spine was performed before and after the intravenous administration of 16cc Dotarem. COMPARISON: None FINDINGS: Cervical spine: Normal alignment of the cervical spine. No epidural phlegmon or abscess.No facet joint effusion. Small T1 hypointense, T2 hyperintense, mildly enhancing lesion within theC7 vertebral body, potentially small hemangioma. No other sites of abnormal marrow signal or enhancement. Normal signal and caliber of the cervical cord. Posterior discosteophyte complexes at C3-C4, C5-C6, and C6-C7 with mild spinal canal stenosis.Multilevel uncovertebral arthropathy causes up to severe right foraminal narrowingat C6-C7. The paraspinal soft tissues are unremarkable. The posterior fossa isnormal. Thoracic spine: Right convex thoracic curvature noted. At T8-T9 there is loss of disc height with irregularity of the [id number] endplate and T9 superior endplate. There is ill-defined T1 hypointense,STIR hyperintense marrow signal and enhancement in the T8 and T9 vertebralbodies. There is mild paraspinal soft tissue thickening and enhancement at T8 andT9. Multilevel nonedematous endplate irregularities and Schmorl's nodesherniations are identified throughout the thoracic spine. No epidural phlegmon or abscess. No facet joint effusion. No paraspinalabscess. Disc bulge at T3-T4 with mild spinal canal stenosis. No significant spinalcanal stenosis at any other level. Lumbar spine: No abnormal marrow signal, no abnormal disc signal, or enhancement tosuggest discitis/osteomyelitis. No epidural phlegmon or epidural abscess. Smallfacet joint effusions at multiple levels likely degenerative secondary tofacet arthropathy. There is mild endplate edema towards the right at L2-L3, likelydegenerative in etiology. Disc bulges and facet arthropathy at L3-L4 and L4-L5 resulting inmoderate stenosis of the bilateral subarticular recesses and mild bilateralneural foraminal stenosis. Moderate left neural foraminal stenosis at L5-S1. The paraspinal soft tissues are unremarkable. IMPRESSION Findings suggestive of discitis/osteomyelitis at T8-T9. No epiduralphlegmon or abscess. Multilevel degenerative spondylosis as enumerated without cord compressionor abnormal spinal cord signal. See above for additional findings. Thank you for letting us participate in the care of this patient. If youare a health care provider and have any questions regarding this report,please contact the number below. For patients who have questions please contactthe health memory care program director that requested your imaging first. Electronically signed by: Ubaldo Kirkland DO, [facility]([phone]), at 06/01/2024 7:50 PM Barrington Martinez MD IMG MRI ORDERABLES * MRI Thoracic Spine wwo Contrast (06/01/2024 6:31 PM EST) PT CLASS I RAD ADMITDTTM [id number] [facility] PT [facility] INFO [id number]^MICHELLE^V ISHAL RAD EXAM DESC MRTSWWO^MR TSPINE WWO CONTRAST^RIS [facility] WORKSTATION ID [id number] [facility] Anatomical Region Laterality Modality T-spine Magnetic Resonan ce Impressions 06/01/2024 7:50 PM EST Findings suggestive of discitis/osteomyelitis at T8-T9. No epidural phlegmon or abscess. Multilevel degenerative spondylosis as enumerated without cord compression or abnormal spinal cord signal. See above for additional findings. Thank you for letting us participate in the care of this patient. ??If you are a health care provider and have any questions regarding this report, please contact the number below. ??For patients who have questions please contact the health memory care program director that requested your imaging first. ? Electronically signed by: Ubaldo Kirkland DO, [facility] ??([phone]), at 06/01/2024 7:50 PM Narrative 06/01/2024 7:50 PM EST EXAMINATION: MR CSPINE WWO CONTRAST, MR TSPINE [...] L5-S1. The paraspinal soft tissues are unremarkable. Procedure Note Ubaldo Kirkland, DO - 06/01/2024 EXAMINATION: MR CSPINE WWO CONTRAST, MR TSPINE WWO CONTRAST, MR LS SPINEWWO CONTRAST CLINICAL HISTORY: BACTREMIA TECHNIQUE: MRI of the cervical spine was performed before and after the intravenous administration of 16cc Dotarem. COMPARISON: None FINDINGS: Cervical spine: Normal alignment of the cervical spine. No epidural phlegmon or abscess.No facet joint effusion. Small T1 hypointense, T2 hyperintense, mildly enhancing lesion within theC7 vertebral body, potentially small hemangioma. No other sites of abnormal marrow signal or enhancement. Normal signal and caliber of the cervical cord. Posterior discosteophyte complexes at C3-C4, C5-C6, and C6-C7 with mild spinal canal stenosis.Multilevel uncovertebral arthropathy causes up to severe right foraminal narrowingat C6-C7. The paraspinal soft tissues are unremarkable. The posterior fossa isnormal. Thoracic spine: Right convex thoracic curvature noted. At T8-T9 there is loss of disc height with irregularity of the [id number] endplate and T9 superior endplate. There is ill-defined T1 hypointense,STIR hyperintense marrow signal and enhancement in the T8 and T9 vertebralbodies. There is mild paraspinal soft tissue thickening and enhancement at T8 andT9. Multilevel nonedematous endplate irregularities and Schmorl's nodesherniations are identified throughout the thoracic spine. No epidural phlegmon or abscess. No facet joint effusion. No paraspinalabscess. Disc bulge at T3-T4 with mild spinal canal stenosis. No significant spinalcanal stenosis at any other level. Lumbar spine: No abnormal marrow signal, no abnormal disc signal, or enhancement tosuggest discitis/osteomyelitis. No epidural phlegmon or epidural abscess. Smallfacet joint effusions at multiple levels likely degenerative secondary tofacet arthropathy. There is mild endplate edema towards the right at L2-L3, likelydegenerative in etiology. Disc bulges and facet arthropathy at L3-L4 and L4-L5 resulting inmoderate stenosis of the bilateral subarticular recesses and mild bilateralneural foraminal stenosis. Moderate left neural foraminal stenosis at L5-S1. The paraspinal soft tissues are unremarkable. IMPRESSION Findings suggestive of discitis/osteomyelitis at T8-T9. No epiduralphlegmon or abscess. Multilevel degenerative spondylosis as enumerated without cord compressionor abnormal spinal cord signal. See above for additional findings. Thank you for letting us participate in the care of this patient. If youare a health care provider and have any questions regarding this report,please contact the number below. For patients who have questions please contactthe health memory care program director that requested your imaging first. Electronically signed by: Ubaldo Kirkland DO, [facility]([phone]), at 06/01/2024 7:50 PM Barrington Martinez MD IMG MRI ORDERABLES * MRI Lumbar Spine wwo Contrast (06/01/2024 6:31 PM EST) PT CLASS I RAD ADMITDTTM [id number] [facility] PT [facility] INFO [id number]^MICHELLE^V ISHAL RAD EXAM DESC MRLSWWO^MR LS SPINE WWO CONTRAST^RIS [facility] WORKSTATION ID [id number] [facility] Anatomical Region Laterality Modality L-spine Magnetic Resonan ce Impressions 06/01/2024 7:50 PM EST Findings suggestive of discitis/osteomyelitis at T8-T9. No epidural phlegmon or abscess. Multilevel degenerative spondylosis as enumerated without cord compression or abnormal spinal cord signal. See above for additional findings. Thank you for letting us participate in the care of this patient. ??If you are a health care provider and have any questions regarding this report, please contact the number below. ??For patients who have questions please contact the health memory care program director that requested your imaging first. ? Electronically signed by: Ubaldo Kirkland DO, [facility] ??([phone]), at 06/01/2024 7:50 PM Narrative 06/01/2024 7:50 PM EST EXAMINATION: MR CSPINE WWO CONTRAST, MR TSPINE [...] L5-S1. The paraspinal soft tissues are unremarkable. Procedure Note Ubaldo Kirkland, DO - 06/01/2024 EXAMINATION: MR CSPINE WWO CONTRAST, MR TSPINE WWO CONTRAST, MR LS SPINEWWO CONTRAST CLINICAL HISTORY: BACTREMIA TECHNIQUE: MRI of the cervical spine was performed before and after the intravenous administration of 16cc Dotarem. COMPARISON: None FINDINGS: Cervical spine: Normal alignment of the cervical spine. No epidural phlegmon or abscess.No facet joint effusion. Small T1 hypointense, T2 hyperintense, mildly enhancing lesion within theC7 vertebral body, potentially small hemangioma. No other sites of abnormal marrow signal or enhancement. Normal signal and caliber of the cervical cord. Posterior discosteophyte complexes at C3-C4, C5-C6, and C6-C7 with mild spinal canal stenosis.Multilevel uncovertebral arthropathy causes up to severe right foraminal narrowingat C6-C7. The paraspinal soft tissues are unremarkable. The posterior fossa isnormal. Thoracic spine: Right convex thoracic curvature noted. At T8-T9 there is loss of disc height with irregularity of the [id number] endplate and T9 superior endplate. There is ill-defined T1 hypointense,STIR hyperintense marrow signal and enhancement in the T8 and T9 vertebralbodies. There is mild paraspinal soft tissue thickening and enhancement at T8 andT9. Multilevel nonedematous endplate irregularities and Schmorl's nodesherniations are identified throughout the thoracic spine. No epidural phlegmon or abscess. No facet joint effusion. No paraspinalabscess. Disc bulge at T3-T4 with mild spinal canal stenosis. No significant spinalcanal stenosis at any other level. Lumbar spine: No abnormal marrow signal, no abnormal disc signal, or enhancement tosuggest discitis/osteomyelitis. No epidural phlegmon or epidural abscess. Smallfacet joint effusions at multiple levels likely degenerative secondary tofacet arthropathy. There is mild endplate edema towards the right at L2-L3, likelydegenerative in etiology. Disc bulges and facet arthropathy at L3-L4 and L4-L5 resulting inmoderate stenosis of the bilateral subarticular recesses and mild bilateralneural foraminal stenosis. Moderate left neural foraminal stenosis at L5-S1. The paraspinal soft tissues are unremarkable. IMPRESSION Findings suggestive of discitis/osteomyelitis at T8-T9. No epiduralphlegmon or abscess. Multilevel degenerative spondylosis as enumerated without cord compressionor abnormal spinal cord signal. See above for additional findings. Thank you for letting us participate in the care of this patient. If youare a health care provider and have any questions regarding this report,please contact the number below. For patients who have questions please contactthe health memory care program director that requested your imaging first. Electronically signed by: Ubaldo Kirkland DO, [facility]([phone]), at 06/01/2024 7:50 PM Barrington Martinez MD IMG MRI ORDERABLES * US DVT Lower Extremity Complete Bilateral (05/24/2024 8:34 AM EST) Only the most recent of2 resultswithin the time period is included. PT CLASS O RAD ADMITDTTM [id number] [facility] PT [facility] INFO [id number]^CHARO S^RANDY^N RAD EXAM DESC UDVT2^US DVT BILATERAL^RIS [facility] WORKSTATION ID [id number] [facility] Anatomical Region Laterality Modality Arm, Shoulder, Elbow, Forear m, Wrist, Hand, Hip, Thigh, Knee, Leg, Ankle, Foot Ultrasound 05/24/2024 10:5 5 AM EST Impressions 05/24/2024 11:37 AM EST Normal bilateral lower extremity duplex venous Doppler sonogram. Electronically signed by: Narciso Jane MD, [facility] ([phone]), at 05/24/2024 11:30 AM Thank you for letting us participate in the care of this patient. If you are a health care provider and have any questions regarding this report, please contact the number above. For patients who have questions, please contact the health memory care program director that requested your imaging first. ? Narciso Jane, Staff Physician Electronically Signed Final Report ?? 05/24/2024 11:37 am Narrative 05/24/2024 11:37 AM EST Peripheral Venous Duplex ?(Signed Final 05/24/2024 11:37 am) PATIENT INFO: ID #: ? [id number] ? : [birth year] (44 yrs)(M) Name: ? FELICIANO MOORE ? Visit Date:05/24/2024 10:55 am PERFORMED BY: Attending: ?Herr FORRESTER, Narciso Khan Performed By: ? Yair RDMS, RVT, RT, Ramandeep Referred By: ?RADNY JUAN Location: ? [facility] SERVICE(S) PROVIDED: USDVT2 - DVT Lower Extremity Complete Bilateral - [id number] INDICATIONS: Reason US Extremity: ??Swelling ??Add'l Info: TECHNIQUE/SCAN QUALITY: Technique: ? [place] scale, color and spectral Doppler of ?the lower extremity venous system. LOWER EXTREMITY PERIPHERAL VENOUS: RIGHT ? Vein ??Thrombu ?Compress ?? Spontaneous ? Augment ? s ?Phasic CFV: ?No ? Yes ?Yes ? Yes FV Junc: ??No ? Yes ?Yes ? Yes PFV: ?No ? Yes ?Yes ? Yes FV Prox: ??No ? Yes ?Yes ? Yes FV Mid: ?? No ? Yes ?Yes ? Yes FV Dist: ??No ? Yes ?Yes ? Yes Pop: ?No ? Yes ?Yes ? Yes PTV: ?No ? Yes ?Yes ? Yes GSV: ?No ? Yes ?Yes LEFT ? Vein ??Thrombu ?Compress ?? Spontaneous ? Augment ? s ?Phasic CFV: ?No ? Yes ?Yes ? Yes FV Junc: ??No ? Yes ?Yes ? Yes PFV: ?No ? Yes ?Yes ? Yes FV Prox: ??No ? Yes ?Yes ? Yes FV Mid: ?? No ? Yes ?Yes ? Yes FV Dist: ??No ? Yes ?Yes ? Yes Pop: ?No ? Yes ?Yes ? Yes PTV: ?No ? Yes GSV: ?No ? Yes ?Yes Procedure Note Narciso Jane MD - 05/24/2024 Peripheral Venous Duplex (Signed Final 05/24/2024 11:37am) PATIENT INFO: ID #: [id number] : [birth year] (44 yrs)(M) Name: FELICIANO MOORE Visit Date:05/24/2024 10:55 am PERFORMED BY: Attending: Narciso Jane MD Performed By: Yair FITZGERALD, RVT, RTRamandeep Referred By: RANDY JUAN Location: [facility] SERVICE(S) PROVIDED: USDVT2 - DVT Lower Extremity Complete Bilateral - [id number] INDICATIONS: Reason US Extremity: Swelling Add'l Info: [...] PTV: No Yes GSV: No Yes Yes IMPRESSION Normal bilateral lower extremity duplex venous Doppler sonogram. Electronically signed by: Narciso Jane MD, [facility] ([phone]), at 05/24/2024 11:30 AM Thank you for letting us participate in the care of this patient. If you are a health care provider and have any questions regarding this report, please contact the number above. For patients who have questions, please contact the health memory care program director that requested your imaging first. Narciso Jane, Staff Physician Electronically Signed Final Report 05/24/2024 11:37 am Randy Juan MD IMG US GEN ORDERABLE S * XR Foot Min 3 views Right (Generic) (03/29/2024 5:50 PM EDT) PT CLASS E RAD ADMITDTTM [id number] RAD PT [facility] INFO [id number]^BRUNO^C HELSEA^L RAD EXAM DESC XRFTMTVR^XR FOOT 3V RT^RIS [facility] WORKSTATION ID [id number] [facility] Anatomical Region Laterality Modality Foot Right Radiographic Shaunna ging Impressions 03/29/2024 6:07 PM EDT Unremarkable right foot x-rays. Thank you for letting us participate in the care of this patient. ??If you are a health care provider and have any questions regarding this report, please contact the number below. ??For patients who have questions please contact the health memory care program director that requested your imaging first. ? Narrative 03/29/2024 6:07 PM EDT EXAMINATION: XR FOOT 3V RT CLINICAL HISTORY: ??Reason for Extrem: ??Pain ??Add'l Info: swelling TECHNIQUE: 3 views RIGHT foot COMPARISON: None FINDINGS: No fracture or dislocation is detected. The bone mineralization is normal. The soft tissues are unremarkable. Procedure Note Mo Vega MD - 03/29/2024 EXAMINATION: XR FOOT 3V RT CLINICAL HISTORY: Reason for Extrem: Pain Add'l Info: swelling TECHNIQUE: 3 views RIGHT foot COMPARISON: None FINDINGS: No fracture or dislocation is detected. The bone mineralization is normal. The soft tissues are unremarkable. IMPRESSION Unremarkable right foot x-rays. Thank you for letting us participate in the care of this patient. If youare a health care provider and have any questions regarding this report,please contact the number below. For patients who have questions please contactthe health memory care program director that requested your imaging first. Senait L Bruno AUTO EMISSIONS TECHNICIAN IMG DX ORDERABLES * CT Head wo & Multiphase CTA Head/Neck (THROMBECTOMY PROTOCOL) (03/14/2024 8:25 AM EDT) PT CLASS E RAD ADMITDTTM [id number] RAD PT RAD INFO [id number]^YOLANDA MENDEZLEYDAJARED^ROMAN RAD EXAM DESC CTHSTROKE^CT STROKE PROTOCOL W CT HEAD^RIS [facility] WORKSTATION ID [id number] RAD Anatomical Region Laterality Modality Head Computed Tomogra phy Impressions 03/14/2024 8:58 AM EDT No acute intracranial process. Normal CT angiogram neck. Motion artifact somewhat limits CT angiogram head exam. No central branch occlusion or definite abnormality. Thank you for letting us participate in the care of this patient. ??If you are a health care provider and have any questions regarding this report, please contact the number below. ??For patients who have questions please contact the health memory care program director that requested your imaging first. ? Electronically signed by: Dulce Maria De La Cruz [facility] ([phone]), at 03/14/2024 8:58 AM Narrative 03/14/2024 8:58 AM EDT EXAMINATION: CT STROKE PROTOCOL W CT HEAD CLINICAL HISTORY: ??Reason for Head: ??Double Vision ??Add'l Info: R lateral rectus palsy, headache TECHNIQUE: CT of head without intravenous contrast. Multiphase CTA of the carotids and [place] is performed after the administration of 100cc [...] sinus mucosal thickening. CT angiogram neck and [place]: Mild apical lung scarring. Thyroid and major [...] apex creating pseudolesion in the proximal left STOVE POLISHER. Apparent mild irregularity of the proximal left STOVE POLISHER, possibly artifactual. Normal proximal superior cerebellar and right posterior cerebral arteries. The right and P1 STOVE POLISHER segment is hypoplastic. Procedure Note Dulce Maria De La Cruz MD - 03/14/2024 EXAMINATION: CT STROKE PROTOCOL W CT HEAD CLINICAL HISTORY: Reason for Head: Double Vision Add'l Info: R lateralrectus palsy, headache TECHNIQUE: CT of head without intravenous contrast. Multiphase CTA of the carotidsand [place] is performed after the administration of 100cc ofOmnipaque 350 intravenous contrast. MIP and 3-D volumetric reconstructions werecreated. COMPARISON: None FINDINGS: Head: No acute intracranial hemorrhage, mass effect or extra-axialcollection. The moscoso-white differentiation appears maintained. Probable prominent perivascular space at the right basal ganglia. The ventricles are normalin caliber and the basilar cisterns are patent. Orbits appear unremarkable.The otomastoid spaces are clear. Opacification of a posterior right ethmoidair cell. Trace maxillary sinus mucosal thickening. CT angiogram neck and [place]: Mild apical lung scarring. Thyroidand major salivary glands appear normal. Symmetric prominence of thepalatine tonsillar tissue. The brachiocephalic origin and proximal left common carotid artery isobscured by streak artifact from intravenous contrast. Visualized portions of thecommon carotid arteries demonstrate normal course and caliber. The internalcarotid arteries are normal in course and caliber. The vertebral arteries are codominant and normal in course and caliber throughout. Probably normal basilar artery, with motion artifact at theapex creating pseudolesion in the proximal left STOVE POLISHER. Apparent mild irregularityof the proximal left STOVE POLISHER, possibly artifactual. Normal proximal superiorcerebellar and right posterior cerebral arteries. The right and P1 STOVE POLISHER segment is hypoplastic. IMPRESSION No acute intracranial process. Normal CT angiogram neck. Motion artifact somewhat limits CT angiogram head exam. No centralbranch occlusion or definite abnormality. Thank you for letting us participate in the care of this patient. If youare a health care provider and have any questions regarding this report,please contact the number below. For patients who have questions please contactthe health memory care program director that requested your imaging first. Electronically signed by: Dulce Maria De La Cruz [facility]([phone]), at 03/14/2024 8:58 AM Roman Bowling MD IMG CT ORDERABLES from Last 3 Months Care Teams Boat Driver Relationship Specialty Start Date End Date Daniel Gannon ND [address] [place] [address] [place] [address] PCP - General Naturopathic Medicine 03/06/24
--- OUTSIDE RECORDS SUMMARY | 2024-06-12 19:14 | XMS_ITS | Encounter Summary ---
Author Organization [facility] [place] [address] Care Team Providers Care Manufacturing Engineer Machining Name Role Phone Daniel Gannon ND Primary Care Provider [phone] Encounter Details Date Type Department Care Team (Late st Contact Info) Description 03/14/2024 Interpretation Only [facility] in [facility] [address] [place] [phone] Roman Bowling MD [address] [place] [id number] Social History Tobacco Use Types Packs/Day Years Used Date Smoking Tobacco: Never Assessed Sex and Gender Information Value Date Recorded Sex Assigned at Not on file Gender Identity Not on file Sexual Orientation Not on file documented as of this encounter Plan of Treatment Not on file documented as of this encounter Procedures Procedure Name Priority Date/Time Associated Diagnosis Comments MRI BRAIN WO CONTRAST STAT 03/14/2024 10:25 AM EDT documented in this encounter Results * MRI Brain wo Contrast (03/14/2024 10:25 AM EDT) PT CLASS E RAD ADMITDTTM [id number] RAD PT RAD INFO [id number]^YOLANDA LÓPEZ^ROMAN RAD EXAM DESC MRBWO^MR BRAIN WO CONTRAST^RIS RAD WORKSTATION ID [id number] RAD Anatomical Region Laterality Modality Head Magnetic Resonan ce Impressions 03/14/2024 10:35 AM EDT 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 This finding was discussed with Dr. Corona at the time of interpretation. Thank you for letting us participate in the care of this patient. ??If you are a health care provider and have any questions regarding this report, please contact the number below. ??For patients who have questions please contact the health childbirth and infant care teacher that requested your imaging first. ? Electronically signed by: Geoffrey Hutchison MD, [facility] ([phone]), at 03/14/2024 10:35 AM Narrative 03/14/2024 10:35 AM EDT EXAMINATION: MR BRAIN WO CONTRAST CLINICAL HISTORY: ??Reason MRI Head: ??Facial numbness ??Add'l Info: R lateral rectus palsy, R facial [...] normal. Skull base, and pituitary appear normal. Procedure Note Geoffrey Hutchison MD - 03/14/2024 EXAMINATION: MR BRAIN WO CONTRAST CLINICAL HISTORY: Reason MRI Head: Facial numbness Add'l Info: Rlateral rectus palsy, R facial numbness TECHNIQUE: MRI of the brain performed without intravenous contrast administration. COMPARISON: CT 03/14/2024 FINDINGS: Focal area of restricted diffusion involves the right midbrain, justventral to the cerebral aqueduct, extending to the margin of the right peduncle,and extending anteriorly to the inferior margin of the interpeduncular fossa.There are no abnormal blood products. Major intracranial flow voids are normal.No mass effect or shift. Craniocervical junction is normal. Skull base, and pituitary appear normal. 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 This finding was discussed with Dr. Corona at the time of interpretation. Thank you for letting us participate in the care of this patient. If youare a health care provider and have any questions regarding this report,please contact the number below. For patients who have questions please contactthe health childbirth and infant care teacher that requested your imaging first. Electronically signed by: Geoffrey Hutchison MD, [facility]([phone]), at 03/14/2024 10:35 AM Roman Bowling MD IMG MRI ORDERABLES documented in this encounter Visit Diagnoses Not on filedocumented in this encounter Care Teams Manufacturing Engineer Machining Relationship Specialty Start Date End Date Daniel Gannon ND [address] [place] [address] [place] [address] PCP - General Naturopathic Medicine 03/06/24 documented as of this encounter
--- OUTSIDE RECORDS SUMMARY | 2024-06-12 19:14 | XMS_ITS | Encounter Summary ---
[facility] [place] [address] Care Team Providers Care Pulverizer Name Role Phone Daniel Gannon ND Primary Care Provider +- [phone] Encounter Details Date Type Department Care Team (Late st Contact Info) Description 06/01/2024 Interpretation Only [address] [phone] Barrington Mccurdy MD [address] [place] [phone] Social History Tobacco Use Types Packs/Day Years Used Date Smoking Tobacco: Never Assessed Sex and Gender Information Value Date Recorded Sex Assigned at Not on file Gender Identity Not on file Sexual Orientation Not on file documented as of this encounter Plan of Treatment Not on file documented as of this encounter Visit Diagnoses Not on filedocumented in this encounter Care Teams Pulverizer Relationship Specialty Start Date End Date Daniel Gannon ND [address] [place] [address] [place] [address] PCP - General Naturopathic Medicine 03/06/24 documented as of this encounter
--- OUTSIDE RECORDS SUMMARY | 2024-06-12 19:14 | XMS_ITS | Encounter Summary ---
Author Organization [facility] [place] [address] Care Team Providers Care Card Hanger Name Role Phone Daniel Gannon ND Primary Care Provider [phone] Encounter Details Date Type Department Care Team (Late st Contact Info) Description 06/08/2024 Interpretation Only [facility] in [facility] [address] [place] [phone] Linden Azevedo MD [address] [place] [id number] Social History Tobacco Use Types Packs/Day Years [...] VIEW Routine 06/08/2024 1:4 8 PM EST documented in this encounter Results * XR Chest One View (06/08/2024 1:48 PM EST) PT CLASS I RAD ADMITDTTM [id number] RAD PT RAD INFO [id number]^KYLE ^LINDEN^Daria RAD EXAM DESC XCXR1^XR CHEST PORTABLE OR 1V^RIS RAD WORKSTATION ID [id number] RAD Anatomical Region Laterality Modality Chest N/A Radiographic Shaunna ging Impressions 06/08/2024 2:44 PM EST Right upper extremity PICC tip projects over the SVC. Thank you for letting us participate in the care of this patient. ??If you are a health care provider and have any questions regarding this report, please contact the number below. ??For patients who have questions please contact the health healthcare advisory services manager that requested your imaging first. ? Electronically signed by: Ella Jett MD, [facility] ([phone]), at 06/08/2024 2:44 PM Narrative 06/08/2024 2:44 PM EST EXAMINATION: XR [...] patients who have questions please contactthe health healthcare advisory services manager that requested your imaging first. Linden Azevedo MD IMG DX ORDERABLES documented in this encounter Visit Diagnoses Not on filedocumented in this encounter Care Teams Card Hanger Relationship Specialty Start Date End Date Daniel Gannon ND [address] [place] [address] [place], [place] [address] PCP - General Naturopathic Medicine 03/06/24 documented as of this encounter
--- OUTSIDE RECORDS SUMMARY | 2024-06-12 19:14 | XMS_ITS | Encounter Summary ---
Author Organization [facility] [place] [address] Care Team Providers Care Keg Washer Name Role Phone Daniel Gannon ND Primary Care Provider [phone] Encounter Details Date Type Department Care Team (Late st Contact Info) Description 03/29/2024 Interpretation Only [facility] in [facility] [address] [place] [phone] Senait Mcguire, LABOR RELATIONS SPECIALIST [address] [place] [id number] Social History Tobacco Use Types Packs/Day Years Used Date Smoking Tobacco: Never Assessed Sex and Gender Information Value Date Recorded Sex Assigned at Not on file Gender Identity Not on file Sexual Orientation Not on file documented as of this encounter Plan of Treatment Not on file documented as of this encounter Procedures Procedure Name Priority Date/Time Associated Diagnosis Comments XR FOOT MIN 3 VIEWS RIGHT STAT 03/29/2024 5:50 PM EDT documented in this encounter Results * XR Foot Min 3 views Right (Generic) (03/29/2024 5:50 PM EDT) PT CLASS E RAD ADMITDTTM [id number] RAD PT RAD MD INFO [id number]^MAYNOR^C [place]^L RAD EXAM DESC XRFTMTVR^XR FOOT 3V RT^RIS RAD WORKSTATION ID [id number] RAD Anatomical Region Laterality Modality Foot Right Radiographic Shaunna ging Impressions 03/29/2024 6:07 PM EDT Unremarkable right foot x-rays. Thank you for letting us participate in the care of this patient. ??If you are a health care provider and have any questions regarding this report, please contact the number below. ??For patients who have questions please contact the health care tech that requested your imaging first. ? Narrative [...] patients who have questions please contactthe health care tech that requested your imaging first. Senait L Maynor LABOR RELATIONS SPECIALIST IMG DX ORDERABLES documented in this encounter Visit Diagnoses Not on filedocumented in this encounter Care Teams Keg Washer Relationship Specialty Start Date End Date Daniel Gannon ND [address] [place] [address] [place] [address] PCP - General Naturopathic Medicine 03/06/24 documented as of this encounter
--- OUTSIDE RECORDS SUMMARY | 2024-06-12 19:14 | XMS_ITS | Encounter Summary ---
Author Organization [facility] [place] [address] Care Team Providers Care Crane Operator Cab Name Role Phone Daniel Gannon ND Primary Care Provider [phone] Encounter Details Date Type Department Care Team (Late st Contact Info) Description 06/01/2024 Interpretation Only [facility] [address] [place] [phone] Barrington Martinez MD [address] [place] [id number] Social History Tobacco Use Types Packs/Day Years Used Date Smoking Tobacco: Never Assessed Sex and Gender Information Value Date Recorded Sex Assigned at Not on file Gender Identity Not on file Sexual Orientation Not on file documented as of this encounter Plan of Treatment Not on file documented as of this encounter Procedures Procedure Name Priority Date/Time Associated Diagnosis Comments MRI THORACIC SPINE WITH/WO CONTRAST STAT 06/01/2024 6:31 PM EST documented in this encounter Results * MRI Thoracic Spine wwo Contrast (06/01/2024 6:31 PM EST) PT CLASS I RAD ADMITDTTM [id number] RAD PT RAD INFO [id number]^MARTINEZ^V ISHAL RAD EXAM DESC MRTSWWO^MR TSPINE WWO CONTRAST^RIS RAD WORKSTATION ID [id number] RAD Anatomical Region Laterality Modality T-spine Magnetic Resonan [...] who have questions please contact the health child care nurse that requested your imaging first. ? Electronically signed by: Ubaldo Kirkland DO, [facility] ??([phone]), at 06/01/2024 7:50 PM Narrative 06/01/2024 7:50 [...] of disc height with irregularity of the P3vmmiiitg endplate and T9 superior endplate. There is [...] patients who have questions please contactthe health child care nurse that requested your imaging first. Electronically signed by: Ubaldo Kirkland DO, [facility]([phone]), at 06/01/2024 7:50 PM Barrington Martinez MD IMBrenda MRI ORDERABLES documented in this encounter Visit Diagnoses Not on filedocumented in this encounter Care Teams Crane Operator Cab Relationship Specialty Start Date End Date Daniel Gannon ND [address] [place] [address] [place] [address] PCP - General Naturopathic Medicine 03/06/24 documented as of this encounter
--- OUTSIDE RECORDS SUMMARY | 2024-06-12 19:14 | XMS_ITS | Encounter Summary ---
Author Organization [facility] [place] [address] Care Team Providers Care Administrative Executive Name Role Phone Daniel Gannon ND Primary Care Provider +- [phone] Encounter Details Date Type Department Care Team (Late st Contact Info) Description 06/01/2024 Interpretation Only [address] [phone] Barrington Mccurdy MD [address] [place] [id number] Social History Tobacco Use Types Packs/Day Years Used Date Smoking Tobacco: Never Assessed Sex and Gender Information Value Date Recorded Sex Assigned at Not on file Gender Identity Not on file Sexual Orientation Not on file documented as of this encounter Plan of Treatment Not on file documented as of this encounter Visit Diagnoses Not on filedocumented in this encounter Care Teams Administrative Executive Relationship Specialty Start Date End Date Daniel Gannon ND [address] [place] [address] [place] [address] PCP - General Naturopathic Medicine 03/06/24 documented as of this encounter
--- OUTSIDE RECORDS SUMMARY | 2024-06-12 19:14 | XMS_ITS | Encounter Summary ---
Author Organization [facility] Address [address] [place] [address] Care Team Providers Care Strategic Communications Manager Name Role Phone Jayshree Gutierrez MD Primary Care Provider Reason for Visit * Reason Onset Date Comments Follow-up 05/18/2011 Encounter Details Date Type Department Care Team (Late st Contact Info) Description 05/18/[address] [facility] ENT- [address] [phone] Jonny Ennis MD [address] [place] [address], [address] [place] [address] Follow-up Social History Tobacco Use Types Packs/Day [...] encounter Miscellaneous Notes * Telephone Encounter - Jonny Ennis MD - 05/19/2011 1532 EST They had questions about vocal fold injection laryngoplasty for voice improvement. I answered all their questions by phone today. 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 They will discuss this further and contact my office should they choose to proceed. It would be preferable to do the surgery before the end of May. JONNY ENNIS MD * Telephone Encounter - Coreyjoe Betina DowneyLarueano - 05/18/[address] Ennis contact patient at home. They have more questions to ask. Please contact them at home or [phone]. documented in this encounter Plan of Treatment Upcoming Encounters Date Type Department Care Team (Late st Contact Info) Description 08/24/2024 14:15 EDT Office Visit [facility] Rheumatology & Immunology - [address] [address] Chantel Juan MD [address] [place] [address] documented as of this encounter Visit Diagnoses Not on filedocumented in this encounter Care Teams Strategic Communications Manager Relationship Specialty Start Date End Date Jayshree Gutierrez MD [address] [place] [phone] PCP - General 03/03/11 03/05/15 documented as of this encounter
--- OUTSIDE RECORDS SUMMARY | 2024-06-12 19:14 | XMS_ITS | Encounter Summary ---
Author Organization [facility] [place] [address] Care Team Providers Care Java Application Engineer Name Role Phone Daniel Gannon ND Primary Care Provider [phone] Encounter Details Date Type Department Care Team (Late st Contact Info) Description 05/24/2024 Interpretation Only [facility] in [address] [phone] Unknown None Social History Tobacco Use Types Packs/Day Years Used Date Smoking Tobacco: Never Assessed Sex and Gender Information Value Date Recorded Sex Assigned at Not on file Gender Identity Not on file Sexual Orientation Not on file documented as of this encounter Plan of Treatment Not on file documented as of this encounter Procedures Procedure Name Priority Date/Time Associated Diagnosis Comments US DVT LOWER EXTREMITY COMPLETE BILATERAL Routine 05/24/2024 8:34 AM EST documented in this encounter Results * US DVT Lower Extremity Complete Bilateral (05/24/2024 8:34 AM EST) PT CLASS O RAD ADMITDTTM [id number] RAD PT RAD MD INFO [id number]^CHARO S^CHANTEL^N RAD EXAM DESC UDVT2^US DVT BILATERAL^RIS RAD WORKSTATION ID [id number] [facility] Anatomical Region Laterality Modality Arm, Shoulder, Elbow, Forear m, Wrist, Hand, Hip, Thigh, Knee, Leg, Ankle, Foot Ultrasound 05/24/2024 10:5 5 AM EST Impressions 05/24/2024 11:37 AM EST Normal bilateral lower extremity duplex venous Doppler sonogram. Thank you for letting us participate in the care of this patient. If you are a health care provider and have any questions regarding this report, please contact the number above. For patients who have questions, please contact the health healthcare manager that requested your imaging first. ? Narciso Jane, Staff Physician Electronically Signed Final Report ?? 05/24/2024 11:37 am Narrative 05/24/2024 11:37 AM EST Peripheral Venous Duplex ?(Signed Final 05/24/2024 11:37 am) PATIENT INFO: ID #: ? [id number] ? : [birth year] (44 yrs)(M) Name: ? FELICIANO MOORE ? Visit Date:05/24/2024 10:55 am PERFORMED BY: Attending: ?Herr FORRESTER, Narciso Khan Performed By: ? Yair HILLMS, RVT, RTRamandeep Referred By: ?CHANTEL JUAN Location: ? [facility] SERVICE(S) PROVIDED: USDVT2 - DVT Lower Extremity Complete Bilateral - [id number] INDICATIONS: Reason US Extremity: ??Swelling ??Add'l Info: [...] Final 05/24/2024 11:37am) PATIENT INFO: ID #: [id number] : [birth year] (44 yrs)(M) Name: FELICIANO MOORE Visit Date:05/24/2024 10:55 am PERFORMED BY: Attending: Narciso Jane MD Performed By: Yair FITZGERALD, RVT, RTRamandeep Referred By: CHANTEL JUAN Location: [facility] SERVICE(S) PROVIDED: USDVT2 - DVT Lower Extremity Complete Bilateral - [id number] INDICATIONS: Reason US Extremity: Swelling Add'l Info: [...] bilateral lower extremity duplex venous Doppler sonogram. Thank you for letting us participate in the care of this patient. If you are a health care provider and have any questions regarding this report, please contact the number above. For patients who have questions, please contact the health healthcare manager that requested your imaging first. Narciso Jane, Staff Physician Electronically Signed Final Report 05/24/2024 11:37 am Chantel Juan MD IMG US GEN ORDERABLE S documented in this encounter Visit Diagnoses Not on filedocumented in this encounter Care Teams Java Application Engineer Relationship Specialty Start Date End Date Daniel Gannon ND [address] [place] [address] [place] [address] PCP - General Naturopathic Medicine 03/06/24 documented as of this encounter
--- OUTSIDE RECORDS SUMMARY | 2024-06-12 19:14 | XMS_ITS | Encounter Summary ---
Author Organization [facility] Address [address] [place] [address] Care Team Providers Care General Ophthalmologist Name Role Phone Unavailable Primary Care Provider Unavailabl e Encounter Details Date Type Department Care Team (Latest Contact Info) Description 01/24/2006 16:43 EDT Hospital Encounter [facility] Emergency Department - [facility] [address] [place], [place] [address] Emergency, MD Pinky Discharge Disposition: Home or Self Care Social History Tobacco Use Types Packs/Day Years Used Date Smoking Tobacco: Never Assessed Sex and Gender Information Value Date Recorded Sex Assigned at Not on file Legal Sex Male 18:38 EST Gender Identity Not on file Sexual Orientation Not on file documented as of this encounter Discharge Disposition Disposition Code Departure Means Destination Home or Self Care documented in this encounter Plan of Treatment Upcoming Encounters Date Type Department Care Team (Late st Contact Info) Description 08/24/2024 14:15 EDT Office Visit [facility] Rheumatology & Immunology [facility] [address] [place], [place] [phone] Chantel Juan MD [address] [place], [place] [phone] documented as of this encounter Procedures Procedure Name Priority Date/Time Associated Diagnosis Comments COMPLETE BLOOD COUNT AND DIFFERENTIAL Routine 05/16/2009 16:10 EST HIV 1/2 ANTIGEN AND ANTIBODY, 4TH GENERATION Routine 05/16/2009 16:10 EST PSA TOTAL, DIAGNOSTIC Routine 05/16/2009 16:10 EST LIPID PROFILE (INCLUDES CHOLESTEROL, TRIGLYCERIDES, HDL, LDL) Routine 05/16/2009 16:10 EST COMPREHENSIVE METABOLIC PANEL (CMP) Routine 05/16/2009 16:10 EST documented in this encounter Results * PSA (05/16/2009 16:10 EST) PSA 0.4 0 - 2.5 ng/ml [facility] Comment: Serum PSA concentration should not be interpreted as absolute evidence for the presence or absence of malignant disease. Assayed utilizing [employer] chemiluminescent technology. Values obtained by using different assay methods cannot be used interchangeably. 05/16/2009 16:1 0 EST 05/16/2009 22:18 EST Harris Rosenberg CHEMISTRY & BLOOD GAS ORDE [facility] Final Result Performing Organization Address City/State/[facility] Co de Phone Number [facility] [address] [place] [address] * LIPID PROFILE (INCLUDES CHOLESTEROL, TRIGLYCERIDES, HDL, LDL) (05/16/2009 16:10 EST) Cholesterol 172 mg/dl [facility] Comment: Desirable:<200 Borderline High:200-239 High:>vc=737 Triglycerides 108 35 - 160 mg/dl [facility] HDL 56 mg/dl [facility] Comment: Low:<40 High(Desirable):>or=60 LDL, Calculated 94 mg/dl [facility] Comment: Optimal:<100 Above optimal:100-129 Borderline High:130-159 High:160-189 Very High:>ri=369 Chol/HDL Ratio 3.1 [facility] Fasting? No [facility] 05/16/2009 16:1 0 EST 05/16/2009 22:18 EST Harris Rosenberg CHEMISTRY & BLOOD GAS ORDE [facility] Final Result Performing Organization Address City/[facility]/ZIP Co de Phone Number [facility] [address] [place] [address] * HIV ANTIBODY (BRYN) (05/16/2009 16:10 EST) [facility] HIV 1/2 Antibody Negative Reference Range: ??Negative [facility] 05/16/2009 16:1 0 EST 05/16/2009 22:18 EST Harris Chet DO IMMUNOLOGY AND SEROLOGY OR DERABLES Final Result Performing Organization Address [facility] Co de Phone Number [facility] [address] [place] [address] * COMPREHENSIVE METABOLIC PANEL (05/16/2009 16:10 EST) [facility] Potassium 4.1 3.5 - 5.0 mEq/L [facility] Sodium 140 136 - 145 mEq/L [facility] Chloride 101 96 - 110 mEq/L [facility] CO2 31 24 - 32 mEq/L [facility] Alkaline Phosphatase 50 38 - 126 U/L [facility] Bilirubin, Total <0.5 0.2 - 1.3 mg/dl [facility] AST 30 15 - 46 U/L [facility] ALT 27 21 - 72 U/L [facility] Albumin 4.4 3.4 - 4.9 g/dl [facility] Total Protein 7.2 6.5 - 8.3 g/dl [facility] Creatinine 0.94 0.7 - 1.5 mg/dl [facility] GFR, Calculated >60 ml/min/1.7 3m2 [facility] BUN 20 10 - 26 mg/dl [facility] Calcium 9.4 8.5 - 10.5 mg/dl [facility] Calculated Calcium 9.4 8.5 - 10.5 mg/dl [facility] Glucose, Serum 91 70 - 100 mg/dl [facility] Fasting? No [facility] 05/16/2009 16:1 0 EST 05/16/2009 22:18 EST Harris Rosenberg DO CHEMISTRY & BLOOD GAS ORDE [facility] Final Result [facility] [address] [place] [address] * HEMAGRAM AND DIFFERENTIAL (05/16/2009 16:10 EST) WBC 6.44 4.0 - 10.4 K/cmm [facility] RBC 4.39 4.36 - 5.78 M/cmm [facility] Hemoglobin 13.9 13.8 - 17.3 gm/dl [facility] HCT 39.9 39.5 - 50.2 % [facility] MCV 91 81 - 95 fl [facility] MCH 31.7 27.6 - 33.0 pg [facility] MCHC 34.9 32.8 - 36.4 gm/dl [facility] PLT 177 141 - 320 K/cmm [facility] RDW-CV 13.3 11.8 - 14.1 % [facility] Neutrophils 59.4 45.5 - 79.7 % [facility] Lymphocytes 29.8 15.0 - 46.8 % [facility] Monocytes 8.3 1.8 - 12.0 % [facility] Eosinophils 2.0 0.6 - 6.9 % [facility] Basophils 0.5 0.2 - 1.4 % [facility] ABS Neutrophils 3.83 2.20 - 8.85 K/cmm [facility] ABS Lymphs 1.92 1.09 - 3.30 K/cmm [facility] ABS Monocytes 0.53 0.1 - 0.8 K/cmm [facility] ABS Eosinophils 0.13 0.03 - 0.61 K/cmm [facility] ABS Basophils 0.03 0.01 - 0.11 K/cmm [facility] Type of Diff: Automated [facility] 05/16/2009 16:1 0 EST 05/16/2009 22:18 EST Harris Rosenberg DO PACKAGES & DNA PROBE ORDER TERE Final Result [facility] [address] [place] [address] documented in this encounter Visit Diagnoses Not on filedocumented in this encounter
--- OUTSIDE RECORDS SUMMARY | 2024-06-12 19:14 | XMS_ITS | Encounter Summary ---
Author Organization [facility] Address [address] [place] [address] Care Team Providers Care Recoverer Name Role Phone Kim Grimaldo MD Primary Care Provider Encounter Details Date Type Department Care Team (Late st Contact Info) Description 01/24/2006 Office Visit [facility] - [facility] [address] [place] [address] Bull Lopez MD [address] [facility], [facility] [address] [place] [address] Social History Tobacco Use Types Packs/Day Years Used Date Smoking Tobacco: Never Assessed Sex and Gender Information Value Date Recorded Sex Assigned at Not on file Legal Sex Male 18:38 EST Gender Identity Not on file Sexual Orientation Not on file documented as of this encounter Progress Notes * Bull Lopez MD - 08/07/2009 2959 EST Department - Physician Summary Registration Date/Time: 01/24/2006 16:43 Historian - patient. HISTORY OF PRESENT ILLNESS Chief complaint- ABDOMINAL PAIN. This started 3 - 4 days ago, but worseing over last 1-2 days and is still present (persistent worse). It was gradual in onset and has been waxing/waning. It is described as cramping and it is described as located in the epigastric area and left upper quadrant. No radiation. At its maximum, severity described as moderate. When seen in the E.D., severity described as moderate. Modifying factors - worsened by movement and walking. No nausea, loss of appetite, vomiting or diarrhea. No additional abdominal pain. Patient has not had similar symptoms previously. Not recently seen/assessed (has no pmd). REVIEW OF SYSTEMS No constipation, black stools, hematemesis, difficulty with urination or pain with urination. No urinary frequency, bloody stools, fever, headache or sore throat. No blurred vision, chest pain, difficulty breathing, cough or joint pain. No chills or back pain. PAST HISTORY No history of peptic ulcer . No history of gallstones. Medications: The patient's medications have been reviewed. Allergies: The patient's allergies have been reviewed. SOCIAL HISTORY Nonsmoker. No alcohol use. FAMILY HISTORY Negative (no hx of splnic or blood dyscrasias). ADDITIONAL NOTES The nursing notes have been reviewed. PHYSICAL EXAM Appearance: Alert. No acute distress. Vital Signs: Have been reviewed - hypertensive. Eyes: Pupils equal, round and reactive to light. Eyes normal inspection. No scleral icterus. ENT: Pharynx normal. Neck: Normal inspection. Neck supple. CVS: Normal heart rate and rhythm. Heart sounds normal. Pulses normal. Respiratory: No respiratory distress. Breath sounds normal. Abdomen: Mild tenderness in the left upper quadrant. Abdomen soft. No organomegaly or abdominal distention. The bowel sounds are not abnormal. Skin: Normal skin color and turgor. Skin warm. Extremities: Extremities exhibit normal ROM. No lower extremity edema. Neuro: Oriented X 3. No motor deficit. LABS, X-RAYS, AND EKG Urinalysis: Urine dipstick positive for small protein and small bilirubin. PROGRESS AND PROCEDURES E.D. Course: No relief with the GIC, has a normmal urine- bedside us shows likely nml sized spleen, normal liver, nml GB, and mildly ???cysytic kidneys symmetric bilat. no ff. I have recommended a cbc, and we discussed further testing, includig us on an outpt basis. Pt feelslike he is reassured and would like to go home. Remains mildly hypertensive . Patient/family counseled. Disposition: Discharged home in good condition and stable condition. Discharged home in good condition and improved condition. CLINICAL IMPRESSION Acute abdominal pain of undetermined cause . Small amount of proteinin the urine. INSTRUCTIONS No restrictions to activity. You appear to be mildly dehydrated, nd your urine shows a bit of protein, which may be normal for you. OTC Medications: Take ibuprofen (Advil, Nuprin, etc.) according to label instructions. Available over the counter. Follow-up: Return to the emergency department for fever, worseing pain, vomiting, back pain, other concerns. Follow-up: [facility], , [address] [facility], [facility]. Call for an appointment and follow up, especially if not better in 3-5 days. (Electronically signed by Daniel Lopez M.D. 01/26/2006 18:48) Department - Nursing Summary Registration Date/Time: 01/24/2006 16:43 TRIAGE Initial Assessment Triage time 16:44 . Acuity: LEVEL 3. BP: 173 / 99. HR: 68 regular. RR: 18. Temp: 36.2 tympanic. O2 saturation: room air. Alert. No acutedistress. --1645 Janine Bond R.N. Medications None. --1645 Janine Bond R.N. Allergies No known drug allergies. --1645 Janine Bond R.N. History Chief Complaint: ABDOMINAL PAIN. Onset (about 3-4 days ago). Pain level now: 6/10. Pain level (comes and goes, but worsening over the last few days). The patient has had nausea. No vomiting, diarrhea or fever. 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 PAST HX: ( Seizure x 1 (Feb 2001)). SOCIAL HX: Alcohol use (regularly (daily)). Nonsmoker. Arrived by private vehicle. Historian: patient. --1645 Janine Bond R.N. NURSING PROGRESS NOTES Progress Patient identifiers checked. Patient gowned. Call light placed in reach. Side rails up x 1. Bed placed in lowest position. Brakes of bed on. Friend at bedside. Patient ready for evaluation - --1648 Nate BrownM.TLaureano ( Dr. Lopez in to evaluate pt.). --1654 Martha Zepeda R.N. ( GI COCKTAIL - MYLANTA 30ML/VISCOUS LIDOCAINE 10ML P.O.). --1708 Martha Zepeda R.N. Urine dipstick, clean catch sample (SG >1.030, pH 6.0, Vasyl 1+, Ket Tr, Pro 1+, other neg). --1724 Lacho Grigsby R.N. ( Urine dip results reported to Dr. Lopez.). --172 Lacho Grigsby R.N. ( CORRECTION: ABOUT NOTES AT 1724 AND 1726 DOCUMENTED BY Melanie ZEPEDA RN.). --172 Martha Zepeda R.N. ( Pt. reports no relief obtained with GI cocktail.). --1734 Martha Zepeda R.N. ( Dr. Lopez at bedside to perform U/S.). --1750 Martha Zepeda R.N. DISPOSITION / DISCHARGE BP: 154 / 73. HR: 73. RR: 18. Patient reports pain level on departure as 6/10. Condition at departure: unchanged. No learning barriers present. Discharge instructions reviewed with the patient. Reviewed referrals for followup ([facility]). Patient verbalized understanding. Written instructions provided inEnglish. The patient was discharged home and accompanied by sports cartoonist. The patient left the Emergency Department ambulatory andvia private vehicle. Boat Officer driving. --1806 Pura Andres R.N., E.M.TLaureano Grigsby R.N. Locked/Released at 01/24/2006 18:07 by Martha Zepeda R.N. documented in this encounter Plan of Treatment Upcoming Encounters Date Type Department Care Team (Late st Contact Info) Description 08/24/2024 14:15 EDT Office Visit [facility] Rheumatology & Immunology [address] [address] Chantel Juan MD [address] [place], [place] [phone] documented as of this encounter Visit Diagnoses Not on filedocumented in this encounter Care Teams Recoverer Relationship Specialty Start Date End Date Kim Grimaldo MD [address] [address] PCP - General 05/22/09 03/02/11 documented as of this encounter
--- OUTSIDE RECORDS SUMMARY | 2024-06-12 19:14 | XMS_ITS | Encounter Summary ---
Author Organization [facility] Address [address] [place] [address] Care Team Providers Care Patient Access Manager Name Role Phone Unavailable Primary Care Provider Unavailabl e Encounter Details Date Type Department Care Team (Late st Contact Info) Description 05/16/2009 11:16 EST - 05/16/2009 11:17 EST Hospital Encounter [facility] - Other [address] [place] [address] Ishmael Rosenberg MD [address] [place] [phone] Discharge Disposition: Home or Self Care Social [...] [facility] [place] [address] [place], [place] [address] Chantel Juan MD [address] [place], [place] [phone] documented as of this encounter Visit Diagnoses Not on filedocumented in this encounter
--- OUTSIDE RECORDS SUMMARY | 2024-06-12 19:14 | XMS_ITS | Encounter Summary ---
Author Organization [facility] [place] [address] Care Team Providers Care Jewel Waxer Name Role Phone Daniel Gannon ND Primary Care Provider [phone] Encounter Details Date Type Department Care Team (Late st Contact Info) Description 06/01/2024 Interpretation Only [facility] [address] [place] [phone] Barrington Martinez MD [address] [place] [phone] Social History Tobacco Use Types Packs/Day Years Used Date Smoking Tobacco: Never Assessed Sex and Gender Information Value Date Recorded Sex Assigned at Not on file Gender Identity Not on file Sexual Orientation Not on file documented as of this encounter Plan of Treatment Not on file documented as of this encounter Procedures Procedure Name Priority Date/Time Associated Diagnosis Comments MRI LUMBAR SPINE WITH/WO CONTRAST STAT 06/01/2024 6:31 PM EST documented in this encounter Results * MRI Lumbar Spine wwo Contrast (06/01/2024 6:31 PM EST) PT CLASS I RAD ADMITDTTM [id number] RAD PT RAD INFO [id number]^MARTINEZ^V ISHAL RAD EXAM DESC MRLSWWO^MR LS SPINE WWO CONTRAST^RIS RAD WORKSTATION ID [id number] RAD Anatomical Region Laterality Modality L-spine Magnetic Resonan [...] who have questions please contact the health direct care specialist that requested your imaging first. ? Electronically signed by: Ubaldo Kirkland DO, [facility] ??([phone]), at 06/01/2024 7:50 PM Narrative 06/01/2024 7:50 [...] of disc height with irregularity of the M6dyvnahts endplate and T9 superior endplate. There is [...] patients who have questions please contactthe health direct care specialist that requested your imaging first. Electronically signed by: Ubaldo Kirkland DO, [facility]([phone]), at 06/01/2024 7:50 PM Barrington Martinez MD IMBrenda MRI ORDERABLES documented in this encounter Visit Diagnoses Not on filedocumented in this encounter Care Teams Jewel Waxer Relationship Specialty Start Date End Date Daniel Gannon ND [address] [place] [address] [place] [address] PCP - General Naturopathic Medicine 03/06/24 documented as of this encounter
--- OUTSIDE RECORDS SUMMARY | 2024-06-12 19:14 | XMS_ITS | Encounter Summary ---
Author Organization [facility] [place] [address] Care Team Providers Care Records Management Assistant Name Role Phone Daniel Gannon ND Primary Care Provider [phone] Encounter Details Date Type Department Care Team (Late st Contact Info) Description 06/01/2024 Interpretation Only [facility] [address] [place] [phone] Barrington Martinez MD [address] [place] [address] [id number] Social History Tobacco Use Types Packs/Day Years Used Date Smoking Tobacco: Never Assessed Sex and Gender Information Value Date Recorded Sex Assigned at Not on file Gender Identity Not on file Sexual Orientation Not on file documented as of this encounter Plan of Treatment Not on file documented as of this encounter Procedures Procedure Name Priority Date/Time Associated Diagnosis Comments MRI CERVICAL SPINE WITH/WO CONTRAST STAT 06/01/2024 6:31 PM EST documented in this encounter Results * MRI Cervical Spine wwo Contrast (06/01/2024 6:31 PM EST) PT CLASS I RAD ADMITDTTM [id number] RAD PT RAD INFO [id number]^MARTINEZ^V ISHAL RAD EXAM DESC MRCSPWWO^MR CSPINE WWO CONTRAST^RIS RAD WORKSTATION ID [id number] RAD Anatomical Region Laterality Modality C-spine Magnetic Resonan [...] who have questions please contact the health customer care team coach that requested your imaging first. ? Electronically signed by: Ubaldo Kirkland DO, [facility] ??([phone]), at 06/01/2024 7:50 PM Narrative 06/01/2024 7:50 [...] of disc height with irregularity of the E6wappwkbd endplate and T9 superior endplate. There is [...] patients who have questions please contactthe health customer care team coach that requested your imaging first. Electronically signed by: Ubaldo Kirkland DO, [facility]([phone]), at 06/01/2024 7:50 PM Barrington Martinez MD IMBrenda MRI ORDERABLES documented in this encounter Visit Diagnoses Not on filedocumented in this encounter Care Teams Records Management Assistant Relationship Specialty Start Date End Date Daniel Gannon ND [address] [place] [address] [place] [address] PCP - General Naturopathic Medicine 03/06/24 documented as of this encounter
--- OUTSIDE RECORDS SUMMARY | 2024-06-12 19:14 | XMS_ITS | Encounter Summary ---
Author Organization [facility] [place] [address] Care Team Providers Care Kiln Stoker Name Role Phone Daniel Gannon ND Primary Care Provider [phone] Encounter Details Date Type Department Care Team (Late st Contact Info) Description 06/02/2024 Interpretation Only [facility] [address] [place] [phone] Jeremy Vela MD [address] [place] [id number] Social History Tobacco Use Types Packs/Day Years Used Date Smoking Tobacco: Never Assessed Sex and Gender Information Value Date Recorded Sex Assigned at Not on file Gender Identity Not on file Sexual Orientation Not on file documented as of this encounter Plan of Treatment Not on file documented as of this encounter Procedures Procedure Name Priority Date/Time Associated Diagnosis Comments CT TABLE [place]ART[place] W CONTRAST Routine 06/02/2024 3:14 PM EST documented in this encounter Results * CT Angiogram [place] (06/02/2024 3:14 PM EST) PT CLASS I RAD ADMITDTTM [id number] RAD PT RAD INFO [id number]^JUDY ^JEREMY^B RAD EXAM DESC CTCOW^CT ANGIOGRAPHY HEAD WWO CONTRAST^RIS RAD WORKSTATION ID [id number] RAD Anatomical Region Laterality Modality Neck, Head Computed [...] care aide that requested your imaging first. ? Electronically signed by: Ubaldo Kirkland DO [facility] ??([phone]), at 06/02/2024 3:37 PM Narrative 06/02/2024 3:37 [...] patients who have questions please contactthe health home care aide that requested your imaging first. Electronically signed by: Ubaldo Kirkland DO, [facility]([phone]), at 06/02/2024 3:37 PM Jeremy Vela MD IMG CT ORDERABLES documented in this encounter Visit Diagnoses Not on filedocumented in this encounter Care Teams Kiln Stoker Relationship Specialty Start Date End Date Daniel Gannon ND [address] [place] [address] [place] [address] PCP - General Naturopathic Medicine 03/06/24 documented as of this encounter
--- OUTSIDE RECORDS SUMMARY | 2024-06-12 19:14 | XMS_ITS | Encounter Summary ---
Author Organization [facility] Address [address] [place] [address] Care Team Providers Care Dye Operator Name Role Phone Jayshree Gutierrez MD Primary Care Provider Reason for Visit * Reason Comments Laceration Pt to the emergency department with concerns related to a lip laceration that happened last night while on outside decking. States that he slipped while walking across slippery deck. Area still bleeding this am. Unsure of last tetanus. Encounter Details Date Type Department Care Team (Late st Contact Info) Description 12/17/2012 9:13 EDT - 12/17/2012 10:40 EDT Emergency [facility] Emergency Department - [place] [address], [place] [id number] Betina Pederson PA [address] [place] [address] Emergency, MD Pinky Laceration of lip (Primary Dx) Discharge Disposition: Home or Self [...] Sign Reading Time Taken Comments Blood Pressure 130/70 12/17/2012923 EDT Pulse - - Temperature 36.3 ??C (97.3 ??F) 12/17/2012922 EDT Respiratory Rate 16 12/17/2012922 EDT Oxygen Saturation 99% 12/17/2012922 EDT Inhaled Oxygen Concentration - - Weight 88.5 kg (195 lb) 12/17/2012922 EDT Height 198.1 cm (6' 6) 12/17/2012922 EDT Body Mass Index 22.53 12/17/2012922 EDT documented in this encounter Discharge Instructions * Discharge Instructions* NighatBetina - 12/17/2012 10:34 EDT Keep the wound clean and dry until tomorrow morning. Thereafter wash the wound twice daily gently with warm water and soap. Blot dry to avoid disruptingthe sutures. Keep it covered anytime it is exposed to a potentially dirty environment. Have the sutures removed by a nurse or other healthcare provider in approximately 3-5 days. If any signs of infection should develop such as increased redness, increased swelling, purulent discharge, red streaking, or other concerns, followup with your regular provider or return to the emergency room. documented in this encounter Discharge Disposition Disposition Code Departure Means Destination Home or Self Care Walk-out Home documented in this encounter ED Notes * NighatBetina - 12/17/2012 1031 EDTAssociated Order(s): LACERATION REPAIR Images from the original note were not included. DOS: 12/17/2012 Chief Complaint Patient presents with ??? Laceration Pt to the emergency department with concerns related to a lip laceration that happened last night while on outside decking. States that he slipped while walking across slippery deck. Area still bleeding this am. Unsure of last tetanus. The patient is a 32 y.o. male who presents today with Laceration HPI Comments: Patient presents for evaluation of a lip laceration which occurred late last night. Patient states that he tripped on his deck, fell forward and struck his upper lip on the corner of his grill. He denied pain or difficulty controlling the bleeding including sustaining other injuries. Patient is here this morning as his spouse is concerned that the wound may be repair. Tetanus statusis unknown. The history is provided by the patient and the spouse. Review of Systems HENT: Negative for neck pain. Skin: Positive for wound. Neurological: Negative for headaches. Hematological: Does not bruise/bleed easily. All other systems reviewed and are negative. Past Medical History Diagnosis Date ??? HTN (hypertension) ??? Cardiac murmur Past Surgical History Procedure Date ??? Nasal septum surgery No Known Allergies History Substance Use Topics ??? Smoking status: Former Smoker Quit date: 03/03/2003 ??? Smokeless tobacco: Never Used ??? Alcohol Use: No No family history on file. Vital Signs Temp: 36.3 ??C (97.3 ??F) Temp src: Tympanic Heart Rate: 58 BPM Resp: 16 SpO2: 99 % SpCO: 6 % BP: 130/70 mmHg Physical Exam Nursing note and vitals reviewed. Constitutional: He is oriented to person, place, and time. He appears well- developed and well-nourished. No distress. HENT: Head: Normocephalic and atraumatic. No trismus in the jaw. Right Ear: External ear normal. Left Ear: External ear normal. Mouth/Throat: Uvula is midline, oropharynx is clear and moist and mucous membranes are normal. 1cm superificial angulated laceration involving the vermilion border. Eyes: Conjunctivae normal and EOM are normal. Pupils are equal, round, and reactive to light. Neck: Normal range of motion. Neck supple. Pulmonary/Chest: Effort normal. Musculoskeletal: Normal range of motion. Neurological: He is alert and oriented to person, place, and time. He has normal reflexes. Skin: Skin is warm and dry. He is not diaphoretic. Psychiatric: He has a normal mood and affect. His behavior is normal. Radiology orders: None Imaging Results None Laceration Date/Time: 12/17/2012 10:31 Performed by: BETINA PEDERSON Authorized by: BETINA PEDERSON Consent: Verbal consent obtained. Risks and benefits: risks, benefits and alternatives were discussed Consent given by: patient Required items: required blood products, implants, devices, and special equipment available Patient identity confirmed: verbally with patient and arm band Time out: Immediately prior to procedure a time out was called to verify the correct patient, procedure, equipment, system support developer and site/side marked as required. Body area: head/neck Location details: upper lip Full thickness lip laceration: no Kali border involved: yes Lip laceration height: up to half vertical height Laceration length: 1 cm Foreign bodies: no foreign bodies Tendon involvement: none Nerve involvement: none Vascular damage: no Anesthesia: local infiltration Local anesthetic: bupivacaine 0.25% without epinephrine Anesthetic total: 1 ml Patient sedated: no Preparation: Patient was prepped and draped in the usual sterile fashion. Irrigation solution: saline Irrigation method: tap Amount of cleaning: standard Debridement: none Degree of undermining: none Skin closure: 6-0 Prolene Number of sutures: 3 Technique: simple Approximation: close Approximation difficulty: simple Lip approximation: kali border well aligned Patient tolerance: Patient tolerated the procedure well with no immediate complications. ED Course: A medical screening exam was performed. Vital signs stable, afebrile. Patient has a laceration sustained just under 12 hours ago. Wound was cleansed and repaired without difficulty with close approximation of the wound edges. Tetanus status was updated and wound care was reviewed. Disposition: Discharged The patient's pain was managed to an adequate level weighing risk vs. benefit of further medications. Upon departure from the Emergency Department, the patient's pain was 0 on a zero to ten scale. Condition at departure from the Emergency Department: Good Discharge Prescriptions No Discharge Prescriptions for this patient MDM Number of Diagnoses or Management Options Laceration of lip: Diagnosis management comments: 2 Amount and/or Complexity of Data Reviewed Decide to obtain previous medical records or to obtain history from someone other than the patient:yes Obtain history from someone other than the patient: yes (spouse) Review and summarize past medical records: yes Final diagnoses: Laceration of lip PCP: MD Kash KAPLAN was available for supervision. 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, SCAN 2 - 12/20/2012 0931 EDT documented in this encounter Plan of Treatment Upcoming Encounters Date Type Department Care Team (Late st Contact Info) Description 08/24/2024 14:15 EDT Office Visit [facility] Rheumatology & Immunology - [facility] [address] [place] [address] Chantel Juan MD [address] [place], [place] [phone] documented as of this encounter Procedures Procedure Name Priority Date/Time Associated Diagnosis Comments LACERATION REPAIR Routine 12/17/2012 10: 53 EDT documented in this encounter Results * LACERATION REPAIR (12/17/2012 10:53 EDT) Narrative [facility] EKG - 12/17/2012 10:53 EDT Betina Pederson PA ? 12/17/2012 10:53 DOS: 12/17/2012 Chief Complaint Patient presents with ? ? Laceration ??Pt to the emergency department with concerns related to a lip laceration that happened last night while on outside decking. States that he slipped while walking across slippery deck. Area still bleeding this am. Unsure of last tetanus. ?? The patient is a 32 y.o. male who presents today with Laceration HPI Comments: Patient presents for evaluation of a lip laceration which occurred late last night. ??Patient states that he tripped on his deck, fell forward and struck his upper lip on the corner of his grill. ??He denied pain or difficulty controlling the bleeding including sustaining other injuries. ??Patient is here this morning as his spouse is concerned that the wound may be repair. ??Tetanus status is unknown. The history is provided by the patient and the spouse. Review of Systems HENT: Negative for neck pain. ?? Skin: Positive for wound. Neurological: Negative for headaches. Hematological: Does not bruise/bleed easily. All other systems reviewed and are negative. Past Medical History Diagnosis Date ? ? HTN (hypertension) ? Cardiac murmur ?? Past Surgical History Procedure Date ? ? Nasal septum surgery ?? No Known Allergies History Substance Use Topics ? ? Smoking status: Former Smoker ??Quit date: 03/03/2003 ? ? Smokeless tobacco: Never Used ? ? Alcohol Use: No No family history on file. Vital Signs Temp: 36.3 ??C (97.3 ??F) Temp src: Tympanic Heart Rate: 58 BPM Resp: 16 SpO2: 99 % SpCO: 6 % BP: 130/70 mmHg Physical Exam Nursing note and vitals reviewed. Constitutional: He is oriented to person, place, and time. He appears well-developed and well-nourished. No distress. HENT: Head: Normocephalic and atraumatic. No trismus in the jaw. Right Ear: External ear normal. Left Ear: External ear normal. Mouth/Throat: Uvula is midline, oropharynx is clear and moist and mucous membranes are normal. ? 1cm superificial angulated laceration involving the vermilion border. ?? Eyes: Conjunctivae normal and EOM are normal. Pupils are equal, round, and reactive to light. Neck: Normal range of motion. Neck supple. Pulmonary/Chest: Effort normal. Musculoskeletal: Normal range of motion. Neurological: He is alert and oriented to person, place, and time. He has normal reflexes. Skin: Skin is warm and dry. He is not diaphoretic. Psychiatric: He has a normal mood and affect. His behavior is normal. Radiology orders: None Imaging Results ?? None Laceration Date/Time: 12/17/2012 10:31 Performed by: BETINA PEDERSON Authorized by: BETINA PEDERSON Consent: Verbal consent obtained. Risks and benefits: risks, benefits and alternatives were discussed Consent given by: patient Required items: required blood products, implants, devices, and special equipment available Patient identity confirmed: verbally with patient and arm band Time out: Immediately prior to procedure a time out was called to verify the correct patient, procedure, equipment, system support developer and site/side marked as required. Body area: head/neck Location details: upper lip Full thickness lip laceration: no [place] border involved: yes Lip laceration height: up to half vertical height Laceration length: 1 cm Foreign bodies: no foreign bodies Tendon involvement: none Nerve involvement: none Vascular damage: no Anesthesia: local infiltration Local anesthetic: bupivacaine 0.25% without epinephrine Anesthetic total: 1 ml Patient sedated: no Preparation: Patient was prepped and draped in the usual sterile fashion. Irrigation solution: saline Irrigation method: tap Amount of cleaning: standard Debridement: none Degree of undermining: none Skin closure: 6-0 Prolene Number of sutures: 3 Technique: simple Approximation: close Approximation difficulty: simple Lip approximation: kali border well aligned Patient tolerance: Patient tolerated the procedure well with no immediate complications. ED Course: ?? A medical screening exam was performed. ??Vital signs stable, afebrile. ??Patient has a laceration sustained just under 12 hours ago. ??Wound was cleansed and repaired without difficulty with close approximation of the wound edges. ??Tetanus status was updated and wound care was reviewed. Disposition: Discharged The patient's pain was managed to an adequate level weighing risk vs. benefit of further medications. Upon departure from the Emergency Department, the patient's pain was 0 on a zero to ten scale. Condition at departure from the Emergency Department: Good Discharge Prescriptions No Discharge Prescriptions for this patient MDM Number of Diagnoses or Management Options Laceration of lip: Diagnosis management comments: 2 Amount and/or Complexity of Data Reviewed Decide to obtain previous medical records or to obtain history from someone other than the patient: yes Obtain history from someone other than the patient: yes (spouse) Review and summarize past medical records: yes Final diagnoses: Laceration of lip PCP: ??MD Kash KAPLAN was available for supervision. 12/17/2012 10:39 Procedure Note Betina Pederson - 12/17/2012 10:31 EDT Images from the original note were not included. DOS: 12/17/2012 Chief Complaint Patient presents with ? ? Laceration Pt to the emergency department with concerns related to a lip lacerationthat happened last night while on outside decking. States that he slippedwhile walking across slippery deck. Area still bleeding this am. Unsure oflast tetanus. The patient is a 32 y.o. male who presents today with Laceration HPI Comments: Patient presents for evaluation of a lip laceration whichoccurred late last night. Patient states that he tripped on his deck,fell forward and struck his upper lip on the corner of his grill. Hedenied pain or difficulty controlling the bleeding including sustainingother injuries. Patient is here this morning as his spouse is concernedthat the wound may be repair. Tetanus status is unknown. The history is provided by the patient and the spouse. Review of Systems HENT: Negative for neck pain. Skin: Positive for wound. Neurological: Negative for headaches. Hematological: Does not bruise/bleed easily. All other systems reviewed and are negative. Past Medical History Diagnosis Date ? ? HTN (hypertension) ? ? Cardiac murmur Past Surgical History Procedure Date ? ? Nasal septum surgery No Known Allergies History Substance Use Topics ? ? Smoking status: Former Smoker Quit date: 03/03/2003 ? ? Smokeless tobacco: Never Used ? ? Alcohol Use: No No family history on file. Vital Signs Temp: 36.3 ??C (97.3 ??F) Temp src: Tympanic Heart Rate: 58 BPM Resp: 16 SpO2: 99 % SpCO: 6 % BP: 130/70 mmHg Physical Exam Nursing note and vitals reviewed. Constitutional: He is oriented to person, place, and time. He appearswell- developed and well-nourished. No distress. HENT: Head: Normocephalic and atraumatic. No trismus in the jaw. Right Ear: External ear normal. Left Ear: External ear normal. Mouth/Throat: Uvula is midline, oropharynx is clear and moist and mucousmembranes are normal. 1cm superificial angulated laceration involving the vermilion border. Eyes: Conjunctivae normal and EOM are normal. Pupils are equal, round, andreactive to light. Neck: Normal range of motion. Neck supple. Pulmonary/Chest: Effort normal. Musculoskeletal: Normal range of motion. Neurological: He is alert and oriented to person, place, and time. He hasnormal reflexes. Skin: Skin is warm and dry. He is not diaphoretic. Psychiatric: He has a normal mood and affect. His behavior is normal. Radiology orders: None Imaging Results None Laceration Date/Time: 12/17/2012 10:31 Performed by: BETINA PEDERSON Authorized by: BETINA PEDERSON Consent: Verbal consent obtained. Risks and benefits: risks, benefits and alternatives were discussed Consent given by: patient Required items: required blood products, implants, devices, and specialequipment available Patient identity confirmed: verbally with patient and arm band Time out: Immediately prior to procedure a time out was called to verifythe correct patient, procedure, equipment, system support developer and site/sidemarked as required. Body area: head/neck Location details: upper lip Full thickness lip laceration: no Kali border involved: yes Lip laceration height: up to half vertical height Laceration length: 1 cm Foreign bodies: no foreign bodies Tendon involvement: none Nerve involvement: none Vascular damage: no Anesthesia: local infiltration Local anesthetic: bupivacaine 0.25% without epinephrine Anesthetic total: 1 ml Patient sedated: no Preparation: Patient was prepped and draped in the usual sterilefashion. Irrigation solution: saline Irrigation method: tap Amount of cleaning: standard Debridement: none Degree of undermining: none Skin closure: 6-0 Prolene Number of sutures: 3 Technique: simple Approximation: close Approximation difficulty: simple Lip approximation: kali border well aligned Patient tolerance: Patient tolerated the procedure well with no immediatecomplications. ED Course: A medical screening exam was performed. Vital signs stable, afebrile.Patient has a laceration sustained just under 12 hours ago. Wound wascleansed and repaired without difficulty with close approximation of thewound edges. Tetanus status was updated and wound care was reviewed. Disposition: Discharged The patient's pain was managed to an adequate level weighing risk vs.benefit of further medications. Upon departure from the EmergencyDepartment, the patient's pain was 0 on a zero to ten scale. Condition at departure from the Emergency Department: Good Discharge Prescriptions No Discharge Prescriptions for this patient MDM Number of Diagnoses or Management Options Laceration of lip: Diagnosis management comments: 2 Amount and/or Complexity of Data Reviewed Decide to obtain previous medical records or to obtain history fromsomeone other than the patient: yes Obtain history from someone other than the patient: yes (spouse) Review and summarize past medical records: yes Final diagnoses: Laceration of lip PCP: MD Kash KAPLAN was available for supervision. 12/17/2012 10:39 us Betina IRBY PROCEDURE/MINOR SURGICAL ORDER TERE Edited [facility] EKG documented in this encounter Visit Diagnoses Diagnosis Laceration of lip- Primary Open wound of lip, without mention of complication documented in this encounter Active and Recently Administered Medications Orders Medications Ordered That [place] ht Not Have Been Administered Count Last Ordered Date First Ordered Date Diphtheria, Pertussis(Acel), Tetanus Vaccine (PF) (BOOSTRIX) 2.5-8-5 Lf-mcg-Lf/0.5mL injection Suspension 1 12/17/2012 documented in this encounter Care Teams Dye Operator Relationship Specialty Start Date End Date Jayshree Gutierrez MD [address] [place] [phone] PCP - General 03/03/11 03/05/15 documented as of this encounter
--- OUTSIDE RECORDS SUMMARY | 2024-06-12 19:14 | XMS_ITS | Encounter Summary ---
Author Organization [facility] [place] [address] Care Team Providers Care Green Hide Inspector Name Role Phone Daniel Gannon ND Primary Care Provider [phone] Encounter Details Date Type Department Care Team (Late st Contact Info) Description 03/14/2024 Interpretation Only [facility] in [facility] [address] [place] [phone] Barrington Martinez MD [address] [place] [address] [phone] Social History Tobacco Use Types Packs/Day Years [...] Comments US DVT LOWER EXTREMITY COMPLETE BILATERAL STAT 03/14/2024 3:37 PM EDT documented in this encounter Results * US DVT Lower Extremity Complete Bilateral (03/14/2024 3:37 PM EDT) PT CLASS O RAD ADMITDTTM [id number] RAD PT RAD INFO [id number]^MARTINEZ^V ISHAL RAD EXAM DESC UDVT2^US DVT BILATERAL^RIS RAD WORKSTATION ID [id number] [facility] Anatomical Region Laterality Modality Arm, Shoulder, Elbow, Forear m, Wrist, Hand, Hip, Thigh, Knee, Leg, Ankle, Foot Ultrasound 03/14/2024 3:40 PM EDT Impressions 03/14/2024 4:14 PM EDT Impression: No evidence of acute deep venous thrombosis. Thank you for letting us participate in the care of this patient. If you are a health care provider and have any questions regarding this report, please contact the number above. For patients who have questions, please contact the health director of medicare that requested your imaging first. ?Mario Funes, Staff Physician Electronically Signed Final Report ?? 03/14/2024 04:13 pm Narrative 03/14/2024 4:14 PM EDT Peripheral Venous Duplex ?(Signed Final 03/14/2024 04:13 pm) PATIENT INFO: ID #: ? [id number] ? : [birth year] (44 yrs)(M) Name: ? FELICIANONIKOLE MOORE ? Visit Date:03/14/2024 03:40 pm PERFORMED BY: Attending: ?Marin FORRESTER, Mario Wilkinson Performed By: ? Yair RDMS, RVT, RT, Ramandeep Referred By: ?BARRINGTON MARTINEZ Location: ? [facility] SERVICE(S) PROVIDED: USDVT2 - DVT Lower Extremity Complete Bilateral - [id number] INDICATIONS: Reason US Extremity: ??Swelling ??Add'l Info: b/l LE; Stroke. ?DVT TECHNIQUE/SCAN QUALITY: Technique: ? [place] scale, color [...] ? Yes PTV: ?No ? Yes ?Yes Peron: ?No ? Yes GSV: ?No ? Yes [...] ? Yes PTV: ?No ? Yes ?Yes Peron: ?No ? Yes GSV: ?No ? Yes ?Yes Procedure Note Mario Funes MD - 03/14/2024 Peripheral Venous Duplex (Signed Final 03/14/2024 04:13pm) PATIENT INFO: ID #: [id number] : [birth year] (44 yrs)(M) Name: FELICIANO MOORE Visit Date:03/14/2024 03:40 pm PERFORMED BY: Attending: Mario Funes MD Performed By: Yair FITZGERALD, RVT, RTRamandeep Referred By: BARRINGTON MARTINEZ Location: [facility] SERVICE(S) PROVIDED: USDVT2 - DVT Lower Extremity Complete Bilateral - [id number] INDICATIONS: Reason US Extremity: Swelling Add'l Info: [...] Peron: No Yes GSV: No Yes Yes IMPRESSION Impression: No evidence of acute deep venous thrombosis. Thank you for letting us participate in the care of this patient. If you are a health care provider and have any questions regarding this report, please contact the number above. For patients who have questions, please contact the health director of medicare that requested your imaging first. Mario Funes, Staff Physician Electronically Signed Final Report 03/14/2024 04:13 pm Barrington Martinez MD IMG US GEN ORDERABLE S documented in this encounter Visit Diagnoses Not on filedocumented in this encounter Care Teams Green Hide Inspector Relationship Specialty Start Date End Date Daniel Gannon ND [address] [place] [address] [place] [address] PCP - General Naturopathic Medicine 03/06/24 documented as of this encounter
--- OUTSIDE RECORDS SUMMARY | 2024-06-12 19:14 | XMS_ITS | Encounter Summary ---
Author Organization [facility] [place] [address] Care Team Providers Care Pole Peeler Name Role Phone Daniel Gannon ND Primary Care Provider [phone]- [phone] Encounter Details Date Type Department Care Team (Late st Contact Info) Description 06/01/2024 Interpretation Only [address] [phone] Barrington Mccurdy MD [address] [place] [address] [phone] Social History Tobacco Use Types Packs/Day Years Used Date Smoking Tobacco: Never Assessed Sex and Gender Information Value Date Recorded Sex Assigned at Not on file Gender Identity Not on file Sexual Orientation Not on file documented as of this encounter Plan of Treatment Not on file documented as of this encounter Visit Diagnoses Not on filedocumented in this encounter Care Teams Pole Peeler Relationship Specialty Start Date End Date Daniel Gannon ND [address] [place] [address] [place] [address] PCP - General Naturopathic Medicine 03/06/24 documented as of this encounter
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
--- OUTSIDE RECORDS SUMMARY | 2024-06-12 19:14 | XMS_ITS | Encounter Summary ---
Author Organization [facility] [place] [address] Care Team Providers Care Financial Advisor Name Role Phone Daniel Gannon ND Primary Care Provider [phone] Encounter Details Date Type Department Care Team (Late st Contact Info) Description 06/02/2024 Interpretation Only [facility] in [facility] [address] [place] [phone] Jeremy Vela MD [address] [place] [place] [address] [phone] Social History Tobacco Use Types Packs/Day Years [...] Associated Diagnosis Comments MRI BRAIN WO CONTRAST Routine 06/02/2024 3:18 PM EST documented in this encounter Results * MRI Brain wo Contrast (06/02/2024 3:18 PM EST) PT CLASS I RAD ADMITDTTM [id number] RAD PT RAD INFO [id number]^JUDY ^JEREMY^B RAD EXAM DESC MRBWO^MR BRAIN WO CONTRAST^RIS RAD WORKSTATION ID [id number] RAD Anatomical Region Laterality Modality Head Magnetic [...] who have questions please contact the health before and after school daycare worker that requested your imaging first. ? Narrative 06/02/2024 3:41 PM EST EXAMINATION: MR [...] patients who have questions please contactthe health before and after school daycare worker that requested your imaging first. Jeremy Vela MD IMG MRI ORDERABLES documented in this encounter Visit Diagnoses Not on filedocumented in this encounter Care Teams Financial Advisor Relationship Specialty Start Date End Date Daniel Gannon ND [address] [place] [address] [place] [address] PCP - General Naturopathic Medicine 03/06/24 documented as of this encounter
--- OUTSIDE RECORDS SUMMARY | 2024-06-12 19:14 | XMS_ITS | Encounter Summary ---
Author Organization [facility] Address [facility] [place] [address] Care Team Providers Care Corporate Licensed Broker Name Role Phone Daniel Gannon ND Primary Care Provider [phone] Encounter Details Date Type Department Care Team (Late st Contact Info) Description 06/01/2024 Telephone Cardiology at [address] [place] [phone] Alex Raymond PA [facility] [place] [address] Social History Tobacco Use Types Packs/Day Years Used Date Smoking Tobacco: Never Assessed Sex and Gender Information Value Date Recorded Sex Assigned at Not on file Gender Identity Not on file Sexual Orientation Not on file documented as of this encounter Miscellaneous Notes * Telephone Encounter - Alex Raymond PA - 06/01/2024 2:52 PM EST Images from the original note were not included. Cardiology Access Note 06/01/2024 Feliciano Moore Initial Contact Date: 06/01/2024 Contact time: 2:52 PM Referring: [facility]. Diana Vela MD. Past Medical History: Aortic Regurgitation lifelong, CVA months ago unclear etiology at time. Brief History: Feliciano Moore is a 44 y.o. male who presented to [facility] after positive blood cultures that was performed for evaluation of night sweats which he reported to neurology. He has been afebrile. TTE reportedly with anterior mitral valve vegetation. No signs or symptoms of CHF. C ardiology Dr. Crawford recommended transfer. Vital sign: 36.1 - 84 - 18 - 125/73 - 95 RA Pertinent Diagnostic Findings: Labs: Blood culures + Gram + Cooci Strep , CRP 51, Ded Rate 35 EKG: Unavailable TTE: Mitral valve vegetation. OSH Interventions: IV vancomycin Assessment & Plan: 44 y.o. male h/o longstanding AI and recent CVA 1 month prior presented after abnormal outpatient blood cultures performed for night sweats and found to have mitral valve endocarditis on TTE. He is absent signs/symptoms of CHF. He should undergo PERI for further evaluation of mitral valve as well as longstanding AI. OSH performs PERI and OSH provider will reconnect with cardio logy at [facility] to arrange PERI. For transfer considerations, they will call back to connect with medicine service for ongoing management of bacteremia/endocarditis with consult to cardiology and cardiac surgery. If clinical deterioration from a cardiovascular standpoint, will reconnect with [facility] cardi[facility]. Above recommendations were based on my discussion with above listed OSH provider. I have not personally interviewed or examined this patient. I encouraged them to contact us if there is any change insymptoms, decision- making, or further need for guidance in management. Alex Raymond PA-C Access Pager [phone] 06/01/2024 Access data collection 1. provider completing request: SUREKHA King 2. Requesting location: as above 3. Cv-oao-fumpv consult duration: 10 min 4. Total consult duration (above plus EHR review, image review, discussion with other clinicians, documentation, etc.): 25 min 5. Consult for: [x] medical advice [] operational/administrative consult (for example--retrieve information from e[facility] or need to schedule/change an appointment, etc) 6. Was this consult in lieu of transfer: Yes 7. Why did the hospital need a consult at this time: [] No access to cardiology at their hospital [] Cardiology available some of the time but not now [] Cardiology is available but this case was beyond their local level of comfort [x] I don't know documented in this encounter Plan of Treatment Not on file documented as of this encounter Visit Diagnoses Not on filedocumented in this encounter Care Teams Corporate Licensed Broker Relationship Specialty Start Date End Date Daniel Gannon ND [address] [place] [address] [place] [address] PCP - General Naturopathic Medicine 03/06/24 documented as of this encounter
--- OUTSIDE RECORDS SUMMARY | 2024-06-12 19:14 | XMS_ITS | Encounter Summary ---
Author Organization [facility] [place] [address] Care Team Providers Care Python Consultant Name Role Phone Daniel Gannon ND Primary Care Provider +- [phone] Encounter Details Date Type Department Care Team (Late st Contact Info) Description 06/01/2024 Interpretation Only [address] [phone] Barrington Mccurdy MD [address] [place] [phone] Social History Tobacco Use Types Packs/Day Years Used Date Smoking Tobacco: Never Assessed Sex and Gender Information Value Date Recorded Sex Assigned at Not on file Gender Identity Not on file Sexual Orientation Not on file documented as of this encounter Plan of Treatment Not on file documented as of this encounter Visit Diagnoses Not on filedocumented in this encounter Care Teams Python Consultant Relationship Specialty Start Date End Date Daniel Gannon ND [address] [place] [address] [place] [address] PCP - General Naturopathic Medicine 03/06/24 documented as of this encounter
--- OUTSIDE RECORDS SUMMARY | 2024-06-12 19:14 | XMS_ITS | Encounter Summary ---
Author Organization [facility] [place] [address] Care Team Providers Care Senior Care Manager Name Role Phone Daniel Gannon ND Primary Care Provider [phone] Encounter Details Date Type Department Care Team (Late st Contact Info) Description 05/31/2024 Interpretation Only [facility] in [address] [phone] Carla Palmer MD [address] [place] [phone] Social History Tobacco Use Types Packs/Day Years [...] Associated Diagnosis Comments XR CHEST ONE VIEW STAT 05/31/2024 10: 56 AM EST documented in this encounter Results * XR Chest One View (05/31/2024 10:56 AM EST) PT CLASS E RAD ADMITDTTM [id number] RAD PT RAD INFO [id number]^AUGUSTO^ CARLA^J RAD EXAM DESC XCXR1^XR CHEST PORTABLE OR 1V^RIS RAD WORKSTATION ID [id number] RAD Anatomical Region Laterality Modality Chest N/A Radiographic Shaunna ging Impressions 05/31/2024 11:30 AM EST No acute pulmonary findings Thank you for letting us participate in the care of this patient. ??If you are a health care provider and have any questions regarding this report, please contact the number below. ??For patients who have questions please contact the health manager of care that requested your imaging first. ? Narrative 05/31/2024 11:30 AM EST EXAMINATION: XR CHEST PORTABLE OR 1V CLINICAL HISTORY: ??fevers TECHNIQUE: Portable AP view of the chest COMPARISON: 05/31/2024 FINDINGS: The cardiomediastinal silhouette is within normal limits The lungs are clear. No pleural effusion or pneumothorax There is convex right scoliosis centered in the midthoracic spine Procedure Note Rojas Grey MD - 05/31/2024 EXAMINATION: XR CHEST PORTABLE OR 1V CLINICAL HISTORY: fevers TECHNIQUE: Portable AP view of the chest COMPARISON: 05/31/2024 FINDINGS: The cardiomediastinal silhouette is within normal limits The lungs are clear. No pleural effusion or pneumothorax There is convex right scoliosis centered in the midthoracic spine IMPRESSION No acute pulmonary findings Thank you for letting us participate in the care of this patient. If youare a health care provider and have any questions regarding this report,please contact the number below. For patients who have questions please contactthe health manager of care that requested your imaging first. Carla Palmer MD IMG DX ORDERABLES documented in this encounter Visit Diagnoses Not on filedocumented in this encounter Care Teams Senior Care Manager Relationship Specialty Start Date End Date Daniel Gannon ND [address] [place] [address] [place] [address] PCP - General Naturopathic Medicine 03/06/24 documented as of this encounter
--- OUTSIDE RECORDS SUMMARY | 2024-06-12 19:14 | XMS_ITS | Encounter Summary ---
Author Organization [facility] Address [address] [place] [address] Care Team Providers Care Card Tape Converter Operator Name Role Phone Jayshree Guteirrez MD Primary Care Provider Reason for Visit * Reason Comments Follow-up yearly Encounter Details Date Type Department Care Team (Late st Contact Info) Description 03/03/2011 8:00 EDT Office Visit [facility] Cardiology [place] [address] Kris Crawford MD AI (aortic insufficiency); MR (mitral regurgitation) Social History Tobacco Use Types Packs/Day Years Used Date Smoking Tobacco: Former Cigarettes Q uit: 03/03/2003 Smokeless Tobacco: Never Alcohol Use Standard Drinks/Week Comments Not Asked 0 (1 standard drink = 0.6 oz pur e alcohol) Sex and Gender Information Value Date Recorded Sex Assigned at Not on file Legal Sex Male 18:38 EST Gender Identity Not on file Sexual Orientation Not on file documented as of this encounter Last Filed Vital Signs Vital Sign Reading Time Taken Comments Blood Pressure 140/80 03/03/2011811 EDT Pulse 69 03/03/2011 08 EDT Temperature - - Respiratory Rate - - Oxygen Saturation - - Inhaled Oxygen Concentration - - Weight 88.5 kg (195 lb) 03/03/2011 08 EDT Height 198.1 cm (6' 6) 03/03/2011 08 EDT Body Mass Index 22.53 03/03/2011 08 EDT documented in this encounter Progress Notes * Kris Crawford MD - 03/10/2011 1710 EDT RE: NAME: FELICIANO MOORE : 1980 PROGRESS/FOLLOWUP NOTE - 03/03/2011 Jayshree Gutierrez MD [address] [address] Reason For Visit: 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 Dear Akhil: I had the pleasure of seeing Feliciano Moore in 1-year followup of his congenitally abnormal aortic and mitral valves. 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 With his usual activities he is not having chest pain, shortness of breath or any other cardiovascular symptoms. He underwent echocardiography today, and I reviewed the images personally and reviewed the results with Feliciano and his showing the followin. Mildly dilated left ventricle. 2. Moderate to severe aortic insufficiency with early diastolic flow reversal in the descending aorta. 3. At worst, mild to moderate mitral regurgitation. 4. Normal ejection fraction. On physical exam, he appears healthy with a blood pressure of 140/80, heart rate of 69. Weight is 88 kg. Skin is warm and dry. Neurologic: Grossly nonfocal. Musculoskeletal: Gait is steady. Respiratory: Lungs are clear in all jacobo. Cardiovascular: PMI is nondisplaced, normal S1, normal S2. There is a 2/6 decrescendo diastolic murmur heard widely. There is a soft systolic murmur. Gastrointestinal: Abdomen is nontender. Lower extremities: No edema. Distal pulses are intact. Data Reviewed: Echocardiogram as noted above. EKG personally reviewed by me shows sinus bradycardiawith a rate of 54 with J point elevation which is nonspecific and unchanged from previous tracings. In summary, Feliciano has a trileaflet but congenitally abnormal aortic valve. There is also a slim possibility that he has healed endocarditis but I think that is much less likely given the images and history. I made no changes to his medicines. We do need to keep a close eye on this valve, and I plan on seeing him again in 1 more year. This was extensive visit, 25 minutes in duration, greater than 15 minutes was spent in advice and counseling. Sincerely, Electronically Signed by Kris Crawford MD 03/10/2011 17:10 Kris Crawford MD - Kris Crawford MD - WAN Job ID: SM Doc ID: [id number] Ext Doc ID: [id number] cc: Jayshere Gutierrez MD * Kris Crawford MD - 03/05/2011 1711 EDT This office note has been dictated. documented in this encounter Miscellaneous Notes * Scanned Note-Null - Pulp Cooker, Scan - 03/12/2011 1135 EDTAssociated Order(s): ECG REPORT - SCANNED documented in this encounter Plan of Treatment Upcoming Encounters Date Type Department Care Team (Late st Contact Info) Description 08/24/2024 14:15 EDT Office Visit [facility]umatology [facility] [place] [address] Chantel Juan MD [address] [place], [place] [address] Scheduled Orders Name Type Priority Associated Diagnoses Orde r Schedule EKG 12-LEAD ECG Routine AI (Aortic Insufficiency) MR (Mitral Regurgitation) Ordered: 03/03/2011 documented as of this encounter Procedures Procedure Name Priority Date/Time Associated Diagnosis Comments ECHOCARDIOGRAM Routine 03/22/2012 9:03 EDT MR (mitral regurgitation) AI (aortic insufficiency) ECG REPORT - SCANNED 03/12/2011 11:35 EDT ECHOCARDIOGRAM Routine 03/03/2011 12:50 EDT AI (aortic insufficiency) MR (mitral regurgitation) documented in this encounter Results * ECHOCARDIOGRAM (03/22/2012 9:03 EDT) Anatomical Region Laterality Modality Other 03/22/2012 9:03 EDT Narrative 03/22/2012 9:28 EDT *Interpreting Group:* *[facility]* [address] [place] [address] *STUDY CONCLUSIONS* Summary: 1. Left ventricle: The cavity size was mildly dilated. Wall ?? thickness was normal. Systolic function was normal. The ?? estimated ejection fraction was 60-65%. Wall motion was ?? normal; there were no regional wall motion abnormalities. 2. Aortic valve: Severe regurgitation with flow reversal in ?? the descending aorta. 3. Aortic root: The aortic root was normal in size. 4. Mitral valve: Mild regurgitation. 5. Left atrium: The atrium was mildly dilated. Impressions: ??Compared to the previous study, ventricular size is unchanged. The degree of AI is slightly worse. *PATIENT PRESENTATION* Height: ? 198.1cm (78in ) S/D Pressure: 153 / 75 Weight: ? 88.5kg (194.6lb ) BSA: ?2.2m^2 Test start time: ??08:10 AM. Test stop time: ??08:51 AM. REFERRING ?Jayshree Gutierrez ATTENDING ?Kris Crawford ORDERING ? Kris Crawford PERFORMING ?? Kris Crawford COOKER CLEANER ??Ivett Jasso RN,[facility] *PROCEDURE DATA* Procedure information: ??This study was interpreted by [facility]. ??Study status: ??Routine. Transthoracic echocardiography. ??M-mode, complete 2D, complete spectral Doppler, and color Doppler. A Transthoracic Echocardiogram was performed. Scanning was performed from the parasternal, apical, subcostal, and suprasternal notch acoustic windows. Images were obtained using a Marciano [id number] 8 cardiac ultrasound machine. Image quality was good. ??Study completion: ??The patient tolerated the procedure well. *INDICATIONS AND HISTORY* Indications: ?? 424.1, Aortic Valve Disorder. ??424.0, Mitral Valve Disorders. Labs, prior tests, procedures, and surgery: Echocardiography (March 03, 2011). *CARDIAC ANATOMY* Left ventricle: ??The cavity size was mildly dilated. Wall thickness was normal. Systolic function was normal. The estimated ejection fraction was 60-65%. Wall motion was normal; there were no regional wall motion abnormalities. Aortic valve: ?? Trileaflet; mildly thickened leaflets. Mobility was not restricted. ??Doppler: ??Transvalvular velocity was within the normal range. There was no stenosis. Severe regurgitation with flow reversal in the descending aorta. Aorta: ??Aortic root: The aortic root was normal in size. Mitral valve: ?? Mildly thickened leaflets. . Mobility was not restricted. ??Doppler: ??Transvalvular velocity was within the normal range. There was no evidence for stenosis. ??Mild regurgitation. ?Peak gradient: 6.7mm Hg (D). Left atrium: ??The atrium was mildly dilated. Right ventricle: ??The cavity size was normal. Wall thickness was normal. Systolic function was normal. Pulmonic valve: ?Doppler: ??Transvalvular velocity was within the normal range. There was no evidence for stenosis. Tricuspid valve: ?? Structurally normal valve. ?Doppler: Transvalvular velocity was within the normal range. ??No regurgitation. Pulmonary artery: ?? Pulmonary systolic pressure was within the normal range. Right atrium: ??The atrium was normal in size. Pericardium: ??There was no pericardial effusion. Systemic veins: Inferior vena cava: The vessel was normal in size. *MEASUREMENT TABLES* 2D measurements ?Normal Left ventricle Volume, ED, MOD, 1-plane ?111 ml ? ------- Volume, ES, MOD, 1-plane ? 40 ml ? ------- Ejection fraction, MOD, 1-plane ?64 % ?------- Volume index, ED, MOD, 1-plane ? 50 ml/m^2 ------- Volume index, ES, MOD, 1-plane ? 18 ml/m^2 ------- Aorta Root diameter, ED ?30 mm ? ------- Ascending aorta anterior-posterior ? 30 mm ? ------- diameter, S Left atrium Anterior-posterior dimension ? 41 mm ? ------- Anterior-posterior dimension index ? 1.86 cm/m^2 <2.2 M-mode measurements ?Normal Left ventricle LV internal dimension, ED ? *64 mm ? 37-56 LV internal dimension, ES ?43 mm ? ------- Fractional shortening ?33 % ?29-45 LV posterior wall, ED ? 9 mm ? 6-11 Septal/posterior wall ratio, ED ? 1 ?------- Relative wall thickness, ED ? 0.3 ?<0.45 Volume, ED, Teichholz ? 209 ml ? ------- Volume, ES, Teichholz ?83.1 ml ? ------- Ejection fraction, Teichholz ?*60.2 % ?64-83 Volume index, ED, Teichholz ?95 ml/m^2 ------- Volume index, ESUsama ?38 ml/m^2 ------- Wall mass ? 241.2 g ?------- Wall mass index ? 109.7 g/m^2 ??------- Mass/height ?1.22 g/cm ?? ------- Ventricular septum Septal thickness, ED ?9 mm ? ------- Doppler measurements ? Normal Aortic valve Regurgitant deceleration ?277 cm/s^2 ------- Mitral valve Peak E-wave velocity ?129 cm/s ?? ------- Peak A-wave velocity ? 80 cm/s ?? ------- Deceleration time ?*370 ms ? 150-230 Peak gradient, D ?6.7 mm Hg ??------- Peak E/A ratio ? 1.61 ?------- Legend: Mean values are shown as u=mean value. Asterisk (*) stewart values outside specified normal range. Electronically signed by Kris Crawford [id number] Procedure Note 03/22/2012 *Interpreting Group:* *[facility]* [address] [place] [address] *STUDY CONCLUSIONS* Summary: 1. Left ventricle: The cavity size was mildly dilated. Wall thickness was normal. Systolic function was normal. The estimated ejection fraction was 60-65%. Wall motion was normal; there were no regional wall motion abnormalities. 2. Aortic valve: Severe regurgitation with flow reversal in the descending aorta. 3. Aortic root: The aortic root was normal in size. 4. Mitral valve: Mild regurgitation. 5. Left atrium: The atrium was mildly dilated. Impressions: Compared to the previous study, ventricular size is unchanged. The degree of AI is slightly worse. *PATIENT PRESENTATION* Height: 198.1cm (78in ) S/D Pressure: 153 / 75 Weight: 88.5kg (194.6lb ) BSA: 2.2m^2 Test start time: 08:10 AM. Test stop time: 08:51 AM. REFERRING Jayshree Gutierrez ATTENDING Kris Crawford ORDERING Kris Crawford PERFORMING Kris Crawford COOKER CLEANER Ivett Jasso RN,[facility] *PROCEDURE DATA* Procedure information: This study was interpreted by [facility]. Study status: Routine. Transthoracic echocardiography. M-mode, complete 2D, complete spectral Doppler, and color Doppler. A Transthoracic Echocardiogram was performed. Scanning was performed from the parasternal, apical, subcostal, and suprasternal notch acoustic windows. Images were obtained using a [employer] [id number] 8 cardiac ultrasound machine. Image quality was good. Study completion: The patient tolerated the procedure well. *INDICATIONS AND HISTORY* Indications: 424.1, Aortic Valve Disorder. 424.0, Mitral Valve Disorders. Labs, prior tests, procedures, and surgery: Echocardiography (March 03, 2011). *CARDIAC ANATOMY* Left ventricle: The cavity size was mildly dilated. Wall thickness was normal. Systolic function was normal. The estimated ejection fraction was 60-65%. Wall motion was normal; there were no regional wall motion abnormalities. Aortic valve: Trileaflet; mildly thickened leaflets. Mobility was not restricted. Doppler: Transvalvular velocity was within the normal range. There was no stenosis. Severe regurgitation with flow reversal in the descending aorta. Aorta: Aortic root: The aortic root was normal in size. Mitral valve: Mildly thickened leaflets. . Mobility was not restricted. Doppler: Transvalvular velocity was within the normal range. There was no evidence for stenosis. Mild regurgitation. Peak gradient: 6.7mm Hg (D). Left atrium: The atrium was mildly dilated. Right ventricle: The cavity size was normal. Wall thickness was normal. Systolic function was normal. Pulmonic valve: Doppler: Transvalvular velocity was within the normal range. There was no evidence for stenosis. Tricuspid valve: Structurally normal valve. Doppler: Transvalvular velocity was within the normal range. No regurgitation. Pulmonary artery: Pulmonary systolic pressure was within the normal range. Right atrium: The atrium was normal in size. Pericardium: There was no pericardial effusion. Systemic veins: Inferior vena cava: The vessel was normal in size. *MEASUREMENT TABLES* 2D measurements Normal Left ventricle Volume, ED, MOD, 1-plane 111 ml ------- Volume, ES, MOD, 1-plane 40 ml ------- Ejection fraction, MOD, 1-plane 64 % ------- Volume index, ED, MOD, 1-plane 50 ml/m^2 ------- Volume index, ES, MOD, 1-plane 18 ml/m^2 ------- Aorta Root diameter, ED 30 mm ------- Ascending aorta anterior-posterior 30 mm ------- diameter, S Left atrium Anterior-posterior dimension 41 mm ------- Anterior-posterior dimension index 1.86 cm/m^2 <2.2 M-mode measurements Normal Left ventricle LV internal dimension, ED *64 mm 37-56 LV internal dimension, ES 43 mm ------- Fractional shortening 33 % 29-45 LV posterior wall, ED 9 mm 6-11 Septal/posterior wall ratio, ED 1 ------- Relative wall thickness, ED 0.3 <0.45 Volume, ED, Teichholz 209 ml ------- Volume, ES, Teichholz 83.1 ml ------- Ejection fraction, Teichholz *60.2 % 64-83 Volume index, ED, Teichholz 95 ml/m^2 ------- Volume index, ES, Teichholz 38 ml/m^2 ------- Wall mass 241.2 g ------- Wall mass index 109.7 g/m^2 ------- Mass/height 1.22 g/cm ------- Ventricular septum Septal thickness, ED 9 mm ------- Doppler measurements Normal Aortic valve Regurgitant deceleration 277 cm/s^2 ------- Mitral valve Peak E-wave velocity 129 cm/s ------- Peak A-wave velocity 80 cm/s ------- Deceleration time *370 ms 150-230 Peak gradient, D 6.7 mm Hg ------- Peak E/A ratio 1.61 ------- Legend: Mean values are shown as u=mean value. Asterisk (*) stewart values outside specified normal range. Electronically signed by Kris Crawford [id number] Kris Crawford MD CARDIAC ECHO ORDERABLES Fi nal Result * ECG REPORT - SCANNED (03/12/2011 11:35 EDT) 03/12/2011 11:3 5 EDT Narrative Procedure Note Pulp Cooker, Scan - 03/12/2011 11:35 EDT us Scan Pulp Cooker PROCEDURE/MINOR SURGICAL ORDE RABLES Final Result * ECHOCARDIOGRAM (03/03/2011 12:50 EDT) Anatomical Region Laterality Modality Other 03/03/2011 12:5 0 EDT Narrative 03/03/2011 12:56 EDT *Interpreting Group:* *[facility]* [address] [place] [address] *STUDY CONCLUSIONS* Summary: 1. Left ventricle: The cavity size was mildly dilated. Wall ?? motion was normal; there were no regional wall motion ?? abnormalities. 2. Aortic valve: Thickening. Thickening. Thickening. The ?? valve is trileaflet but appears congenitally abnormal. ?? Moderate to severe regurgitation with early diastolic ?? flow reversal in the descending aorta. 3. Mitral valve: Mild to moderate regurgitation. 4. Atrial septum: No defect or patent foramen ovale was ?? identified. *PATIENT PRESENTATION* Height: ? 198.1cm (78in ) S/D Pressure: 147 / 69 Weight: ? 88.5kg (194.6lb ) BSA: ?2.23m^2 Test start time: ??11:25 AM. Test stop time: ??00:10 AM. ATTENDING ?Kris Crawford ORDERING ? Kris Crawford PERFORMING ?? Kris Crawford COOKER CLEANER ??Malissa Valdivia *PROCEDURE DATA* Procedure information: ??This study was interpreted by [facility] at [facility]. ??Study status: ??Routine. Transthoracic echocardiography. ??M-mode, complete 2D, complete spectral Doppler, and color Doppler. A Transthoracic Echocardiogram was performed. Scanning was performed from the parasternal, apical, subcostal, and suprasternal notch acoustic windows. Images were obtained using a Lisa 4 cardiac ultrasound machine. Image quality was good. ??Study completion: ??The patient tolerated the procedure well. *INDICATIONS AND HISTORY* Indications: ?? 424.1, Aortic Valve disorder. *CARDIAC ANATOMY* Left ventricle: ??The cavity size was mildly dilated. Wall motion was normal; there were no regional wall motion abnormalities. Aortic valve: ?? Thickening. ??Thickening. ??Thickening. Cusp separation was normal. ??Doppler: ?? Moderate to severe regurgitation. Aorta: ??Aortic root: The aortic root was normal in size. Ascending aorta: The ascending aorta was normal in size. Mitral valve: ?? Structurally normal valve. ?Doppler: Mild to moderate regurgitation. ?Peak gradient: 6mm Hg (D). Left atrium: ??The atrium was normal in size. Atrial septum: ??No defect or patent foramen ovale was identified. Right ventricle: ??The cavity size was normal. Wall thickness was normal. Systolic function was normal. Pulmonic valve: ?Structurally normal valve. ?? Cusp separation was normal. ??Doppler: ??Transvalvular velocity was within the normal range. There was no evidence for stenosis. No significant regurgitation. Tricuspid valve: ?? Structurally normal valve. Pulmonary artery: ?? The main pulmonary artery was normal-sized. Right atrium: ??The atrium was normal in size. Pericardium: ??There was no pericardial effusion. Systemic veins: Inferior vena cava: The vessel was normal in size; the respirophasic diameter changes were in the normal range (= 50%); findings are consistent with normal central venous pressure. *MEASUREMENT TABLES* 2D measurements ?Normal Aorta Root diameter, ED ? 32 mm ?------- Mid ascending aorta anterior-posterior ?27.2 mm ?21-34 diameter, ED Left atrium Anterior-posterior dimension ES, PLAX ?*39.9 mm ?23-38 M-mode measurements ?Normal Left ventricle LV internal dimension, ED ?*62.7 mm ?37-56 LV internal dimension, ES ? 44.7 mm ?------- Fractional shortening ? 29 % ? 29-45 LV posterior wall, ED ? 10.7 mm ?6-11 Septal/posterior wall ratio, ED ? 1.12 ? ------- Relative wall thickness, ED ? 0.34 ? <0.45 Ejection fraction, Teichholz ? *54.3 % ? 64-83 Wall mass ?391.4 g ? ------- Wall mass index ?175.2 g/m^2 ------- Mass/height ? 1.98 g/cm ??------- Ventricular septum Septal thickness, ED ?12 mm ?------- Doppler measurements ? Normal Left ventricle IVRT ?88 ms ?60- 100 Mitral valve Peak E-wave velocity ? 125 cm/s ??------- Peak A-wave velocity ?78 cm/s ??------- Deceleration time ? *317 ms ?150-230 Peak gradient, D ? 6 mm Hg ------- Peak E/A ratio ? 1.6 ? ------- Legend: Mean values are shown as u=mean value. Asterisk (*) stewart values outside specified normal range. Electronically signed by Kris Crawford [id number] Procedure Note 03/03/2011 *Interpreting Group:* *[facility]* [address] [place] [address] *STUDY CONCLUSIONS* Summary: 1. Left ventricle: The cavity size was mildly dilated. Wall motion was normal; there were no regional wall motion abnormalities. 2. Aortic valve: Thickening. Thickening. Thickening. The valve is trileaflet but appears congenitally abnormal. Moderate to severe regurgitation with early diastolic flow reversal in the descending aorta. 3. Mitral valve: Mild to moderate regurgitation. 4. Atrial septum: No defect or patent foramen ovale was identified. *PATIENT PRESENTATION* Height: 198.1cm (78in ) S/D Pressure: 147 / 69 Weight: 88.5kg (194.6lb ) BSA: 2.23m^2 Test start time: 11:25 AM. Test stop time: 00:10 AM. ATTENDING Kris Crawford ORDERING Kris Crawford PERFORMING Kris Crawford COOKER CLEANER Malissa Valdivia *PROCEDURE DATA* Procedure information: This study was interpreted by [facility] at [facility]. Study status: Routine. Transthoracic echocardiography. M-mode, complete 2D, complete spectral Doppler, and color Doppler. A Transthoracic Echocardiogram was performed. Scanning was performed from the parasternal, apical, subcostal, and suprasternal notch acoustic windows. Images were obtained using a [employer] 4 cardiac ultrasound machine. Image quality was good. Study completion: The patient tolerated the procedure well. *INDICATIONS AND HISTORY* Indications: 424.1, Aortic Valve disorder. *CARDIAC ANATOMY* Left ventricle: The cavity size was mildly dilated. Wall motion was normal; there were no regional wall motion abnormalities. Aortic valve: Thickening. Thickening. Thickening. Cusp separation was normal. Doppler: Moderate to severe regurgitation. Aorta: Aortic root: The aortic root was normal in size. Ascending aorta: The ascending aorta was normal in size. Mitral valve: Structurally normal valve. Doppler: Mild to moderate regurgitation. Peak gradient: 6mm Hg (D). Left atrium: The atrium was normal in size. Atrial septum: No defect or patent foramen ovale was identified. Right ventricle: The cavity size was normal. Wall thickness was normal. Systolic function was normal. Pulmonic valve: Structurally normal valve. Cusp separation was normal. Doppler: Transvalvular velocity was within the normal range. There was no evidence for stenosis. No significant regurgitation. Tricuspid valve: Structurally normal valve. Pulmonary artery: The main pulmonary artery was normal-sized. Right atrium: The atrium was normal in size. Pericardium: There was no pericardial effusion. Systemic veins: Inferior vena cava: The vessel was normal in size; the respirophasic diameter changes were in the normal range (= 50%); findings are consistent with normal central venous pressure. *MEASUREMENT TABLES* 2D measurements Normal Aorta Root diameter, ED 32 mm ------- Mid ascending aorta anterior-posterior 27.2 mm 21-34 diameter, ED Left atrium Anterior-posterior dimension ES, PLAX *39.9 mm 23-38 M-mode measurements Normal Left ventricle LV internal dimension, ED *62.7 mm 37-56 LV internal dimension, ES 44.7 mm ------- Fractional shortening 29 % 29-45 LV posterior wall, ED 10.7 mm 6-11 Septal/posterior wall ratio, ED 1.12 ------- Relative wall thickness, ED 0.34 <0.45 Ejection fraction, Teichholz *54.3 % 64-83 Wall mass 391.4 g ------- Wall mass index 175.2 g/m^2 ------- Mass/height 1.98 g/cm ------- Ventricular septum Septal thickness, ED 12 mm ------- Doppler measurements Normal Left ventricle IVRT 88 ms 60-100 Mitral valve Peak E-wave velocity 125 cm/s ------- Peak A-wave velocity 78 cm/s ------- Deceleration time *317 ms 150-230 Peak gradient, D 6 mm Hg ------- Peak E/A ratio 1.6 ------- Legend: Mean values are shown as u=mean value. Asterisk (*) stewart values outside specified normal range. Electronically signed by Kris Crawford [id number] Kris Crawford MD CARDIAC ECHO ORDERABLES Fi nal Result documented in this encounter Visit Diagnoses Diagnosis AI (aortic insufficiency) Aortic valve disorders MR (mitral regurgitation) Mitral valve disorders documented in this encounter Care Teams Card Tape Converter Operator Relationship Specialty Start Date End Date Jayshree Gutierrez MD [address] [place] [address] [id number] PCP - General 03/03/11 03/05/15 documented as of this encounter
--- OUTSIDE RECORDS SUMMARY | 2024-06-12 19:14 | XMS_ITS | Encounter Summary ---
Author Organization [facility] Address [address] [place] [address] Care Team Providers Care Grey Goods Marker Name Role Phone Kim Grimaldo MD Primary Care Provider [phone] Encounter Details Date Type Department Care Team (Late st Contact Info) Description 09/15/2010 Abstract Used for ABSTRACTING Data [phone] Kris Crawford MD Social History Tobacco Use [...] Clinic [facility] Rheumatology & Immunology - [facility] [address], [place] [id number] Chantel Juan MD [address] [place], [place] [id number] documented as of this encounter Visit Diagnoses Not on filedocumented in this encounter Care Teams Grey Goods Marker Relationship Specialty Start Date End Date Kim Grimaldo MD [place] Location [address] [place] [id number] PCP - General 05/22/09 03/02/11 documented as of this encounter
--- OUTSIDE RECORDS SUMMARY | 2024-06-12 19:14 | XMS_ITS | Encounter Summary ---
Author Organization [facility] [place] [address] Care Team Providers Care Watch Repairer Apprentice Name Role Phone Daniel Gannon ND Primary Care Provider [phone] Encounter Details Date Type Department Care Team (Late st Contact Info) Description 03/08/2024 Interpretation Only [facility] in [address] [phone] Guerline Kwan MD [address] [place] [id number] Social History Tobacco Use Types Packs/Day Years Used Date Smoking Tobacco: Never Assessed Sex and Gender Information Value Date Recorded Sex Assigned at Not on file Gender Identity Not on file Sexual Orientation Not on file documented as of this encounter Plan of Treatment Not on file documented as of this encounter Procedures Procedure Name Priority Date/Time Associated Diagnosis Comments CT ABDOMEN AND PELVIS WO CONTRAST STAT 03/08/2024 2:09 AM EDT documented in this encounter Results * CT Abdomen & Pelvis wo Contrast (03/08/2024 2:09 AM EDT) PT CLASS E RAD ADMITDTTM [id number] RAD PT RAD INFO [id number]^PHANI ^GUERLINE^R RAD EXAM DESC CTAPWO^CT ABD PELVIS WO IV OR ORAL CONTRAST^RIS [facility] WORKSTATION ID [id number] RAD Anatomical Region Laterality Modality Abdomen, Pelvis Computed Tomogra phy Impressions 03/08/2024 3:28 AM EDT 1. ??No hydronephrosis or obstructing urolithiasis. 2. ??Amorphous bilateral renal calyces, suggestive of medullary nephrocalcinosis. 3. ??Large fecal load in the proximal colon, that may be compatible with constipation. Thank you for letting us participate in the care of this patient. ??If you are a health care provider and have any questions regarding this report, please contact the number below. ??For patients who have questions please contact the health youth career specialist that requested your imaging first. ? Narrative 03/08/2024 3:28 AM EDT EXAMINATION: CT ABD PELVIS WO IV OR ORAL CONTRAST CLINICAL HISTORY: ??Right Flank Pain ?? TECHNIQUE: Helical CT of the abdomen and [...] Normal. Osseous structures: No acute osseous findings. Procedure Note Nyasia Luna MD - 03/08/2024 EXAMINATION: CT ABD PELVIS WO IV OR ORAL CONTRAST CLINICAL HISTORY: Right Flank Pain TECHNIQUE: Helical CT of the abdomen and pelvis without intravenouscontrast. Multiplanar reformatted images were generated. COMPARISON: None. FINDINGS: The absence of intravenous contrast limits the evaluation ofsolid viscera and vasculature. Lower chest: Normal. Liver: Normal. Bile ducts: Not dilated. Gallbladder: Decompressed. No calcified gallstones.. Pancreas: Normal. Spleen: Normal. Adrenals: Normal. Right kidney/ureter: No renal calculi. Amorphous hyperdensities at therenal calyces. No collecting system dilation or calculi. Left kidney/ureter: No renal calculi. Amorphous hyperdensities at therenal calyces. No collecting system dilation or calculi. Urinary Bladder: No calculi. Vasculature: No significant findings. Lymph Nodes: No enlarged lymph nodes. Bowel: Stomach and small bowel are normal. Normal terminal ileum andappendix. Large fecal load in the cecum and ascending colon. Predominantlyair-filled transverse colon with minimal stool within the otherwise relativelydecompressed distal large bowel. Peritoneum: No free air or free fluid. Abdominal wall: Normal. Reproductive organs: Normal. Osseous structures: No acute osseous findings. IMPRESSION 1. No hydronephrosis or obstructing urolithiasis. 2. Amorphous bilateral renal calyces, suggestive of medullarynephrocalcinosis. 3. Large fecal load in the proximal colon, that may be compatible with constipation. Thank you for letting us participate in the care of this patient. If youare a health care provider and have any questions regarding this report,please contact the number below. For patients who have questions please contactthe health youth career specialist that requested your imaging first. Guerline Kwan MD IMG CT ORDERABLES documented in this encounter Visit Diagnoses Not on filedocumented in this encounter Care Teams Watch Repairer Apprentice Relationship Specialty Start Date End Date Daniel Gannon ND [address] [place] [address] [place] [address] PCP - General Naturopathic Medicine 03/06/24 documented as of this encounter
--- OUTSIDE RECORDS SUMMARY | 2024-06-12 19:14 | XMS_ITS | Encounter Summary ---
Author Organization [facility] Address [address] [place] [address] Care Team Providers Care Warehouse Processor Name Role Phone Jayshree Gutierrez MD Primary Care Provider Reason for Visit * Reason Onset Date Comments Other 03/13/2011 Encounter Details Date Type Department Care Team (Late st Contact Info) Description 03/13/2011 Telephone [facility] Cardiology - [address] [place], [place] [phone] Kris Crawford MD Other Social History Tobacco Use Types Packs/Day [...] Telephone Encounter - Eboni Lombardi RN - 03/16/2011 0851 EDT Feliciano Moore - 03/13/2011 14:01 ','<More Detail >> From Kris Crawford MD Sent Sunday March 13, 2011 17:14 To Eboni Lombardi RN Message Does not need premedication prior to dental work Informed who is aware of situation and she will pass msg on to pt. * Telephone Encounter - Eboni Lombardi RN - 03/13/2011 1431 EDT Called pt- told him I thought he would need pre medication but will check with Dr Crawford Mar 17 when he is here for clinic. Pt has no set appt for cleaning, but wants to make one. Discussed which valves were involved as well. Please advise. * Telephone Encounter - Janneth Faustin - 03/13/2011 1401 EDT HAS QUESTIONS REGARDING LEAKY VALVES HE WANTS TO KNOW WHICH ONES THERE ARE?HE ALSO WANTS TO KNOW IFHE NEEDS TO PRE MEDICATE FOR DENTAL WORK? documented in this encounter Plan of Treatment Upcoming Encounters Date Type Department Care Team (Late st Contact Info) Description 08/24/2024 14:15 EDT Office Visit [facility] Rheumatology & Immunology - [facility] [address] [place], [place] [phone] Chantel Juan MD [address] [place], [place] [phone] documented as of this encounter Visit Diagnoses Not on filedocumented in this encounter Care Teams Warehouse Processor Relationship Specialty Start Date End Date Jayshree Gutierrez MD [address] [place] [phone] PCP - General 03/03/11 03/05/15 documented as of this encounter
--- OUTSIDE RECORDS SUMMARY | 2024-06-12 19:14 | XMS_ITS | Encounter Summary ---
Author Organization [facility] [place] [address] Care Team Providers Care Director Of Psychiatry Name Role Phone Daniel Gannon ND Primary Care Provider [phone] Encounter Details Date Type Department Care Team (Late st Contact Info) Description 03/14/2024 Interpretation Only [facility] in [facility] [address] [place] [phone] Roman Bowling MD [address] [place] [id number] Social History Tobacco Use Types Packs/Day Years Used Date Smoking Tobacco: Never Assessed Sex and Gender Information Value Date Recorded Sex Assigned at Not on file Gender Identity Not on file Sexual Orientation Not on file documented as of this encounter Plan of Treatment Not on file documented as of this encounter Procedures Procedure Name Priority Date/Time Associated Diagnosis Comments CT HEAD WO & MULTIPHASE CTA HEAD/NECK W (STROKE PROTOCOL) STAT 03/14/2024 8:25 AM EDT documented in this encounter Results * CT Head wo & Multiphase CTA Head/Neck (THROMBECTOMY PROTOCOL) (03/14/2024 8:25 AM EDT) PT CLASS E RAD ADMITDTTM [id number] RAD PT RAD INFO [id number]^YOLANDA LÓPEZ^ROMAN RAD EXAM DESC CTHSTROKE^CT STROKE PROTOCOL W CT HEAD^RIS RAD WORKSTATION ID [id number] RAD Anatomical Region Laterality Modality Head Computed [...] have questions please contact the health healthcare facility administrator that requested your imaging first. ? Electronically signed by: ANDREA Gonsalez [facility] ([phone]), at 03/14/2024 8:58 AM Narrative 03/14/2024 8:58 AM EDT EXAMINATION: CT STROKE PROTOCOL W CT HEAD CLINICAL HISTORY: ??Reason for Head: ??Double Vision ??Add'l Info: R lateral rectus palsy, headache TECHNIQUE: CT of head without intravenous contrast. Multiphase CTA of the carotids and [place] is performed after the administration of 100cc of Omnipaque 350 intravenous contrast. MIP and 3-D volumetric reconstructions were created. COMPARISON: None FINDINGS: Head: No acute intracranial hemorrhage, mass effect or extra-axial collection. The bernal-white differentiation appears maintained. Probable prominent perivascular space at the right basal ganglia. The ventricles are normal in caliber and the basilar cisterns are patent. Orbits appear unremarkable. The otomastoid spaces are clear. Opacification of a posterior right ethmoid air cell. Trace maxillary sinus mucosal thickening. CT angiogram neck and [place]: Mild apical lung scarring. Thyroid [...] apex creating pseudolesion in the proximal left INSTRUCTIONAL MATERIALS DIRECTOR. Apparent mild irregularity of the proximal left INSTRUCTIONAL MATERIALS DIRECTOR, possibly artifactual. Normal proximal superior cerebellar and right posterior cerebral arteries. The right and P1 INSTRUCTIONAL MATERIALS DIRECTOR segment is hypoplastic. Procedure Note Dulce Maria De La Cruz MD - 03/14/2024 EXAMINATION: CT STROKE PROTOCOL W CT HEAD CLINICAL HISTORY: Reason for Head: Double Vision Add'l Info: R lateralrectus palsy, headache TECHNIQUE: CT of head without intravenous contrast. Multiphase CTA of the carotidsand [place] of [place] is performed after the administration of 100cc ofOmnipaque 350 intravenous contrast. MIP and 3-D volumetric reconstructions werecreated. COMPARISON: None FINDINGS: Head: No acute intracranial hemorrhage, mass effect or extra-axialcollection. The bernal-white differentiation appears maintained. Probable prominent perivascular space at the right basal ganglia. The ventricles are normalin caliber and the basilar cisterns are patent. Orbits appear unremarkable.The otomastoid spaces are clear. Opacification of a posterior right ethmoidair cell. Trace maxillary sinus mucosal thickening. CT angiogram neck and [place]: Mild apical lung scarring. Thyroidand major salivary [...] theapex creating pseudolesion in the proximal left INSTRUCTIONAL MATERIALS DIRECTOR. Apparent mild irregularityof the proximal left INSTRUCTIONAL MATERIALS DIRECTOR, possibly artifactual. Normal proximal superiorcerebellar and right posterior cerebral arteries. The right and P1 INSTRUCTIONAL MATERIALS DIRECTOR segment is hypoplastic. IMPRESSION No acute intracranial [...] who have questions please contactthe health healthcare facility administrator that requested your imaging first. Roman Bowling MD IMG CT ORDERABLES documented in this encounter Visit Diagnoses Not on filedocumented in this encounter Care Teams Director Of Psychiatry Relationship Specialty Start Date End Date Daniel Gannon ND [address] [place] [address] [place] [address] PCP - General Naturopathic Medicine 03/06/24 documented as of this encounter
--- OUTSIDE RECORDS SUMMARY | 2024-06-12 19:14 | XMS_ITS | Encounter Summary ---
Author Organization [facility] [place] [address] Care Team Providers Care Supply Person Name Role Phone Daniel Gannon ND Primary Care Provider [phone] Encounter Details Date Type Department Care Team (Late st Contact Info) Description 06/01/2024 Interpretation Only [address] [phone] Barrington Mccurdy MD [address] [place] [phone] Social History Tobacco Use Types Packs/Day Years Used Date Smoking Tobacco: Never Assessed Sex and Gender Information Value Date Recorded Sex Assigned at Not on file Gender Identity Not on file Sexual Orientation Not on file documented as of this encounter Plan of Treatment Not on file documented as of this encounter Visit Diagnoses Not on filedocumented in this encounter Care Teams Supply Person Relationship Specialty Start Date End Date Daniel Gannon ND [address] [place] [address] [place] [id number] PCP - General Naturopathic Medicine 03/06/24 documented as of this encounter
[2024-06-12 20:00] LABS: Abs Immature Grans 0.03 10^3/uL (0.0-0.06); Absolute Basophil Count 0.06 10^3/uL (0.0-0.2); Absolute Eosinophil Count 0.21 10^3/uL (0.0-0.7); Absolute Lymphocyte Count 1.57 10^3/uL (1.2-3.4); Absolute Monocyte Count 0.49 10^3/uL (0.1-0.8); Absolute Neutrophil Count 5.31 10^3/uL (1.2-6.7); Basophils % 0.8 %; Eosinophils % 2.7 %; HCT 33.7 % (40.0-50.0); HGB 11.1 g/dL (13.5-17.5); Immature Grans % 0.4 %; Lymphocytes % 20.5 %; MCH 29.3 pg (27.0-33.0); MCHC 32.9 % (32.0-36.0); MCV 89 fL (80-95); MPV 10.2 fL (8.0-11.0); Monocytes % 6.4 %; Neutrophils % 69.2 %; Platelet Count 229 10^3/uL (130-400); RBC 3.79 10^6/uL (4.36-5.78); RDW 13.8 % (11.8-14.1); RDW-SD 44.4 fL; WBC 7.67 10^3/uL (4.4-10.8)
[2024-06-12 20:10] LABS: C-Reactive Protein 0.68 mg/dL (<or=0.5)
== END 2024-06-12 19:01 | disposition home or self-care (01) ==
LOC: LBN 19:00
DX: R78.81 Bacteremia (principal)
CPT/HCPCS: 85025; 86140

== ENCOUNTER 2024-06-19 20:23 | Outpatient (REF) | payer BC, SELFPAY ==
[2024-06-19 17:09] LABS: Abs Immature Grans 0.02 10^3/uL (0.0-0.06); Absolute Eosinophil Count 0.16 10^3/uL (0.0-0.7); Absolute Lymphocyte Count 1.48 10^3/uL (1.2-3.4); Absolute Monocyte Count 0.58 10^3/uL (0.1-0.8); Absolute Neutrophil Count 4.45 10^3/uL (1.2-6.7); Basophils % 1.5 %; Eosinophils % 2.4 %; HCT 34.2 % (40.0-50.0); HGB 11.2 g/dL (13.5-17.5); Immature Grans % 0.3 %; Lymphocytes % 21.8 %; MCH 29.2 pg (27.0-33.0); MCHC 32.7 % (32.0-36.0); MCV 89 fL (80-95); MPV 9.6 fL (8.0-11.0); Monocytes % 8.5 %; Neutrophils % 65.5 %; Platelet Count 231 10^3/uL (130-400); RBC 3.83 10^6/uL (4.36-5.78); RDW 13.3 % (11.8-14.1); WBC 6.79 10^3/uL (4.4-10.8)
[2024-06-19 17:15] LABS: C-Reactive Protein 0.69 mg/dL (<or=0.5)
== END 2024-06-19 20:24 | disposition home or self-care (01) ==
LOC: LBN 20:23
DX: R78.81 Bacteremia (principal); I35.1 Nonrheumatic aortic (valve) insufficiency; Z45.2 Encounter for adjustment and management of vascular access device
CPT/HCPCS: 85025; 86140

== ENCOUNTER 2024-06-26 15:44 | Outpatient (REF) | payer BC, SELFPAY ==
[2024-06-26 16:48] LABS: Abs Immature Grans 0.02 10^3/uL (0.0-0.06); Absolute Basophil Count 0.08 10^3/uL (0.0-0.2); Absolute Lymphocyte Count 1.44 10^3/uL (1.2-3.4); Absolute Monocyte Count 0.47 10^3/uL (0.1-0.8); Absolute Neutrophil Count 3.77 10^3/uL (1.2-6.7); Basophils % 1.4 %; Eosinophils % 1.7 %; HCT 36.6 % (40.0-50.0); HGB 11.9 g/dL (13.5-17.5); Immature Grans % 0.3 %; Lymphocytes % 24.5 %; MCH 29.2 pg (27.0-33.0); MCHC 32.5 % (32.0-36.0); MCV 90 fL (80-95); MPV 9.2 fL (8.0-11.0); Neutrophils % 64.1 %; Platelet Count 251 10^3/uL (130-400); RBC 4.07 10^6/uL (4.36-5.78); RDW 13.7 % (11.8-14.1); RDW-SD 45.1 fL; WBC 5.88 10^3/uL (4.4-10.8)
[2024-06-26 16:55] LABS: C-Reactive Protein < 0.50 mg/dL (<or=0.5)
== END 2024-06-26 15:45 | disposition home or self-care (01) ==
LOC: LBN 15:44
DX: R78.81 Bacteremia (principal); I35.1 Nonrheumatic aortic (valve) insufficiency; I34.2 Nonrheumatic mitral (valve) stenosis
CPT/HCPCS: 85025; 86140

== ENCOUNTER 2024-07-03 15:14 | Outpatient (REF) | payer BC, SELFPAY ==
[2024-07-03 16:21] LABS: Abs Immature Grans 0.02 10^3/uL (0.0-0.06); Absolute Basophil Count 0.05 10^3/uL (0.0-0.2); Absolute Eosinophil Count 0.08 10^3/uL (0.0-0.7); Absolute Lymphocyte Count 1.98 10^3/uL (1.2-3.4); Absolute Monocyte Count 0.38 10^3/uL (0.1-0.8); Absolute Neutrophil Count 2.27 10^3/uL (1.2-6.7); Eosinophils % 1.7 %; HCT 36.1 % (40.0-50.0); HGB 11.7 g/dL (13.5-17.5); Immature Grans % 0.4 %; Lymphocytes % 41.4 %; MCHC 32.4 % (32.0-36.0); MCV 90 fL (80-95); MPV 9.2 fL (8.0-11.0); Monocytes % 7.9 %; Neutrophils % 47.6 %; Platelet Count 258 10^3/uL (130-400); RBC 4.03 10^6/uL (4.36-5.78); RDW 13.7 % (11.8-14.1); RDW-SD 44.9 fL; WBC 4.78 10^3/uL (4.4-10.8)
[2024-07-03 16:40] LABS: C-Reactive Protein < 0.50 mg/dL (<or=0.5)
== END 2024-07-03 15:15 | disposition home or self-care (01) ==
LOC: LBN 15:14
DX: R78.81 Bacteremia (principal); I35.1 Nonrheumatic aortic (valve) insufficiency; I34.2 Nonrheumatic mitral (valve) stenosis
CPT/HCPCS: 85025; 86140

== ENCOUNTER 2024-07-26 09:49 | Outpatient (REF) | payer BC, SELFPAY ==
[2024-07-26 14:21] LABS: Absolute Basophil Count 0.04 10^3/uL (0.0-0.2); Absolute Lymphocyte Count 1.81 10^3/uL (1.2-3.4); Absolute Monocyte Count 0.41 10^3/uL (0.1-0.8); Absolute Neutrophil Count 1.87 10^3/uL (1.2-6.7); Basophils % 0.9 %; Eosinophils % 2.4 %; HCT 42.2 % (40.0-50.0); HGB 13.6 g/dL (13.5-17.5); Lymphocytes % 42.8 %; MCH 29.2 pg (27.0-33.0); MCHC 32.2 % (32.0-36.0); MCV 91 fL (80-95); MPV 9.4 fL (8.0-11.0); Monocytes % 9.7 %; Neutrophils % 44.2 %; Platelet Count 218 10^3/uL (130-400); RBC 4.65 10^6/uL (4.36-5.78); RDW 13.9 % (11.8-14.1); RDW-SD 46.5 fL; WBC 4.23 10^3/uL (4.4-10.8)
[2024-07-26 14:25] LABS: ESR 4 mm/hr (0-15)
[2024-07-26 14:39] LABS: Iron 66 ug/dL (65-175)
[2024-07-26 14:45] LABS: Anion Gap 3.7 mmol/L (3-11); BUN 18 mg/dL (7-18); CO2 31.3 mmol/L (21.0-32.0); CREATININE 1.2 mg/dL (0.70-1.30); Chloride 107 mmol/L (98-107); Estimated GFR 76.48 (mL/min/1.73m2); Ferritin 78 ng/mL (26-388); Glucose 98 mg/dL (74-106); Potassium 4.9 mmol/L (3.5-5.1); Sodium 142 mmol/L (136-145)
== END 2024-07-26 09:50 | disposition home or self-care (01) ==
LOC: NCHCN 09:49
PROVIDERS: PCP Physician Assistant; Visit Provider Physician Assistant
DX: I33.0 Acute and subacute infective endocarditis (principal); Z86.39 Personal history of other endocrine, nutritional and metabolic disease
CPT/HCPCS: 80048; 85652; 82728; 83540; 85025

== ENCOUNTER 2025-02-06 15:33 | Outpatient (REF) | payer BC, SELFPAY ==
[2025-02-06 15:34] LABS: ALT 39 U/L (16-63); AST 34 U/L (15-37); Albumin 4.1 g/dL (3.4-5.0); Alkaline Phosphatase 53 U/L (46-116); Anion Gap 7.6 mmol/L (3-11); BUN 25 mg/dL (7-18); Bilirubin, Total 0.4 mg/dL (0.2-1.0); CO2 29.4 mmol/L (21.0-32.0); Calcium 8.6 mg/dL (8.5-10.1); Calculated LDL 127 mg/dL (<100); Chloride 103 mmol/L (98-107); Cholesterol 203 mg/dL (<200); Estimated GFR 84.89 (mL/min/1.73m2); Glucose 95 mg/dL (74-106); HDL Cholesterol 67 mg/dL (>or=40); Potassium 4.3 mmol/L (3.5-5.1); Sodium 140 mmol/L (136-145); Total Protein 7.0 g/dL (6.4-8.2); Triglyceride 49 mg/dL (<150)
== END 2025-02-06 15:34 | disposition home or self-care (01) ==
LOC: NCHCN 15:33
PROVIDERS: PCP Physician Assistant; Visit Provider Physician Assistant
DX: I10 Essential (primary) hypertension (principal); R79.89 Other specified abnormal findings of blood chemistry; Z13.220 Encounter for screening for lipoid disorders
CPT/HCPCS: 80053; 80061